=== PATIENT | male | born 1955 | race Caucasian/White ===

== ENCOUNTER 2021-01-17 09:56 | Emergency (ER) | payer MEDICARE, OTHER, SELFPAY ==
[2021-01-17 09:57] VITALS: BP 159/103; PULSE 69; RESP 14; TEMP 37.1; O2SAT 99; BMI 28.7
--- NOTE | 2021-01-17 10:16 | CT_ITS ---
EXAM: CT ABDOMEN AND PELVIS WITHOUT INTRAVENOUS CONTRAST : 1955 CLINICAL INDICATION: lower abd pain TECHNIQUE: Helically acquired images were obtained of the abdomen and pelvis without intravenous contrast. This CT exam was performed using one or more of the following dose reduction techniques: automated exposure control, adjustment of the mA and/or kV according to patient size, and/or use of iterative reconstruction technique. This report was created using [employer] report generation technology. COMPARISON: None. FINDINGS: LOWER THORAX: Unremarkable. Lung bases are clear. No cardiomegaly. No significant pericardial effusion. ABDOMEN: LIVER: Heterogeneous density of the liver suggestive of hepatic steatosis with regions of fat sparing. GALLBLADDER AND BILE DUCTS: Unremarkable. No calcified gallstones. No gallbladder distention or wall edema. No intra- or extrahepatic biliary ductal dilation. PANCREAS: Unremarkable. No focal cystic mass. SPLEEN: Unremarkable. Normal size without focal cystic or solid mass. ADRENALS: Unremarkable. No nodules. KIDNEYS AND URETERS: 3 mm distal right ureteral stone noted associated with right hydronephrosis, right hydroureter and right perinephric edema. Additional stones are noted within the urinary bladder. Small stones are present within both kidneys. Normal renal size and position. STOMACH AND BOWEL: Unremarkable. No stomach or bowel distention. No focal inflammatory change. PELVIS: APPENDIX: Appendix is visualised and normal in appearance. BLADDER: 2 small bladder stones. No bladder wall thickening. REPRODUCTIVE: The prostate gland is moderately enlarged. ABDOMEN and PELVIS: INTRAPERITONEAL SPACE: Unremarkable. No ascites or other fluid collection. No free air. BONES/JOINTS: Bilateral L5 spondylolysis noted with mild L5-S1 spondylolisthesis. Prominent disc degeneration noted at L5-S1. No suspicious lytic or blastic abnormality. SOFT TISSUES: There is a small fat-containing umbilical hernia. VASCULATURE: Unremarkable. Abdominal aorta is non-dilated. LYMPH NODES: Unremarkable. No enlarged lymph nodes. CT/Abdomen/Pelvis without Cont IMPRESSION: 1. Obstructive 3 mm distal right ureteral stone. 2. Bilateral nephrolithiasis. 3. Urinary bladder stones measuring 4 and 3 mm. 4. Prostatomegaly. 5. Hepatic steatosis. Individualized dose optimization techniques were used for this CT. at 1110 Reported and signed by: Trung Jeffers MD Electronically Signed: Trung Jeffers MD at 11:09 EDT Tel , Service support ,
--- NOTE | 2021-01-17 10:17 | ED.VIS.GI ---
HPI HPI - GI History of Present Illness Chief Complaint: Abd Pain Informant: patient Abdominal Pain/Flank Pain Current Severity: Moderate Narrative Narrative: Presents increasing lower abdominal pain since 3 AM this morning. Just flew in from [place] midnight visiting his daughter. Nausea without vomiting. Denies fever chills or sweats. He states feels urgency for bowel movements. No urinary symptoms. No history of diverticulitis. No abdominal surgeries in the past. Colonoscopy 6 years ago with 1 polypectomy in [place]. History of paroxysmal atrial fibrillation on diltiazem and baby aspirin. Prior similar symptoms: No PFSH PFSH Medical History (Updated 01/17/21 @ 13:[address] Krzysztof Floyd DO) A-fib Home Medications aspirin 81 mg PO DAILY 01/17/21 [History Last Taken Unknown] diltiazem HCl [Cardizem LA] 120 mg PO DAILY 01/17/21 [History Last Taken Unknown] ibuprofen 600 mg PO Q6H PRN PRN #20 tab 01/17/21 [Rx Last Taken Unknown] ondansetron 4 mg PO Q6H PRN #10 tab 01/17/21 [Rx Last Taken Unknown] oxycodone-acetaminophen [Percocet] 1 tab PO Q6H PRN 3 Days #12 tab 01/17/21 [Rx Last Taken Unknown] Allergy/AdvReac Type Severity Reaction Status Date / Time No Known Allergies Allergy Verified 01/17/21 09:58 Social History Smoking Status: Never smoker ROS ROS ED Constitutional Constitutional ED: Denies chills, fever(s) or sweats Eyes Eyes: Denies change in vision ENT ENT ED: Denies dysphagia or sore throat Cardiovascular Cardiovascular: Denies chest pain, leg edema, palpitations or racing heartbeat Respiratory/Chest Respiratory/Chest: Denies cough, dyspnea or dyspnea on exertion Gastrointestinal Gastrointestinal: Reports abdominal pain and nausea; Denies diarrhea or vomiting Genitourinary Genitourinary ED: Denies dysuria, hematuria or urinary frequency Musculoskeletal Musculoskeletal: Denies back pain, extremity pain or neck pain Integumentary Denies rash or wounds Neurologic Neurologic: Denies headache(s), paresthesias or weakness EXAM Physical Exam Const Vital Signs: 01/17/21 09:57 Temperature 98.8 F Temperature Source Temporal Pulse Rate 69 Respiratory Rate 14 Blood Pressure 159/103 H Blood Pressure Mean 121 Pulse Ox 99 Oxygen Delivery Method Room Air Positive well nourished and well developed Constitutional Narrative: Uncomfortable, nontoxic General Appearance ED: well developed HEENT Reports moist mucous membranes normocephalic and atraumatic Eyes PERRL, EOMs intact bilaterally and conjunctivae normal General Eye ED: Yes normal appearance of both eyes Neck no lymphadenopathy and supple General: Negative for tenderness Chest Wall Chest: Negative for tenderness Resp normal respiratory effort and normal air movement Effort and Inspection: symmetric chest movement; Negative for respiratory distress Cardio regular rate, regular rhythm and no murmurs Peripheral Pulses: pulses 2+ throughout GI normal to inspection, nondistended, normoactive bowel sounds GI Narrative: Tender palpation across lower abdomen throughout without guarding or rebound. Palpation: soft; Negative for guarding or rebound tenderness present Back/Spine no CVA tenderness and no thoracic nor lumbar tenderness Extremity normal to inspection General Extremety ED: Negative for edema or tenderness General Extremity: Negative for edema Neuro oriented x3 and no sensory deficits noted Sensorium / Orientation: awake and alert Skin no rashes or lesions noted and no wounds MDM MDM MDM Narrative Medical decision making narrative: Patient with no guarding or rebound on exam. Nonsurgical abdomen. Pain in the lower quadrants. Work-up initiated. White count of 14.5 liver and lipase all normal. CT scan with a normal appendix however did note obstructive 3 mm distal right ureteral stone. He was given morphine and Zofran initially. Also reported from notes there is a 3 mm and 4 mm stone currently in his bladder. Reevaluate patient symptoms were improving however slightly there. He is given Toradol with improvement. I did add on a urine noted blood however no infection. He reports he urinated before the CT scan therefore the stones are still there. I discussed with patient these findings. He will be sent home with a urine strainer and follow-up with urology since he will be here for 3 more weeks. Prescription sent to [facility] pharmacy for which he uses at home. Signs and symptoms discussed return. All questions were answered. Lab Data Attestation: I reviewed the patient's lab results. Labs: Laboratory Results - last 24 hr 01/17/21 01/17/21 01/17/21 10:15 10:15 12:05 WBC 14.5 H RBC 4.83 Hgb 14.7 Hct 43.9 MCV 90.9 MCH 30.4 MCHC 33.5 RDW Std Deviation 44.9 H RDW Coeff of Shelly 13.5 Plt Count 237 MPV 10.0 Immature Gran % (Auto) 1.400 H Neut % (Auto) 81.8 H Lymph % (Auto) 9.7 L [place] % (Auto) 6.5 Eos % (Auto) 0.1 Baso % (Auto) 0.5 Absolute Neuts (auto) 11.9 H Absolute Lymphs (auto) 1.41 Nucleated RBC % 0 Sodium 141 Potassium 3.7 Chloride 109 H Carbon Dioxide 29.0 Anion Gap 3 L BUN 24 H Creatinine 1.15 Estim Creat Clear Calc 70.29 Est GFR (MDRD) Af Amer 82 Est GFR (MDRD) Non-Af 68 BUN/Creatinine Ratio 20.9 H Glucose 118 H Calcium 9.7 Total Bilirubin 0.40 AST 15 ALT 38 Alkaline Phosphatase 81 Total Protein 7.5 Albumin 3.8 Globulin 3.7 Albumin/Globulin Ratio 1.0 Lipase 37 L Urine Color Yellow Urine Clarity Clear Urine pH 7.0 Ur Specific [place] 1.015 Urine Protein Negative Urine Glucose (UA) Normal Urine Ketones Negative Urine Occult Blood 50 H Urine Nitrite Negative Urine Bilirubin Negative Urine Urobilinogen Normal Ur Leukocyte Esterase Negative Urine RBC 0-5 SEEN Urine WBC 0 SEEN Ur Squamous Epith Cells 0 SEEN Urine Bacteria 0 SEEN Urine Mucus 0 SEEN Radiography Diagnostic Testing: Radiology Impression Abdomen/Pelvis CT 01/17/21 10:16 IMPRESSION: 1. Obstructive 3 mm distal right ureteral stone. 2. Bilateral nephrolithiasis. 3. Urinary bladder stones measuring 4 and 3 mm. 4. Prostatomegaly. 5. Hepatic steatosis. Individualized dose optimization techniques were used for this CT. at 1110 Reported and signed by: Trung Jeffers MD Electronically Signed: Trung Jeffers MD at 11:09 EDT Tel , Service support , Discharge Plan Triage Chief Complaint: Abd Pain ED Provider: Krzysztof Floyd Dx/Rx/DC Orders Clinical Impression: Urolithiasis, Hematuria Instructions: Hematuria: Possible Causes, ED Kidney Stone w/ Colic Prescriptions: New ondansetron 4 mg tablet,disintegrating 4 mg PO Q6H PRN (Reason: nausea and vomiting) Qty: 10 RF: 0 ibuprofen 600 mg tablet 600 mg PO Q6H PRN PRN (Reason: pain) Qty: 20 RF: 0 oxycodone-acetaminophen [Percocet] 5-325 mg tablet 1 tab PO Q6H PRN (Reason: pain) 3 Days Qty: 12 RF: 0 No Action Cardizem LA 120 mg Tablet Extended Release 24 Hr 120 mg PO DAILY RF: 0 aspirin 81 mg Capsule 81 mg PO DAILY RF: 0 Primary Care Provider: Care Physician,No Primary Referrals: Jalen Stephens MD [STAFF PHYSICIAN] - 3-5 Days Care Physician,No Primary [Primary Care Provider] - Activity Restrictions/Additional Instructions: Currently 3 mm distal right ureteral stone. 2 stones currently in the bladder one 3 mm and one 4 mm. Strain your urine. Take medications as prescribed. Follow-up with urology. Return if any worsening symptoms. Disposition Disposition: Home, Self Care
[2021-01-17] MEDS: Ondansetron 4 MG/2 ML Vial IV (10:34)
[2021-01-17] MEDS: 0.9% Normal Saline 1,000 ML 1000 ML IV (10:34)
[2021-01-17] MEDS: Morphine 4 MG/ML Syringe IV (10:34)
[2021-01-17 10:38] LABS: Absolute Lymphocyte Count 1.41 X10^3/uL (0.83-4.51); Absolute Neutrophil Count 11.9 X10^3/uL (2.0-7.7); Basophil# 0.07 X10^3/uL; Basophil% 0.5 % (0-1); Eosinophil# 0.01 X10^3/uL; Eosinophils% 0.1 % (0-5); Hematocrit 43.9 % (40-54); Hemoglobin 14.7 g/dL (13.0-16.5); Lymphocyte # 1.41 X10^3/ul (0.83-4.51); Lymphocyte % 9.7 % (19-41); Mean Corp Hgb Conc 33.5 g/dL (32-36); Mean Corpuscular Hgb 30.4 pg (27.0-32.0); Mean Corpuscular Volume 90.9 fL (80-94); Monocyte# 0.95 X10^3/uL; Monocyte% 6.5 % (0-10); NRBC Flagged by Analyzer 0 % (0-5); Neutrophil # 11.87 X10^3/uL (2.7-7.7); Neutrophil % 81.8 % (47-70); Platelet Count 237 K/mm3 (150-450); RBC Distribution Width CV 13.5 % (11.6-14.6); RBC Distribution Width SD 44.9 fl (35.1-43.9); Red Blood Count 4.83 M/mm3 (4.6-6.2); White Blood Count 14.5 K/mm3 (4.4-11.0)
[2021-01-17 10:55] LABS: AST(SGOT) 15 U/L (15-37); Alanine Aminotransfer ALT/SGPT 38 U/L (16-61); Albumin, Serum 3.8 g/dL (3.2-5.0); Alkaline Phosphatase 81 U/L (45-117); Anion Gap 3 (5-15); BUN 24 mg/dL (7-18); BUN/Creat Ratio 20.9 RATIO (10-20); Calcium,Total 9.7 mg/dL (8.5-10.1); Chloride 109 mmol/L (98-107); Creatinine, Serum 1.15 mg/dL (0.70-1.30); EST Glomerular Filtration Rate 68 mL/min (>60); Est Glom Filt Rate - Afr Amer 82 mL/min (>60); Estimated Creatinine Clearance 70.29 ml/min; Globulin 3.7 g/dL (2.2-4.2); Glucose 118 mg/dL (74-106); Lipase 37 U/L (73-393); Potassium 3.7 mmol/L (3.5-5.1); Protein, Total 7.5 g/dL (6.4-8.2); Sodium Level 141 mmol/L (136-145)
[2021-01-17 12:10] LABS: Bacteria 0 SEEN /hpf (None Seen); Mucous, Urine 0 SEEN /hpf (<or=2+); Squamous Epithelial Cells - UA 0 SEEN /hpf (0-5); White Blood Cells 0 SEEN /hpf (0-5)
[2021-01-17 12:13] LABS: Color, Urine Yellow (Yellow); Glucose, Dipstick Normal (Normal); Ketone-Dipstick Negative (Negative); Leukocyte Esterase-Dipstick Negative /ul (Negative); Nitrite-Dipstick Negative (Negative); Occult Blood-Urine 50 /ul (Negative); Protein-Dipstick Negative (Negative); Specific Gravity, Urine 1.015 (1.002-1.030); Urine Bilirubin Dipstick Negative (Negative); Urine Clarity Clear (Clear); Urine Urobilinogen Normal (Normal)
[2021-01-17 12:28] LABS: Red Blood Cells-Urine 0-5 SEEN /hpf (0-5)
[2021-01-17] MEDS: Ketorolac 15 MG/ML Vial IV (12:38)
[2021-01-17 13:23] VITALS: BP 142/79; PULSE 84; RESP 18; O2SAT 97
--- NOTE | 2021-01-17 13:24 | ED.RN ---
THIS NURSE REVIEWED D/C INSTRUCTIONS WITH PT. PT VERBALIZED UNDERSTANDING OF INSTRUCTIONS. IV D/C. IV CATHETER INTACT. PT TOLERATED WELL. PT DENIES FURTHER NEEDS OR QUESTIONS AT THIS TIME
== END 2021-01-17 13:25 | disposition home or self-care (01) ==
PROVIDERS: Emergency Provider Emergency Medicine
DX: R31.9 Hematuria, unspecified (principal); N20.2 Calculus of kidney with calculus of ureter; N21.0 Calculus in bladder; N40.0 Benign prostatic hyperplasia without lower urinary tract symptoms; K76.0 Fatty (change of) liver, not elsewhere classified; I48.0 Paroxysmal atrial fibrillation; Z79.82 Long term (current) use of aspirin; Z79.899 Other long term (current) drug therapy
CPT/HCPCS: 74176; 80053; 81001; 83690; 85025; 96361; 96374; 96375; 99283; J7030; A4216; J2405

== ENCOUNTER → 2022-09-19 | Outpatient (CLI) | payer MEDICARE, OTHER, SELFPAY ==
--- NOTE | 2022-09-19 06:45 | ECHOD_ITS ---
Reason For Study: Afib, Aflutter Procedure This was a 2D Doppler, Color Flow transthoracic echocardiogram. Exam performed in department. Left Ventricle Mild concentric left ventricular hypertrophy. The left ventricular ejection fraction is 65 %. Diastolic function is indeterminate. Right Ventricle Normal right ventricle. Atria The left atrium is severely enlarged. Normal right atrium. Bubble contrast study is negative for PFO/ASD. Mitral Valve Mild-Moderate (1-2+) mitral valve insufficiency. Tricuspid Valve Mild (1+) tricuspid valve insufficiency. Normal pulmonary artery pressure. Aortic Valve Trisinus/trileaflet aortic valve. Trivial aortic valve insufficiency. Pulmonic Valve Mild-Moderate (1-2+) pulmonic valve insufficiency. Great Vessels Normal sized aortic root. Pericardium/Pleural No pericardial effusion. Medication Performed a rapid injection of agitated mix of 9 cc saline and 1cc air to assess for atrial septal defect. MMode/2D Measurements & Calculations LVIDd: 5.9 cm IVSd: 1.3 cm Ao root diam: 3.6 cm LVIDs: 3.2 cm LVPWd: 1.4 cm RVDd: 3.0 cm FS: 45.5 % LAV(MOD-bp): 72.7 ml LVAd ap4: 32.0 cm2 SV(MOD-sp4): 60.4 ml LAV(MOD-bp) Indexed: 32.5 ml/m2 LVLd ap4: 8.1 cm LAV(MOD-sp2): 64.7 ml EDV(MOD-sp4): 101.3 ml LAV(MOD-sp4): 80.7 ml EDV(sp4-el): 107.7 ml LVAs ap4: 19.0 cm2 LVLs ap4: 7.4 cm ESV(MOD-sp4): 40.8 ml ESV(sp4-el): 41.5 ml EF(MOD-sp4): 59.7 % EF(sp4-el): 61.4 % SV(sp4-el): 66.2 ml LA A4 area: 25.7 cm2 LA dimension(2D): 5.1 cm RA A4 area: 14.5 cm2 TAPSE_phl: 2.6 cm Time Measurements MV dec time: 0.25 sec Doppler Measurements & Calculations MV E max ray: 76.2 cm/sec Lat Peak E' Ray: 5.2 cm/sec Med Peak E' Ray: 6.1 cm/sec MV A max ray: 67.0 cm/sec E/E' lat: 14.8 E/E' med: 12.5 MV E/A: 1.1 MV dec slope: 308.0 cm/sec2 Ao V2 max: 112.5 cm/sec LV V1 max: 86.2 cm/sec Ao max P.1 mmHg LV V1 max P.0 mmHg Ao V2 mean: 78.1 cm/sec Ao mean P.8 mmHg Ao V2 VTI: 26.4 cm PA V2 max: 69.3 cm/sec PI end-d ray: 79.1 cm/sec TR max ray: 231.4 cm/sec TR max P.4 mmHg ECHO/Echo Complete Interpretation Summary Mild concentric left ventricular hypertrophy. The left ventricular ejection fraction is 65 %. Diastolic function is indeterminate. The left atrium is severely enlarged. Bubble contrast study is negative for PFO/ASD. Mild-Moderate (1-2+) mitral valve insufficiency. Mild (1+) tricuspid valve insufficiency. Mild-Moderate (1-2+) pulmonic valve insufficiency. Ordering Physician: Enid Sparrow Referring Physician: Emma Tilley Performed By: Pat Valdivia, RDCS, RVT
--- NOTE | 2022-09-19 13:20 | STRESSREP_ITS ---
Stress Test Report Date: 09/19/2022 Procedure: Pharmacologic stress nuclear imaging study Indications: Arrhythmia Consent: Per the patient Procedure: The patient underwent pharmacologic (Regadenoson 0.4mg ) evaluation with a peak heart rate of 81 beats per minute (52%predicted maximal heart rate) and a peak blood pressure of 142/86 mmHg. The baseline ECG demonstrated normal sinus rhythm. The peak pharmacologic ECG demonstrated no ischemic changes. There were no cardiac dysrhythmias pretest, during pharmacologic infusion, or recovery. There was no complaint of chest discomfort during pharmacologic infusion or recovery. The patient was injected with 14.3 millicuries of technetium 99m Cardiolite and subsequently rest SPECT Cardiolite nuclear imaging was obtained in the horizontal long, vertical long, and short axis views. The patient underwent pharmacologic (Regadenoson) evaluation. The patient was injected with 44.1 millicuries of technetium 99m Cardiolite and subsequently stress SPECT Cardiolite nuclear imaging was obtained in the horizontal long, vertical long, and short axis views. A gated Cardiolite study at peak stress was obtained. The examination was stopped secondary to completion of protocol. Rest and stress SPECT Cardiolite nuclear imaging status post realignment, normalization, and attenuation correction demonstrate no fixed or reversible perfusion defects. There is end systolic thickening and brightening. The gated Cardiolite study demonstrates myocardial thickening and inward wall motion. The reported LVEF is 56%. Impression: 1. Pharmacologic (Regadenoson) evaluation 2. Peak pharmacologic ECG with no ischemic changes. 3. There were no cardiac dysrhythmias pretest, during pharmacologic infusion, or recovery. 5. No fixed or reversible perfusion defects. 6. The gated Cardiolite study reports an LVEF of 56%. This note was generated with [email or web address] software. It may contain incorrect words, spelling, and punctuation that were not noted in checking the note before signing.
== END | disposition home or self-care (01) ==
LOC: CVS 06:43
PROVIDERS: PCP Nurse Practitioner Adult Health; Referring Provider Internal Medicine Cardiovascular Disease; Visit Provider Internal Medicine Cardiovascular Disease
DX: Z01.810 Encounter for preprocedural cardiovascular examination (principal); I48.0 Paroxysmal atrial fibrillation; I47.1 Supraventricular tachycardia; I48.92 Unspecified atrial flutter; I37.1 Nonrheumatic pulmonary valve insufficiency; I51.7 Cardiomegaly
CPT/HCPCS: 78452; 93017; 93306; A9500; A4216; J2785

== ENCOUNTER → 2023-06-05 | Outpatient (CLI) | payer MEDICARE, OTHER, SELFPAY ==
[2023-06-05 14:28] LABS: Absolute Lymphocyte Count 2.33 X10^3/uL (0.83-4.51); Absolute Neutrophil Count 6.5 X10^3/uL (2.0-7.7); Basophil# 0.07 X10^3/uL; Basophil% 0.7 % (0-1); Eosinophil# 0.06 X10^3/uL; Eosinophils% 0.6 % (0-5); Hematocrit 37.6 % (40-54); Lymphocyte # 2.33 X10^3/ul (0.83-4.51); Lymphocyte % 23.3 % (19-41); Mean Corp Hgb Conc 31.9 g/dL (32-36); Mean Corpuscular Hgb 28.2 pg (27.0-32.0); Mean Corpuscular Volume 88.5 fL (80-94); Monocyte# 0.98 X10^3/uL; Monocyte% 9.8 % (0-10); NRBC Flagged by Analyzer 0 % (0-5); Neutrophil # 6.53 X10^3/uL (2.7-7.7); Neutrophil % 65.1 % (47-70); Platelet Count 325 K/mm3 (150-450); RBC Distribution Width CV 14.5 % (11.6-14.6); RBC Distribution Width SD 46.9 fl (35.1-43.9); Red Blood Count 4.25 M/mm3 (4.6-6.2)
--- OUTSIDE RECORDS SUMMARY | 2023-06-05 14:28 | XMS RPT_ITS | CCD ---
Author Name Unknown Address [address] [facility] [address] [place] [address] Organization [facility] Care Team Providers Care Extractor Puller Name Role Phone NO, PHYSICIAN Primary Care Unavailable SYSTEM, PROVIDER NOT IN Admitting Unavaila ble SYSTEM, PROVIDER NOT IN Admitting Unavaila ble NO, PHYSICIAN Primary Care Unavailable Pcp, No Primary Care Provider Unavailhilda e Jerry [facility].Ryan VALENTIN Primary Care Provider Jerry [facility].Ryan VALENTIN Primary Care Provider Chucky Tim Heart Unavailable RYAN EDWARDS Primary Care Unavailable STAN TAI JR Attending Unavaila STAN Rankin JR Referring Unavaila ILEANA Burns Attending Unavailable RYAN EDWARDS Primary Care Unavailable Katya Ortiz RN Unavailable Unavailable RYAN EDWARDS Referring Unavailable RYAN EDWARDS Primary Care Unavailable RYAN EDWARDS Primary Care Unavailable SHAN SOTO Admitting Unavail able SHAN SOTO Attending Unavail able LINDA PARK Attending Unavailable RYAN EDWARDS Primary Care Unavailable RYAN EDWARDS Primary Care Unavailable SVITLANA DREW Attending Unavailable TYREL MAXWELL Referring Unavailable CHUYITA RHODES Consulting Unavailable LALI GEORGE II Admitting Unavailable RYAN EDWARDS Primary Care Unavailable RYAN EDWARDS Referring Unavailable RYAN EDWARDS Primary Care Unavailable SHAN SOTO Attending Unavail able RYAN EDWARDS Primary Care Unavailable SHAN SOTO Attending Unavail able RYAN EDWARDS Referring Unavailable CARLOS ENRIQUE HUGHES Admitting Unavaila CARLOS ENRIQUE Hoffman Attending Unavaila ble JERRY, RYAN M Primary Care Unavailable JERRY, RYAN M Primary Care Unavailable JERRY, RYAN M Referring Unavailable JERRY, RYAN M Primary Care Unavailable JERRY, RYAN M Referring Unavailable JERRY RYAN M Primary Care Unavailable JERRY, RYAN M Referring Unavailable JERRY, RYAN M Primary Care Unavailable JERRY, RAYN M Referring Unavailable JERRY, RYAN M Primary Care Unavailable JERRY, RYAN M Referring Unavailable JERRY, RYAN M Primary Care Unavailable JERRY, RYAN M Attending Unavailable JERRY, RYAN M Primary Care Unavailable JERRY, RYAN M Attending Unavailable JERRY, RYAN M Primary Care Unavailable JERRY, RYAN M Referring Unavailable JERRY, RYAN M Primary Care Unavailable JERRY, RYAN M Referring Unavailable JERRY, RYAN M Primary Care Unavailable JERRY, RYAN M Attending Unavailable JERRY, RYAN M Primary Care Unavailable JERRY, RYAN M Referring Unavailable JERRY, RYAN M Primary Care Unavailable STAN TAI JR Attending Unavaila ble RYAN EDWARDS M Primary Care Unavailable ANALISA DAMON Attending Unavailable JERRY, RYAN M Primary Care Unavailable TABITHA MARTINS Attending Unava ilable JERRY, RYAN M Primary Care Unavailable TABITHA MARTINS Attending Unava ilable JERRY, RYAN M Primary Care Unavailable JERRY, RYAN M Referring Unavailable JERRY, RYAN M Primary Care Unavailable JERRY, RYAN M Primary Care Unavailable JERRY, RYAN M Referring Unavailable JERRY, RYAN M Primary Care Unavailable JERRY, RYAN M Attending Unavailable JERRY, RYAN M Referring Unavailable JERRY, RYAN M Primary Care Unavailable JERRY, RYAN M Referring Unavailable JERRY, RYAN M Primary Care Unavailable JERRY, RYAN M Referring Unavailable JERRY, RYAN M Primary Care Unavailable JERRY, RYAN M Referring Unavailable JERRY, RYAN M Primary Care Unavailable JERRY, RYAN M Referring Unavailable JERRY, RYAN M Primary Care Unavailable JERRY, RYAN M Referring Unavailable JERRY, RYAN M Referring Unavailable JERRY, RYAN M Primary Care Unavailable JERRY, RYAN M Primary Care Unavailable TYREL MAXWELL Attending Unavailable JERRY, RYAN M Primary Care Unavailable JERRY, RYAN M Attending Unavailable JERRY, RYAN M Primary Care Unavailable JERRY, RYAN M Attending Unavailable JERRY, RYAN M Referring Unavailable JERRY, RYAN M Primary Care Unavailable JERRY, RYAN M Referring Unavailable JERRY, RYAN M Primary Care Unavailable JERRY, RYAN M Primary Care Unavailable JERRY, RYAN M Referring Unavailable JERRY, RYAN M Referring Unavailable JERRY, RYAN M Primary Care Unavailable JERRY, RYAN M Referring Unavailable JERRY, RYAN M Primary Care Unavailable STAN TAI JR Referring Unavaila ble JERRY, RYAN M Primary Care Unavailable JERRY, RYAN M Attending Unavailable JERRY, RYAN M Primary Care Unavailable JERRY, RYAN M Referring Unavailable RICKEY WOODRUFF Attending Unavailabl e JERRY, RYAN M Primary Care Unavailable RICKEY WOODRUFF Referring Unavailabl e JERRY, RYAN M Primary Care Unavailable RICKEY WOODRUFF Attending Unavailabl e JERRY, RYAN M Primary Care Unavailable JERRY, RYAN M Referring Unavailable JERRY, RYAN M Primary Care Unavailable JERRY, RYAN M Referring Unavailable JERRY, RYAN M Primary Care Unavailable JERRY, RYAN M Primary Care Unavailable JERRY, RYAN M Referring Unavailable JERRY, RYAN M Primary Care Unavailable JERRY, RYAN M Referring Unavailable JERRY, RYAN M Primary Care Unavailable JERRY, RYAN M Referring Unavailable JERRY, RYAN M Primary Care Unavailable JERRY, RYAN M Referring Unavailable JERRY, RYAN M Primary Care Unavailable JERRY, RYAN M Primary Care Unavailable JERRY, RYAN M Referring Unavailable JERRY, RYAN M Referring Unavailable JERRY, RYAN M Primary Care Unavailable Medications Current Medications Medication Drug Class(es) Dates Sig (Normalized) Sig (Original) acetaminophen 325 mg / oxyCODONE hydrochloride 5 mg oral tablet (2 sources) Opioid Agonist Start: 02-01-2023 End: 02-04-2023 take 1 tablet by mouth every six hours as needed for pain oxyCODONE-acetamin ophen (PERCOCET) 5-325 mg tablet Indications: Acute gout of right ankle, unspecified cause Take 1 tablet by mouth every 6 hours as needed for pain for up to 3 days. 12 tablet 0 02/01/2023 02/04/2023 Active Completed/Discontinued Medications Medication Drug Class(es) Dates Sig (Normalized) Sig (Original) finasteride 5 mg oral tablet (18 sources) 5-alpha Reductase Inhibitor Start: 12-30-2022 End: 06-28-2023 take 1 tablet by mouth once daily finasteride (PROSCAR) 5 mg tablet TAKE 1 TABLET BY MOUTH EVERY DAY 30 tablet 5 01/26/2023 Active Problems Active Problems Problem Classification Problem Date Documented Da te Episodic/Chronic Cardiac dysrhythmias (20 sources) Unspecified atrial fibrillation; Translations: [Atrial fibrillation] Onset: 02-11-2022 Chronic Disorders of lipid metabolism (3 sources) Hypercholesterolemi a; Translations: [Pure hypercholesterolemi a, unspecified] Onset: 01-26-2023 01-05-2023 Chronic Gout and other crystal arthropathies (1 source) Gout, unspecified; Translations: [Acute gout of right ankle, unspecified cause] Onset: 02-01-2023 Chronic Hyperplasia of prostate (3 sources) Benign prostatic hypertrophy without outflow obstruction; Translations: [Benign prostatic hyperplasia without lower urinary tract symptoms] Onset: 06-26-2022 Chronic Immunizations and screening for infectious disease (1 source) Requires varicella vaccination; Translations: [Encounter for immunization] Episodic Nonspecific chest pain (4 sources) Chest discomfort; Translations: [Other chest pain] Onset: 04-28-2023 04-28-2023 Episodic Nutritional deficiencies (2 sources) Vitamin D deficiency; Translations: [Vitamin D deficiency, unspecified] Onset: 09-18-2022 Chronic Open wounds of extremities (2 sources) Unspecified open wound, unspecified lower leg, initial encounter; Translations: [Laceration without foreign body of unspecified finger without damage to nail, initial encounter] Onset: 06-09-2022 Episodic Other aftercare (2 sources) Encounter for therapeutic drug level monitoring; Translations: [Encounter for therapeutic drug level monitoring] Onset: 02-11-2022 Episodic Other aftercare (2 sources) group home (current) use of anticoagulants; Translations: [buttermaker continuous churn (current) use of anticoagulants] Onset: 02-11-2022 Episodic Other circulatory disease (6 sources) Elevated blood-pressure reading without diagnosis of hypertension; Translations: [Elevated blood-pressure reading, without diagnosis of hypertension] Onset: 04-20-2023 04-20-2023 Episodic Other circulatory disease (1 source) Elevated blood-pressure reading, without diagnosis of hypertension; Translations: [Elevated BP without diagnosis of hypertension] Onset: 04-20-2023 Episodic Other connective tissue disease (1 source) Pain in right arm; Translations: [Pain in right arm] Episodic Other connective tissue disease (1 source) Diastasis recti; Translations: [Separation of muscle (nontraumatic), other site] Episodic Other connective tissue disease (1 source) Bursitis of olecranon of left elbow; Translations: [Olecranon bursitis, left elbow] 04-19-2023 Episodic Other connective tissue disease (5 sources) Infection of olecranon bursa of left elbow; Translations: [Other infective bursitis, left elbow] Onset: 04-22-2023 04-24-2023 Episodic Other connective tissue disease (2 sources) Other infective bursitis, left elbow; Translations: [Septic bursitis of elbow, left] Onset: 04-22-2023 Episodic Other connective tissue disease (1 source) Olecranon bursitis, left elbow; Translations: [Olecranon bursitis, left elbow] Onset: 03-23-2023 Episodic Other diseases of veins and lymphatics (1 source) Venous insufficiency (chronic) (peripheral); Translations: [Venous insufficiency of lower extremity, unspecified laterality] Onset: 04-22-2023 Episodic Other gastrointestinal disorders (1 source) Diarrhea, unspecified; Translations: [Diarrhea, unspecified type] Onset: 05-19-2023 Episodic Other injuries and conditions due to external causes (5 sources) Injury of Achilles tendon; Translations: [Unspecified injury of right Achilles tendon, initial encounter] 04-02-2023 Episodic Other injuries and conditions due to external causes (1 source) Unspecified injury of right Achilles tendon, initial encounter; Translations: [Injury of right Achilles tendon, initial encounter] Onset: 04-20-2023 Episodic Other lower respiratory disease (4 sources) Dyspnea on exertion; Translations: [Other forms of dyspnea] Onset: 04-28-2023 04-28-2023 Episodic Other male genital disorders (4 sources) Male erectile dysfunction, unspecified; Translations: [Impotence of organic origin] Onset: 03-11-2023 Chronic Other nervous system disorders (1 source) H/O: retinal detachment; Translations: [Personal history of other diseases of the nervous system and sense organs] 12-03-2022 Episodic Other nervous system disorders (1 source) Personal history of other diseases of the nervous system and sense organs; Translations: [Hx of retinal detachment] Onset: 12-04-2022 Episodic Other non-traumatic joint disorders (4 sources) Acute ankle pain; Translations: [Pain in right ankle and joints of right foot] 02-10-2023 Episodic Residual codes; unclassified (6 sources) Obstructive sleep apnea syndrome; Translations: [Obstructive sleep apnea (adult) (pediatric)] Onset: 04-20-2023 04-20-2023 Chronic Residual codes; unclassified (1 source) Obstructive sleep apnea (adult) (pediatric); Translations: [SHANNON (obstructive sleep apnea)] Onset: 04-20-2023 Chronic Residual codes; unclassified (4 sources) Localized edema; Translations: [Localized edema] Onset: 04-28-2023 04-28-2023 Episodic Septicemia (except in labor) (1 source) Sepsis, unspecified organism; Translations: [Sepsis, due to unspecified organism, unspecified whether acute organ dysfunction present (HCC)] Onset: 04-22-2023 Episodic Skin and subcutaneous tissue infections (8 sources) Cellulitis of left upper limb; Translations: [Cellulitis of left upper limb] Onset: 03-23-2023 04-24-2023 Episodic Sprains and strains (3 sources) Injury of shoulder and upper arm; Translations: [Strain of muscle, fascia and tendon of other parts of biceps, right arm, initial encounter] Onset: 03-28-2023 Episodic Unclassified (1 source) ER F/U Onset: 04-16-2023 Past or Other Problems Problem Classification Problem Date Documented Da te Episodic/Chronic Abdominal hernia (4 sources) Umbilical hernia; Translations: [Umbilical hernia without obstruction or gangrene] Onset: 10-14-2022 Episodic Melanomas of skin (20 sources) History of malignant melanoma of the skin; Translations: [Personal history of malignant melanoma of skin] Onset: 10-17-2003 10-17-2003 Episodic Other aftercare (20 sources) Surgical follow-up; Translations: [Follow-up examination following surgery] Onset: 10-24-2003 10-24-2003 Episodic Other connective tissue disease (20 sources) Enthesopathy of knee; Translations: [Enthesopathy of knee] Onset: 10-10-2003 10-10-2003 Episodic Other diseases of kidney and ureters (1 source) Other obstructive and reflux uropathy; Translations: [BPH with obstruction/lower urinary tract symptoms] Onset: 06-26-2022 Episodic Other non-traumatic joint disorders (1 source) Pain in right ankle and joints of right foot; Translations: [Acute right ankle pain] Onset: 02-10-2023 Episodic Other screening for suspected conditions (not mental disorders or infectious disease) (20 sources) Raised prostate specific antigen; Translations: [Elevated prostate specific antigen [PSA]] Onset: 06-11-2022 Episodic Results Test Name Value Interpretation Reference Range Facil ity Vital Signs Date Time Vital Sign Value Performing Clinician Faci lity 05-07-2023 08:28-0500 Body height 182.9 cm Ryan Edwards APRN.BARBIE Work Phone: [facility] 05-07-2023 08:28-0500 Body temperature 97.81 [degF] Ryan Edwards APRN.DATA SYSTEMS MANAGER Work Phone: [facility] 05-07-2023 08:28-0500 Body weight 104.33 kg Ryan Edwards APRN.CNP Work Phone: [facility] 05-07-2023 08:28-0500 Diastolic blood pressure 70 mm[Hg] Ryan Edwards APRN.DATA SYSTEMS MANAGER Work Phone: [facility] 05-07-2023 08:28-0500 Heart rate 64 /min Ryan Edwards APRN.DATA SYSTEMS MANAGER Work Phone: [facility] 05-07-2023 08:28-0500 Respiratory rate 18 /min Ryan Edwards APRN.DATA SYSTEMS MANAGER Work Phone: [facility] 05-07-2023 08:28-0500 SaO2% (BldA) [Mass fraction] 96 % Ryan Edwards APRN.DATA SYSTEMS MANAGER Work Phone: [facility] 05-07-2023 08:28-0500 Systolic blood pressure 122 mm[Hg] Ryan Jerry [facility].DATA SYSTEMS MANAGER Work Phone: [facility] 04-16-2023 11:35-0500 Body temperature 97.59 [degF] Ryan Jerry [facility].DATA SYSTEMS MANAGER Work Phone: [facility] 04-16-2023 11:35-0500 Diastolic blood pressure 70 mm[Hg] Ryan Jerry [facility].DATA SYSTEMS MANAGER Work Phone: [facility] 04-16-2023 11:35-0500 Heart rate 67 /min Ryan Jerry [facility].DATA SYSTEMS MANAGER Work Phone: [facility] 04-16-2023 11:35-0500 Respiratory rate 18 /min Ryan Jerry [facility].DATA SYSTEMS MANAGER Work Phone: [facility] 04-16-2023 11:35-0500 SaO2% (BldA) [Mass fraction] 97 % Ryan Jerry [facility].DATA SYSTEMS MANAGER Work Phone: [facility] 04-16-2023 11:35-0500 Systolic blood pressure 122 mm[Hg] Ryan Jerry [facility].DATA SYSTEMS MANAGER Work Phone: [facility] 04-15-2023 10:08-0500 Body height 182.9 cm Rickey Kacy DPM Work Phone: [facility] 04-15-2023 10:08-0500 Body weight 104.33 kg Rickey Kacy DPM Work Phone: [facility] 04-15-2023 10:08-0500 Respiratory rate 18 /min Rickey Kacy DPM Work Phone: [facility] 04-02-2023 08:22-0500 Body height 182.9 cm Rickey Kacy DPM Work Phone: [facility] 04-02-2023 08:22-0500 Body weight 104.33 kg Rickey Kacy DPM Work Phone: [facility] 04-02-2023 08:22-0500 Respiratory rate 16 /min Rickey Woodruff DPM Work Phone: [facility] 03-11-2023 10:11-0400 Diastolic blood pressure 62 mm[Hg] Ryan Jerry [facility].DATA SYSTEMS MANAGER Work Phone: [facility] 03-11-2023 10:11-0400 Systolic blood pressure 122 mm[Hg] Ryan Jerry [facility].DATA SYSTEMS MANAGER Work Phone: [facility] 03-11-2023 09:53-0400 Body height 182.9 cm Ryan Jerry [facility].DATA SYSTEMS MANAGER Work Phone: [facility] 03-11-2023 09:53-0400 Body temperature 97.81 [degF] Ryan Jerry [facility].DATA SYSTEMS MANAGER Work Phone: [facility] 03-11-2023 09:53-0400 Body weight 104.78 kg Ryan Jerry [facility].DATA SYSTEMS MANAGER Work Phone: [facility] 03-11-2023 09:53-0400 Heart rate 88 /min Ryan Jerry [facility].DATA SYSTEMS MANAGER Work Phone: [facility] 03-11-2023 09:53-0400 Respiratory rate 18 /min Ryan Jerry [facility].DATA SYSTEMS MANAGER Work Phone: [facility] 03-11-2023 09:53-0400 SaO2% (BldA) [Mass fraction] 98 % Ryan Jerry [facility].DATA SYSTEMS MANAGER Work Phone: [facility] 03-02-2023 08:10-0400 Diastolic blood pressure 78 mm[Hg] Nurse Saint Peter Work Phone: [facility] 03-02-2023 08:10-0400 Systolic blood pressure 128 mm[Hg] Nurse Saint Peter Work Phone: [facility] 02-10-2023 08:08-0400 Diastolic blood pressure 80 mm[Hg] Ryan Jerry [facility].DATA SYSTEMS MANAGER Work Phone: [facility] 02-10-2023 08:08-0400 Systolic blood pressure 132 mm[Hg] Ryan Jerry [facility].DATA SYSTEMS MANAGER Work Phone: [facility] 02-10-2023 07:56-0400 Body height 182.9 cm Ryan Jerry [facility].DATA SYSTEMS MANAGER Work Phone: [facility] 02-10-2023 07:56-0400 Body temperature 98.2 [degF] Ryan Jerry [facility].DATA SYSTEMS MANAGER Work Phone: [facility] 02-10-2023 07:56-0400 Body weight 106.69 kg Ryan Jerry [facility].DATA SYSTEMS MANAGER Work Phone: [facility] 02-10-2023 07:56-0400 Heart rate 62 /min Ryan Jerry [facility].DATA SYSTEMS MANAGER Work Phone: [facility] 02-10-2023 07:56-0400 Respiratory rate 18 /min Ryan Jerry [facility].DATA SYSTEMS MANAGER Work Phone: [facility] 02-10-2023 07:56-0400 SaO2% (BldA) [Mass fraction] 96 % Ryan Jerry [facility].DATA SYSTEMS MANAGER Work Phone: [facility] 12-29-2022 08:39-0400 Diastolic blood pressure 78 mm[Hg] Nurse Saint Peter Work Phone: [facility] 12-29-2022 08:39-0400 Systolic blood pressure 128 mm[Hg] Nurse Saint Peter Work Phone: [facility] 12-15-2022 08:21-0400 Diastolic blood pressure 78 mm[Hg] Nurse Saint Peter Work Phone: [facility] 12-15-2022 08:21-0400 Systolic blood pressure 128 mm[Hg] Nurse Saint Peter Work Phone: [facility] 12-08-2022 08:15-0400 Diastolic blood pressure 78 mm[Hg] Nurse Saint Peter Work Phone: [facility] 12-08-2022 08:15-0400 Systolic blood pressure 128 mm[Hg] Nurse Saint Peter Work Phone: [facility] 10-22-2022 08:50-0400 Diastolic blood pressure 78 mm[Hg] Nurse Saint Peter Work Phone: [facility] 10-22-2022 08:50-0400 Systolic blood pressure 128 mm[Hg] Nurse Saint Peter Work Phone: [facility] 09-23-2022 08:20-0400 Diastolic blood pressure 78 mm[Hg] Nurse Saint Peter Work Phone: [facility] 09-23-2022 08:20-0400 Systolic blood pressure 128 mm[Hg] Nurse Saint Peter Work Phone: [facility] 09-18-2022 08:13-0400 Diastolic blood pressure 78 mm[Hg] Nurse Saint Peter Work Phone: [facility] 09-18-2022 08:13-0400 Systolic blood pressure 128 mm[Hg] Nurse Saint Peter Work Phone: [facility] 09-16-2022 09:48-0400 Body height 182.9 cm Ryan Jerry [facility].DATA SYSTEMS MANAGER Work Phone: [facility] 09-16-2022 09:48-0400 Body temperature 98.2 [degF] Ryan Jerry [facility].DATA SYSTEMS MANAGER Work Phone: [facility] 09-16-2022 09:48-0400 Body weight 101.61 kg Ryan Jerry [facility].DATA SYSTEMS MANAGER Work Phone: [facility] 09-16-2022 09:48-0400 Diastolic blood pressure 70 mm[Hg] Ryan Jerry [facility].DATA SYSTEMS MANAGER Work Phone: [facility] 09-16-2022 09:48-0400 Heart rate 65 /min Ryan Jerry [facility].DATA SYSTEMS MANAGER Work Phone: [facility] 09-16-2022 09:48-0400 Respiratory rate 18 /min Ryan Jerry [facility].DATA SYSTEMS MANAGER Work Phone: [facility] 09-16-2022 09:48-0400 SaO2% (BldA) [Mass fraction] 96 % Ryan Edwards [facility].DATA SYSTEMS MANAGER Work Phone: [facility] 09-16-2022 09:48-0400 Systolic blood pressure 122 mm[Hg] Ryan Edwards [facility].DATA SYSTEMS MANAGER Work Phone: [facility] 08-04-2022 13:19-0400 Body height 182.9 cm Shan Soto MD Work Phone: [facility] 08-04-2022 13:19-0400 Body weight 104.78 kg Shan Soto MD Work Phone: [facility] 08-04-2022 13:19-0400 Diastolic blood pressure 82 mm[Hg] Shan Soto MD Work Phone: [facility] 08-04-2022 13:19-0400 Heart rate 71 /min Shan Soto MD Work Phone: [facility] 08-04-2022 13:19-0400 Systolic blood pressure 158 mm[Hg] Shan Soto MD Work Phone: [facility] 08-04-2022 08:38-0400 Diastolic blood pressure 78 mm[Hg] Nurse Saint Peter Work Phone: [facility] 08-04-2022 08:38-0400 Systolic blood pressure 128 mm[Hg] Nurse Saint Peter Work Phone: [facility] 07-28-2022 08:25-0400 Diastolic blood pressure 70 mm[Hg] Nurse Saint Peter Work Phone: [facility] 07-28-2022 08:25-0400 Systolic blood pressure 126 mm[Hg] Nurse Saint Peter Work Phone: [facility] 07-21-2022 08:14-0500 Diastolic blood pressure 70 mm[Hg] Nurse Saint Peter Work Phone: [facility] 07-21-2022 08:14-0500 Systolic blood pressure 122 mm[Hg] Nurse Saint Peter Work Phone: [facility] 07-11-2022 08:23-0500 Diastolic blood pressure 70 mm[Hg] Nurse Saint Peter Work Phone: [facility] 07-11-2022 08:23-0500 Systolic blood pressure 124 mm[Hg] Nurse Saint Peter Work Phone: [facility] 06-26-2022 10:58-0500 Body height 182.9 cm Stan Tai Jr., MD Work Phone: [facility] 06-26-2022 10:58-0500 Body weight 105.69 kg Stan Tai Jr., MD Work Phone: [facility] 06-26-2022 10:58-0500 Diastolic blood pressure 80 mm[Hg] Stan Tai Jr., MD Work Phone: [facility] 06-26-2022 10:58-0500 Systolic blood pressure 134 mm[Hg] Stan Tai Jr., MD Work Phone: [facility] 06-23-2022 08:30-0500 Diastolic blood pressure 70 mm[Hg] Nurse Saint Peter Work Phone: [facility] 06-23-2022 08:30-0500 Systolic blood pressure 128 mm[Hg] Nurse Saint Peter Work Phone: [facility] 06-11-2022 09:00-0500 Diastolic blood pressure 80 mm[Hg] Ryan Jerry [facility].DATA SYSTEMS MANAGER Work Phone: [facility] 06-11-2022 09:00-0500 Systolic blood pressure 146 mm[Hg] Ryan Jerry [facility].DATA SYSTEMS MANAGER Work Phone: [facility] 06-11-2022 08:27-0500 Body height 182.9 cm Ryan Jerry [facility].DATA SYSTEMS MANAGER Work Phone: [facility] 06-11-2022 08:27-0500 Body temperature 97.59 [degF] Ryan Jerry [facility].DATA SYSTEMS MANAGER Work Phone: [facility] 06-11-2022 08:27-0500 Body weight 105.96 kg Ryan Jerry [facility].DATA SYSTEMS MANAGER Work Phone: [facility] 06-11-2022 08:27-0500 Heart rate 58 /min Ryan Jerry [facility].DATA SYSTEMS MANAGER Work Phone: [facility] 06-11-2022 08:27-0500 Respiratory rate 18 /min Ryan Jerry [facility].DATA SYSTEMS MANAGER Work Phone: [facility] 06-11-2022 08:27-0500 SaO2% (BldA) [Mass fraction] 98 % Ryan Jerry [facility].DATA SYSTEMS MANAGER Work Phone: [facility] 06-03-2022 10:34-0500 Body height 182.9 cm Carlos Enrique Hughes MD Work Phone: [facility] 06-03-2022 10:34-0500 Body weight 105.23 kg Carlos Enrique Hughes MD Work Phone: [facility] 06-03-2022 10:34-0500 Diastolic blood pressure 70 mm[Hg] Carlos Enrique Hughes MD Work Phone: [facility] 06-03-2022 10:34-0500 Systolic blood pressure 130 mm[Hg] Carlos Enrique Hughes MD Work Phone: [facility] 06-02-2022 11:21-0500 Body height 182.9 cm Lorraine Queden DIRECTOR OF COMM[facility]ITY C[facility].DATA SYSTEMS MANAGER Work Phone: [facility] 06-02-2022 11:21-0500 Body temperature 97.7 [degF] Lorraine Queden DIRECTOR OF COMM[facility]ITY [facility].DATA SYSTEMS MANAGER Work Phone: [facility] 06-02-2022 11:21-0500 Body weight 105.23 kg Lorraine Queden DIRECT[facility] OF COMM[facility].DATA SYSTEMS MANAGER Work Phone: [facility] 06-02-2022 11:21-0500 Diastolic blood pressure 62 mm[Hg] Lorraine Queden DIRECT[facility] OF COMM[facility].DATA SYSTEMS MANAGER Work Phone: [facility] 06-02-2022 11:21-0500 Heart rate 60 /min Lorraine Queden DIRECTOR OF COMM[facility].DATA SYSTEMS MANAGER Work Phone: [facility] 06-02-2022 11:21-0500 SaO2% (BldA) [Mass fraction] 96 % Lorraine Queden DIRECT[facility] COMM[facility].DATA SYSTEMS MANAGER Work Phone: [facility] 06-02-2022 11:21-0500 Systolic blood pressure 126 mm[Hg] Lorraine Queden DIRECTOR OF COMM[facility].DATA SYSTEMS MANAGER Work Phone: [facility] 05-28-2022 08:11-0500 Diastolic blood pressure 78 mm[Hg] [facility] Work Phone: [facility] 05-28-2022 08:11-0500 Systolic blood pressure 138 mm[Hg] Nurse [facility] Work Phone: [facility] 05-22-2022 14:15-0500 Body height 182.9 cm Kyrie Pardo MD Work Phone: [facility] 05-22-2022 14:15-0500 Body weight 104.33 kg Kyrie Pardo MD Work Phone: [facility] 05-22-2022 14:15-0500 Respiratory rate 18 /min Kyrie Pardo MD Work Phone: [facility] 05-20-2022 14:21-0500 Body height 182.9 cm Lorraine Queden DIRECT[facility].DATA SYSTEMS MANAGER Work Phone: [facility] 05-20-2022 14:21-0500 Body temperature 98.2 [degF] Lorraine Queden DIRECT[facility] OF COMM[facility].DATA SYSTEMS MANAGER Work Phone: [facility] 05-20-2022 14:21-0500 Body weight 104.33 kg Lorraine Queden DIRECT[facility] OF COMM[facility].DATA SYSTEMS MANAGER Work Phone: [facility] 05-20-2022 14:21-0500 Diastolic blood pressure 76 mm[Hg] Lorraine Queden DIRECT[facility] OF COMM[facility].DATA SYSTEMS MANAGER Work Phone: [facility] 05-20-2022 14:21-0500 Heart rate 63 /min Lorraine Queden DIRECT[facility] OF COMM[facility].DATA SYSTEMS MANAGER Work Phone: [facility] 05-20-2022 14:21-0500 Respiratory rate 18 /min Lorraine Queden DIRECT[facility] OF COMM[facility].DATA SYSTEMS MANAGER Work Phone: [facility] 05-20-2022 14:21-0500 SaO2% (BldA) [Mass fraction] 96 % Lorraine Queden DIRECT[facility] OF COMM[facility].DATA SYSTEMS MANAGER Work Phone: [facility] 05-20-2022 14:21-0500 Systolic blood pressure 134 mm[Hg] Lorraine Queden DIRECTOR OF COMM[facility].DATA SYSTEMS MANAGER Work Phone: [facility] 05-14-2022 08:34-0500 Diastolic blood pressure 72 mm[Hg] Nurse [facility] Work Phone: [facility] 05-14-2022 08:34-0500 Systolic blood pressure 128 mm[Hg] Nurse [facility] Work Phone: [facility] 05-09-2022 08:33-0500 Diastolic blood pressure 72 mm[Hg] Nurse [facility] Work Phone: [facility] 05-09-2022 08:33-0500 Systolic blood pressure 128 mm[Hg] Nurse [facility] Work Phone: [facility] 04-07-2022 08:39-0500 Diastolic blood pressure 82 mm[Hg] Nurse [facility] Work Phone: [facility] 04-07-2022 08:39-0500 Systolic blood pressure 128 mm[Hg] Nurse [facility] Work Phone: [facility] 03-28-2022 09:44-0500 Diastolic blood pressure 80 mm[Hg] Nurse [facility] Work Phone: [facility] 03-28-2022 09:44-0500 Systolic blood pressure 132 mm[Hg] Nurse [facility] Work Phone: [facility] 11-10-2022 10:44-0500 Body height 182.9 cm Stan Tai Jr., MD Work Phone: [facility] 03-27-2022 10:44-0500 Body weight 102.06 kg Stan Tai Jr., MD Work Phone: [facility] 03-27-2022 10:44-0500 Diastolic blood pressure 92 mm[Hg] Stan Tai Jr., MD Work Phone: [facility] 03-27-2022 10:44-0500 Systolic blood pressure 146 mm[Hg] Stan Tai Jr., MD Work Phone: [facility] 03-17-2022 08:48-0400 Diastolic blood pressure 76 mm[Hg] Nurse [facility] Work Phone: [facility] 03-17-2022 08:48-0400 Systolic blood pressure 128 mm[Hg] Nurse [facility] Work Phone: [facility] 03-06-2022 08:22-0400 Diastolic blood pressure 80 mm[Hg] Nurse [facility] Work Phone: [facility] 03-06-2022 08:22-0400 Systolic blood pressure 142 mm[Hg] Nurse [facility] Work Phone: [facility] 02-26-2022 11:45-0400 Diastolic blood pressure 82 mm[Hg] Ryan Jerry DIRECTOR OF COMM[facility]ITY [facility].DATA SYSTEMS MANAGER Work Phone: [facility] 02-26-2022 11:45-0400 Systolic blood pressure 148 mm[Hg] Ryan Jerry DIRECT[facility] OF COMM[facility].DATA SYSTEMS MANAGER Work Phone: [facility] 02-26-2022 10:41-0400 Body height 182.9 cm Ryan Jerry DIRECT[facility] OF COMM[facility].DATA SYSTEMS MANAGER Work Phone: [facility] 02-26-2022 10:41-0400 Body temperature 98.2 [degF] Ryan Jerry DIRECT[facility] OF COMM[facility].DATA SYSTEMS MANAGER Work Phone: [facility] 02-26-2022 10:41-0400 Body weight 104.24 kg Ryan Jerry DIRECT[facility] OF COMM[facility].DATA SYSTEMS MANAGER Work Phone: [facility] 02-26-2022 10:41-0400 Heart rate 62 /min Ryan Edwards DIRECTOR OF COMM[facility].DATA SYSTEMS MANAGER Work Phone: [facility] 02-26-2022 10:41-0400 Respiratory rate 18 /min Ryan Edwards DIRECT[facility] OF COMM[facility].DATA SYSTEMS MANAGER Work Phone: [facility] 02-26-2022 10:41-0400 SaO2% (BldA) [Mass fraction] 97 % Ryan Edwards DIRECT[facility] OF COMM[facility].DATA SYSTEMS MANAGER Work Phone: [facility] Encounters Encounter Date Encounter Type Care Provider Facility Start: 06-01-2023 End: 06-01-2023 ambulatory RYAN EDWARDS Facility:[facility] Start: 05-29-2023 End: 05-29-2023 ambulatory RYAN EDWARDS Facility:[facility] Start: 05-28-2023 End: 05-28-2023 ambulatory RYAN EDWARDS Facility:[facility] Start: 05-26-2023 End: 05-26-2023 ambulatory RYAN EDWARDS Facility:[facility] Start: 05-19-2023 End: 05-20-2023 ambulatory RYAN EDWARDS Facility:[facility] Start: 05-19-2023 End: 05-19-2023 ambulatory RYAN EDWARDS Facility:[facility] Start: 05-07-2023 End: 05-07-2023 ambulatory RYAN EDWARDS Facility:[facility] Start: 05-07-2023 End: 05-07-2023 Patient encounter procedure Ryan Edwards DIRECT[facility] OF COMM[facility].DATA SYSTEMS MANAGER Work Phone: [facility] Procedures Date Procedure Procedure Detail Performing Clinician Start: 05-07-2023 Prothrombin time You Edwards DIRECTOR OF COMM[facility]ITY [facility].DATA SYSTEMS MANAGER Work Phone: Start: 04-29-2023 Echocardiography YOU EDWARDS Start: 04-02-2023 Mri any jt lower ext rem w/o contrast matrl Carmine Reese DPNaresh Work Phone: Start: 03-11-2023 Prothrombin time Yousilvana Infante Jerry DIRECT[facility] OF COMM[facility] Work Phone: Start: 03-02-2023 Prothrombin time [facility] Pr ovider Start: 02-10-2023 Prothrombin time You Edwards DIRECT[facility] COMM[facility] Work Phone: Start: 01-26-2023 Prothrombin time [facility] Pr ovider Start: 01-26-2023 Lipid 1996 panel - S ciara or Plasma Ryan Edwards DIRECT[facility] COMM[facility] Work Phone: Start: 12-29-2022 Prothrombin time [facility] Start: 12-15-2022 Prothrombin time [facility] Start: 12-08-2022 Prothrombin time [facility]ider Start: 12-04-2022 Computerized ophthal simone imaging retina Ileana Posadas MD, PhD Work Phone: Start: 11-05-2022 INR in Platelet poor plasma by Coagulation assay [facility] Provider Start: 09-23-2022 Prothrombin time [facility] Start: 09-16-2022 Prothrombin time Yousilvana Infante Jerry [facility] Work Phone: Start: 08-04-2022 Prothrombin time [facility] Pr ovider Start: 07-21-2022 Prothrombin time [facility] Pr ovider Start: 07-15-2022 PROTHROMBIN TIME/PT [facility] Provider Start: 07-11-2022 Prothrombin time [facility] Pr ovider Start: 06-11-2022 Prothrombin time Yousilvana Infante Jerry [facility] Work Phone: Start: 05-28-2022 Prothrombin time [facility] Pr ovider Start: 05-22-2022 Radex elbow 2 views Pat gi Pardo MD Work Phone: Start: 05-07-2022 End: 05-07-2022 Prothrombin time [facility] Provider Start: 03-27-2022 Urnls dip stick/tabl et rgnt auto w/o microscopy Stan Tai MD Work Phone: Start: 03-10-2022 Prothrombin time [facility] Pr [facility]ider Start: 03-06-2022 Prothrombin time [facility] Pr ovider Start: 02-26-2022 Prothrombin time You Edwards APRN.BARBIE Work Phone: Start: 06-09-2016 Colonoscopy Ryan solomon APRN.BARBIE Work Phone: Plan of Treatment Date Care Activity Detail Author Start: 06-09-2032 Urine microalbumin profile [facility] Start: 01-27-2028 Lipid 1996 panel - S ciara or Plasma Lipid Screening [facility] Start: 01-27-2028 Lipid panel Lipid Screening [facility] Start: 01-27-2028 LIPID SCREEN LIPID SCREEN [facility] Start: 12-31-2027 PROSTATE CANCER SCRE ENING DISCUSSION PROSTATE CANCER SCREENING DISCUSSION [facility] Start: 12-31-2027 Prostate specific an tigen measurement Prostate Cancer Screening Discussion [facility] Start: 09-19-2027 LIPID SCREEN LIPID SCREEN [facility] Start: 06-09-2026 Colonoscopy COLONOSCOPY [facility] Start: 06-09-2026 COLORECTAL CANCER SCREENING COLORECTAL CANCER SCREENING [facility] Start: 06-09-2026 Screening for malign ant neoplasm of colon [facility] Start: 04-30-2026 [facility] Start: 04-28-2026 [facility] Scre[facility] Start: 04-22-2026 Diabetes Screening Diabetes Screenla g [facility] Start: 09-18-2025 DIABETES SCREEN DIABETES SCREEN [facility] Start: 09-18-2025 Diabetes Screening Diabetes Screenin g [facility] Start: 06-11-2025 DIABETES SCREEN DIABETES SCREEN [facility] Start: 03-11-2024 Pneumococcal Vaccine : 65+ (2 - PCV) Pneumococcal Vaccine: 65+ (2 - PCV) [facility] Immunizations Immunization Date Immunization Notes Care Provider Daquan lua 02-01-2023 zoster vaccine segundo Cordova MA [facility] 09-01-2022 zoster vaccine, live Albina Edwards APRN.CNP Work Phone: [facility] 06-09-2022 tetanus toxoid, redu norma diphtheria toxoid, and acellular pertussis vaccine, adsorbed Ryan Edwards APRN.CNP Work Phone: [facility] 02-26-2022 zoster RZV vaccine (SHINGRIX) 50 mcg/0.5 mL injection Ryan Edwards APRN.DATA SYSTEMS MANAGER Work Phone: [facility] Work Phone: Payers Date Payer Category Payer Unknown [employer] SUPPLE[employer] [id number] 2021-Present [phone] [id number] [employer] [place] [address] Indemnity [id number] 2020 Medicare [id number] 2020 Medicare MEDICARE MEDICAR E A AND B [id number] 2020-Present [phone] [place] [address] Medicare [id number] 2020 Unknown [id number] 1955 Unknown [id number] 1955 Unknown [id number] Social History Date Type Detail Facility Start: 02-26-2022 End: 12-30-2022 Tobacco smoking status CTIS Never smoked tobacco [facility] Start: 02-26-2022 End: 12-30-2022 Tobacco use and exposure Smokeless tobacco non-user [facility] Start: 02-26-2022 End: 05-07-2023 Alcohol intake Current drinker of alcohol (finding) [facility] Start: 1955 Sex Assigned At Not on file C [facility] Start: 02-16-2022 End: 04-07-2022 Exposure to SARS-CoV-2 (event) Not sure [facility] Start: 09-18-2022 End: 10-27-2022 History of Social function [facility] Start: 09-18-2022 End: 10-27-2022 Tobacco use panel [facility] Adult Depression Screening Assessment 0 [facility] (I/We) worried wheth er (my/our) food would run out before (I/we) got money to buy more. Never true [facility] In the past 12 month s, was there a time when you were not able to pay the mortgage or rent on time? No [facility] Start: 04-22-2023 Alcohol Comment couple times a week [facility] NEGATED: Highlighted rowStart: NINF History of tobacco use Passive smoker [facility] Medical Equipment Procedure Code Equipment Code Equipment Origin al Text Equipment Identifier Dates Mesh Parietex 6. 6cm Small Collagen Surgical Patch [facility] - [id number] Start: 10-14-2022 Clinical Notes 02-26-2022 to 06-02-2023 Ryan Edwards, DIRECTOR OF COMMUNITY CENTER.DATA SYSTEMS MANAGER - 05/07/2023 8:20 AM Katya Lan RN - 05/05/2023 12:27 PM Katya Lan RN - 05/01/2023 12:53 PM Ryan Jordan DIRECTOR OF COMMUNITY C[facility].DATA SYSTEMS MANAGER - 04/16/2023 11:58 AM EST Note Date & Type Note Facility 06-02-2023 Note [facility] 06-01-2023 Note [facility] 05-29-2023 Note [facility] 05-28-2023 Note [facility] 05-28-2023 Note [facility] 05-26-2023 Note HNO ID: [id number] Author: RYAN EDWARDS APRN.DATA SYSTEMS MANAGER Service: ? Author Type: Nurse Practitioner Type: Progress Notes Filed: 05/26/2023 12:34 Note Text: Pt also complained of nausea anytime he eats anything [facility] 05-26-2023 Note [facility] 05-25-2023 Note [facility] [place] 05-19-2023 Note [facility] 05-07-2023 Note [facility] [place] 05-07-2023 History of Presen t illness Narrative Transitional Care Management TCM Eligibility Documentation Program: Transitional Care Management Status: Enrolled Effective Dates: 05/01/2023 - present Responsible Staff: Katya Ortiz RN Discharge date: 04/30/2023 (Program start) Date of initial contact: 05/01/2023 Initial contact Target status: Successful; Contact made within 2 business days post-discharge Summary Discharged from: [facility] Admit Date: 04/22/23 D/C 04/30/23 Admitted for: Cellulitis of left Upper extremity Carlotta Nieto MA Provider Documentation Ru Workman is a 68 year old male here today for a follow up to recent hospitalization. I have reviewed the patient's hospital course including diagnostic testing performed during this hospitalization, their discharge medications, and my assessment and plan with the patient and any family members present at today's visit. HPI: Patient went to ED on 04/22/23 for weakness and elbow pain. PMH SHANNON, afib, mallignant melanoma. He was seen and treated with antibiotics for left elbow bursitis. He reported it improved but never fully resolved. He also has ruptured achilles tendon and was to have surgery with Dr Woodruff on 04/24/23. He also reported scrapping his leg on his metal walker. He noticed increased swelling on his left elbow over the last 2-3 days. Failed outpatient treatment and was admitted for celluliits of left upper extremity. Per discharge note: Extensive cellulitis found with significant edema. 3 days of IV abx until some improvement occurred. Orthopedic surgery was consulted and evaluated the patient with no discernible areas for drainage. He was narrowed down from Silverman Zosyn to Unasyn and cellulitis improved. PT was slated for d/c but pt went into a.flutter with RVR (know dx follows with Cards in [place]) that was difficult to control. He required multiple IV pushes and titration of his PO meds without success. ECHO ordered and was assessed by medical superintendent who found that revealed normal left ventricular function. His atria are normal size. He does have moderate left ventricular hypertrophy. His Lexiscan Myoview study revealed no ischemia. I do have a low index of suspicion that he has any significant areas of myocardium at risk. He did convert spontaneously to sinus rhythm. He should be continued on Cardizem and Coumadin. Mr. Julian should follow-up with outpatient cardiology near where he lives and be considered for antiarrhythmic therapy versus atrial fibrillation ablation. I do think he would be a very good candidate for atrial fibrillation ablation. He was discharged on augmentin, diltiazem, probiotic x 14 days, imodium, metoprolol and potassium. He reports no swelling in elbow. He reports slight pain in joint 2/10 at most. Slight discomfort but no real pain Denies fever, chills, DOSHI. Continued right heel pain, wearing boot and wrapping. Echo 04/29/23 CONCLUSIONS: 1. SPECT Perfusion Study: Normal. 2. There is no scintigraphic evidence for inducible ischemia. 3. No evidence of scarred myocardium. 4. Left ventricle is normal in size. The left ventricle systolic function is normal. 5. Right ventricle is normal in size. The right ventricle systolic function is normal. 6. This is a low risk scan. Gated Stress FBP Gated Rest FBP LVEF % 68 61 He is rescheduled for achilles heel surgery with DR Woodruff on 05/27/22. He has appt with vascular on 05/28/22 which has been cancelled and he is going to reschedule. For venous insuff right leg. Slight swelling at end of day but in am no swelling. He is wraping foot daily. ALLERGIES No Known Allergies Current Outpatient Medications Medication Sig Dispense Refill dilTIAZem CD (CARDIZEM CD, CARTIA XT) 240 mg 24 hr capsule Take 1 capsule by mouth once daily. 30 capsule 0 amoxicillin-clavulanate potassium (AUGMENTIN) 875-125 mg per tablet Take 1 tablet by mouth two times a day for 10 days. 20 tablet 0 lactobacillus rhamnosus (CULTURELLE) 10 billion cell capsule Take 2 capsules by mouth two times a day for 14 days. 56 capsule 0 loperamide (IMODIUM) 2 mg cap(s) Take 1 capsule by mouth three times a day as needed for diarrhea for up to 7 days. 21 capsule 0 metoprolol succinate ER (TOPROL XL) 50 mg 24 hr tablet Take 1 tablet by mouth two times a day. 60 tablet 0 warfarin (COUMADIN) 2 mg tablet Take 1 tablet by mouth daily as directed. 90 tablet 3 sildenafil (VIAGRA) 50 mg tablet TAKE 1 TABLET BY MOUTH NEEDED 30 - 60 MINUTES BEFORE SEXUAL INTERCOURSE 15 tablet 2 warfarin (COUMADIN) 4 mg tablet TAKE 2 TABLETS 1 TIME DAILY INSTRUCTED 180 tablet 1 omega 4-lyk-tud-fish oil (FISH OIL) 100-160-1,000 mg cap Take by mouth. VIT B COMPLEX 100 COMBO NO.2 ORAL Take by mouth. vitamin D3-vit K1-vit MK4-MK7 50-500-1,500 mcg cap Take by mouth. No current facility-administered medications for this visit. ACTIVE PROBLEM LIST Enthesopathy of Knee Personal History of Malignant Melanoma of Skin Follow-Up Examination Following Surgery A-Fib (Hcc) Elevated Prostate Specific Antigen (Psa) Preop Examination Shannon (Obstructive Sleep Apnea) Elevated Bp Without Diagnosis of Hypertension Septic Bursitis of Elbow, Left Cellulitis of Left Upper Extremity Chest Discomfort Localized Edema Dyspnea On Exertion PAST MEDICAL HISTORY Diagnosis Date A-fib (HCC) SHANNON (obstructive sleep apnea) Personal history of malignant melanoma of skin PAST SURGICAL HISTORY Procedure Laterality Date PAST SURGICAL HISTORY OF Open knee reconstruction: 5 knee surgeries on right, 2 on left PAST SURGICAL HISTORY OF arthroscopy left shoulder PAST SURGICAL HISTORY OF ORIF left wrist with screws. PAST SURGICAL HISTORY OF excision ganglion cysts PAST SURGICAL HISTORY OF nose repair PAST SURGICAL HISTORY OF Bilateral retinal detachment repair REPAIR INCISIONAL HERNIA,REDUCIBLE N/A 10/14/2022 Umbilical hernia repair TONSILLECTOMY & ADENOIDECTOMY <AGE 12 Tonsil/adenoidectomy VASECTOMY UNI/BI SPX W/POSTOP SEMEN EXAMS XCAPSL CTRC RMVL INSJ IO LENS PROSTH W/O ECP Bilateral Social History Tobacco Use Smoking status: Never Passive exposure: Never Smokeless tobacco: Never Vaping Use Vaping Use: Never used Substance Use Topics Alcohol use: Yes Comment: couple times a week Drug use: Never Family History Problem Relation Age of Onset Diabetes Father Heart disease Father Accidental Mother fire Hypertension Sister No Ocular Disease Other Review of Systems Constitutional: Negative for chills and fever. Respiratory: Negative for cough, shortness of breath and wheezing. Cardiovascular: Positive for leg swelling. Negative for chest pain, palpitations and orthopnea. Left leg Musculoskeletal: Positive for joint pain. See HPI Skin: Negative for itching and rash. See HPI Neurological: Negative for dizziness and headaches. Physical Exam Vitals and nursing note reviewed. Constitutional: General: He is not in acute distress. Appearance: Normal appearance. He is obese. He is not ill-appearing. Cardiovascular: Rate and Rhythm: Normal rate and regular rhythm. Pulses: Normal pulses. Heart sounds: Normal heart sounds. No murmur heard. Pulmonary: Effort: Pulmonary effort is normal. No respiratory distress. Breath sounds: Normal breath sounds. No wheezing, rhonchi or rales. Musculoskeletal: Right elbow: Normal. Left elbow: Swelling present. Normal range of motion. No tenderness. Comments: Mild increase warmth when compared to right, slight increase in color pink left elbow when compared to right. Skin: General: Skin is warm and dry. Neurological: Mental Status: He is alert and oriented to person, place, and time. Psychiatric: Mood and Affect: Mood normal. Behavior: Behavior normal. Thought Content: Thought content normal. Judgment: Judgment normal. Component Latest Ref Rng & Units 04/27/2023 04/28/2023 04/28/2023 04/28/2023 04/29/2023 04/30/2023 6:16 AM 11:04 AM 6:48 PM WBC 3.70 - 11.00 k/uL 10.57 RBC 4.20 - 6.00 m/uL 4.22 Hemoglobin 13.0 - 17.0 g/dL 12.8 (L) Hematocrit 39.0 - 51.0 % 39.1 MCV 80.0 - 100.0 fL 92.7 MCH 26.0 - 34.0 pg 30.3 MCHC 30.5 - 36.0 g/dL 32.7 RDW-CV 11.5 - 15.0 % 14.4 Platelet Count 150 - 400 k/uL 222 MPV 9.0 - 12.7 fL 10.0 NRBC /100 WBC 0.0 Absolute nRBC <0.01 k/uL <0.01 Neut% % 85.0 Abs Neut (ANC) 1.45 - 7.50 k/uL 8.98 (H) Lymph% % 10.0 Abs Lymph 1.00 - 4.00 k/uL 1.06 [place]% % 2.0 Abs [place] <0.87 k/uL 0.21 Eosin% % 1.0 Abs Eosin <0.46 k/uL 0.11 Baso% % 0.0 Abs Baso <0.11 k/uL 0.00 [place]% % 2.0 Platelet Estimate Adequate Red Cell Morph Reviewed: unremarkable DTYPE Manual Glucose 74 - 99 mg/dL 125 (H) 129 (H) 119 (H) 120 (H) BUN 9 - 24 mg/dL 20 17 21 23 Creatinine 0.73 - 1.22 mg/dL 1.13 1.00 1.09 1.12 Sodium 136 - 144 mmol/L 141 140 140 141 Potassium 3.7 - 5.1 mmol/L 3.6 (L) 3.7 3.9 4.0 Chloride 97 - 105 mmol/L 109 (H) 107 (H) 109 (H) 109 (H) CO2 22 - 30 mmol/L 17 (L) 18 (L) 20 (L) 21 (L) Anion Gap 9 - 18 mmol/L 15 15 11 11 Calcium 8.5 - 10.2 mg/dL 9.1 9.4 9.4 9.3 eGFR >=60 mL/min/1.73m 71 82 74 72 PT Sec 9.7 - 13.0 sec 37.9 (H) 12.8 12.9 13.7 (H) PT INR 0.9 - 1.3 4.0 (H) 1.2 1.2 1.3 Magnesium 1.7 - 2.3 mg/dL 2.0 1.9 2.0 2.1 C. difficile PCR Negative for C. difficile toxin by PCR Negative for C. difficile toxin by PCR Lactate 0.5 - 2.2 mmol/L 1.0 ASSESSMENT/PLAN: 1. Cellulitis of left upper extremity - ICD9: 682.3, ICD10: L03.114 (primary diagnosis) - Continue treatment with Augmentin every 12 hours x 4 additional days for total of 14. Instructed to continue probiotic. Reviewed C diff risk. - No lymphangetic streaking, this was defined for patient to watch for and to seek medical care immediately if appears - Follow up for recheck in 1-2 wks. - AMOXICILLIN 875 MG-POTASSIUM CLAVULANATE 125 MG TABLET 2. Septic bursitis of elbow, left - ICD9: 726.33, 041.9, ICD10: M71.122 - see above - AMOXICILLIN 875 MG-POTASSIUM CLAVULANATE 125 MG TABLET 3. Atrial fibrillation, unspecified type (HCC) - ICD9: 427.31, ICD10: I48.91 - Chronic, stable pt asymptomatic - follow up with Dr Sparrow for management and surgical clearance - continue current medications. Ryan Edwards APRN.DATA SYSTEMS MANAGER May 06, 2023 1:38 PM I spent a total of 65 minutes on the date of the service which included preparing to see the patient, [id number] patient care, completing clinical documentation, obtaining and/or reviewing separately obtained history, performing a medically appropriate examination, counseling and educating the patient/family/caregiver, and ordering medications, tests, or procedures. documented in this encounter [facility] 05-05-2023 Note [facility] 05-05-2023 History of Presen t illness Narrative TRANSITIONAL CARE MANAGEMENT (TCM) FOLLOW-UP NOTE Provider Action/FYI: [facility] f/u 05/07 at Ryan Jerry at 8:20am Patient states right leg is much less swollen and red. He is wrapping daily and keeping elevated. [facility] continues to see patient. Patient identified by name and date of : YES Spoke to: patient Diagnosis: N/A Summary: Patient states he is doing well. Redness and edema in right leg are resolving, patient is wrapping leg daily and elevating. No c/o fever/chills. Will take all d/c papers and meds to appt w/him to have PCP review 05/07. Health leads screening tool questions performed? N/A N/A Chute Loader plan for next outreach: Will follow-up in one week Signature: Katya Ortiz RN May 05, 2023 documented in this encounter [facility] 05-01-2023 Note [facility] 05-01-2023 History of Presen t illness Narrative TRANSITIONAL CARE MANAGEMENT (TCM) COMMUNITY MONITORING PROGRAM - JON Provider Action/FYI: [facility] d/c 04/30 Cellulitis left elbow [facility]/u 05/07 at 8:20am w/Ryan Edwards New Medications: Augmentin 875-125mg twice daily for 10 days Culturelle 2 capsules twice daily for 14 days Imodium 2mg three x/day prn Potassium 20meq Two tablets twice daily one time Metoprolol Succinate 50mg twice daily Cardizem CD 240mg once daily Patient wants PCP to look at new/changed medications and make sure she is agreeable with the medications and dose changes. He is especially questioning the change to his Cardizem and the Metoprolol States Left elbow swelling and redness has gone done significantly but left leg edema is significant. Instructed to keep elevated. states [facility] nurse is currently present and starting care. SUMMARY: Pt discharged from [facility] on 04/30/23. Admitted for: Cellulitis left elbow Patient seen Inpatient CAM Visit? No. Patient seen ICARE Program? N/A. Contact made with patient: Yes Hi my name is Katya Ortiz RN and I am calling from the [facility] on behalf of your PCP, Ryan Edwards APRN.DATA SYSTEMS MANAGER I understand you were recently in the hospital so I am calling to check in with you to ensure you are feeling well now that you re home. Do you mind if I ask you a few questions related to your hospital stay and well-being Yes Contact with patient post discharge, spoke to patient and spouse. Patient identified by name and . Do you feel your health is BETTER, WORSE, or the SAME since leaving the hospital? Better ACTION TAKEN: Patient indicated symptoms are better or same, no action required. Continue outreach. N/A MEDICATIONS: Many patients have questions or concerns about their medications once they are home. Do you have any questions about taking your medications or which medication you should be on? Yes Do you need any medication refills at this time, including any of the medications you might take only when needed? No ACTION TAKEN: Patient has questions about medications - Inform PCP care team or pharmacist - they will be in contact to discuss further. Routed to Primary Care Provider or TCM Pharmacist, indicated in the FYI box. For RNs or Pharmacy completing outreach ONLY, was a medication review completed? Patient has questions about his new medications and changed medications. Wants PCP to review. SOCIAL: We would like to make sure you have what you need so that your basics needs are met - including your personal safety. HEALTH LEADS SCREENING TOOL QUESTIONS: Do you often feel you lack companionship? No Do you ever need help reading or understanding hospital materials? No In the last 12 months, have you changed how you take medications to save money? No In the past 12 months, has lack of transportation kept you from medical appointments, work or getting things you need like food, or supplies? No In the last 12 months, did you ever eat less than you felt you should because there wasn't enough money for food? No During the winter, do you anticipate having a problem paying your heating bill? No In the next 2 months, are you worried you might not have stable housing? No Would you like to speak with a social work steam flattener to help give you support for any of these needs? No It can be normal to feel anxious or down during a time like this. Would you like to talk to a mental health professional about how you have been feeling? No ACTION TAKEN: No action taken DISCHARGE INTRUCTIONS: Your discharge instructions / After Visit Summary (AVS) are important in guiding you through the recovery process. Do you have any questions related to your discharge instructions? No Do you have all the necessary equipment and supplies at home? Yes ACTION TAKEN: No action required WRAP AROUND SERVICES: Home Healthcare Referral Patient educated on importance of primary care provider follow up visit as well as specialty provider follow up visits as indicated. Inform the patient that if they have any questions or concerns prior to that appointment, to call their Primary Care Provider 's office right away. Primary care provider first education provided. I would like to help you schedule a hospital follow-up virtual or telephone visit with your PCP. ACTION TAKEN: [facility] Primary Care Provider Visit Scheduled: Yes - Appt date: 05/07 at 8:20am with ryan Edwards Your doctor would like us to remind you of the recommendations regarding the coronavirus (Covid19) outbreak: Avoid public places as much as possible. Avoid close contact (within 6 feet) with others you don't live with, especially if they are sick. Stay home if you are sick. Wash your hands regularly for at least 20 seconds with soap and water. Wear a cloth mask in public places to help reduce community spread. Do not go to your Doctor's office unless instructed to do so. For any non-emergency symptoms, call your Doctor's office to get instructions on how to manage (we might recommend a telephone or virtual visit). For emergency symptoms, proceed to Emergency Department as usual but inform them of cough and fever symptoms ROMELIA if present (or call on the way if possible). [facility] Home Visit Referral Source of Stratification: [facility] Hospital Admission Status: Discharged Readmission Risk Score: 18 ANTHONY Score: 2 Patient meets program referral criteria: No Patient does not qualify for High Risk TCM Home Visit program due to: Discharged home, does not meet program criteria Katya Ortiz RN May 01, 2023 1:34 PM documented in this encounter [facility] 04-30-2023 Note [facility] 04-29-2023 Note [facility] 04-29-2023 Note [facility] 04-29-2023 Note [facility] 04-28-2023 Note [facility] 04-28-2023 Miscellaneous Notes Pt is in hospital. We can remind him once he is discharged. This can wait to be completed ----- Message from Carlotta Nieto MA sent at 01/26/2023 11:48 AM EDT ----- Recheck Lipid panel documented in this encounter [facility] 04-27-2023 Note [facility] 04-27-2023 Note [facility] 04-26-2023 Note [facility] 04-26-2023 Note [facility] 04-25-2023 Note [facility] 04-25-2023 Note [facility] 04-24-2023 Note [facility] 04-24-2023 Note [facility] 04-23-2023 Note [facility] 04-23-2023 Note [facility] 04-16-2023 Note [facility] 04-16-2023 History of Presen t illness Narrative This note was created using NoteWriter. Subjective Ru William Jacinta is a 68 year old male here today for follow up after [facility] visit for right lower leg pain on 03/28/23. PMH afib, PSA. Patient denies changes in health since last office visit. Reports feeling well. Denies concerns or complaints today. I reviewed his past medical, surgical, social, and family histories today and updated chart. Allergies, chronic medications, and supplements were also reviewed and his list is now up to date. Per ER report: Symptoms started earlier today. He has been dealing with a tight Achilles tendon and some pain in his joint, but slipped today and felt a pop in the back of his leg. He has difficulty plantar flexing the foot. He has a rupture of the Achilles tendon on the opposite side several years ago, which was repaired in [place]. He states that this feels similar. No head trauma. No loss of consciousness. No other acute sick symptoms. He is scheduled for surgyer 04/24/[address] Sparrow already gave cardiac clearance. He is to hold his coumadin x 4 days prior to surgery. Afib: Dx 2 yrs ago. Started on coumadin about a year ago. He is taking coumadin 8 mg daily.Denies any symptoms related to afib. He did go to [facility] for surgical clearance for secondary to afib. We will fax clearance to them. He reports he has stress test and ECG scheduled on Thursday. HPI: Type of Surgery: Open repair achilles tendon Date of Surgery: 04/24/23 Surgeon: Dr Woodruff Place of Surgery: [facility] Functional Status of patient: Able to perform activities of daily living: Yes Able to walk up a flight of stairs: Yes Able to do heavy house work: Yes Associated Conditions: Does the patient have diabetes:No Does the patient have lung problems: No Does the patient have heart disease: No Has there been any problems with anesthesia in the past? No Is there any family history of allergic reactions to anesthesia in the past? No ALLERGIES No Known Allergies Current Outpatient Medications Medication Sig Dispense Refill sildenafil (VIAGRA) 50 mg tablet TAKE 1 TABLET BY MOUTH NEEDED 30 - 60 MINUTES BEFORE SEXUAL INTERCOURSE 15 tablet 2 warfarin (COUMADIN) 4 mg tablet TAKE 2 TABLETS 1 TIME DAILY INSTRUCTED 180 tablet 1 finasteride (PROSCAR) 5 mg tablet TAKE 1 TABLET BY MOUTH EVERY DAY 30 tablet 5 dilTIAZem (CARDIZEM) 120 mg tablet Take 1 tablet by mouth once daily. 90 tablet 1 omega 1-xyo-hvv-fish oil (FISH OIL) 100-160-1,000 mg cap Take by mouth. VIT B COMPLEX 100 COMBO NO.2 ORAL Take by mouth. vitamin D3-vit K1-vit MK4-MK7 50-500-1,500 mcg cap Take by mouth. zoster RZV vaccine (SHINGRIX) 50 mcg/0.5 mL injection Repeat 2nd dose in 2-6 months. 1 Each 1 No current facility-administered medications for this visit. ACTIVE PROBLEM LIST Enthesopathy of Knee Personal History of Malignant Melanoma of Skin Follow-Up Examination Following Surgery A-Fib (Hcc) Elevated Prostate Specific Antigen (Psa) PAST MEDICAL HISTORY Diagnosis Date A-fib (HCC) Personal history of malignant melanoma of skin PAST SURGICAL HISTORY Procedure Laterality Date PAST SURGICAL HISTORY OF Open knee reconstruction: 5 knee surgeries on right, 2 on left PAST SURGICAL HISTORY OF arthroscopy left shoulder PAST SURGICAL HISTORY OF ORIF left wrist with screws. PAST SURGICAL HISTORY OF excision ganglion cysts PAST SURGICAL HISTORY OF nose repair PAST SURGICAL HISTORY OF Bilateral retinal detachment repair REPAIR INCISIONAL HERNIA,REDUCIBLE N/A 10/14/2022 Umbilical hernia repair TONSILLECTOMY & ADENOIDECTOMY <AGE 12 Tonsil/adenoidectomy VASECTOMY UNI/BI SPX W/POSTOP SEMEN EXAMS XCAPSL CTRC RMVL INSJ IO LENS PROSTH W/O ECP Bilateral Social History Tobacco Use Smoking status: Never Passive exposure: Never Smokeless tobacco: Never Vaping Use Vaping Use: Never used Substance Use Topics Alcohol use: Yes Comment: 1-2 drinks daily Drug use: Never Family History Problem Relation Age of Onset Diabetes Father Heart disease Father Accidental Mother fire Hypertension Sister No Ocular Disease Other . Review of Systems Constitutional: Negative for activity change, appetite change, chills, diaphoresis, fatigue, fever and unexpected weight change. HENT: Negative. Eyes: Negative for visual disturbance. Respiratory: Negative for cough, choking, chest tightness, shortness of breath and wheezing. Cardiovascular: Negative for chest pain, palpitations and leg swelling. Gastrointestinal: Negative for abdominal pain, constipation and diarrhea. Endocrine: Negative. Genitourinary: Negative. Negative for difficulty urinating. Musculoskeletal: Positive for arthralgias and gait problem. See hpi, right ankle lower leg pain Left elbow pain and swelling Skin: Negative. Neurological: Negative for dizziness, tremors, light-headedness, numbness and headaches. Psychiatric/Behavioral: Negative for sleep disturbance. The patient is not nervous/anxious. Objective BP 122/70 (BP Site: Left Arm, BP Position: Sitting, BP Cuff Size: Regular Adult) Pulse 67 Temp 36.4 C (97.6 F) (Oral) Resp 18 SpO2 97% Physical Exam Vitals and nursing note reviewed. Constitutional: General: He is not in acute distress. Appearance: Normal appearance. He is not ill-appearing or diaphoretic. HENT: Head: Normocephalic and atraumatic. Right Ear: External ear normal. Left Ear: External ear normal. Nose: Nose normal. No congestion or rhinorrhea. Mouth/Throat: Pharynx: No oropharyngeal exudate. Eyes: General: Lids are normal. No scleral icterus. Right eye: No discharge. Left eye: No discharge. Conjunctiva/sclera: Conjunctivae normal. Pupils: Pupils are equal, round, and reactive to light. Neck: Vascular: Normal carotid pulses. No carotid bruit. Cardiovascular: Rate and Rhythm: Normal rate and regular rhythm. Pulses: Normal pulses. Heart sounds: Normal heart sounds, S1 normal and S2 normal. No murmur heard. No friction rub. No gallop. Pulmonary: Effort: Pulmonary effort is normal. No accessory muscle usage or respiratory distress. Breath sounds: Normal breath sounds. No decreased breath sounds, wheezing, rhonchi or rales. Chest: Chest wall: No tenderness. Abdominal: General: Bowel sounds are normal. There is no distension. Palpations: Abdomen is soft. Tenderness: There is no abdominal tenderness. Musculoskeletal: General: No tenderness. Normal range of motion. Right elbow: Normal. Left elbow: Swelling present. Normal range of motion. No tenderness. Cervical back: Normal range of motion and neck supple. Right lower leg: No edema. Left lower leg: No edema. Comments: No erythema or increase warmth left elbow Skin: General: Skin is warm and dry. Coloration: Skin is not pale. Findings: No erythema or rash. Nails: There is no clubbing. Neurological: General: No focal deficit present. Mental Status: He is alert and oriented to person, place, and time. Motor: No abnormal muscle tone. Coordination: Coordination normal. Deep Tendon Reflexes: Reflexes are normal and symmetric. Psychiatric: Attention and Perception: Attention and perception normal. Mood and Affect: Mood normal. Speech: Speech normal. Behavior: Behavior normal. Behavior is cooperative. Thought Content: Thought content normal. Cognition and Memory: Cognition and memory normal. Judgment: Judgment normal. ASSESSMENT/PLAN: 1. Preoperative general physical examination - ICD9: V72.83, ICD10: Z01.818 (primary diagnosis) - Unremarkable exam today. - pt is optimized for surgery 2. Acute right ankle pain - ICD9: 719.47, 338.19, ICD10: M25.571 - acute right achilles injury. Recommend follow up as scheduled for surgical epair. 3. Injury of right Achilles tendon, subsequent encounter - ICD9: V58.89, 959.7, ICD10: S86.001D - see above 4. Olecranon bursitis, left elbow - ICD9: 726.33, ICD10: M70.22 - acute, recommend follow up with ortho. - CONSULT TO ORTHOPAEDICS Ryan Edwards APRN.DATA SYSTEMS MANAGER documented in this encounter [facility] 04-15-2023 Note [facility] 04-15-2023 History of Presen t illness Narrative CC: Achilles tendon injury HPI: This 68 year old male with PMH indicated below presents for follow up of achilles tendon rupture concern. Patient states the injury occurred on 03/28/23 when he slipped and felt a pop in the back of his leg with immediate pain. He had felt prodromal symptoms for approximately 1 month prior to injury. He has been NWB in plantarflexed cast. He is on Coumadin normally for AFIB. He denies any pain at this time and denies any calf pain, SOB. PAST MEDICAL HISTORY Diagnosis Date A-fib (HCC) Personal history of malignant melanoma of skin Current Outpatient Medications Medication Sig Dispense Refill sildenafil (VIAGRA) 50 mg tablet TAKE 1 TABLET BY MOUTH NEEDED 30 - 60 MINUTES BEFORE SEXUAL INTERCOURSE 15 tablet 2 warfarin (COUMADIN) 4 mg tablet TAKE 2 TABLETS 1 TIME DAILY INSTRUCTED 180 tablet 1 finasteride (PROSCAR) 5 mg tablet TAKE 1 TABLET BY MOUTH EVERY DAY 30 tablet 5 dilTIAZem (CARDIZEM) 120 mg tablet Take 1 tablet by mouth once daily. 90 tablet 1 omega 8-zee-wwo-fish oil (FISH OIL) 100-160-1,000 mg cap Take by mouth. VIT B COMPLEX 100 COMBO NO.2 ORAL Take by mouth. vitamin D3-vit K1-vit MK4-MK7 50-500-1,500 mcg cap Take by mouth. zoster RZV vaccine (SHINGRIX) 50 mcg/0.5 mL injection Repeat 2nd dose in 2-6 months. 1 Each 1 No current facility-administered medications for this visit. ALLERGIES No Known Allergies PAST SURGICAL HISTORY Procedure Laterality Date PAST SURGICAL HISTORY OF Open knee reconstruction: 5 knee surgeries on right, 2 on left PAST SURGICAL HISTORY OF arthroscopy left shoulder PAST SURGICAL HISTORY OF ORIF left wrist with screws. PAST SURGICAL HISTORY OF excision ganglion cysts PAST SURGICAL HISTORY OF nose repair PAST SURGICAL HISTORY OF Bilateral retinal detachment repair REPAIR INCISIONAL HERNIA,REDUCIBLE N/A 10/14/2022 Umbilical hernia repair TONSILLECTOMY & ADENOIDECTOMY <AGE 12 Tonsil/adenoidectomy VASECTOMY UNI/BI SPX W/POSTOP SEMEN EXAMS XCAPSL CTRC RMVL INSJ IO LENS PROSTH W/O ECP Bilateral FAMILY HISTORY Problem Relation Age of Onset Diabetes Father Heart disease Father Accidental Mother fire Hypertension Sister No Ocular Disease Other Social History Tobacco Use Smoking status: Never Passive exposure: Never Smokeless tobacco: Never Vaping Use Vaping Use: Never used Substance Use Topics Alcohol use: Yes Comment: 1-2 drinks daily Drug use: Never REVIEW OF SYSTEMS See MA note Physical Examination: On General Observation: Patient is a pleasant, cooperative, well developed 68 year old adult male. The patient is alert and oriented to time, place and person. Patient has normal affect and mood. Vascular: DP and PT pulses are palpable. CFT less than 3 seconds to all digits bilateral. Skin temperature is warm to warm from proximal to distal bilateral. Hair growth is noted. Mild edema to right ankle and posterior leg. No varicosities noted. Neuro: Light touch intact bilateral. No clonus noted. No focal neurologic deficits Derm: Skin texture and turgor within normal limits. Toenails normal in appearance. Webspaces 1-4 clean, dry, intact bilateral. No rashes, subcutaneous nodules, or open lesions noted. Positive ecchymosis. Negative fracture blisters. No cellulitis, no lymphangitis, no SSI. No hyperkeratotic tissue. Musculoskeletal/Orthopaedic: Local edema and ecchymosis is noted to posterior ankle and calf right foot. There is decreased plantarflexory strength of the foot against resistance. Passive dorsiflexion of the foot is increased. With the patient prone on the exam table, Hines squeeze test is positive with no plantarflexion of the foot with superficial squeeze of the gastroc soleus complex. There is a palpable dell noted to the achilles tendon near the myotendinous junction. Ecchymosis and swelling are mild. Radiographs: 3 views of the right ankle from 03/28/23 were reviewed today. Radiographic Impression: No acute fractures or dislocations noted. No bony cysts or tumors noted. Mild calcaneal enthesophyte formation noted to posterior aspect of the heel. MRI: IMPRESSION: 1. Full-thickness disruption of the proximal/mid Achilles tendon, approximately 7 cm proximal to the calcaneal insertion. Findings of severe underlying Achilles tendinosis/tendinopathy. Mild undersurface tearing of the insertional fibers. 2. Mild tenosynovitis of the posterior tibialis and flexor digitorum longus tendons. 3. Diffuse subcutaneous and soft tissue edema. 4. Small ankle joint effusion. 5. 8 mm ganglion cyst noted posteromedially, just medial to the flexor hallucis longus tendon. Assessment: This is a 68 year old patient presenting with achilles tendon rupture right lower extremity. MRI confirmed rupture of achilles at myotendinous junction. Plan: A comprehensive history and physical examination were preformed. The patient was educated on clinical and radiographic findings, diagnosis and treatment plans. Patient state that he understands all that has been explained and all questions were answered to his apparent satisfaction. - Discussed with patient today about conservative versus surgical correction. Due to prodromal symptoms and overall quality of tendon noted on his MRI, discussed that conservative treatment of this rupture would likely result in higher risk of rerupture in the future. At this time would recommend surgical intervention for Achilles repair and flexor hallucis longus tendon transfer. -Dispensed cam boot today and heel lifts in plantarflexed position. Patient will need cardiac clearance. Discussed that treatment not as reliant on accelerated timeline due to FHL tendon transfer. Will have patient get cardiac clearance and we will schedule surgery after. -Return to clinic after clearance. Total patient care time w/ pt was at least 45 minutes w/ at least 50% of the time spent reviewing the results of the recent imaging including (MRI,CT,EMG/NCV) counseling the pt on treatment options and coordinating their care. Angus Hagen DPM PGY 3 I personally saw and evaluated the patient. I reviewed the resident's note. I agree with the resident's assessment and plan unless otherwise noted. Rickey Woodruff DPM, FACFAS documented in this encounter [facility] 04-08-2023 Note [facility] 04-02-2023 Note [facility] 04-02-2023 History of Presen t illness Narrative Radiology Service Progress Note PATIENT NAME: Ru Workman DATE OF SERVICE: April 02, 2023 TIME: 11:58 AM PATIENT IDENTITY VERIFICATION COMPLETED USING TWO (2) IDENTIFIERS: Name and Date of confirmed by patient verbally and Name and Date of confirmed by identification band. FALL SCREENING: Has the patient had 2 falls in the last year or 1 fall with injury or currently using an Ambulatory Assistive Device (Walker, Cane, Wheelchair, Crutches, etc.)? Yes, Patient High Risk for Falls What interventions were put in place to prevent falls during this visit? Instructed Patient to Call for Help if Needed, Offered Assistance with Transfers/Clothing, Instructed Patient to Remain Seated (Not on Exam Table) Until Exam, and Increased Observations by Caregivers PATIENT GENDER DATA: Male PATIENT RELEVANT IMPLANT DATA REVIEWED: Not Applicable RADIOLOGY DEPARTMENT: MR; Exam(s) Completed: Lower MSK: Ankle/Hind Foot, right PERIPHERAL IV DATA: Not applicable SIGNED BY: RT Jon(R) April 02, 2023 11:58 AM documented in this encounter [facility] 04-02-2023 Note [facility] 04-02-2023 Note [facility] 04-02-2023 History of Presen t illness Narrative CC: Achilles tendon injury HPI: This 68 year old male with PMH indicated below presents complaining of right ankle pain x 5 days. Patient states the injury occurred on 03/28/23 when he slipped and felt a pop in the back of his leg with immediate pain. Patient has history of an achilles rupture of his left leg and states this feels similar. Denies any other injuries. Denies any LOC. Was able to bear wt following the injury. Pt proceeded to the ED after. Radiographs taken were negative for any fxs. He was placed in a posterior splint and was instructed to remain NWB. Of note, patient has afib and is on Eliquis. Denies smoking. Denies any other pedal complaints. PAST MEDICAL HISTORY Diagnosis Date A-fib (HCC) Personal history of malignant melanoma of skin Current Outpatient Medications Medication Sig Dispense Refill sildenafil (VIAGRA) 50 mg tablet TAKE 1 TABLET BY MOUTH NEEDED 30 - 60 MINUTES BEFORE SEXUAL INTERCOURSE 15 tablet 2 warfarin (COUMADIN) 4 mg tablet TAKE 2 TABLETS 1 TIME DAILY INSTRUCTED 180 tablet 1 dilTIAZem (CARDIZEM) 120 mg tablet Take 1 tablet by mouth once daily. 90 tablet 1 omega 8-xlw-aas-fish oil (FISH OIL) 100-160-1,000 mg cap Take by mouth. VIT B COMPLEX 100 COMBO NO.2 ORAL Take by mouth. vitamin D3-vit K1-vit MK4-MK7 50-500-1,500 mcg cap Take by mouth. finasteride (PROSCAR) 5 mg tablet TAKE 1 TABLET BY MOUTH EVERY DAY 30 tablet 5 zoster RZV vaccine (SHINGRIX) 50 mcg/0.5 mL injection Repeat 2nd dose in 2-6 months. 1 Each 1 No current facility-administered medications for this visit. ALLERGIES No Known Allergies PAST SURGICAL HISTORY Procedure Laterality Date PAST SURGICAL HISTORY OF Open knee reconstruction: 5 knee surgeries on right, 2 on left PAST SURGICAL HISTORY OF arthroscopy left shoulder PAST SURGICAL HISTORY OF ORIF left wrist with screws. PAST SURGICAL HISTORY OF excision ganglion cysts PAST SURGICAL HISTORY OF nose repair PAST SURGICAL HISTORY OF Bilateral retinal detachment repair REPAIR INCISIONAL HERNIA,REDUCIBLE N/A 10/14/2022 Umbilical hernia repair TONSILLECTOMY & ADENOIDECTOMY <AGE 12 Tonsil/adenoidectomy VASECTOMY UNI/BI SPX W/POSTOP SEMEN EXAMS XCAPSL CTRC RMVL INSJ IO LENS PROSTH W/O ECP Bilateral FAMILY HISTORY Problem Relation Age of Onset Diabetes Father Heart disease Father Accidental Mother fire Hypertension Sister No Ocular Disease Other Social History Tobacco Use Smoking status: Never Passive exposure: Never Smokeless tobacco: Never Vaping Use Vaping Use: Never used Substance Use Topics Alcohol use: Yes Comment: 1-2 drinks daily Drug use: Never REVIEW OF SYSTEMS See MA note Physical Examination: On General Observation: Patient is a pleasant, cooperative, well developed 68 year old adult male. The patient is alert and oriented to time, place and person. Patient has normal affect and mood. Vascular: DP and PT pulses are palpable. CFT less than 3 seconds to all digits bilateral. Skin temperature is warm to warm from proximal to distal bilateral. Hair growth is noted. Mild edema to right ankle and posterior leg. No varicosities noted. Neuro: Light touch intact bilateral. No clonus noted. No focal neurologic deficits Derm: Skin texture and turgor within normal limits. Toenails normal in appearance. Webspaces 1-4 clean, dry, intact bilateral. No rashes, subcutaneous nodules, or open lesions noted. Positive ecchymosis. Negative fracture blisters. No cellulitis, no lymphangitis, no SSI. No hyperkeratotic tissue. Musculoskeletal/Orthopaedic: Local edema and ecchymosis is noted to posterior ankle and calf right foot. There is decreased plantarflexory strength of the foot against resistance. Passive dorsiflexion of the foot is increased. With the patient prone on the exam table, Hines squeeze test is positive with no plantarflexion of the foot with superficial squeeze of the gastroc soleus complex. There is a palpable dell noted to the achilles tendon near the myotendinous junction. Ecchymosis and swelling are mild. Radiographs: 3 views of the right ankle from 03/28/23 were reviewed today. Radiographic Impression: No acute fractures or dislocations noted. No bony cysts or tumors noted. Mild calcaneal enthesophyte formation noted to posterior aspect of the heel. Assessment: This is a 68 year old patient presenting with achilles tendon rupture right lower extremity. Suspect myotendinous junction rupture, but will obtain MRI to confirm. Plan: A comprehensive history and physical examination were preformed. The patient was educated on clinical and radiographic findings, diagnosis and treatment plans. Patient state that he understands all that has been explained and all questions were answered to his apparent satisfaction. - Advised patient that there is high suspicion for a myotendinous rupture, but we will obtain a stat MRI to confirm. In the mean time, will begin non operative treatment. - Cast was applied today with the foot in plantarflexion. - Strict NWB to the RLE in the cast. Follow up after MRI Carmine Reese DPM PGY-3 I personally saw and evaluated the patient. I reviewed the resident's note. I agree with the resident's assessment and plan unless otherwise noted. Rickey Woodruff DPM, FACFAS REVIEW OF SYSTEMS: GENERAL: Well developed, well nourished. No acute distress PAIN: Negative for pain, history of chronic pain or current treatment for chronic pain conditions CARDIOVASCULAR: Negative for chest pain, leg swelling and palpations. MSK: Positive for joint swelling SKIN: Negative for lesions, rash, itching, metal sensitivity NEURO: Negative for seizure, trauma, numbness/tingling of extremities. ENDOCRINE: Negative for diabetic associated symptoms HEMATOLOGY: on coumadin documented in this encounter [facility] 03-31-2023 Note [facility] 03-31-2023 History of Presen t illness Narrative ED Follow Up: Patient discharged from [facility] ED on 03/28/23. 1. How are you feeling since your ED visit? Left for pt to call the office with questions or concerns Have your symptoms improved or resolved? Left for pt to call the office with questions or concerns 2. Were you prescribed any medications while in the ED or advised to stop any medication? Left for pt to call the office with questions or concerns - If yes, were you able to fill your prescriptions? Left for pt to call the office with questions or concerns -if stopped medication, what was the medication? Left for pt to call the office with questions or concerns 3. Were you advised to schedule a follow up appointment with your provider? Left for pt to call the office with questions or concerns - If no, Do you feel like you need an appointment scheduled? Left VM for pt to call the office with questions or concerns - If yes, Do you need this scheduled now or has this already been scheduled? Left VM for pt to call the office with questions or concerns 4. Were you able to contact the office or production editor provider prior to your ED visit? Left VM for pt to call the office with questions or concerns 5. Is there anything else I can do for you today? Left VM for pt to call the office with questions or concerns documented in this encounter [facility] 03-25-2023 Note [facility] 03-25-2023 History of Presen t illness Narrative ED Follow Up: Patient discharged from [facility] ED on 03/23/23. 1. How are you feeling since your ED visit? better Have your symptoms improved or resolved? Yes 2. Were you prescribed any medications while in the ED or advised to stop any medication? Yes - If yes, were you able to fill your prescriptions? Yes -if stopped medication, what was the medication? NA 3. Were you advised to schedule a follow up appointment with your provider? Yes - If no, Do you feel like you need an appointment scheduled? Not applicable - If yes, Do you need this scheduled now or has this already been scheduled? No 4. Were you able to contact the office or production editor provider prior to your ED visit? Yes 5. Is there anything else I can do for you today? No documented in this encounter [facility] 03-11-2023 Note [facility] 03-11-2023 History of Presen t illness Narrative This note was created using [employer]. Subjective Ru Workman is a 68 year old male here today for routine visit and follow up on his Afib. PMH afib, elevated PSA, melanoma. Patient denies changes in health since last office visit. Reports feeling well. Denies concerns or complaints today. I reviewed his past medical, surgical, social, and family histories today and updated chart. Allergies, chronic medications, and supplements were also reviewed and his list is now up to date. Afib: Dx 2020. He is taking coumadin 6 mg daily and 8 mg on Fridays. Denies any symptoms related to afib, denies unusual bleeding. He does notice easy bruising. Reports mainly on forearm. He is also taking cardizem daily for management. This was started on this in [place] when he was diagnosed. Elevated PSA: since at least 2013. Had prostate biopsy in 01/25/2014 for elevated PSA of 5.7 in [place]. 12/20/21 PSA 10.5. most recent PSA 01/07 of 8.81. He is seeing Dr Tai. He was last seen 12/30/22. He had MRI fusion bx on 06/26/22 path benign. Luts okay. Was on flomax with no noted change in Luts. He did stop this. Reported muscle wasting when taking. He was started on finsteride 5 mg daily for this in december. Reports home BPs 120-130s/70s. Melanoma: Dx 1991, lower back. It was removed x 3. He goes yearly for check up. He has appt next month for evaluation. Preventative: he is not interested in flu, COVID, or RSV vaccines. He has had 2 COVID vaccine. Last colonoscopy 2016 in [place], reports one polyp. He does not smoke or chew tobacco. He reports cutting back on alcohol. States stop drinking during the week. Reports drinking 8 cocktails on the weekends. Reports he cut back about a month ago. States he was drinking nightly Some elements of above documentation were copied from my progress note of 02/26/22 and have been reexamined and updated where appropriate. All elements reflect the current assessment and medical decision making today . ALLERGIES No Known Allergies Current Outpatient Medications Medication Sig Dispense Refill sildenafil (VIAGRA) 50 mg tablet TAKE 1 TABLET BY MOUTH NEEDED 30 - 60 MINUTES BEFORE SEXUAL INTERCOURSE 15 tablet 2 warfarin (COUMADIN) 4 mg tablet TAKE 2 TABLETS 1 TIME DAILY INSTRUCTED 180 tablet 1 finasteride (PROSCAR) 5 mg tablet TAKE 1 TABLET BY MOUTH EVERY DAY 30 tablet 5 dilTIAZem (CARDIZEM) 120 mg tablet Take 1 tablet by mouth once daily. 90 tablet 1 omega 6-bfh-ezu-fish oil (FISH OIL) 100-160-1,000 mg cap Take by mouth. VIT B COMPLEX 100 COMBO NO.2 ORAL Take by mouth. vitamin D3-vit K1-vit MK4-MK7 50-500-1,500 mcg cap Take by mouth. zoster RZV vaccine (SHINGRIX) 50 mcg/0.5 mL injection Repeat 2nd dose in 2-6 months. 1 Each 1 No current facility-administered medications for this visit. ACTIVE PROBLEM LIST Enthesopathy of Knee Personal History of Malignant Melanoma of Skin Follow-Up Examination Following Surgery A-Fib (Hcc) Elevated Prostate Specific Antigen (Psa) PAST MEDICAL HISTORY Diagnosis Date A-fib (HCC) Personal history of malignant melanoma of skin PAST SURGICAL HISTORY Procedure Laterality Date PAST SURGICAL HISTORY OF Open knee reconstruction: 5 knee surgeries on right, 2 on left PAST SURGICAL HISTORY OF arthroscopy left shoulder PAST SURGICAL HISTORY OF ORIF left wrist with screws. PAST SURGICAL HISTORY OF excision ganglion cysts PAST SURGICAL HISTORY OF nose repair PAST SURGICAL HISTORY OF Bilateral retinal detachment repair REPAIR INCISIONAL HERNIA,REDUCIBLE N/A 10/14/2022 Umbilical hernia repair TONSILLECTOMY & ADENOIDECTOMY <AGE 12 Tonsil/adenoidectomy VASECTOMY UNI/BI SPX W/POSTOP SEMEN EXAMS XCAPSL CTRC RMVL INSJ IO LENS PROSTH W/O ECP Bilateral Social History Tobacco Use Smoking status: Never Passive exposure: Never Smokeless tobacco: Never Vaping Use Vaping Use: Never used Substance Use Topics Alcohol use: Yes Comment: 1-2 drinks daily Drug use: Never Family History Problem Relation Age of Onset Diabetes Father Heart disease Father Accidental Mother fire Hypertension Sister No Ocular Disease Other Review of Systems Constitutional: Negative for activity change, appetite change, chills, diaphoresis, fatigue, fever and unexpected weight change. HENT: Negative. Eyes: Negative for visual disturbance. Respiratory: Negative for cough, choking, chest tightness, shortness of breath and wheezing. Cardiovascular: Positive for leg swelling. Negative for chest pain and palpitations. Since having left ankle pain, hasn't been as mobile. Wearing compression socks and controlled with use Gastrointestinal: Negative for abdominal pain, constipation and diarrhea. Heartburn last night due to eating late Endocrine: Negative. Negative for cold intolerance, heat intolerance, polydipsia, polyphagia and polyuria. Genitourinary: Positive for urgency. Negative for difficulty urinating, dysuria, frequency, hematuria and testicular pain. Occasional urgency No slowing or trouble starting stream Musculoskeletal: Negative. Skin: Negative for rash. Neurological: Negative for dizziness, tremors, light-headedness, numbness and headaches. Hematological: Negative for adenopathy. Bruises/bleeds easily. Psychiatric/Behavioral: Negative for dysphoric mood and sleep disturbance. The patient is not nervous/anxious. Objective BP 132/78 (BP Site: Left Arm, BP Position: Sitting, BP Cuff Size: Regular Adult) Pulse 88 Temp 36.6 C (97.8 F) (Oral) Resp 18 Ht 182.9 cm (6') Wt 104.8 kg (231 lb) SpO2 98% BMI 31.33 kg/m 03/11/23 0953 03/11/23 1011 BP: 132/78 122/62 BP Site: Left Arm BP Position: Sitting BP Cuff Size: Regular Adult Pulse: 88 Resp: 18 Temp: 36.6 C (97.8 F) TempSrc: Oral SpO2: 98% Weight: 104.8 kg (231 lb) Height: 182.9 cm (6') Physical Exam Vitals and nursing note reviewed. Constitutional: General: He is not in acute distress. Appearance: Normal appearance. He is not ill-appearing. HENT: Head: Normocephalic and atraumatic. Nose: Nose normal. Mouth/Throat: Mouth: Mucous membranes are moist. Eyes: Pupils: Pupils are equal, round, and reactive to light. Neck: Vascular: No carotid bruit. Cardiovascular: Rate and Rhythm: Normal rate and regular rhythm. Pulses: Normal pulses. Heart sounds: Normal heart sounds, S1 normal and S2 normal. Pulmonary: Effort: Pulmonary effort is normal. No respiratory distress. Breath sounds: Normal breath sounds. No wheezing, rhonchi or rales. Abdominal: General: Bowel sounds are normal. Palpations: Abdomen is soft. Tenderness: There is no abdominal tenderness. Musculoskeletal: Cervical back: Normal range of motion and neck supple. Right lower le+ Pitting Edema present. Left lower le+ Pitting Edema present. Lymphadenopathy: Cervical: No cervical adenopathy. Skin: General: Skin is warm and dry. Findings: Bruising present. Comments: Deniz arm bruising Neurological: Mental Status: He is alert and oriented to person, place, and time. Psychiatric: Mood and Affect: Mood normal. Behavior: Behavior normal. Thought Content: Thought content normal. Judgment: Judgment normal. Component Latest Ref Rng & Units 09/18/2022 12/30/2022 01/26/2023 02/10/2023 03/02/2023 03/11/2023 Protein, Total 6.3 - 8.0 g/dL 6.6 Albumin 3.9 - 4.9 g/dL 4.2 Calcium 8.5 - 10.2 mg/dL 9.1 Bilirubin, Total 0.2 - 1.3 mg/dL 0.6 Alkaline Phosphatase 38 - 113 U/L 54 AST 14 - 40 U/L 19 ALT 10 - 54 U/L 34 Glucose 74 - 99 mg/dL 97 BUN 9 - 24 mg/dL 25 (H) Creatinine 0.73 - 1.22 mg/dL 1.08 Sodium 136 - 144 mmol/L 145 (H) Potassium 3.7 - 5.1 mmol/L 3.8 Chloride 97 - 105 mmol/L 110 (H) CO2 22 - 30 mmol/L 26 Anion Gap 9 - 18 mmol/L 9 eGFR >=60 mL/min/1.73m 75 WBC 3.70 - 11.00 k/uL 10.58 10.75 RBC 4.20 - 6.00 m/uL 4.52 4.48 Hemoglobin 13.0 - 17.0 g/dL 14.3 13.8 Hematocrit 39.0 - 51.0 % 43.1 42.8 MCV 80.0 - 100.0 fL 95.4 95.5 MCH 26.0 - 34.0 pg 31.6 30.8 MCHC 30.5 - 36.0 g/dL 33.2 32.2 RDW-CV 11.5 - 15.0 % 14.2 13.3 Platelet Count 150 - 400 k/uL 171 214 MPV 9.0 - 12.7 fL 9.8 10.4 Cholesterol, Total <200 mg/dL 253 (H) 229 (H) Triglyceride <150 mg/dL 79 158 (H) HDL Cholesterol >39 mg/dL 72 54 Non HDL Cholesterol <130 mg/dL 181 (H) 175 (H) Fasting Time hrs 12 12 VLDL Cholesterol <30 mg/dL 16 32 (H) TC:HDL Ratio <5.10 3.51 4.24 LDL Cholesterol <100 mg/dL 165 (H) 143 (H) LDL:HDL Ratio <2.54 2.29 2.65 (H) PT Sec <13.1 sec 23.6 (H) PT INR 0.9 - 1.3 2.4 (H) INR (POCT) 0.8 - 1.2 2.2 (H) 2.7 (H) Internal Quality Check Acceptable Acceptable TSH 0.270 - 4.200 mIU/L 2.820 Vitamin D 25 Hydroxy >=30.0 ng/mL 45.6 PSA <2.60 ng/mL 8.81 (H) Uric Acid 4.0 - 8.1 mg/dL 5.1 ASSESSMENT/PLAN: 1. Atrial fibrillation, unspecified type (HCC) - ICD9: 427.31, ICD10: I48.91 (primary diagnosis) - chronic stable. Continue Cardizem and coumadin daily. INR in therapeutic range. Continue current dose recheck in 4 wks. - INR (POC) 2. Erectile dysfunction, unspecified erectile dysfunction type - ICD9: 607.84, ICD10: N52.9 - chronic, managed with viagra 3. Elevated prostate specific antigen (PSA) - ICD9: 790.93, ICD10: R97.20 - continue management with DR Tai - continue finasteride daily. Ryan Edwards APRN.DATA SYSTEMS MANAGER documented in this encounter [facility] 2023 Miscellaneous Notes Last OV 02/10/23 Apt 03/11/23 Pharmacy calls in requesting the following refill(s): Requested Prescriptions Pending Prescriptions Disp Refills sildenafil (VIAGRA) 50 mg tablet [Pharmacy Med Name: SILDENAFIL 50 MG TABLET] 15 tablet 2 Sig: TAKE 1 TABLET BY MOUTH NEEDED 30 - 60 MINUTES BEFORE SEXUAL INTERCOURSE Carlotta Nieto MA documented in this encounter [facility] 03-02-2023 [facility] 03-02-2023 History of Presen t illness Narrative Pt here for his INR pts Previous INR 3.1 Pts current dose Pts INR today 2.2 Please advise of instructions Per CN instructions pt to take 6 mg daily except 8 mg on Medhat Carlotta Nieto MA documented in this encounter [facility] 02-28-2023 Note HNO ID: [id number] Author: Note, Interface Service: ? Author Type: ? Type: Progress Notes Filed: 02/28/2023 5:28 AM Note Text: Epic Scheduled Downtime: 02/28/2023 1:00:00 AM to 02/28/2023 1:28:00 AM [facility] 02-10-2023 Note [facility] 02-10-2023 Note [facility] 02-10-2023 Instructions Ryan Edwards APRN.BARBIE - 02/10/2023 8:26 AM EDT ASSESSMENT/PLAN: 1. Atrial fibrillation, unspecified type (HCC) - ICD9: 427.31, ICD10: I48.91 (primary diagnosis) - INR (POC) 2. Acute right ankle pain - ICD9: 719.47, 338.19, ICD10: M25.571 - URIC ACID BLOOD - CONSULT TO PODIATRY - XR ANKLE 2V AP/LAT RIGHT - CBC Ryan Edwards APRN.DATA SYSTEMS MANAGER documented in this encounter [facility] 02-10-2023 History of Presen t illness Narrative Images from the original note were not included. This note was created using [employer]. Subjective Ru Workman is a 67 year old male here today for ER follow up on 02/01/23 for right ankle pain. PMH afib, melanoma, elevated PSA. He went to ER with right ankle pain x 2 days. Pain was back of ankle. He felt related to recently started bicycling. Ankle was red posterior aspect and laterally. Ankle was swollen. Light touch pressure worsened pain. They felt most likely arthritic, gout or pseudogout. He was given course of prednisone and oxycodone. He completed steroid course. Pain has improved but continues with shooting pain posterior ankle up to lower calf if he steps a certain way. States constant ache when up walking or weight bearing. No pain with sitting. He reports swelling by the end of the day. He is wearing compression socks. Denies fever, chills, redness. Pt concerned for possible achilles rupture. States he had left Natasha rupture 8 yrs ago. Denies family hx of gout. ALLERGIES No Known Allergies Current Outpatient Medications Medication Sig Dispense Refill warfarin (COUMADIN) 4 mg tablet TAKE 2 TABLETS 1 TIME DAILY INSTRUCTED 180 tablet 1 finasteride (PROSCAR) 5 mg tablet TAKE 1 TABLET BY MOUTH EVERY DAY 30 tablet 5 dilTIAZem (CARDIZEM) 120 mg tablet Take 1 tablet by mouth once daily. 90 tablet 1 omega 1-hze-pqs-fish oil (FISH OIL) 100-160-1,000 mg cap Take by mouth. VIT B COMPLEX 100 COMBO NO.2 ORAL Take by mouth. vitamin D3-vit K1-vit MK4-MK7 50-500-1,500 mcg cap Take by mouth. zoster RZV vaccine (SHINGRIX) 50 mcg/0.5 mL injection Repeat 2nd dose in 2-6 months. 1 Each 1 sildenafil (VIAGRA) 50 mg tablet Take 1 tablet by mouth as needed. 30-60 minutes before sexual intercourse. 15 tablet 3 No current facility-administered medications for this visit. ACTIVE PROBLEM LIST Enthesopathy of Knee Personal History of Malignant Melanoma of Skin Follow-Up Examination Following Surgery A-Fib (Hcc) Elevated Prostate Specific Antigen (Psa) PAST MEDICAL HISTORY Diagnosis Date A-fib (HCC) Personal history of malignant melanoma of skin PAST SURGICAL HISTORY Procedure Laterality Date PAST SURGICAL HISTORY OF Open knee reconstruction: 5 knee surgeries on right, 2 on left PAST SURGICAL HISTORY OF arthroscopy left shoulder PAST SURGICAL HISTORY OF ORIF left wrist with screws. PAST SURGICAL HISTORY OF excision ganglion cysts PAST SURGICAL HISTORY OF nose repair PAST SURGICAL HISTORY OF Bilateral retinal detachment repair REPAIR INCISIONAL HERNIA,REDUCIBLE N/A 10/14/2022 Umbilical hernia repair TONSILLECTOMY & ADENOIDECTOMY <AGE 12 Tonsil/adenoidectomy VASECTOMY UNI/BI SPX W/POSTOP SEMEN EXAMS XCAPSL CTRC RMVL INSJ IO LENS PROSTH W/O ECP Bilateral Social History Tobacco Use Smoking status: Never Passive exposure: Never Smokeless tobacco: Never Vaping Use Vaping Use: Never used Substance Use Topics Alcohol use: Yes Comment: 1-2 drinks daily Drug use: Never Family History Problem Relation Age of Onset Diabetes Father Heart disease Father Accidental Mother fire Hypertension Sister No Ocular Disease Other Review of Systems Constitutional: Negative for activity change, appetite change, chills, fatigue and fever. Respiratory: Negative for cough, shortness of breath and wheezing. Cardiovascular: Negative for chest pain, palpitations and leg swelling. Musculoskeletal: Positive for arthralgias and joint swelling. Right ankle pain See HPI Neurological: Negative for dizziness and headaches. Objective 02/10/23 0756 02/10/23 0808 BP: 142/60 132/80 BP Site: Left Arm BP Position: Sitting BP Cuff Size: Regular Adult Pulse: 62 Resp: 18 Temp: 36.8 C (98.2 F) TempSrc: Oral SpO2: 96% Weight: 106.7 kg (235 lb 3.2 oz) Height: 182.9 cm (6') Physical Exam Vitals and nursing note reviewed. Constitutional: General: He is not in acute distress. Appearance: Normal appearance. He is obese. He is not ill-appearing. HENT: Head: Normocephalic and atraumatic. Cardiovascular: Rate and Rhythm: Normal rate and regular rhythm. Pulses: Normal pulses. Dorsalis pedis pulses are 2+ on the right side and 2+ on the left side. Posterior tibial pulses are 2+ on the right side and 2+ on the left side. Heart sounds: Normal heart sounds. Pulmonary: Effort: Pulmonary effort is normal. Breath sounds: Normal breath sounds. Musculoskeletal: Right ankle: Swelling present. Tenderness present. Normal range of motion. Right Achilles Tendon: Tenderness present. Left ankle: Swelling present. Normal range of motion. Right foot: Normal range of motion. Left foot: Normal range of motion. Legs: Comments: 1+ deniz ankle edema Trace right pedal Feet: Right foot: Skin integrity: Skin integrity normal. No erythema or warmth. Toenail Condition: Right toenails are normal. Left foot: Skin integrity: Skin integrity normal. No erythema or warmth. Toenail Condition: Left toenails are normal. Skin: General: Skin is warm and dry. Neurological: Mental Status: He is alert and oriented to person, place, and time. Psychiatric: Mood and Affect: Mood normal. Behavior: Behavior normal. Thought Content: Thought content normal. Judgment: Judgment normal. Component Latest Ref Rng & Units 09/18/2022 01/26/2023 Protein, Total 6.3 - 8.0 g/dL 6.6 Albumin 3.9 - 4.9 g/dL 4.2 Calcium 8.5 - 10.2 mg/dL 9.1 Bilirubin, Total 0.2 - 1.3 mg/dL 0.6 Alkaline Phosphatase 38 - 113 U/L 54 AST 14 - 40 U/L 19 ALT 10 - 54 U/L 34 Glucose 74 - 99 mg/dL 97 BUN 9 - 24 mg/dL 25 (H) Creatinine 0.73 - 1.22 mg/dL 1.08 Sodium 136 - 144 mmol/L 145 (H) Potassium 3.7 - 5.1 mmol/L 3.8 Chloride 97 - 105 mmol/L 110 (H) CO2 22 - 30 mmol/L 26 Anion Gap 9 - 18 mmol/L 9 eGFR >=60 mL/min/1.73m 75 WBC 3.70 - 11.00 k/uL 10.58 RBC 4.20 - 6.00 m/uL 4.52 Hemoglobin 13.0 - 17.0 g/dL 14.3 Hematocrit 39.0 - 51.0 % 43.1 MCV 80.0 - 100.0 fL 95.4 MCH 26.0 - 34.0 pg 31.6 MCHC 30.5 - 36.0 g/dL 33.2 RDW-CV 11.5 - 15.0 % 14.2 Platelet Count 150 - 400 k/uL 171 MPV 9.0 - 12.7 fL 9.8 Cholesterol, Total <200 mg/dL 253 (H) 229 (H) Triglyceride <150 mg/dL 79 158 (H) HDL Cholesterol >39 mg/dL 72 54 Non HDL Cholesterol <130 mg/dL 181 (H) 175 (H) Fasting Time hrs 12 12 VLDL Cholesterol <30 mg/dL 16 32 (H) TC:HDL Ratio <5.10 3.51 4.24 LDL Cholesterol <100 mg/dL 165 (H) 143 (H) LDL:HDL Ratio <2.54 2.29 2.65 (H) TSH 0.270 - 4.200 mIU/L 2.820 Vitamin D 25 Hydroxy >=30.0 ng/mL 45.6 .agotoday Office Visit on 02/10/2023 Component Date Value Ref Range Status INR (POCT) 02/10/2023 2.6 (H) 0.8 - 1.2 Final Internal Quality Check 02/10/2023 Acceptable Final ASSESSMENT/PLAN: 1. Acute right ankle pain - ICD9: 719.47, 338.19, ICD10: M25.571 (primary diagnosis) - Acute, does not appear to be septic, no increase warmth or redness. There is mild swelling but this is also present in left ankle and is chronic and worsens as day progresses. He does have tenderness over posterior ankle, achilles tendon area. It is very mild in nature. He has full ROM on ankle. Pain with dorsiflexion only. Possible strain, tendonitis, gout. Will check xray and uric acid level. Will refer to podiatry for evaluation and management - URIC ACID BLOOD - CONSULT TO PODIATRY - XR ANKLE 2V AP/LAT RIGHT - CBC 2. Atrial fibrillation, unspecified type (HCC) - ICD9: 427.31, ICD10: I48.91 - Chronic PI INR in range. Continue current dose and recheck one month. - continue management with [facility]. - INR (POC) Ryan Edwards APRN.BARBIE I spent a total of 45 minutes on the date of the service which included preparing to see the patient, [id number] patient care, completing clinical documentation, obtaining and/or reviewing separately obtained history, performing a medically appropriate examination, counseling and educating the patient/family/caregiver, and ordering medications, tests, or procedures. documented in this encounter [facility] 02-04-2023 Note [facility] 02-04-2023 History of Presen t illness Narrative ED Follow Up: Patient discharged from [facility] ED on 02/01/2023. 1. How are you feeling since your ED visit? Better Have your symptoms improved or resolved? Yes 2. Were you prescribed any medications while in the ED or advised to stop any medication? Yes - If yes, were you able to fill your prescriptions? Yes -if stopped medication, what was the medication? na 3. Were you advised to schedule a follow up appointment with your provider? Yes - If no, Do you feel like you need an appointment scheduled? No - If yes, Do you need this scheduled now or has this already been scheduled? No 4. Were you able to contact the office or production editor provider prior to your ED visit? Not applicable 5. Is there anything else I can do for you today? No Patient states steroid is helping at this time. Declined apt. Nhi Cordova MA documented in this encounter [facility] 01-27-2023 Miscellaneous Notes Last OV 09/16/22 Labs 01/26/23 Pharmacy calls in requesting the following refill(s): Requested Prescriptions Pending Prescriptions Disp Refills warfarin (COUMADIN) 4 mg tablet [Pharmacy Med Name: WARFARIN SODIUM 4 MG TABLET] 180 tablet 1 Sig: TAKE 2 TABLETS 1 TIME DAILY INSTRUCTED Carlotta Nieto MA documented in this encounter [facility] 01-26-2023 Miscellaneous Notes Called pt let him know the results pt is not ready to start medication at this time. He just bought a bicycle and is going to start working on his diet Carlotta Nieto MA ----- Message from Ryan Edwards APRN.DATA SYSTEMS MANAGER sent at 01/26/2023 9:52 AM EDT ----- His TC and LDL have improved but remain elevated. His Trig have increased significantly. His 10 yr CV risk is very high at 21%. This means he has a 20% risk of hear attack/stroke over the next 20 yrs. I recommend he start a statin. I know he did not want too but I would highly recommend this to reduce his risk. documented in this encounter [facility] 01-26-2023 Note [facility] 01-26-2023 History of Presen t illness Narrative Pt here for his INR pts Previous INR 2.1 Pts current dose Mon,Wed,Fri 8 mg the rest of the week 6 mg Pts INR today 2.5 Instructed pt to continue current dose recheck 1 month Carlotta Nieto MA documented in this encounter [facility] 01-06-2023 Miscellaneous Notes Patient informed of fasting lab order. La Zapata MA ----- Message from Carlotta Nieto MA sent at 10/02/2022 2:31 PM EDT ----- Recheck lipid in 3 months Carlotta Nieto MA documented in this encounter [facility] 12-30-2022 Note HNO ID: [id number] Author: Stan Tai Jr., MD Service: ? Author Type: Physician Type: Progress Notes Filed: 12/30/2022 1:06 PM Note Text: ESTABLISHED PATIENT OFFICE VISIT HPI Ru Workman is a 67 year old male who presents recently moved from [place]. Ho elevated psa. Bx in 2013 neg when psa was 5. Last psa check was 10.5. minimal luts. On no prostate meds. On coumadin for a fib. 06/26/22 - sp mri fusion bx. Path benign. Luts ok but would like to try something. Gland 99cc. No fever. No uti. 12/30/22 - took flomax for 4 months. No change in luts. Stopped. Also was causing muscle wasting per patient. No fever. No uti. Discussed finasteride. Interested. No recent psa. LAB: Creatinine Date Value Ref Range Status 09/18/2022 1.08 0.73 - 1.22 mg/dL Final No results found for: PSA No results found for: UGLUC , UBILI , UKET , SPGR , UHB , UPH , UPROT , UROBIL , NITRITES , UWBC , UCOLAP MEDICATIONS: dilTIAZem (CARDIZEM) 120 mg tablet Take 1 tablet by mouth once daily. warfarin (COUMADIN) 4 mg tablet TAKE 1 TABLET BY MOUTH EVERY DAY DIRECTED omega 7-ryp-fpk-fish oil (FISH OIL) 100-160-1,000 mg cap Take by mouth. VIT B COMPLEX 100 COMBO NO.2 ORAL Take by mouth. vitamin D3-vit K1-vit MK4-MK7 50-500-1,500 mcg cap Take by mouth. zoster RZV vaccine (SHINGRIX) 50 mcg/0.5 mL injection Repeat 2nd dose in 2-6 months. sildenafil (VIAGRA) 50 mg tablet Take 1 tablet by mouth as needed. 30-60 minutes before sexual intercourse. finasteride (PROSCAR) 5 mg tablet Take 1 tablet by mouth once daily. REVIEW OF SYSTEMS Review of Systems Constitutional: Negative. Respiratory: Negative. Cardiovascular: Negative. Gastrointestinal: Negative. Genitourinary: Negative. Skin: Negative. Neurological: Negative. Psychiatric/Behavioral: Negative. HISTORIES PAST MEDICAL HISTORY Diagnosis Date A-fib (HCC) Personal history of malignant melanoma of skin FAMILY HISTORY Problem Relation Age of Onset Diabetes Father Heart disease Father Accidental Mother fire Hypertension Sister No Ocular Disease Other SOCIAL HISTORY Social History Tobacco Use Smoking status: Never Passive exposure: Never Smokeless tobacco: Never Vaping Use Vaping Use: Never used Substance Use Topics Alcohol use: Yes Comment: 1-2 drinks daily Drug use: Never PHYSICAL EXAMINATION General appearance: Well appearing, alert, in no acute distress, and well-hydrated, well nourished Skin: Skin color, texture, turgor normal, no suspicious rashes or lesions Respiratory:+ effort Cardiovascular: Not examined GI: Normal abdominal exam, Abdomen soft, non-tender. No masses, organomegaly Musculoskeletal: Negative Neuro: Negative Genitourinary: not examined Impression: (R97.20) Elevated prostate specific antigen (PSA) (primary encounter diagnosis) (N40.1, N13.8) BPH with obstruction/lower urinary tract symptoms Plan: Trial finasteride Psa 1 year Stan Tai Jr, MD 12/30/2022 [facility] 12-29-2022 Note [facility] 12-29-2022 History of Presen t illness Narrative Pt here for his INR pts Previous INR 1.9 Pts current dose 8 mg Mon,Wed,Fri 6 mg the rest of the week Pts INR today 2.1 Per CN instructions pt to continue current dose recheck in 1 month Carlotta Nieto MA documented in this encounter [facility] 12-15-2022 Note HNO ID: [id number] Author: Carlotta Nieto MA Service: ? Author Type: Patient Portal Concierge Type: Progress Notes Filed: 12/15/2022 1:07 PM Note Text: Called pt let him know the results Carlotta Nieto MA [facility] 12-15-2022 Note HNO ID: [id number] Author: Ryan Edwards APRN.BARBIE Service: ? Author Type: Nurse Practitioner Type: Progress Notes Filed: 12/15/2022 1:01 PM Note Text: He is coming up. Continue current dose and recheck in 2 wks [facility] 12-15-2022 History of Presen t illness Narrative Called pt let him know the results Carlotta Nieto MA He is coming up. Continue current dose and recheck in 2 wks Pt here for his INR pts Previous INR 1.8 Pts current dose 8 mg Mon,Wed,Fri 6 mg the rest of the week Pts INR today 1.9 Please advise of further instructions Carlotta Nieto MA documented in this encounter [facility] 12-15-2022 Note [facility] 12-08-2022 Note [facility] 12-08-2022 History of Presen t illness Narrative Pt here for his INR pts Previous INR 2.3 Pts current dose 8 mg Tu,Th 6 mg the rest of the week Pts INR today 1.8 Per CN instructions pt to take 8 mg Mon,Wed,Fri 6 mg the rest of the week recheck 1 week Carlotta Nieto MA documented in this encounter [facility] 12-04-2022 Miscellaneous Notes Last OV 09/16/22 Labs 09/18/22 Pharmacy calls in requesting the following refill(s): Requested Prescriptions Pending Prescriptions Disp Refills dilTIAZem (CARDIZEM) 120 mg tablet 90 tablet 1 Sig: Take 1 tablet by mouth once daily. Carlotta Nieto MA documented in this encounter [facility] 12-04-2022 Note HNO ID: [id number] Author: Ileana Posadas MD, PhD Service: ? Author Type: Physician Type: Progress Notes Filed: 12/04/2022 9:44 AM Note Text: Patient just moved to area and needs to establish retina care No history of diabetes 1. 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 Posterior chamber intraocular lens (PCIOL) both eyes -s/p YAG right eye Plan: Return annually I have confirmed and edited as necessary the relevant ophthalmic history, ROS, and the neuro exam findings as obtained by others. I have seen and examined this patient. I have discussed the case and the management of this patient's care with the Resident/Fellow, if applicable. I also have reviewed and agree with the assessment and plan as stated above and agree with all of its relevant components. Ileana Posadas MD [facility] 12-04-2022 Instructions Ileana Posadas MD, PhD - 12/04/2022 9:39 AM EDT Flashes and Floaters OFFICE NUMBER [phone] (Regular business hours) If you notice increased floaters and/or flashing lights or a dark curtain/shadow coming over the vision from any direction, please call Dr. Posadas's office to come in to be seen. BUSINESS PLANNING DIRECTOR DOCTOR [phone] (Evenings, weekends, holidays) Evenings, weekends and holidays If you are calling after regular business hours please call and ask to speak to the on-call software tester. documented in this encounter [facility] 12-04-2022 History of Presen t illness Narrative Patient just moved to [facility] and needs to establish retina care No history of diabetes 1. 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 Posterior chamber intraocular lens (PCIOL) both eyes -s/p YAG right eye Plan: Return annually I have confirmed and edited as necessary the relevant ophthalmic history, ROS, and the neuro exam findings as obtained by others. I have seen and examined this patient. I have discussed the case and the management of this patient's care with the Resident/Fellow, if applicable. I also have reviewed and agree with the assessment and plan as stated above and agree with all of its relevant components. Ileana Posadas MD documented in this encounter [facility] 11-24-2022 Note [facility] 11-24-2022 History of Presen t illness Narrative Pt here for his INR pts Previous INR 3.9 Pts INR today 2.3 Pt to take 8 mg Tues Thurs 6 mg the rest of the week and recheck in 2 weeks Carlotta Nieto MA documented in this encounter [facility] 11-20-2022 Note [facility] 11-20-2022 History of Presen t illness Narrative Pt here for his INR pts Previous INR 2.5 Pts current dose 6 mg Mon, Thurs,Sat 8 mg the rest of the week Pts INR today 3.9 Per CN instructions pt to hold his Coumadin today resume 6 mg Thu recheck on Thu11/24/22 Carlotta Nieto MA documented in this encounter [facility] 11-05-2022 Note [facility] 11-05-2022 History of Presen t illness Narrative Called pt with instructions he is to take 6 mg Sat 8 mg the rest of the week Recheck on November 20 Carlotta Nieto MA documented in this encounter [facility] 10-29-2022 Note [facility] 10-27-2022 Note [facility] 10-27-2022 Note [facility] 10-22-2022 Note [facility] 10-22-2022 History of Presen t illness Narrative Pt here for his INR pts Previous INR 2.1 Pt held his dose for 5 days he had surgery on 10/14/22 resumed 8 mg daily on 10/15/22 Pts INR today 2.1 Per CN instructions pt to continue his current dose and recheck on Thursday10/27/22 Carlotta Nieto MA documented in this encounter [facility] 10-15-2022 Miscellaneous Notes Called pt let him know the information Carlotta Nieto MA Yes resume previous dose recheck in one week Yes if his insurance will cover. Even with insurance coverage it can be very expensive Pt called he had surgery and is resuming his coumadin today pt currently takes 8 mg daily. Instructed pt to recheck in 1 week advise if different. Pt was also asking if his ins covers Eliquis or Xerelto he would like to switch if you are ok with that. He is going to check into it and let us know if it will be covered. Pt also was in [place] prior to his surgery and was in the [facility]. During Surgery the doctor found a tick on pt and was removed pt was instructed to watch the area. Pt doesn't have any red or raised area in the location of where the tick was. Carlotta Nieto MA documented in this encounter [facility] 10-14-2022 Note [facility] 10-14-2022 Miscellaneous Notes Last O 09/16/22 INR 10/03/22 Pharmacy calls in requesting the following refill(s): Requested Prescriptions Pending Prescriptions Disp Refills warfarin (COUMADIN) 4 mg tablet [Pharmacy Med Name: WARFARIN SODIUM 4 MG TABLET] 90 tablet 1 Sig: TAKE 1 TABLET BY MOUTH EVERY DAY DIRECTED Carlotta Nieto MA documented in this encounter [facility] 10-03-2022 Note HNO ID: [id number] Author: April Ortiz APRN.BARBIE Service: ? Author Type: Nurse Practitioner Type: Progress Notes Filed: 10/03/2022 9:41 AM Note Text: Agree with LARRY documentation. April Ortiz APRN.BARBIE [facility] 10-03-2022 Note [facility] 09-23-2022 Note HNO ID: [id number] Author: Carlotta Nieto MA Service: ? Author Type: Patient Portal Concierge Type: Progress Notes Filed: 09/23/2022 3:10 PM Note Text: Called pt Kevin VM with instructions on his coumadin Carlotta Nieto MA [facility] 09-23-2022 Miscellaneous Notes Called pt left VM with results and for him to call the office back if he is interested in starting a statin Carlotta Nieto MA ----- Message from Ryan Edwards APRN.DATA SYSTEMS MANAGER sent at 09/18/2022 9:38 AM EDT ----- Cmp okay but needs to increase water intake Lipids TC and LDL bad chol both elevated. I would recommend a statin Tsh wnl CBC wnl ----- Message from Ryan Edwards APRN.DATA SYSTEMS MANAGER sent at 09/21/2022 8:34 PM EDT ----- Vit d wnl documented in this encounter [facility] 09-23-2022 History of Presen t illness Narrative Called pt Kevin with instructions on his coumadin Carlotta Nieto MA 8 mg daily except 5 mg on fridays. Recheck in 2 wks Pt here for his INR pts Previous INR 2.5 Pts current dose 8 mg Thurs Sat Sun Mon 5 mg Fri Pts INR today 2.1 Please advise of further instructions Carlotta Nieto MA documented in this encounter [facility] 09-23-2022 Note HNO ID: [id number] Author: Ryan Edwards APRN.CNP Service: ? Author Type: Nurse Practitioner Type: Progress Notes Filed: 09/23/2022 3:10 PM Note Text: 8 mg daily except 5 mg on fridays. Recheck in 2 wks [facility] 09-23-2022 Note [facility] 09-18-2022 Note HNO ID: [id number] Author: Carlotta Nieto MA Service: ? Author Type: Patient Portal Concierge Type: Progress Notes Filed: 09/18/2022 2:02 PM Note Text: Called pt let him know the instructions Carlotta Nieto MA [facility] 09-18-2022 History of Presen t illness Narrative Called pt let him know the instructions Carlotta Nieto MA 8 mg today, 5 mg tomorrow, 8 mg Sat, sun, Mon and recheck on Pt here for his INR pts Previous INR 3.9 Pts currently held his dose for 2 days pt normally takes 8 mg daily Pts INR today 2.5 Please advise of further instructions Carlotta Nieto MA documented in this encounter [facility] 09-18-2022 Note HNO ID: [id number] Author: Ryan Edwards APRN.BARBIE Service: ? Author Type: Nurse Practitioner Type: Progress Notes Filed: 09/18/2022 9:32 AM Note Text: 8 mg today, 5 mg tomorrow, 8 mg Sat, sun, Mon and recheck on [facility] 09-18-2022 Note [facility] 09-16-2022 Note [facility] 09-16-2022 Note [facility] 09-16-2022 History of Presen t illness Narrative This note was created using NoteWriter. Subjective Ru Workman is a 67 year old male who presents for surgical evaluation. PMH Afib, elevated PSA. Patient denies changes in health since last office visit. Reports feeling well. Denies concerns or complaints today. I reviewed her past medical, surgical, social, and family histories today and updated chart. Allergies, chronic medications, and supplements were also reviewed and her list is now up to date. Afib: Dx 2 yrs ago. Started on coumadin about a year ago. He is taking coumadin 8 mg daily.Denies any symptoms related to afib. He did go to [facility] for surgical clearance for secondary to afib. We will fax clearance to them. He reports he has stress test and ECG scheduled on Thursday. HPI: Type of Surgery: umbilical hernia Date of Surgery: 10/14/22 Surgeon: Dr Arnold Place of Surgery: [facility] Functional Status of patient: Able to perform activities of daily living: Yes Able to walk up a flight of stairs: Yes Able to do heavy house work: Yes Associated Conditions: Does the patient have diabetes:No Does the patient have lung problems: No Does the patient have heart disease: Yes, afib Has there been any problems with anesthesia in the past? No Is there any family history of allergic reactions to anesthesia in the past? No He reports drinking 2-3 4-5 oz whiskey a night, no beers PAST MEDICAL HISTORY Diagnosis Date A-fib (HCC) Personal history of malignant melanoma of skin PAST SURGICAL HISTORY Procedure Laterality Date PAST SURGICAL HISTORY OF Open knee reconstruction: 5 knee surgeries on right, 2 on left PAST SURGICAL HISTORY OF arthroscopy left shoulder PAST SURGICAL HISTORY OF ORIF left wrist with screws. PAST SURGICAL HISTORY OF excision ganglion cysts PAST SURGICAL HISTORY OF nose repair TONSILLECTOMY & ADENOIDECTOMY <AGE 12 Tonsil/adenoidectomy VASECTOMY UNI/BI SPX W/POSTOP SEMEN EXAMS XCAPSL CTRC RMVL INSJ IO LENS PROSTH W/O ECP Cataract Removal: Left FAMILY HISTORY Problem Relation Age of Onset Accidental Mother fire Diabetes Father Heart disease Father Hypertension Sister Social History Tobacco Use Smoking status: Never Smokeless tobacco: Never Vaping Use Vaping Use: Never used Substance Use Topics Alcohol use: Yes Comment: 1-2 drinks daily Drug use: Never Current Outpatient Medications Medication Sig warfarin (COUMADIN) 4 mg tablet Take 2 tablets 1 time daily as instructed tamsulosin (FLOMAX) 0.4 mg Take 1 capsule by mouth once daily. 30 minutes after the same meal each day. dilTIAZem (CARDIZEM) 120 mg tablet Take 1 tablet by mouth once daily. omega 4-tyl-jvz-fish oil (FISH OIL) 100-160-1,000 mg cap Take by mouth. VIT B COMPLEX 100 COMBO NO.2 ORAL Take by mouth. vitamin D3-vit K1-vit MK4-MK7 50-500-1,500 mcg cap Take by mouth. warfarin (COUMADIN) 5 mg tablet Take as instructed sildenafil (VIAGRA) 50 mg tablet Take 1 tablet by mouth as needed. 30-60 minutes before sexual intercourse. Glucosamine Sulfate 500 mg cap Take 500 mg by mouth once daily. zoster RZV vaccine (SHINGRIX) 50 mcg/0.5 mL injection Repeat 2nd dose in 2-6 months. No current facility-administered medications for this visit. ALLERGIES No Known Allergies Review of Systems Constitutional: Negative for activity change, appetite change, chills, diaphoresis, fatigue, fever and unexpected weight change. HENT: Negative for congestion, ear pain, facial swelling, sinus pressure, sinus pain, sore throat and trouble swallowing. No loose teeth Eyes: Negative for visual disturbance. Respiratory: Negative for cough, choking, chest tightness, shortness of breath and wheezing. Cardiovascular: Negative for chest pain, palpitations and leg swelling. Gastrointestinal: Positive for abdominal distention and nausea. Negative for abdominal pain, anal bleeding, blood in stool, constipation, diarrhea and vomiting. Nausea. Not sure when he had colonoscopy In area of hernia Reports indigestion and increase heartburn since having hernia Endocrine: Negative. Negative for cold intolerance, heat intolerance, polydipsia, polyphagia and polyuria. Genitourinary: Negative for difficulty urinating, dysuria, frequency, hematuria, testicular pain and urgency. Musculoskeletal: Positive for arthralgias and back pain. Generalized joint pain, low back pain chronic, Skin: Negative. Neurological: Negative for dizziness, tremors, light-headedness, numbness and headaches. Hematological: Does not bruise/bleed easily. Psychiatric/Behavioral: Negative for dysphoric mood and sleep disturbance. The patient is not nervous/anxious. Objective BP 122/70 (BP Site: Left Arm, BP Position: Sitting, BP Cuff Size: Regular Adult) Pulse 65 Temp 36.8 C (98.2 F) (Oral) Resp 18 Ht 182.9 cm (6') Wt 101.6 kg (224 lb) SpO2 96% BMI 30.38 kg/m Physical Exam Vitals and nursing note reviewed. Constitutional: General: He is not in acute distress. Appearance: Normal appearance. He is obese. He is not ill-appearing or diaphoretic. HENT: Head: Normocephalic and atraumatic. Right Ear: External ear normal. Left Ear: External ear normal. Nose: Nose normal. No congestion or rhinorrhea. Mouth/Throat: Pharynx: No oropharyngeal exudate. Eyes: General: Lids are normal. No scleral icterus. Right eye: No discharge. Left eye: No discharge. Conjunctiva/sclera: Conjunctivae normal. Pupils: Pupils are equal, round, and reactive to light. Neck: Vascular: Normal carotid pulses. No carotid bruit. Cardiovascular: Rate and Rhythm: Normal rate and regular rhythm. Pulses: Normal pulses. Heart sounds: Normal heart sounds, S1 normal and S2 normal. No murmur heard. No friction rub. No gallop. Pulmonary: Effort: Pulmonary effort is normal. No accessory muscle usage or respiratory distress. Breath sounds: Normal breath sounds. No decreased breath sounds, wheezing, rhonchi or rales. Chest: Chest wall: No tenderness. Abdominal: General: Abdomen is protuberant. Bowel sounds are normal. There is no distension. Palpations: Abdomen is soft. Tenderness: There is abdominal tenderness in the periumbilical area. Hernia: A hernia is present. Hernia is present in the umbilical area. Musculoskeletal: General: No tenderness. Normal range of motion. Cervical back: Normal range of motion and neck supple. Right lower leg: No edema. Left lower leg: No edema. Skin: General: Skin is warm and dry. Coloration: Skin is not pale. Findings: No erythema or rash. Nails: There is no clubbing. Neurological: General: No focal deficit present. Mental Status: He is alert and oriented to person, place, and time. Motor: No abnormal muscle tone. Coordination: Coordination normal. Deep Tendon Reflexes: Reflexes are normal and symmetric. Psychiatric: Attention and Perception: Attention and perception normal. Mood and Affect: Mood normal. Speech: Speech normal. Behavior: Behavior normal. Behavior is cooperative. Thought Content: Thought content normal. Cognition and Memory: Cognition and memory normal. Judgment: Judgment normal. ASSESSMENT/PLAN: 1. Preoperative general physical examination - ICD9: V72.83, ICD10: Z01.818 (primary diagnosis) - pt optimized for surgery from general medical stand point, pending clearance from cardiology. 2. Atrial fibrillation, unspecified type (HCC) - ICD9: 427.31, ICD10: I48.91 - INR supra therapeutic. Hold coumadin today and tomorrow and recheck on . - INR FINGERSTICK B/O 3. Vitamin D deficiency - ICD9: 268.9, ICD10: E55.9 - VITAMIN D 25 HYDROXY 4. Screening for deficiency anemia - ICD9: V78.1, ICD10: Z13.0 - CBC 5. Encounter for screening for diabetes mellitus - ICD9: V77.1, ICD10: Z13.1 - COMP METABOLIC PANEL 6. Screening for lipid disorders - ICD9: V77.91, ICD10: Z13.220 - LIPID PANEL BASIC 7. Screening for thyroid disorder - ICD9: V77.0, ICD10: Z13.29 - TSH BLD Ryan Edwards APRN.DATA SYSTEMS MANAGER Pt here for his INR pts Previous INR 3.1 Pts current Pt took 4 mg on 09/03/22 8 mg the rest of the week Pts INR today 3.9 Carlotta Nieto MA documented in this encounter [facility] 09-04-2022 Note HNO ID: [id number] Author: Carlotta Nieto MA Service: ? Author Type: Patient Portal Concierge Type: Progress Notes Filed: 09/04/2022 2:05 PM Note Text: Called pt let him know to take 5 mg today and resume his normal dose of 8 mg daily Carlotta Nieto MA [facility] 09-04-2022 Note [facility] 09-04-2022 Note [facility] 08-04-2022 Note [facility] 08-04-2022 Instructions Shan Soto MD - 08/04/2022 1:43 PM EDT Images from the original note were not included. Thank you for coming to see me today. It is my pleasure to take care of you. If you have any questions regarding your visit, please don't hesitate to contact us. Ventral Hernia What is a ventral hernia? A hernia occurs when there is a hole in the muscles of the abdominal wall, allowing a loop of intestine or abdominal tissue to push through the muscle layer. A ventral hernia is a hernia that occurs at any location along the midline (vertical center) of the abdomen wall. There are three types of ventral hernia: Epigastric (stomach area) hernia. This hernia occurs anywhere from just below the breastbone to the navel (belly button). This type of hernia is seen in both men and women. Ventral hernia: Front and Side Views Umbilical (belly button) hernia. This hernia occurs in the area of the belly button. Incisional hernia. This hernia develops at the site of a previous surgery. Up to one-third of patients who have had an abdominal surgery will develop an incisional hernia at the site of their scar. This type of hernia can occur anytime from months to years after an abdominal surgery. What are the causes and risk factors for developing a ventral hernia? There are many causes including: Weakness at the incision site of a previous abdominal surgery (which could result from an infection at the surgery site or failed surgical repair/mesh placement). Weakness in an area of the abdominal wall that was present at . Weakness in the abdominal wall caused by conditions that put strain on the wall. These include: Being overweight Frequent coughing episodes Severe vomiting History of lifting or pushing heavy objects Straining while having a bowel movement/urinating Injuries to the bowel area Lung diseases (chronic obstructive pulmonary disease and emphysema; struggling to breathe puts strain on the abdominal wall) Prostatism (enlargement of the prostate gland, which causes straining while urinating in older men) Older age (general loss of elasticity to abdominal wall) What are the signs and symptoms of a ventral hernia? Some patients don t feel any discomfort in the early stages of ventral hernia formation. Often, the first sign is a visible bulge under the skin in the abdomen or an area that is tender to the touch. The bulge may flatten when lying down or pushing against it. A ventral hernia causes an increasing level of pain when a person: Lifts heavy objects Strains to have a bowel movement/urinate Sits or stands for long periods of time Severe abdominal pain can occur if part of the intestine bulges through the abdominal wall and becomes trapped in the opening. If this happens, the trapped portion of the intestine becomes strangled, loses its blood supply, and starts to . This is a medical emergency that requires immediate care. How is a ventral hernia diagnosed? First, your doctor will review your medical and surgical history. He or she will also perform a physical exam of the abdominal area where a ventral hernia may have occurred. Your doctor may then order imaging tests of the abdomen to look for signs of a ventral hernia. These tests may include an ultrasound, computed tomography (CT) scan, or a magnetic resonance imaging (MRI) study. How is a ventral hernia repaired? Ventral hernias require surgery to repair. Unfortunately, ventral hernias do not go away or get better on their own. In fact, without treatment, ventral hernias can get larger and worsen with time. Untreated hernias can become difficult to repair and can lead to serious complications, such as strangulation of a portion of the intestine. The goal of ventral hernia surgery is to repair the hole/defect in the abdominal wall so that the intestine and other abdominal tissue cannot bulge through the wall again. The surgery often restores the tone and shape of the abdominal wall by repairing the hole and bringing the muscles back to their normal position. There are two main types of surgical approaches, laparoscopic hernia repair and open hernia repair. Laparoscopic surgery. With this approach, several small incisions are made away from where the hernia has occurred. A laparoscope (a thin lighted tube with a camera on the tip) is inserted through one of the openings to help guide the surgery. A surgical mesh material may be inserted to strengthen the weakened area in the abdominal wall. Advantages of this approach, compared with open hernia repair, include a lower risk of infection (smaller-sized incisions are used). Open hernia repair. With this approach, an open incision is made in the abdomen where the hernia has occurred and the intestine or abdominal tissue is pushed back in place. Depending on the size of your hernia, your surgeon might need to perform a component separation procedure. This typically involves cutting through some of your abdominal wall muscles along the side of your body. A mesh material is placed to reinforce this repair and reduce hernia recurrences. The skin is typically closed with dissolvable stitches and glue. What ventral hernia repair method is the best for me? Your surgeon will consider several factors to help determine the best surgical hernia repair method for you. Such factors include your age, existing health problems and medical history, size of the hernia, size and contour of the abdominal wall, amount of skin that can be used for the repair, and presence of infection. Importantly, your hernia repair is tailored to your specific situation based on the goals of the procedure and expected outcomes. References: Keith LAWLER. [employer] Abdominal Wall Reconstruction. [place], [place]: Luis Torres, 2012. Casandra PATINO, Keith LAWLER. Open Ventral Hernia Repair with Component Separation. Surg Clin N Am 2013;93:111-1133. Agustin CE, Josee DP, Maricarmen JE, Keith LAWLER. Abdominal Wall Reconstruction. Curr Probl Surg 2013;50:553-584. [employer]. Ventral Hernia Repair Accessed 12/05/2015. Copyright 7450-1953 [facility]. All rights reserved. documented in this encounter [facility] 08-04-2022 History of Presen t illness Narrative Ru Workman is a 67 year old White male who presents with complaints of umbilical hernia. He has had this for few months. He does report some discomfort if any other activities that he is doing. He is otherwise tolerating diet and having normal bowel function. He is on warfarin for atrial fibrillation. He recently moved here from [place] and is not established with a medical superintendent yet. He denies any tobacco use. However he does drink 1-2 drinks daily. PAST MEDICAL HISTORY Diagnosis Date A-fib (HCC) Personal history of malignant melanoma of skin PAST SURGICAL HISTORY Procedure Laterality Date PAST SURGICAL HISTORY OF Open knee reconstruction: 5 knee surgeries on right, 2 on left PAST SURGICAL HISTORY OF arthroscopy left shoulder PAST SURGICAL HISTORY OF ORIF left wrist with screws. PAST SURGICAL HISTORY OF excision ganglion cysts PAST SURGICAL HISTORY OF nose repair TONSILLECTOMY & ADENOIDECTOMY <AGE 12 Tonsil/adenoidectomy VASECTOMY UNI/BI SPX W/POSTOP SEMEN EXAMS XCAPSL CTRC RMVL INSJ IO LENS PROSTH W/O ECP Cataract Removal: Left Social History Tobacco Use Smoking status: Never Smokeless tobacco: Never Vaping Use Vaping Use: Never used Substance Use Topics Alcohol use: Yes Comment: 1-2 drinks daily Drug use: Never FAMILY HISTORY Problem Relation Age of Onset Accidental Mother fire Diabetes Father Heart disease Father Hypertension Sister ALLERGIES No Known Allergies Current Outpatient Medications Medication Sig tamsulosin (FLOMAX) 0.4 mg Take 1 capsule by mouth once daily. 30 minutes after the same meal each day. dilTIAZem (CARDIZEM) 120 mg tablet Take 1 tablet by mouth once daily. omega 9-tsa-ldx-fish oil (FISH OIL) 100-160-1,000 mg cap Take by mouth. VIT B COMPLEX 100 COMBO NO.2 ORAL Take by mouth. vitamin D3-vit K1-vit MK4-MK7 50-500-1,500 mcg cap Take by mouth. Glucosamine Sulfate 500 mg cap Take 500 mg by mouth once daily. warfarin (COUMADIN) 4 mg tablet Take as instructed warfarin (COUMADIN) 5 mg tablet Take as instructed zoster RZV vaccine (SHINGRIX) 50 mcg/0.5 mL injection Repeat 2nd dose in 2-6 months. sildenafil (VIAGRA) 50 mg tablet Take 1 tablet by mouth as needed. 30-60 minutes before sexual intercourse. No current facility-administered medications for this visit. REVIEW OF SYSTEMS PAIN ASSESSMENT: Negative for pain, history of chronic pain, or current treatment for a chronic pain condition. GENERAL: No weight loss, malaise or fevers NECK: Negative for lumps, goiter, pain and significant neck swelling RESPIRATORY: Negative for cough, hemoptysis, wheezing, COPD, dyspnea or shortness of breath CARDIOVASCULAR: Negative for chest pain, leg swelling, hypertension, CHF or palpitations GI: No nausea, vomiting, or diarrhea : No history of dysuria, frequency or incontinence MUSCULOSKELETAL: Negative for joint pain or swelling, back pain or muscle pain HEMATOLOGY/LYMPHOLOGY: Negative for prolonged bleeding, bruising easily or swollen nodes ENDOCRINE: Negative for cold or heat intolerance, polyuria, polydipsia and goiter PHYSICAL EXAM: BP 158/82 Pulse 71 Ht 6' 0 (1.83m) Wt 231 lb (104.8kg) BMI 31.32 kg/(m^2). General Appearance: Well appearing, alert, in no acute distress, well-hydrated, well nourished.. Eyes: Normal sclera Abdomen: Normal abdominal exam, Abdomen soft, non-tender. Bowel sounds normal. No masses, organomegaly, Positive findings: umbilical hernia. Assessment: Umbilical hernia without obstruction and without gangrene (primary encounter diagnosis) Atrial fibrillation, unspecified type (hcc) Plan: ASSESSMENT/PLAN: 1. Umbilical hernia without obstruction and without gangrene - ICD9: 553.1, ICD10: K42.9 (primary diagnosis) Since he is symptomatic desires to proceed with an umbilical herniorrhaphy. The procedure was reviewed with the patient in detail including the risks and complications inherent to the procedure. These include but are not limited to bleeding, infection, recurrence, other organ injury, anesthetic risks. The patient understood and was agreeable to proceed. 2. Atrial fibrillation, unspecified type (HCC) - ICD9: 427.31, ICD10: I48.91 Consult to cardiology regarding his atrial fibrillation and operative risk evaluation. - CONSULT TO CARDIOLOGY Medical Decision Making: Problems: Low: Stable chronic illness Moderate: New problem with uncertain prognosis Risk: Moderate: Moderate risk from testing/treatment Medical Decision Making Level: 4 - Moderate Shan Soto M.D., F.A.C.S. documented in this encounter [facility] 08-04-2022 Note [facility] 08-04-2022 History of Presen t illness Narrative Pt here for his INR pts Previous INR 2.4 Pts current dose 8 mg daily Pts INR today 2.5 Instructed pt to continue current dose recheck in 1 month Carlotta Nieto MA documented in this encounter [facility] 07-28-2022 Note [facility] 07-28-2022 History of Presen t illness Narrative Patient here for INR check. Last INR 3.1 on 07/21/22. Patient took 4 mg that day then 8 mg daily. Patient denies missing any doses. Patient's INR today was 2.4. Per conversation with Ryan Edwards CNP patient informed to continue coumadin 8 mg daily and recheck in 1 week. Patient verbalized understanding. La Zapata MA documented in this encounter [facility] 07-21-2022 Note [facility] 07-21-2022 History of Presen t illness Narrative Patient here for INR check. Last INR was 1.63 on 07/15/22, at that time patient was instructed to take coumadin 9 mg daily. Patient's INR today was 3.1. Per conversation with Ryan Edwards CNP patient informed to take coumadin 4 mg today then 8 mg daily and recheck in 1 week. La Zapata MA documented in this encounter [facility] 07-16-2022 Miscellaneous Notes Patient informed and scheduled for recheck on Thursday. La Zapata MA 9 daily and recheck on Thursday when he is back in [facility] Received fax stating patient's INR was 1.63 on 07/15/22. Please advise. La Zapata MA documented in this encounter [facility] 07-11-2022 Note [facility] 07-11-2022 History of Presen t illness Narrative Patient here for INR check. Last INR was 3.9 yesterday and Ryan had patient hold coumadin. Patient's INR today was 3.4. Spoke with Ryan Edwards CNP on the phone and she stated to have patient hold coumadin again today then take 8 mg Thursday, Thursday, Thursday, 9 mg Thursday and recheck on Thursday while he is in [place]. Written directions given to patient. La Zapata MA documented in this encounter [facility] 07-10-2022 Note [facility] 07-10-2022 History of Presen t illness Narrative Pt here for his INR pts Previous INR 2.4 Pts current dose 9 mg daily Pts INR today 3.9 Per CN instruction pt to hold his coumadin today and recheck tomorrow called pt let him know the instructions Carlotta Nieto MA documented in this encounter [facility] 06-30-2022 Note [facility] 06-26-2022 Note [facility] 06-26-2022 History of Presen t illness Narrative ESTABLISHED PATIENT OFFICE VISIT HPI Ru Workman is a 67 year old male who presents recently moved from [place]. Ho elevated psa. Bx in 2013 neg when psa was 5. Last psa check was 10.5. minimal luts. On no prostate meds. On coumadin for a fib. 06/26/22 - sp mri fusion bx. Path benign. Luts ok but would like to try something. Gland 99cc. No fever. No uti. LAB: Creatinine Date Value Ref Range Status 06/11/2022 1.05 0.73 - 1.22 mg/dL Final No results found for: PSA No results found for: UGLUC, UBILI, UKET, SPGR, UHB, UPH, UPROT, UROBIL, NITRITES, UWBC, UCOLAP MEDICATIONS: dilTIAZem (CARDIZEM) 120 mg tablet Take 1 tablet by mouth once daily. omega 1-vgd-vch-fish oil (FISH OIL) 100-160-1,000 mg cap Take by mouth. VIT B COMPLEX 100 COMBO NO.2 ORAL Take by mouth. vitamin D3-vit K1-vit MK4-MK7 50-500-1,500 mcg cap Take by mouth. Glucosamine Sulfate 500 mg cap Take 500 mg by mouth once daily. warfarin (COUMADIN) 4 mg tablet Take as instructed warfarin (COUMADIN) 5 mg tablet Take as instructed zoster RZV vaccine (SHINGRIX) 50 mcg/0.5 mL injection Repeat 2nd dose in 2-6 months. sildenafil (VIAGRA) 50 mg tablet Take 1 tablet by mouth as needed. 30-60 minutes before sexual intercourse. tamsulosin (FLOMAX) 0.4 mg Take 1 capsule by mouth once daily. 30 minutes after the same meal each day. REVIEW OF SYSTEMS Review of Systems Constitutional: Negative. Respiratory: Negative. Cardiovascular: Negative. Gastrointestinal: Negative. Genitourinary: Negative. Skin: Negative. Neurological: Negative. Psychiatric/Behavioral: Negative. HISTORIES PAST MEDICAL HISTORY Diagnosis Date A-fib (HCC) Personal history of malignant melanoma of skin FAMILY HISTORY Problem Relation Age of Onset Accidental Mother fire Diabetes Father Heart disease Father Hypertension Sister SOCIAL HISTORY Social History Tobacco Use Smoking status: Never Smokeless tobacco: Never Vaping Use Vaping Use: Never used Substance Use Topics Alcohol use: Yes Comment: 1-2 drinks daily Drug use: Never PHYSICAL EXAMINATION General appearance: Well appearing, alert, in no acute distress, and well-hydrated, well nourished Skin: Skin color, texture, turgor normal, no suspicious rashes or lesions Respiratory:+ effort Cardiovascular: Not examined GI: Normal abdominal exam, Abdomen soft, non-tender. No masses, organomegaly Musculoskeletal: Negative Neuro: Negative Genitourinary: not examined Impression: (R97.20) Elevated prostate specific antigen (PSA) (primary encounter diagnosis) (N40.1, N13.8) BPH with obstruction/lower urinary tract symptoms Plan: Trial flomax 6 months Psa prior Stan Tai Jr, MD 06/26/2022 documented in this encounter [facility] 06-23-2022 Note [facility] 06-23-2022 History of Presen t illness Narrative Patient identified by name and . Patient came in for nurse visit for INR after stopping his coumadin for a biopsy of his prostate on 06/18/2022. Patient started back on coumadin 06/20/2022 he took 9mg Thursday, thursday and thursday. Today patients INR was 1.1. Per CN patient to take 10mg today, 9mg thursday and Thursday, 10mg 9 mg the Thursday , Thursday and Thursday. Return to get rechecked Thursday. Patient received printed out calender with directions and voiced understanding. Nhi Cordova MA documented in this encounter [facility] 06-18-2022 Note HNO ID: [id number] Author: Vikki Ferreira APRN.BARBIE Service: ? Author Type: Nurse Practitioner Type: Progress Notes Filed: 06/18/2022 10:46 AM Note Text: HANDP completed on 06/11/2022 by Ryan Edwards APRN.CNP. [facility] 06-11-2022 Miscellaneous Notes Called pt let him know the results Carlotta Nieto MA ----- Message from Ryan Edwards APRN.DATA SYSTEMS MANAGER sent at 06/11/2022 1:01 PM EST ----- BMP and CBC unremarkable pt was non fasting documented in this encounter [facility] 06-11-2022 Note [facility] 06-11-2022 Instructions Ryan Edwards APRN.DATA SYSTEMS MANAGER - 06/11/2022 8:58 AM EST ASSESSMENT/PLAN: 1. Preoperative cardiovascular examination - ICD9: V72.81, ICD10: Z01.810 (primary diagnosis) - Normal exam today. Pt is optimized for procedure. - INR supra therapeutic today. Recommend stop coumadin today for surgery next week. Recommend resuming coumadin 12-24 hours after procedure if no complications. - CBC - BASIC METABOLIC PNL 2. Atrial fibrillation, unspecified type (HCC) - ICD9: 427.31, ICD10: I48.91 - Chronic stable. - INR (POC) - CBC - BASIC METABOLIC PNL 3. Elevated PSA - ICD9: 790.93, ICD10: R97.20 - biopsy scheduled 06/18/22. Ryan Edwards APRN.DATA SYSTEMS MANAGER documented in this encounter [facility] 06-11-2022 History of Presen t illness Narrative This note was created using [employer]. Subjective Ru Workman is a 67 year old male who presents for pre procedural evaluation. PMH Afib. Patient denies changes in health since last office visit. Reports feeling well. Denies concerns or complaints today. Reports hx of elevated PSA. Reports biopsy 2013. No change in urinary pattern. Last INR 05/28/22 2.4. he is taking coumadin 9 mg daily. Reports dx with afib several years ago. He denies having another episode after his first. Denies fever, chills, DOSHI, dizziness, cough, sob, cp, palpitations. I reviewed his past medical, surgical, social, and family histories today and updated chart. Allergies, chronic medications, and supplements were also reviewed and his list is now up to date. HPI: Type of Surgery: Prostate biopsy Date of Surgery: 06/18/22 Surgeon: Dr Hughes Place of Surgery: [facility] outpatient Functional Status of patient: Able to perform activities of daily living: Yes Able to walk up a flight of stairs: Yes Able to do heavy house work: Yes Associated Conditions: Does the patient have diabetes:No Does the patient have lung problems: No Does the patient have heart disease: Yes, atrial fib Has there been any problems with anesthesia in the past? No Is there any family history of allergic reactions to anesthesia in the past? No PAST MEDICAL HISTORY Diagnosis Date A-fib (HCC) Personal history of malignant melanoma of skin PAST SURGICAL HISTORY Procedure Laterality Date PAST SURGICAL HISTORY OF Open knee reconstruction: 5 knee surgeries on right, 2 on left PAST SURGICAL HISTORY OF arthroscopy left shoulder PAST SURGICAL HISTORY OF ORIF left wrist with screws. PAST SURGICAL HISTORY OF excision ganglion cysts PAST SURGICAL HISTORY OF nose repair TONSILLECTOMY & ADENOIDECTOMY <AGE 12 Tonsil/adenoidectomy VASECTOMY UNI/BI SPX W/POSTOP SEMEN EXAMS XCAPSL CTRC RMVL INSJ IO LENS PROSTH W/O ECP Cataract Removal: Left FAMILY HISTORY Problem Relation Age of Onset Accidental Mother fire Diabetes Father Heart disease Father Hypertension Sister Social History Tobacco Use Smoking status: Never Smokeless tobacco: Never Vaping Use Vaping Use: Never used Substance Use Topics Alcohol use: Yes Comment: 1-2 drinks daily Drug use: Never Current Outpatient Medications Medication Sig dilTIAZem (CARDIZEM) 120 mg tablet Take 1 tablet by mouth once daily. omega 3-smd-kbg-fish oil (FISH OIL) 100-160-1,000 mg cap Take by mouth. VIT B COMPLEX 100 COMBO NO.2 ORAL Take by mouth. vitamin D3-vit K1-vit MK4-MK7 50-500-1,500 mcg cap Take by mouth. Glucosamine Sulfate 500 mg cap Take 500 mg by mouth once daily. warfarin (COUMADIN) 4 mg tablet Take as instructed warfarin (COUMADIN) 5 mg tablet Take as instructed sildenafil (VIAGRA) 50 mg tablet Take 1 tablet by mouth as needed. 30-60 minutes before sexual intercourse. zoster RZV vaccine (SHINGRIX) 50 mcg/0.5 mL injection Repeat 2nd dose in 2-6 months. No current facility-administered medications for this visit. Review of Systems Constitutional: Negative for activity change, appetite change, chills, diaphoresis, fatigue, fever and unexpected weight change. HENT: Negative. Eyes: Negative for visual disturbance. Respiratory: Negative for cough, choking, chest tightness, shortness of breath and wheezing. Cardiovascular: Negative for chest pain, palpitations and leg swelling. Gastrointestinal: Negative for abdominal pain, constipation and diarrhea. Endocrine: Negative. Genitourinary: Negative. Negative for difficulty urinating. Musculoskeletal: Negative. Skin: Negative. Neurological: Negative for dizziness, tremors, light-headedness, numbness and headaches. Psychiatric/Behavioral: Negative for sleep disturbance. The patient is not nervous/anxious. Objective 06/11/22 0827 06/11/22 0900 BP: 136/80 146/80 Pulse: (!) 58 Resp: 18 Temp: 36.4 C (97.6 F) SpO2: 98% Weight: 106 kg (233 lb 9.6 oz) Height: 182.9 cm (6') Physical Exam Vitals and nursing note reviewed. Constitutional: Appearance: Normal appearance. Cardiovascular: Rate and Rhythm: Normal rate and regular rhythm. Pulses: Normal pulses. Heart sounds: Normal heart sounds. Pulmonary: Effort: Pulmonary effort is normal. No respiratory distress. Breath sounds: Normal breath sounds. No wheezing, rhonchi or rales. Skin: General: Skin is warm and dry. Neurological: Mental Status: He is alert and oriented to person, place, and time. Psychiatric: Mood and Affect: Mood normal. Behavior: Behavior normal. Thought Content: Thought content normal. Judgment: Judgment normal. Component Latest Ref Rng & Units 05/14/2022 05/28/2022 INR (POCT) 0.8 - 1.2 2.4 (H) 2.5 (H) Internal Quality Check Acceptable Acceptable Component Latest Ref Rng & Units 06/11/2022 INR (POCT) 0.8 - 1.2 3.2 (H) Internal Quality Check Acceptable ASSESSMENT/PLAN: 1. Preoperative cardiovascular examination - ICD9: V72.81, ICD10: Z01.810 (primary diagnosis) - Normal exam today. Pt is optimized for procedure. - INR supra therapeutic today. Recommend stop coumadin today for surgery next week as recommended per pt by his surgeon. Recommend resuming coumadin 12-24 hours after procedure if no complications. Pt to schedule for INR 3-4 days after resuming coumadin. - CBC - BASIC METABOLIC PNL 2. Atrial fibrillation, unspecified type (HCC) - ICD9: 427.31, ICD10: I48.91 - Chronic stable. - INR (POC) - CBC - BASIC METABOLIC PNL 3. Elevated PSA - ICD9: 790.93, ICD10: R97.20 - biopsy scheduled 06/18/22. Ryan Edwards APRN.DATA SYSTEMS MANAGER documented in this encounter [facility] 06-10-2022 Miscellaneous Notes Pt has apt 06/11/21 for surgical clearance Carlotta Nieto MA He will need to follow up with me within 30 days for presurgical evaluation if they are requiring me to sign off on him for his surgery Pt will be having a Prostate biopsy done on 06/18/22 does he need surgical clearance. He takes coumadin they did instructed him to stop his coumadin 6 days prior and then resume 2 days after. Carlotta Nieto MA documented in this encounter [facility] 06-09-2022 Miscellaneous Notes Last OV 02/26/22 Labs with previous PCP 12/20/21 listed in your last OV note 02/26/22 Patient phones requesting refills as follows: Requested Prescriptions Pending Prescriptions Disp Refills dilTIAZem (CARDIZEM) 120 mg tablet 90 tablet 1 Sig: Take 1 tablet by mouth once daily. Please review and advise. Carlotta Nieto MA documented in this encounter [facility] 06-06-2022 Miscellaneous Notes Pt is scheduled for MRI Fusion Bx MAC with Dr Hughes at [facility] on 06/18/22 @ 12:45 (10:45 arrival). Follow up with Dr Tai on 06/26/22 @ 11:00. Pt takes Coumadin- needs to stop 7 days prior, resume 2 days after biopsy. Medical clearance form faxed to pcp Ryan Edwards, gautam. [phone] on 06/03/22. Edel LOZA documented in this encounter [facility] 06-03-2022 Instructions Carlos Enrique Hughes MD - 06/03/2022 11:03 AM EST PATIENT INFORMATION: For prostate biopsy You may take Baby aspirin if you are on it Do not take high dose aspirin ,ibuprofen or other blood thinner type products for 1 week prior to the biopsy: Blood thinners can include also Advil, Motrin, Naprosyn, naproxen, Aleve, Plavix, Coumadin, etc. MEDICATION INFORMATION ASPIRIN and ADVIL can make you more prone to bleeding after surgery. Please STOP taking these medications at least (7) days before surgery or procedure. Medications can be resumed (1) days after the Prostate Biopsy procedure. NOTE: Please obtain approval to stop any prescribed medication from the prescribing doctor. Some common medications that contain ASPIRIN or act like Aspirin are to be avoided are as follows: This is a list of the medications you should avoid: Advil Clinoril (Sulindac) Naprosyn (Naproxen) Aggrenox Ecotrin NSAID (Non-Steroidal Agrylin Excedrin Anti-Inflammatory Drugs) Aleve (Naproxen) Fish Oil Pepto-Bismol [place] Gingko [place] Persantine (Dipyridamole) Anacin Glucosamine Chondroitin Plavix (Clopidogrel) Ascriptin Green Tea Plaquenil (Hydroxychloroquine) Aspergum Heparin Pletal (Cilostazol) Aspirin Herbals Ticlid (Ticlopidine) Benjamin Ibuprofen Trental (Pentoxyfylline) Bextra Indocin (Indomethacin) Vanquish Bufferin Midol Vitamin E (MVI) Coumadin (warfarin) Mobic/Meloxicam Multivitamin (MVI) MEDICATIONS you may SUBSTITUTE: Anacin 3 Plenadol Percocet* Datril Sine-Aide Excedrin PM Tylenol Fioricet* Tylenol with codeine* (*Denotes prescription needed to obtain these medications) documented in this encounter [facility] 06-03-2022 History of Presen t illness Narrative ESTABLISHED PATIENT OFFICE VISIT PATIENT INFO: Ru Workman 67 year old HPI 06/03/2022 CC: bx Patient saw Dr. Tai as below and had MRI at [facility] showing a couple of PI-RADS 3 lesions with 99 cc prostate Did okay under local anesthetic with original biopsy but for the fusion biopsy he would like twilight New primary physician is in [place] and that is who prescribes his Coumadin for A. fib Will need clearance to be off the Coumadin pre and post procedure Denies chest pain or shortness of breath Past Urology Hx: March 27, 2022-seen by Dr. Tai- 67 year old male recently moved from [place]. Ho elevated psa. Bx in 2013 neg when psa was 5. Last psa check was 10.5. minimal luts. On no prostate meds. On coumadin for a fib. No results found for: CREAT No results found for: PSA No results found for: COLOR, CLARITY, UGLUC, UBILI, UKET, SPGR, UHB, UPH, UPROT, UROBILINOGEN, NITRITES, LEUKEST Review of Systems Constitutional: Negative. HENT: Negative. Eyes: Negative. Respiratory: Negative. Cardiovascular: Negative. Gastrointestinal: Negative. Endocrine: Negative. Genitourinary: See HPI Musculoskeletal: Negative. Skin: Negative. Allergic/Immunologic: Negative. Neurological: Negative. Hematological: Negative. Psychiatric/Behavioral: Negative. I reviewed and confirmed ROS obtained by MA HISTORIES PAST MEDICAL HISTORY Diagnosis Date A-fib (HCC) Personal history of malignant melanoma of skin FAMILY HISTORY Problem Relation Age of Onset Accidental Mother fire Diabetes Father Heart disease Father Hypertension Sister SOCIAL HISTORY Social History Tobacco Use Smoking status: Never Smokeless tobacco: Never Substance Use Topics Alcohol use: Yes Comment: 1-2 drinks daily Drug use: Never MEDICATIONS: omega 1-kjx-lha-fish oil (FISH OIL) 100-160-1,000 mg cap Take by mouth. VIT B COMPLEX 100 COMBO NO.2 ORAL Take by mouth. vitamin D3-vit K1-vit MK4-MK7 50-500-1,500 mcg cap Take by mouth. Glucosamine Sulfate 500 mg cap Take 500 mg by mouth three times daily. warfarin (COUMADIN) 4 mg tablet Take as instructed warfarin (COUMADIN) 5 mg tablet Take as instructed dilTIAZem (CARDIZEM) 120 mg tablet Take 1 tablet by mouth once daily. sildenafil (VIAGRA) 50 mg tablet Take 1 tablet by mouth as needed. 30-60 minutes before sexual intercourse. zoster RZV vaccine (SHINGRIX) 50 mcg/0.5 mL injection Repeat 2nd dose in 2-6 months. Physical Exam HENT: Head: Normocephalic and atraumatic. Nose: Nose normal. Neck: Trachea: No tracheal deviation. Pulmonary: Effort: Pulmonary effort is normal. No respiratory distress. Musculoskeletal: General: No deformity. Normal range of motion. Cervical back: Normal range of motion. Skin: General: Skin is warm. Neurological: Mental Status: He is alert and oriented to person, place, and time. Gait: Gait is intact. Psychiatric: Mood and Affect: Mood and affect normal. Cognition and Memory: Memory normal. Risk/Benefit Discussion: Prostate Ultrasound With Needle Biopsy Prostate Patient was instructed to stop all aspirin type products 7 days prior to the procedure. I explained the options concerning the findings of a prostatic nodule both with and without an elevated PSA, as well as an elevated PSA without a prostate nodule. I specifically explained the possible complications, and the fact that a negative prostate biopsy does not definitely indicate that there is no prostate cancer present, but only that there was no malignancy found in the biopsy specimens. I explained the possibility of impotency and some incontinence, blood in the urine, stool/possible severe and admition to hospital , and/or semen. He may also experience frequency, urgency, and dysuria after the procedure. I explained the remote possibility of blood loss and the possibility of infection of the prostate and rectum post operatively/sepsis risk. The patient expressed an understanding with regard to possible benefits, risks, complications and outcome. FOLLOW UP (1s&1w; 3s): Return if symptoms worsen or fail to improve. ASSESSMENT/PLAN: 1. Elevated PSA - ICD9: 790.93, ICD10: R97.20 (primary diagnosis) Health and wellness-MRI fusion biopsy/MAC 2. BPH without urinary obstruction - ICD9: 600.00, ICD10: N40.0 Carlos Enrique Hughes Please note: This note has been produced using speech recognition software and may contain errors related to that system including grammar, punctuation, spelling, gender and words and phrases that may be inappropriate. documented in this encounter [facility] 06-02-2022 Instructions Lorraine Rosa APRN.CNP - 06/02/2022 11:31 AM EST Shan Soto MD General Surgery [facility] [address] [place] [address] Appointment:[phone] documented in this encounter [facility] 06-02-2022 History of Presen t illness Narrative Images from the original note were not included. CHIEF COMPLAINT: Ru Workman is a 67 year old male who presents for possible umbilical hernia, noticed it first 2 weeks ago. I reviewed past medical, surgical, social, and family histories today and updated chart. Allergies, chronic medications, and supplements were also reviewed. 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 It is also tender after he eats a larger meal and while straining for a bowel movement. He denies any recent trauma otherwise. He reports he is able to push the bulge back in. The history is provided by the patient. No language assistant was used. Abdominal Pain This is a new problem. The current episode started more than 1 week ago. The problem has not changed since onset.The pain is located in the periumbilical region. The pain is at a severity of 3/10. The pain is mild. Pertinent negatives include anorexia, fever, belching, diarrhea, flatus, hematochezia, melena, nausea, vomiting, constipation, dysuria, frequency, hematuria, headaches, arthralgias and myalgias. The symptoms are aggravated by certain positions, eating and bowel movements. The symptoms are relieved by certain positions. Past workup does not include GI consult, CT scan, ultrasound, surgery or barium enema. His past medical history does not include PUD, gallstones or GERD. PAST MEDICAL HISTORY Diagnosis Date A-fib (HCC) Personal history of malignant melanoma of skin PAST SURGICAL HISTORY Procedure Laterality Date PAST SURGICAL HISTORY OF Open knee reconstruction: 5 knee surgeries on right, 2 on left PAST SURGICAL HISTORY OF arthroscopy left shoulder PAST SURGICAL HISTORY OF ORIF left wrist with screws. PAST SURGICAL HISTORY OF excision ganglion cysts PAST SURGICAL HISTORY OF nose repair TONSILLECTOMY & ADENOIDECTOMY <AGE 12 Tonsil/adenoidectomy VASECTOMY UNI/BI SPX W/POSTOP SEMEN EXAMS XCAPSL CTRC RMVL INSJ IO LENS PROSTH W/O ECP Cataract Removal: Left Social History Tobacco Use Smoking status: Never Smokeless tobacco: Never Substance Use Topics Alcohol use: Yes Comment: 1-2 drinks daily Drug use: Never ALLERGIES No Known Allergies Family History Problem Relation Age of Onset Accidental Mother fire Diabetes Father Heart disease Father Hypertension Sister Current Outpatient Medications Medication Sig Dispense Refill omega 7-bcg-uwv-fish oil (FISH OIL) 100-160-1,000 mg cap Take by mouth. VIT B COMPLEX 100 COMBO NO.2 ORAL Take by mouth. vitamin D3-vit K1-vit MK4-MK7 50-500-1,500 mcg cap Take by mouth. Glucosamine Sulfate 500 mg cap Take 500 mg by mouth three times daily. warfarin (COUMADIN) 4 mg tablet Take as instructed 90 tablet 1 warfarin (COUMADIN) 5 mg tablet Take as instructed 90 tablet 1 zoster RZV vaccine (SHINGRIX) 50 mcg/0.5 mL injection Repeat 2nd dose in 2-6 months. 1 Each 1 dilTIAZem (CARDIZEM) 120 mg tablet Take 1 tablet by mouth once daily. 90 tablet 1 sildenafil (VIAGRA) 50 mg tablet Take 1 tablet by mouth as needed. 30-60 minutes before sexual intercourse. 15 tablet 3 No current facility-administered medications for this visit. Review of Systems Constitutional: Negative for chills, diaphoresis and fever. Respiratory: Negative. Cardiovascular: Negative. Gastrointestinal: Positive for abdominal pain. Negative for anorexia, constipation, diarrhea, flatus, hematochezia, melena, nausea and vomiting. Genitourinary: Negative for dysuria, frequency and hematuria. Musculoskeletal: Negative for arthralgias and myalgias. Neurological: Negative for headaches. BP 126/62 Pulse 60 Temp 97.7 Ht 6' 0 (1.83m) Wt 232 lb (105.2kg) SpO2 96% BMI 31.46 kg/(m^2). Physical Exam Vitals and nursing note reviewed. Constitutional: Appearance: Normal appearance. Cardiovascular: Rate and Rhythm: Normal rate. Pulmonary: Effort: Pulmonary effort is normal. Abdominal: General: Bowel sounds are normal. There is no distension. Palpations: Abdomen is soft. Tenderness: There is abdominal tenderness in the periumbilical area. There is no guarding. Hernia: A hernia is present. Hernia is present in the umbilical area. Comments: Approximate 2 finger gap of diastasis above umbilical with a slight bulge noted. Unable to reduce while laying. Some tenderness with palpation. No overlying skin changes. Skin: General: Skin is warm and dry. Findings: No bruising, ecchymosis or rash. Neurological: Mental Status: He is alert and oriented to person, place, and time. ASSESSMENT/PLAN: 1. Diastasis of rectus abdominis - ICD9: 728.84, ICD10: M62.08 (primary diagnosis) - CONSULT TO GENERAL SURGERY 2. Umbilical hernia without obstruction or gangrene - ICD9: 553.1, ICD10: K42.9 - Limit heavy lifting. - CONSULT TO GENERAL SURGERY New medication(s) prescribed today: None. Counseling completed in adopting health behaviors such as avoiding excessive alcohol use, avoid tobacco use, improve nutrition, and engage in physical activities. Copy of written care plan, clinical summary, treatment plan, new medications, goals, and self management requirements were given to patient. Lorraine Rosa APRN.CNP documented in this encounter [facility] 05-30-2022 Miscellaneous Notes Images from the original note were not included. Stan Tai Jr., MD [facility] Let pt know that mri prostate shows a couple lesions Please set up with dr. Hughes for mri fusion bx conference Patient informed and transferred to scheduling to set up appointment. Barber Long Ma documented in this encounter [facility] 05-28-2022 History of Presen t illness Narrative Pt here for his INR pts Previous INR 2.4 Pts current dose 9 mg daily Pts INR today 2.5 Per CN pt to continue his current dose and recheck in 1 month Carlotta Nieto MA documented in this encounter [facility] 05-27-2022 History of Presen t illness Narrative Radiology Service Progress Note DATE OF SERVICE: May 27, 2022 TIME: 8:55 AM PATIENT IDENTITY VERIFICATION COMPLETED USING TWO (2) STANDARD IDENTIFIERS: Name and Date of confirmed by patient verbally and Name and Date of confirmed by identification band. FALL SCREENING: Has the patient had 2 falls in the last year or 1 fall with injury or currently using an Ambulatory Assistive Device (Walker, Cane, Wheelchair, Crutches, etc.)? No PATIENT GENDER DATA: Male PATIENT RELEVANT IMPLANT DATA REVIEWED: Yes ALLERGIES: Reviewed and unchanged CONTRAST ALLERGY: NO. EXAM: MRI - CONTRAST TYPE: GROUP II PERIPHERAL IV DATA: Ambulatory: A peripheral IV was started in the Left antecubital site with a Angio cath: 22 gauge. RADIOLOGY DEPARTMENT: ; Exam(s) Completed: Body: Prostate SIGNATURE: RT Estefani(R) PATIENT NAME: Ru Workman DATE: May 27, 2022 TIME: 8:55 AM documented in this encounter [facility] 05-22-2022 History of Presen t illness Narrative Images from the original note were not included. Kyrie Pardo MD Orthopedic Sports Medicine Surgery [address] [facility] [address], [facility] [address] [place] [address] [address] [facility] , [facility] [address] [place] [id number] Orthopedic Surgery Sports Medicine Note NAME: Ru Workman : 1955 DATE: 05/22/2022 CHIEF COMPLAINT: Right elbow pain HPI: Ru Workman is a 67 year old male who presents from consultation from Ryan Edwards CMP for a right elbow injury. 5 days ago, the patient states he was woodworking when a piece fell off and he tried to catch it. He felt a pain and a pop in his anterior elbow. He was seen by the above practitioner who had concern for distal biceps tendon rupture and referred him to orthopedic surgery. Patient states his pain has significantly improved and he has not noticed no weakness. He does have a history of a left proximal biceps tendon rupture which was treated nonoperatively. He had no prior injuries or pain to his right elbow. He is right-hand dominant and is retired. Denies any numbness or tingling. I have reviewed and updated the patient's past medical history, past surgical history, social history, and family history. This is located both in the patient's note and their intake form that has been scanned into the medical record for today's visit. PAST MEDICAL HISTORY: ACTIVE PROBLEM LIST Enthesopathy of Knee Personal History of Malignant Melanoma of Skin Follow-Up Examination Following Surgery A-Fib (Hcc) CURRENT MEDICATIONS: Current Outpatient Medications Medication Sig omega 2-ehg-xeu-fish oil (FISH OIL) 100-160-1,000 mg cap Take by mouth. VIT B COMPLEX 100 COMBO NO.2 ORAL Take by mouth. vitamin D3-vit K1-vit MK4-MK7 50-500-1,500 mcg cap Take by mouth. Glucosamine Sulfate 500 mg cap Take 500 mg by mouth three times daily. warfarin (COUMADIN) 4 mg tablet Take as instructed warfarin (COUMADIN) 5 mg tablet Take as instructed zoster RZV vaccine (SHINGRIX) 50 mcg/0.5 mL injection Repeat 2nd dose in 2-6 months. dilTIAZem (CARDIZEM) 120 mg tablet Take 1 tablet by mouth once daily. sildenafil (VIAGRA) 50 mg tablet Take 1 tablet by mouth as needed. 30-60 minutes before sexual intercourse. warfarin (COUMADIN) 10 mg tablet Take as instructed No current facility-administered medications for this visit. ALLERGIES: Patient has no known allergies. SOCIAL HISTORY: Social History Tobacco Use Smoking status: Never Smokeless tobacco: Never Substance Use Topics Alcohol use: Yes Comment: 1-2 drinks daily Drug use: Never FAMILY HISTORY: FAMILY HISTORY Problem Relation Age of Onset Accidental Mother fire Diabetes Father Heart disease Father Hypertension Sister REVIEW OF SYSTEMS: As per HPI.? A 10 point review of systems was performed and was negative. PHYSICAL EXAM: Vital signs: Resp 18 Ht 182.9 cm (6') Wt 104.3 kg (230 lb) BMI 31.19 kg/m Constitutional: Well developed. Well nourished. Psychologic: Mood is appropriate. Appropriate affect. Head and Face: Normocephalic. No obvious deformities. External Ears Normal, no lesions or masses, grossly normal hearing. Eyes: Extraocular movements intact Pulmonary: Unlabored, normal effort. Cardiac: well perfused, extremities pink. Abdomen: Soft, not obese Skin: No rashes on exposed skin surface. Neuro: No focal neuro deficit, normal coordination, normal muscle tone Musculoskeletal: RUE: Inspection of the right elbow demonstrates ecchymosis over the distal biceps muscle belly. Negative hook test. 5 out of 5 strength with resisted elbow flexion and resisted elbow supination. Mild tenderness palpation over distal biceps muscle belly. Full range of motion of right elbow. 2+ radial pulse. Sensation intact light touch over the radial, median, ulnar nerve distribution. Warm well perfused lower extremity with capillary refill less than 2 seconds and sensation intact to light touch in terminal nerve distributions. Calf soft and easily compressible without clinical signs of DVT. No palpable popliteal lymphadenopathy IMAGIN views right elbow ordered, obtained, reviewed in office today demonstrating no acute bony abnormalities. There were no fractures or dislocations. ASSESSMENT/ PLAN: 67 year old male with right biceps muscle belly injury, strain status post injury 5 days ago -Patient has physical exam consistent with a biceps muscle strain. He has an intact biceps tendon on physical exam with no weakness. At this time, I will plan on treating him conservatively. He will work on maintaining his range of motion of his right elbow as his injury heals. [id number]-sij-bfvhmot Tylenol or ibuprofen as needed for pain control. He can follow-up with me on an as-needed basis if his symptoms worsen or do not improve. All of his questions were answered at today's visit. Kyrie Pardo MD 05/22/2022 3:25 PM This note was partially generated using [employer] system, and there may be some incorrect words, spellings, and punctuation that were not noted in checking the note before saving. documented in this encounter [facility] 05-21-2022 Miscellaneous Notes Appointment scheduled for 05/22/22 Susu Goldberg ----- Message from Tabitha Sharma sent at 05/21/2022 1:36 PM EST ----- Regarding: Orthopedics / Open Arm: Bicep Rupture (Kvng Muscle) Bulging Muscle / Unable To Schedule Dx Patient has been identified by name and Date of (Y/N): yes Patient: Ru Workman Date of : 1955 Previous Provider Seen: none Body Part(s) Identified: left arm Diagnosis/Reason For Visit: bicep rupture Reason for the call/escalation: unable to make appt If reason for call/escalation is discharge from ED/ER or Hospital, which facility was the patient seen at: no Was an appointment scheduled (Y/N): no Person calling if other than patient: no Return call to if other than patient: no Best contact number: [phone] Thank you, Tabitha Sharma May 21, 2022 1:36 PM documented in this encounter [facility] 05-20-2022 Instructions Lorraine Rosa APRN.CNP - 05/20/2022 2:[address] Feng Miller Orthopaedic Surgery [facility] Building [address] [place] [address] Driving Directions Appointment:[phone] documented in this encounter [facility] 05-20-2022 History of Presen t illness Narrative Images from the original note were not included. CHIEF COMPLAINT: Ru Workman is a 67 year old male, patient of ROXANA Edwards, who presents for right arm pain since Thursday. I reviewed past medical, surgical, social, and family histories today and updated chart. Allergies, chronic medications, and supplements were also reviewed. He reports he felt a slight tear in his right bicep last week but this past Thursday he went to catch something heavy and felt a tearing feeling and had instant sharp pain. He did have some bruising at the bottom of his bicep (on Coumadin). He feels that he tore his biceps because he did his left one in 2020. He never had surgery to repair it. He has been icing his arm as needed since Thursday but hasn't had to take anything OTC for pain. Only describes it as achy now. He denies any N/T in his arm or pain in his shoulder. He came in today to discuss if he should see orthopedics for it and perhaps seeing physical therapy to help strengthen his arms and shoulders. The history is provided by the patient. No language assistant was used. PAST MEDICAL HISTORY Diagnosis Date A-fib (HCC) Personal history of malignant melanoma of skin PAST SURGICAL HISTORY Procedure Laterality Date PAST SURGICAL HISTORY OF Open knee reconstruction: 5 knee surgeries on right, 2 on left PAST SURGICAL HISTORY OF arthroscopy left shoulder PAST SURGICAL HISTORY OF ORIF left wrist with screws. PAST SURGICAL HISTORY OF excision ganglion cysts PAST SURGICAL HISTORY OF nose repair TONSILLECTOMY & ADENOIDECTOMY <AGE 12 Tonsil/adenoidectomy VASECTOMY UNI/BI SPX W/POSTOP SEMEN EXAMS XCAPSL CTRC RMVL INSJ IO LENS PROSTH W/O ECP Cataract Removal: Left Social History Tobacco Use Smoking status: Never Smokeless tobacco: Never Substance Use Topics Alcohol use: Yes Comment: 1-2 drinks daily Drug use: Never ALLERGIES No Known Allergies Family History Problem Relation Age of Onset Accidental Mother fire Diabetes Father Heart disease Father Hypertension Sister Current Outpatient Medications Medication Sig Dispense Refill omega 0-vvz-sij-fish oil (FISH OIL) 100-160-1,000 mg cap Take by mouth. VIT B COMPLEX 100 COMBO NO.2 ORAL Take by mouth. vitamin D3-vit K1-vit MK4-MK7 50-500-1,500 mcg cap Take by mouth. Glucosamine Sulfate 500 mg cap Take 500 mg by mouth three times daily. warfarin (COUMADIN) 10 mg tablet Take as instructed 90 tablet 1 warfarin (COUMADIN) 4 mg tablet Take as instructed 90 tablet 1 warfarin (COUMADIN) 5 mg tablet Take as instructed 90 tablet 1 dilTIAZem (CARDIZEM) 120 mg tablet Take 1 tablet by mouth once daily. 90 tablet 1 sildenafil (VIAGRA) 50 mg tablet Take 1 tablet by mouth as needed. 30-60 minutes before sexual intercourse. 15 tablet 3 zoster RZV vaccine (SHINGRIX) 50 mcg/0.5 mL injection Repeat 2nd dose in 2-6 months. (Patient not taking: Reported on 03/27/2022) 1 Each 1 No current facility-administered medications for this visit. Review of Systems Constitutional: Negative. Respiratory: Negative. Cardiovascular: Negative. Gastrointestinal: Negative. Musculoskeletal: Negative for back pain, gait problem and joint swelling. Right bicep pain Skin: Negative. Neurological: Negative for numbness. Hematological: Does not bruise/bleed easily. BP 134/76 Pulse 63 Temp 98.2 Resp 18 Ht 6' 0 (1.83m) Wt 230 lb (104.3kg) SpO2 96% BMI 31.19 kg/(m^2). Physical Exam Vitals and nursing note reviewed. Constitutional: Appearance: Normal appearance. Cardiovascular: Rate and Rhythm: Normal rate. Pulses: Radial pulses are 2+ on the right side and 2+ on the left side. Pulmonary: Effort: Pulmonary effort is normal. Breath sounds: Normal air entry. Musculoskeletal: Right shoulder: Normal. No tenderness. Normal range of motion. Normal strength. Right upper arm: Deformity and tenderness present. No swelling, edema, lacerations or bony tenderness. Left upper arm: Normal. Arms: Skin: General: Skin is warm and dry. Neurological: Mental Status: He is alert and oriented to person, place, and time. Sensory: Sensation is intact. Motor: Motor function is intact. Psychiatric: Mood and Affect: Mood normal. Speech: Speech normal. Cognition and Memory: Cognition normal. ASSESSMENT/PLAN: 1. Right arm pain - ICD9: 729.5, ICD10: M79.601 (primary diagnosis) - Secondary to possible partial right bicep muscle tear. - Discussed rest, ice, compressions, elevation and OTC NSAIDS prn - Will refer to PT for strengthening exercises and ortho for evaluation - CONSULT TO ORTHOPAEDIC SURGERY - CONSULT TO PHYSICAL THERAPY 2. Biceps muscle tear, right, initial encounter - ICD9: 840.8, ICD10: S46.211A - See above - CONSULT TO ORTHOPAEDIC SURGERY - CONSULT TO PHYSICAL THERAPY New medication(s) prescribed today: None. Counseling completed in adopting health behaviors such as avoiding excessive alcohol use, avoid tobacco use, improve nutrition, and engage in physical activities. Copy of written care plan, clinical summary, treatment plan, new medications, goals, and self management requirements were given to patient. Lorraine Rosa APRN.CNP documented in this encounter [facility] 05-14-2022 History of Presen t illness Narrative Called pt let him know the instructions and to recheck in 2 weeks per CN Carlotta Nieto MA Continue 9 mg daily Patient here for INR check. Last INR was 3.9 on 05/09/22, at that time patient was instructed to hold coumadin that day then take 9 mg daily. Patient's INR today was 2.4. Patient is scheduled for recheck in 1 week. Please advise on dosing. La Zapata MA documented in this encounter [facility] 05-09-2022 History of Presen t illness Narrative Agree with MA documentation. April Ortiz APRN.BARBIE Patient here for INR check. Last INR was 7.4 on 05/07 at that time patient was told to hold coumadin until today. Patient's INR today was 3.9. Per conversation with April Ortiz CNP patient informed to hold coumadin today and then take 9 mg daily and recheck next Thursday or . Patient verbalized understanding. La Zapata MA documented in this encounter [facility] 05-07-2022 History of Presen t illness Narrative Pt here for his INR pts Previous INR 2.4 Pts current dose 10 mg daily except Thu and Thursday 9 mg Pts INR today 7.4 Per CN pt to hold his Coumadin today and tomorrow recheck on Thursday Carlotta Nieto MA Hold coumadin today and tomorrow. Recheck Thursday. documented in this encounter [facility] 04-07-2022 History of Presen t illness Narrative Pt here for his INR pts Previous INR 2.0 Pts current dose 9 mg Wed Sun 10 mg the rest of the week Pts INR today 2.4 Instructed pt to continue current dose recheck in 1 month Carlotta Nieto MA documented in this encounter [facility] 03-28-2022 History of Presen t illness Narrative Patient is here to check their INR Last INR: 2.2 Current Dose: 10 mg on Thursday, Thursday, , Thursday, and Thursday. 9 mg on Thursday and Thursday INR: 2.0 Per April Ortiz continue current dose and recheck in 2 weeks Edel Sellers MA documented in this encounter [facility] 03-27-2022 History of Presen t illness Narrative NEW PATIENT HISTORY AND PHYSICAL EXAM PATIENT INFO: Ru Workman 67 year old REFERRING PROVIDER: SHARON MCKEON PCP: Ryan Edwards APRN.DATA SYSTEMS MANAGER HPI Ru Workman is a 67 year old male recently moved from [place]. Ho elevated psa. Bx in 2013 neg when psa was 5. Last psa check was 10.5. minimal luts. On no prostate meds. On coumadin for a fib. Review of Systems Constitutional: Negative. Respiratory: Negative. Cardiovascular: Negative. Gastrointestinal: Negative. Genitourinary: Negative. Skin: Negative. Neurological: Negative. Psychiatric/Behavioral: Negative. LAB: No results found for: CREAT No results found for: PSA No results found for: UGLUC, UBILI, UKET, SPGR, UHB, UPH, UPROT, UROBIL, NITRITES, UWBC, UCOLAP MEDICATIONS: omega 4-kub-cid-fish oil (FISH OIL) 100-160-1,000 mg cap Take by mouth. VIT B COMPLEX 100 COMBO NO.2 ORAL Take by mouth. vitamin D3-vit K1-vit MK4-MK7 50-500-1,500 mcg cap Take by mouth. Glucosamine Sulfate 500 mg cap Take 500 mg by mouth three times daily. warfarin (COUMADIN) 10 mg tablet Take as instructed warfarin (COUMADIN) 4 mg tablet Take as instructed warfarin (COUMADIN) 5 mg tablet Take as instructed dilTIAZem (CARDIZEM) 120 mg tablet Take 1 tablet by mouth once daily. sildenafil (VIAGRA) 50 mg tablet Take 1 tablet by mouth as needed. 30-60 minutes before sexual intercourse. iv contrast (will be provided with radiology test) MRI Prostate Inject, intravenously, once for 1 dose. No IV access, insert saline lock prior to the beginning of sedation, infusion, injection of imaging exam. Discontinue saline lock post exam. If Pt. has a central line or IVAD, may access for administration according to line specific nursing protocol. Once exam is complete flush line and de-access according to line specific nursing protocol in the MR contrast administration guidelines link. zoster RZV vaccine (SHINGRIX) 50 mcg/0.5 mL injection Repeat 2nd dose in 2-6 months. (Patient not taking: Reported on 03/27/2022) HISTORIES PAST MEDICAL HISTORY Diagnosis Date A-fib (HCC) Personal history of malignant melanoma of skin FAMILY HISTORY Problem Relation Age of Onset Accidental Mother fire Diabetes Father Heart disease Father Hypertension Sister SOCIAL HISTORY Social History Tobacco Use Smoking status: Never Smokeless tobacco: Never Substance Use Topics Alcohol use: Yes Comment: 1-2 drinks daily Drug use: Never PHYSICAL EXAMINATION BP 146/92 Ht 182.9 cm (6') Wt 102.1 kg (225 lb) BMI 30.52 kg/m General appearance: Well appearing, alert, in no acute distress, and well-hydrated, well nourished Skin: Skin color, texture, turgor normal, no suspicious rashes or lesions Respiratory:+ effort Cardiovascular: Not examined GI: Normal abdominal exam, Abdomen soft, non-tender. No masses, organomegaly Musculoskeletal: normal ROM Neuro: No gross neurologic defecits Genitourinary: not examined ASSESSMENT: (Z03.89) Encounter for observation for other suspected diseases and conditions ruled out (primary encounter diagnosis) (R97.20) Elevated PSA PLAN: MRI prostate Let know results and plan Stan Tai Jr, MD documented in this encounter [facility] 03-17-2022 History of Presen t illness Narrative Patient here for INR check. Last INR was 1.9 on 03/10/22. Patient takes coumadin 9 mg on Thursday, Thursday and 10 mg all other days. Patient denies missing any doses. Patient's INR today was 2.2. Per conversation with Ryan Edwards CNP patient informed to continue current dose and recheck in 2 weeks. La Zapata MA documented in this encounter [facility] 03-10-2022 History of Presen t illness Narrative Pt here for his INR pts Previous INR 1.8 Pts current dose 11.25 mg Thu,Thu,,Thu 7.5 the rest of the wee Pts INR today 1.9 Per Cn instructions pt to 9 mg We Sat 10 mg the rest of the week Carlotta Nieto MA documented in this encounter [facility] 03-06-2022 History of Presen t illness Narrative Pt notified of new orders pt to take 1.5 tab (11.25mg) today and tomorrow, 1 tab Thursday and 1.5 tab on Thursday. Recheck on Thursday. documented in this encounter [facility] 02-26-2022 History of Presen t illness Narrative This note was created using [employer]. Subjective Ru Workman is a 66 year old male here today to establish care. PMH afib and melanoma. Previous PCP I reviewed her past medical, surgical, social, and family histories today and updated chart. Allergies, chronic medications, and supplements were also reviewed and her list is now up to date. Afib: Dx 1.5 yrs ago. He is taking coumadin 7.5 mg Sun, Thu, , Thursday. He takes 11.25 mg Thursday and Thursday. Reports 3 wks ago he was 2.5. reports he has only been on this since October. He was traveling and did not start taking the blood thinner until this spring. Denies any symptoms related to afib. Elevated PSA: since at least 2013. Had prostate biopsy in 01/25/2014 for elevated PSA of 5.7 in [place]. 12/20/21 PSA 10.5. Reports home BPs 120-130s/70s. He had labs completed in [place] with previous PCP on 12/20/21. CMP and CBC unremarkable. Sugar was mildly elevated at 112 HGB A1C 5.7%, Vit D normal, PSA elevated at 10.5, LIpids TC 214, LDL 139 others wnl Preventative: he is not interested in flu. He has had 2 COVID vaccine. Last colonoscopy 2017 in [place], reports one polyp. ALLERGIES Not on File Current Outpatient Medications Medication Sig Dispense Refill dilTIAZem (CARDIZEM) 120 mg tablet Take 120 mg by mouth four times daily. warfarin (COUMADIN) 7.5 mg tablet Take 7.5 mg by mouth daily as directed. No current facility-administered medications for this visit. ACTIVE PROBLEM LIST Enthesopathy of Knee Personal History of Malignant Melanoma of Skin Follow-Up Examination Following Surgery PAST MEDICAL HISTORY Diagnosis Date A-fib (HCC) Personal history of malignant melanoma of skin PAST SURGICAL HISTORY Procedure Laterality Date PAST SURGICAL HISTORY OF Open knee reconstruction: 5 knee surgeries on right, 2 on left PAST SURGICAL HISTORY OF arthroscopy left shoulder PAST SURGICAL HISTORY OF ORIF left wrist with screws. PAST SURGICAL HISTORY OF excision ganglion cysts PAST SURGICAL HISTORY OF nose repair TONSILLECTOMY & ADENOIDECTOMY <AGE 12 Tonsil/adenoidectomy VASECTOMY UNI/BI SPX W/POSTOP SEMEN EXAMS XCAPSL CTRC RMVL INSJ IO LENS PROSTH W/O ECP Cataract Removal: Left Social History Tobacco Use Smoking status: Never Smokeless tobacco: Never Substance Use Topics Alcohol use: Yes Comment: 1-2 drinks daily Drug use: Never Family History Problem Relation Age of Onset Accidental Mother fire Diabetes Father Heart disease Father Hypertension Sister Review of Systems Constitutional: Negative for activity change, appetite change, chills, diaphoresis, fatigue, fever and unexpected weight change. HENT: Negative. Eyes: Negative for visual disturbance. Respiratory: Negative for cough, choking, chest tightness, shortness of breath and wheezing. Cardiovascular: Negative for chest pain, palpitations and leg swelling. Gastrointestinal: Negative for abdominal pain, constipation and diarrhea. Endocrine: Negative. Genitourinary: Negative. Negative for difficulty urinating. Musculoskeletal: Negative for arthralgias and back pain. Skin: Negative for color change and rash. Neurological: Negative for dizziness, tremors, light-headedness, numbness and headaches. Psychiatric/Behavioral: Negative for sleep disturbance. The patient is not nervous/anxious. Objective BP 142/80 (BP Site: Left Arm, BP Position: Sitting, BP Cuff Size: Large Adult) Pulse 62 Temp 36.8 C (98.2 F) (Oral) Resp 18 Ht 182.9 cm (6') Wt 104.2 kg (229 lb 12.8 oz) SpO2 97% BMI 31.17 kg/m Physical Exam Vitals and nursing note reviewed. Constitutional: Appearance: Normal appearance. HENT: Head: Normocephalic and atraumatic. Mouth/Throat: Mouth: Mucous membranes are moist. Eyes: Pupils: Pupils are equal, round, and reactive to light. Cardiovascular: Rate and Rhythm: Normal rate and regular rhythm. Pulses: Normal pulses. Heart sounds: Normal heart sounds. Pulmonary: Effort: Pulmonary effort is normal. No respiratory distress. Breath sounds: Normal breath sounds. No wheezing, rhonchi or rales. Abdominal: General: Abdomen is flat. Bowel sounds are normal. Palpations: Abdomen is soft. Tenderness: There is no abdominal tenderness. Skin: General: Skin is warm and dry. Neurological: Mental Status: He is alert and oriented to person, place, and time. Psychiatric: Mood and Affect: Mood normal. Behavior: Behavior normal. Thought Content: Thought content normal. Judgment: Judgment normal. ASSESSMENT/PLAN: 1. Encounter for medical examination to establish care - ICD9: V70.9, ICD10: Z00.00 (primary diagnosis) - Counseled on healthy diet and regular exercise - Discussed need for and benefit of weight loss. BMI 31.17 kg/(m^2) - Counseled on limiting alcohol intake to 2 drinks per day - Depression screening tool completed and reviewed with patient. Based on score and interview, patient is not at risk for depression and recommended no further intervention at this time. - Follow up for annual exam in one year 2. Atrial fibrillation, unspecified type (HCC) - ICD9: 427.31, ICD10: I48.91 - Chronic, stable. Rate controlled. INR today 1.4, - instructed to take 1.5 tabs today, tomorrow and Thursday, 1 tab all other days and recheck Thursday - continue Diltiazem - referral to cardiology. - WARFARIN 7.5 MG TABLET - DILTIAZEM 120 MG TABLET - CONSULT TO CARDIOLOGY - INR FINGERSTICK B/O 3. Erectile dysfunction, unspecified erectile dysfunction type - ICD9: 607.84, ICD10: N52.9 - Chronic, stable. Continue viagra as needed - SILDENAFIL 50 MG TABLET 4. Elevated PSA - ICD9: 790.93, ICD10: R97.20 - chronic, increase elevation from previous. Noted in his records he brought with him today first elevation in 2013. He did have biopsy at that time. Most recent PSA 10.5. denies lower urinary tract symptoms. Referral to urology for evaluation and management - CONSULT TO UROLOGY 5. Need for shingles vaccine - ICD9: V04.89, ICD10: Z23 - VARICELLA-ZOSTER GLYCOE VACC-AS01B ADJ(PF) 50 MCG/0.5 ML IM SUSP, KIT - rx given to take to pharmacy Ryan Edwards APRN.DATA SYSTEMS MANAGER documented in this encounter [facility]* Diagnosis Atrial fibrillation, unspecified type (HCC)- Primary documented in this encounter [facility] note* Diagnosis Atrial fibrillation, unspecified type (HCC)- Primary documented in this encounter [facility] note* Diagnosis Encounter for observation for other suspected diseases and conditions ruled out- Primary Elevated PSA Elevated prostate specific antigen (PSA) documented in this encounter [facility] note* Diagnosis Atrial fibrillation, unspecified type (HCC)- Primary documented in this encounter [facility] note* Diagnosis Atrial fibrillation, unspecified type (HCC)- Primary documented in this encounter [facility] note* Diagnosis Atrial fibrillation, unspecified type (HCC)- Primary documented in this encounter [facility] note* Diagnosis Atrial fibrillation, unspecified type (HCC)- Primary documented in this encounter [facility] note* Diagnosis Atrial fibrillation, unspecified type (HCC)- Primary documented in this encounter [facility] note* Diagnosis Right arm pain- Primary Pain in limb Biceps muscle tear, right, initial encounter documented in this encounter [facility] note* Diagnosis Biceps muscle strain, right, initial encounter- Primary documented in this encounter [facility] note* Diagnosis Encounter for observation for other suspected diseases and conditions ruled out documented in this encounter [facility] note* Diagnosis Atrial fibrillation, unspecified type (HCC)- Primary documented in this encounter [facility] note* Diagnosis Diastasis of rectus abdominis- Primary Umbilical hernia without obstruction or gangrene Umbilical hernia without mention of obstruction or gangrene documented in this encounter [facility] note* Diagnosis Elevated PSA- Primary Elevated prostate specific antigen (PSA) BPH without urinary obstruction Hypertrophy of prostate without urinary obstruction and other lower urinary tract symptoms (LUTS) documented in this encounter [facility] note* Diagnosis Atrial fibrillation, unspecified type (HCC) Elevated prostate specific antigen (PSA) documented in this encounter [facility] note* Diagnosis Preoperative cardiovascular examination- Primary Pre-operative cardiovascular examination Atrial fibrillation, unspecified type (HCC) Elevated PSA Elevated prostate specific antigen (PSA) Elevated prostate specific antigen (PSA) documented in this encounter [facility] note* Diagnosis Elevated prostate specific antigen (PSA)- Primary BPH with obstruction/lower urinary tract symptoms Hypertrophy of prostate with urinary obstruction and other lower urinary tract symptoms (LUTS) documented in this encounter [facility] note* Diagnosis Atrial fibrillation, unspecified type (HCC)- Primary documented in this encounter [facility] note* Diagnosis Umbilical hernia without obstruction and without gangrene- Primary Atrial fibrillation, unspecified type (HCC) documented in this encounter [facility] note* Diagnosis Umbilical hernia without obstruction or gangrene- Primary Umbilical hernia without mention of obstruction or gangrene documented in this encounter [facility] note* Diagnosis Preoperative general physical examination- Primary Other specified pre-operative examination Atrial fibrillation, unspecified type (HCC) Vitamin D deficiency Unspecified vitamin D deficiency Screening for deficiency anemia Screening for other and unspecified deficiency anemia Encounter for screening for diabetes mellitus Screening for diabetes mellitus Screening for lipid disorders Screening for thyroid disorder Umbilical hernia without obstruction or gangrene Umbilical hernia without mention of obstruction or gangrene documented in this encounter [facility] note* Diagnosis Atrial fibrillation, unspecified type (HCC)- Primary Umbilical hernia without obstruction or gangrene Umbilical hernia without mention of obstruction or gangrene [facility]* Diagnosis Atrial fibrillation, unspecified type (HCC)- Primary Umbilical hernia without obstruction or gangrene Umbilical hernia without mention of obstruction or gangrene documented in this encounter [facility] note* Diagnosis Atrial fibrillation, unspecified type (HCC)- Primary documented in this encounter [facility] note* Diagnosis Atrial fibrillation, unspecified type (HCC)- Primary documented in this encounter [facility] note* Diagnosis Atrial fibrillation, unspecified type (HCC)- Primary documented in this encounter [facility] note* Diagnosis Hx of retinal detachment- Primary Personal history of other disorders of nervous system and sense organs documented in this encounter [facility] note* Diagnosis Atrial fibrillation, unspecified type (HCC) documented in this encounter [facility] note* Diagnosis Atrial fibrillation, unspecified type (HCC)- Primary documented in this encounter [facility] note* Diagnosis Atrial fibrillation, unspecified type (HCC)- Primary documented in this encounter [facility] note* Diagnosis Atrial fibrillation, unspecified type (HCC)- Primary documented in this encounter [facility] note* Diagnosis Elevated cholesterol- Primary Pure hypercholesterolemia documented in this encounter [facility] note* Diagnosis Atrial fibrillation, unspecified type (HCC)- Primary documented in this encounter [facility] note* Diagnosis Acute right ankle pain- Primary Atrial fibrillation, unspecified type (HCC) documented in this encounter [facility] note* Diagnosis Erectile dysfunction, unspecified erectile dysfunction type documented in this encounter [facility] note* Diagnosis Atrial fibrillation, unspecified type (HCC)- Primary Erectile dysfunction, unspecified erectile dysfunction type Elevated prostate specific antigen (PSA) documented in this encounter [facility] note* Diagnosis Injury of right Achilles tendon, initial encounter documented in this encounter [facility] note* Diagnosis Injury of right Achilles tendon, initial encounter- Primary Injury of right Achilles tendon, initial encounter documented in this encounter [facility] note* Diagnosis Preoperative general physical examination- Primary Other specified pre-operative examination Acute right ankle pain Injury of right Achilles tendon, subsequent encounter Olecranon bursitis, left elbow Injury of right Achilles tendon, initial encounter documented in this encounter [facility] note* Diagnosis Injury of right Achilles tendon, initial encounter- Primary Acute right ankle pain Injury of right Achilles tendon, initial encounter documented in this encounter [facility] note* Diagnosis Injury of right Achilles tendon, subsequent encounter- Primary Acute right ankle pain Injury of right Achilles tendon, initial encounter [facility] Diagnosis Elevated cholesterol- Primary Pure hypercholesterolemia documented in this encounter [facility] note* Diagnosis Cellulitis of left upper extremity- Primary Cellulitis and abscess of upper arm and forearm Septic bursitis of elbow, left Atrial fibrillation, unspecified type (HCC) Rupture of right Achilles tendon, initial encounter documented in this encounter [facility] for referral (narrative)* Diagnostic Procedure Only (Routine) - Pending Review Specialty Diagnoses / Procedures Referred By Contac t Referred To Contact XR IMAGING Diagnoses Biceps muscle strain, right, initial encounter Procedures XR ELBOW GENERAL 2V AP/LAT RIGHT RADEX ELBOW 2 VIEWS Kyrie Pardo MD [address] [address] Xr Imaging Referral ID Status Reason Start Date Expiration Date Visits Requested Visits Authorized [id number] Pending Review Auto-Generat ed Referral 05/22/2022 06/21/2023 1 1 [facility] for referral (narrative)* Diagnostic Procedure Only (Routine) - Closed Specialty Diagnoses / Procedures Referred By Contac t Referred To Contact XR IMAGING Diagnoses Acute right ankle pain Procedures XR ANKLE 2V AP/LAT RIGHT RADIOLOGIC EXAMINATION ANKLE 2 VIEWS Ryan Edwards APRN.DATA SYSTEMS MANAGER [address] [place] [address] [place] [address] Referral ID Status Reason Start Date Expiration Date V isits Requested Visits Authorized [id number] Closed Auto-Generate d Referral 02/10/2023 03/11/2024 1 1 * Transition of Care (Routine) - Ref Not Required Specialty Diagnoses / Procedures Referred By Contac t Referred To Contact Podiatry Diagnoses Acute right ankle pain Procedures CONSULT TO PODIATRY Ryan Edwards APRN.DATA SYSTEMS MANAGER [address] [place] [address] Stan Elizabeth [address] [place] [address] Referral ID Status Reason Start Date Expiration Date Visits Requested Visits Authorized [id number] Ref Not Required PCP Requested Referral 02/10/2023 05/11/2023 3 3 Electronically signed by Ryan Edwards DIRECTOR OF COMM[facility]ITY C[facility].DATA SYSTEMS MANAGER at 02/10/2023 8:20 AM EDT [facility] Summary Purpose Family History No Family History Records FoundNo Family History Records FoundNo Family History Records Found Advance Directives No Advanced Directives Records FoundDocuments on File Type Date Recorded Patient Housing Quality Standard Inspector Expl anation Advance Directive(s) 10/22/2022 11:02 AM Documents on File Type Date Recorded Patient Housing Quality Standard Inspector Expl anation Advance Directive(s) 10/22/2022 11:02 AM Reason for Referral Specialty Diagnoses / Procedures Referred By Contac t Referred To Contact Diagnoses Atrial fibrillation, unspecified type (HCC) Procedures CONSULT TO CARDIOLOGY OFFICE/OUTPATIENT NEW HIGH MDM 60-74 MINUTES Ryan Edwards, DIRECTOR OF COMMUNITY CENTER.DATA SYSTEMS MANAGER [address] [place] [address] [facility]ly [facility] [address] [place] [address] Referral ID Status Reason Start Date Expiration Date Visits Requested Visits Authorized [id number] Authorized PCP Requested Referral 2 02/26/2023 1 1 Specialty Diagnoses / Procedures Referred By Contac t Referred To Contact Urology / [facility] Department Diagnoses Elevated PSA Procedures CONSULT TO UROLOGY OFFICE/OUTPATIENT [facility] 60-74 MINUTES Ryan Edwards, DIRECTOR OF COMMUNITY CENTER.DATA SYSTEMS MANAGER [address] [place] [address] Stan Tai Jr., MD [address] [place] [address] Referral ID Status Reason Start Date Expiration Date Visits Requested Visits Authorized [id number] Authorized PCP Requested Referral 2 02/26/2023 1 1 Specialty Diagnoses / Procedures Referred By Contac t Referred To Contact MR IMAGING Diagnoses Encounter for observation for other suspected diseases and conditions ruled out Procedures MRI PROSTATE WO/W IVCON MRI PELVIS W/O & W/CONTRAST MATERIAL Stan Tai Jr., MD [address] [place] [address] Mr Imaging Referral ID Status Reason Start Date Expiration Date Visits Requested Visits Authorized [id number] Authorized Auto-Generat ed Referral 04/26/2023 1 1 Specialty Diagnoses / Procedures Referred By Contac t Referred To Contact [facility] Diagnoses Biceps muscle tear, right, initial encounter Right arm pain Procedures CONSULT TO PHYSICAL THERAPY PHYSICAL THERAPY EVALUATION HIGH COMPLEX 45 MINS Lorraine Rosa DIRECTOR OF COMMUNITY CENTER.DATA SYSTEMS MANAGER [address] [place] [address] [facility] [address] [address] Referral ID Status Reason Start Date Expiration Date Visits Requested Visits Authorized [id number] Authorized PCP Requested Referral Auto-Generate d Referral 05/20/2022 05/20/2023 99 99 Specialty Diagnoses / Procedures Referred By Contac t Referred To Contact Orthopedics / [facility] Department Diagnoses Biceps muscle tear, right, initial encounter Right arm pain Procedures CONSULT TO ORTHOPAEDIC SURGERY OFFICE/OUTPATIENT [facility] 60-74 MINUTES Lorraine Rosa DIRECTOR OF COMMUNITY CENTER.DATA SYSTEMS MANAGER [address] [place] [address] Feng Miller MD [address] [place] [address] Referral ID Status Reason Start Date Expiration Date Visits Requested Visits Authorized [id number] Authorized PCP Requested Referral 05/20/2022 05/20/2023 1 1 Referral ID Status Reason Start Date Expiration Date V isits Requested Visits Authorized [id number] Closed Auto-Generate d Referral 03/27/2022 04/26/2023 1 1 Specialty Diagnoses / Procedures Referred By Contac t Referred To Contact General Surgery Diagnoses Diastasis of rectus abdominis Umbilical hernia without obstruction or gangrene Procedures CONSULT TO GENERAL SURGERY OFFICE/OUTPATIENT [facility] MDM 60-74 MINUTES Lorraine Rosa DIRECTOR OF COMMUNITY CENTER.DATA SYSTEMS MANAGER [address] [place] [address] Shan Soto MD [address] [facility] [address] [place] [address] Referral ID Status Reason Start Date Expiration Date Visits Requested Visits Authorized [id number] Authorized PCP Requested Referral 06/02/2022 06/02/2023 1 1 Specialty Diagnoses / Procedures Referred By Contac t Referred To Contact Cardiology Diagnoses Atrial fibrillation, unspecified type (HCC) Procedures CONSULT TO CARDIOLOGY OFFICE/OUTPATIENT [facility] 60-74 MINUTES Shan Soto MD [address] [facility] [address] [place] [address] Trung Rey MD [address] [place] [address] Referral ID Status Reason Start Date Expiration Date Visits Requested Visits Authorized [id number] Authorized PCP Requested Referral 08/04/2022 11/02/2022 1 1 Specialty Diagnoses / Procedures Referred By Contac t Referred To Contact MR IMAGING Diagnoses Injury of right Achilles tendon, initial encounter Procedures MRI ANKLE WO IVCON RIGHT MRI ANY JT LOWER EXTREM W/O CONTRAST MATRL Rickey Woodruff, DPNaresh [address] [facility] [address] [place] [address] [place] [address] Referral ID Status Reason Start Date Expiration Date V isits Requested Visits Authorized [id number] Closed Auto-Generate d Referral 04/02/2023 05/01/2024 1 1 Specialty Diagnoses / Procedures Referred By Contac t Referred To Contact Orthopedics / [facility] DEPARTMENT Diagnoses Olecranon bursitis, left elbow Procedures CONSULT TO ORTHOPAEDICS OFFICE/OUTPATIENT [facility] 60-74 MINUTES Ryan Edwards APRN.DATA SYSTEMS MANAGER [address] [place] [address] Kyrie Peterson MD [address] [address] Referral ID Status Reason Start Date Expiration Date Visits Requested Visits Authorized [id number] Authorized PCP Requested Referral 3 04/15/2024 1 1 Additional Source Comments (unrecognized sect ion and content) No Status Records FoundNo Status Records FoundNo Status Records Found INFORMATION SOURCE (unrecogn ized section and content) DATE CREATED AUTHOR AUTHOR'S ORGANIZ ATION 12/31/2022 [facility] DATE CREATED AUTHOR AUTHOR'S ORGANIZ ATION 06/03/2023 [facility] Source Comments (unrecognize d section and content) In the event this informatio n is protected by the Federal Confidentiality of Alcohol and Drug Abuse Patient Records regulations: The Federal rules restrict any use of the information to criminally investigate or prosecute any alcohol or drug abuse patient.[facility] the event this information is protected by the Federal Confidentiality of Alcohol and Drug Abuse Patient Records regulations: The Federal rules restrict any use of the information to criminally investigate or prosecute any alcohol or drug abuse patient.[facility] HospitalIn the event this information is protected by the Federal Confidentiality of Alcohol and Drug Abuse Patient Records regulations: The Federal rules restrict any use of the information to criminally investigate or prosecute any alcohol or drug abuse patient.[facility] HospitalIn the event this information is protected by the Federal Confidentiality of Alcohol and Drug Abuse Patient Records regulations: The Federal rules restrict any use of the information to criminally investigate or prosecute any alcohol or drug abuse patient.[facility] HospitalIn the event this information is protected by the Federal Confidentiality of Alcohol and Drug Abuse Patient Records regulations: The Federal rules restrict any use of the information to criminally investigate or prosecute any alcohol or drug abuse patient.[facility] HospitalIn the event this information is protected by the Federal Confidentiality of Alcohol and Drug Abuse Patient Records regulations: The Federal rules restrict any use of the information to criminally investigate or prosecute any alcohol or drug abuse patient.[facility] HospitalIn the event this information is protected by the Federal Confidentiality of Alcohol and Drug Abuse Patient Records regulations: The Federal rules restrict any use of the information to criminally investigate or prosecute any alcohol or drug abuse patient.[facility] HospitalIn the event this information is protected by the Federal Confidentiality of Alcohol and Drug Abuse Patient Records regulations: The Federal rules restrict any use of the information to criminally investigate or prosecute any alcohol or drug abuse patient.[facility] HospitalIn the event this information is protected by the Federal Confidentiality of Alcohol and Drug Abuse Patient Records regulations: The Federal rules restrict any use of the information to criminally investigate or prosecute any alcohol or drug abuse patient.[facility] HospitalIn the event this information is protected by the Federal Confidentiality of Alcohol and Drug Abuse Patient Records regulations: The Federal rules restrict any use of the information to criminally investigate or prosecute any alcohol or drug abuse patient.[facility] HospitalIn the event this information is protected by the Federal Confidentiality of Alcohol and Drug Abuse Patient Records regulations: The Federal rules restrict any use of the information to criminally investigate or prosecute any alcohol or drug abuse patient.[facility] HospitalIn the event this information is protected by the Federal Confidentiality of Alcohol and Drug Abuse Patient Records regulations: The Federal rules restrict any use of the information to criminally investigate or prosecute any alcohol or drug abuse patient.[facility] HospitalIn the event this information is protected by the Federal Confidentiality of Alcohol and Drug Abuse Patient Records regulations: The Federal rules restrict any use of the information to criminally investigate or prosecute any alcohol or drug abuse patient.[facility] HospitalIn the event this information is protected by the Federal Confidentiality of Alcohol and Drug Abuse Patient Records regulations: The Federal rules restrict any use of the information to criminally investigate or prosecute any alcohol or drug abuse patient.[facility] HospitalIn the event this information is protected by the Federal Confidentiality of Alcohol and Drug Abuse Patient Records regulations: The Federal rules restrict any use of the information to criminally investigate or prosecute any alcohol or drug abuse patient.[facility] HospitalIn the event this information is protected by the Federal Confidentiality of Alcohol and Drug Abuse Patient Records regulations: The Federal rules restrict any use of the information to criminally investigate or prosecute any alcohol or drug abuse patient.[facility] HospitalIn the event this information is protected by the Federal Confidentiality of Alcohol and Drug Abuse Patient Records regulations: The Federal rules restrict any use of the information to criminally investigate or prosecute any alcohol or drug abuse patient.[facility] HospitalIn the event this information is protected by the Federal Confidentiality of Alcohol and Drug Abuse Patient Records regulations: The Federal rules restrict any use of the information to criminally investigate or prosecute any alcohol or drug abuse patient.[facility] HospitalIn the event this information is protected by the Federal Confidentiality of Alcohol and Drug Abuse Patient Records regulations: The Federal rules restrict any use of the information to criminally investigate or prosecute any alcohol or drug abuse patient.[facility] HospitalIn the event this information is protected by the Federal Confidentiality of Alcohol and Drug Abuse Patient Records regulations: The Federal rules restrict any use of the information to criminally investigate or prosecute any alcohol or drug abuse patient.[facility] HospitalIn the event this information is protected by the Federal Confidentiality of Alcohol and Drug Abuse Patient Records regulations: The Federal rules restrict any use of the information to criminally investigate or prosecute any alcohol or drug abuse patient.[facility] HospitalIn the event this information is protected by the Federal Confidentiality of Alcohol and Drug Abuse Patient Records regulations: The Federal rules restrict any use of the information to criminally investigate or prosecute any alcohol or drug abuse patient.[facility] HospitalIn the event this information is protected by the Federal Confidentiality of Alcohol and Drug Abuse Patient Records regulations: The Federal rules restrict any use of the information to criminally investigate or prosecute any alcohol or drug abuse patient.[facility] HospitalIn the event this information is protected by the Federal Confidentiality of Alcohol and Drug Abuse Patient Records regulations: The Federal rules restrict any use of the information to criminally investigate or prosecute any alcohol or drug abuse patient.[facility] HospitalIn the event this information is protected by the Federal Confidentiality of Alcohol and Drug Abuse Patient Records regulations: The Federal rules restrict any use of the information to criminally investigate or prosecute any alcohol or drug abuse patient.[facility] HospitalIn the event this information is protected by the Federal Confidentiality of Alcohol and Drug Abuse Patient Records regulations: The Federal rules restrict any use of the information to criminally investigate or prosecute any alcohol or drug abuse patient.[facility] HospitalIn the event this information is protected by the Federal Confidentiality of Alcohol and Drug Abuse Patient Records regulations: The Federal rules restrict any use of the information to criminally investigate or prosecute any alcohol or drug abuse patient.[facility] HospitalIn the event this information is protected by the Federal Confidentiality of Alcohol and Drug Abuse Patient Records regulations: The Federal rules restrict any use of the information to criminally investigate or prosecute any alcohol or drug abuse patient.[facility] HospitalIn the event this information is protected by the Federal Confidentiality of Alcohol and Drug Abuse Patient Records regulations: The Federal rules restrict any use of the information to criminally investigate or prosecute any alcohol or drug abuse patient.[facility] HospitalIn the event this information is protected by the Federal Confidentiality of Alcohol and Drug Abuse Patient Records regulations: The Federal rules restrict any use of the information to criminally investigate or prosecute any alcohol or drug abuse patient.[facility] HospitalIn the event this information is protected by the Federal Confidentiality of Alcohol and Drug Abuse Patient Records regulations: The Federal rules restrict any use of the information to criminally investigate or prosecute any alcohol or drug abuse patient.[facility] HospitalIn the event this information is protected by the Federal Confidentiality of Alcohol and Drug Abuse Patient Records regulations: The Federal rules restrict any use of the information to criminally investigate or prosecute any alcohol or drug abuse patient.[facility] HospitalIn the event this information is protected by the Federal Confidentiality of Alcohol and Drug Abuse Patient Records regulations: The Federal rules restrict any use of the information to criminally investigate or prosecute any alcohol or drug abuse patient.[facility] HospitalIn the event this information is protected by the Federal Confidentiality of Alcohol and Drug Abuse Patient Records regulations: The Federal rules restrict any use of the information to criminally investigate or prosecute any alcohol or drug abuse patient.[facility] HospitalIn the event this information is protected by the Federal Confidentiality of Alcohol and Drug Abuse Patient Records regulations: The Federal rules restrict any use of the information to criminally investigate or prosecute any alcohol or drug abuse patient.[facility] HospitalIn the event this information is protected by the Federal Confidentiality of Alcohol and Drug Abuse Patient Records regulations: The Federal rules restrict any use of the information to criminally investigate or prosecute any alcohol or drug abuse patient.[facility] HospitalIn the event this information is protected by the Federal Confidentiality of Alcohol and Drug Abuse Patient Records regulations: The Federal rules restrict any use of the information to criminally investigate or prosecute any alcohol or drug abuse patient.[facility] HospitalIn the event this information is protected by the Federal Confidentiality of Alcohol and Drug Abuse Patient Records regulations: The Federal rules restrict any use of the information to criminally investigate or prosecute any alcohol or drug abuse patient.[facility] HospitalIn the event this information is protected by the Federal Confidentiality of Alcohol and Drug Abuse Patient Records regulations: The Federal rules restrict any use of the information to criminally investigate or prosecute any alcohol or drug abuse patient.[facility] HospitalIn the event this information is protected by the Federal Confidentiality of Alcohol and Drug Abuse Patient Records regulations: The Federal rules restrict any use of the information to criminally investigate or prosecute any alcohol or drug abuse patient.[facility] HospitalIn the event this information is protected by the Federal Confidentiality of Alcohol and Drug Abuse Patient Records regulations: The Federal rules restrict any use of the information to criminally investigate or prosecute any alcohol or drug abuse patient.[facility] HospitalIn the event this information is protected by the Federal Confidentiality of Alcohol and Drug Abuse Patient Records regulations: The Federal rules restrict any use of the information to criminally investigate or prosecute any alcohol or drug abuse patient.[facility] HospitalIn the event this information is protected by the Federal Confidentiality of Alcohol and Drug Abuse Patient Records regulations: The Federal rules restrict any use of the information to criminally investigate or prosecute any alcohol or drug abuse patient.[facility] HospitalIn the event this information is protected by the Federal Confidentiality of Alcohol and Drug Abuse Patient Records regulations: The Federal rules restrict any use of the information to criminally investigate or prosecute any alcohol or drug abuse patient.[facility] HospitalIn the event this information is protected by the Federal Confidentiality of Alcohol and Drug Abuse Patient Records regulations: The Federal rules restrict any use of the information to criminally investigate or prosecute any alcohol or drug abuse patient.[facility] HospitalIn the event this information is protected by the Federal Confidentiality of Alcohol and Drug Abuse Patient Records regulations: The Federal rules restrict any use of the information to criminally investigate or prosecute any alcohol or drug abuse patient.[facility] HospitalIn the event this information is protected by the Federal Confidentiality of Alcohol and Drug Abuse Patient Records regulations: The Federal rules restrict any use of the information to criminally investigate or prosecute any alcohol or drug abuse patient.[facility] HospitalIn the event this information is protected by the Federal Confidentiality of Alcohol and Drug Abuse Patient Records regulations: The Federal rules restrict any use of the information to criminally investigate or prosecute any alcohol or drug abuse patient.[facility] HospitalIn the event this information is protected by the Federal Confidentiality of Alcohol and Drug Abuse Patient Records regulations: The Federal rules restrict any use of the information to criminally investigate or prosecute any alcohol or drug abuse patient.[facility]In the event this information is protected by the Federal Confidentiality of Alcohol and Drug Abuse Patient Records regulations: The Federal rules restrict any use of the information to criminally investigate or prosecute any alcohol or drug abuse patient.[facility] HospitalIn the event this information is protected by the Federal Confidentiality of Alcohol and Drug Abuse Patient Records regulations: The Federal rules restrict any use of the information to criminally investigate or prosecute any alcohol or drug abuse patient.[facility] HospitalIn the event this information is protected by the Federal Confidentiality of Alcohol and Drug Abuse Patient Records regulations: The Federal rules restrict any use of the information to criminally investigate or prosecute any alcohol or drug abuse patient.[facility] HospitalIn the event this information is protected by the Federal Confidentiality of Alcohol and Drug Abuse Patient Records regulations: The Federal rules restrict any use of the information to criminally investigate or prosecute any alcohol or drug abuse patient.[facility] HospitalIn the event this information is protected by the Federal Confidentiality of Alcohol and Drug Abuse Patient Records regulations: The Federal rules restrict any use of the information to criminally investigate or prosecute any alcohol or drug abuse patient.[facility] HospitalIn the event this information is protected by the Federal Confidentiality of Alcohol and Drug Abuse Patient Records regulations: The Federal rules restrict any use of the information to criminally investigate or prosecute any alcohol or drug abuse patient.[facility] HospitalIn the event this information is protected by the Federal Confidentiality of Alcohol and Drug Abuse Patient Records regulations: The Federal rules restrict any use of the information to criminally investigate or prosecute any alcohol or drug abuse patient.[facility] HospitalIn the event this information is protected by the Federal Confidentiality of Alcohol and Drug Abuse Patient Records regulations: The Federal rules restrict any use of the information to criminally investigate or prosecute any alcohol or drug abuse patient.[facility] HospitalIn the event this information is protected by the Federal Confidentiality of Alcohol and Drug Abuse Patient Records regulations: The Federal rules restrict any use of the information to criminally investigate or prosecute any alcohol or drug abuse patient.[facility] HospitalIn the event this information is protected by the Federal Confidentiality of Alcohol and Drug Abuse Patient Records regulations: The Federal rules restrict any use of the information to criminally investigate or prosecute any alcohol or drug abuse patient.[facility] HospitalIn the event this information is protected by the Federal Confidentiality of Alcohol and Drug Abuse Patient Records regulations: The Federal rules restrict any use of the information to criminally investigate or prosecute any alcohol or drug abuse patient.[facility] HospitalIn the event this information is protected by the Federal Confidentiality of Alcohol and Drug Abuse Patient Records regulations: The Federal rules restrict any use of the information to criminally investigate or prosecute any alcohol or drug abuse patient.[facility] HospitalIn the event this information is protected by the Federal Confidentiality of Alcohol and Drug Abuse Patient Records regulations: The Federal rules restrict any use of the information to criminally investigate or prosecute any alcohol or drug abuse patient.[facility] HospitalIn the event this information is protected by the Federal Confidentiality of Alcohol and Drug Abuse Patient Records regulations: The Federal rules restrict any use of the information to criminally investigate or prosecute any alcohol or drug abuse patient.[facility] HospitalIn the event this information is protected by the Federal Confidentiality of Alcohol and Drug Abuse Patient Records regulations: The Federal rules restrict any use of the information to criminally investigate or prosecute any alcohol or drug abuse patient.[facility] HospitalIn the event this information is protected by the Federal Confidentiality of Alcohol and Drug Abuse Patient Records regulations: The Federal rules restrict any use of the information to criminally investigate or prosecute any alcohol or drug abuse patient.[facility] HospitalIn the event this information is protected by the Federal Confidentiality of Alcohol and Drug Abuse Patient Records regulations: The Federal rules restrict any use of the information to criminally investigate or prosecute any alcohol or drug abuse patient.[facility] HospitalIn the event this information is protected by the Federal Confidentiality of Alcohol and Drug Abuse Patient Records regulations: The Federal rules restrict any use of the information to criminally investigate or prosecute any alcohol or drug abuse patient.[facility] HospitalIn the event this information is protected by the Federal Confidentiality of Alcohol and Drug Abuse Patient Records regulations: The Federal rules restrict any use of the information to criminally investigate or prosecute any alcohol or drug abuse patient.[facility] HospitalIn the event this information is protected by the Federal Confidentiality of Alcohol and Drug Abuse Patient Records regulations: The Federal rules restrict any use of the information to criminally investigate or prosecute any alcohol or drug abuse patient.[facility] HospitalIn the event this information is protected by the Federal Confidentiality of Alcohol and Drug Abuse Patient Records regulations: The Federal rules restrict any use of the information to criminally investigate or prosecute any alcohol or drug abuse patient.[facility] Care Teams (unrecognized sec tion and content) Extractor Puller Relationship Specialty Start Date End Date Ryan Edwards, DIRECTOR OF COMMUNITY CENTER.DATA SYSTEMS MANAGER [address] [place] [place] [address] PCP - General Internal Medicine 03/03/22 Extractor Puller Relationship Specialty Start Date End Date Ryan Edwards, DIRECTOR OF COMMUNITY CENTER.DATA SYSTEMS MANAGER [address] [place] [address] PCP - General Internal Medicine 03/03/22 Extractor Puller Relationship Specialty Start Date End Date Ryan Edwards, DIRECTOR OF COMMUNITY CENTER.DATA SYSTEMS MANAGER [address] [place] [address] PCP - General Internal Medicine 03/03/22 Extractor Puller Relationship Specialty Start Date End Date Ryan Edwards, DIRECTOR OF COMMUNITY CENTER.DATA SYSTEMS MANAGER [address] [facility] [place] [address] PCP - General Internal Medicine 03/03/22 Extractor Puller Relationship Specialty Start Date End Date Ryan Edwards, DIRECTOR OF COMMUNITY CENTER.DATA SYSTEMS MANAGER [address] [facility] [place] [address] PCP - General Internal Medicine 03/03/22 Extractor Puller Relationship Specialty Start Date End Date Ryan Edwards, DIRECTOR OF COMMUNITY CENTER.DATA SYSTEMS MANAGER [address] [facility] [place] [address] PCP - General Internal Medicine 03/03/22 Extractor Puller Relationship Specialty Start Date End Date Ryan Edwards, DIRECTOR OF COMMUNITY CENTER.DATA SYSTEMS MANAGER [address] [place] [address] PCP - General Internal Medicine 03/03/22 Extractor Puller Relationship Specialty Start Date End Date Ryan Edwards, DIRECTOR OF COMMUNITY CENTER.DATA SYSTEMS MANAGER [address] [place] [address] PCP - General Internal Medicine 03/03/22 Extractor Puller Relationship Specialty Start Date End Date Ryan Edwards, DIRECTOR OF COMMUNITY CENTER.DATA SYSTEMS MANAGER [address] [place] [address] PCP - General Internal Medicine 03/03/22 Extractor Puller Relationship Specialty Start Date End Date Ryan Edwards, DIRECTOR OF COMMUNITY CENTER.DATA SYSTEMS MANAGER [address] [place] [address] PCP - General Internal Medicine 03/03/22 Extractor Puller Relationship Specialty Start Date End Date Ryan Edwards, DIRECTOR OF COMMUNITY CENTER.DATA SYSTEMS MANAGER [address] [place] [address] PCP - General Internal Medicine 03/03/22 Extractor Puller Relationship Specialty Start Date End Date Ryan Edwards, DIRECTOR OF COMMUNITY CENTER.DATA SYSTEMS MANAGER [address] [place] [address] PCP - General Internal Medicine 03/03/22 Extractor Puller Relationship Specialty Start Date End Date Ryan Edwards, DIRECTOR OF COMMUNITY CENTER.DATA SYSTEMS MANAGER [address] [place] [address] PCP - General Internal Medicine 03/03/22 Extractor Puller Relationship Specialty Start Date End Date Ryan Edwards, DIRECTOR OF COMMUNITY CENTER.DATA SYSTEMS MANAGER [address] [facility] [place] [address] PCP - General Internal Medicine 03/03/22 Extractor Puller Relationship Specialty Start Date End Date Ryan Edwards, DIRECTOR OF COMMUNITY CENTER.DATA SYSTEMS MANAGER [address] [place] [address] PCP - General Internal Medicine 03/03/22 Extractor Puller Relationship Specialty Start Date End Date Ryan Edwards, DIRECTOR OF COMMUNITY CENTER.DATA SYSTEMS MANAGER [address] [place] [address] PCP - General Internal Medicine 03/03/22 Extractor Puller Relationship Specialty Start Date End Date Ryan Edwards, DIRECTOR OF COMMUNITY CENTER.DATA SYSTEMS MANAGER [address] [place] [address] PCP - General Internal Medicine 03/03/22 Extractor Puller Relationship Specialty Start Date End Date Ryan Edwards, DIRECTOR OF COMMUNITY CENTER.DATA SYSTEMS MANAGER [address] [place] [address] PCP - General Internal Medicine 03/03/22 Extractor Puller Relationship Specialty Start Date End Date Ryan Edwards, DIRECTOR OF COMMUNITY CENTER.DATA SYSTEMS MANAGER [address] [place] [address] PCP - General Internal Medicine 03/03/22 Extractor Puller Relationship Specialty Start Date End Date Ryan Edwards, DIRECTOR OF COMMUNITY CENTER.DATA SYSTEMS MANAGER [address] [facility] [place] [address] PCP - General Internal Medicine 03/03/22 [facility] [address] [place] [address] Cardiology 09/09/22 Extractor Puller Relationship Specialty Start Date End Date Ryan Edwadrs, DIRECTOR OF COMMUNITY CENTER.DATA SYSTEMS MANAGER [address] [place] [address] PCP - General Internal Medicine 03/03/22 [facility], [facility] [address] [place] [address] Cardiology 09/09/22 Extractor Puller Relationship Specialty Start Date End Date Ryan Edwards, DIRECTOR OF COMMUNITY CENTER.DATA SYSTEMS MANAGER [address] [facility] [place] [address] PCP - General Internal Medicine 03/03/22 [facility], [facility] [address] [place] [address] Cardiology 09/09/22 Extractor Puller Relationship Specialty Start Date End Date Ryan Edwards, DIRECTOR OF COMMUNITY CENTER.DATA SYSTEMS MANAGER [address] [facility] [place] [address] PCP - General Internal Medicine 03/03/22 [facility], [facility] [address] [place] [address] Cardiology 09/09/22 Extractor Puller Relationship Specialty Start Date End Date Ryan Edwards, DIRECTOR OF COMMUNITY CENTER.DATA SYSTEMS MANAGER [address] [facility] [place] [address] PCP - General Internal Medicine 03/03/22 [facility], [facility] [address] [place] [address] Cardiology 09/09/22 Extractor Puller Relationship Specialty Start Date End Date Ryan Edwards, DIRECTOR OF COMMUNITY CENTER.DATA SYSTEMS MANAGER [address] [place] [address] PCP - General Internal Medicine 03/03/22 [facility], [facility] [address] [place] [address] Cardiology 09/09/22 Extractor Puller Relationship Specialty Start Date End Date Ryan Edwards, DIRECTOR OF COMMUNITY CENTER.DATA SYSTEMS MANAGER [address] [place] [address] PCP - General Internal Medicine 03/03/22 [facility], [facility] [address] [place] [address] Cardiology 09/09/22 Extractor Puller Relationship Specialty Start Date End Date Ryan Edwards, DIRECTOR OF COMMUNITY CENTER.DATA SYSTEMS MANAGER [address] [place] [address] PCP - General Internal Medicine 03/03/22 [facility], [facility] [address] [place] [address] Cardiology 09/09/22 Extractor Puller Relationship Specialty Start Date End Date Ryan Edwards, DIRECTOR OF COMMUNITY CENTER.DATA SYSTEMS MANAGER [address] [place] [address] PCP - General Internal Medicine 03/03/22 [facility], [facility] [address] [place] [address] Cardiology 09/09/22 Extractor Puller Relationship Specialty Start Date End Date Ryan Edwards, DIRECTOR OF COMMUNITY CENTER.DATA SYSTEMS MANAGER [address] [place] [address] PCP - General Internal Medicine 03/03/22 [facility], [facility] [address] [place] [address] Cardiology 09/09/22 Extractor Puller Relationship Specialty Start Date End Date Ryan Edwards, DIRECTOR OF COMMUNITY CENTER.DATA SYSTEMS MANAGER [address] [place] [address] PCP - General Internal Medicine 03/03/22 [facility], [facility] [address] [place] [address] Cardiology 09/09/22 Extractor Puller Relationship Specialty Start Date End Date Ryan Edwards, DIRECTOR OF COMMUNITY CENTER.DATA SYSTEMS MANAGER [address] [place] [address] PCP - General Internal Medicine 03/03/22 [facility], [facility] [address] [place] [address] Cardiology 09/09/22 Extractor Puller Relationship Specialty Start Date End Date Ryan Edwards, DIRECTOR OF COMMUNITY CENTER.DATA SYSTEMS MANAGER [address] [place] [address] PCP - General Internal Medicine 03/03/22 [facility], [facility] [address] [place] [address] Cardiology 09/09/22 Extractor Puller Relationship Specialty Start Date End Date Ryan Edwards, DIRECTOR OF COMMUNITY CENTER.DATA SYSTEMS MANAGER [address] [place] [address] PCP - General Internal Medicine 03/03/22 [facility], [facility] [address] [place] [address] Cardiology 09/09/22 Extractor Puller Relationship Specialty Start Date End Date Ryan Edwards, DIRECTOR OF COMMUNITY CENTER.DATA SYSTEMS MANAGER [address] [place] [address] PCP - General Internal Medicine 03/03/22 [facility], [facility] [address] [place] [address] Cardiology 09/09/22 Extractor Puller Relationship Specialty Start Date End Date Ryan Edwards, DIRECTOR OF COMMUNITY CENTER.DATA SYSTEMS MANAGER [address] [facility] [place] [address] PCP - General Internal Medicine 03/03/22 [facility], [facility] [address] [place] [address] Cardiology 09/09/22 Extractor Puller Relationship Specialty Start Date End Date Ryan Edwards, DIRECTOR OF COMMUNITY CENTER.DATA SYSTEMS MANAGER [address] [facility] [place] [address] PCP - General Internal Medicine 03/03/22 [facility], [facility] [address] [place] [address] Cardiology 09/09/22 Extractor Puller Relationship Specialty Start Date End Date Ryan Edwards, DIRECTOR OF COMMUNITY CENTER.DATA SYSTEMS MANAGER [address] [facility] [place] [address] PCP - General Internal Medicine 03/03/22 [facility], [facility] [address] [place] [address] Cardiology 09/09/22 Extractor Puller Relationship Specialty Start Date End Date Ryan Edwards, DIRECTOR OF COMMUNITY CENTER.DATA SYSTEMS MANAGER [address] [facility] [place] [address] PCP - General Internal Medicine 03/03/22 [facility], [facility] [address] [place] [address] Cardiology 09/09/22 Extractor Puller Relationship Specialty Start Date End Date Ryan Edwards, DIRECTOR OF COMMUNITY CENTER.DATA SYSTEMS MANAGER [address] [facility] [place] [address] PCP - General Internal Medicine 03/03/22 [facility], [facility] [address] [place] [address] Cardiology 09/09/22 Extractor Puller Relationship Specialty Start Date End Date Ryan Edwards, DIRECTOR OF COMMUNITY CENTER.DATA SYSTEMS MANAGER [address] [facility] [place] [address] PCP - General Internal Medicine 03/03/22 [facility], [facility] [address] [place] [address] Cardiology 09/09/22 Extractor Puller Relationship Specialty Start Date End Date Ryan Edwards, DIRECTOR OF COMMUNITY CENTER.DATA SYSTEMS MANAGER [address] [place] [address] PCP - General Internal Medicine 03/03/22 [facility], [facility] [address] [place] [address] Cardiology 09/09/22 Extractor Puller Relationship Specialty Start Date End Date Ryan Edwards, DIRECTOR OF COMMUNITY CENTER.DATA SYSTEMS MANAGER [address] [facility] [place] [address] PCP - General Internal Medicine 03/03/22 [facility], [facility] [address] [place] [address] Cardiology 09/09/22 Extractor Puller Relationship Specialty Start Date End Date Ryan Edwards, DIRECTOR OF COMMUNITY CENTER.DATA SYSTEMS MANAGER [address] [place], [place] [id number] PCP - General Internal Medicine 03/03/22 [facility], [facility] [address] [facility] [address] [place] [address] Cardiology 09/09/22 Katya Ortiz RN Primary Care Data Recovery Planner 05/01/23 Extractor Puller Relationship Specialty Start Date End Date Ryan Edwards, DIRECTOR OF COMMUNITY CENTER.DATA SYSTEMS MANAGER [address] [place], [place] [address] PCP - General Internal Medicine 03/03/22 [facility], [facility] [address] [facility] [address] [place], [place] [id number] Cardiology 09/09/22 Katya Ortiz RN Primary Care Data Recovery Planner 05/01/23 Reason for Visit (unrecogniz ed section and content) Reason Comments Coumadin/INR Reason Comments Elevated PSA Specialty Diagnoses / Procedures Referred By Contac t Referred To Contact Urology / [facility] Department Diagnoses Elevated PSA Procedures CONSULT TO UROLOGY OFFICE/OUTPATIENT NEW HIGH MDM 60-74 MINUTES Ryan Edwards, DIRECTOR OF COMMUNITY CENTER.DATA SYSTEMS MANAGER [address] [place] [address] Stan Tai Jr., MD [address] [place] [address] Referral ID Status Reason Start Date Expiration Date V isits Requested Visits Authorized [id number] Closed PCP Requested Referral 02/26/2022 02/26/2023 1 1 Reason Comments right arm pain Reason Comments Appointment Reason Comments New No pain at this time Specialty Diagnoses / Procedures Referred By Contac t Referred To Contact MR IMAGING Diagnoses Encounter for observation for other suspected diseases and conditions ruled out Procedures MRI PROSTATE WO/W IVCON MRI PELVIS W/O & W/CONTRAST MATERIAL Stan Tai Jr., MD [address] [place] [address] Mr Imaging Referral ID Status Reason Start Date Expiration Date V isits Requested Visits Authorized [id number] Closed Auto-Generate d Referral 03/27/2022 04/26/2023 1 1 Reason Comments Results Reason Comments Mass X 2 weeks. By belly button Reason Comments PSA Reason Comments Surgery Scheduled Reason Comments Patient Question Reason Comments Elevated PSA Consult BX Results Reason Comments Results INR Reason Comments Nurse Visit Reason Comments Hernia Reason Comments surgical clearance Reason Comments Refill Request Reason Comments History of Retinal Detachment Both Eyes Reason Onset Date Comments Refill Request 12/04/2022 Reason Comments Lab Orders Reason Onset Date Comments ED outreach 02/04/2023 [facility] 02/01/2023 Specialty Diagnoses / Procedures Referred By Contac t Referred To Contact MR IMAGING Diagnoses Injury of right Achilles tendon, initial encounter Procedures MRI ANKLE WO IVCON RIGHT MRI ANY JT LOWER EXTREM W/O CONTRAST MATRL Rickey Woodruff DPM [address] [address] [place] [address] Referral ID Status Reason Start Date Expiration Date V isits Requested Visits Authorized [id number] Closed Auto-Generate d Referral 04/02/2023 05/01/2024 1 1 Reason Comments ER F/U Reason Comments New Reason Comments Established Patient MRI results , denies any pain, cast intact at this time, denies falls or walking on it. Follow Up MRI results , denies any pain, cast intact at this time, denies falls or walking on it. Reason Comments Orders FOR RECORDS PERTAINING TO PATIENTS WHO ARE OR HAVE BEEN ENROLLED IN A CHEMICAL DEPENDENCY/SUBSTANCEABUSE PROGRAM, SOME INFORMATION MAY BE OMITTED. This clinical summary was aggregated from multiple sources. Caution should be exercised in using it in the provision of clinical care. This summary normalizes information from multiple sources, and as a consequence, information in this document may materially change the coding, format and clinical context of patient data. In addition, data may be omitted in some cases. CLINICAL DECISIONS SHOULD BE BASED ON THE PRIMARY CLINICAL RECORDS. [employer] provides no warranty or guarantee of the accuracy or completeness of information in this document.
[2023-06-05 15:12] LABS: Anion Gap 8 (5-15); BUN 15 mg/dL (7-18); BUN/Creat Ratio 12.4 RATIO (10-20); Calcium,Total 10.3 mg/dL (8.5-10.1); Chloride 112 mmol/L (98-107); Creatinine, Serum 1.21 mg/dL (0.70-1.30); EST Glomerular Filtration Rate 63 mL/min (>60); Est Glom Filt Rate - Afr Amer 77 mL/min (>60); Glucose 111 mg/dL (74-106); Potassium 3.7 mmol/L (3.5-5.1); Sodium Level 144 mmol/L (136-145); Thyroid Stim Hormone (TSH) 2.49 uIU/mL (0.358-3.74)
== END | disposition home or self-care (01) ==
LOC: LAB 14:06
PROVIDERS: PCP Nurse Practitioner Adult Health; Referring Provider Nurse Practitioner Gerontology; Visit Provider Nurse Practitioner Gerontology
DX: I10 Essential (primary) hypertension (principal); R06.09 Other forms of dyspnea; R53.83 Other fatigue
CPT/HCPCS: 36415; 80048; 83880; 84443; 85025

== ENCOUNTER → 2024-11-11 | Outpatient (CLI) | payer MEDICARE, SELFPAY ==
[2024-11-11 13:18] LABS: Anion Gap 14 (5-15); BUN 25 mg/dL (4-19); BUN/Creat Ratio 19.5 RATIO (10-20); Calcium,Total 10.4 mg/dL (7.6-11.0); Carbon Dioxide 20.9 mmol/L (21.0-32.0); Chloride 105 mmol/L (98-108); EST Glomerular Filtration Rate 59 (>60); Glucose 115 mg/dL (70-99); Potassium 3.4 mmol/L (3.3-5.1); Sodium Level 140 mmol/L (133-145)
--- OUTSIDE RECORDS SUMMARY | 2024-11-11 19:00 | XMS RPT_ITS | CCD ---
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 Rossi Attending Provider Andrews, Dr. Rossi Referring Provider Andrews, Dr. Rossi Other Provider Jerry SCHMIDT, TESTING LEAD-C Ryan Primary Care Provider Enid Sparrow Attending Unavailable Care Physician, No Primary Referring Unava ilable Care Physician, No Primary Primary Care Unava ilable Care Physician, No Primary Primary Care Unava ilable Courtney Mackenzie Attending Unavailable AndrewsEnid malagon Attending Unavailable AndrewsEnid malagon Consulting Unavailable Ryan Edwards NP Primary Care Unavailable AndrewsEnid malagon Referring Unavailable Enid Sparrow Attending Unavailable Ryan Edwards NP Primary Care Unavailable Enid Sparrow Referring Unavailable Katya Ortiz RN Unavailable Unavailable Jerry SCHMIDT, TESTING LEAD-C Ryan Primary Care Provider Venus Martin Attending Provider Unavailable Jerry SCHMIDT, TESTING LEAD-C Ryan Referring Provider Jamal TESTING LEAD, TESTING LEAD-C Venus Attending Provider Katya Ortiz RN Unavailable Unavailable Jerry NON DESTRUCTIVE TESTING ENGINEER.BARBIE, Ryan M Primary Care Provider Pancho Pino MD Unavailable Group, [facility] Unavailable Unavailable JERRY, RYAN M Primary Care Unavailable EZIO RICHARDSON Attending Unavailable JERRY, RYAN M Primary Care Unavailable LYSSA COLÓN Attending Unavailable JERRY, RYAN M Primary Care Unavailable EZIO RICHARDSON Attending Unavailable ILEANA QUIROZ Referring Unavailable JERRY, RYAN M Primary Care Unavailable ILEANA QUIROZ Attending Unavailable JERRY, RYAN M Primary Care Unavailable MARCIN MONET Attending UnavailILEANA Brush Referring Unavailable JERRY, RYAN M Primary Care Unavailable STAN TAI JR Attending UnavailSTAN Michele JR Referring Unavailrandy Quiroz MD, PhD, Ileana Unavailable Lyssa Colón MD Unavailable BRITTNEE NAPIER Admitting Unavailable STAN GORMAN Attending Unavailable TABITHA MARTINS Referring Unava ilable JERRY, RYAN M Primary Care Unavailable AMBER MOREAU Unavailable Levi BAUMANN, Maty Unavailable JERRY, RYAN M Primary Care Unavailable JERRY, RYAN M Primary Care Unavailable JERRY, RYAN M Primary Care Unavailable WILIAM GEORGE Attending Unavailable JERRY, RYAN M Primary Care Unavailable JERRY, RYAN M Referring Unavailable JERRY, RYAN M Attending Unavailable JERRY, [...] Care Unavailable JERRY, RYAN M Referring Unavailable PANCHO PINO Attending Unavailable JERRY, RYAN M Primary Care Unavailable PANCHO PINO Referring Unavailable JERRY, RYAN M Primary Care Unavailable JERRY, RYAN M Primary Care Unavailable PANCHO PINO Referring Unavailable ALBINA EDWARDSE M Primary Care Unavailable PANCHO PINO Referring Unavailable ALBINA EDWARDSE M Primary Care Unavailable PANCHO PINO Referring Unavailable ALBINA EDWARDSE M Primary Care Unavailable PANCHO PINO Referring Unavailable ALBINA EDWARDSE M Primary Care Unavailable WILIAM GEORGE Attending Unavailable ALBINA EDWARDSE M Primary Care Unavailable SELF Referring Unavailable PANCHO PINO Attending Unavailable JERRY YRAN M Primary Care Unavailable JERRY, RYAN M Referring Unavailable JERRY, RYAN M Primary Care Unavailable JERRY, RYAN M Referring Unavailable JERRY RYAN M Primary Care Unavailable JERRY, RYAN M Referring Unavailable JERRY, RYNA M Primary Care Unavailable JERRY, RYAN M Referring Unavailable JERRY, RYAN M Primary Care Unavailable JERRY, RYAN M Primary Care Unavailable SELF Referring Unavailable JERRY, RYAN M Primary Care Unavailable JERRY, RYAN M Referring Unavailable JERRY RYAN M Primary Care Unavailable SELF Referring Unavailable ALBINA EDWARDSE M Primary Care Unavailable PANCHO PINO Referring Unavailable ALBINA EDWARDSE M Primary Care Unavailable ALBINA EDWARDSE M Primary Care Unavailable JERRY, RYAN M Referring Unavailable TABITHA MARTINS Attending Unava ilable ALBINA EDWARDSE M Primary Care Unavailable JERRY, RYAN M Primary Care Unavailable PANCHO PINO Attending Unavailable PANCHO PINO Admitting Unavailable JERRY, RYAN M Primary Care Unavailable JERRY, RYAN M Primary Care Unavailable PANCHO PINO Referring Unavailable JERRY, RYAN M Primary Care Unavailable STAN TAI JR Referring Unavaila ble ALBINA EDWARDSE M Primary Care Unavailable SELF Referring Unavailable Jerry TESTING LEAD-CRyan Primary Care Provider [phone] Ryan Palmer Referring Provider Venus Hernández Attending Provider [phone] Medications Current Medications Medication Drug Class(es) Dates Sig (Normalized) Sig (Original) acetaminophen 325 mg / oxyCODONE hydrochloride 5 mg oral tablet (6 sources) Opioid Agonist Start: 09-07-2023 End: 09-10-2023 take 1 tablet by mouth every eight hours as needed for pain oxyCODONE-acetami nophen (PERCOCET) 5-325 mg tablet Indications: Synovial cyst of left knee , Effusion of left knee Take 1 tablet by mouth every 8 hours as needed for pain for up to 3 days. 9 tablet 0 09/07/2023 09/10/2023 Active Start: 02-01-2023 End: 02-04-2023 take 1 tablet by mouth every six hours as needed for pain oxyCODONE-acetaminophen (PERCOCET) 5-325 mg tablet Indications: Acute gout of right ankle, unspecified cause Take 1 tablet by mouth every 6 hours as needed for pain for up to 3 days. 12 tablet 0 02/01/2023 02/04/2023 Active Start: 01-17-2021 End: 08-27-2022 Oxycodone-Acetaminophen (Per cocet) 5-325 mg tablet Discontinued 1 {tbl} PO EVERY 6 HOURS as needed for pain 12 3 0 January 17, 2021 August 27, 2022 8:14am Urolithiasis Urinary calculus, unspecified Start: 10-10-2003 End: 02-26-2022 PERCOCET 5/325MG TABLET one to two tabs every 4-6 hours as need for pain 40 0 10/10/2003 02/26/2022 Discontinued Comment on above: one to two tabs ever y 4-6 hours as need for pain Take 1 tablet by gildardo th every 6 hours as needed for pain for up to 3 days. amoxicillin 875 mg / clavulanate 125 mg oral tablet (4 sources) Penicillin-class Antibacterial Start: 3 End: 3 take 1 tablet by mouth twice daily amoxicillin-clavul anate potassium (AUGMENTIN) 875-125 mg per tablet Indications: Cellulitis of left upper extremity , Septic bursitis of elbow, left Take 1 tablet by mouth two times a day for 4 days. 8 tablet 0 05/07/2023 05/11/2023 Active Comment on above: Take 1 tablet by gildardo th two times a day for 10 days. Take 1 tablet by gildardo th two times a day for 4 days. benoxinate hydrochloride 4 mg/ml / fluorescein sodium 2.5 mg/ml ophthalmic solution (2 sources) Diagnostic Dye Start: 4 End: fluorescein-benoxi nancy 0.25-0.4 % 1 Drop (FLURESS) Start: 12-04-2022 End: 12-04-2022 fluorescein-benoxinate 0.25- 0.4 % 1 Drop (FLURESS) cephalexin 500 mg oral capsule (1 source) Cephalosporin Antibacterial Start: 03-23-2023 End: 03-30-2023 take 1 capsule by mouth three times daily cephALEXin (KEFLEX) 500 mg capsule Take 1 capsule by mouth three times a day for 7 days. 21 capsule 0 03/23/2023 03/30/2023 Active Comment on above: Take 1 capsule by [facility] three times a day for 7 days. cholecalciferol 0.125 mg oral tablet (6 sources) Vitamin D Start: 09-08-2022 take 1 tablet by mouth once daily Cholecalciferol (Vitamin D3) 125 mcg (5,000 unit) tablet Active 250 ug PO DAILY September 08, 2022 9:13am Start: 08-27-2022 End: 09-08-2022 take 1 tablet by mouth once daily Cholecalciferol (Vitamin D3) 125 mcg (5,000 unit) tablet Discontinued 125 ug PO DAILY August 27, 2022 12:00am September 08, 2022 9:14am docusate sodium 100 mg oral capsule (8 sources) Start: 10-14-2022 End: 12-08-2022 take 1 capsule by mouth twice daily docusate sodium (COLACE) 100 mg capsule Indications: Umbilical hernia without obstruction and without gangrene Take 1 capsule by mouth twice daily. 28 capsule 0 10/14/2022 12/08/2022 Discontinued Comment on above: Take 1 capsule by [facility] twice daily. iv contrast (will be provided with radiology test) (2 sources) Start: 03-27-2022 End: 03-28-2022 iv contrast (will be provided with radiology [...] in the MR contrast administration guidelines link. 1 Each 0 03/27/2022 03/28/2022 Active Comment on above: MRI Prostate Inject, intravenously, once for 1 [...] in the MR contrast administration guidelines link. lactobacillus rhamnosus gg [id number] unt oral capsule (20 sources) Start: 04-30-2023 End: 05-14-2023 lactobacillus rhamnosus (CULTURELLE) 10 billion cell capsule Take 2 capsules by mouth two times a day for 14 days. 56 capsule 04/30/2023 Active Comment on above: Take 2 capsules by m outh two times a day for 14 days. loperamide hydrochloride 2 mg oral capsule (20 sources) Opioid Agonist Start: 04-30-2023 End: 05-07-2023 take 1 capsule by mouth every eight hours as needed loperamide (IMODIUM) 2 mg cap(s) Take 1 capsule by mouth three times a day as needed for diarrhea for up to 7 days. 21 capsule 04/30/2023 2:43 PM EST 04/30/2023 Active Comment on above: Take 1 capsule by mo [facility] three times a day as needed for diarrhea for up to 7 days. metoprolol tartrate 25 mg oral tablet (20 sources) beta-Adrenergic Bryan Start: 11-11-2024 take 1 tablet by mouth twice daily Metoprolol Tartrate 25 mg tablet Active 25 mg PO TWICE A DAY 60 November 11, 2024 12:00am Start: 04-30-2023 End: 06-05-2023 take 1 tablet by mouth twice daily Metoprolol Succinate 50 mg tablet extended release 24 hr Discontinued 50 mg PO TWICE A DAY 180 May 22, 2023 1:00am June 05, 2023 2:20pm Comment on above: Take 1 tablet by gildardo th two times a day. omega 3-ecg-ixw-fish oil (FISH OIL) 100-160-1,000 mg cap (20 sources) omega 3-dha-epa- fish oil (FISH OIL) 100-160-1,000 mg cap Take by mouth. Active omega 3-dha-epa- fish oil (FISH OIL) 100-160-1,000 mg cap Take by mouth. 0 Suspended omega 3-dha-epa- fish oil (FISH OIL) 100-160-1,000 mg cap Take by mouth. 0 Active Comment on above: Take by mouth. ondansetron 8 mg oral tablet (20 sources) Serotonin-3 Receptor Antagonist Start: take 1 tablet by mouth every eight hours as needed ondansetron (ZOFRAN) 8 mg tablet Take 1 tablet by mouth every 8 hours as needed for nausea/vomiting. 12 tablet 1 05/26/2023 Active Start: 01-17-2021 End: 08-27-2022 take 1 tablet by mouth every six hours as needed for nausea and vomiting Ondansetron 4 mg tablet,disintegrating Discontinued 4 mg PO EVERY 6 HOURS as needed for nausea and vomiting 10 0 January 17, 2021 12:00am August 27, 2022 8:14am Comment on above: Take 1 tablet by gildardo th every 8 hours as needed for nausea/vomiting. oxyCODONE hydrochloride 5 mg oral tablet (1 source) Opioid Agonist Start: End: take 1 tablet by mouth every eight hours as needed for pain oxyCODONE IR (ROXICODONE) 5 mg immediate release tablet Indications: Umbilical hernia without obstruction and without gangrene Take 1 tablet by mouth every 8 hours as needed for pain for up to 5 days. 15 tablet 0 10/14/2022 10/19/2022 Active Comment on above: Take 1 tablet by gildardo th every 8 hours as needed for pain for up to 5 days. perflutren lipid microspheres 1.3 mL in NaCl (PF) 0.9% 10 mL injection (DEFINITY) (2 sources) Start: 025 End: 025 perflutren lipid microspheres 1.3 mL in NaCl (PF) 0.9% 10 mL injection (DEFINITY) phenylephrine hydrochloride 25 mg/ml ophthalmic solution (2 sources) alpha-1 Adrenergic Agonist Start: End: PHENYLephrine 2.5 % 1 Drop (AK-DILATE, FARNAZ-SYNEPHRINE) Start: 12-04-2022 End: 12-04-2022 PHENYLephrine 2.5 % 1 Drop ( AK-DILATE, FARNAZ-SYNEPHRINE) microencapsulated potassium chloride 20 meq extended release oral tablet (2 sources) Start: 11-08-2024 End: 11-08-2024 take 2 tablets by mouth once potassium chloride ER (KLOR-CON M20) 20 mEq tablet Take 2 tablets by mouth one time only for 1 dose. 2 tablet 11/08/2024 11/08/2024 Active Start: 11-06-2024 End: 11-07-2024 take 2 tablets by mouth twice daily potassium chloride ER (KLOR-CON) 20 mEq tablet Take 2 tablets by mouth two times a day for 1 dose. 2 tablet 11/06/2024 11/07/2024 Active predniSONE 20 mg oral tablet (1 source) Start: 02-01-2023 End: 02-09-2023 take 2 tablets by mouth once daily, then take 1 tablet by mouth once daily, then take 0.5 tablet by mouth once daily predniSONE (DELTASONE) 20 mg tablet Take 2 tablets by mouth once daily for 4 days, THEN 1 tablet once daily for 2 days, THEN 0.5 tablets once daily for 2 days. 11 tablet 0 02/01/2023 02/09/2023 Active Comment on above: Take 2 tablets by mo [facility] once daily for 4 days, THEN 1 tablet once daily for 2 days, THEN 0.5 tablets once daily for 2 days. proparacaine hydrochloride 5 mg/ml ophthalmic solution (2 sources) Local Anesthetic Start: 12-03-2023 End: 12-03-2023 proparacaine 0.5 % 1 Drop (ALCAINE) Start: 12-04-2022 End: 12-04-2022 proparacaine 0.5 % 1 Drop (A LCAINE) sildenafil 50 mg oral tablet (20 sources) Phosphodiesterase 5 Inhibitor Start: 10-04-2024 take 1 tablet by mouth once daily as needed sildenafil (VIAGRA) 50 mg tablet Indications: Erectile dysfunction, unspecified erectile dysfunction type TAKE 1 TABLET BY MOUTH EVERY DAY NEEDED 15 tablet 2 10/04/2024 Active Start: 05-08-2024 take 1 tablet by [facility] once daily as needed sildenafil (VIAGRA) 50 mg tablet Indications: Erectile dysfunction, unspecified erectile dysfunction type Take 1 tablet by mouth once daily as needed. 15 tablet 2 05/08/2024 Active Start: 2023 End: 05-05-2024 sildenafil (VIAGRA) 50 mg ta blet Indications: Erectile dysfunction, unspecified erectile dysfunction type TAKE 1 TABLET BY MOUTH NEEDED 30 - 60 MINUTES BEFORE SEXUAL INTERCOURSE 15 tablet 2 2023 05/05/2024 Discontinued Start: 02-26-2022 End: 2023 Sildenafil 50 mg tablet Acti ve 50 mg PO DAILY as needed August 27, 2022 12:00am administer 30 minutes to 4 hours before activity Comment on above: Take 1 tablet by gildardo th as needed. 30-60 minutes before sexual intercourse. TAKE 1 TABLET BY GILDARDO TH NEEDED 30 - 60 MINUTES BEFORE SEXUAL INTERCOURSE 125 ml sodium chloride 9 mg/ml prefilled syringe (2 sources) Start: 11-06-2024 End: 11-13-2024 sodium chloride 0.9 % (flush) 10 mL (BD POSIFLUSH) tropicamide 10 mg/ml ophthalmic solution (2 sources) Anticholinergic Start: 12-03-2023 End: 12-03-2023 tropicamide 1 % 1 Drop (MYDRIACYL) Start: 12-04-2022 End: 12-04-2022 tropicamide 1 % 1 Drop (MYDR IACYL) VIT B COMPLEX 100 COMBO NO.2 ORAL (20 sources) VIT B COMPLEX 10 0 COMBO NO.2 ORAL Take by mouth. Active VIT B COMPLEX 10 0 COMBO NO.2 ORAL Take by mouth. 0 Suspended VIT B COMPLEX 10 0 COMBO NO.2 ORAL Take by mouth. 0 Active Comment on above: Take by mouth. Vitamin B Complex (2 sources) Start: 08-27-2022 take 1 tablet by mouth once daily Vitamin B Complex Active 1 TABLET PO DAILY August 26, 2022 11:00pm Start: 08-27-2022 take 1 tablet by mouth once da rob Vitamin B Complex Active 1 TABLET PO DAILY August 27, 2022 12:00am Vitamin B Complex tablet (1 source) Start: 08-27-2022 Vitamin B Comp gasper tablet Active 1 {tbl} PO DAILY August 27, 2022 12:00am vitamin D3-vit K1-vit MK4-MK 7 50-500-1,500 mcg cap (20 sources) vitamin D3-vit K 1-vit MK4-MK7 50-500-1,500 mcg cap Take by mouth. Active vitamin D3-vit K 1-vit MK4-MK7 50-500-1,500 mcg cap Take by mouth. 0 Suspended vitamin D3-vit K 1-vit MK4-MK7 50-500-1,500 mcg cap Take by mouth. 0 Active Comment on above: Take by mouth. warfarin sodium 4 mg oral tablet (20 sources) Vitamin K Antagonist Start: 04-16-2023 End: 08-18-2024 take 1 tablet by mouth once daily warfarin (COUMADIN) 2 mg tablet Take 1 tablet by mouth daily as directed. 90 tablet 3 08/18/2024 Active Start: 01-27-2023 End: 08-25-2024 take 2 tablets by mouth once daily warfarin (COUMADIN) 4 mg tablet TAKE 2 TABLETS BY MOUTH EVERY DAY INSTRUCTED 180 tablet 1 08/25/2024 Active Start: 09-04-2022 End: 10-14-2022 warfarin (COUMADIN) 4 mg tab let Take 2 tablets 1 time daily as instructed 180 tablet 1 09/04/2022 10/14/2022 Discontinued Start: 08-27-2022 End: 01-27-2023 take 1 tablet by mouth once daily Warfarin 4 mg tablet Active 4 mg PO DAILY August 27, 2022 12:00am Start: 03-10-2022 End: 08-18-2024 take 1 tablet by mouth once daily warfarin (COUMADIN) 5 mg tablet take 1 tablet by mouth every day 30 tablet 2 03/02/2024 08/18/2024 Discontinued Start: 03-10-2022 End: 05-22-2022 warfarin (COUMADIN) 10 mg ta blet Take as instructed 90 tablet 1 03/10/2022 05/22/2022 Discontinued Start: 03-10-2022 warfarin (COUM SANDOVAL) 4 mg tablet Take as instructed 90 tablet 1 03/10/2022 Active Start: 02-26-2022 End: 03-10-2022 warfarin (COUMADIN) 7.5 mg t ablet Indications: Atrial fibrillation, unspecified type (HCC) 1 tab 5 days week 1 1/2 tabs 2 times a week 102 tablet 3 02/26/2022 03/10/2022 Discontinued End: 02-26-2022 take 1 tablet by mouth once daily warfarin (COUMADIN) 7.5 mg tablet Take 7.5 mg by mouth daily as directed. 0 02/26/2022 Discontinued Comment on above: 1 tab 5 days week 1 1/2 tabs 2 times a week Take 7.5 mg by mouth daily as directed. Take as instructed Take 2 tablets 1 blake e daily as instructed TAKE 1 TABLET BY GILDARDO TH EVERY DAY DIRECTED Take 1 tablet by gildardo th daily as directed. Take 1 tablet by gildardo th once daily. Completed/Discontinued Medications Medication Drug Class(es) Dates Sig (Normalized) Sig (Original) apixaban 5 mg oral tablet (10 sources) Factor Xa Inhibitor Start: 05-28-2023 End: 07-16-2023 take 1 tablet by mouth twice daily apixaban (ELIQUIS) 5 mg tab(s) Indications: Atrial fibrillation, unspecified type (HCC) Take 1 tablet by mouth two times a day. 60 tablet 2 05/28/2023 07/16/2023 Discontinued Comment on above: Take 1 tablet by gildardo th two times a day. aspirin 81 mg oral tablet (3 sources) Platelet Aggregation Inhibitor, Nonsteroidal Anti-inflammatory Drug Start: 01-17-2021 End: 09-08-2022 take 1 capsule by mouth once daily Aspirin 81 mg Capsule Discontinued 81 mg PO DAILY January 17, 2021 12:00am September 08, 2022 9:14am betamethasone 3 mg/ml / betamethasone acetate 3 mg/ml injectable suspension (2 sources) Corticosteroid Start: 09-25-2023 End: 09-25-2023 betamethasone acetate-betamethas one sodium phosphate 12 mg injection (CELESTONE) 24 hr dilTIAZem hydrochloride 120 mg extended release oral tablet (20 sources) Calcium Channel Bryan Start: 05-01-2023 End: 06-07-2024 take 1 capsule by mouth once daily dilTIAZem CD (CARDIZEM CD, CARTIA XT) 240 mg 24 hr capsule TAKE 1 CAPSULE BY MOUTH EVERY DAY 90 capsule 1 05/31/2024 Active Start: 02-26-2022 End: 12-04-2022 take 1 tablet by mouth once daily dilTIAZem (CARDIZEM) 120 mg tablet Indications: Atrial fibrillation, unspecified type (HCC) Take 1 tablet by mouth once daily. 90 tablet 1 12/04/2022 Suspended Start: 01-17-2021 End: 05-22-2023 take 1 tablet by mouth once daily Diltiazem Hcl (Cardizem La) 120 mg tablet extended release 24 hr Discontinued 120 mg PO DAILY 90 3 May 20, 2023 1:59pm May 22, 2023 3:55pm End: 02-26-2022 take 1 tablet by mouth four times daily dilTIAZem (CARDIZEM) 120 mg tablet Take 120 mg by mouth four times daily. 0 02/26/2022 Discontinued Comment on above: Take 1 tablet by gildardo once daily. Take 120 mg by mouth four times daily. Take 1 capsule by [facility] once daily. finasteride 5 mg oral tablet (18 sources) 5-alpha Reductase Inhibitor Start: 3 End: 4 take 1 tablet by mouth once daily finasteride (PROSCAR) 5 mg tablet TAKE 1 TABLET BY MOUTH EVERY DAY 30 tablet 5 01/26/2023 Active Comment on above: Take 1 tablet by [facility] once daily. TAKE 1 TABLET BY [facility] EVERY DAY glucosamine sulfate 500 mg oral tablet (20 sources) Start: 3 End: 3 take 1 tablet by mouth once daily Glucosamine Sulfate 500 mg tablet Discontinued 500 mg PO DAILY August 27, 2022 12:00am September 08, 2022 9:14am administer with a meal take 1 capsule by mouth once liza ly Glucosamine Sulfate 500 mg cap Take 500 mg by mouth once daily. 0 Active take 1 capsule by [facility] three times daily Glucosamine Sulfate 500 mg cap Take 500 mg by mouth three times daily. 0 Active Comment on above: Take 500 mg by mouth three times daily. Take 500 mg by mouth once daily. ibuprofen 600 mg oral tablet (3 sources) Nonsteroidal Anti-inflammatory Drug Start: 01-18-20 End: 08-28-19 23 take 1 tablet by mouth every six hours as needed for pain Ibuprofen 600 mg tablet Discontinued 600 mg PO EVERY 6 HOURS NEEDED as needed for pain 20 0 January 17, 2021 12:00am August 27, 2022 8:14am 10 ml lidocaine hydrochloride 10 mg/ml injection (2 sources) Antiarrhythmic, Amide Local Anesthetic Start: 09-25-19 24 End: 09-25-19 24 lidocaine (PF) 10 mg/mL (1 %) 1 mL injection (XYLOCAINE) Multivitamin preparation (2 sources) Start: 08-28-19 End: 09-09-19 take 1 tablet by mouth once daily Multivitamin Discontinued 1 TABLET PO DAILY August 26, 2022 11:00pm September 08, 2022 8:13am Start: 08-27-2022 End: 09-08-2022 take 1 tablet by mouth once daily Multivitamin Discontinued 1 TABLET PO DAILY August 27, 2022 12:00am September 08, 2022 9:13am Multivitamin tablet (1 source) Start: 08-27-2022 End: 09-08-2022 Multivitamin tablet Discontinued 1 {tbl} PO DAILY August 27, 2022 12:00am September 08, 2022 9:13am [place] 5-Ewv-Lok-Fish Oil (2 sources) Start: 08-27-2022 End: 06-05-2023 take 1 capsule by mouth once daily [place] 2-Ngg-Rex-Fish Oil Discontinued 1 CAP PO DAILY August 26, 2022 11:00pm June 05, 2023 1:19pm Start: 08-27-2022 take 1 capsule by [facility] once daily [place] 7-Zop-Qwv-Fish Oil Active 1 CAP PO DAILY August 27, 2022 12:00am [place] 8-Dgu-Wpe-Fish Oil 200-300-1,000 mg capsule (1 source) Start: 08-27-2022 End: 06-05-2023 take 200-300 capsules by mouth once daily [place] 7-Qfe-Kgd-Fish Oil 200-300-1,000 mg capsule Discontinued 1 NMA PO DAILY August 27, 2022 12:00am June 05, 2023 2:19pm tadalafil 20 mg oral tablet (13 sources) Phosphodiesterase 5 Inhibitor Start: 01-05-2024 End: 05-08-2024 take 1 tablet by mouth once daily as needed Tadalafil (CIALIS) 20 mg tablet Take 1 tablet by mouth once daily as needed. Take 1-2 hours before sexual activity. 8 tablet 01/05/2024 05/08/2024 Discontinued tamsulosin hydrochloride 0.4 mg oral capsule (20 sources) alpha-Adrenergic Bryan Start: 06-26-2022 End: 06-05-2023 take 1 capsule by mouth once daily Tamsulosin 0.4 mg capsule Discontinued 0.4 mg PO DAILY September 08, 2022 12:00am June 05, 2023 2:19pm Comment on above: Take 1 capsule by [facility] once daily. 30 minutes after the same meal each day. vancomycin 125 mg oral capsule (2 sources) Glycopeptide Antibacterial Start: 06-16-2023 End: 06-26-2023 take 1 capsule by mouth four times daily vancomycin (VANCOCIN) 125 mg capsule Indications: C. difficile diarrhea Take 1 capsule by mouth four times daily for 10 days. 40 capsule 0 06/16/2023 06/26/2023 Comment on above: Take 1 capsule by [facility] four times daily for 10 days. Problems Active Problems Problem Classification Problem Date Documented Date Episodic/Chronic Abdominal hernia (3 sources) Umbilical hernia; Translations: [Umbilical hernia without obstruction or gangrene] Episodic Acute and unspecified renal failure (1 source) Acute kidney failure, unspecified; Translations: [GIOVANNI (acute kidney injury)] Onset: 11-05-2024 Episodic Blindness and vision defects (2 sources) Bilateral myopia of eyes; Translations: [Myopia, bilateral] 12-14-2023 Episodic Calculus of urinary tract (3 sources) Urolithiasis ; Translations: [Urinary calculus, unspecified] 08-27-2022 Episodic Cardiac dysrhythmias (20 sources) Unspecified atrial fibrillation; Translations: [Atrial fibrillation] Onset: 02-11-2022 Chronic Cataract (1 source) Artificial lens present; Translations: [Presence of intraocular lens] 12-14-2023 Chronic Conduction disorders (4 sources) First degree atrioventricular block; Translations: [Atrioventricular block, first degree] Onset: 09-08-2022 08-27-2022 Chronic Disorders of lipid metabolism (2 sources) Hypercholesterolemia; Translations: [Pure hypercholesterolemia, unspecified] 01-05-2023 Chronic Essential hypertension (17 sources) Essential hypertension; Translations: [Essential (primary) hypertension] Onset: 09-08-2022 09-08-2022 Chronic Fluid and electrolyte disorders (1 source) Hypokalemia; Translations: [Hypokalemia] Onset: 11-05-2024 Episodic Genitourinary symptoms and ill-defined conditions (3 sources) Blood in urine; Translations: [Hematuria, unspecified] 08-27-2022 Episodic Hemorrhoids (2 sources) Hemorrhoids; Translations: [Unspecified hemorrhoids] 07-25-2024 Episodic Hyperplasia of prostate (10 sources) Benign prostatic hypertrophy without outflow obstruction; Translations: [Benign prostatic hyperplasia without lower urinary tract symptoms] Onset: 10-04-2024 Chronic Immunizations and screening for infectious disease (1 source) Requires varicella vaccination; Translations: [Encounter for immunization] Episodic Malaise and fatigue (4 sources) Fatigue; Translations: [Other fatigue] 06-05-2023 Episodic Melanomas of skin (20 sources) Malignant melanoma of trunk; Translations: [Malignant melanoma of other part of trunk] Onset: 09-14-2023 09-14-2023 Chronic Nutritional deficiencies (1 source) Vitamin D deficiency; Translations: [Vitamin D deficiency, unspecified] Chronic Osteoarthritis (2 sources) Osteoarthritis of joint of right wrist; Translations: [Primary osteoarthritis, right wrist] 09-25-2023 Chronic Other aftercare (2 sources) Encounter for therapeutic drug level monitoring; Translations: [Encounter for therapeutic drug level monitoring] Onset: 02-11-2022 Episodic Other aftercare (2 sources) produce weigher (current) use of anticoagulants; Translations: [produce weigher (current) use of anticoagulants] Onset: 02-11-2022 Episodic Other aftercare (3 sources) Long-term current use of anticoagulant; Translations: [produce weigher (current) use of anticoagulants] 08-27-2022 Episodic Other connective tissue disease (1 source) Pain in right arm; Translations: [Pain in right arm] Episodic Other connective tissue disease (1 source) Diastasis recti; Translations: [Separation of muscle (nontraumatic), other site] Episodic Other connective tissue disease (1 source) Bursitis of olecranon of left elbow; Translations: [Olecranon bursitis, left elbow] 04-19-2023 Episodic Other connective tissue disease (4 sources) Ganglion cyst of right wrist; Translations: [Ganglion, right wrist] 09-14-2023 Episodic Other connective tissue disease (3 sources) Pain in left thumb; Translations: [Pain in left finger(s)] 08-08-2024 Episodic Other connective tissue disease (9 sources) Pain of left hand; Translations: [Pain in left hand] 08-26-2024 Episodic Other connective tissue disease (2 sources) Rupture of extensor tendon of finger 08-26-2024 Episodic Other connective tissue disease (1 source) Synovitis; Translations: [Crepitant synovitis (acute) (chronic), left wrist] 08-26-2024 Episodic Other connective tissue disease (1 source) Crepitant synovitis (acute) (chronic), left wrist; Translations: [Crepitant synovitis of wrist, left] Onset: 08-29-2024 Episodic Other connective tissue disease (1 source) Pain in left hand; Translations: [Left hand pain] Onset: 08-26-2024 Episodic Other connective tissue disease (1 source) Pain in left finger(s); Translations: [Pain of left thumb] Onset: 08-26-2024 Episodic Other ear and sense organ disorders (1 source) Hearing loss; Translations: [Unspecified hearing loss, unspecified ear] 09-12-2024 Chronic Other ear and sense organ disorders (11 sources) Asymmetrical sensorineural hearing loss; Translations: [Sensorineural hearing loss, bilateral] Onset: 09-19-2024 09-19-2024 Chronic Other ear and sense organ disorders (1 source) Sensorineural hearing loss, bilateral; Translations: [Sensorineural hearing loss, asymmetrical] Onset: 09-19-2024 Chronic Other ear and sense organ disorders (1 source) Unspecified hearing loss, unspecified ear; Translations: [Hearing loss, unspecified hearing loss type, unspecified laterality] Onset: 09-12-2024 Chronic Other ear and sense organ disorders (1 source) Impacted cerumen of bilateral ears; Translations: [Impacted cerumen, bilateral] 09-12-2024 Episodic Other ear and sense organ disorders (12 sources) Bilateral tinnitus; Translations: [Tinnitus, bilateral] Onset: 09-19-2024 09-19-2024 Episodic Other ear and sense organ disorders (1 source) Bilateral hearing loss; Translations: [Impacted cerumen, bilateral] 09-19-2024 Episodic Other ear and sense organ disorders (1 source) Tinnitus, bilateral; Translations: [Tinnitus of both ears] Onset: 09-19-2024 Episodic Other ear and sense organ disorders (1 source) Impacted cerumen, bilateral; Translations: [Impacted cerumen of both ears] Onset: 09-12-2024 Episodic Other injuries and conditions due to external causes (13 sources) Injury of Achilles tendon; Translations: [Unspecified injury of right Achilles tendon, initial encounter] 04-02-2023 Episodic Other lower respiratory disease (20 sources) Dyspnea on exertion; Translations: [Other forms of dyspnea] Onset: 04-28-2023 04-28-2023 Episodic Other male genital disorders (4 sources) Male erectile dysfunction, unspecified; Translations: [Impotence of organic origin] Chronic Other male genital disorders (1 source) Secondary erectile dysfunction; Translations: [Male erectile dysfunction, unspecified] 01-05-2024 Chronic Other nervous system disorders (3 sources) Difficulty walking; Translations: [Difficulty in walking, not elsewhere classified] 08-17-2023 Chronic Other non-traumatic joint disorders (5 sources) Acute ankle pain; Translations: [Pain in right ankle and joints of right foot] 02-10-2023 Episodic Other non-traumatic joint disorders (1 source) Decreased range of thumb movement; Translations: [Stiffness of left hand, not elsewhere classified] 11-02-2024 Episodic Other screening for suspected conditions (not mental disorders or infectious disease) (20 sources) Raised prostate specific antigen; Translations: [Elevated prostate specific antigen [PSA]] Onset: 06-18-2022 Episodic Residual codes; unclassified (20 sources) Obstructive sleep apnea syndrome; Translations: [Obstructive sleep apnea (adult) (pediatric)] Onset: 04-20-2023 08-27-2022 Chronic Residual codes; unclassified (2 sources) Postoperative state; Translations: [Other specified postprocedural states] 09-14-2024 Episodic Residual codes; unclassified (2 sources) Other specified postprocedural states; Translations: [Postoperative state] Onset: 09-02-2024 Episodic Sprains and strains (20 sources) Injury of shoulder and upper arm; Translations: [Strain of muscle, fascia and tendon of other parts of biceps, right arm, initial encounter] Onset: 05-19-2023 Episodic Unclassified (1 source) Coumadin/INR Onset: 11-03-2024 Past or Other Problems Problem Classification Problem Date Documented Da te Episodic/Chronic Acute myocardial infarction (2 sources) Myocardial infarction; Translations: [Non-ST elevation (NSTEMI) myocardial infarction] Onset: 11-05-2024 Resolved: 11-06-2024 11-06-2024 Chronic Melanomas of skin (20 sources) History of malignant melanoma of the skin; Translations: [Personal history of malignant melanoma of skin] Onset: 10-17-2003 10-17-2003 Episodic Nonspecific chest pain (20 sources) Chest discomfort; Translations: [Other chest pain] Onset: 04-28-2023 04-28-2023 Episodic Other aftercare (20 sources) Surgical follow-up; Translations: [Follow-up examination following surgery] Onset: 10-24-2003 10-24-2003 Episodic Other circulatory disease (20 sources) Elevated blood-pressure reading without diagnosis of hypertension; Translations: [Elevated blood-pressure reading, without diagnosis of hypertension] Onset: 04-20-2023 04-20-2023 Episodic Other connective tissue disease (20 sources) Enthesopathy of knee; Translations: [Enthesopathy of knee] Onset: 10-10-2003 10-10-2003 Episodic Other connective tissue disease (20 sources) Infection of olecranon bursa of left elbow; Translations: [Other infective bursitis, left elbow] Onset: 04-22-2023 04-24-2023 Episodic Other nervous system disorders (20 sources) H/O: retinal detachment; Translations: [Personal history of other diseases of the nervous system and sense organs] Onset: 12-03-2023 12-03-2022 Episodic Other nervous system disorders (1 source) Personal history of other diseases of the nervous system and sense organs; Translations: [Hx of retinal detachment] Onset: 12-03-2023 Episodic Residual codes; unclassified (20 sources) Localized edema; Translations: [Localized edema] Onset: 04-28-2023 04-28-2023 Episodic Septicemia (except in labor) (20 sources) Sepsis; Translations: [Sepsis, unspecified organism] Onset: 06-08-2023 Resolved: 09-18-2023 06-08-2023 Episodic Skin and subcutaneous tissue infections (20 sources) Cellulitis of left upper limb; Translations: [Cellulitis of left upper limb] Onset: 04-24-2023 04-24-2023 Episodic Syncope (3 sources) Syncope and collapse; Translations: [Near syncope] Onset: 11-05-2024 Resolved: 11-06-2024 11-06-2024 Episodic Results Test Name Value Interpretation Reference Range Facility [facility] 11-08-2024 TOY Telephone (AGINTMLW) RU WORKMAN ([id number]) 1955 Date Time Provider Department 11/08/24 RYAN EDWARDS [facility] During your visit today, we recorded the following information about you: Cristine Boykin LPN 11/08/2024 10:14 AM Signed Pt stopped in office stating that potassium was sent in to the pharmacy but pharmacy could not fill as it was sent in incorrect. Pt is asking that Ryan Edwards send in script. Per chart script was sent in for potassium chloride ER 20 mEq 2 tablets by mouth twice daily for 1 dosage. Per d/c paperwork pt brought in last dosage of potassium 40 mEq was given on 11/06/2024 at 9:49AM. This is showing that pt is due for only one dosage of potassium 40mEq 1 dosage. Sent to Ryan Edwards CNP for review and recommendations. OTF Belle Charlene M, CIERA.BARBIE 11/08/2024 10:28 AM Signed New rx sent in for one time dose of 40 meq x1 Shannan Muñoz MA 11/08/2024 3:20 PM Signed Called patient and informed Shannan Muñoz MA Allergies As of Date: 11/08/2024 (No Known Allergies) Date Reviewed: 11/06/2024 Reviewed by: Amber Irene, RN - Fully Assessed Reason for Visit: Medication Problem [65] Cmt: Potassium from hospital d/c Order(s):potassium chloride ER (KLOR-CON M20) 20 mEq tabletTake 2 tablets by mouth one time only for 1 dose.Disp: 2 tabletRfl: 0 Prescriptions as of 11/08/2024 - potassium chloride ER (KLOR-CON M20) 20 mEq tablet Take 2 tablets by mouth one time only for 1 dose. - sildenafil (VIAGRA) 50 mg tablet TAKE 1 TABLET BY MOUTH EVERY DAY NEEDED - warfarin (COUMADIN) 4 mg tablet TAKE 2 TABLETS BY MOUTH EVERY DAY INSTRUCTED - warfarin (COUMADIN) 2 mg tablet Take 1 tablet by mouth daily as directed. - dilTIAZem CD (CARDIZEM CD, CARTIA XT) 240 mg 24 hr capsule TAKE 1 CAPSULE BY MOUTH EVERY DAY - VIT B COMPLEX 100 COMBO NO.2 ORAL Take by mouth. Facility-Administered Medications as of 11/08/2024 - perflutren lipid microspheres 1.3 mL in NaCl (PF) 0.9% 10 mL injection (DEFINITY) - sodium chloride 0.9 % (flush) 10 mL (BD POSIFLUSH) Problem List As Of Date 11/08/2024 Noted Resolved ENTHESOPATHY OF KNEE [726.6] 10/10/2003 PERS HX MALIG SKIN MELANOMA [Z85.820] 10/17/2003 SURGERY FOLLOW-UP [V67.0] 10/24/2003 A-fib (HCC) [I48.91] 02/26/2022 Elevated prostate specific antigen (PSA) [R97.2*06/18/2022 Preop examination [Z01.818] 04/20/2023 SHANNON (obstructive sleep apnea) [G47.33] 04/20/2023 Elevated BP without diagnosis of hypertension [*04/20/2023 Septic bursitis of elbow, left [M71.122] 04/22/2023 Cellulitis of left upper extremity [L03.114] 04/24/2023 Chest discomfort [R07.89] 04/28/2023 Localized edema [R60.0] 04/28/2023 Dyspnea on exertion [R06.09] 04/28/2023 Rupture of right Achilles tendon [S86.011A] 05/19/2023 Sepsis (HCC) [A41.9] 06/08/2023 09/18/2023 Malignant melanoma of torso excluding breast (H*09/14/2023 Hx of retinal detachment [Z86.69] 12/03/2023 Tinnitus of both ears [H93.13] 09/19/2024 Sensorineural hearing loss, asymmetrical [H90.3]09/19/2024 Benign prostatic hyperplasia without lower urin*10/04/2024 Primary hypertension [I10] 10/04/2024 SVT (supraventricular tachycardia) (HCC) [I47.1*11/05/2024 Near syncope [R55] 11/05/2024 11/06/2024 NSTEMI (non-ST elevated myocardial infarction) *11/05/2024 11/06/2024 Prescriptions ordered this encounter Disp Refills Start End POTASSIUM CHLORIDE ER 20 MEQ TABLET,* 2 ta* 0 11/08/2024 11/08/2024 Route: PO Sig: Take 2 tablets by mouth one time only for 1 dose. Encounter Status:Closed by CRISTINE BOYKIN on 11/08/24 Normal [facility] CBC panel Auto (Bld)on 11-06 Erythrocyte distribution width (RBC) [Ratio] 13.8 % Normal 11.5-15.0 [facility] Comment on above: Order Comment: Jackelyn zaldivar Type: BLOOD SPECIMEN Ordering Facility: [facility] Address: [address] [place] [address] Performed By: #### 5 8410-2 #### [facility] CLIA [id number] [address] [place] Hematocrit (Bld) [Volume fraction] 42.9 % Normal 39.0-51.0 [facility] Comment on above: Order Comment: Jackelyn zaldivar Type: BLOOD SPECIMEN Ordering Facility: [facility] Address: [address] [place] [address] Performed By: #### 5 8410-2 #### [facility] CLIA [id number] [address] [place] Hemoglobin (Bld) [Mass/Vol] 14.4 g/dL Normal 13.0-17.0 [facility] Comment on above: Order Comment: Jackelyn zaldivar Type: BLOOD SPECIMEN Ordering Facility: [facility] Address: [address] [place] [address] Performed By: #### 5 8410-2 #### [facility] CLIA [id number] [address] [place] MCH (RBC) [Entitic mass] 31.2 pg Normal 26.0-34.0 [facility] Comment on above: Order Comment: Speci men Type: BLOOD SPECIMEN Ordering Facility: [facility] Address: [address] [place] [address] Performed By: #### 5 8410-2 #### [facility] CLIA [id number] [address] MCHC (RBC) [Mass/Vol] 33.6 g/dL Normal 30.5-36.0 [facility] Comment on above: Order Comment: Speci men Type: BLOOD SPECIMEN Ordering Facility: [facility] Address: [address] [place] [address] Performed By: #### 5 8410-2 #### [facility] CLIA [id number] [address] MCV (RBC) [Entitic vol] 92.9 fL Normal 80.0-100.0 [facility] Comment on above: Order Comment: Speci men Type: BLOOD SPECIMEN Ordering Facility: [facility] Address: [address] [place] [address] Performed By: #### 5 8410-2 #### [facility] CLIA [id number] [address] Nucleated RBC (Bld) [#/Vol] 10*3/uL Normal <0.01 [facility] Comment on above: Order Comment: Speci men Type: BLOOD SPECIMEN Ordering Facility: [facility] Address: [address] [place] [address] Performed By: #### 5 8410-2 #### [facility] CLIA [id number] [address] Platelet mean volume (Bld) [Entitic vol] 11.2 fL Normal 9.0-12.7 [facility] Comment on above: Order Comment: Speci men Type: BLOOD SPECIMEN Ordering Facility: [facility] Address: [address] [place] [address] Performed By: #### 5 8410-2 #### [facility] CLIA [id number] [address] [place] Platelets (Bld) [#/Vol] 170 10*3/uL Normal 150-400 [facility] Comment on above: Order Comment: Speci men Type: BLOOD SPECIMEN Ordering Facility: [facility] Address: [address] [place] [address] Performed By: #### 5 8410-2 #### [facility] CLIA [id number] [address] OF [facility] RBC (Bld) [#/Vol] 4.62 10*6/uL Normal 4.20-6.00 [facility] Comment on above: Order Comment: Speci men Type: BLOOD SPECIMEN Ordering Facility: [facility] Address: [address] [place] [address] Performed By: #### 5 8410-2 #### [facility] CLIA [id number] [address] OF [facility] WBC (Bld) [#/Vol] 9.16 10*3/uL Normal 3.70-11.00 [facility] Comment on above: Order Comment: Speci men Type: BLOOD SPECIMEN Ordering Facility: [facility] Address: [address] [place] [address] Performed By: #### 5 8410-2 #### [facility] CLIA [id number] [address] CNDSon 11-06-2024 [facility] HNO ID: [id number] Author: SINDHU DOBBINS APRN.WAFFLE MACHINE OPERATOR Service: Hospital Medicine Author Type: Nurse Practitioner Type: Discharge Summary Filed: 11/06/2024 10:48 Note Text: Attestation signed by Stan Gorman MD at 11/06/2024 12:26 PM Discussed with provider below and I agree with their discharge documentation. Stan Gorman MD DISCHARGE SUMMARY PATIENT NAME: Ru Workman ADMISSION DATE: 11/05/2024 DISCHARGE DATE: 11/06/2024 ATTENDING PHYSICIAN: Stan Gorman MD Code Status: DNR-CCA Highest Readmission Risk Score: 11 The 30 day readmissions risk score is derived from an internally validated risk model which evaluates patient level characteristics, utilization history, medication orders and lab results up until the day of discharge. Patients with a score of 39 or above are considered highest risk for readmission. Specific patient level drivers will be listed at the bottom of the summary. Treatment Team: Attending Provider: Stan Gorman MD Consulting: Amber Moreau MD Nurse Practitioner: Sindhu Dobbins APRN.WAFFLE MACHINE OPERATOR REASON FOR HOSPITALIZATION: SVT FINAL DIAGNOSIS: SVT Active Hospital Problems Diagnosis POA SVT (supraventricular tachycardia) ([facility]) Yes Primary hypertension Yes Benign prostatic hyperplasia without lower urinary tract symptoms Yes SHANNON (obstructive sleep apnea) Yes A-fib ([facility]) Yes Resolved Hospital Problems Diagnosis POA Near syncope Yes NSTEMI (non-ST elevated myocardial infarction) ([facility]) Yes OPERATIONS DURING HOSPITALIZATION: None PROCEDURES DURING HOSPITALIZATION: No procedures performed HOSPITAL COURSE: Ru Workman is a 69 year old male with a PMH significant for Atrial Fibrillation on Coumadin, BPH, SHANNON, and HTN who presented for evaluation of a near syncopal episode. Patient was found to be in SVT on presentation to the ER but quickly converted back to NSR without intervention. HS Troponins 108, 82, 71 likely type II/demand process in the setting of tachy-arrhythmia. Trops continued to down trend. Potassium was noted to be low and mag was low normal so electrolytes were replaced. He was monitored on telemetry without any recurrence of SVT. Evaluated by cardiology and cleared for discharge home with close outpatient follow up with PCP in 1 week, cards in 2 weeks and outpatient Echo. Patient endorses drinking 1/2 gallon of iced tea daily and was counseled to reduce ice tea intake and replace with water. He remained HDS on room air and discharged home in stable condition. Transitions of Care Critical Issues: - PCP in 1 week, cardiology in 2 weeks and outpatient ECHO PATIENT CONDITION AT DISCHARGE: Stable DISCHARGE DISPOSITION: Home with Self Care Discharge Physical Exam: VITAL SIGNS: BP 136/70 Pulse 73 Temp 37.2 ?C (99 ?F) (Temporal) Resp 18 Ht 182.9 cm (6') Wt 103.3 kg (227 lb 11.8 oz) SpO2 96% BMI 30.89 kg/m? GENERAL: Alert, no distress, cooperative SKIN: No rashes or lesions. HEAD/SINUSES: No significant findings. AT/NC EYES: EOMI OROPHARYNX: MMM LUNGS: Lungs clear to auscultation, good diaphragmatic excursion CARDIAC: Normal S1 and S2; no rubs, murmurs, or gallops ABDOMEN: Abdomen soft, non-tender, BS present EXTREMITIES: Extremities normal, no deformities, edema, clubbing or skin discoloration. WOUND/SURGICAL SITE CARE: None DIET: Resume your pre-hospital diet ACTIVITY: Resume pre-hospital activity ALLERGIES No Known Allergies DISCHARGE MEDICATION: Medication List START taking these medications potassium chloride ER 20 mEq tablet Commonly known as: KLOR-CON Take 2 tablets by mouth two times a day for 1 dose. CHANGE how you take these medications * warfarin 2 mg tablet Commonly known as: COUMADIN Take 1 tablet by mouth daily as directed. What changed: Another medication with the same name was changed. Make sure you understand how and when to take each. * warfarin 4 mg tablet Commonly known as: COUMADIN TAKE 2 TABLETS BY MOUTH EVERY DAY INSTRUCTED What changed: how much to take how to take this when to take this * This list has 2 medication(s) that are the same as other medications prescribed for you. Read the directions carefully, and ask your doctor or other care provider to review them with you. CONTINUE taking these medications dilTIAZem CD 240 mg 24 hr capsule Commonly known as: CARDIZEM CD, CARTIA XT TAKE 1 CAPSULE BY MOUTH EVERY DAY sildenafil 50 mg tablet Commonly known as: VIAGRA TAKE 1 TABLET BY MOUTH EVERY DAY NEEDED VIT B COMPLEX 100 COMBO NO.2 ORAL Where to Get Your Medications These medications were sent to [facility]- [id number] [place] [address] - [address] [facility] [place] - [phone] [facility] [address] Phone: [phone] (more content not included)... Normal [facility] Comprehensive metabolic 2000 panelon 11-06-2024 Albumin [Mass/Vol] 3.7 g/dL Low 3.9-4.9 [facility] Comment on above: Order Comment: Speci men Type: BLOOD SPECIMEN Ordering Facility: [facility] Address: [address] [place] [address] Performed By: #### 2 4323-8, #### [facility] CLIA [id number] [address] [place] [address] [place] ALP [Catalytic activity/Vol] 61 U/L Normal 38-113 [facility] Comment on above: Order Comment: Speci men Type: BLOOD SPECIMEN Ordering Facility: [facility] Address: [address] [place] [address] Performed By: #### 2 432-8, #### [facility] CLIA [id number] [address] [place] ALT [Catalytic activity/Vol] 24 U/L Normal 10-54 [facility] Comment on above: Order Comment: Speci men Type: BLOOD SPECIMEN Ordering Facility: [facility] Address: [address] [place] [address] Performed By: #### 2 4323-8, #### [facility] CLIA [id number] [address] Anion gap [Moles/Vol] 13 mmol/L Normal 8-15 [facility] Comment on above: Order Comment: Speci men Type: BLOOD SPECIMEN Ordering Facility: [facility] Address: [address] [place] [address] Performed By: #### 2 432-8, #### [facility] CLIA [id number] [address] [place] AST [Catalytic activity/Vol] 19 U/L Normal 14-40 [facility] Comment on above: Order Comment: Speci men Type: BLOOD SPECIMEN Ordering Facility: [facility] Address: [address] [place] [address] Performed By: #### 2 4323-8, #### [facility] CLIA [id number] [address] [place] [address] [place] Bilirubin [Mass/Vol] 1.0 mg/dL Normal 0.2-1.3 [facility] Comment on above: Order Comment: Speci men Type: BLOOD SPECIMEN Ordering Facility: [facility] Address: [address] [place] [address] Performed By: #### 2 4323-8, #### [facility] CLIA [id number] [address] [place] [address] [place] Calcium [Mass/Vol] 8.7 mg/dL Normal 8.5-10.2 [facility] Comment on above: Order Comment: Speci men Type: BLOOD SPECIMEN Ordering Facility: [facility] Address: [address] [place] [address] Performed By: #### 2 432-8, #### [facility] CLIA [id number] [address] [place] [address] [place] Chloride [Moles/Vol] 108 mmol/L High 98-107 [facility] Comment on above: Order Comment: Speci men Type: BLOOD SPECIMEN Ordering Facility: [facility] Address: [address] [place] [address] Performed By: #### 2 432-8, #### [facility] CLIA [id number] [address] [place] [address] [place] CO2 [Moles/Vol] 20 mmol/L Low 22-30 [facility] Comment on above: Order Comment: Speci men Type: BLOOD SPECIMEN Ordering Facility: [facility] Address: [address] [place] [address] Performed By: #### 2 4323-8, #### [facility] CLIA [id number] [address] [place] [address] [place] Creatinine [Mass/Vol] 1.22 mg/dL Normal 0.73-1.22 [facility] Comment on above: Order Comment: Speci men Type: BLOOD SPECIMEN Ordering Facility: [facility] Address: [address] [place] [address] Performed By: #### 2 4328, #### [facility] CLIA [id number] [address] [place] [address] [place] Creatinine and Glomerular filtration rate.predicted panel (S/P/Bld) 64 mL/min/1.73m??? Normal >=60 [facility] Comment on above: Order Comment: Jackelyn zaldivar Type: BLOOD SPECIMEN Ordering Facility: [facility] Address: [address] [place] [address] Result Comment: Nellie mated Glomerular Filtration Rate (eGFR) is calculated using the 2020 CKD-EPI creatinine equation. This equation utilizes serum creatinine, sex, and age as parameters. The creatinine assay has traceable calibration to isotope dilution-mass spectrometry. Refer to KDIGO guidelines for clinical interpretation. In patients with unstable renal function, e.g. those with acute kidney injury, the eGFR may not accurately reflect actual GFR. Performed By: #### 2 4323-8, #### [facility] CLIA [id number] [address] [place] [address] [place] Glucose [Mass/Vol] 127 mg/dL High 74-99 [facility] Comment on above: Order Comment: Jackelyn zaldivar Type: BLOOD SPECIMEN Ordering Facility: [facility] Address: [address] [place] [address] Result Comment: The [place] [employer] (ADA) provides guidance for cutoff values for fasting glucose and random glucose. The ADA defines fasting as no caloric intake for at least 8 hours. Fasting plasma glucose results between 100 to 125 mg/dL indicate increased risk for diabetes (prediabetes). Fasting plasma glucose results greater than or equal to 126 mg/dL meet the criteria for diagnosis of diabetes. In the absence of unequivocal hyperglycemia, results should be confirmed by repeat testing. In a patient with classic symptoms of hyperglycemia or hyperglycemic crisis, random plasma glucose results greater than or equal to 200 mg/dL meet the criteria for diagnosis of diabetes. Reference: Standards of Medical Care in Diabetes 2016, [place] [employer]. Diabetes Care. 2016.39(Suppl 1). Performed By: #### 2 4323-8, #### [facility] CLIA [id number] [address] [place] [address] [place] Potassium [Moles/Vol] 3.3 mmol/L Low 3.7-5.1 [facility] Comment on above: Order Comment: Speci men Type: BLOOD SPECIMEN Ordering Facility: [facility] Address: [address] [place] [address] Performed By: #### 2 4323-8, #### [facility] CLIA [id number] [address] [place] [address] [place] Protein [Mass/Vol] 6.6 g/dL Normal 6.3-8.0 [facility] Comment on above: Order Comment: Speci men Type: BLOOD SPECIMEN Ordering Facility: [facility] Address: [address] [place] [address] Performed By: #### 2 4323-8, #### [facility] CLIA [id number] [address] [place] [address] [place] Sodium [Moles/Vol] 141 mmol/L Normal 136-144 [facility] Comment on above: Order Comment: Speci men Type: BLOOD SPECIMEN Ordering Facility: [facility] Address: [address] [place] [address] Performed By: #### 2 432-8, #### [facility] CLIA [id number] [address] [place] [address] [place] Urea nitrogen [Mass/Vol] 23 mg/dL Normal 9-24 [facility] Comment on above: Order Comment: Speci men Type: BLOOD SPECIMEN Ordering Facility: [facility] Address: [address] [place] [address] Performed By: #### 2 4323-8, #### [facility] CLIA [id number] [address] [place] [address] [place] Magnesium SerPl-mCncon 11-06 Magnesium [Mass/Vol] 1.9 mg/dL Normal 1.7-2.3 [facility] Comment on above: Order Comment: Speci men Type: BLOOD SPECIMEN Ordering Facility: [facility] Address: [address] [place] [address] Performed By: #### 2 4323-8, #### [facility] CLIA [id number] [address] PT panel Coag (PPP)on 2024 INR Coag (PPP) [Relative time] 1.8 {INR} High 0.9-1.3 [facility] Comment on above: Order Comment: Jackelyn zaldivar Type: BLOOD SPECIMEN Ordering Facility: [facility] Address: [address] [place] [address] Result Comment: Grace min K Antagonist (VKA) Therapeutic Range: INR 2 to 3 (Target INR of 2.5) Note: For patients treated with VKA drugs, such as warfarin, the [place] [employer] 2012 Guideline recommends a therapeutic INR range of 2 to 3 (target INR of 2.5). This recommendation includes high-risk patients with antiphospholipid syndrome with previous arterial or venous thromboembolism, current-generation mechanical or bioprosthetic aortic heart valve replacement. Note: Patients with mechanical aortic valve replacement and additional risk factors for thromboembolic events (atrial fibrillation, previous thromboembolism, LV dysfunction, hypercoagulable conditions) or an older generation mechanical AVR (i.e., ball in-Cage) or any mechanical MVR should have a INR therapeutic range of 2.5 to 3.5 (target INR of 3). Guyatt GH, et al. Chest 2012, 141:7S-47S Cecilio RA, et al. [facility] 2017, 70: 252-289 Performed By: #### 3 4528-0 #### [facility] CLIA [id number] [address] OF [facility] PT Coag (PPP) [Time] 18.4 s High 9.7-13.0 [facility] Comment on above: Order Comment: Jackelyn zaldivar Type: BLOOD SPECIMEN Ordering Facility: [facility] Address: [address] [place] [address] Performed By: #### 3 4528-0 #### [facility] CLIA [id number] [address] [place] ALLIED HEALTHon 11-05-2024 [facility] HNO ID: [id number] Author: DEVIKA LINDA RT(R) Service: Radiology Author Type: Technologist Type: Allied Health Filed: 11/05/2024 10:03 Note Text: Radiology Service Progress Note PATIENT NAME: Ru Workman DATE OF SERVICE: November 05, 2024 TIME: 10:03 AM PATIENT IDENTITY VERIFICATION COMPLETED USING TWO (2) IDENTIFIERS: Name and Date of confirmed by patient verbally. FALL SCREENING: Has the patient had 2 falls in the last year or 1 fall with injury or currently using an Ambulatory Assistive Device (Walker, Cane, Wheelchair, Crutches, etc.)? Emergency Room Patient: Screened in ED PATIENT GENDER DATA: Assigned male at PATIENT RELEVANT IMPLANT DATA REVIEWED: Not Applicable PATIENT PRESENTS WITH AN IMPLANTABLE OR ATTACHED CONSTRUCTION CONSULTANT: No RADIOLOGY DEPARTMENT: General X-ray: Exam(s) Completed: Chest X-Ray PERIPHERAL IV DATA: Not applicable SIGNED BY: RT Rosie(R) November 05, 2024 10:03 AM Normal [facility] CBC panel Auto (Bld)on 11-05 Erythrocyte distribution width (RBC) [Ratio] 13.9 % Normal 11.5-15.0 [facility] Comment on above: Order Comment: Speci men Type: BLOOD SPECIMEN Ordering Facility: [facility] Address: [address] [place] [address] Performed By: #### 4 537-7 #### [facility] CLIA [id number] [address] [place] [address] [place] Hematocrit (Bld) [Volume fraction] 48.1 % Normal 39.0-51.0 [facility] Comment on above: Order Comment: Speci men Type: BLOOD SPECIMEN Ordering Facility: [facility] Address: [address] [place] [address] Performed By: #### 4 537-7 #### [facility] CLIA [id number] [address] [place] [address] [place] Hemoglobin (Bld) [Mass/Vol] 16.7 g/dL Normal 13.0-17.0 [facility] Comment on above: Order Comment: Speci men Type: BLOOD SPECIMEN Ordering Facility: [facility] Address: [address] [place] [address] Performed By: #### 4 537-7 #### [facility] CLIA [id number] [address] [place] [address] [place] MCH (RBC) [Entitic mass] 31.3 pg Normal 26.0-34.0 [facility] Comment on above: Order Comment: Speci men Type: BLOOD SPECIMEN Ordering Facility: [facility] Address: [address] [place] [address] Performed By: #### 4 537-7 #### [facility] CLIA [id number] [address] [place] [address] [place] MCHC (RBC) [Mass/Vol] 34.7 g/dL Normal 30.5-36.0 [facility] Comment on above: Order Comment: Speci men Type: BLOOD SPECIMEN Ordering Facility: [facility] Address: [address] [place] [address] Performed By: #### 4 537-7 #### [facility] CLIA [id number] [address] [place] [address] [place] MCV (RBC) [Entitic vol] 90.2 fL Normal 80.0-100.0 [facility] Comment on above: Order Comment: Speci men Type: BLOOD SPECIMEN Ordering Facility: [facility] Address: [address] [place] [address] Performed By: #### 4 537-7 #### [facility] CLIA [id number] [address] [place] [address] [place] Nucleated RBC (Bld) [#/Vol] 10*3/uL Normal <0.01 [facility] Comment on above: Order Comment: Speci men Type: BLOOD SPECIMEN Ordering Facility: [facility] Address: [address] [place] [address] Performed By: #### 4 537-7 #### [facility] CLIA [id number] [address] [place] [address] [place] Platelet mean volume (Bld) [Entitic vol] 11.3 fL Normal 9.0-12.7 [facility] Comment on above: Order Comment: Speci men Type: BLOOD SPECIMEN Ordering Facility: [facility] Address: [address] [place] [address] Performed By: #### 4 537-7 #### [facility] CLIA [id number] [address] [place] [address] [place] Platelets (Bld) [#/Vol] 211 10*3/uL Normal 150-400 [facility] Comment on above: Order Comment: Speci men Type: BLOOD SPECIMEN Ordering Facility: [facility] Address: [address] [place] [address] Performed By: #### 4 537-7 #### [facility] CLIA [id number] [address] [place] [address] [place] RBC (Bld) [#/Vol] 5.33 10*6/uL Normal 4.20-6.00 [facility] Comment on above: Order Comment: Speci men Type: BLOOD SPECIMEN Ordering Facility: [facility] Address: [address] [place] [address] Performed By: #### 4 537-7 #### [facility] CLIA [id number] [address] [place] [address] [place] WBC (Bld) [#/Vol] 12.27 10*3/uL High 3.70-11.00 [facility] Comment on above: Order Comment: Speci men Type: BLOOD SPECIMEN Ordering Facility: [facility] Address: [address] [place] [address] Performed By: #### 4 537-7 #### [facility] CLIA [id number] [address] [place], [place] [address] [place] Comprehensive metabolic 2000 panelon 11-05-2024 Albumin [Mass/Vol] 4.1 g/dL Normal 3.9-4.9 [facility] Comment on above: Order Comment: Speci men Type: BLOOD SPECIMEN Ordering Facility: [facility] Address: [address] [place] [address] Performed By: #### 3 3935-8 #### [facility] CLIA [id number] [address] [place] [address] [place] ALP [Catalytic activity/Vol] 71 U/L Normal 38-113 [facility] Comment on above: Order Comment: Speci men Type: BLOOD SPECIMEN Ordering Facility: [facility] Address: [address] [place] [address] Performed By: #### 3 3935-8 #### [facility] CLIA [id number] [address] [place] [address] [place] ALT With P-5'-P [Catalytic activity/Vol] 30 U/L Normal 10-54 [facility] Comment on above: Order Comment: Speci men Type: BLOOD SPECIMEN Ordering Facility: [facility] Address: [address] [place] [address] Performed By: #### 3 3935-8 #### [facility] CLIA [id number] [address] [place] [address] [place] Anion gap [Moles/Vol] 18 mmol/L High 8-15 [facility] Comment on above: Order Comment: Speci men Type: BLOOD SPECIMEN Ordering Facility: [facility] Address: [address] [place] [address] Performed By: #### 3 3935-8 #### [facility] CLIA [id number] [address] [place] [address] [place] AST With P-5'-P [Catalytic activity/Vol] 22 U/L Normal 14-40 [facility] Comment on above: Order Comment: Speci men Type: BLOOD SPECIMEN Ordering Facility: [facility] Address: [address] [place] [address] Performed By: #### 3 3935-8 #### [facility] CLIA [id number] [address] [place], [place] [address] [place] Bilirubin [Mass/Vol] 1.5 mg/dL High 0.2-1.3 [facility] Comment on above: Order Comment: Speci men Type: BLOOD SPECIMEN Ordering Facility: [facility] Address: [address] [place] [address] Performed By: #### 3 3935-8 #### [facility] CLIA [id number] [address] [place] [address] [place] Calcium [Mass/Vol] 9.9 mg/dL Normal 8.5-10.2 [facility] Comment on above: Order Comment: Speci men Type: BLOOD SPECIMEN Ordering Facility: [facility] Address: [address] [place] [address] Performed By: #### 3 3935-8 #### [facility] CLIA [id number] [address] [place] [address] [place] Chloride [Moles/Vol] 103 mmol/L Normal 98-107 [facility] Comment on above: Order Comment: Speci men Type: BLOOD SPECIMEN Ordering Facility: [facility] Address: [address] [place] [address] Performed By: #### 3 3935-8 #### [facility] CLIA [id number] [address] [place] [address] [place] CO2 [Moles/Vol] 19 mmol/L Low 22-30 [facility] Comment on above: Order Comment: Speci men Type: BLOOD SPECIMEN Ordering Facility: [facility] Address: [address] [place], [place] [address] Performed By: #### 3 3935-8 #### [facility] CLIA [id number] [address] [place], [place] [address] [place] Creatinine [Mass/Vol] 1.36 mg/dL High 0.73-1.22 [facility] Comment on above: Order Comment: Speci men Type: BLOOD SPECIMEN Ordering Facility: [facility] Address: [address] [place] [address] Performed By: #### 3 3935-8 #### [facility] CLIA [id number] [address] [place] [address] [place] Creatinine and Glomerular filtration rate.predicted panel (S/P/Bld) 56 mL/min/1.73m??? Low >=60 [facility] Comment on above: Order Comment: Jackelyn zaldivar Type: BLOOD SPECIMEN Ordering Facility: [facility] Address: [address] [place] [address] Result Comment: Nellie mated Glomerular Filtration Rate (eGFR) is calculated using the 2020 CKD-EPI creatinine equation. This equation utilizes serum creatinine, sex, and age as parameters. The creatinine assay has traceable calibration to isotope dilution-mass spectrometry. Refer to KDIGO guidelines for clinical interpretation. In patients with unstable renal function, e.g. those with acute kidney injury, the eGFR may not accurately reflect actual GFR. Performed By: #### 3 3935-8 #### [facility] CLIA [id number] [address] [place] [address] [place] Glucose [Mass/Vol] 136 mg/dL High 74-99 [facility] Comment on above: Order Comment: Jackelyn zaldivar Type: BLOOD SPECIMEN Ordering Facility: [facility] Address: [address] [place] [address] Result Comment: The [place] [employer] (ADA) provides guidance for cutoff values for fasting glucose and random glucose. The ADA defines fasting as no caloric intake for at least 8 hours. Fasting plasma glucose results between 100 to 125 mg/dL indicate increased risk for diabetes (prediabetes). Fasting plasma glucose results greater than or equal to 126 mg/dL meet the criteria for diagnosis of diabetes. In the absence of unequivocal hyperglycemia, results should be confirmed by repeat testing. In a patient with classic symptoms of hyperglycemia or hyperglycemic crisis, random plasma glucose results greater than or equal to 200 mg/dL meet the criteria for diagnosis of diabetes. Reference: Standards of Medical Care in Diabetes 2016, [place] [employer]. Diabetes Care. 2016.39(Suppl 1). Performed By: #### 3 3935-8 #### [facility] CLIA [id number] [address] [place] [address] [place] Potassium [Moles/Vol] 3.4 mmol/L Low 3.7-5.1 [facility] Comment on above: Order Comment: Speci men Type: BLOOD SPECIMEN Ordering Facility: [facility] Address: [address] [place] [address] Performed By: #### 3 3935-8 #### [facility] CLIA [id number] [address] [place] [address] [place] Protein [Mass/Vol] 7.2 g/dL Normal 6.3-8.0 [facility] Comment on above: Order Comment: Speci men Type: BLOOD SPECIMEN Ordering Facility: [facility] Address: [address] [place] [address] Performed By: #### 3 3935-8 #### [facility] CLIA [id number] [address] [place] [address] [place] Sodium [Moles/Vol] 140 mmol/L Normal 136-144 [facility] Comment on above: Order Comment: Speci men Type: BLOOD SPECIMEN Ordering Facility: [facility] Address: [address] [place] [address] Performed By: #### 3 3935-8 #### [facility] CLIA [id number] [address] [place] [address] [place] Urea nitrogen [Mass/Vol] 27 mg/dL High 9-24 [facility] Comment on above: Order Comment: Speci men Type: BLOOD SPECIMEN Ordering Facility: [facility] Address: [address] [place] [address] Performed By: #### 3 3935-8 #### [facility] CLIA [id number] [address] [place], [place] [address] [place] ED NOTEon 11-05-2024 ED NOTE HNO ID: [id number] Author: AYSE GOMES, IBIS Service: Emergency Medicine Author Type: Registered Nurse Type: ED Notes Filed: 11/05/2024 17:31 Note Text: Report to [facility]. Patient is alert, talkative, no distress at time of transport. [facility] ED NOTE HNO ID: [id number] Author: TAMIKA RIBERA RN Service: Nursing Author Type: Registered Nurse Type: ED Notes Filed: 11/05/2024 16:43 Note Text: notified of bed assignment and transport ETA [facility] ED NOTE HNO ID: [id number] Author: TAMIKA RIBERA RN Service: Nursing Author Type: Registered Nurse Type: ED Notes Filed: 11/05/2024 16:40 Note Text: [facility] ETA 30-40 minutes [facility] ED NOTE HNO ID: [id number] Author: TAMIKA RIBERA RN Service: Nursing Author Type: Registered Nurse Type: ED Notes Filed: 11/05/2024 16:34 Note Text: Bed assignment [facility] 233-1 Report to [phone] [facility] ED NOTE HNO ID: [id number] Author: TAMIKA RIBERA RN Service: Nursing Author Type: Registered Nurse Type: ED Notes Filed: 11/05/2024 12:35 Note Text: Spoke to NOM at [facility]. He will have hospitalist call to consult with regarding possible admission. Patients training executive is at [facility]. [facility] ED NOTE HNO ID: [id number] Author: TAMIKA RIBERA RN Service: Nursing Author Type: Registered Nurse Type: ED Notes Filed: 11/05/2024 12:29 Note Text: Patient resting in bed with family at bedside. will go home and get patients c-pap. Patient aware of transfer and agreeable. [facility] ED NOTE HNO ID: [id number] Author: TAMIKA RIBERA, IBIS Service: Nursing Author Type: Registered Nurse Type: ED Notes Filed: 11/05/2024 12:00 Note Text: Patient resting in bed with lights lowered, pillow and blanket with family/friend at bedside. Call light in reach. Normal [facility] ED NOTE HNO ID: [id number] Author: TAMIKA RIBERA, IBIS Service: Nursing Author Type: Registered Nurse Type: ED Notes Filed: 11/05/2024 11:51 Note Text: Will hold Verapamil at this time. at bedside discussing plan of care with patient. Patient has been in NSR for 30 minutes. Per verbal order from , the medication will be held and administered in the event of another SVT episode. Normal [facility] ED NOTE HNO ID: [id number] Author: TAMIKA RIBERA RN Service: Nursing Author Type: Registered Nurse Type: ED Notes Filed: 11/05/2024 10:47 Note Text: This patient has been in and out of SVT and NSR over 10 times since presenting to ED. He can feel the rapid heart beat coming on as he starts to feel dizzy and Short of Breath. He remains consistent with denying pain. Normal [facility] ED NOTE HNO ID: [id number] Author: WESLY GUEVARA RN Service: ? Author Type: Registered Nurse Type: ED Notes Filed: 11/05/2024 09:57 Note Text: Opened in error Normal [facility] ED NOTE HNO ID: [id number] Author: TAMIKA RIBERA RN Service: Nursing Author Type: Registered Nurse Type: ED Notes Filed: 11/05/2024 09:19 Note Text: Presents feeling syncopal. This started about 2 days ago. He has been having episodes throughout the day. Denies chest pain, n/v or headaches. He has a hx of A-Fib. Denies any changes to his diet or activity. He avoids caffeine. Is adherent to medication. He reports not following up with his training executive for a while. Normal [facility] ED PROV NOTEon 11-05-2024 ED PROV NOTE HNO ID: [id number] Author: TABITHA MARTINS MD Service: Emergency Medicine Author Type: Physician Type: ED Provider Notes Filed: 11/06/2024 05:57 Note Text: ED Provider Note Patient Name: Ru Workman : 1955 SERVICE DATE: 6/21/25 History Patient presents with: Dizziness Shortness of Breath Non-smoker with past history of obstructive sleep apnea, and A-fib, presents to the ER with complaints of shortness of breath, dizziness intermittently for the preceding 3 days. Patient notes he had frequent episodes, causing difficulty in sleeping at night. Patient denies any chest pain. No nausea no vomiting no fevers. No sick contacts. No changes in patient's recent medications. Patient denies palpitations. Admits to generalized weakness. Patient did nothing for his symptoms. Patient describes his symptoms as sudden onset, short acting, however very recurrent. Weakness Severity: Moderate Onset quality: Sudden Duration: 3 days Timing: Intermittent Progression: Waxing and waning Chronicity: New Associated symptoms: fatigue and shortness of breath Associated symptoms: no chest pain, no headaches, no loss of consciousness, no nausea, no vomiting and no wheezing PAST MEDICAL HISTORY Diagnosis Date - A-fib (HCC) - BPH with obstruction/lower urinary tract symptoms - [facility] (obstructive sleep apnea) - Personal history of malignant melanoma of skin - Rupture of right Achilles tendon - Septic bursitis of elbow PAST SURGICAL HISTORY Procedure Laterality Date - PAST SURGICAL HISTORY OF Open knee reconstruction: 5 knee surgeries on right, 2 on left - PAST SURGICAL HISTORY OF arthroscopy left shoulder - PAST SURGICAL HISTORY OF ORIF left wrist with screws. - PAST SURGICAL HISTORY OF excision ganglion cysts - PAST SURGICAL HISTORY OF nose repair - PAST SURGICAL HISTORY OF Bilateral retinal detachment repair - REPAIR INCISIONAL HERNIA,REDUCIBLE N/A 10/14/2022 Umbilical hernia repair - TONSILLECTOMY AND ADENOIDECTOMY Tonsil/adenoidectomy - VASECTOMY UNI/BI SPX W/POSTOP SEMEN EXAMS - XCAPSL CTRC RMVL INSJ IO LENS PROSTH W/O ECP Bilateral FAMILY HISTORY Problem Relation Age of Onset - Diabetes Father - Heart disease Father - Accidental Mother fire - Hypertension Sister - No Ocular Disease Other Social History Tobacco Use - Smoking status: Never Passive exposure: Never - Smokeless tobacco: Never Vaping Use - Vaping status: Never Used Substance and Sexual Activity - Alcohol use: Yes Comment: 2 shots whiskey nightly - Drug use: Never - Sexual activity: Not on file Comment: not asked ALLERGIES No Known Allergies Review of Systems Constitutional: Positive for fatigue. Respiratory: Positive for shortness of breath. Negative for wheezing. Cardiovascular: Negative for chest pain. Gastrointestinal: Negative for nausea and vomiting. Neurological: Positive for weakness. Negative for loss of consciousness and headaches. All other systems reviewed and are negative. Physical Exam Vitals BP Pulse Temp Temp src Resp SpO2 Weight Height 11/05/24 0910 11/05/24 0908 11/05/24 0908 11/05/24 0908 11/05/24 0908 11/05/24 0908 11/05/24 0908 -- 126/101 (!) 147 36.4 ?C (97.5 ?F) Temporal Art 18 99 % 104.3 kg (230 lb) Physical Exam Vitals and nursing note reviewed. Constitutional: General: He is not in acute distress. Appearance: Normal appearance. He is not ill-appearing or toxic-appearing. HENT: Head: Normocephalic and atraumatic. Mouth/Throat: Mouth: Mucous membranes are moist. Pharynx: No pharyngeal swelling or oropharyngeal exudate. Eyes: General: Right eye: No discharge. Left eye: No discharge. Neck: Thyroid: No thyromegaly. Vascular: No JVD. Cardiovascular: Rate and Rhythm: Regular rhythm. Tachycardia present. Pulmonary: Effort: Pulmonary effort is normal. No tachypnea, accessory muscle usage or respiratory distress. Breath sounds: No decreased breath sounds or wheezing. Chest: Chest wall: No mass or tenderness. Musculoskeletal: Cervical back: Normal range of motion. Right lower leg: No tenderness. No edema. Left lower leg: No tenderness. No edema. Lymphadenopathy: Cervical: No cervical adenopathy. Skin: General: Skin is warm and dry. Comments: Some healing areas of ecchymosis, bruising, scabbed lesions to his anterior shins, there is no pretibial edema however there is no leg swelling Inner aspect of right wrist, radial side, patient has a dog scratch, a 1 cm scabbed over lesion in the center, doing some serous fluid, however surrounding it, there is a pretty well-demarcated, approximately 3 cm area of increased erythema, warmth, tenderness, it is not consistent with other areas of bruising and color on his right forearm. There is no proximal streaking, there is no palpable cords, there is no tenderness outside of the area of erythema Neurological: (more content not included)... Normal [facility] EKGon 11-05-2024 Electrocardiogram Ventricular Rate : 7 6 BPM Atrial Rate : 76 BPM P-R Interval : 172 ms QRS Duration : 90 ms Q-T Interval : 360 ms QTC Calculation(Bazett) : 405 ms Calculated P Clark[place] : 58 degrees Calculated R [place] : -24 degrees Calculated T [place] : -36 degrees SINUS RHYTHM WITH MARKED SINUS ARRHYTHMIA INFERIOR INFARCT (CITED ON OR BEFORE 05-Nov-2024) ABNORMAL ECG WHEN COMPARED WITH ECG OF 05-Nov-2024 09:23, VENT. RATE HAS DECREASED by 73 bpm Confirmed by MD REY VINAYAK ([id number]) on 11/05/2024 10:56:58 PM NAME : RU WORKMAN PID : [id number] : 1955 Gender : Male Race : ORD : Procedure Date : Nov 05 2024 09:24:15 Edit Date : Nov 05 2024 22:57:02 Diagnosis: SINUS RHYTHM WITH MARKED SINUS ARRHYTHMIA INFERIOR INFARCT (CITED ON OR BEFORE 05-Nov-2024) ABNORMAL ECG WHEN COMPARED WITH ECG OF 05-Nov-2024 09:23, VENT. RATE HAS DECREASED by 73 bpm Confirmed by MD REY VINAYAK ([id number]) on 11/05/2024 10:56:58 PM Test Reason : Location : 191 : CARD ED Overread By : MD REY VINAYAK Edited By : MD REY VINAYAK Referred By : , Acquired by : JAN GOMEZ [facility] Electrocardiogram Ventricular Rate : 1 49 BPM QRS Duration : 84 ms Q-T Interval : 324 ms QTC Calculation(Bazett) : 510 ms Calculated R Clarkridge : -28 degrees Calculated T [place] : -65 degrees SUPRAVENTRICULAR TACHYCARDIA VS ATRIAL FLUTTER WITH 2:1 BLOCK LEFT VENTRICULAR HYPERTROPHY WITH REPOLARIZATION ABNORMALITY ( Rogelio product ) INFERIOR INFARCT , AGE UNDETERMINED ABNORMAL ECG WHEN COMPARED WITH ECG OF 28-Apr-2023 21:33, SIGNIFICANT CHANGES HAVE OCCURRED Confirmed by MD REY VINAYAK ([id number]) on 11/05/2024 10:56:49 PM NAME : JACINTARU PID : [id number] : 1955 Gender : Male Race : ORD : Procedure Date : Nov 05 2024 09:23:34 Edit Date : Nov 05 2024 22:56:50 Diagnosis: SUPRAVENTRICULAR TACHYCARDIA VS ATRIAL FLUTTER WITH 2:1 BLOCK LEFT VENTRICULAR HYPERTROPHY WITH REPOLARIZATION ABNORMALITY ( Lucile product ) INFERIOR INFARCT , AGE UNDETERMINED ABNORMAL ECG WHEN COMPARED WITH ECG OF 28-Apr-2023 21:33, SIGNIFICANT CHANGES HAVE OCCURRED Confirmed by MD REY VINAYAK ([id number]) on 11/05/2024 10:56:49 PM Test Reason : Location : 191 : LDCARD ED Overread By : MD REY VINAYAK Edited By : MD REY VINAYAK Referred By : , Acquired by : JAN GOMEZ [facility] HIGH SENSITIVITY TROPONIN To n 11-05-2024 Troponin T.cardiac High sensitivity method [Mass/Vol] 70 ng/L High <12 [facility] Comment on above: Order Comment: Jackelyn zaldivar Type: BLOOD SPECIMEN Ordering Facility: [facility] Address: [address] [place] [address] Performed By: #### H STNT #### [facility] CLIA [id number] [address] [place] [address] [facility] [place] Troponin T.cardiac High sensitivity method [Mass/Vol] 66 ng/L High <12 [facility] Comment on above: Order Comment: Jackelyn zaldivar Type: BLOOD SPECIMEN Ordering Facility: [facility] Address: [address] [place] [address] Performed By: #### H STNT #### [facility] CLIA [id number] [address] OF [place] HIGH SENSITIVITY TROPONIN T (INITIAL)on 11-05-2024 Troponin T.cardiac High sensitivity method [Mass/Vol] 108 ng/L High <12 [facility] Comment on above: Order Comment: Jackelyn zaldivar Type: BLOOD SPECIMEN Ordering Facility: [facility] Address: [address] [place] [address] Performed By: #### L [id number] #### [facility] CLIA [id number] [address] [place] [address] OF [place] HIGH SENSITIVITY TROPONIN T (SECOND)on 11-05-2024 Troponin T.cardiac High sensitivity method [Mass/Vol] 82 ng/L High <12 [facility] Comment on above: Order Comment: Jackelyn zaldivar Type: BLOOD SPECIMEN Ordering Facility: [facility] Address: [address] [place] [address] Performed By: #### 4 537-7 #### [facility] CLIA [id number] [address] [place] [address] [place] HIGH SENSITIVITY TROPONIN T (THIRD) 3 HRS AFTER INITIALon 11-05-2024 Troponin T.cardiac High sensitivity method [Mass/Vol] 71 ng/L High <12 [facility] Comment on above: Order Comment: Speci men Type: BLOOD SPECIMEN Ordering Facility: [facility] Address: [address] [place] [address] Performed By: #### 4 537-7 #### [facility] IA [id number] [address] [place] [address] OF [place] HISTORY PHYSICALon HISTORY PHYSICAL HNO ID: [id number] Author: YANNI ADAME PA-C Service: Hospital Medicine Author Type: Physician Head Grease Maker Type: H&P Filed: 11/05/2024 19:56 Note Text: Attestation signed by Brittnee Napier MD at 11/06/2024 8:07 PM Attending Note I have personally reviewed PA jc. Agree with above Randy and P. Brittnee Napier MD [facility] MEDICINE HISTORY AND PHYSICAL EXAM SERVICE DATE: 11/05/2024 SERVICE TIME: 5:53 PM Primary Care Physician: Ryan Edwards APRN.[facility] NIGHT AND WEEKEND COVERAGE: [facility] COVERAGE: Days: [phone], please page attending physician. Nights: [phone], please page [facility] Night coverage pager [phone]. Subjective CHIEF COMPLAINT: I feel like I'm going to pass out HPI: This is a 69 year old male with a PMH significant for Atrial Fibrillation on Coumadin, BPH, SHANNON, and HTN who presents today for evaluation of a near syncopal episode. The patient tells me that 2 days ago he woke up not feeling well with minimal energy and easily fatigued. He thought it was because he did not sleep well so he went to bed early the next night. He tells me that he woke up this morning not feeling well again. He then noticed that with minimal exertion he had become lightheaded and dizzy. He felt like he could pass out. He tells me that he has a history of atrial fibrillation that occurred 5 years ago. He has been managed with oral Cardizem and is anticoagulated with Coumadin. He follows with the [facility] for Cardiology services but cannot remember the name of the last provider that he saw in the office which was over a year ago. His last INR check was high in the 4 range. This is managed by PCP Dr. Edwards at [place] office. He tells me that he has otherwise been in his usual state of health. No recent illnesses or sick contacts. No recent travel. No fever, chills, headache, visual changes, URI symptoms, chest pain, shortness of breath, cough, wheezing, abdominal pain, nausea, vomiting, diarrhea, constipation, bloody stools, urinary symptoms, skin changes, peripheral edema, paresthesias or focal weaknesses. [place] ED Course: HR 149. WBC 12.27, TB 1.5, BUN 27 and Cr 1.36, K+ 3.4, HS Troponins 108, 82, 71, BNP 1235, INR 1.8. CXR negative for acute chest process. EKG showed SVT (149) without ST-T changes or STEMI. Received 500 cc bolus and 40 mEq of Kcl in the ED. The patient was transferred to [facility] under medicine for further evaluation management of SVT. PAST MEDICAL HISTORY Diagnosis Date A-fib (HCC) BPH with obstruction/lower urinary tract symptoms SHANNON (obstructive sleep apnea) Personal history of malignant melanoma of skin Rupture of right Achilles tendon Septic bursitis of elbow PAST SURGICAL HISTORY Procedure Laterality Date PAST [...] HERNIA,REDUCIBLE N/A 10/14/2022 Umbilical hernia repair TONSILLECTOMY AND ADENOIDECTOMY Tonsil/adenoidectomy VASECTOMY UNI/BI SPX W/POSTOP SEMEN EXAMS XCAPSL CTRC RMVL INSJ IO LENS PROSTH W/O ECP Bilateral FAMILY HISTORY Problem Relation Age of Onset Diabetes Father Heart disease Father Accidental Mother fire Hypertension Sister No Ocular Disease Other Social History Tobacco Use Smoking status: Never Passive exposure: Never Smokeless tobacco: Never Vaping Use Vaping status: Never Used Substance Use Topics Alcohol use: Yes Comment: 2 shots whiskey nightly Drug use: Never PRIOR TO ADMISSION MEDICATIONS: Cannot display prior to admission medications because the patient has not been admitted in this contact. ALLERGIES No Known Allergies REVIEW OF SYSTEM: GENERAL: No weight loss, malaise or fevers HEENT: Negative for frequent or significant headaches, No changes in hearing or vision, no nose bleeds or other nasal problems NECK: Negative for lumps, goiter, pain and significant neck swelling RESPIRATORY: Negative for cough, hemoptysis, wheezing, COPD, dyspnea or shortness of breath CARDIOVASCULAR: See HPI GI: No nausea, vomiting, or diarrhea : No history of dysuria, frequency or incontinence MUSCULOSKELETAL: Negative for joint pain or swelling, back pain or muscle pain SKIN: Negative for lesions, rash, and itching PSYCH: Negative for sleep disturbance, mood disorder and recent psychosocial stressors HEMATOLOGY/LYMPHOLOGY: Negative for prolonged bleeding, bruising easily or swollen nodes ENDOCRINE: Negative for cold (more content not included)... Normal [facility] Lipase SerPl-cCncon 11-06-19 25 Lipase [Catalytic activity/Vol] 12 U/L Low 16-61 [facility] Comment on above: Order Comment: Speci men Type: BLOOD SPECIMEN Ordering Facility: [facility] Address: [address] [place] [address] Performed By: #### 3 3935-8 #### [facility] CLIA [id number] [address] [place], [place] [address] [place] [address] [place] Magnesium SerPl-mCncon 11-05 Magnesium [Mass/Vol] 1.8 mg/dL Normal 1.7-2.3 [facility] Comment on above: Order Comment: Jackelyn zaldivar Type: BLOOD SPECIMEN Ordering Facility: [facility] Address: [address] [place] [address] Performed By: #### 3 3935-8 #### [facility] CLIA [id number] [address] [place] [address] [place] NT-proBNP SerPl-ncon 11-05 Natriuretic peptide.B prohormone N-Terminal [Mass/Vol] 1235 pg/mL High <125 [facility] Comment on above: Order Comment: Jackelyn zaldivar Type: BLOOD SPECIMEN Ordering Facility: [facility] Address: [address] [place] [address] Performed By: #### 3 3762-6 #### [facility] CLIA [id number] [address] [place] [address] [place] PT panel Coag (PPP)on 2024 INR Coag (PPP) [Relative time] 1.8 {INR} High 0.9-1.3 [facility] Comment on above: Order Comment: Jackelyn zaldivar Type: BLOOD SPECIMEN Ordering Facility: [facility] Address: [address] [place] [address] Result Comment: Grace min K Antagonist (VKA) Therapeutic Range: INR 2 to 3 (Target INR of 2.5) Note: For patients treated with VKA drugs, such as warfarin, the [employer] 2012 Guideline recommends a therapeutic INR range of 2 to 3 (target INR of 2.5). This recommendation includes high-risk patients with antiphospholipid syndrome with previous arterial or venous thromboembolism, current-generation mechanical or bioprosthetic aortic heart valve replacement. Note: Patients with mechanical aortic valve replacement and additional risk factors for thromboembolic events (atrial fibrillation, previous thromboembolism, LV dysfunction, hypercoagulable conditions) or an older generation mechanical AVR (i.e., ball in-Cage) or any mechanical MVR should have a INR therapeutic range of 2.5 to 3.5 (target INR of 3). Genna GH, et al. Chest 2012, 141:7S-47S Cecilio RA, et al. [facility] 2017, 70: 252-289 Performed By: #### 1 4979-9, 74292-2 #### [facility] CLIA [id number] [address] [place] [address] [place] PT Coag (PPP) [Time] 18.4 s High <13.1 [facility] Comment on above: Order Comment: Speci men Type: BLOOD SPECIMEN Ordering Facility: [facility] Address: [address] [place] [address] Performed By: #### 1 4979-9, 96858-9 #### [facility] CLIA [id number] [address] [place] [address] [place] TSH SerPl-aCncon 11-05-2024 TSH Qn 3.680 m[IU]/L Normal 0.270-4.200 [facility] Comment on above: Order Comment: Speci men Type: BLOOD SPECIMEN Ordering Facility: [facility] Address: [address] [place] [address] Performed By: #### 3 3935-8 #### [facility] CLIA [id number] [address] [place] [address] [place] Urinalysis complete panel (U )on 11-05-2024 Bacteria LM.HPF (Urine sed) [#/Area] Few Abnormal None Seen [facility] Comment on above: Order Comment: Speci men Type: URINE SPECIMEN Ordering Facility: [facility] Address: [address] [place] [address] Performed By: #### 2 4356-8 #### [facility] CLIA [id number] [address] [place] [address] [place] Bilirubin Ql (U) Normal [facility] Comment on above: Order Comment: Speci men Type: URINE SPECIMEN Ordering Facility: [facility] Address: [address] [place] [address] Result Comment: Unab le to perform macroscopic analysis???due to abnormal color. Performed By: #### 2 4356-8 #### [facility] CLIA [id number] [address] [place] [address] [place] CALCIUM OXALATE CRYSTALS (UA) Few Abnormal None Seen [facility] Comment on above: Order Comment: Speci men Type: URINE SPECIMEN Ordering Facility: [facility] Address: [address] [place] [address] Performed By: #### 2 4356-8 #### [facility] CLIA [id number] [address] [place] [address] [place] Clarity (Unsp spec) Slightly Cloudy Abnormal Clear [facility] Comment on above: Order Comment: Speci men Type: URINE SPECIMEN Ordering Facility: [facility] Address: [address] [place] [address] Performed By: #### 2 4356-8 #### [facility] CLIA [id number] [address] [place] [address] [place] Color (U) [employer] Abnormal Yellow [facility] Comment on above: Order Comment: Speci men Type: URINE SPECIMEN Ordering Facility: [facility] Address: [address] [place] [address] Performed By: #### 2 4356-8 #### [facility] CLIA [id number] [address] [place] [address] [place] Glucose Test strip (U) [Mass/Vol] Normal [facility] Comment on above: Order Comment: Speci men Type: URINE SPECIMEN Ordering Facility: [facility] Address: [address] [place] [address] Result Comment: Unab le to perform macroscopic analysis???due to abnormal color. Performed By: #### 2 4356-8 #### [facility] CLIA [id number] [address] [place] [address] [place] Hemoglobin Ql (U) Normal [facility] Comment on above: Order Comment: Speci men Type: URINE SPECIMEN Ordering Facility: [facility] Address: [address] [place] [address] Result Comment: Unab le to perform macroscopic analysis???due to abnormal color. Performed By: #### 2 4356-8 #### [facility] CLIA [id number] [address] [place] [address] [place] Hyaline casts (Urine sed) [#/Area] 4-10 /LPF Abnormal 0 /LPF [facility] Comment on above: Order Comment: Speci men Type: URINE SPECIMEN Ordering Facility: [facility] Address: [address] [place] [address] Performed By: #### 2 4356-8 #### [facility] CLIA [id number] [address] [place] [address] [facility] Ketones Ql (U) Normal [facility] Comment on above: Order Comment: Speci men Type: URINE SPECIMEN Ordering Facility: [facility] Address: [address] [place] [address] Result Comment: Unab le to perform macroscopic analysis???due to abnormal color. Performed By: #### 2 4356-8 #### [facility] CLIA [id number] [address] [place] [address] [facility] Leukocyte esterase Test strip Ql (U) Normal [facility] Comment on above: Order Comment: Speci men Type: URINE SPECIMEN Ordering Facility: [facility] Address: [address] [place] [address] Result Comment: Unab le to perform macroscopic analysis???due to abnormal color. Performed By: #### 2 4356-8 #### [facility] CLIA [id number] [address] [place] [address] [place] Nitrite Ql (U) Normal [facility] Comment on above: Order Comment: Speci men Type: URINE SPECIMEN Ordering Facility: [facility] Address: [address] [place] [address] Result Comment: Unab le to perform macroscopic analysis???due to abnormal color. Performed By: #### 2 4356-8 #### [facility] CLIA [id number] [address] [place] [address] [place] pH (U) Normal [facility] Comment on above: Order Comment: Speci men Type: URINE SPECIMEN Ordering Facility: [facility] Address: [address] [place] [address] Result Comment: Unab le to perform macroscopic analysis???due to abnormal color. Performed By: #### 2 4356-8 #### [facility] CLIA [id number] [address] [place] [address] [place] Protein (U) [Mass/Vol] Normal [facility] Comment on above: Order Comment: Speci men Type: URINE SPECIMEN Ordering Facility: [facility] Address: [address] [place] [address] Result Comment: Unab le to perform macroscopic analysis???due to abnormal color. Performed By: #### 2 4356-8 #### [facility] CLIA [id number] [address] [place] [address] [place] RBC LM.HPF (Urine sed) [#/Area] 0-3 /HPF Normal 0-3 /HPF [facility] Comment on above: Order Comment: Speci men Type: URINE SPECIMEN Ordering Facility: [facility] Address: [address] [place] [address] Performed By: #### 2 4356-8 #### [facility] CLIA [id number] [address] [place] [address] [place] Specific gravity (U) [Rel density] Normal [facility] Comment on above: Order Comment: Speci men Type: URINE SPECIMEN Ordering Facility: [facility] Address: [address] [place] [address] Result Comment: Unab le to perform macroscopic analysis???due to abnormal color. Performed By: #### 2 4356-8 #### [facility] CLIA [id number] [address] [place] [address] [place] Urobilinogen Ql (U) Normal [facility] Comment on above: Order Comment: Speci men Type: URINE SPECIMEN Ordering Facility: [facility] Address: [address] [place] [address] Result Comment: Unab le to perform macroscopic analysis???due to abnormal color. Performed By: #### 2 4356-8 #### [facility] CLIA [id number] [address] [place] [id number] [facility] WBC LM.HPF (Urine sed) [#/Area] 0-5 /HPF Normal 0-5 /HPF [facility] Comment on above: Order Comment: Speci men Type: URINE SPECIMEN Ordering Facility: [facility] Address: [address] [place] [address] Performed By: #### 2 4356-8 #### [facility] CLIA [id number] [address] [place], [place] [id number] [facility] XR CHEST 1V FRONTALon 2024 XR CHEST 1V FRONTAL * * *Final Report* * * DATE OF EXAM: Nov 05 2024 10:03AM LDX 5290 - XR CHEST 1V FRONTAL / PROCEDURE REASON: Dizziness * * * * Physician Interpretation * * * * EXAMINATION: CHEST RADIOGRAPH (SINGLE VIEW AP OR PA) CLINICAL HISTORY: Dizziness MQ: XC1_5 Comparison: 04/22/2023. RESULT: Lines, tubes, and devices: None. Lungs and pleura: No consolidation. No lung mass. No pleural effusion. Cardiomediastinal silhouette: Normal cardiomediastinal silhouette. Other: None. IMPRESSION: No acute radiographic abnormality. Train Announcer: PSCB Transcribe Date/Time: Nov 05 2024 10:38A Dictated by : MARZENA WATT MD This examination was interpreted and the report reviewed and electronically signed by: MARZENA WATT MD on Nov 05 2024 10:38AM EST [id number] Normal [facility] aPTT PPPon 11-05-2024 aPTT Coag (PPP) [Time] 35.2 s High 23.0-32.4 [facility] Comment on above: Order Comment: Jackelyn zaldivar Type: BLOOD SPECIMEN Ordering Facility: [facility] Address: [address] [place] [address] Performed By: #### 1 4979-9, 47020-8 #### [facility] CLIA [id number] [address] [place] [id number] [place] [facility] CNNURSEon 11-03-2024 CNNURSE Nurse Visit (AGINTML W) RU WORKMAN ([id number]) 1955 M Date Time Provider Department 11/03/24 8:20 AM NURSE INTM DARVIN LEWISI AGINTMLW During your visit today, we recorded the following information about you: Blood pressure 118/70 Dana Davis MA 11/03/2024 8:41 AM Signed Patient here for INR check. Last INR was 4.2 on 10/31/24 at that time Ryan had patient hold his coumadin that day then take 6 mg Thursday, Thursday. Patient's INR today was 1.8. Per conversation with Ryan Edwards CNP patient informed to take coumadin 6 mg Thursday, Thursday, 8 mg all other days and recheck in 2 weeks. Dana Davis MA Allergies As of Date: 11/03/2024 (No Known Allergies) Date Reviewed: 10/12/2024 Reviewed by: Wiliam George PA-C - Fully Assessed Reason for Visit: Coumadin/INR [1207] Primary Visit Diagnosis:Atrial fibrillation, unspecified type (HCC) [I48.91] Order(s):INR (POC) [3479077] Order #: [id number] Prescriptions as of 11/03/2024 - sildenafil (VIAGRA) 50 mg tablet TAKE 1 TABLET BY MOUTH EVERY DAY NEEDED - warfarin (COUMADIN) 4 mg tablet TAKE 2 TABLETS BY MOUTH EVERY DAY INSTRUCTED - warfarin (COUMADIN) 2 mg tablet Take 1 tablet by mouth daily as directed. - dilTIAZem CD (CARDIZEM CD, CARTIA XT) 240 mg 24 hr capsule TAKE 1 CAPSULE BY MOUTH EVERY DAY - VIT B COMPLEX 100 COMBO NO.2 ORAL Take by mouth. Problem List As Of Date 11/03/2024 Noted Resolved ENTHESOPATHY OF KNEE [726.6] 10/10/2003 PERS HX MALIG SKIN MELANOMA [Z85.820] 10/17/2003 SURGERY FOLLOW-UP [V67.0] 10/24/2003 A-fib (HCC) [I48.91] 02/26/2022 Elevated prostate specific antigen (PSA) [R97.2*06/18/2022 Preop examination [Z01.818] 04/20/2023 SHANNON (obstructive sleep apnea) [G47.33] 04/20/2023 Elevated BP without diagnosis of hypertension [*04/20/2023 Septic bursitis of elbow, left [M71.122] 04/22/2023 Cellulitis of left upper extremity [L03.114] 04/24/2023 Chest discomfort [R07.89] 04/28/2023 Localized edema [R60.0] 04/28/2023 Dyspnea on exertion [R06.09] 04/28/2023 Rupture of right Achilles tendon [S86.011A] 05/19/2023 Sepsis (HCC) [A41.9] 06/08/2023 09/18/2023 Malignant melanoma of torso excluding breast (H*09/14/2023 Hx of retinal detachment [Z86.69] 12/03/2023 Tinnitus of both ears [H93.13] 09/19/2024 Sensorineural hearing loss, asymmetrical [H90.3]09/19/2024 Benign prostatic hyperplasia without lower urin*10/04/2024 Primary hypertension [I10] 10/04/2024 Encounter Status:Closed by DANA DAVIS on 11/03/24 [facility] CNTHERAPYon 11-02-2024 CNTHERAPY OT/PT/Speech Visit ( AKOTB) RU WORKMAN ([id number]) 1955 M Date Time Provider Department 11/02/24 11:30 AM ANDRÉS OTT Date Time Provider Department Center 11/02/2024 11:30 AM [id number], ANAS*OPHELIA [facility] Reason for Visit: Occupational Therapy [504] Primary Visit Diagnosis:Rupture of extensor tendon of finger [S56.419A] Other Visit Diagnosis:Decreased range of motion of left thumb [M25.642] Allergies As of Date: 11/02/2024 (No Known Allergies) Date Reviewed: 10/12/2024 Reviewed by: Wiliam George PA-C - Fully Assessed Prescriptions as of 11/02/2024 - sildenafil (VIAGRA) 50 mg tablet TAKE 1 TABLET BY MOUTH EVERY DAY NEEDED - warfarin (COUMADIN) 4 mg tablet TAKE 2 TABLETS BY MOUTH EVERY DAY INSTRUCTED - warfarin (COUMADIN) 2 mg tablet Take 1 tablet by mouth daily as directed. - dilTIAZem CD (CARDIZEM CD, CARTIA XT) 240 mg 24 hr capsule TAKE 1 CAPSULE BY MOUTH EVERY DAY - VIT B COMPLEX 100 COMBO NO.2 ORAL Take by mouth. Letter Text Normal [facility] [id number] 10-31-2024 [id number] O ID: [id number] Author: ANDRÉS OTT OTR/Olga Service: ? Author Type: Occupational Therapist Type: [id number] Filed: 10/31/2024 13:18 Note Text: [facility] Occupational Therapy Plan of Care Certification Patient Name: Ru Workman : 1955 CC #: [id number] Date: 10/28/2024 To: Pancho Pino MD From Therapist: PANCHO Fox/Olga RE: Patient Certification/ Recertification Your review, approval and electronic signature are required in order to comply with Payor: [facility] MEDICARE / Plan: [facility] MEDICARE HMO / Product Type: HMO / regulations. The identified Occupational Therapy PLAN OF CARE for the patient is as follows: S56.419A Rupture of extensor tendon of finger (primary encounter diagnosis) M79.642 Left hand pain PLAN OF CARE UPDATE: Assessment: Ru Workman demonstrates improvements in gripping. The patient has progressed toward goals. Patient continues to present with impairments in independence in exercise, overall function, range of motion, and strength that interfere with lifting, physical activities, gripping, pinching, twisting, pushing, pulling, carrying, weight bearing . Current prognosis is Good due to: good overall health status . The patient will benefit from continued skilled therapy services to meet the updated goals for this plan of care as noted below. PLAN FOR NEXT VISIT: Update home program as indicated, Initiate PROM/ strenghtening in 2 weeks Goals for Episode of Care: established 09/06/24 , reviewed on 09/15/24 and 10/28/2024 Patient reported outcome of physical function will increase T-score by a minimum 5 points.(A, ongoing) Patient will report a good understanding of diagnosis and OT recommendations for progression of program.(PA, ongoing) Patient will increase AROM of Left hand to WFL of L thumb in order to be able to improve function for moderate to heavy functional tasks. ( PA, ongoing) Patient will independently demonstrate correct application of CUSTOM orthosis and verbalize understanding of proper wear/care. (A) Patient will increase Left chair pad maker strength to Within 50% R hand, so that patient will be able to improve function for basic self-care tasks and moderate to heavy functional tasks. ( N T, not indicated) Patient will increase Left pinch within 50% so that patient will be able to improve function for basic self-care tasks and moderate to heavy functional tasks. ( N T) Patient will report a good understanding of edema control, scar / wound management throughout therapy plan of care to promote non-adherent / non-tender soft tissue.(PA, ongoing) Patient will demonstrate or report an increase in Fine Motor Coordination through testing or performance compared to initial evaluation. ( N T ) Goal Montalvo A=achieved PA=partially achieved NA=not achieved NT=not tested Patient Goals: Resume normal function of hand Time Frame for Goals and Treatment : 12/27/24 Patient Goals: Resume normal function of hand Planned Interventions, Frequency, and Duration: 1x/week, 8 weeks Total Number of Visits Planned: 12 Planned Treatment Interventions: Custom orthosis fabrication, Therapeutic exercise (68301), Therapeutic activities (99619), Manual therapy (57476), Self-skilled nursing management (96138) For further details regarding this patient refer to the Occupational Therapy electronically documented visit dated 10/28/2024. Provider Attestation I have reviewed the treatment plan for Ru Workman CC# [id number] for the period of 10/28/24 -- 12/27/24, established on 10/28/2024. Signature certifies the need for therapy services. Normal [facility] CNNURSEon 10-31-2024 CNNURSE Nurse Visit (AGINTML W) RU WORKMAN ([id number]) 1955 M Date Time Provider Department 10/31/24 8:20 AM NURSE TARAS KHAN AGINTMLW During your visit today, we recorded the following information about you: Blood pressure 128/76 Dana Davis MA 10/31/2024 8:49 AM Signed Patient here for INR check. Last INR was 2.6 on 09/28/24. Patient is currently taking coumadin 6 mg on and 8 mg all other days, denies missing any doses. Patient's INR today was 4.2. Per conversation with Ryan Edwards CNP informed patient to hold coumadin today then take 6 mg on Thursday, Thursday and recheck on . Patient verbalized understanding. Dana Davis MA Allergies As of Date: 10/31/2024 (No Known Allergies) Date Reviewed: 10/12/2024 Reviewed by: Wiliam George PA-C - Fully Assessed Reason for Visit: Coumadin/INR [1207] Primary Visit Diagnosis:Atrial fibrillation, unspecified type (HCC) [I48.91] Order(s):INR (POC) [6608054] Order #: [id number] Prescriptions as of 10/31/2024 - sildenafil (VIAGRA) 50 mg tablet TAKE 1 TABLET BY MOUTH EVERY DAY NEEDED - warfarin (COUMADIN) 4 mg tablet TAKE 2 TABLETS BY MOUTH EVERY DAY INSTRUCTED - warfarin (COUMADIN) 2 mg tablet Take 1 tablet by mouth daily as directed. - dilTIAZem CD (CARDIZEM CD, CARTIA XT) 240 mg 24 hr capsule TAKE 1 CAPSULE BY MOUTH EVERY DAY - VIT B COMPLEX 100 COMBO NO.2 ORAL Take by mouth. Problem List As Of Date 10/31/2024 Noted Resolved ENTHESOPATHY OF KNEE [726.6] 10/10/2003 PERS HX MALIG SKIN MELANOMA [Z85.820] 10/17/2003 SURGERY FOLLOW-UP [V67.0] 10/24/2003 A-fib (HCC) [I48.91] 02/26/2022 Elevated prostate specific antigen (PSA) [R97.2*06/18/2022 Preop examination [Z01.818] 04/20/2023 SHANNON (obstructive sleep apnea) [G47.33] 04/20/2023 Elevated BP without diagnosis of hypertension [*04/20/2023 Septic bursitis of elbow, left [M71.122] 04/22/2023 Cellulitis of left upper extremity [L03.114] 04/24/2023 Chest discomfort [R07.89] 04/28/2023 Localized edema [R60.0] 04/28/2023 Dyspnea on exertion [R06.09] 04/28/2023 Rupture of right Achilles tendon [S86.011A] 05/19/2023 Sepsis (HCC) [A41.9] 06/08/2023 09/18/2023 Malignant melanoma of torso excluding breast (H*09/14/2023 Hx of retinal detachment [Z86.69] 12/03/2023 Tinnitus of both ears [H93.13] 09/19/2024 Sensorineural hearing loss, asymmetrical [H90.3]09/19/2024 Benign prostatic hyperplasia without lower urin*10/04/2024 Primary hypertension [I10] 10/04/2024 Encounter Status:Closed by DANA DAVIS on 10/31/24 Normal [facility] INR (POC)on 10-31-2024 INR Coag (PPP) [Relative time] 4.2 {INR} High 0.8 - 1.2 [facility] Internal Quality Check Acceptable [facility] Interpretation and review of laboratory results Abnormal [facility] Location:[facility], [address] [place] [address], [address] [facility] POINT OF CARE [facility] CNTHERAPYon 10-28-2024 CNTHERAPY OT/PT/Speech Visit ( AKOTB) RU WORKMAN ([id number]) 1955 M Date Time Provider Department 10/28/24 9:15 AM ANDRÉS OTT Date Time Provider Department Center 10/28/2024 9:15 AM [id number], ANAS*AKCHUNGB [facility] Reason for Visit: OT Progress Note [1655] Primary Visit Diagnosis:Rupture of extensor tendon of finger [S56.419A] Other Visit Diagnosis:Left hand pain [M79.642] Allergies As of Date: 10/28/2024 (No Known Allergies) Date Reviewed: 10/12/2024 Reviewed by: Wiliam George PA-C - Fully Assessed Prescriptions as of 11/02/2024 - sildenafil (VIAGRA) 50 mg tablet TAKE 1 TABLET BY MOUTH EVERY DAY NEEDED - warfarin (COUMADIN) 4 mg tablet TAKE 2 TABLETS BY MOUTH EVERY DAY INSTRUCTED - warfarin (COUMADIN) 2 mg tablet Take 1 tablet by mouth daily as directed. - dilTIAZem CD (CARDIZEM CD, CARTIA XT) 240 mg 24 hr capsule TAKE 1 CAPSULE BY MOUTH EVERY DAY - VIT B COMPLEX 100 COMBO NO.2 ORAL Take by mouth. Business Line Manager: Addendum Therapy (PT/OT/Speech/Resp) ID: [id number] 10/28/2024 9:55 AM Author: ANDRÉS OTT Signed by ANDRÉS OTT OTR/L on 10/28/2024 at 9:55 AM * * * This document replaces document [id number] * * * Document text: Program_ID:[id number] Access Code: [email or web address] URL: [email or web address]/ Date: 10-28-2024 Prepared By: Andrés Ott Program Notes For the first two exercises, vary the wrist positionANDnbsp;ANDnbsp; Exercises - Seated Thumb IP Flexion AROM with Blocking - 3 x daily - 7 x weekly - 3 sets - 10 reps - Seated Thumb MP Extension AROM with Blocking - 3 x daily - 7 x weekly - 3 sets - 10 reps - Thumb Radial Adduction with Thumb Flexion AROM on Table - 3 x daily - 7 x weekly - 1 sets - 10 reps - Seated Thumb Palmar Abduction Adduction AROM - 3 x daily - 7 x weekly - 1 sets - 10 reps - Thumb Opposition - 3 x daily - 7 x weekly - 1 sets - 10 reps Normal [facility] THERAPY NTon 10-28-2024 THERAPY NT HNO ID: [id number] Author: ANDRÉS OTT OTR/Olga Service: ? Author Type: Occupational Therapist Type: Therapy (PT/OT/Speech/Resp) Filed: 10/28/2024 09:55 Note Text: Program_ID:[id number] Access Code: [email or web address] URL: [email or web address]/ Date: 10-28-2024 Prepared By: Andrés Ott Program Notes For the first two exercises, vary the wrist position Exercises - Seated Thumb IP Flexion AROM with Blocking - 3 x daily - 7 x weekly - 3 sets - 10 reps - Seated Thumb MP Extension AROM with Blocking - 3 x daily - 7 x weekly - 3 sets - 10 reps - Thumb Radial Adduction with Thumb Flexion AROM on Table - 3 x daily - 7 x weekly - 1 sets - 10 reps - Seated Thumb Palmar Abduction Adduction AROM - 3 x daily - 7 x weekly - 1 sets - 10 reps - Thumb Opposition - 3 x daily - 7 x weekly - 1 sets - 10 reps Normal [facility] CNOVon 10-12-2024 CNOV Office Visit (AGHWW1 ) RU WORKMAN ([id number]) 1955 M Date Time Provider Department 10/12/24 11:00 AM WILIAM GEORGE AGHWW1 During your visit today, we recorded the following information about you: Respiration Weight Height 20/minute 104.8 kg 1.829 m Wiliam George PA-C 10/12/2024 12:57 PM Signed ORTHOPAEDIC OFFICE NOTE Patient presents with: Left Thumb - Post Op: Denies pain Postop Visit: 2nd POV, Post op day 5.5 weeks SURGEON Pancho Pino MD PROCEDURE Transfer left palmaris longus tendon to left extensor pollicis longus tendon PROCEDURE DATE: 09/02/24 HISTORY OF PRESENT ILLNESS Ru is a 69-year-old male presenting for follow-up 5.5 weeks post-op for transfer of left palmaris longus tendon to left extensor pollicis longus tendon. Ru reports no significant changes in thumb function since the last visit. He has not initiated formal therapy exercises or stretches to allow the extensor tendon to heal. He denies pain since the surgery, stating, I haven't had one bit of pain since the day he did it. It's never hurt. He notes the presence of a firm area near the volar incision site, which he suspects may be scar tissue, but denies significant pain associated with it, stating, if you push on it, there's a little bit, but not a lot. Ru expresses concern about this surgery failing and the possibility of additional surgery, as he has work commitments lined up for the summer. He inquires if another surgery is needed, can the surgery could be postponed until the fall. Reviewed nursing note and current pain scale. PAIN EVALUATION No data found in the last 1 encounters. PAST MEDICAL HISTORY Diagnosis Date A-fib (HCC) BPH with obstruction/lower urinary tract symptoms SHANNON (obstructive sleep apnea) Personal history of malignant melanoma of skin Rupture of right Achilles tendon Septic bursitis of elbow PAST SURGICAL HISTORY Procedure Laterality Date PAST [...] HERNIA,REDUCIBLE N/A 10/14/2022 Umbilical hernia repair TONSILLECTOMY AND ADENOIDECTOMY Tonsil/adenoidectomy VASECTOMY UNI/BI SPX W/POSTOP SEMEN EXAMS XCAPSL CTRC RMVL INSJ IO LENS PROSTH W/O ECP Bilateral Social History Tobacco Use Smoking status: Never Passive exposure: Never Smokeless tobacco: Never Vaping Use Vaping status: Never Used Substance Use Topics Alcohol use: Yes Comment: couple times a week Drug use: Never Current Outpatient Medications Medication Sig sildenafil (VIAGRA) 50 mg tablet TAKE 1 TABLET BY MOUTH EVERY DAY NEEDED warfarin (COUMADIN) 4 mg tablet TAKE 2 TABLETS BY MOUTH EVERY DAY INSTRUCTED warfarin (COUMADIN) 2 mg tablet Take 1 tablet by mouth daily as directed. dilTIAZem CD (CARDIZEM CD, CARTIA XT) 240 mg 24 hr capsule TAKE 1 CAPSULE BY MOUTH EVERY DAY VIT B COMPLEX 100 COMBO NO.2 ORAL Take by mouth. No current facility-administered medications for this visit. ALLERGIES No Known Allergies Resp 20 Ht 6' 0 (1.83m) Wt 231 lb (104.8kg) BMI 31.32 kg/(m2). Review of systems: Musculoskeletal: (-) pain at rest in left hand/wrist, (+) mild tenderness with palpation of left wrist lump EXAM: - Musculoskeletal: - Left Thumb: - Incision lines intact, no drainage; scars maturing nicely. - Mild edema on dorsal aspect; no erythema or cellulitis. - Thumb held in slight flexion at MCP joint, but this is improved from last visit. - Able to perform some active extension at the thumb IP joint when isolated at the IP joint. - Unable to hold extension of left thumb IP or MP joints against gravity. - There is a firm, nodule noted to volar aspect of left wrist. No pain on palpation of this. - Neurological: Full sensation intact to all fingertips. - Cardiovascular: Capillary refill <3 seconds; radial pulse 2+. ASSESSMENT: (Z98.890) Postoperative state (primary encounter diagnosis) (S56.419A) Rupture of extensor tendon of finger PLAN: 1. Postoperative state (Z98.890) Rupture of extensor tendon of finger (S56.419A) Exam suggests extensor tendon repair remains intact. - Keep patient splinted for at least 2 more week to allow for more scarring of the tendon repair. - Instructed patient to remain seo-ezxzms-iylymye on left hand and wrist. - Hand therapist, Hannah, will guide range of motion progression and eventual strengthening in 2 weeks. - Briefly discussed potential alternative surgical method involving rerouting a flexor tendon if extensor tendon repair fails. Follow-up scheduled (more content not included)... Normal [facility] CNOVon 10-04-2024 CN Office Visit (AGINTM LW) RU WORKMAN ([id number]) 1955 Ger[place] Date Time Provider Department 10/04/24 9:20 AM RYAN EDWARDS During your visit today, we recorded the following information about you: Temperature Pulse Blood pressure Weight 97.6 degrees 64/minute 118/76 105.1 kg Height 1.829 m Ryan Edwards, CIERA.WAFFLE MACHINE OPERATOR 10/04/2024 1:50 PM Addendum Recording using ambient [employer] software for draft documentation of the visit was discussed with the patient/authorized b2b sales representative; all questions welcomed and answered. Patient/authorized b2b sales representative agreed to proceed Ru Workman is a 69 year old male here for a Medicare wellness visit. PMH HTN, Afib, elevated PSA, melanoma, SHANNON. Patient denies changes in health since last office visit. Reports feeling well. Denies concerns or complaints today. I reviewed patients past medical, surgical, social, and family histories today and updated chart. Allergies, chronic medications, and supplements were also reviewed and list is now up to date. Medicare Wellness Visit: - Passed cognitive exam. - No chest pain, palpitations, headaches, or dizziness. - No dyspnea, wheezing, or cough with normal activity; experiences dyspnea with exertion. - No edema in feet or ankles, but recently dropped a piece of wood on foot. - No known allergies. - Denies smoking, vaping, or chewing tobacco. - Diet low in salt and processed foods. HTN: Mr. Workman indicates that he is feeling well and denies any symptoms referable to elevated blood pressure. Specifically denies headache, chest pain, palpitations, dyspnea, claudication symptoms, orthopnea, fatigue, and PND. Patient denies any side effects of his medication(s) and is compliant with their regimen. He does not check BP's generally. Ru has limited mobility and can not participate in aerobic exercise. He watches his diet for sodium, low fat and low cholesterol some of the time. He is taking cardizem 240 mg daily. Afib: Dx 2020. He is taking coumadin 8 mg on M, , and 6 mg rest of days. He had colonoscopy last week and held coumadin and he missed his dose Thursday. Denies any symptoms related to afib, denies unusual bleeding. He does notice easy bruising. Reports mainly on forearm. He is also taking cardizem daily for management. This was started on this in [place] when he was diagnosed. He was seeing Dr [facility]. Medicare Wellness Visit: Elevated PSA/BPH: since at least 2013. Had prostate biopsy in 01/25/2014 for elevated PSA of 5.7 in [place]. 12/20/21 PSA 10.5. most recent PSA 01/07 of 8.81. He is seeing Dr Tai. He was last seen 12/30/22. He had MRI fusion bx on 06/26/22 path benign. Luts okay. Was on flomax with no noted change in Luts. He did stop this. Reported muscle wasting when taking. He was started on finsteride 5 mg daily for this in december. he has follow up on 01/05/[address] Tai. - Diagnosed with BPH; has had two negative biopsies. - Last seen by Dr. Flanagan about a year ago; next appointment scheduled for January. - No issues with urinary flow or incomplete emptying. Melanoma: Dx 1991, lower back. It was removed x 3. He goes yearly for check up. He is seeing DR Montalvo in [place] yearly for skin checks. He reports his due for OV. SHANNON: [id number] in [place]. He wears CPAP nightly. He reports it has worked well for him. States he is no longer tired and no longer takes naps. Hearing Loss: - Diagnosed with hearing loss; seen by ENT. - Considering hearing aids but was advised they may not be very effective. 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 Vision: - Sees exercise teacher Dr. Matthews annually; next appointment scheduled for December 01. - History of detached retinas. Periorbital Edema: - Noticed increased periorbital edema; denies allergies or family history of similar symptoms. Left Thumb: - Underwent flexor tendon transfer surgery on left thumb on September 02. - No pain post-surgery; limited range of motion due to incorrect positioning. - Follow-up appointment with therapist and home health assistant scheduled for next Thursday. Preventative: he is not interested in flu, COVID, or RSV vaccines. He has had 2 COVID vaccine. Last colonoscopy 2016 in [place], reports one polyp. He does not smoke or chew tobacco. He reports cutting back on alcohol. States stop drinking during the week. Reports drinking 8 cocktails on the weekends. Reports he cut back about a month ago. States he was drinking nightly Some elements of above documentation were copied from my progress note of 09/14/23 and have been reexamined and updated where appropriate. All elements reflect the current assessment and medical decision making today . Medicare Health Risk Assessment General Health Very good Exercise: Minutes/Day 40 min Exercise: Days/Week 7 (more content not included)... Normal [facility] CNNURSEon 09-28-2024 [facility] JACINTARU Nataliia ([id number]) 1955 M Date Time Provider Department 09/28/24 1:20 PM NURSE TARAS DUQUE During your visit today, we recorded the following information about you: Blood pressure 122/80 Cristine Boykin LPN 09/28/2024 1:27 PM Signed INR (POCT) Date Value Ref Range Status 09/28/2024 2.6 (H) 0.8 - 1.2 Final 09/28/24 1319 BP: 122/80 Pt in office for INR check as ordered by Ryan Edwards CNP. INR 2.6 today. Pt is currently taking warfarin 6 mg and 8 mg on other days. Per Ryan Edwards CNP pt to continue same dosage and recheck in 1 month. Pt aware and verbalized an understanding. Cristine Boykin LPN Allergies As of Date: 09/28/2024 (No Known Allergies) Date Reviewed: 09/14/2024 Reviewed by: Wiliam George PA-C - Fully Assessed Reason for Visit: Coumadin/INR [1207] Primary Visit Diagnosis:Atrial fibrillation, unspecified type (HCC) [I48.91] Order(s):INR (POC) [4401208] Order #: [id number] Prescriptions as of 09/28/2024 - warfarin (COUMADIN) 4 mg tablet TAKE 2 TABLETS BY MOUTH EVERY DAY INSTRUCTED - warfarin (COUMADIN) 2 mg tablet Take 1 tablet by mouth daily as directed. - dilTIAZem CD (CARDIZEM CD, CARTIA XT) 240 mg 24 hr capsule TAKE 1 CAPSULE BY MOUTH EVERY DAY - sildenafil (VIAGRA) 50 mg tablet Take 1 tablet by mouth once daily as needed. - VIT B COMPLEX 100 COMBO NO.2 ORAL Take by mouth. - vitamin D3-vit K1-vit MK4-MK7 50-500-1,500 mcg cap Take by mouth. Problem List As Of Date 09/28/2024 Noted Resolved ENTHESOPATHY OF KNEE [726.6] 10/10/2003 PERS HX MALIG SKIN MELANOMA [Z85.820] 10/17/2003 SURGERY FOLLOW-UP [V67.0] 10/24/2003 A-fib (HCC) [I48.91] 02/26/2022 Elevated prostate specific antigen (PSA) [R97.2*06/18/2022 Preop examination [Z01.818] 04/20/2023 SHANNON (obstructive sleep apnea) [G47.33] 04/20/2023 Elevated BP without diagnosis of hypertension [*04/20/2023 Septic bursitis of elbow, left [M71.122] 04/22/2023 Cellulitis of left upper extremity [L03.114] 04/24/2023 Chest discomfort [R07.89] 04/28/2023 Localized edema [R60.0] 04/28/2023 Dyspnea on exertion [R06.09] 04/28/2023 Rupture of right Achilles tendon [S86.011A] 05/19/2023 Sepsis (HCC) [A41.9] 06/08/2023 09/18/2023 Malignant melanoma of torso excluding breast (H*09/14/2023 Hx of retinal detachment [Z86.69] 12/03/2023 Tinnitus of both ears [H93.13] 09/19/2024 Sensorineural hearing loss, asymmetrical [H90.3]09/19/2024 Encounter Status:Closed by CRISTINE BOYKIN on 09/28/24 [facility] 09-19-2024 CNOV Office Visit (DALIA ) RU WORKMAN ([id number]) 1955 M Date Time Provider Department 09/19/24 10:00 AM EZIO RICHARDSON During your visit today, we recorded the following information about you: Ezio Richardson, AUD 09/19/2024 10:54 AM Signed [facility] AUDIOLOGIC EVALUATION REPORT Name: Ru Workman [facility]#: [id number] Date of Service: 09/19/2024 Date of : 1955 Age: [age] year old Referred by: No ref. provider found Referred for: Evaluation of suspected change in hearing, tinnitus, or balance. 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 Risk of Falls Documentation for over 65 years old: No history of falls reported so minimal to no risk IMPRESSIONS RIGHT EAR: Sensorineural hearing loss LEFT EAR: Sensorineural hearing loss AUDIOLOGIC EVALUATION Following is a brief interpretation of the obtained findings from the audiologic evaluation. Refer to the Auditory Test Record for complete audiometric results. The patient was counseled about the test findings and appropriate audiologic recommendations were made. SUMMARY: Audiogram can be viewed under Procedures. OTOSCOPY RIGHT EAR: Otoscopic inspection revealed ear canal was clear with an identifiable cone of light. LEFT EAR: Otoscopic inspection revealed ear canal was clear with an identifiable cone of light. TYMPANOMETRY Description of procedure: This test is an objective evaluation of middle ear function. CPT code: 97141 RIGHT EAR: Did not test. LEFT EAR: Did not test. ACOUSTIC REFLEXES Description of procedure: This test is an objective measure of auditory and facial nerve pathways. CPT code: 13120, 46376 RIGHT EAR PROBE EAR: (ipsi right stimulus ear; contralateral left stimulus ear): Acoustic Reflex Pattern Did not test Acoustic Reflex Decay (left stimulus ear): Did not test. LEFT EAR PROBE EAR: (ipsi left stimulus ear; contralateral right stimulus ear): Acoustic Reflex Pattern Did not test Acoustic Reflex Decay (right stimulus ear):Did not test. PURE TONE AUDIOMETRY AND SPEECH TESTING Description of procedure: This test is an objective evaluation hearing sensitivity via air and bone conduction and speech recognition testing. CPT code:37665 RIGHT EAR: Hearing Sensitivity: WNL through 3000 Hz sloping to mild SNHL Word Recognition Score: Excellent (90-100%). WRS is consistent with hearing sensitivity. Words were presented at 55 dB HL approximates (45-55 dB HL) intensity level for average conversational speech. The NU-6 Ordered by Difficulty Word List (10 words) was used for testing. LEFT EAR: Hearing Sensitivity: WNL through 3000 Hz sloping mild to moderately severe SNHL Word Recognition Score: Excellent (90-100%). WRS is consistent with hearing sensitivity. Words were presented at 50 dB HL which approximates (45-55 dB HL) intensity level for average conversational speech. The NU-6 Ordered by Difficulty Word List (10 words) was used for testing. SPEECH PERCEPTION TESTING (UNAIDED) Unaided speech perception testing was completed outside the sound hong ([id number]) where stimuli was calibrated at 70 girl friday for QuickSIN using recorded stimuli at 0 degrees azimuth. NOTE: Unaided results: QuickSIN Test Condition List # SNR Loss Degree Bilateral 1 AND 2 1 Normal/near normal (0-3 dB) During today's appointment, you endorsed difficulty hearing or understanding conversational partners while in the presence of background noise. To assess this, we had you repeat sentences in simulated background noise of varying degrees of loudness. For this test, you performed as well as normal hearing individuals using both ears. RECOMMENDATIONS * Continue medical follow-up with Lyssa Colón MD for asymmetry. * The patient was counseled regarding the need to continue to monitor hearing and have regular hearing assessments. * The patient was counseled about hearing conservation and use of noise protectors. Information about hearing protection devices was provided to the patient. If custom HPDs are desired, please call [phone] to schedule an EARMOLD IMPRESSION appointment. * The patient was counseled regarding effective communication strategies to enhance communication ability. * Call [phone] to schedule an appointment to assess y (more content not included)... Normal [facility] HEARING TEST/AUDIOGRAMon [facility] [id number] 09-15-2024 [id number] HNO ID: [id number] Author: ANDRÉS OTT OTR/Olga Service: ? Author Type: Occupational Therapist Type: [id number] Filed: 09/15/2024 12:30 Note Text: [facility] Rehabilitation [facility] Therapy Occupational Therapy Plan of Care Certification Patient Name: Ru Workman : 1955 [facility] #: [id number] Date: 09/15/2024 To: Pancho Pino MD From Therapist: PANCHO Fox/Olga RE: Patient Certification/ Recertification Your review, approval and electronic signature are required in order to comply with Payor: [facility] MEDIC[facility] / Plan: [facility] MEDICARE HMO / Product Type: HMO / regulations. The identified Occupational Therapy PLAN OF CARE for the patient is as follows: S56.419A Rupture of extensor tendon of finger (primary encounter diagnosis) M79.642 Left hand pain PLAN OF CARE UPDATE: Initiate active range of motion / transfer training in 4 weeks. Patient to contact OT for orthosis modifications as needed. 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 The patient has progressed toward some goals.Orthosis modifications made today at the request of MCKENNA. Patient verbalized good understanding of postoperative guidelines and precautions. Dr. Pino in agreement with delaying initiating range of motion for 4 weeks, until after next ortho appointment. Range of motion and strength testing not performed today due to post operative guidelines. Patient continues to present with impairments in overall function, patient reported outcome measures, and range of motion that interfere with lifting, physical activities, gripping, pinching, twisting, pushing, pulling, carrying, weight bearing . Current prognosis is Good due to: good overall health status . The patient will benefit from continued skilled therapy services to meet the updated goals for this plan of care as noted below. PLAN FOR NEXT VISIT: Patient to contact OT for orthosis modifications as needed. Initiate AROM / transfer training in 4 weeks after ortho follow up. Goals for Episode of Care: established 09/06/24 Progress note due 10/06 Re-cert due 12/05 Patient reported outcome of physical function will increase T-score by a minimum 5 points.(N A) Patient will report a good understanding of diagnosis and OT recommendations for progression of program.(PA, ongoing) Patient will increase AROM of Left hand to WFL of L thumb in order to be able to improve function for moderate to heavy functional tasks. ( N T) Patient will independently demonstrate correct application of CUSTOM orthosis and verbalize understanding of proper wear/care. (A) Patient will increase Left chair pad maker strength to Within 50% R hand, so that patient will be able to improve function for basic self-care tasks and moderate to heavy functional tasks. ( N T, not indicated Patient will increase Left pinch within 50% so that patient will be able to improve function for basic self-care tasks and moderate to heavy functional tasks. ( N T) Patient will report a good understanding of edema control, scar / wound management throughout therapy plan of care to promote non-adherent / non-tender soft tissue.(PA, ongoing) Patient will demonstrate or report an increase in Fine Motor Coordination through testing or performance compared to initial evaluation. ( N T ) Goal Montalvo A=achieved PA=partially achieved NA=not achieved NT=not tested Patient Goals: Resume normal function of hand Time Frame for Goals and Treatment : 11/14/24 Patient Goals: Resume normal function of hand Planned Interventions, Frequency, and Duration: 1x every other week, 8 weeks Total Number of Visits Planned: 5 Planned Treatment Interventions: Custom orthosis fabrication, Therapeutic exercise (33944), Therapeutic activities (20928), Manual therapy (04514), Self-skilled nursing management (56123) For further details regarding this patient refer to the Occupational Therapy electronically documented visit dated 09/15/2024. Provider Attestation I have reviewed the treatment plan for Ru Workman, [facility]# [id number] for the period of 09/15/24 -- 11/14/24, established on 09/15/2024. Signature certifies the need for therapy services. Normal [facility] CNTHERAPYon 09-15-2024 CNTHERAPY OT/PT/Speech Visit ( AKOTB) RU WORKMAN ([id number]) 1955 M Date Time Provider Department 09/15/24 9:45 AM ANDRÉS OTT Date Time Provider Department Center 09/15/2024 9:45 AM [id number], ANAS*OPHELIA [facility] Reason for Visit: OT Re-eval [892] Primary Visit Diagnosis:Rupture of extensor tendon of finger [S56.419A] Other Visit Diagnosis:Left hand pain [M79.642] Allergies As of Date: 09/15/2024 (No Known Allergies) Date Reviewed: 09/14/2024 Reviewed by: Wiliam George PA-C - Fully Assessed Prescriptions as of 09/15/2024 - warfarin (COUMADIN) 4 mg tablet TAKE 2 TABLETS BY MOUTH EVERY DAY INSTRUCTED - warfarin (COUMADIN) 2 mg tablet Take 1 tablet by mouth daily as directed. - dilTIAZem CD (CARDIZEM CD, CARTIA XT) 240 mg 24 hr capsule TAKE 1 CAPSULE BY MOUTH EVERY DAY - sildenafil (VIAGRA) 50 mg tablet Take 1 tablet by mouth once daily as needed. - VIT B COMPLEX 100 COMBO NO.2 ORAL Take by mouth. - vitamin D3-vit K1-vit MK4-MK7 50-500-1,500 mcg cap Take by mouth. Normal [facility] CNOVon 09-14-2024 CNOV Office Visit (FARHATRTSherie ) RU WORKMAN ([id number]) 1955 M Date Time Provider Department 09/14/24 8:45 AM WILIAM GEORGE During your visit today, we recorded the following information about you: Wiliam George PA-C 09/14/2024 12:46 PM Signed ORTHOPAEDIC OFFICE NOTE Patient presents with: Left Wrist - Post Op: Left wrist palmeris longus to left thumb Postop Visit: 1st POV, Post op day 12 SURGEON Pancho Pino MD PROCEDURE Transfer left palmaris longus tendon to left extensor pollicis longus tendon PROCEDURE DATE: 09/02/24 HISTORY OF PRESENT ILLNESS Ru Workman presents for post operative follow up 12 days from surgery. Patient states he is doing well today. Denies having any pain at this time. He has been wearing his custom orthosis at all times. No other complaints. Current Concerns: None Pain control: well controlled Currently taking pain medication: No Resting, icing, and elevating: Yes Fever, chills, purulent drainage, or other signs of infection: No Nausea, vomiting, SOB, chest pain, or calf pain: No PAIN EVALUATION No data found in the last 1 encounters. PHYSICAL EXAMINATION of LEFT WRIST/THUMB: Incision lines are intact, no drainage noted. Scars are maturing nicely and Sutures removed without difficulty. Patient tolerated procedure well Mild edema noted to the dorsal aspect of left thumb and wrist. No erythema, cellulitis or drainage Patient's left thumb is held in a flexed position at the MP joint level. ROM: No active extension of left thumb. Unable to hold thumb in an extended position when I passively extend his thumb up for him. Sensation:Normal sensation Brisk cap refill, +2 radial pulse palpated IMAGING No new imaging obtained at today's visit ASSESSMENT AND PLAN 1. Postoperative state - ICD9: V45.89, ICD10: Z98.890 (primary diagnosis) 2. Rupture of extensor tendon of finger - ICD9: 842.10, ICD10: S56.419A Pt education provided on postop protocol. Discussed patient's case/exam with Dr. Pino. He is in agreement with the following treatment plan. -Sutures removed in office today without difficulty. Patient tolerated this well. -Based on patient's exam findings and thumb positioning, there is concern for tendon transfer failure. We would like to give this more time. -Patient's custom orthosis needs to be adjusted. It does not hold his thumb in the appropriate hyperextended IP joint position. OT was contacted for follow-up and adjustment on this. -No use of left thumb. Patient is to keep his thumb extended at all times. -Ice and elevate as needed -NSAIDs/Tylenol as needed Follow up in 4 weeks - Patient instructed to call office with questions or concerns. This note was generated via [employer] voice dictation and may contain errors related to that system such as spelling, grammar, punctuation, gender, words, and phrases that may be inappropriate. All reasonable efforts were made to correct dictation errors, however, they still may occur given the software used. Wiliam FRANKEL PA-C [facility] Allergies As of Date: 09/14/2024 (No Known Allergies) Date Reviewed: 09/14/2024 Reviewed by: Wiliam George PA-C - Fully Assessed Reason for Visit: Post Op [174] Cmt: Left wrist palmeris longus to left thumb Primary Visit Diagnosis:Postoperative state [Z98.890] Other Visit Diagnosis:Rupture of extensor tendon of finger [S56.419A] Prescriptions as of 09/14/2024 - warfarin (COUMADIN) 4 mg tablet TAKE 2 TABLETS BY MOUTH EVERY DAY INSTRUCTED - warfarin (COUMADIN) 2 mg tablet Take 1 tablet by mouth daily as directed. - dilTIAZem CD (CARDIZEM CD, CARTIA XT) 240 mg 24 hr capsule TAKE 1 CAPSULE BY MOUTH EVERY DAY - sildenafil (VIAGRA) 50 mg tablet Take 1 tablet by mouth once daily as needed. - VIT B COMPLEX 100 COMBO NO.2 ORAL Take by mouth. - vitamin D3-vit K1-vit MK4-MK7 50-500-1,500 mcg cap Take by mouth. Problem List As Of Date 09/14/2024 Noted Resolved ENTHESOPATHY OF KNEE [726.6] 10/10/2003 PERS HX MALIG SKIN MELANOMA [Z85.820] 10/17/2003 SURGERY FOLLOW-UP [V67.0] 10/24/2003 A-fib (HCC) [I48.91] 02/26/2022 Elevated prostate specific antigen (PSA) [R97.2*06/18/2022 Preop examination [Z01.818] 04/20/2023 SHANNON (obstructive sleep apnea) [G47.33] 04/20/2023 Elevated BP without diagnosis of hypertension [*04/20/2023 Septic bursitis of elbow, left [M71.122] 04/22/2023 Cellulitis of left upper extremity [L03.114] 04/24/2023 Chest discomfort [R07.89] 04/28/2023 Localized edema [R60.0] 04/28/2023 Dyspnea on exertion [R06.09] 04/28/2023 Rupture of right Achilles tendon [S86.011A] 05/19/2023 Sepsis (HCC) [A41.9] 06/08/2023 09/18/2023 Malignant melanoma of torso excluding breast (H*09/14/2023 Hx of retinal detachment [Z86.69] 12/03/2023 Disposition: Return in about 4 weeks (around 5/ (more content not included)... Normal [facility] CNOVon 09-12-2024 CNOV Office Visit (OTOLMM ) RU WORKMAN ([id number]) 1955 M Date Time Provider Department 09/12/24 4:15 PM LYSSA COLÓN OTREKHA During your visit today, we recorded the following information about you: Lyssa Colón MD 09/12/2024 4:38 PM Signed HPI Ru William Jacinta is a 69 year old male who presents with hearing loss. Patient complains of hearing loss and was noted to have wax in both ears. ROS General Weight loss: No Fatigue: No Night sweats:No Cardiac Chest pain:No Fast heart rate:No Swelling in the feet:No Respiratory Short of breath:No Cough:No Wheezing:No Gastrointestinal Nausea:No Vomiting:No Indigestion:No Past medical history, family history, and social history reviewed. PE There were no vitals taken for this visit. General: Patient is awake, alert, NAD. Voice is normal. Skin: normal Eyes: Extraocular motion and Gaze is normal. Ears: Right external auditory canal is normal. TMJ: normal. Bilateral cerumen removed Right tympanic membranes normal. Left external auditory canal is normal. Left tympanic membrane normal. Nose: Septum is normal. Turbinates are normal. Nasopharynx:normal Oral Cavity/Oropharynx: Lips normal Dentition normal Tongue normal. Tonsils normal. Palate and uvula normal. Pharynx posterior normal Hypopharynx: Base of tongue normal Pyriform sinus normal. Larynx: Vocal cords normal. Epiglottis normal. Post cricoid normal. Salivary glands: Parotid normal. Submandibular and sublingual normal. Thyroid: normal. Lymphatic/Neck: Lymph nodes normal. Neurologic: Facial nerve normal. ASSESSMENT/PLAN: 1. Hearing loss, unspecified hearing loss type, unspecified laterality - ICD9: 389.9, ICD10: H91.90 (primary diagnosis) 2. Impacted cerumen of both ears - ICD9: 380.4, ICD10: H61.23 Follow-up as needed Lyssa Colón MD Findings will be communicated to the referring physician via mail or electronic medical record. Allergies As of Date: 09/12/2024 (No Known Allergies) Date Reviewed: 09/12/2024 Reviewed by: Judy Cornell Ma - Fully Assessed Reason for Visit: Earwax [1178] Cmt: Unable to have audio due to cerumen impaction. Primary Visit Diagnosis:Hearing loss, unspecified hearing loss type, unspecified laterality [H91.90] Other Visit Diagnosis:Impacted cerumen of both ears [H61.23] Prescriptions as of 09/12/2024 - warfarin (COUMADIN) 4 mg tablet TAKE 2 TABLETS BY MOUTH EVERY DAY INSTRUCTED - warfarin (COUMADIN) 2 mg tablet Take 1 tablet by mouth daily as directed. - dilTIAZem CD (CARDIZEM CD, CARTIA XT) 240 mg 24 hr capsule TAKE 1 CAPSULE BY MOUTH EVERY DAY - sildenafil (VIAGRA) 50 mg tablet Take 1 tablet by mouth once daily as needed. - VIT B COMPLEX 100 COMBO NO.2 ORAL Take by mouth. - vitamin D3-vit K1-vit MK4-MK7 50-500-1,500 mcg cap Take by mouth. Problem List As Of Date 09/12/2024 Noted Resolved ENTHESOPATHY OF KNEE [726.6] 10/10/2003 PERS HX MALIG SKIN MELANOMA [Z85.820] 10/17/2003 SURGERY FOLLOW-UP [V67.0] 10/24/2003 A-fib (HCC) [I48.91] 02/26/2022 Elevated prostate specific antigen (PSA) [R97.2*06/18/2022 Preop examination [Z01.818] 04/20/2023 SHANNON (obstructive sleep apnea) [G47.33] 04/20/2023 Elevated BP without diagnosis of hypertension [*04/20/2023 Septic bursitis of elbow, left [M71.122] 04/22/2023 Cellulitis of left upper extremity [L03.114] 04/24/2023 Chest discomfort [R07.89] 04/28/2023 Localized edema [R60.0] 04/28/2023 Dyspnea on exertion [R06.09] 04/28/2023 Rupture of right Achilles tendon [S86.011A] 05/19/2023 Sepsis (HCC) [A41.9] 06/08/2023 09/18/2023 Malignant melanoma of torso excluding breast (H*09/14/2023 Hx of retinal detachment [Z86.69] 12/03/2023 Encounter Status:Closed by LYSSA COLÓN on 09/12/24 [facility] CNOV Office Visit (OTAUME ) RU WORKMAN ([id number]) 1955 M Date Time Provider Department 09/12/24 1:30 PM EZIO RICHARDSON During your visit today, we recorded the following information about you: Ezio Richardson, AUD 09/19/2024 9:44 AM Signed [facility] AUDIOLOGIC EVALUATION REPORT Name: Ru Workman [facility]#: [id number] Date of Service: 09/12/2024 Date of : 1955 Age: [age] year old Referred by: No ref. provider found Referred for: Evaluation of suspected change in hearing, tinnitus, or balance. 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 Risk of Falls Documentation for over 65 years old: No history of falls reported so minimal to no risk IMPRESSIONS Testing today was deferred due to occluding cerumen in each ear. OTOSCOPY RIGHT EAR: Otoscopic inspection revealed ear canal has significant amount of cerumen which appeared to be occluding preventing visualization of the tympanic membrane. LEFT EAR: Otoscopic inspection revealed ear canal has significant amount of cerumen which appeared to be occluding preventing visualization of the tympanic membrane. RECOMMENDATIONS * Consider otologic referral to Lyssa Colón MD for an ear cleaning * Return after ear cleaning to complete audiogram Patricia Montoya, CCC-A Clinical and Senior Hearing Implant Lens Engraver copied to: No ref. provider found MONTALVO Abbrev- iation Definition Degree of hearing sensitivity dB range WNL within normal limits WNL 0 - 20 SNHL sensorineural hearing loss Mild 20-40 CHL conductive hearing loss Moderate 40-55 MHL mixed hearing loss Moderately-Severe 55-70 WRS word recognition score Severe 70-90 ME middle ear Profound 90 + TM tympanic membrane Allergies As of Date: 09/12/2024 (No Known Allergies) Date Reviewed: 09/12/2024 Reviewed by: Judy Cornell Ma - Fully Assessed Primary Visit Diagnosis:Tinnitus of both ears [H93.13] Other Visit Diagnosis:Hearing loss of both ears due to cerumen impaction [H61.23] Prescriptions as of 09/19/2024 - warfarin (COUMADIN) 4 mg tablet TAKE 2 TABLETS BY MOUTH EVERY DAY INSTRUCTED - warfarin (COUMADIN) 2 mg tablet Take 1 tablet by mouth daily as directed. - dilTIAZem CD (CARDIZEM CD, CARTIA XT) 240 mg 24 hr capsule TAKE 1 CAPSULE BY MOUTH EVERY DAY - sildenafil (VIAGRA) 50 mg tablet Take 1 tablet by mouth once daily as needed. - VIT B COMPLEX 100 COMBO NO.2 ORAL Take by mouth. - vitamin D3-vit K1-vit MK4-MK7 50-500-1,500 mcg cap Take by mouth. Problem List As Of Date 09/12/2024 Noted Resolved ENTHESOPATHY OF KNEE [726.6] 10/10/2003 PERS HX MALIG SKIN MELANOMA [Z85.820] 10/17/2003 SURGERY FOLLOW-UP [V67.0] 10/24/2003 A-fib (HCC) [I48.91] 02/26/2022 Elevated prostate specific antigen (PSA) [R97.2*06/18/2022 Preop examination [Z01.818] 04/20/2023 SHANNON (obstructive sleep apnea) [G47.33] 04/20/2023 Elevated BP without diagnosis of hypertension [*04/20/2023 Septic bursitis of elbow, left [M71.122] 04/22/2023 Cellulitis of left upper extremity [L03.114] 04/24/2023 Chest discomfort [R07.89] 04/28/2023 Localized edema [R60.0] 04/28/2023 Dyspnea on exertion [R06.09] 04/28/2023 Rupture of right Achilles tendon [S86.011A] 05/19/2023 Sepsis (HCC) [A41.9] 06/08/2023 09/18/2023 Malignant melanoma of torso excluding breast (H*09/14/2023 Hx of retinal detachment [Z86.69] 12/03/2023 Encounter Status:Closed by EZIO RICHARDSON on 09/19/24 Normal [facility] [id number] 09-06-2024 [id number] HNO ID: [id number] Author: GELY MARRERO OTR/L Service: ? Author Type: Occupational Therapist Type: [id number] Filed: 09/06/2024 09:51 Note Text: [facility] Therapy Occupational Therapy Plan of Care Certification Patient Name: uR Workman : 1955 [facility] #: [id number] Date: 09/06/2024 To: Pancho Pino MD From Therapist: PANCHO Rowe/Olga RE: Patient Certification/ Recertification Your review, approval and electronic signature are required in order to comply with Payor: [facility] MEDICARE / Plan: [employer] MEDICARE HMO / Product Type: HMO / regulations. The identified Occupational Therapy PLAN OF CARE for the patient is as follows: M79.642 Left hand pain S56.419A Rupture of extensor tendon of finger PLAN OF CARE: Assessment: Ru Workman presents with diagnosis of L hand with EPL tendon rupture s/p tendon transfer from palmaris longus that interferes with lifting, physical activities, gripping, pinching, twisting, pushing, pulling, carrying, weight bearing . The patient presents with impairments in coordination, joint mobility, overall function, range of motion, sensation, soft tissue healing, strength, tissue tenderness, and wound healing. PROMIS? (Patient-Reported Outcomes Measurement Information System) scores were reviewed and identified as a rehabilitation concern. Prognosis for therapy is Good due to: good overall health status . The patient will benefit from skilled therapy services to meet the goals established for this plan of care as noted below. Goals for Episode of Care: established 09/06/24 Patient reported outcome of physical function will increase T-score by a minimum 5 points. Patient will report a good understanding of diagnosis and OT recommendations for progression of program. Patient will increase AROM of Left hand to WFL of L thumb in order to be able to improve function for moderate to heavy functional tasks. Patient will independently demonstrate correct application of CUSTOM orthosis and verbalize understanding of proper wear/care. Patient will increase Left chair pad maker strength to Within 50% R hand, so that patient will be able to improve function for basic self-care tasks and moderate to heavy functional tasks. Patient will increase Left pinch within 50% so that patient will be able to improve function for basic self-care tasks and moderate to heavy functional tasks. Patient will report a good understanding of edema control, scar / wound management throughout therapy plan of care to promote non-adherent / non-tender soft tissue. Patient will demonstrate or report an increase in Fine Motor Coordination through testing or performance compared to initial evaluation. Patient Goals: Resume normal function of hand Planned Interventions, Frequency, and Duration: Current Frequency: 1x every other week Duration: 8 weeks Total Number of Visits Planned: 4 Planned Treatment Interventions: Custom orthosis fabrication, Therapeutic exercise (65940), Therapeutic activities (86446), Manual therapy (95404), Self-skilled nursing management (58159) PLAN FOR NEXT VISIT:cont. per protocol Patient demonstrates good understanding of plan of care and treatment. The above goals and plan of care were discussed and agreed upon by patient/family. For further details regarding this patient refer to the Occupational Therapy electronically documented visit dated 09/06/2024. Provider Attestation I have reviewed the treatment plan for Ru Workman, [facility] [id number] for the period of 09/06/24 -- 12/05/24, established on 09/06/2024. Signature certifies the need for therapy services. Normal [facility] CNTHERAPYon 09-06-2024 CNTHERAPY OT/PT/Speech Visit ( LTOT) RU WORKMAN ([id number]) 1955 M Date Time Provider Department 09/06/24 8:30 AM GELY MARRERO LTOT Date Time Provider Department Center 09/06/2024 8:30 AM [id number], KRI*LTOT [facility] Reason for Visit: OT EVAL [748] Visit Diagnoses:Left hand pain [M79.642] Rupture of extensor tendon of finger [S56.419A] Allergies As of Date: 09/06/2024 (No Known Allergies) Date Reviewed: 09/02/2024 Reviewed by: Ysabel May, IBIS - Fully Assessed Prescriptions as of 09/06/2024 - warfarin (COUMADIN) 4 mg tablet TAKE 2 TABLETS BY MOUTH EVERY DAY INSTRUCTED - warfarin (COUMADIN) 2 mg tablet Take 1 tablet by mouth daily as directed. - dilTIAZem CD (CARDIZEM CD, CARTIA XT) 240 mg 24 hr capsule TAKE 1 CAPSULE BY MOUTH EVERY DAY - sildenafil (VIAGRA) 50 mg tablet Take 1 tablet by mouth once daily as needed. - VIT B COMPLEX 100 COMBO NO.2 ORAL Take by mouth. - vitamin D3-vit K1-vit MK4-MK7 50-500-1,500 mcg cap Take by mouth. Letter Text Normal [facility] ANES POSTPROC EVALon 025 ANES POSTPROC EVAL HNO ID: [id number] Author: ANANYA COX MD Service: Anesthesiology Author Type: Physician Type: Anesthesia Postprocedure Evaluation Filed: 09/02/2024 11:47 Note Text: POST ANESTHESIA EVALUATION NOTE : 1955 Procedure Summary Date: 09/02/24 Room / Location: LD OR OR Anesthesia Start: 1016 Anesthesia Stop: Procedure: TRANSPLANT OR TRANFER TENDON FLEXOR OR EXTENSOR FOREARM AND/OR WRIST SINGLE (LEFT WRIST PALMERIS LONGUS TO LEFT THUMB EXTENSOR POLLICIS LONGUS TENDON RUPTURE) (Left: Wrist) Diagnosis: Left hand pain (Left hand pain [M79.642]) Surgeons: Pancho Pino MD Responsible Provider: Ananya Cox MD Anesthesia Type: MAC ASA Status: 3 Anesthesia Type: MAC Last Vitals Vitals Value Taken Time BP 136/76 09/02/24 1146 Temp 97.3 09/02/24 1146 Pulse 54 09/02/24 1146 Resp 17 09/02/24 1146 SpO2 94% 09/02/24 1146 Post Anesthesia Patient Status Patient Evaluation: bedside. Anticipated Disposition: phase 2 then home. Neurological Status: aware and responsive. Pulmonary Status: breathing comfortably on room air Airway Control: returned to baseline unsupported. Cardiovascular Status: stable. Pain Management: clinically adequate Postoperative Hydration: acceptable. Intraoperative Events: no significant anesthesia events Post Operative Nausea/Vomiting Status: no significant post operative nausea or vomiting Recommendation: continue current plan of care. Anesthesia Observations No Documentation SIGNATURE: Ananya Cox MD PATIENT NAME: Ru Workman DATE: September 02, 2024 TIME: 11:46 AM CSN: [id number] Normal [facility] ANES PRE-OPon 09-02-2024 ANES PRE-OP HNO ID: [id number] Author: ANANYA COX MD Service: Anesthesiology Author Type: Physician Type: Anesthesia Preprocedure Evaluation Filed: 09/02/2024 10:02 Note Text: ANESTHESIOLOGY DAY OF SURGERY NOTE : 1955 Procedure Information Date/Time: 09/02/24 1030 Procedure: TRANSPLANT OR TRANFER TENDON FLEXOR OR EXTENSOR FOREARM AND/OR WRIST SINGLE (LEFT WRIST PALMERIS LONGUS TO LEFT THUMB EXTENSOR POLLICIS LONGUS TENDON RUPTURE) (Left: Wrist) Location: LD OR OR Surgeons: Pancho Pino MD Estimated body mass index is 31.19 kg/m? as calculated from the following: Height as of this encounter: 182.9 cm (6'). Weight as of this encounter: 104.3 kg (230 lb). Most recent hematocrit and potassium results: Hematocrit 44.5 08/29/2024 Potassium 3.8 08/29/2024 Relevant Problems ANESTHESIA (+) SHANNON (obstructive sleep apnea) CARDIO (+) A-fib (HCC) (+) Dyspnea on exertion NEURO-PSYCH (+) Hx of retinal detachment (+) Personal history of malignant melanoma of skin PULMONARY (+) Dyspnea on exertion (+) SHANNON (obstructive sleep apnea) I - PHYSICAL EVALUATION AIRWAY Patient intubated: No. Tracheostomy tube not present Mallampati: III. TM distance: <3 FB. Neck ROM: full ROM without neurological symptoms. Mouth opening: adequate. Short neck: yes. Thick neck: yes Nieto present: yes Microretrognathia/Micronagt hia/Recessed Chin: No DENTAL Dental findings: teeth intact. Additional exam findings: yes. CARDIOVASCULAR Rhythm: irregular Rate: normal PULMONARY Normal pulmonary observations. II - ANESTHESIA PLAN ASA Score: 3 Anesthetic Plan: MAC The patient is not a current smoker. NPO Status: adequate Beta Bryan Monitoring Plan Monitoring plan: standard ASA. Post Procedure Analgesic Plan Postoperative analgesic plan: parenteral or oral opioids. Informed Consent Anesthetic risks, benefits, alternatives, personnel and consent discussed: yes. Patient / Responsible Green Party agrees to proceed: yes Patient / Surrogate agrees to blood products: Yes DNR status not reviewed with patient and/or family prior to surgery. Significant changes in the patient condition since the History and Physical, not otherwise documented in primary service progress note: no. Potential Anesthesia issues that may suggest increased risk of complications or contraindication to planned procedure: none. Vitals Value Taken Time BP 181/98 09/02/24 0917 Pulse 56 09/02/24 0917 Resp 15 09/02/24 0917 Temp 36.1 ?C (96.9 ?F) 09/02/24916 SpO2 97 % 09/02/24916 Facility-Administered Medications as of 09/02/2024 Medication Dose Route Frequency - lidocaine (PF) 10 mg/mL (1 %) 1-2 mg injection (XYLOCAINE) 0.1-0.2 mL INTRADERMAL PRN - lactated ringers iv infusion 5-30 mL/hr INTRAVENOUS CONTINUOUS - NaCl 0.9% iv flush bag 20 mL INTRAVENOUS PRN - ceFAZolin 2 g in D5W 100 mL (ANCEF) 2 g INTRAVENOUS Pre-Op Once Outpatient Medications as of 09/02/2024 Medication Sig - warfarin (COUMADIN) 4 mg tablet TAKE 2 TABLETS BY MOUTH EVERY DAY INSTRUCTED - warfarin (COUMADIN) 2 mg tablet Take 1 tablet by mouth daily as directed. - dilTIAZem CD (CARDIZEM CD, CARTIA XT) 240 mg 24 hr capsule TAKE 1 CAPSULE BY MOUTH EVERY DAY - sildenafil (VIAGRA) 50 mg tablet Take 1 tablet by mouth once daily as needed. - VIT B COMPLEX 100 COMBO NO.2 ORAL Take by mouth. - vitamin D3-vit K1-vit MK4-MK7 50-500-1,500 mcg cap Take by mouth. - ondansetron (ZOFRAN) 8 mg tablet Take 1 tablet by mouth every 8 hours as needed for nausea/vomiting. (Patient not taking: Reported on 10/30/2023) - omega 8-fyb-uep-fish oil (FISH OIL) 100-160-1,000 mg cap Take by mouth. (Patient not taking: Reported on 10/30/2023) I have interviewed and examined the patient. I have reviewed the medical record and/or the pre-anesthesia evaluation, pertinent labs, and test results. This contains updated information obtained within 48 hours of Surgery/Procedure. SIGNATURE: Ananya Cox MD PATIENT NAME: Ru Workman DATE: September 02, 2024 TIME: 9:48 AM CSN: [id number] Normal [facility] HISTORY PHYSICALon HISTORY PHYSICAL HNO ID: [id number] Author: PANCHO PINO MD Service: Orthopaedic Surgery Author Type: Physician Type: H&P Filed: 09/02/2024 10:06 Note Text: ORTHOPEDIC SERVICES HANDP SERVICE DATE: 09/02/2024 SERVICE TIME: 10:04 AM Subjective HISTORY OF PRESENT ILLNESS: This is a 69 year old male, who presents today with a chief complaint of left thumb extensor pollicis longus tendon rupture. PAST MEDICAL HISTORY Diagnosis Date A-fib (HCC) BPH with obstruction/lower urinary tract symptoms SHANNON (obstructive sleep apnea) Personal history of malignant melanoma of skin Rupture of right Achilles tendon Septic bursitis of elbow PAST SURGICAL HISTORY Procedure Laterality Date PAST [...] HERNIA,REDUCIBLE N/A 10/14/2022 Umbilical hernia repair TONSILLECTOMY AND ADENOIDECTOMY Tonsil/adenoidectomy VASECTOMY UNI/BI SPX W/POSTOP SEMEN EXAMS XCAPSL CTRC RMVL INSJ IO LENS PROSTH W/O ECP Bilateral Current Facility-Administered Medications Medication Dose Route Frequency lidocaine (PF) 10 mg/mL (1 %) 1-2 mg injection (XYLOCAINE) 0.1-0.2 mL INTRADERMAL PRN lactated ringers iv infusion 5-30 mL/hr INTRAVENOUS CONTINUOUS NaCl 0.9% iv flush bag 20 mL INTRAVENOUS PRN ALLERGIES No Known Allergies FAMILY HISTORY Problem Relation Age of Onset Diabetes Father Heart disease Father Accidental Mother fire Hypertension Sister No Ocular Disease Other Social History Tobacco Use Smoking status: Never Passive exposure: Never Smokeless tobacco: Never Vaping Use Vaping status: Never Used Substance Use Topics Alcohol use: Yes Comment: couple times a week Drug use: Never Hand Dominance: right handed Occupation: retired Ambulatory Status: community ambulator without assistance REVIEW OF SYSTEMS: GENERAL: Negative for malaise, significant weight loss, night sweats and fever HEENT: No changes in hearing or vision. No sinus pain or pressure, No trouble swallowing RESPIRATORY: Negative for cough, wheezing and shortness of breath CARDIOVASCULAR: Negative for chest pain, leg swelling, palpitations, orthopnea GI:Negative for abdominal discomfort, hematochezia, melena, hematemesis, change in bowel habits, diarrhea, constipation, nausea or vomiting. MUSCULOSKELETAL: See HPI PSYCH: Negative for sleep disturbance, mood disorder and recent psychosocial stressors. HEMATOLOGY Negative for prolonged bleeding, bruising easily, and swollen nodes. ENDOCRINE: Negative for cold or heat intolerance, polyuria, polydipsia and goiter. NEURO: Negative for lightheadedness, dizziness, tremor, gait imbalance, syncope and seizures. Objective PHYSICAL EXAM: Pleasant, comfortable, not in acute distress. Awake, alert, oriented times 4. SKIN: No evidence of erythema, warmth, bruising, abrasions, scars, deformity, or lacerations. NECK: Supple, no JVD, no carotid bruit, no thyromegaly. LUNGS: Clear to auscultation bilaterally. CARDIAC: RRR, S1 and S2, no S3 or S4, no additional heart sounds or murmurs. ABDOMEN: Soft, nontender, bowel sounds present. EXTREMITIES: No edema. PULSES: Peripheral pulses present. The remainder of the physical exam is noncontributory. BP 181/98 Pulse (!) 56 Temp 36.1 ?C (96.9 ?F) (Tympanic) Resp 15 Ht 182.9 cm (6') Wt 104.3 kg (230 lb) SpO2 97% BMI 31.19 kg/m? PROCEDURE: Not applicable RADIOGRAPHS: Xrays 08/26/2024 three views left wrist: Tommy screw at the medial aspect of the proximal carpal row. Scattered degenerative arthritic changes which are greatest at the radiocarpal joint. No fracture or dislocation. Soft tissues are within normal limits. OTHER STUDIES: Not applicable. DATA: Diagnostic tests reviewed for today's visit: Most recent labs Assessment/Plan Left thumb extensor pollicis longus tendon rupture Transfer left wrist palmaris longus to left thumb extensor pollicis longus tendon Medication and Non-Pharmacologic VTE Prophylaxis/Anticoagulants VTE Prophylaxis: VTE prophylaxis appropriate SIGNATURE: Pancho Pino MD PATIENT NAME: Ru Workman DATE: September 02, 2024 TIME: 10:04 AM Normal [facility] NURSING PROGon 09-02-2024 NURSING PROG HNO ID: [id number] Author: YSABEL MAY RN Service: ? Author Type: Registered Nurse Type: Nursing Progress Note Filed: 09/02/2024 12:05 Note Text: Patient's left wrist dressing dry, intact, and clean. Patient denies pain. Left fingers warm, dry, not swollen, and <3 second capillary refill. Left arm elevated and ice applied. Normal [facility] OPERATIVE NOon 09-02-2024 OPERATIVE NO HNO ID: [id number] Author: PANCHO PINO MD Service: Orthopaedic Surgery Author Type: Physician Type: Operative Report Filed: 09/02/2024 11:42 Note Text: OPERATIVE/PROCEDURE REPORT LOG ID: [id number] SURGERY/PROCEDURE DATE: 09/02/2024 INCISION/PROCEDURE START TIME: 10:37 AM INCISION CLOSE/PROCEDURE END TIME: 11:33 AM SURGEON(S)/PROCEDURALIST(S) AND GREEN BUILDING MATERIALS DESIGNER(S): Surgeons and Role: * Pancho Pino MD - Primary No Additional Staff SURGERY/PROCEDURE(S): Transfer left palmaris longus tendon to left extensor pollicis longus tendon ANESTHESIA: Monitored Anesthesia Care plus local SURGERY/PROCEDURE DETAILS: The patient is a 69-year-old male with a history of left wrist arthritis. Over 8 years ago he had experienced an attritional rupture of his left EPL and this underwent an EIP to EPL transfer in [place]. Per his report this had functioned well until within the last few months he experienced an inability to extend the thumb. Exam was consistent with rupture of this transfer. We reviewed treatment options for this and he elected to proceed with an alternative transfer bypassing the area of the wrist. Risks, benefits, alternatives and limitations were reviewed. He consider these carefully and elected to proceed. No guarantees were stated nor implied. The patient was identified in the preoperative holding area with a valid and signed consent sheet. Final questions were answered to his satisfaction, and I personally marked the operative site at the left wrist in indelible ink. After preoperative huddle, he was taken back the operating room transferred operative table. A bony prominences were well-padded. Hand table was brought in the left, and a well-padded left upper extremity tourniquet was placed. A timeout was performed and all aspects of the surgical safety checklist were reviewed and agreed upon by all members of the surgical team. I began first with a preliminary cleanse with isopropyl alcohol this was then followed by a thorough local anesthetic infiltration about the dorsum of the hand and wrist and this set up nicely and provided dense analgesia through the remainder of the procedure. A formal Hibiclens presurgical preparation was then completed, and the extremity was then draped out in usual sterile fashion. Esmarch bandage was utilized to exsanguinate, and the tourniquet was insufflated at 250 mmHg. I used the patient's prior incision along the thumb carpometacarpal joint and this area was incised. Careful dissection was carried through subcutaneous tissues, and the prior transfer site was identified. This indeed was ruptured. The stump of the extensor pollicis longus was identified, and this was trimmed back to healthy tendon. I then made a 1 cm incision at the distal wrist crease and isolated palmaris longus. A counterincision was then made midway in the forearm along the palmaris longus. The palmaris longus was then transected distally, and then delivered through the proximal wound. I then bluntly created a tunnel within the subcutaneous tissues and used a tendon passer to then retrieved the palmaris longus through the second incision. A stay stitch was then placed at the EPL and a tendon passer was then utilized to bring the palmaris longus through the EPL and secured this with a fpnany-mb-urxyf suture of 3-0 Ethibond. I was pleased with the tension achieved. The tendon passer was then utilized to create a Pulvertaft weave. The tendon was secured with a multitude of 3-0 Ethibond owwyev-co-qezkn sutures. The patient demonstrated uninhibited wrist flexion and extension. At this point the tourniquet was let down. The wounds were thoroughly irrigated with normal saline. The skin incisions were closed with simple and mattress sutures of 4-0 nylon, and each of the 3 incision sites was then dressed with Xeroform gauze. A well-padded thumb spica splint was then applied keeping the IP joint protected in hyperextension. The patient is then awakened from sedation by difficulty, transferred the recovery bed, and taken to the PACU in stable condition having tolerated the procedure well. No PRE-OP/PRE-PROCEDURE DIAGNOSIS: Extensor pollicis longus tendon rupture POST-OP/POST-PROCEDURE DIAGNOSIS: Same as Preop ESTIMATED BLOOD LOSS: 0 ml SPECIMENS: None IMPLANTABLE DEVICES: NONE DRAINS: None COMPLICATIONS: None CLOSURE TECHNIQUE: Primary PARTICIPATION IN SURGERY/PROCEDURE: I/primary surgeon/proceduralist performed the entire procedure. SIGNATURE: Pancho Pino MD PATIENT NAME: Ru Workman DATE: September 02, 2024 TIME: 11:37 AM Normal [facility] MARA BY IFA WITH REFLEXon Nuclear Ab Ql (S) Negative Normal Negative [facility] Comment on above: Order Comment: Jackelyn zaldivar Type: BLOOD SPECIMEN Ordering Facility: [facility] Address: [address] [place] [address] Result Comment: Anti -nuclear antibody test is used as an aid in diagnosis of systemic autoimmune diseases. Where positive and clinically warranted, follow-up using disease-specific testing is recommended. Low positive titers are not uncommon with advanced age, certain chronic infections, and malignancies among others. Test methodology: Indirect fluorescence immunoassay (IFA) using HEp-2 cells. Performed By: #### 3 3935-8 #### [facility] CLIA [id number] [address] [place] [address] [place] CBC panel Auto (Bld)on 08-29 Erythrocyte distribution width (RBC) [Ratio] 14.4 % Normal 11.5-15.0 [facility] Comment on above: Order Comment: Jackelyn zaldivar Type: BLOOD SPECIMEN Ordering Facility: [facility] Address: [address] [place] [address] Performed By: #### 5 8410-2 #### [facility] CLIA [id number] [address] [place] [address] [place] Hematocrit (Bld) [Volume fraction] 44.5 % Normal 39.0-51.0 [facility] Comment on above: Order Comment: Jackelyn zaldivar Type: BLOOD SPECIMEN Ordering Facility: [facility] Address: [address] [place] [address] Performed By: #### 5 8410-2 #### [facility] CLIA [id number] [address] [place], [place] [id number] [place] Hemoglobin (Bld) [Mass/Vol] 14.9 g/dL Normal 13.0-17.0 [facility] Comment on above: Order Comment: Jackelyn zaldivar Type: BLOOD SPECIMEN Ordering Facility: [facility] Address: [address] [place] [address] Performed By: #### 5 8410-2 #### [facility] CLIA [id number] [address] [place] [address] [facility] MCH (RBC) [Entitic mass] 31.2 pg Normal 26.0-34.0 [facility] Comment on above: Order Comment: Speci men Type: BLOOD SPECIMEN Ordering Facility: [facility] Address: [address] [place] [address] Performed By: #### 5 8410-2 #### [facility] CLIA [id number] [address] [place], [place] [id number] [place] [address] [place] MCHC (RBC) [Mass/Vol] 33.5 g/dL Normal 30.5-36.0 [facility] Comment on above: Order Comment: Speci men Type: BLOOD SPECIMEN Ordering Facility: [facility] Address: [address] [place] [address] Performed By: #### 5 8410-2 #### [facility] CLIA [id number] [address] [place], [place] [id number] [place] [address] [place] MCV (RBC) [Entitic vol] 93.3 fL Normal 80.0-100.0 [facility] Comment on above: Order Comment: Speci men Type: BLOOD SPECIMEN Ordering Facility: [facility] Address: [address] [place] [address] Performed By: #### 5 8410-2 #### [facility] CLIA [id number] [address] [place] [address] [place] Platelet mean volume (Bld) [Entitic vol] 10.8 fL Normal 9.0-12.7 [facility] Comment on above: Order Comment: Speci men Type: BLOOD SPECIMEN Ordering Facility: [facility] Address: [address] [place] [address] Performed By: #### 5 8410-2 #### [facility] CLIA [id number] [address] [place] [address] [place] Platelets (Bld) [#/Vol] 205 10*3/uL Normal 150-400 [facility] Comment on above: Order Comment: Jackelyn zaldivar Type: BLOOD SPECIMEN Ordering Facility: [facility] Address: [address] [place] [address] Performed By: #### 5 8410-2 #### [facility] CLIA [id number] [address] [place] [address] [facility] [place] RBC (Bld) [#/Vol] 4.77 10*6/uL Normal 4.20-6.00 [facility] Comment on above: Order Comment: Jackelyn zaldivar Type: BLOOD SPECIMEN Ordering Facility: [facility] Address: [address] [place] [address] Performed By: #### 5 8410-2 #### [facility] CLIA [id number] [address] [place] [id number] [facility] WBC (Bld) [#/Vol] 8.24 10*3/uL Normal 3.70-11.00 [facility] Comment on above: Order Comment: Jackelyn zaldivar Type: BLOOD SPECIMEN Ordering Facility: [facility] Address: [address] [place] [address] Performed By: #### 5 8410-2 #### [facility] CLIA [id number] [address] [place], [place] [id number] [facility] CNNURSEon 08-29-2024 CNNURSE Nurse Visit (AGINTML W) RU WORKMAN ([id number]) 1955 M Date Time Provider Department 08/29/24 8:40 AM NURSE TARAS DUQUE During your visit today, we recorded the following information about you: Blood pressure 128/72 Dana Davis MA 08/29/2024 8:39 AM Signed Patient here for INR check. Last INR was 1.8 on 08/15/24. Patient is currently taking coumadin 6 mg and 8 mg all other days. Denies missing any doses. Patient's INR today was 2.2. Per conversation with Ryan Edwards CNP patient informed ot continue current dose and recheck in 1 month. Dana Davis MA Referring Provider: RYAN EDWARDS [[id number]] Allergies As of Date: 08/29/2024 (No Known Allergies) Date Reviewed: 08/26/2024 Reviewed by: Cristine Boykin LPN - Fully Assessed Reason for Visit: Coumadin/INR [1207] Primary Visit Diagnosis:Atrial fibrillation, unspecified type (HCC) [I48.91] Order(s):INR (POC) [8999528] Order #: [id number] INR (POC) [8261679] Order #: [id number]. #:[id number] -[id number] Prescriptions as of 08/29/2024 - warfarin (COUMADIN) 4 mg tablet TAKE 2 TABLETS BY MOUTH EVERY DAY INSTRUCTED - warfarin (COUMADIN) 2 mg tablet Take 1 tablet by mouth daily as directed. - dilTIAZem CD (CARDIZEM CD, CARTIA XT) 240 mg 24 hr capsule TAKE 1 CAPSULE BY MOUTH EVERY DAY - sildenafil (VIAGRA) 50 mg tablet Take 1 tablet by mouth once daily as needed. - ondansetron (ZOFRAN) 8 mg tablet Take 1 tablet by mouth every 8 hours as needed for nausea/vomiting. - lactobacillus rhamnosus (CULTURELLE) 10 billion cell capsule Take 2 capsules by mouth two times a day for 14 days. - loperamide (IMODIUM) 2 mg cap(s) Take 1 capsule by mouth three times a day as needed for diarrhea for up to 7 days. - metoprolol succinate ER (TOPROL XL) 50 mg 24 hr tablet Take 1 tablet by mouth two times a day. - omega 0-oza-rxc-fish oil (FISH OIL) 100-160-1,000 mg cap Take by mouth. - VIT B COMPLEX 100 COMBO NO.2 ORAL Take by mouth. - vitamin D3-vit K1-vit MK4-MK7 50-500-1,500 mcg cap Take by mouth. Problem List As Of Date 08/29/2024 Noted Resolved ENTHESOPATHY OF KNEE [726.6] 10/10/2003 PERS HX MALIG SKIN MELANOMA [Z85.820] 10/17/2003 SURGERY FOLLOW-UP [V67.0] 10/24/2003 A-fib (HCC) [I48.91] 02/26/2022 Elevated prostate specific antigen (PSA) [R97.2*06/18/2022 Preop examination [Z01.818] 04/20/2023 SHANNON (obstructive sleep apnea) [G47.33] 04/20/2023 Elevated BP without diagnosis of hypertension [*04/20/2023 Septic bursitis of elbow, left [M71.122] 04/22/2023 Cellulitis of left upper extremity [L03.114] 04/24/2023 Chest discomfort [R07.89] 04/28/2023 Localized edema [R60.0] 04/28/2023 Dyspnea on exertion [R06.09] 04/28/2023 Rupture of right Achilles tendon [S86.011A] 05/19/2023 Sepsis (HCC) [A41.9] 06/08/2023 09/18/2023 Malignant melanoma of torso excluding breast (H*09/14/2023 Hx of retinal detachment [Z86.69] 12/03/2023 Encounter Status:Closed by DANA DAVIS on 08/29/24 Normal [facility] CRP SerPl-mCncon 08-29-2024 CRP [Mass/Vol] mg/L Normal <0.9 [facility] Comment on above: Order Comment: Speci men Type: BLOOD SPECIMEN Ordering Facility: [facility] Address: [address] [place] [address] Performed By: #### 4 537-7 #### [facility] CLIA [id number] [address] [place] [address] [place] Comprehensive metabolic 2000 panelon 08-29-2024 Albumin [Mass/Vol] 4.1 g/dL Normal 3.9-4.9 [facility] Comment on above: Order Comment: Speci men Type: BLOOD SPECIMEN Ordering Facility: [facility] Address: [address] [id number] Performed By: #### 4 537-7 #### [facility] CLIA [id number] [address] [place] [address] [place] ALP [Catalytic activity/Vol] 70 U/L Normal 38-113 [facility] Comment on above: Order Comment: Speci men Type: BLOOD SPECIMEN Ordering Facility: [facility] Address: [address] [place] [address] Performed By: #### 4 537-7 #### [facility] CLIA [id number] [address] [place] [address] [place] ALT With P-5'-P [Catalytic activity/Vol] 37 U/L Normal 10-54 [facility] Comment on above: Order Comment: Speci men Type: BLOOD SPECIMEN Ordering Facility: [facility] Address: [address] [place] [address] Performed By: #### 4 537-7 #### [facility] CLIA [id number] [address] [place], [place] [id number] [place] Anion gap [Moles/Vol] 12 mmol/L Normal 8-15 [facility] Comment on above: Order Comment: Speci men Type: BLOOD SPECIMEN Ordering Facility: [facility] Address: [address] [place] [address] Performed By: #### 4 537-7 #### [facility] CLIA [id number] [address] [place], [place] [address] [place] AST With P-5'-P [Catalytic activity/Vol] 23 U/L Normal 14-40 [facility] Comment on above: Order Comment: Speci men Type: BLOOD SPECIMEN Ordering Facility: [facility] Address: [address] [place], [place] [address] Performed By: #### 4 537-7 #### [facility] CLIA [id number] [address] [place], [place] [address] [place] Bilirubin [Mass/Vol] 0.8 mg/dL Normal 0.2-1.3 [facility] Comment on above: Order Comment: Speci men Type: BLOOD SPECIMEN Ordering Facility: [facility] Address: [address] [place] [address] Performed By: #### 4 537-7 #### [facility] CLIA [id number] [address] [place] [address] [place] Calcium [Mass/Vol] 9.9 mg/dL Normal 8.5-10.2 [facility] Comment on above: Order Comment: Speci men Type: BLOOD SPECIMEN Ordering Facility: [facility] Address: [address] [place] [address] Performed By: #### 4 537-7 #### [facility] CLIA [id number] [address] [place] [address] [place] Chloride [Moles/Vol] 106 mmol/L Normal 98-107 [facility] Comment on above: Order Comment: Speci men Type: BLOOD SPECIMEN Ordering Facility: [facility] Address: [address] [place] [address] Performed By: #### 4 537-7 #### [facility] CLIA [id number] [address] [place] [address] [place] CO2 [Moles/Vol] 25 mmol/L Normal 22-30 [facility] Comment on above: Order Comment: Speci men Type: BLOOD SPECIMEN Ordering Facility: [facility] Address: [address] [place] [address] Performed By: #### 4 537-7 #### [facility] CLIA [id number] [address] [place] [address] [place] Creatinine [Mass/Vol] 1.17 mg/dL Normal 0.73-1.22 [facility] Comment on above: Order Comment: Speci men Type: BLOOD SPECIMEN Ordering Facility: [facility] Address: [address] [place] [address] Performed By: #### 4 537-7 #### [facility] CLIA [id number] [address] [place] [address] [place] Creatinine and Glomerular filtration rate.predicted panel (S/P/Bld) 67 mL/min/1.73m??? Normal >=60 [facility] Comment on above: Order Comment: Jackelyn zaldivar Type: BLOOD SPECIMEN Ordering Facility: [facility] Address: [address] [place] [address] Result Comment: Nellie mated Glomerular Filtration Rate (eGFR) is calculated using the 2020 CKD-EPI creatinine equation. This equation utilizes serum creatinine, sex, and age as parameters. The creatinine assay has traceable calibration to isotope dilution-mass spectrometry. Refer to KDIGO guidelines for clinical interpretation. In patients with unstable renal function, e.g. those with acute kidney injury, the eGFR may not accurately reflect actual GFR. Performed By: #### 4 537-7 #### [facility] CLIA [id number] [address] [place] [address] [place] Glucose [Mass/Vol] 100 mg/dL High 74-99 [facility] Comment on above: Order Comment: Jackelyn zaldivar Type: BLOOD SPECIMEN Ordering Facility: [facility] Address: [address] [place] [address] Result Comment: The [place] [employer] (ADA) provides guidance for cutoff values for fasting glucose and random glucose. The ADA defines fasting as no caloric intake for at least 8 hours. Fasting plasma glucose results between 100 to 125 mg/dL indicate increased risk for diabetes (prediabetes). Fasting plasma glucose results greater than or equal to 126 mg/dL meet the criteria for diagnosis of diabetes. In the absence of unequivocal hyperglycemia, results should be confirmed by repeat testing. In a patient with classic symptoms of hyperglycemia or hyperglycemic crisis, random plasma glucose results greater than or equal to 200 mg/dL meet the criteria for diagnosis of diabetes. Reference: Standards of Medical Care in Diabetes 2016, [place] [employer]. Diabetes Care. 2016.39(Suppl 1). Performed By: #### 4 537-7 #### [facility] CLIA [id number] [address] [place] [address] [place] Potassium [Moles/Vol] 3.8 mmol/L Normal 3.7-5.1 [facility] Comment on above: Order Comment: Speci men Type: BLOOD SPECIMEN Ordering Facility: [facility] Address: [address] [place] [address] Performed By: #### 4 537-7 #### [facility] CLIA [id number] [address] [place] [address] [place] Protein [Mass/Vol] 6.9 g/dL Normal 6.3-8.0 [facility] Comment on above: Order Comment: Speci men Type: BLOOD SPECIMEN Ordering Facility: [facility] Address: [address] [place] [address] Performed By: #### 4 537-7 #### [facility] CLIA [id number] [address] [place] [address] [place] Sodium [Moles/Vol] 143 mmol/L Normal 136-144 [facility] Comment on above: Order Comment: Speci men Type: BLOOD SPECIMEN Ordering Facility: [facility] Address: [address] [place] [address] Performed By: #### 4 537-7 #### [facility] CLIA [id number] [address] [place] [address] [place] Urea nitrogen [Mass/Vol] 15 mg/dL Normal 9-24 [facility] Comment on above: Order Comment: Speci men Type: BLOOD SPECIMEN Ordering Facility: [facility] Address: [address] [place] [address] Performed By: #### 4 537-7 #### [facility] CLIA [id number] [address] [place] [address] [place] Cyclic citrullinated peptide IgG Qnon 08-29-2024 CCP ANTIBODY IGG QUALITATIVE Negative Normal Negative [facility] Comment on above: Order Comment: Speci men Type: BLOOD SPECIMEN Ordering Facility: [facility] Address: [address] [place] [address] Performed By: #### 3 3935-8 #### [facility] CLIA [id number] [address] [place] [address] [place] ESR Westergren method (Bld) [Velocity]on 08-29-2024 ESR (Bld) [Velocity] 8 mm/h Normal 0-15 [facility] Comment on above: Order Comment: Speci men Type: BLOOD SPECIMEN Ordering Facility: [facility] Address: [address] [place] [address] Performed By: #### 4 537-7 #### [facility] CLIA [id number] [address] [place] [address] [place] INR (POC)on 08-29-2024 INR Coag (PPP) [Relative time] 2.2 {INR} High 0.8 - 1.2 [facility] Internal Quality Check Acceptable [facility] Interpretation and review of laboratory results Abnormal [facility] Location:[facility], [address] [place] [address], [address] [place] [address] POINT OF CARE [facility] Lipid 1996 panelon Cholesterol [Mass/Vol] 204 mg/dL High <200 [facility] Comment on above: Order Comment: Speci men Type: BLOOD SPECIMEN Ordering Facility: [facility] Address: [address] [place] [address] Result Comment: <200 mg/dL, Desirable 200-239 mg/dL, Borderline high >239 mg/dL, High Performed By: #### 4 537-7 #### [facility] CLIA [id number] [address] [place] [address] [place] Cholesterol in HDL [Mass/Vol] 64 mg/dL Normal >39 [facility] Comment on above: Order Comment: Speci men Type: BLOOD SPECIMEN Ordering Facility: [facility] Address: [address] [place] [address] Result Comment: 40-5 9 mg/dL, Acceptable >59 mg/dL, High: Negative risk factor for coronary heart disease <40 mg/dL, Low: Positive risk factor for coronary heart disease Performed By: #### 4 537-7 #### [facility] CLIA [id number] [address] [place] [address] OF [facility] Cholesterol in LDL [Mass/Vol] 117 mg/dL High <100 [facility] Comment on above: Order Comment: Jackelyn zaldivar Type: BLOOD SPECIMEN Ordering Facility: [facility] Address: [address] [place] [address] Result Comment: <100 mg/dL, Optimal 100-129 mg/dL, Near optimal/above optimal 130-159 mg/dL, Borderline high 160-189 mg/dL, High >189 mg/dL, Very high Secondary prevention optimal LDL Cholesterol levels are recommended to be < 70 mg/dL Performed By: #### 4 537-7 #### [facility] CLIA [id number] [address] [place] [address] Cholesterol in LDL/Cholesterol in HDL [Mass ratio] 1.83 {ratio} Normal <2.54 [facility] Comment on above: Order Comment: Jackelyn zaldivar Type: BLOOD SPECIMEN Ordering Facility: [facility] Address: [address] [place] [address] Result Comment: Refe rence: 1. National Cholesterol Education Program ATP III Guideline At-A-Glance Quick Desk Reference: National Heart, Lung, and Blood [place]. National Institutes of Health. 2001: NIH Publication No. 01-3305. 2. An International Atherosclerosis Society position paper: global recommendations for the management of dyslipidemia: executive summary, Atherosclerosis. 2014: 232(2):410-413. Performed By: #### 4 537-7 #### [facility] CLIA [id number] [address] [place] [address] [place] Cholesterol in VLDL [Mass/Vol] 23 mg/dL Normal <30 [facility] Comment on above: Order Comment: Jackelyn zaldivar Type: BLOOD SPECIMEN Ordering Facility: [facility] Address: [address] [place] [address] Performed By: #### 4 537-7 #### [facility] CLIA [id number] [address] [place] [address] [place] Cholesterol non HDL [Mass/Vol] 140 mg/dL High <130 [facility] Comment on above: Order Comment: Speci men Type: BLOOD SPECIMEN Ordering Facility: [facility] Address: [address] [place] [address] Result Comment: <130 mg/dL, Optimal 130-159 mg/dL, Near optimal/above optimal 160-189 mg/dL, Borderline high 190-219 mg/dL, High >219 mg/dL, Very high Secondary prevention optimal non HDL Cholesterol levels are recommended to be <100 mg/dL Performed By: #### 4 537-7 #### [facility] CLIA [id number] [address] [place] [address] [place] Cholesterol.total/Cho lesterol in HDL [Mass ratio] 3.19 {ratio} Normal <5.10 [facility] Comment on above: Order Comment: Speci men Type: BLOOD SPECIMEN Ordering Facility: [facility] Address: [address] [place] [address] Performed By: #### 4 537-7 #### [facility] CLIA [id number] [address] [place] [address] [place] FASTING TIME 12 hrs Normal [facility] Comment on above: Order Comment: Speci men Type: BLOOD SPECIMEN Ordering Facility: [facility] Address: [address] [place] [address] Performed By: #### 4 537-7 #### [facility] CLIA [id number] [address] [place] [address] [place] Triglyceride [Mass/Vol] 117 mg/dL Normal <150 [facility] Comment on above: Order Comment: Speci men Type: BLOOD SPECIMEN Ordering Facility: [facility] Address: [address] [place] [address] Result Comment: <150 mg/dL, Normal 150-199 mg/dL, Borderline high 200-499 mg/dL, High >499 mg/dL, Very high Performed By: #### 4 537-7 #### [facility] CLIA [id number] [address] [place] [address] [place] PSA/PROSTATE SPECIFIC ANTIGE N SCREENINGon 08-29-2024 Prostate specific Ag [Mass/Vol] 10.90 ng/mL High <2.60 [facility] Comment on above: Order Comment: Speci men Type: BLOOD SPECIMEN Ordering Facility: [facility] Address: [address] [place] [address] Result Comment: Tota olga PSA test methodology used is the Electrochemiluminescence Immunoassay by [employer]. Total PSA values by differing methodologies cannot be interchanged. For an individual patient, the significance of a PSA level should be interpreted in a broad clinical context, including age, race, family history, digital rectal exam, prostate size, results of prior testing (prostate biopsy, free PSA, PCA3), and use of 5-alpha reductase inhibitors. Considering the high incidence of asymptomatic cancer in the general population that may not pose an ultimate risk to a patient, the decision to recommend urological evaluation or prostate biopsy should be individualized after consideration of all these factors. REFERENCE: Cody Sol M.D., M.P.H., Demarcus Adam M.D., Ph.D., Shan Rice M.D., Thu Rodriguez, M.P.H., Bushra Wild, Roxanna. Effect of Verification Bias on Screening for Prostate Cancer by Measurement of Prostatic Specific Antigen. N Engl J Med 2003,349:335-42. Performed By: #### 4 537-7 #### [facility] CLIA [id number] [address] [place] [address] [place] Rheumatoid fact SerPl-aCncon 08-29-2024 Rheumatoid factor Qn 13 [IU]/mL Normal <16 [facility] Comment on above: Order Comment: Speci men Type: BLOOD SPECIMEN Ordering Facility: [facility] Address: [address] [place] [address] Performed By: #### 4 537-7 #### [facility] CLIA [id number] [address] [place] [address] [place] TSH SerPl-aCncon 08-29-2024 TSH Qn 2.970 m[IU]/L Normal 0.270-4.200 [facility] Comment on above: Order Comment: Speci men Type: BLOOD SPECIMEN Ordering Facility: [facility] Address: [address] [place] [address] Performed By: #### 4 537-7 #### [facility] CLIA [id number] [address] [place] [address] [place] cCP IgG SerPl-aCncon 025 Cyclic citrullinated peptide IgG Qn <15 Normal <20 [facility] Comment on above: Order Comment: Speci men Type: BLOOD SPECIMEN Ordering Facility: [facility] Address: [address] [place] [address] Performed By: #### 3 3935-8 #### [facility] CLIA [id number] [address] [place] [address] [place] CNOVon 08-26-2024 CNOV Office Visit (FARHATRTSherie ) RU WORKMAN ([id number]) 1955 M Date Time Provider Department 08/26/24 8:30 AM PANCHO PINO During your visit today, we recorded the following information about you: Pancho Pino MD 08/26/2024 9:29 AM Signed Patient presents with: Left Thumb - Established Patient, Pain HISTORY OF PRESENT ILLNESS Ru Workman presents to the office for new issue: left thumb pain. Consultation requested by Ryan Edwards APRN.CNP for an opinion regarding left thumb pain. 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 He underwent an EIP to EPL transfer in [place] which was successful.. He now notices that he Is unable to extend his thumb over the last week. He believes that one of his tendons ruptured. The patient has been taking some herbal medications which he feels has been beneficial for his pain. Denies any pain at this time. Location: Left thumb Duration of symptoms: 1 week Treatments tried include See above Symptoms have Worsened REVIEW OF SYSTEMS Cardiovascular ROS:No history of chest pain, palpitation, orthopnea, cyanosis, pedal edema Neurologic ROS: Numbness and Tingling: No PAST MEDICAL HISTORY Past medical, surgical, family, and social histories have been reviewed and updated with the patient today and are located elsewhere in the medical record. Diabetes:No ALLERGIES ALLERGIES No Known Allergies PHYSICAL EXAMINATION There were no vitals taken for this visit. There is no height or weight on file to calculate BMI. General Appearance Well appearing, alert, in no acute distress, well-hydrated, well nourished. Alert and oriented times: 3 Normal affect times: 3 Appears stated age and well nourished Gait and station:normal Left Upper Extremity Exam: Inspection demonstrates a droop posture at the left thumb Well-healed surgical incisions consistent with prior tendon transfer There is some nonspecific synovitis noted along the dorsal extensors Tenderness to palpation: Nontender about the wrist ROM: No active thumb IP extension Full composite fist, all digits tip to palm Palmaris longus tendon is present Sensation intact median, radial, ulnar nerve distribution 2+ radial pulse REVIEW OF STUDIES X-rays 08/26/24 3 views of the left hand demonstrate degenerative arthritis throughout the radiocarpal, intercarpal articulations. A headless screw is present in the interval between the lunate and triquetrum. A small dorsal osteophyte is noted at the midcarpal joint. ASSESSMENT/PLAN: 1. Left hand pain - ICD9: 729.5, ICD10: M79.642 (primary diagnosis) - XR HAND GENERAL 3V PA/LAT/OBL LEFT - CONSULT TO BOAT DESIGNER 2. Pain of left thumb - ICD9: 729.5, ICD10: M79.645 3. Rupture of extensor tendon of finger - ICD9: 842.10, ICD10: S56.419A - CONSULT TO BOAT DESIGNER 4. Crepitant synovitis of wrist, left - ICD9: 727.00, ICD10: M70.032 - C-REACTIVE PROTEIN - RHEUMATOID FACTOR - SEDIMENTATION RATE, WESTERGREN - CCP ANTIBODY IGG - MARA BY IFA WITH REFLEX This is a complicated issue. The patient has experienced a very delayed rupture of his tendon transfer. He does have some synovitis on exam although he is not painful. 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 He has upcoming yearly lab work and I recommended that we add in some inflammatory markers. In regard to the thumb extensor tendon which is highly debilitating to him, I reviewed an alternative transfer of the palmaris longus to the extensor pollicis longus which can be done outpatient and reviewed the risks, benefits, alternatives and limitations of this procedure. He consider these carefully and elects to proceed. I personally obtained consent. Postoperative Occupational Therapy referral was placed. We will plan on outpatient surgery under sedation and local anesthesia at his convenience. He may remain on his anticoagulation. All of his questions were answered to his satisfaction. We have made the decision to move forward with a major orthopaedic surgery today, and this represents the highest form of medical decision-making complexity. The patient's diagnosis of Left hand pain (primary encounter diagnosis) Pain of left thumb Rupture of extensor tendon of finger Crepitant synovitis of wrist, left represents an acute pathology/diagnosis/injury that represents a current or possible direct threat to bodily function. Pancho Pino MD Patient educated on expected postoperative course and recovery. Patient instructed to call the office with questions or concerns. Referring Provider: RYAN EDWARDS (more content not included)... Normal [facility] XR HAND 3V PA/LAT/OBL LTon 0 08-26-2024 XR HAND 3V PA/LAT/OBL LT * * *Final Report* * * DATE OF EXAM: Aug 26 2024 8:28AM LDX 5345 - XR HAND 3V PA/LAT/OBL LT / PROCEDURE REASON: Left hand pain * * * * Physician Interpretation * * * * EXAM TITLE: XR HAND 3V PA/LAT/OBL LT DATE: 08/30/2024 8:33 AM INDICATION: Left hand pain secondary to injury COMPARISON: None. FINDINGS: Tommy screw at the medial aspect of the proximal carpal row. Scattered degenerative arthritic changes which are greatest at the radiocarpal joint. No fracture or dislocation. Soft tissues are within normal limits. IMPRESSION: Chronic findings without evidence for fracture. Train Announcer: PSCB Transcribe Date/Time: Aug 30 2024 8:33A Dictated by : JENNY SHEA MD This examination was interpreted and the report reviewed and electronically signed by: JENNY SHEA MD on Aug 30 2024 8:34AM EST [id number] [facility] RU WORKMAN ([id number]) 1955 Date Time Provider Department 08/23/24 RYAN EDWARDS AGINTMLSusy During your visit today, we recorded the following information about you: Cristine Boykin LPN 08/23/2024 3:16 PM Signed Pt left message that he would like to schedule appointment for wellness appointment. [facility] 08/23/2024 3:23 PM Signed Patient is scheduled for October 04, 2024 for Medicare Wellness. Patient would like his labwork placed before that appointment so he can have it done and be able to discuss it with Ryan at that appointment. Ryan Marinelli APRN.CNP 08/23/2024 4:10 PM Signed Orders placed Ryan Edwards APRN.CNP 08/23/2024 4:10 PM Signed Addended by: RYAN EDWARDS on: 08/23/2024 04:10 PM Modules accepted: Orders Cristine Boykin LPN 08/24/2024 10:14 AM Signed Call placed to pt, advised the lab order are placed in chart per Ryan Edwards CNP. Pt verbalized an understanding. Cristine Boykin LPN Allergies As of Date: 08/23/2024 (No Known Allergies) Date Reviewed: 01/05/2024 Reviewed by: Stan Tai Jr., MD - Fully Assessed Reason for Visit: Appointment [186] Primary Visit Diagnosis:Atrial fibrillation, unspecified type (HCC) [I48.91] Other Visit Diagnoses:Elevated prostate specific antigen (PSA) [R97.20] Primary hypertension [I10] Screening for deficiency anemia [Z13.0] Encounter for screening for diabetes mellitus [Z13.1] Screening for lipid disorders [Z13.220] Screening for thyroid disorder [Z13.29] Screening for malignant neoplasm of prostate [Z12.5] Order(s):COMPLETE BLOOD COUNT [SQCBC] Order #: [id number] FUTURE COMPREHENSIVE METABOLIC PANEL [SQCMP] Order #: [id number] FUTURE LIPID PANEL, FASTING [SQLIPB] Order #: [id number] FUTURE PSA/PROSTATE SPECIFIC ANTIGEN SCREENING [SQPSAS1] Order #: [id number] FUTURE THYROID STIMULATING HORMONE [SQTSH] Order #: [id number] FUTURE Prescriptions as of 08/24/2024 - warfarin (COUMADIN) 2 mg tablet Take 1 tablet by mouth daily as directed. - dilTIAZem CD (CARDIZEM CD, CARTIA XT) 240 mg 24 hr capsule TAKE 1 CAPSULE BY MOUTH EVERY DAY - sildenafil (VIAGRA) 50 mg tablet Take 1 tablet by mouth once daily as needed. - warfarin (COUMADIN) 4 mg tablet TAKE 2 TABLETS BY MOUTH ONCE DAILY INSTRUCTED - ondansetron (ZOFRAN) 8 mg tablet Take 1 tablet by mouth every 8 hours as needed for nausea/vomiting. - lactobacillus rhamnosus (CULTURELLE) 10 billion cell capsule Take 2 capsules by mouth two times a day for 14 days. - loperamide (IMODIUM) 2 mg cap(s) Take 1 capsule by mouth three times a day as needed for diarrhea for up to 7 days. - metoprolol succinate ER (TOPROL XL) 50 mg 24 hr tablet Take 1 tablet by mouth two times a day. - omega 6-tys-edw-fish oil (FISH OIL) 100-160-1,000 mg cap Take by mouth. - VIT B COMPLEX 100 COMBO NO.2 ORAL Take by mouth. - vitamin D3-vit K1-vit MK4-MK7 50-500-1,500 mcg cap Take by mouth. Problem List As Of Date 08/23/2024 Noted Resolved ENTHESOPATHY OF KNEE [726.6] 10/10/2003 PERS HX MALIG SKIN MELANOMA [Z85.820] 10/17/2003 SURGERY FOLLOW-UP [V67.0] 10/24/2003 A-fib (HCC) [I48.91] 02/26/2022 Elevated prostate specific antigen (PSA) [R97.2*06/18/2022 Preop examination [Z01.818] 04/20/2023 SHANNON (obstructive sleep apnea) [G47.33] 04/20/2023 Elevated BP without diagnosis of hypertension [*04/20/2023 Septic bursitis of elbow, left [M71.122] 04/22/2023 Cellulitis of left upper extremity [L03.114] 04/24/2023 Chest discomfort [R07.89] 04/28/2023 Localized edema [R60.0] 04/28/2023 Dyspnea on exertion [R06.09] 04/28/2023 Rupture of right Achilles tendon [S86.011A] 05/19/2023 Sepsis (HCC) [A41.9] 06/08/2023 09/18/2023 Malignant melanoma of torso excluding breast (H*09/14/2023 Hx of retinal detachment [Z86.69] 12/03/2023 Encounter Status:Closed by CRISTINE BOYKIN on 08/23/24 [facility] 08-15-2024 CNNURSE Nurse Visit (AGINTML W) RU WORKMAN ([id number]) 1955 M Date Time Provider Department 08/15/24 8:40 AM NURSE TARAS DUQUE During your visit today, we recorded the following information about you: Blood pressure 138/78 Cristine Boykin LPN 08/15/2024 9:00 AM Signed INR (POCT) Date Value Ref Range Status 08/15/2024 1.8 (H) 0.8 - 1.2 Final 08/15/24 0854 08/15/24 0855 BP: 140/80 138/78 Pt here for INR check as ordered by Ryan Edwards CNP. Pt's INR today is 1.8. Pt currently taking warfarin 6 mg tues, thurs and 8 mg on all other days. Last INR 08/01/2024 was 2.5. Per Ryan Edwards CNP, pt to take warfarin 6 mg Thurs and 8 mg all other days. Recheck in 2 weeks. Pt aware and verbalized an understanding. Cristine Boykin LPN Referring Provider: RYAN EDWARDS [[id number]] Allergies As of Date: 08/15/2024 (No Known Allergies) Date Reviewed: 01/05/2024 Reviewed by: Stan Tai Jr., MD - Fully Assessed Reason for Visit: Coumadin/INR [1207] Primary Visit Diagnosis:Atrial fibrillation, unspecified type (HCC) [I48.91] Prescriptions as of 08/15/2024 - dilTIAZem CD (CARDIZEM CD, CARTIA XT) 240 mg 24 hr capsule TAKE 1 CAPSULE BY MOUTH EVERY DAY - sildenafil (VIAGRA) 50 mg tablet Take 1 tablet by mouth once daily as needed. - warfarin (COUMADIN) 4 mg tablet TAKE 2 TABLETS BY MOUTH ONCE DAILY INSTRUCTED - warfarin (COUMADIN) 5 mg tablet take 1 tablet by mouth every day - ondansetron (ZOFRAN) 8 mg tablet Take 1 tablet by mouth every 8 hours as needed for nausea/vomiting. - lactobacillus rhamnosus (CULTURELLE) 10 billion cell capsule Take 2 capsules by mouth two times a day for 14 days. - loperamide (IMODIUM) 2 mg cap(s) Take 1 capsule by mouth three times a day as needed for diarrhea for up to 7 days. - metoprolol succinate ER (TOPROL XL) 50 mg 24 hr tablet Take 1 tablet by mouth two times a day. - warfarin (COUMADIN) 2 mg tablet Take 1 tablet by mouth daily as directed. - omega 2-atv-mty-fish oil (FISH OIL) 100-160-1,000 mg cap Take by mouth. - VIT B COMPLEX 100 COMBO NO.2 ORAL Take by mouth. - vitamin D3-vit K1-vit MK4-MK7 50-500-1,500 mcg cap Take by mouth. Problem List As Of Date 08/15/2024 Noted Resolved ENTHESOPATHY OF KNEE [726.6] 10/10/2003 PERS HX MALIG SKIN MELANOMA [Z85.820] 10/17/2003 SURGERY FOLLOW-UP [V67.0] 10/24/2003 A-fib (HCC) [I48.91] 02/26/2022 Elevated prostate specific antigen (PSA) [R97.2*06/18/2022 Preop examination [Z01.818] 04/20/2023 SHANNON (obstructive sleep apnea) [G47.33] 04/20/2023 Elevated BP without diagnosis of hypertension [*04/20/2023 Septic bursitis of elbow, left [M71.122] 04/22/2023 Cellulitis of left upper extremity [L03.114] 04/24/2023 Chest discomfort [R07.89] 04/28/2023 Localized edema [R60.0] 04/28/2023 Dyspnea on exertion [R06.09] 04/28/2023 Rupture of right Achilles tendon [S86.011A] 05/19/2023 Sepsis (HCC) [A41.9] 06/08/2023 09/18/2023 Malignant melanoma of torso excluding breast (H*09/14/2023 Hx of retinal detachment [Z86.69] 12/03/2023 Encounter Status:Closed by CRISTINE BOYKIN on 08/15/24 [facility] Alfie 08-09-2024 CNPN Telephone (AGPOB3) RU WORKMAN ([id number]) 1955 Date Time Provider Department 08/09/24 DARVIN RUBIO AGPOB3 During your visit today, we recorded the following information about you: Zulema Hooks 08/09/2024 3:17 PM Signed ----- Message from Britta Pereira sent at 08/09/2024 2:50 PM EDT ----- Regarding: Orthopedics / Hand: RFV Not Found / RFV Not Found In [employer] Orthopedics / Hand: RFV Not Found / RFV Not Found In [employer] Patient has been identified by name and Date of (Y/N): Y Patient: Ru Workman Date of : 1955 Previous Provider Seen: Alvarez (Unrelated concern) Body Part(s) Identified: left hand thumb Diagnosis/Reason For Visit: patient said his left hand thumb is not functional Reason for the call/escalation: I am unable to schedule per tool. Patient has a referral from his PCP to see if possible. If reason for call/escalation is discharge from ED/ER or Hospital, which facility was the patient seen at: na Was an appointment scheduled (Y/N): n Person calling if other than patient: n Return call to if other than patient: n Best contact number: [phone] Thank you, Britta Chisholm August 09, 2024 2:50 PM Allergies As of Date: 08/09/2024 (No Known Allergies) Date Reviewed: 01/05/2024 Reviewed by: Stan Tai Jr., MD - Fully Assessed Reason for Visit: Appointment [186] Cmt: Bill THAKUR Prescriptions as of 08/10/2024 - dilTIAZem CD (CARDIZEM CD, CARTIA XT) 240 mg 24 hr capsule TAKE 1 CAPSULE BY MOUTH EVERY DAY - sildenafil (VIAGRA) 50 mg tablet Take 1 tablet by mouth once daily as needed. - warfarin (COUMADIN) 4 mg tablet TAKE 2 TABLETS BY MOUTH ONCE DAILY INSTRUCTED - warfarin (COUMADIN) 5 mg tablet take 1 tablet by mouth every day - ondansetron (ZOFRAN) 8 mg tablet Take 1 tablet by mouth every 8 hours as needed for nausea/vomiting. - lactobacillus rhamnosus (CULTURELLE) 10 billion cell capsule Take 2 capsules by mouth two times a day for 14 days. - loperamide (IMODIUM) 2 mg cap(s) Take 1 capsule by mouth three times a day as needed for diarrhea for up to 7 days. - metoprolol succinate ER (TOPROL XL) 50 mg 24 hr tablet Take 1 tablet by mouth two times a day. - warfarin (COUMADIN) 2 mg tablet Take 1 tablet by mouth daily as directed. - omega 1-hik-sew-fish oil (FISH OIL) 100-160-1,000 mg cap Take by mouth. - VIT B COMPLEX 100 COMBO NO.2 ORAL Take by mouth. - vitamin D3-vit K1-vit MK4-MK7 50-500-1,500 mcg cap Take by mouth. Problem List As Of Date 08/09/2024 Noted Resolved ENTHESOPATHY OF KNEE [726.6] 10/10/2003 PERS HX MALIG SKIN MELANOMA [Z85.820] 10/17/2003 SURGERY FOLLOW-UP [V67.0] 10/24/2003 A-fib (HCC) [I48.91] 02/26/2022 Elevated prostate specific antigen (PSA) [R97.2*06/18/2022 Preop examination [Z01.818] 04/20/2023 SHANNON (obstructive sleep apnea) [G47.33] 04/20/2023 Elevated BP without diagnosis of hypertension [*04/20/2023 Septic bursitis of elbow, left [M71.122] 04/22/2023 Cellulitis of left upper extremity [L03.114] 04/24/2023 Chest discomfort [R07.89] 04/28/2023 Localized edema [R60.0] 04/28/2023 Dyspnea on exertion [R06.09] 04/28/2023 Rupture of right Achilles tendon [S86.011A] 05/19/2023 Sepsis (HCC) [A41.9] 06/08/2023 09/18/2023 Malignant melanoma of torso excluding breast (H*09/14/2023 Hx of retinal detachment [Z86.69] 12/03/2023 Encounter Status:Closed by ZULEMA HOOKS on 08/10/24 [facility] CNNURSEon 08-01-2024 CNNURSE Nurse Visit (AGINTML W) RU WORKMAN ([id number]) 1955 M Date Time Provider Department 08/01/24 8:40 AM NURSE TARAS KHAN AGINTMLW During your visit today, we recorded the following information about you: Blood pressure 120/72 Dana Davis MA 08/01/2024 10:10 AM Signed Patient here for INR check. Last INR was 3.8 on 07/25/24, at that time Ryan Edwards CNP had patient hold his coumadin then take 6 mg Thursday, and 8 mg all other days. Patient's INR today was 2.5. Per conversation with Ryan Edwards CNP patient informed to take coumadin 6 mg Thursday, , 8 mg all other days and recheck in 2 weeks. Dana Davis MA Referring Provider: RYAN EDWARDS [[id number]] Allergies As of Date: 08/01/2024 (No Known Allergies) Date Reviewed: 01/05/2024 Reviewed by: Stan Tai Jr., MD - Fully Assessed Reason for Visit: Coumadin/INR [1207] Primary Visit Diagnosis:Atrial fibrillation, unspecified type (HCC) [I48.91] Order(s):INR (POC) [4840079] Order #: [id number] INR (POC) [2705900] Order #: [id number]. #:[id number] -LAB Prescriptions as of 08/01/2024 - dilTIAZem CD (CARDIZEM CD, CARTIA XT) 240 mg 24 hr capsule TAKE 1 CAPSULE BY MOUTH EVERY DAY - sildenafil (VIAGRA) 50 mg tablet Take 1 tablet by mouth once daily as needed. - warfarin (COUMADIN) 4 mg tablet TAKE 2 TABLETS BY MOUTH ONCE DAILY INSTRUCTED - warfarin (COUMADIN) 5 mg tablet take 1 tablet by mouth every day - ondansetron (ZOFRAN) 8 mg tablet Take 1 tablet by mouth every 8 hours as needed for nausea/vomiting. - lactobacillus rhamnosus (CULTURELLE) 10 billion cell capsule Take 2 capsules by mouth two times a day for 14 days. - loperamide (IMODIUM) 2 mg cap(s) Take 1 capsule by mouth three times a day as needed for diarrhea for up to 7 days. - metoprolol succinate ER (TOPROL XL) 50 mg 24 hr tablet Take 1 tablet by mouth two times a day. - warfarin (COUMADIN) 2 mg tablet Take 1 tablet by mouth daily as directed. - omega 3-poh-oib-fish oil (FISH OIL) 100-160-1,000 mg cap Take by mouth. - VIT B COMPLEX 100 COMBO NO.2 ORAL Take by mouth. - vitamin D3-vit K1-vit MK4-MK7 50-500-1,500 mcg cap Take by mouth. Problem List As Of Date 08/01/2024 Noted Resolved ENTHESOPATHY OF KNEE [726.6] 10/10/2003 PERS HX MALIG SKIN MELANOMA [Z85.820] 10/17/2003 SURGERY FOLLOW-UP [V67.0] 10/24/2003 A-fib (HCC) [I48.91] 02/26/2022 Elevated prostate specific antigen (PSA) [R97.2*06/18/2022 Preop examination [Z01.818] 04/20/2023 SHANNON (obstructive sleep apnea) [G47.33] 04/20/2023 Elevated BP without diagnosis of hypertension [*04/20/2023 Septic bursitis of elbow, left [M71.122] 04/22/2023 Cellulitis of left upper extremity [L03.114] 04/24/2023 Chest discomfort [R07.89] 04/28/2023 Localized edema [R60.0] 04/28/2023 Dyspnea on exertion [R06.09] 04/28/2023 Rupture of right Achilles tendon [S86.011A] 05/19/2023 Sepsis (HCC) [A41.9] 06/08/2023 09/18/2023 Malignant melanoma of torso excluding breast (H*09/14/2023 Hx of retinal detachment [Z86.69] 12/03/2023 Encounter Status:Closed by DANA DAVIS on 08/01/24 Normal [facility] INR (POC)on 08-01-2024 INR Coag (PPP) [Relative time] 2.5 {INR} High 0.8 - 1.2 [facility] Internal Quality Check Acceptable [facility] Interpretation and review of laboratory results Abnormal [facility] Location:[facility], [address] [place] [address], [address] [place] [address] POINT OF CARE [facility] CNNURSEon 07-25-2024 CNNURSE Nurse Visit (AGINTML W) RU WORKMAN ([id number]) 1955 M Date Time Provider Department 07/25/24 8:40 AM NURSE TARAS KHAN AGINTMLW During your visit today, we recorded the following information about you: Blood pressure 128/70 Dana Davis MA 07/25/2024 8:46 AM Signed Patient here for INR check. Last INR was 2.2 on 06/27. Patient is currently taking coumadin 6 mg and 8 mg all other days, states he has missed a dose in the last month he thinks but not recently. Patient's INR was 3.8. Per conversation with Ryan Edwards CNP patient informed to hold coumadin today then take 6 mg Thursday, , 8 mg all other days and recheck in 1 week. Dana Davis MA Referring Provider: RYAN EDWARDS [[id number]] Allergies As of Date: 07/25/2024 (No Known Allergies) Date Reviewed: 01/05/2024 Reviewed by: Stan Tai Jr., MD - Fully Assessed Reason for Visit: Coumadin/INR [1207] Primary Visit Diagnosis:Atrial fibrillation, unspecified type (HCC) [I48.91] Order(s):INR (POC) [1965819] Order #: [id number] INR (POC) [7465819] Order #: [id number]. #:[id number] -LAB Prescriptions as of 07/25/2024 - dilTIAZem CD (CARDIZEM CD, CARTIA XT) 240 mg 24 hr capsule TAKE 1 CAPSULE BY MOUTH EVERY DAY - sildenafil (VIAGRA) 50 mg tablet Take 1 tablet by mouth once daily as needed. - warfarin (COUMADIN) 4 mg tablet TAKE 2 TABLETS BY MOUTH ONCE DAILY INSTRUCTED - warfarin (COUMADIN) 5 mg tablet take 1 tablet by mouth every day - ondansetron (ZOFRAN) 8 mg tablet Take 1 tablet by mouth every 8 hours as needed for nausea/vomiting. - lactobacillus rhamnosus (CULTURELLE) 10 billion cell capsule Take 2 capsules by mouth two times a day for 14 days. - loperamide (IMODIUM) 2 mg cap(s) Take 1 capsule by mouth three times a day as needed for diarrhea for up to 7 days. - metoprolol succinate ER (TOPROL XL) 50 mg 24 hr tablet Take 1 tablet by mouth two times a day. - warfarin (COUMADIN) 2 mg tablet Take 1 tablet by mouth daily as directed. - omega 2-cps-jld-fish oil (FISH OIL) 100-160-1,000 mg cap Take by mouth. - VIT B COMPLEX 100 COMBO NO.2 ORAL Take by mouth. - vitamin D3-vit K1-vit MK4-MK7 50-500-1,500 mcg cap Take by mouth. Problem List As Of Date 07/25/2024 Noted Resolved ENTHESOPATHY OF KNEE [726.6] 10/10/2003 PERS HX MALIG SKIN MELANOMA [Z85.820] 10/17/2003 SURGERY FOLLOW-UP [V67.0] 10/24/2003 A-fib (HCC) [I48.91] 02/26/2022 Elevated prostate specific antigen (PSA) [R97.2*06/18/2022 Preop examination [Z01.818] 04/20/2023 SHANNON (obstructive sleep apnea) [G47.33] 04/20/2023 Elevated BP without diagnosis of hypertension [*04/20/2023 Septic bursitis of elbow, left [M71.122] 04/22/2023 Cellulitis of left upper extremity [L03.114] 04/24/2023 Chest discomfort [R07.89] 04/28/2023 Localized edema [R60.0] 04/28/2023 Dyspnea on exertion [R06.09] 04/28/2023 Rupture of right Achilles tendon [S86.011A] 05/19/2023 Sepsis (HCC) [A41.9] 06/08/2023 09/18/2023 Malignant melanoma of torso excluding breast (H*09/14/2023 Hx of retinal detachment [Z86.69] 12/03/2023 Encounter Status:[facility] Telephone (AGINTMLW) RU WORKMAN ([id number]) 1955 Date Time Provider Department 07/25/24 RYAN EDWARDS INTML During your visit today, we recorded the following information about you: Allergies As of Date: 07/25/2024 (No Known Allergies) Date Reviewed: 01/05/2024 Reviewed by: Stan Tai Jr., MD - Fully Assessed Reason for Visit: Orders [681] Primary Visit Diagnosis:Hemorrhoids, unspecified hemorrhoid type [K64.9] Order(s):CONSULT TO GASTROENTEROLOGY [9010] Order #: [id number]: 1 FUTURE Prescriptions as of 07/25/2024 - dilTIAZem CD (CARDIZEM CD, CARTIA XT) 240 mg 24 hr capsule TAKE 1 CAPSULE BY MOUTH EVERY DAY - sildenafil (VIAGRA) 50 mg tablet Take 1 tablet by mouth once daily as needed. - warfarin (COUMADIN) 4 mg tablet TAKE 2 TABLETS BY MOUTH ONCE DAILY INSTRUCTED - warfarin (COUMADIN) 5 mg tablet take 1 tablet by mouth every day - ondansetron (ZOFRAN) 8 mg tablet Take 1 tablet by mouth every 8 hours as needed for nausea/vomiting. - lactobacillus rhamnosus (CULTURELLE) 10 billion cell capsule Take 2 capsules by mouth two times a day for 14 days. - loperamide (IMODIUM) 2 mg cap(s) Take 1 capsule by mouth three times a day as needed for diarrhea for up to 7 days. - metoprolol succinate ER (TOPROL XL) 50 mg 24 hr tablet Take 1 tablet by mouth two times a day. - warfarin (COUMADIN) 2 mg tablet Take 1 tablet by mouth daily as directed. - omega 5-ldn-tju-fish oil (FISH OIL) 100-160-1,000 mg cap Take by mouth. - VIT B COMPLEX 100 COMBO NO.2 ORAL Take by mouth. - vitamin D3-vit K1-vit MK4-MK7 50-500-1,500 mcg cap Take by mouth. Problem List As Of Date 07/25/2024 Noted Resolved ENTHESOPATHY OF KNEE [726.6] 10/10/2003 PERS HX MALIG SKIN MELANOMA [Z85.820] 10/17/2003 SURGERY FOLLOW-UP [V67.0] 10/24/2003 A-fib (HCC) [I48.91] 02/26/2022 Elevated prostate specific antigen (PSA) [R97.2*06/18/2022 Preop examination [Z01.818] 04/20/2023 SHANNON (obstructive sleep apnea) [G47.33] 04/20/2023 Elevated BP without diagnosis of hypertension [*04/20/2023 Septic bursitis of elbow, left [M71.122] 04/22/2023 Cellulitis of left upper extremity [L03.114] 04/24/2023 Chest discomfort [R07.89] 04/28/2023 Localized edema [R60.0] 04/28/2023 Dyspnea on exertion [R06.09] 04/28/2023 Rupture of right Achilles tendon [S86.011A] 05/19/2023 Sepsis (HCC) [A41.9] 06/08/2023 09/18/2023 Malignant melanoma of torso excluding breast (H*09/14/2023 Hx of retinal detachment [Z86.69] 12/03/2023 Encounter Status:Closed by RYAN EDWARDS on 07/25/24 Normal [facility] INR (POC)on 07-25-2024 INR Coag (PPP) [Relative time] 3.8 {INR} High 0.8 - 1.2 [facility] Internal Quality Check Acceptable [facility] Interpretation and review of laboratory results Abnormal [facility] Location:[facility], [address] [place] [address], [address] [place] [address] POINT OF CARE [facility] CNNURSEon 06-27-2024 CNNURSE Nurse Visit (AGINTML W) RU WORKMAN ([id number]) 1955 M Date Time Provider Department 06/27/24 9:40 AM NURSE TARAS BOSTONINTMLW During your visit today, we recorded the following information about you: Blood pressure 128/60 Cristine Boykin LPN 06/27/2024 11:15 AM Signed INR (POCT) Date Value Ref Range Status 06/27/2024 2.2 (H) 0.8 - 1.2 Final 06/27/24 1050 BP: 128/60 Pt here for INR check as ordered by Ryan Edwards CNP. INR 2.2 Pt currently taking 6 mg on and 8 mg all other days. Last INR 2.7 on 05/25/2024 Per Ryan Edwards CNP continue current dosage. Recheck in 1 month. Pt aware and verbalized an understanding. Cristine Boykin LPN Referring Provider: RYAN EDWARDS [[id number]] Allergies As of Date: 06/27/2024 (No Known Allergies) Date Reviewed: 01/05/2024 Reviewed by: Stan Tai Jr., MD - Fully Assessed Reason for Visit: Coumadin/INR [1207] Primary Visit Diagnosis:Atrial fibrillation, unspecified type (HCC) [I48.91] Order(s):INR (POC) [9549924] Order #: [id number] Prescriptions as of 06/27/2024 - dilTIAZem CD (CARDIZEM CD, CARTIA XT) 240 mg 24 hr capsule TAKE 1 CAPSULE BY MOUTH EVERY DAY - sildenafil (VIAGRA) 50 mg tablet Take 1 tablet by mouth once daily as needed. - warfarin (COUMADIN) 4 mg tablet TAKE 2 TABLETS BY MOUTH ONCE DAILY INSTRUCTED - warfarin (COUMADIN) 5 mg tablet take 1 tablet by mouth every day - ondansetron (ZOFRAN) 8 mg tablet Take 1 tablet by mouth every 8 hours as needed for nausea/vomiting. - lactobacillus rhamnosus (CULTURELLE) 10 billion cell capsule Take 2 capsules by mouth two times a day for 14 days. - loperamide (IMODIUM) 2 mg cap(s) Take 1 capsule by mouth three times a day as needed for diarrhea for up to 7 days. - metoprolol succinate ER (TOPROL XL) 50 mg 24 hr tablet Take 1 tablet by mouth two times a day. - warfarin (COUMADIN) 2 mg tablet Take 1 tablet by mouth daily as directed. - omega 1-qev-eee-fish oil (FISH OIL) 100-160-1,000 mg cap Take by mouth. - VIT B COMPLEX 100 COMBO NO.2 ORAL Take by mouth. - vitamin D3-vit K1-vit MK4-MK7 50-500-1,500 mcg cap Take by mouth. Problem List As Of Date 06/27/2024 Noted Resolved ENTHESOPATHY OF KNEE [726.6] 10/10/2003 PERS HX MALIG SKIN MELANOMA [Z85.820] 10/17/2003 SURGERY FOLLOW-UP [V67.0] 10/24/2003 A-fib (HCC) [I48.91] 02/26/2022 Elevated prostate specific antigen (PSA) [R97.2*06/18/2022 Preop examination [Z01.818] 04/20/2023 SHANNON (obstructive sleep apnea) [G47.33] 04/20/2023 Elevated BP without diagnosis of hypertension [*04/20/2023 Septic bursitis of elbow, left [M71.122] 04/22/2023 Cellulitis of left upper extremity [L03.114] 04/24/2023 Chest discomfort [R07.89] 04/28/2023 Localized edema [R60.0] 04/28/2023 Dyspnea on exertion [R06.09] 04/28/2023 Rupture of right Achilles tendon [S86.011A] 05/19/2023 Sepsis (HCC) [A41.9] 06/08/2023 09/18/2023 Malignant melanoma of torso excluding breast (H*09/14/2023 Hx of retinal detachment [Z86.69] 12/03/2023 Encounter Status:Closed by CRISTINE BOYKIN on 06/27/24 [facility] CNNURSEon 05-25-2024 CNNURSE Nurse Visit (AGINTML W) RU WORKMAN ([id number]) 1955 M Date Time Provider Department 05/25/24 9:20 AM NURSE TARAS KHAN AGINTMLW During your visit today, we recorded the following information about you: Blood pressure 128/72 Cristine Boykin LPN 05/25/2024 10:39 AM Signed INR (POCT) Date Value Ref Range Status 05/25/2024 2.7 (H) 0.8 - 1.2 Final Pt in office for INR today. INR result 2.7. Last INR was 1.9 on 04/25/2024. Pt currently taking warfarin 6 mg on and 8 mg all other days. Please advise OTF Belle Charlene M, NON DESTRUCTIVE TESTING ENGINEER.WAFFLE MACHINE OPERATOR 05/25/2024 10:41 AM Signed No change follow up one month Dana Davis MA 05/25/2024 11:37 AM Signed Patient informed and scheduled for 1 month. Dana Davis MA Referring Provider: RYAN EDWARDS [[id number]] Allergies As of Date: 05/25/2024 (No Known Allergies) Date Reviewed: 01/05/2024 Reviewed by: Stan Tai Jr., MD - Fully Assessed Reason for Visit: Coumadin/INR [1207] Primary Visit Diagnosis:Atrial fibrillation, unspecified type (HCC) [I48.91] Order(s):INR (POC) [[id number]] Order #: [id number] #:[id number] -LAB INR (POC) [[id number]] Order #: [id number] Prescriptions as of 05/25/2024 - dilTIAZem CD (CARDIZEM CD, CARTIA XT) 240 mg 24 hr capsule Take 1 capsule by mouth once daily. - sildenafil (VIAGRA) 50 mg tablet Take 1 tablet by mouth once daily as needed. - warfarin (COUMADIN) 4 mg tablet TAKE 2 TABLETS BY MOUTH ONCE DAILY INSTRUCTED - warfarin (COUMADIN) 5 mg tablet take 1 tablet by mouth every day - ondansetron (ZOFRAN) 8 mg tablet Take 1 tablet by mouth every 8 hours as needed for nausea/vomiting. - lactobacillus rhamnosus (CULTURELLE) 10 billion cell capsule Take 2 capsules by mouth two times a day for 14 days. - loperamide (IMODIUM) 2 mg cap(s) Take 1 capsule by mouth three times a day as needed for diarrhea for up to 7 days. - metoprolol succinate ER (TOPROL XL) 50 mg 24 hr tablet Take 1 tablet by mouth two times a day. - warfarin (COUMADIN) 2 mg tablet Take 1 tablet by mouth daily as directed. - omega 9-vig-wrk-fish oil (FISH OIL) 100-160-1,000 mg cap Take by mouth. - VIT B COMPLEX 100 COMBO NO.2 ORAL Take by mouth. - vitamin D3-vit K1-vit MK4-MK7 50-500-1,500 mcg cap Take by mouth. Problem List As Of Date 05/25/2024 Noted Resolved ENTHESOPATHY OF KNEE [726.6] 10/10/2003 PERS HX MALIG SKIN MELANOMA [Z85.820] 10/17/2003 SURGERY FOLLOW-UP [V67.0] 10/24/2003 A-fib (HCC) [I48.91] 02/26/2022 Elevated prostate specific antigen (PSA) [R97.2*06/18/2022 Preop examination [Z01.818] 04/20/2023 SHANNON (obstructive sleep apnea) [G47.33] 04/20/2023 Elevated BP without diagnosis of hypertension [*04/20/2023 Septic bursitis of elbow, left [M71.122] 04/22/2023 Cellulitis of left upper extremity [L03.114] 04/24/2023 Chest discomfort [R07.89] 04/28/2023 Localized edema [R60.0] 04/28/2023 Dyspnea on exertion [R06.09] 04/28/2023 Rupture of right Achilles tendon [S86.011A] 05/19/2023 Sepsis (HCC) [A41.9] 06/08/2023 09/18/2023 Malignant melanoma of torso excluding breast (H*09/14/2023 Hx of retinal detachment [Z86.69] 12/03/2023 Encounter Status:Closed by CRISTINE BOYKIN on 05/25/24 Normal [facility] INR (POC)on 05-25-2024 INR Coag (PPP) [Relative time] 2.7 {INR} High 0.8 - 1.2 [facility] Internal Quality Check Acceptable [facility] Interpretation and review of laboratory results Abnormal [facility] Location:[facility], [address] [place] [address], [address] [place] [address] POINT OF CARE [facility] CNNURSEon 04-25-2024 CNNURSE Nurse Visit (AGINTML W) RU WORKMAN ([id number]) 1955 M Date Time Provider Department 04/25/24 9:20 AM NURSE INTM DARVIN KHAN AGCORAZONW During your visit today, we recorded the following information about you: Blood pressure 128/68 Cristine Boykin LPN 04/25/2024 10:03 AM Signed INR (POCT) Date Value Ref Range Status 04/25/2024 1.9 (H) 0.8 - 1.2 Final INR today 1.9 Last INR 1.7 Pt current dosage is warfarin 6 on and 8 mg all other days. Per pt he missed one dosage on 04/16/2024 Please advise OTF Belle Charlene M, NON DESTRUCTIVE TESTING ENGINEER.WAFFLE MACHINE OPERATOR 04/25/2024 1:09 PM Signed Since he missed a dose. Well continue him on current dose and recheck in 4 wks Cristine Boykin LPN 04/25/2024 4:02 PM Signed Call placed to pt, advised of recommendation. Pt and verbalized an understanding. Cristine Boykin LPN Referring Provider: RYAN EDWARDS [[id number]] Allergies As of Date: 04/25/2024 (No Known Allergies) Date Reviewed: 01/05/2024 Reviewed by: Stan Tai Jr., MD - Fully Assessed Reason for Visit: Coumadin/INR [1207] Primary Visit Diagnosis:Atrial fibrillation, unspecified type (HCC) [I48.91] Order(s):INR (POC) [[id number]] Order #: [id number] Prescriptions as of 04/25/2024 - warfarin (COUMADIN) 4 mg tablet TAKE 2 TABLETS BY MOUTH ONCE DAILY INSTRUCTED - warfarin (COUMADIN) 5 mg tablet take 1 tablet by mouth every day - Tadalafil (CIALIS) 20 mg tablet Take 1 tablet by mouth once daily as needed. Take 1-2 hours before sexual activity. - ondansetron (ZOFRAN) 8 mg tablet Take 1 tablet by mouth every 8 hours as needed for nausea/vomiting. - dilTIAZem CD (CARDIZEM CD, CARTIA XT) 240 mg 24 hr capsule Take 1 capsule by mouth once daily. - lactobacillus rhamnosus (CULTURELLE) 10 billion cell capsule Take 2 capsules by mouth two times a day for 14 days. - loperamide (IMODIUM) 2 mg cap(s) Take 1 capsule by mouth three times a day as needed for diarrhea for up to 7 days. - metoprolol succinate ER (TOPROL XL) 50 mg 24 hr tablet Take 1 tablet by mouth two times a day. - warfarin (COUMADIN) 2 mg tablet Take 1 tablet by mouth daily as directed. - sildenafil (VIAGRA) 50 mg tablet TAKE 1 TABLET BY MOUTH NEEDED 30 - 60 MINUTES BEFORE SEXUAL INTERCOURSE - omega 4-afh-tuy-fish oil (FISH OIL) 100-160-1,000 mg cap Take by mouth. - VIT B COMPLEX 100 COMBO NO.2 ORAL Take by mouth. - vitamin D3-vit K1-vit MK4-MK7 50-500-1,500 mcg cap Take by mouth. Problem List As Of Date 04/25/2024 Noted Resolved ENTHESOPATHY OF KNEE [726.6] 10/10/2003 PERS HX MALIG SKIN MELANOMA [Z85.820] 10/17/2003 SURGERY FOLLOW-UP [V67.0] 10/24/2003 A-fib (HCC) [I48.91] 02/26/2022 Elevated prostate specific antigen (PSA) [R97.2*06/18/2022 Preop examination [Z01.818] 04/20/2023 SHANNON (obstructive sleep apnea) [G47.33] 04/20/2023 Elevated BP without diagnosis of hypertension [*04/20/2023 Septic bursitis of elbow, left [M71.122] 04/22/2023 Cellulitis of left upper extremity [L03.114] 04/24/2023 Chest discomfort [R07.89] 04/28/2023 Localized edema [R60.0] 04/28/2023 Dyspnea on exertion [R06.09] 04/28/2023 Rupture of right Achilles tendon [S86.011A] 05/19/2023 Sepsis (HCC) [A41.9] 06/08/2023 09/18/2023 Malignant melanoma of torso excluding breast (H*09/14/2023 Hx of retinal detachment [Z86.69] 12/03/2023 Visit Notes: >> Cristine Boykin LPN Mon Apr 25, 2024 10:00 AM Status: Signed INR (POCT) Date Value Ref Range Status 04/25/2024 1.9 (H) 0.8 - 1.2 Final INR today 1.9 Last INR 1.7 Pt current dosage is warfarin 6 on and 8 mg all other days. Per pt he missed one dosage on 04/16/2024 Please advise Cristine Boykin LPN >> Ryan Edwards APRN.WAFFLE MACHINE OPERATOR ThuApr 25, 2024 1:07 PM Status: Signed Since he missed a dose. Well continue him on current dose and recheck in 4 wks >> Cristine Boykin LPN ThuApr 25, 2024 3:58 PM Status: Signed Call placed to pt, advised of recommendation. Pt and verbalized an understanding. Cristine Boykin LPN Encounter Status:Closed by CRISTINE BOYKIN on 04[facility] Nurse Visit (AGINTML W) RU WORKMAN ([id number]) 1955 M Date Time Provider Department 04/11/24 8:40 AM NURSE TARAS KHAN AGINTMLW During your visit today, we recorded the following information about you: Blood pressure 138/72 Cristine Boykin LPN 04/11/2024 9:20 AM Signed INR 1.7 today 04/11/2024 Last INR 2.2 on 03/14/2024 Per pt he is currently taking warfarin 8 mg thu, thu, thu and 6 mg all other days. Per pt he has been taking his warfarin. No changes in anything. 1st bp 152/80 2nd bp 138/72 Please advise. OTF Belle Charlene M, APRN.WAFFLE MACHINE OPERATOR 04/11/2024 12:24 PM Signed New dose 8 mg daily except 6 mg on . Recheck in 2 wks Cristine Boykin LPN 04/11/2024 2:00 PM Signed Left message for pt with this information. Advised pt to call office if he has any questions. Apt made for 04/25/2024 for INR. Cristine Boykin LPN Allergies As of Date: 04/11/2024 (No Known Allergies) Date Reviewed: 01/05/2024 Reviewed by: Stan Tai Jr., MD - Fully Assessed Reason for Visit: Coumadin/INR [1207] Primary Visit Diagnosis:Atrial fibrillation, unspecified type (HCC) [I48.91] Order(s):INR (POC) [[id number]] Order #: [id number] Prescriptions as of 04/11/2024 - warfarin (COUMADIN) 4 mg tablet TAKE 2 TABLETS BY MOUTH ONCE DAILY INSTRUCTED - warfarin (COUMADIN) 5 mg tablet take 1 tablet by mouth every day - Tadalafil (CIALIS) 20 mg tablet Take 1 tablet by mouth once daily as needed. Take 1-2 hours before sexual activity. - ondansetron (ZOFRAN) 8 mg tablet Take 1 tablet by mouth every 8 hours as needed for nausea/vomiting. - dilTIAZem CD (CARDIZEM CD, CARTIA XT) 240 mg 24 hr capsule Take 1 capsule by mouth once daily. - lactobacillus rhamnosus (CULTURELLE) 10 billion cell capsule Take 2 capsules by mouth two times a day for 14 days. - loperamide (IMODIUM) 2 mg cap(s) Take 1 capsule by mouth three times a day as needed for diarrhea for up to 7 days. - metoprolol succinate ER (TOPROL XL) 50 mg 24 hr tablet Take 1 tablet by mouth two times a day. - warfarin (COUMADIN) 2 mg tablet Take 1 tablet by mouth daily as directed. - sildenafil (VIAGRA) 50 mg tablet TAKE 1 TABLET BY MOUTH NEEDED 30 - 60 MINUTES BEFORE SEXUAL INTERCOURSE - omega 9-jun-zfp-fish oil (FISH OIL) 100-160-1,000 mg cap Take by mouth. - VIT B COMPLEX 100 COMBO NO.2 ORAL Take by mouth. - vitamin D3-vit K1-vit MK4-MK7 50-500-1,500 mcg cap Take by mouth. Problem List As Of Date 04/11/2024 Noted Resolved ENTHESOPATHY OF KNEE [726.6] 10/10/2003 PERS HX MALIG SKIN MELANOMA [Z85.820] 10/17/2003 SURGERY FOLLOW-UP [V67.0] 10/24/2003 A-fib (HCC) [I48.91] 02/26/2022 Elevated prostate specific antigen (PSA) [R97.2*06/18/2022 Preop examination [Z01.818] 04/20/2023 SHANNON (obstructive sleep apnea) [G47.33] 04/20/2023 Elevated BP without diagnosis of hypertension [*04/20/2023 Septic bursitis of elbow, left [M71.122] 04/22/2023 Cellulitis of left upper extremity [L03.114] 04/24/2023 Chest discomfort [R07.89] 04/28/2023 Localized edema [R60.0] 04/28/2023 Dyspnea on exertion [R06.09] 04/28/2023 Rupture of right Achilles tendon [S86.011A] 05/19/2023 Sepsis (HCC) [A41.9] 06/08/2023 09/18/2023 Malignant melanoma of torso excluding breast (H*09/14/2023 Hx of retinal detachment [Z86.69] 12/03/2023 Encounter Status:Closed by CRISTINE BOKYIN on 04/11/24 [facility] RU WORK[facility] ([id number]) 1955 M Date Time Provider Department 04/01/24 ILEANA QUIROZ [facility] During your visit today, we recorded the following information about you: Emili Zepeda 04/01/2024 9:57 AM Signed Ru Wormkan [facility]# [id number] Patient calling, yesterday had a floater, size of a fly, zipping past in OD, it is intermittent but still there every now and then. No decrease in vision, no other symptoms. He said you told him to call if this happens Should he schedule a sooner appt w/you or what do you advise [facility] 12/01/24 Ileana Quiroz MD, PhD filed at 12/03/2023 10:35 AM Status: Signed Here for annual exam He thinks he needs a new MRX 1. 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 Posterior chamber intraocular lens (PCIOL) both eyes -s/p YAG right eye Plan: Return annually See Dr Monet for mrx Emili Zepeda 04/01/2024 10:29 AM Signed From: Jaya Hernandez Sent: Monday, April 01, 2024 10:25 AM To: Chantale Gómez ; Emili Good ; Ileana Quiroz ; Elder Nguyen Subject: Re: Ru Workman Ok, will do. Thanks! From: Chantale Gómez Sent: Monday, April 01, 2024 10:22 AM To: Emili Good ; Ileana Quiroz ; Elder Nguyen ; Jaya Hernandez Subject: Re: Ru Workman We can see him in [place] on , can you call to see if he can come in? If any worsening or increase in floaters, flashes of light, or shadow in vision he should be seen sooner than . Thank you Allergies As of Date: 04/01/2024 (No Known Allergies) Date Reviewed: 01/05/2024 Reviewed by: Stan Tai Jr., MD - Fully Assessed Reason for Visit: Patient Question [6744] Prescriptions as of 04/01/2024 - warfarin (COUMADIN) 4 mg tablet TAKE 2 TABLETS BY MOUTH ONCE DAILY INSTRUCTED - warfarin (COUMADIN) 5 mg tablet take 1 tablet by mouth every day - Tadalafil (CIALIS) 20 mg tablet Take 1 tablet by mouth once daily as needed. Take 1-2 hours before sexual activity. - ondansetron (ZOFRAN) 8 mg tablet Take 1 tablet by mouth every 8 hours as needed for nausea/vomiting. - dilTIAZem CD (CARDIZEM CD, CARTIA XT) 240 mg 24 hr capsule Take 1 capsule by mouth once daily. - lactobacillus rhamnosus (CULTURELLE) 10 billion cell capsule Take 2 capsules by mouth two times a day for 14 days. - loperamide (IMODIUM) 2 mg cap(s) Take 1 capsule by mouth three times a day as needed for diarrhea for up to 7 days. - metoprolol succinate ER (TOPROL XL) 50 mg 24 hr tablet Take 1 tablet by mouth two times a day. - warfarin (COUMADIN) 2 mg tablet Take 1 tablet by mouth daily as directed. - sildenafil (VIAGRA) 50 mg tablet TAKE 1 TABLET BY MOUTH NEEDED 30 - 60 MINUTES BEFORE SEXUAL INTERCOURSE - omega 0-pej-ioq-fish oil (FISH OIL) 100-160-1,000 mg cap Take by mouth. - VIT B COMPLEX 100 COMBO NO.2 ORAL Take by mouth. - vitamin D3-vit K1-vit MK4-MK7 50-500-1,500 mcg cap Take by mouth. Problem List As Of Date 04/01/2024 Noted Resolved ENTHESOPATHY OF KNEE [726.6] 10/10/2003 PERS HX MALIG SKIN MELANOMA [Z85.820] 10/17/2003 SURGERY FOLLOW-UP [V67.0] 10/24/2003 A-fib (HCC) [I48.91] 02/26/2022 Elevated prostate specific antigen (PSA) [R97.2*06/18/2022 Preop examination [Z01.818] 04/20/2023 SHANNON (obstructive sleep apnea) [G47.33] 04/20/2023 Elevated BP without diagnosis of hypertension [*04/20/2023 Septic bursitis of elbow, left [M71.122] 04/22/2023 Cellulitis of left upper extremity [L03.114] 04/24/2023 Chest discomfort [R07.89] 04/28/2023 Localized edema [R60.0] 04/28/2023 Dyspnea on exertion [R06.09] 04/28/2023 Rupture of right Achilles tendon [S86.011A] 05/19/2023 Sepsis (HCC) [A41.9] 06/08/2023 09/18/2023 Malignant melanoma of torso excluding breast (H*09/14/2023 Hx of retinal detachment [Z86.69] 12/03/2023 Encounter Status:Closed by EMILI [facility]EPEDA [facility] Nurse Visit (AGINTML W) RU WORKMAN ([id number]) 1955 M Date Time Provider Department 03/14/24 8:40 AM NURSE TARAS KHAN AGINTMLW During your visit today, we recorded the following information about you: Blood pressure 128/72 Dana Davis MA 03/14/2024 9:25 AM Signed Patient here for INR check. Last INR was 2.6 pm 02/29/24. Patient is currently taking coumadin 8 mg Thursday, Thursday, Thursday, 6 mg all other days and denies missing any doses. Patient's INR today was 2.2. Per conversation with Ryan Edwards CNP patient informed to continue current dose and recheck in 1 month. Dana Davis MA Referring Provider: SELF [[id number]] Allergies As of Date: 03/14/2024 (No Known Allergies) Date Reviewed: 01/05/2024 Reviewed by: Stan Tai Jr., MD - Fully Assessed Reason for Visit: Coumadin/INR [1207] Primary Visit Diagnosis:Atrial fibrillation, unspecified type (HCC) [I48.91] Order(s):INR (POC) [6607002] Order #: [id number] INR (POC) [[id number]] Order #: [id number]. #:[id number] Prescriptions as of 03/14/2024 - warfarin (COUMADIN) 4 mg tablet TAKE 2 TABLETS BY MOUTH ONCE DAILY INSTRUCTED - warfarin (COUMADIN) 5 mg tablet take 1 tablet by mouth every day - Tadalafil (CIALIS) 20 mg tablet Take 1 tablet by mouth once daily as needed. Take 1-2 hours before sexual activity. - ondansetron (ZOFRAN) 8 mg tablet Take 1 tablet by mouth every 8 hours as needed for nausea/vomiting. - dilTIAZem CD (CARDIZEM CD, CARTIA XT) 240 mg 24 hr capsule Take 1 capsule by mouth once daily. - lactobacillus rhamnosus (CULTURELLE) 10 billion cell capsule Take 2 capsules by mouth two times a day for 14 days. - loperamide (IMODIUM) 2 mg cap(s) Take 1 capsule by mouth three times a day as needed for diarrhea for up to 7 days. - metoprolol succinate ER (TOPROL XL) 50 mg 24 hr tablet Take 1 tablet by mouth two times a day. - warfarin (COUMADIN) 2 mg tablet Take 1 tablet by mouth daily as directed. - sildenafil (VIAGRA) 50 mg tablet TAKE 1 TABLET BY MOUTH NEEDED 30 - 60 MINUTES BEFORE SEXUAL INTERCOURSE - omega 0-vrp-vfk-fish oil (FISH OIL) 100-160-1,000 mg cap Take by mouth. - VIT B COMPLEX 100 COMBO NO.2 ORAL Take by mouth. - vitamin D3-vit K1-vit MK4-MK7 50-500-1,500 mcg cap Take by mouth. Problem List As Of Date 03/14/2024 Noted Resolved ENTHESOPATHY OF KNEE [726.6] 10/10/2003 PERS HX MALIG SKIN MELANOMA [Z85.820] 10/17/2003 SURGERY FOLLOW-UP [V67.0] 10/24/2003 A-fib (HCC) [I48.91] 02/26/2022 Elevated prostate specific antigen (PSA) [R97.2*06/18/2022 Preop examination [Z01.818] 04/20/2023 SHANNON (obstructive sleep apnea) [G47.33] 04/20/2023 Elevated BP without diagnosis of hypertension [*04/20/2023 Septic bursitis of elbow, left [M71.122] 04/22/2023 Cellulitis of left upper extremity [L03.114] 04/24/2023 Chest discomfort [R07.89] 04/28/2023 Localized edema [R60.0] 04/28/2023 Dyspnea on exertion [R06.09] 04/28/2023 Rupture of right Achilles tendon [S86.011A] 05/19/2023 Sepsis (HCC) [A41.9] 06/08/2023 09/18/2023 Malignant melanoma of torso excluding breast (H*09/14/2023 Hx of retinal detachment [Z86.69] 12/03/2023 Encounter Status:Closed by DANA DAVIS on 03/14/24 Normal [facility] INR (POC)on 03-14-2024 INR Coag (PPP) [Relative time] 2.2 {INR} High 0.8 - 1.2 [facility] Internal Quality Check Acceptable [facility] Interpretation and review of laboratory results Abnormal [facility] Location:[facility], [address] [place] [address], [address] [place] [address] POINT OF CARE [facility] CNNURSEon 02-29-2024 CNNURSE Nurse Visit (AGINTML W) RU WORKMAN ([id number]) 1955 M Date Time Provider Department 02/29/24 9:20 AM NURSE TARAS KHAN AGINTMLW During your visit today, we recorded the following information about you: Cristine Boykin LPN 02/29/2024 10:35 AM Signed Pt in office for INR check. Pt INR today 02/29/2024 2.6. Last INR 3.8 on 02/22/2024. Last instructions was Hold on 02/22/2024, take warfarin 8 mg Wed, Fri and 6 mg all other days. Please advise OTF Belle Brenda, LPN 02/29/2024 4:54 PM Signed Per Ryan Edwards CNP pt to take 8 mg mon, wed, fri and 6 mg all other days. Recheck INR in 2 weeks (03/14/2024). Left detailed message for pt with the information. Advised to call office with question and to schedule INR. Referring Provider: RYAN EDWARDS [[id number]] Allergies As of Date: 02/29/2024 (No Known Allergies) Date Reviewed: 01/05/2024 Reviewed by: Stan Tai Jr., MD - Fully Assessed Reason for Visit: Coumadin/INR [1207] Primary Visit Diagnosis:Atrial fibrillation, unspecified type (HCC) [I48.91] Order(s):INR (POC) [[id number]] Order #: [id number] Prescriptions as of 02/29/2024 - Tadalafil (CIALIS) 20 mg tablet Take 1 tablet by mouth once daily as needed. Take 1-2 hours before sexual activity. - warfarin (COUMADIN) 5 mg tablet Take 1 tablet by mouth once daily. - ondansetron (ZOFRAN) 8 mg tablet Take 1 tablet by mouth every 8 hours as needed for nausea/vomiting. - dilTIAZem CD (CARDIZEM CD, CARTIA XT) 240 mg 24 hr capsule Take 1 capsule by mouth once daily. - lactobacillus rhamnosus (CULTURELLE) 10 billion cell capsule Take 2 capsules by mouth two times a day for 14 days. - loperamide (IMODIUM) 2 mg cap(s) Take 1 capsule by mouth three times a day as needed for diarrhea for up to 7 days. - metoprolol succinate ER (TOPROL XL) 50 mg 24 hr tablet Take 1 tablet by mouth two times a day. - warfarin (COUMADIN) 2 mg tablet Take 1 tablet by mouth daily as directed. - sildenafil (VIAGRA) 50 mg tablet TAKE 1 TABLET BY MOUTH NEEDED 30 - 60 MINUTES BEFORE SEXUAL INTERCOURSE - warfarin (COUMADIN) 4 mg tablet TAKE 2 TABLETS 1 TIME DAILY INSTRUCTED - omega 2-ngw-kyu-fish oil (FISH OIL) 100-160-1,000 mg cap Take by mouth. - VIT B COMPLEX 100 COMBO NO.2 ORAL Take by mouth. - vitamin D3-vit K1-vit MK4-MK7 50-500-1,500 mcg cap Take by mouth. Problem List As Of Date 02/29/2024 Noted Resolved ENTHESOPATHY OF KNEE [726.6] 10/10/2003 PERS HX MALIG SKIN MELANOMA [Z85.820] 10/17/2003 SURGERY FOLLOW-UP [V67.0] 10/24/2003 A-fib (HCC) [I48.91] 02/26/2022 Elevated prostate specific antigen (PSA) [R97.2*06/18/2022 Preop examination [Z01.818] 04/20/2023 SHANNON (obstructive sleep apnea) [G47.33] 04/20/2023 Elevated BP without diagnosis of hypertension [*04/20/2023 Septic bursitis of elbow, left [M71.122] 04/22/2023 Cellulitis of left upper extremity [L03.114] 04/24/2023 Chest discomfort [R07.89] 04/28/2023 Localized edema [R60.0] 04/28/2023 Dyspnea on exertion [R06.09] 04/28/2023 Rupture of right Achilles tendon [S86.011A] 05/19/2023 Sepsis (HCC) [A41.9] 06/08/2023 09/18/2023 Malignant melanoma of torso excluding breast (H*09/14/2023 Hx of retinal detachment [Z86.69] 12/03/2023 Encounter Status:Closed by CRISTINE BOYKIN on 02/29/24 [facility] CNN[facility]SE Nurse Visit (AGCLIFFORDML W) RU WORKMAN ([id number]) 1955 M Date Time Provider Department 02/22/24 9:20 AM NURSE TARAS DUQUE During your visit today, we recorded the following information about you: Blood pressure 128/70 Cristine Boykin LPN 02/22/2024 9:55 AM Signed Pt's INR today 02/22/2024 was 3.8. Pt has been taking warfarin 8 mg mon, wed, th, sat and 6 mg Tu, Fri, Sun Pt last INR 2.2 on 01/26/2024 BP today was 128/70 Per Ryan Edwards CNP pt to hold warfarin today. Then take warfarin 6 mg , , Thu and 8 mg on Thu. Recheck INR on 02/29/2024 Pt aware and verbalized an understanding. Referring Provider: SELF [[id number]] Allergies As of Date: 02/22/2024 (No Known Allergies) Date Reviewed: 01/05/2024 Reviewed by: Stan Tai Jr., MD - Fully Assessed Reason for Visit: Coumadin/INR [1207] Primary Visit Diagnosis:Atrial fibrillation, unspecified type (HCC) [I48.91] Order(s):INR (POC) [[id number]] Order #: [id number] Prescriptions as of 02/22/2024 - Tadalafil (CIALIS) 20 mg tablet Take 1 tablet by mouth once daily as needed. Take 1-2 hours before sexual activity. - warfarin (COUMADIN) 5 mg tablet Take 1 tablet by mouth once daily. - ondansetron (ZOFRAN) 8 mg tablet Take 1 tablet by mouth every 8 hours as needed for nausea/vomiting. - dilTIAZem CD (CARDIZEM CD, CARTIA XT) 240 mg 24 hr capsule Take 1 capsule by mouth once daily. - lactobacillus rhamnosus (CULTURELLE) 10 billion cell capsule Take 2 capsules by mouth two times a day for 14 days. - loperamide (IMODIUM) 2 mg cap(s) Take 1 capsule by mouth three times a day as needed for diarrhea for up to 7 days. - metoprolol succinate ER (TOPROL XL) 50 mg 24 hr tablet Take 1 tablet by mouth two times a day. - warfarin (COUMADIN) 2 mg tablet Take 1 tablet by mouth daily as directed. - sildenafil (VIAGRA) 50 mg tablet TAKE 1 TABLET BY MOUTH NEEDED 30 - 60 MINUTES BEFORE SEXUAL INTERCOURSE - warfarin (COUMADIN) 4 mg tablet TAKE 2 TABLETS 1 TIME DAILY INSTRUCTED - omega 7-nhu-zdt-fish oil (FISH OIL) 100-160-1,000 mg cap Take by mouth. - VIT B COMPLEX 100 COMBO NO.2 ORAL Take by mouth. - vitamin D3-vit K1-vit MK4-MK7 50-500-1,500 mcg cap Take by mouth. Problem List As Of Date 02/22/2024 Noted Resolved ENTHESOPATHY OF KNEE [726.6] 10/10/2003 PERS HX MALIG SKIN MELANOMA [Z85.820] 10/17/2003 SURGERY FOLLOW-UP [V67.0] 10/24/2003 A-fib (HCC) [I48.91] 02/26/2022 Elevated prostate specific antigen (PSA) [R97.2*06/18/2022 Preop examination [Z01.818] 04/20/2023 SHANNON (obstructive sleep apnea) [G47.33] 04/20/2023 Elevated BP without diagnosis of hypertension [*04/20/2023 Septic bursitis of elbow, left [M71.122] 04/22/2023 Cellulitis of left upper extremity [L03.114] 04/24/2023 Chest discomfort [R07.89] 04/28/2023 Localized edema [R60.0] 04/28/2023 Dyspnea on exertion [R06.09] 04/28/2023 Rupture of right Achilles tendon [S86.011A] 05/19/2023 Sepsis (HCC) [A41.9] 06/08/2023 09/18/2023 Malignant melanoma of torso excluding breast (H*09/14/2023 Hx of retinal detachment [Z86.69] 12/03/2023 Encounter Status:Closed by CRISTINE BOYKIN on 02/22/24 Normal [facility] INR (POC)on 02-22-2024 INR Coag (PPP) [Relative time] 3.8 {INR} High 0.8 - 1.2 [facility] Internal Quality Check Acceptable [facility] Interpretation and review of laboratory results Abnormal [facility] Location:[facility], [address] [place] [address], [address] [facility] POINT OF CARE [facility] CNNURSEon 01-26-2024 CNNURSE Nurse Visit (AGINTML W) RU WORKMAN ([id number]) 1955 M Date Time Provider Department 01/26/24 9:40 AM NURSE TARAS DUQUE During your visit today, we recorded the following information about you: Blood pressure 120/78 Cristine Boykin LPN 01/26/2024 11:05 AM Signed Pt in office for INR check. INR 2.2 today. Pt is taking 8 mg thu, thu, , thu and 6 mg thu, , thu. Last INR on 01/11/2024 was 1.9. Bp today 120/78 Please advise [facility] Belle Charlene M, NON DESTRUCTIVE TESTING ENGINEER.WAFFLE MACHINE OPERATOR 01/26/2024 12:29 PM Signed Continue current dose recheck one month Cristine Boykin LPN 01/26/2024 1:26 PM Signed Left message for pt with the information in this note. Advised to contact office to recheck in 1 month. Also advised if any questions to call office. Cristine Boykin LPN Allergies As of Date: 01/26/2024 (No Known Allergies) Date Reviewed: 01/05/2024 Reviewed by: Stan Tai Jr., MD - Fully Assessed Reason for Visit: Coumadin/INR [1207] Primary Visit Diagnosis:Atrial fibrillation, unspecified type (HCC) [I48.91] Order(s):INR (POC) [[id number]] Order #: [id number] Prescriptions as of 01/26/2024 - Tadalafil (CIALIS) 20 mg tablet Take 1 tablet by mouth once daily as needed. Take 1-2 hours before sexual activity. - warfarin (COUMADIN) 5 mg tablet Take 1 tablet by mouth once daily. - ondansetron (ZOFRAN) 8 mg tablet Take 1 tablet by mouth every 8 hours as needed for nausea/vomiting. - dilTIAZem CD (CARDIZEM CD, CARTIA XT) 240 mg 24 hr capsule Take 1 capsule by mouth once daily. - lactobacillus rhamnosus (CULTURELLE) 10 billion cell capsule Take 2 capsules by mouth two times a day for 14 days. - loperamide (IMODIUM) 2 mg cap(s) Take 1 capsule by mouth three times a day as needed for diarrhea for up to 7 days. - metoprolol succinate ER (TOPROL XL) 50 mg 24 hr tablet Take 1 tablet by mouth two times a day. - warfarin (COUMADIN) 2 mg tablet Take 1 tablet by mouth daily as directed. - sildenafil (VIAGRA) 50 mg tablet TAKE 1 TABLET BY MOUTH NEEDED 30 - 60 MINUTES BEFORE SEXUAL INTERCOURSE - warfarin (COUMADIN) 4 mg tablet TAKE 2 TABLETS 1 TIME DAILY INSTRUCTED - omega 7-vrc-lpa-fish oil (FISH OIL) 100-160-1,000 mg cap Take by mouth. - VIT B COMPLEX 100 COMBO NO.2 ORAL Take by mouth. - vitamin D3-vit K1-vit MK4-MK7 50-500-1,500 mcg cap Take by mouth. Problem List As Of Date 01/26/2024 Noted Resolved ENTHESOPATHY OF KNEE [726.6] 10/10/2003 PERS HX MALIG SKIN MELANOMA [Z85.820] 10/17/2003 SURGERY FOLLOW-UP [V67.0] 10/24/2003 A-fib (HCC) [I48.91] 02/26/2022 Elevated prostate specific antigen (PSA) [R97.2*06/18/2022 Preop examination [Z01.818] 04/20/2023 SHANNON (obstructive sleep apnea) [G47.33] 04/20/2023 Elevated BP without diagnosis of hypertension [*04/20/2023 Septic bursitis of elbow, left [M71.122] 04/22/2023 Cellulitis of left upper extremity [L03.114] 04/24/2023 Chest discomfort [R07.89] 04/28/2023 Localized edema [R60.0] 04/28/2023 Dyspnea on exertion [R06.09] 04/28/2023 Rupture of right Achilles tendon [S86.011A] 05/19/2023 Sepsis (HCC) [A41.9] 06/08/2023 09/18/2023 Malignant melanoma of torso excluding breast (H*09/14/2023 Hx of retinal detachment [Z86.69] 12/03/2023 Encounter Status:Closed by CRISTINE BOYKIN on 01/26/24 [facility] CNNURSEon 01-11-2024 CNNURSE Nurse Visit (DARVINTYRONE [place]) RU WORKMAN ([id number]) 1955 M Date Time Provider Department 01/11/24 8:20 AM NURSE JERI BOSTON BILL DAVISLUIZA During your visit today, we recorded the following information about you: Blood pressure 128/78 Edel Johns MA 01/11/2024 12:06 PM Signed Patient is here to check their INR Last INR: 2.0 Current Dose: 6 Sun, Tues, Fri and 8 all other days When confirming his dose he siad he takes one 3x a week and the other 4 but he wasn't sure which dose he takes 3x. He also admitted to missing 2 doses since last check INR: 1.9 Ryan Edwards, CIERA.WAFFLE MACHINE OPERATOR 01/11/2024 12:06 PM Signed Continue current dose and recheck 2 wks. Encourage to try and not miss doses Edel Johns MA 01/11/2024 3:40 PM Signed Patients is informed Edel Johns MA Referring Provider: SELF [[id number]] Allergies As of Date: 01/11/2024 (No Known Allergies) Date Reviewed: 01/05/2024 Reviewed by: Stan Tai Jr., MD - Fully Assessed Reason for Visit: Coumadin/INR [1207] Primary Visit Diagnosis:Atrial fibrillation, unspecified type (HCC) [I48.91] Order(s):INR (POC) [[id number]] Order #: [id number] INR (POC) [6965930] Order #: [id number]. #:[id number] -LAB Prescriptions as of 01/11/2024 - Tadalafil (CIALIS) 20 mg tablet Take 1 tablet by mouth once daily as needed. Take 1-2 hours before sexual activity. - warfarin (COUMADIN) 5 mg tablet Take 1 tablet by mouth once daily. - ondansetron (ZOFRAN) 8 mg tablet Take 1 tablet by mouth every 8 hours as needed for nausea/vomiting. - dilTIAZem CD (CARDIZEM CD, CARTIA XT) 240 mg 24 hr capsule Take 1 capsule by mouth once daily. - lactobacillus rhamnosus (CULTURELLE) 10 billion cell capsule Take 2 capsules by mouth two times a day for 14 days. - loperamide (IMODIUM) 2 mg cap(s) Take 1 capsule by mouth three times a day as needed for diarrhea for up to 7 days. - metoprolol succinate ER (TOPROL XL) 50 mg 24 hr tablet Take 1 tablet by mouth two times a day. - warfarin (COUMADIN) 2 mg tablet Take 1 tablet by mouth daily as directed. - sildenafil (VIAGRA) 50 mg tablet TAKE 1 TABLET BY MOUTH NEEDED 30 - 60 MINUTES BEFORE SEXUAL INTERCOURSE - warfarin (COUMADIN) 4 mg tablet TAKE 2 TABLETS 1 TIME DAILY INSTRUCTED - omega 6-vsl-vms-fish oil (FISH OIL) 100-160-1,000 mg cap Take by mouth. - VIT B COMPLEX 100 COMBO NO.2 ORAL Take by mouth. - vitamin D3-vit K1-vit MK4-MK7 50-500-1,500 mcg cap Take by mouth. Problem List As Of Date 01/11/2024 Noted Resolved ENTHESOPATHY OF KNEE [726.6] 10/10/2003 PERS HX MALIG SKIN MELANOMA [Z85.820] 10/17/2003 SURGERY FOLLOW-UP [V67.0] 10/24/2003 A-fib (HCC) [I48.91] 02/26/2022 Elevated prostate specific antigen (PSA) [R97.2*06/18/2022 Preop examination [Z01.818] 04/20/2023 SHANNON (obstructive sleep apnea) [G47.33] 04/20/2023 Elevated BP without diagnosis of hypertension [*04/20/2023 Septic bursitis of elbow, left [M71.122] 04/22/2023 Cellulitis of left upper extremity [L03.114] 04/24/2023 Chest discomfort [R07.89] 04/28/2023 Localized edema [R60.0] 04/28/2023 Dyspnea on exertion [R06.09] 04/28/2023 Rupture of right Achilles tendon [S86.011A] 05/19/2023 Sepsis (HCC) [A41.9] 06/08/2023 09/18/2023 Malignant melanoma of torso excluding breast (H*09/14/2023 Hx of retinal detachment [Z86.69] 12/03/2023 Encounter Status:Closed by RYAN EDWARDS on 01/11/24 Normal [facility] INR (POC)on 01-11-2024 INR Coag (PPP) [Relative time] 1.9 {INR} High 0.8 - 1.2 [facility] Internal Quality Check Acceptable [facility] Interpretation and review of laboratory results Abnormal [facility] Location:[facility], [address] [place] [address], [address] [place] [address] POINT OF CARE [facility] CNPNon 01-06-2024 CNPN Telephone (AKURFL) RU WORKMAN ([id number]) 1955 Date Time Provider Department 01/06/24 STAN TAI JR During your visit today, we recorded the following information about you: Betty Hightower MA 01/06/2024 9:23 AM Signed Stan Tai Jr., MD [facility] Clinical Pool Psa is 10.8 Called patient and left message that their test results are viewable on [employer], if they have any questions to call the office. Betty Hightower MA Allergies As of Date: 01/06/2024 (No Known Allergies) Date Reviewed: 01/05/2024 Reviewed by: Stan aTi Jr., MD - Fully Assessed Reason for Visit: Results [95] Prescriptions as of 01/06/2024 - Tadalafil (CIALIS) 20 mg tablet Take 1 tablet by mouth once daily as needed. Take 1-2 hours before sexual activity. - warfarin (COUMADIN) 5 mg tablet Take 1 tablet by mouth once daily. - ondansetron (ZOFRAN) 8 mg tablet Take 1 tablet by mouth every 8 hours as needed for nausea/vomiting. - dilTIAZem CD (CARDIZEM CD, CARTIA XT) 240 mg 24 hr capsule Take 1 capsule by mouth once daily. - lactobacillus rhamnosus (CULTURELLE) 10 billion cell capsule Take 2 capsules by mouth two times a day for 14 days. - loperamide (IMODIUM) 2 mg cap(s) Take 1 capsule by mouth three times a day as needed for diarrhea for up to 7 days. - metoprolol succinate ER (TOPROL XL) 50 mg 24 hr tablet Take 1 tablet by mouth two times a day. - warfarin (COUMADIN) 2 mg tablet Take 1 tablet by mouth daily as directed. - sildenafil (VIAGRA) 50 mg tablet TAKE 1 TABLET BY MOUTH NEEDED 30 - 60 MINUTES BEFORE SEXUAL INTERCOURSE - warfarin (COUMADIN) 4 mg tablet TAKE 2 TABLETS 1 TIME DAILY INSTRUCTED - omega 0-qex-wtr-fish oil (FISH OIL) 100-160-1,000 mg cap Take by mouth. - VIT B COMPLEX 100 COMBO NO.2 ORAL Take by mouth. - vitamin D3-vit K1-vit MK4-MK7 50-500-1,500 mcg cap Take by mouth. Problem List As Of Date 01/06/2024 Noted Resolved ENTHESOPATHY OF KNEE [726.6] 10/10/2003 PERS HX MALIG SKIN MELANOMA [Z85.820] 10/17/2003 SURGERY FOLLOW-UP [V67.0] 10/24/2003 A-fib (HCC) [I48.91] 02/26/2022 Elevated prostate specific antigen (PSA) [R97.2*06/18/2022 Preop examination [Z01.818] 04/20/2023 SHANNON (obstructive sleep apnea) [G47.33] 04/20/2023 Elevated BP without diagnosis of hypertension [*04/20/2023 Septic bursitis of elbow, left [M71.122] 04/22/2023 Cellulitis of left upper extremity [L03.114] 04/24/2023 Chest discomfort [R07.89] 04/28/2023 Localized edema [R60.0] 04/28/2023 Dyspnea on exertion [R06.09] 04/28/2023 Rupture of right Achilles tendon [S86.011A] 05/19/2023 Sepsis (HCC) [A41.9] 06/08/2023 09/18/2023 Malignant melanoma of torso excluding breast (H*09/14/2023 Hx of retinal detachment [Z86.69] 12/03/2023 Encounter Status:Closed by BETTY HIGHTOWER on 01/06/24 [facility] CNOVon 01-05-2024 CNOV Office Visit (UROLMD ) RU WORKMAN ([id number]) 1955 M Date Time Provider Department 01/05/24 9:15 AM STAN TAI JR During your visit today, we recorded the following information about you: Weight Height 104.3 kg 1.829 m Stan Tai Jr., MD 01/05/2024 9:30 AM Signed ESTABLISHED PATIENT OFFICE VISIT HPI Ru Workman is a 68 year old male who presents recently moved from [place]. Ho elevated psa. Bx in 2013 neg [...] uti. Discussed finasteride. Interested. No recent psa. 01/05/24 - doing well since last seen. Currently on no prostate meds. Luts ok. Discussed next steps including cysto/trus. Briefly discussed procedures. Will think about it. Viagra not working that well anymore for ED. Interested in cialis trial. Psa one year ago was 8.8. LAB: Creatinine Date Value Ref Range Status 04/30/2023 1.12 0.73 - 1.22 mg/dL Final PSA (ng/mL) Date Value 12/30/2022 8.81 Glucose, Urine (no units) Date Value 04/24/2023 Negative Bilirubin, Urine (no units) Date Value 04/24/2023 Negative Ketones, Urine (no units) Date Value 04/24/2023 Negative Specific [place], Ur (no units) Date Value 04/24/2023 1.021 Hemoglobin/Blood,Ur (no units) Date Value 04/24/2023 1+ pH, Urine (no units) Date Value 04/24/2023 5.5 Protein, Urine (no units) Date Value 04/24/2023 Trace Nitrites (no units) Date Value 04/24/2023 Negative WBC, Urine (no units) Date Value 04/24/2023 0-5 /HPF MEDICATIONS: warfarin (COUMADIN) 2 mg tablet Take 1 tablet by mouth daily as directed. sildenafil (VIAGRA) 50 mg tablet TAKE 1 TABLET BY MOUTH NEEDED 30 - 60 MINUTES BEFORE SEXUAL INTERCOURSE warfarin (COUMADIN) 4 mg tablet TAKE 2 TABLETS 1 TIME DAILY INSTRUCTED VIT B COMPLEX 100 COMBO NO.2 ORAL Take by mouth. vitamin D3-vit K1-vit MK4-MK7 50-500-1,500 mcg cap Take by mouth. Tadalafil (CIALIS) 20 mg tablet Take 1 tablet by mouth once daily as needed. Take 1-2 hours before sexual activity. warfarin (COUMADIN) 5 mg tablet Take 1 tablet by mouth once daily. ondansetron (ZOFRAN) 8 mg tablet Take 1 tablet by mouth every 8 hours as needed for nausea/vomiting. (Patient not taking: Reported on 10/30/2023) dilTIAZem CD (CARDIZEM CD, CARTIA XT) 240 mg 24 hr capsule Take 1 capsule by mouth once daily. lactobacillus rhamnosus (CULTURELLE) 10 billion cell capsule Take 2 capsules by mouth two times a day for 14 days. loperamide (IMODIUM) 2 mg cap(s) Take 1 capsule by mouth three times a day as needed for diarrhea for up to 7 days. (Patient not taking: Reported on 10/30/2023) metoprolol succinate ER (TOPROL XL) 50 mg 24 hr tablet Take 1 tablet by mouth two times a day. (Patient not taking: Reported on 10/30/2023) omega 7-yzs-xyg-fish oil (FISH OIL) 100-160-1,000 mg cap Take by mouth. (Patient not taking: Reported on 10/30/2023) REVIEW OF SYSTEMS Review of Systems Constitutional: Negative. Respiratory: Negative. Cardiovascular: Negative. Gastrointestinal: Negative. Genitourinary: Negative. Skin: Negative. Neurological: Negative. Psychiatric/Behavioral: Negative. HISTORIES PAST MEDICAL HISTORY No date: A-fib (HCC) No date: BPH with obstruction/lower urinary tract symptoms No date: SHANNON (obstructive sleep apnea) No date: Personal history of malignant melanoma of skin No date: Rupture of right Achilles tendon No date: Septic bursitis of elbow FAMILY HISTORY Problem Relation Age of Onset Diabetes Father Heart disease Father Accidental Mother fire Hypertension Sister No Ocular Disease Other SOCIAL HISTORY Social History Tobacco Use Smoking status: Never Passive exposure: Never Smokeless tobacco: Never Vaping Use Vaping status: Never Used Substance Use Topics Alcohol use: Yes Comment: couple times a week Drug use: Never PHYSICAL EXAMINATION General appearance: Well appearing, alert, in no acute distress, and well-hydrated, well nourished Skin: Skin color, texture, turgor normal, no suspicious rashes or lesions Respiratory:+ effort Cardiovascular: Not examined GI: Normal abdominal exam, Abdomen soft, non-tender. No masses, organomegaly Musculoskeletal: Negative Neuro: Negative Genitourinary: not examined Impression: (N40.1, N13.8) BPH with obstruction/lower urinary tract symptoms (primary encounter diagnosis) (R97.20) Elevated prostate specific antigen (PSA) (N52.9) Erectile dysfunction of organic origin Plan: Will call if would like to proceed with cysto/trus Psa now Trial cialis Set (more content not included)... Normal [facility] PSA SerPl-mCncon 01-05-2024 Prostate specific Ag [Mass/Vol] 10.80 ng/mL High <2.60 [facility] Comment on above: Order Comment: Speci men Type: BLOOD SPECIMEN Ordering Facility: [facility] Address: [address] [place] [address] Result Comment: Tota olga PSA test methodology used is the Electrochemiluminescence Immunoassay by [employer]. Total PSA values by differing methodologies cannot be interchanged. For an individual patient, the significance of a PSA level should be interpreted in a broad clinical context, including age, race, family history, digital rectal exam, prostate size, results of prior testing (prostate biopsy, free PSA, PCA3), and use of 5-alpha reductase inhibitors. Considering the high incidence of asymptomatic cancer in the general population that may not pose an ultimate risk to a patient, the decision to recommend urological evaluation or prostate biopsy should be individualized after consideration of all these factors. REFERENCE: Cody Sol M.D., M.P.H., Demarcus Adam M.D., Ph.D., Shan Rice M.D., Thu Rodriguez, M.P.H., Enio Infante, [place], Sc.D. Effect of Verification Bias on Screening for Prostate Cancer by Measurement of Prostatic Specific Antigen. N Engl J Med 2003,349:335-42. Performed By: #### [id number] #### [facility] CLIA [id number] [address] [place] [address] CNNURSEon 12-09-2023 CNNURSE Nurse Visit (AGINTML W) RU WORKMAN ([id number]) 1955 M Date Time Provider Department 12/09/23 9:20 AM NURSE INTM DARVIN KHAN AGINTMLW During your visit today, we recorded the following information about you: Libby Barkley MA 12/09/2023 8:43 AM Signed Pt here for his INR pts Previous INR 1.9 Pts current dose 6 mg Sun,Tues,Fri 8 mg the rest of the week Pts INR today 2.0 Instructed pt to continue current dose and recheck in 1 month Libby Barkley MA Referring Provider: RYAN EDWARDS [[id number]] Allergies As of Date: 12/09/2023 (No Known Allergies) Date Reviewed: 12/03/2023 Reviewed by: Ileana Quiroz MD, PhD - Fully Assessed Primary Visit Diagnosis:Atrial fibrillation, unspecified type (HCC) [I48.91] Order(s):INR (POC) [[id number]] Order #: [id number] Prescriptions as of 12/09/2023 - warfarin (COUMADIN) 5 mg tablet Take 1 tablet by mouth once daily. - ondansetron (ZOFRAN) 8 mg tablet Take 1 tablet by mouth every 8 hours as needed for nausea/vomiting. - dilTIAZem CD (CARDIZEM CD, CARTIA XT) 240 mg 24 hr capsule Take 1 capsule by mouth once daily. - lactobacillus rhamnosus (CULTURELLE) 10 billion cell capsule Take 2 capsules by mouth two times a day for 14 days. - loperamide (IMODIUM) 2 mg cap(s) Take 1 capsule by mouth three times a day as needed for diarrhea for up to 7 days. - metoprolol succinate ER (TOPROL XL) 50 mg 24 hr tablet Take 1 tablet by mouth two times a day. - warfarin (COUMADIN) 2 mg tablet Take 1 tablet by mouth daily as directed. - sildenafil (VIAGRA) 50 mg tablet TAKE 1 TABLET BY MOUTH NEEDED 30 - 60 MINUTES BEFORE SEXUAL INTERCOURSE - warfarin (COUMADIN) 4 mg tablet TAKE 2 TABLETS 1 TIME DAILY INSTRUCTED - omega 0-oqf-rdp-fish oil (FISH OIL) 100-160-1,000 mg cap Take by mouth. - VIT B COMPLEX 100 COMBO NO.2 ORAL Take by mouth. - vitamin D3-vit K1-vit MK4-MK7 50-500-1,500 mcg cap Take by mouth. Problem List As Of Date 12/09/2023 Noted Resolved ENTHESOPATHY OF KNEE [726.6] 10/10/2003 PERS HX MALIG SKIN MELANOMA [Z85.820] 10/17/2003 SURGERY FOLLOW-UP [V67.0] 10/24/2003 A-fib (HCC) [I48.91] 02/26/2022 Elevated prostate specific antigen (PSA) [R97.2*06/18/2022 Preop examination [Z01.818] 04/20/2023 SHANNON (obstructive sleep apnea) [G47.33] 04/20/2023 Elevated BP without diagnosis of hypertension [*04/20/2023 Septic bursitis of elbow, left [M71.122] 04/22/2023 Cellulitis of left upper extremity [L03.114] 04/24/2023 Chest discomfort [R07.89] 04/28/2023 Localized edema [R60.0] 04/28/2023 Dyspnea on exertion [R06.09] 04/28/2023 Rupture of right Achilles tendon [S86.011A] 05/19/2023 Sepsis (HCC) [A41.9] 06/08/2023 09/18/2023 Malignant melanoma of torso excluding breast (H*09/14/2023 Hx of retinal detachment [Z86.69] 12/03/2023 Encounter Status:Closed by LIBBY BARKLEY on 12[facility]09[facility] (AGINTML W) RU WORKMAN ([id number]) 1955 M Date Time Provider Department 11/18/23 9:20 AM NURSE TARAS KHAN AGINTMLW During your visit today, we recorded the following information about you: Libby Barkley MA 11/18/2023 10:47 AM Signed Pt here for his INR pts Previous INR 2.0 Pts current dose 8 mg Thu,,Thu 6 mg the rest of the week Pts INR today 1.9 Per CN pt to take 6 mg Thu,,Thu 8 mg the rest of the week Libby Barkley MA Referring Provider: RYAN EDWARDS [[id number]] Allergies As of Date: 11/18/2023 (No Known Allergies) Date Reviewed: 09/26/2023 Reviewed by: Pancho Pino MD - Fully Assessed Primary Visit Diagnosis:Atrial fibrillation, unspecified type (HCC) [I48.91] Order(s):INR (POC) [[id number]] Order #: [id number] Prescriptions as of 11/18/2023 - warfarin (COUMADIN) 5 mg tablet Take 1 tablet by mouth once daily. - ondansetron (ZOFRAN) 8 mg tablet Take 1 tablet by mouth every 8 hours as needed for nausea/vomiting. - dilTIAZem CD (CARDIZEM CD, CARTIA XT) 240 mg 24 hr capsule Take 1 capsule by mouth once daily. - lactobacillus rhamnosus (CULTURELLE) 10 billion cell capsule Take 2 capsules by mouth two times a day for 14 days. - loperamide (IMODIUM) 2 mg cap(s) Take 1 capsule by mouth three times a day as needed for diarrhea for up to 7 days. - metoprolol succinate ER (TOPROL XL) 50 mg 24 hr tablet Take 1 tablet by mouth two times a day. - warfarin (COUMADIN) 2 mg tablet Take 1 tablet by mouth daily as directed. - sildenafil (VIAGRA) 50 mg tablet TAKE 1 TABLET BY MOUTH NEEDED 30 - 60 MINUTES BEFORE SEXUAL INTERCOURSE - warfarin (COUMADIN) 4 mg tablet TAKE 2 TABLETS 1 TIME DAILY INSTRUCTED - omega 7-omy-qyv-fish oil (FISH OIL) 100-160-1,000 mg cap Take by mouth. - VIT B COMPLEX 100 COMBO NO.2 ORAL Take by mouth. - vitamin D3-vit K1-vit MK4-MK7 50-500-1,500 mcg cap Take by mouth. Problem List As Of Date 11/18/2023 Noted Resolved ENTHESOPATHY OF KNEE [726.6] 10/10/2003 PERS HX MALIG SKIN MELANOMA [Z85.820] 10/17/2003 SURGERY FOLLOW-UP [V67.0] 10/24/2003 A-fib (HCC) [I48.91] 02/26/2022 Elevated prostate specific antigen (PSA) [R97.2*06/18/2022 Preop examination [Z01.818] 04/20/2023 SHANNON (obstructive sleep apnea) [G47.33] 04/20/2023 Elevated BP without diagnosis of hypertension [*04/20/2023 Septic bursitis of elbow, left [M71.122] 04/22/2023 Cellulitis of left upper extremity [L03.114] 04/24/2023 Chest discomfort [R07.89] 04/28/2023 Localized edema [R60.0] 04/28/2023 Dyspnea on exertion [R06.09] 04/28/2023 Rupture of right Achilles tendon [S86.011A] 05/19/2023 Sepsis (HCC) [A41.9] 06/08/2023 09/18/2023 Malignant melanoma of torso excluding breast (H*09/14/2023 Encounter Status:Closed by LIBBY BARKLEY on 11/18/23 Normal [facility] Medium Joint Arthro/Inj: R r adiocarpalon 09-25-2023 Pancho Pino MD 09/26/2023 8:45 PM Medium Joint Arthro/Inj: R radiocarpal Informed Consent Consent Obtained: Verbal Murray Protocol A moment to CARE was completed. SIGN IN Personnel directly involved with the procedure wore the appropriate PPE. Patient/Surrogate Stated/Verified: Patient name, Date of , Relevant allergies and Intended procedure TIME OUT Intended patient and procedure match the source document(s). Relevant labs, photos, and/or imaging studies have been reviewed. Correct side/site marked and visible. Medications required for procedure verified. 09/25/2023 9:21 AM The procedure site was prepped in the usual sterile fashion. Medications: 12 mg betamethasone acetate-betamethasone sodium phosphate 6 mg/mL Anesthetics: 1 mL lidocaine (PF) 10 mg/mL (1 %) Outcome: tolerated well, no immediate complications Post-injection instructions were reviewed with the patient and the patient voiced understanding of these instructions. SIGN OUT All instruments, equipment, possible retained foreign bodies accounted for. Post-procedure follow-up management communicated and Plan of Care Visit completed when applicable [facility] XR Wrist - right PA and Late ral and Obliqueon 09-24-2023 IMPRESSION: Abnormal widening of the intercarpal joint between the navicular and lunate bone. On the lateral view, suggestion of malalignment between the radius and lunate bone without dislocation. Train Announcer: PSCB Transcribe Date/Time: Sep 24 2023 3:34P Dictated by : SATINDER ARREOLA MD This examination was interpreted and the report reviewed and electronically signed by: SATINDER ARREOLA MD on Sep 24 2023 3:38PM [facility] * * *Final Report* * * DATE OF EXAM: Sep 24 2023 2:01PM LDX [id number] - XR WRIST 3V PA/LAT/OBL RT / PROCEDURE REASON: Ganglion cyst of wrist, right * * * * Physician Interpretation * * * * XR WRIST 3V PA/LAT/OBL RT HISTORY: 68 years old Clinical information: Ganglion cyst of wrist, right . TECHNIQUE: Images: XR WRIST 3V PA/LAT/OBL RT Comparison: None. RESULT: Abnormal widening of the intercarpal joint between the navicular and lunate bone. On the lateral view, suggestion of malalignment between the radius and lunate bone without dislocation. No fractures, bone destruction or dislocations are seen. Arterial calcifications. Degenerative changes first MCP joint [facility] Provider, [facility] - 09/24/2023 * * *Final Report* * * DATE OF EXAM: Sep 24 2023 2:01PM LDX 5271 - XR WRIST 3V PA/LAT/OBL RT / PROCEDURE REASON: Ganglion cyst of wrist, right * * * * Physician Interpretation * * * * XR WRIST 3V PA/LAT/OBL RT HISTORY: 68 years old Clinical information: Ganglion cyst of wrist, right . TECHNIQUE: Images: XR WRIST 3V PA/LAT/OBL RT Comparison: None. RESULT: Abnormal widening of the intercarpal joint between the navicular and lunate bone. On the lateral view, suggestion of malalignment between the radius and lunate bone without dislocation. No fractures, bone destruction or dislocations are seen. Arterial calcifications. Degenerative changes first MCP joint IMPRESSION IMPRESSION: Abnormal widening of the intercarpal joint between the navicular and lunate bone. On the lateral view, suggestion of malalignment between the radius and lunate bone without dislocation. Train Announcer: PSCB Transcribe Date/Time: Sep 24 2023 3:34P Dictated by : SATINDER ARREOLA MD This examination was interpreted and the report reviewed and electronically signed by: SATINDER ARREOLA MD on Sep 24 2023 3:38PM [facility] Radiology Study observation (narrative) [facility] XR Wrist - right PA and Late ral and ObliqueOrdered By: Ccf Provider on 09-24-2023 [facility] INR (POC)on 09-14-2023 INR Coag (PPP) [Relative time] 1.8 {INR} High 0.8 - 1.2 [facility] Internal Quality Check Acceptable [facility] Interpretation and review of laboratory results Abnormal [facility] Location:[facility], [address] [place] [address], [address] [place] [address] POINT OF CARE [facility] INR (POC)on 08-10-2023 INR Coag (PPP) [Relative time] 2.1 {INR} High 0.8 - 1.2 [facility] Internal Quality Check Acceptable [facility] INR (POC)on 07-30-2023 INR Coag (PPP) [Relative time] 1.5 {INR} High 0.8 - 1.2 [facility] Internal Quality Check Acceptable [facility] INR (POC)on 07-23-2023 INR Coag (PPP) [Relative time] 1.5 {INR} High 0.8 - 1.2 [facility] Internal Quality Check Acceptable [facility] INR (POC)on 06-29-2023 INR Coag (PPP) [Relative time] 3.8 {INR} High 0.8 - 1.2 [facility] Internal Quality Check Acceptable [facility] Absolute lymphocyte countOrd ered By: Venus Berry on 06-05-2023 Lymphocytes Auto (Unsp spec) [#/Vol] 2.33 10*3/uL 0.83-4.51 [facility] Automated lymphocyte count a s percentage of total leukocytesOrdered By: Venus Berry on 06-05-2023 Lymphocytes/100 WBC Auto (Unsp spec) 23.3 % 19-41 [facility] Basophil percentageOrdered B y: Venus Berry on 06-05-2023 Basophils/100 WBC (Bld) 0.7 % 0-1 [facility] Chloride [Moles/Vol] 112 mmol/L 98-107 [facility] Eosinophils/100 WBC (Bld) 0.6 % 0-5 [facility] Glucose [Mass/Vol] 111 mg/dL 74-106 [facility] Comment on above: Fasting Glucose resu lt from 100 to 125 mg/dL suggests IMPAIRED HOMEOSTASIS per A.D.A. criteria. Hemoglobin (Bld) [Mass/Vol] 12.0 g/dL 13.0-16.5 [facility] Monocytes/100 WBC (Bld) 9.8 % 0-10 [facility] Neutrophils (Bld) [#/Vol] 6.5 10*3/uL 2.0-7.7 [facility] Neutrophils/100 WBC (Bld) 65.1 % 47-70 [facility] Potassium [Moles/Vol] 3.7 mmol/L 3.5-5.1 [facility] Sodium [Moles/Vol] 144 mmol/L 136-145 [facility] WBC (Bld) [#/Vol] 10.0 10*3/uL 4.4-11.0 [facility] Determination of erythrocyte mean corpuscular volume (MCV)Ordered By: Venus Berry on 06-05-2023 MCV (RBC) [Entitic vol] 88.5 fL 80-94 [facility] Erythrocyte distribution wid th ratioOrdered By: Venus Berry on 06-05-2023 Erythrocyte distribution width (RBC) [Ratio] 14.5 % 11.6-14.6 [facility] Erythrocyte distribution wid th standard deviationOrdered By: Venus Berry on 06-05-2023 Erythrocyte distribution width (RBC) [Entitic vol] 46.9 fL 35.1-43.9 [facility] Hematocrit Auto (Bld) [Volum e fraction]Ordered By: Venus Berry on 06-05-2023 Hematocrit (Bld) [Volume fraction] 37.6 % 40-54 [facility] Immature granulocytes/100 WB C Auto (Bld)Ordered By: Venus Berry on 06-05-2023 Immature granulocytes/100 WBC (Bld) 0.500 % 0.0-0.9 [facility] Comment on above: IG% - Immature Granu locytes (promyelocytes, myelocytes and metamyelocytes) > 1% indicates that a LEFT SHIFT is Present. Laboratory - Chemistry and C hemistry - challengeOrdered By: Venus Berry on 06-05-2023 CO2 [Moles/Vol] 24.0 mmol/L 21.0-32.0 [facility] Natriuretic peptide B (Bld) [Mass/Vol] 106.0 pg/mL 0-100 [facility] Urea nitrogen/Creatinine [Mass ratio] 12.4 mg/mg 10-20 [facility] Laboratory - Hematology and Cell countsOrdered By: Venus Berry on 06-05-2023 MCH (RBC) [Entitic mass] 28.2 pg 27.0-32.0 [facility] MCHC (RBC) [Mass/Vol] 31.9 g/dL 32-36 [facility] Nucleated RBC/100 WBC (Bld) [Ratio] 0 % 0-5 [facility] Platelets (Bld) [#/Vol] 325 10*3/uL 150-450 [facility] No Panel InformationOrdered By: Venus Berry on 06-05-2023 Estimated GFR (MDRD) Amer 77 mL/min >60 [facility] Comment on above: GFR Calc Estimated GFR (MDRD) Non-Af Amer 63 mL/min >60 [facility] Comment on above: Non- GFR Calc Platelet mean volume Rodrigue-Ec ker (Bld) [Entitic vol]Ordered By: Venus Berry on 06-05-2023 Platelet mean volume (Bld) [Entitic vol] 10.0 fL 6.2-12.0 [facility] RBC Auto (Bld) [#/Vol]Ordere d By: Venus Berry on 06-05-2023 RBC (Bld) [#/Vol] 4.25 10*6/uL 4.6-6.2 [facility] Serum or plasma calcium marcellus urement (mass/volume)Ordered By: Venus Berry on 06-05-2023 Calcium [Mass/Vol] 10.3 mg/dL 8.5-10.1 [facility] Serum or plasma creatinine m easurement (mass/volume)Ordered By: Venus Berry on 06-05-2023 Creatinine [Mass/Vol] 1.21 mg/dL 0.70-1.30 [facility] Comment on above: The validity of the calculated GFR & GFRAA in patients over 70 years has not been determined. Clinical correlation is essential. Serum or plasma thyroid stim ulating hormone (TSH) measurement (units/volume)Ordered By: Venus Berry on 06-05-2023 TSH Qn 2.49 uIU/mL 0.358-3.74 [facility] Serum or plasma urea nitroge n measurement (mass/volume)Ordered By: Venus Berry on 06-05-2023 Urea nitrogen [Mass/Vol] 15 mg/dL 7-18 [facility] Thin prep Papanicolaou smear with manual screeningOrdered By: Venus Berry on 06-05-2023 Thin prep Papanicolaou smear with manual screening 8 5-15 [facility] INR (POC)on 05-07-2023 INR Coag (PPP) [Relative time] 1.6 {INR} High 0.8 - 1.2 [facility] Internal Quality Check Acceptable [facility] No Panel Informationon 04-02 [facility] INR (POC)on 03-11-2023 INR Coag (PPP) [Relative time] 2.7 {INR} High 0.8 - 1.2 [facility] Internal Quality Check Acceptable [facility] INR (POC)on 03-02-2023 INR Coag (PPP) [Relative time] 2.2 {INR} High 0.8 - 1.2 [facility] Internal Quality Check Acceptable [facility] CBC panel Auto (Bld)on 02-10 Erythrocyte distribution width (RBC) [Ratio] 13.3 % 11.5 - 15.0 % [facility] Hematocrit (Bld) [Volume fraction] 42.8 % 39.0 - 51.0 % [facility] Hemoglobin (Bld) [Mass/Vol] 13.8 g/dL 13.0 - 17.0 g/dL [facility] MCH (RBC) [Entitic mass] 30.8 pg 26.0 - 34.0 pg [facility] MCHC (RBC) [Mass/Vol] 32.2 g/dL 30.5 - 36.0 g/dL [facility] MCV (RBC) [Entitic vol] 95.5 fL 80.0 - 100.0 fL [facility] Platelet mean volume (Bld) [Entitic vol] 10.4 fL 9.0 - 12.7 fL [facility] Platelets (Bld) [#/Vol] 214 10*3/uL 150 - 400 k/uL [facility] RBC (Bld) [#/Vol] 4.48 10*6/uL 4.20 - 6.0 0 m/uL [facility] WBC (Bld) [#/Vol] 10.75 10*3/uL 3.70 - 11.00 k/uL [facility] INR (POC)on 02-10-2023 INR Coag (PPP) [Relative time] 2.6 {INR} High 0.8 - 1.2 [facility] Internal Quality Check Acceptable [facility] URIC ACID BLOODon 02-10-2023 Urate [Mass/Vol] 5.1 mg/dL 4.0 - 8.1 mg/dL [facility] XR ANKLE 2V AP/LAT RIGHTon 0 02-10-2023 [facility] INR (POC)on 01-26-2023 INR Coag (PPP) [Relative time] 2.5 {INR} High 0.8 - 1.2 [facility] Internal Quality Check Acceptable [facility] INR (POC)on 12-29-2022 INR Coag (PPP) [Relative time] 2.1 {INR} High 0.8 - 1.2 [facility] Internal Quality Check Acceptable [facility] INR (POC)on 12-15-2022 INR Coag (PPP) [Relative time] 1.9 {INR} High 0.8 - 1.2 [facility] Internal Quality Check Acceptable [facility] INR (POC)on 12-08-2022 INR Coag (PPP) [Relative time] 1.8 {INR} High 0.8 - 1.2 [facility] Internal Quality Check Acceptable [facility] Laboratory - Coagulationon 0 11-05-2022 INR Coag (PPP) [Relative time] 2.5 {INR} 2.0 - 3.0 [facility] INR (POC)on 09-23-2022 INR Coag (PPP) [Relative time] 2.1 {INR} High 0.8 - 1.2 [facility] Internal Quality Check Acceptable [facility] Echo Completeon 09-19-2022 Echo Complete [facility] [address] [place] [address] Echo Complete 09/19/22 1002 MR#: [id number] Acct: [id number] Name: RU WORKMAN Rep #: [id number] : 1955 67 From: Enid Sparrow MD Attending Dr: Dr. Enid Sparrow MD Status: REG CLI Ordering Dr: Enid Sparrow MD Date: 09/19/22 Location: [facility] Sex: M C Admitted: Reason For Study: Afib, Aflutter Procedure This was a 2D Doppler, Color Flow transthoracic echocardiogram. Exam performed in department. Left Ventricle Mild concentric left ventricular hypertrophy. The left ventricular ejection fraction is 65 %. Diastolic function is indeterminate. Right Ventricle Normal right ventricle. Atria The left atrium is severely enlarged. Normal right atrium. Bubble contrast study is negative for PFO/ASD. Mitral Valve Mild-Moderate (1-2+) mitral valve insufficiency. Tricuspid Valve Mild (1+) tricuspid valve insufficiency. Normal pulmonary artery pressure. Aortic Valve Trisinus/trileaflet aortic valve. Trivial aortic valve insufficiency. Pulmonic Valve Mild-Moderate (1-2+) pulmonic valve insufficiency. Great Vessels Normal sized aortic root. Pericardium/Pleural No pericardial effusion. Medication Performed a rapid injection of agitated mix of 9 cc saline and 1cc air to assess for atrial septal defect. MMode/2D Measurements Calculations LVIDd: 5.9 cm IVSd: 1.3 cm Ao root diam: 3.6 cm LVIDs: 3.2 cm LVPWd: 1.4 cm RVDd: 3.0 cm FS: 45.5 % LAV(MOD-bp): 72.7 ml LVAd ap4: 32.0 cm2 SV(MOD-sp4): 60.4 ml LAV(MOD-bp) Indexed: 32.5 ml/m2 LVLd ap4: 8.1 cm LAV(MOD-sp2): 64.7 ml EDV(MOD-sp4): 101.3 ml LAV(MOD-sp4): 80.7 ml EDV(sp4-el): 107.7 ml LVAs ap4: 19.0 cm2 LVLs ap4: 7.4 cm ESV(MOD-sp4): 40.8 ml ESV(sp4-el): 41.5 ml EF(MOD-sp4): 59.7 % EF(sp4-el): 61.4 % SV(sp4-el): 66.2 ml LA A4 area: 25.7 cm2 LA dimension(2D): 5.1 cm RA A4 area: 14.5 cm2 TAPSE_phl: 2.6 cm Time Measurements MV dec time: 0.25 sec Doppler Measurements Calculations MV E max daniel: 76.2 cm/sec Lat Peak E' Daniel: 5.2 cm/sec Med Peak E' Daniel: 6.1 cm/sec MV A max daniel: 67.0 cm/sec E/E' lat: 14.8 E/E' med: 12.5 MV E/A: 1.1 MV dec slope: 308.0 cm/sec2 Ao V2 max: 112.5 cm/sec LV V1 max: 86.2 cm/sec Ao max P.1 mmHg LV V1 max P.0 mmHg Ao V2 mean: 78.1 cm/sec Ao mean P.8 mmHg Ao V2 VTI: 26.4 cm PA V2 max: 69.3 cm/sec PI end-d daniel: 79.1 cm/sec TR max daniel: 231.4 cm/sec TR max P.4 mmHg ECHO/Echo Complete Interpretation Summary Mild concentric left ventricular hypertrophy. The left ventricular ejection fraction is 65 %. Diastolic function is indeterminate. The left atrium is severely enlarged. Bubble contrast study is negative for PFO/ASD. Mild-Moderate (1-2+) mitral valve insufficiency. Mild (1+) tricuspid valve insufficiency. Mild-Moderate (1-2+) pulmonic valve insufficiency. Ordering Physician: Enid Sparrow Referring Physician: Ryan Edwards Performed By: Pat Valdivia, JESUS, RVT 09/19/22 1432 Date Enid Sparrow MD CC: PAMELA Edwards; Dr. Enid Sparrow MD Date Dictated: 09/19/22 1002 Date Transcribed: 09/19/22 143 Train Announcer: Signed Normal [facility] Stress Reporton 09-19-2022 Stress Report [facility] [address] [address] MR#: [id number] Acct: [id number] Name: RU WORKMAN Rep #: [id number] : 1955 67 From: Enid Sparrow MD Primary Care: PAMELA Davidson Status: REG CLI Referring Dr: Enid Sparrow MD Sex: M C Stress Test Report Date: 09/19/2022 Procedure: Pharmacologic stress nuclear imaging study Indications: Arrhythmia Consent: Per the patient Procedure: The patient underwent pharmacologic (Regadenoson 0.4mg ) evaluation with a peak heart rate of 81 beats per minute (52%predicted maximal heart rate) and a peak blood pressure of 142/86 mmHg. The baseline ECG demonstrated normal sinus rhythm. The peak pharmacologic ECG demonstrated no ischemic changes. There were no cardiac dysrhythmias pretest, during pharmacologic infusion, or recovery. There was no complaint of chest discomfort during pharmacologic infusion or recovery. The patient was injected with 14.3 millicuries of technetium 99m Cardiolite and subsequently rest SPECT Cardiolite nuclear imaging was obtained in the horizontal long, vertical long, and short axis views. The patient underwent pharmacologic (Regadenoson) evaluation. The patient was injected with 44.1 millicuries of technetium 99m Cardiolite and subsequently stress SPECT Cardiolite nuclear imaging was obtained in the horizontal long, vertical long, and short axis views. A gated Cardiolite study at peak stress was obtained. The examination was stopped secondary to completion of protocol. Rest and stress SPECT Cardiolite nuclear imaging status post realignment, normalization, and attenuation correction demonstrate no fixed or reversible perfusion defects. There is end systolic thickening and brightening. The gated Cardiolite study demonstrates myocardial thickening and inward wall motion. The reported LVEF is 56%. Impression: 1. Pharmacologic (Regadenoson) evaluation 2. Peak pharmacologic ECG with no ischemic changes. 3. There were no cardiac dysrhythmias pretest, during pharmacologic infusion, or recovery. 5. No fixed or reversible perfusion defects. 6. The gated Cardiolite study reports an LVEF of 56%. This note was generated with [email or web address] software. It may contain incorrect words, spelling, and punctuation that were not noted in checking the note before signing. 09/19/22 1323 Date Enid Sparrow MD CC: TESTING LEAD-C Ryan Edwards; Dr. Enid Sparrow MD Date Dictated: 09/19/221319 Date Transcribed: 05/05/23 1320 Train Announcer: AIYANA Signed Normal [facility] INR (POC)on 09-16-2022 INR Coag (PPP) [Relative time] 3.9 {INR} High 0.8 - 1.2 [facility] Internal Quality Check Acceptable [facility] 12 Lead EKG performed by [facility] on 09-08-2022 12 Lead EKG performed by [facility] [address] [place] [address] 12 Lead EKG performed by [facility] 09/08/22 0909 MR#: [id number] Acct: [id number] Name: RU WORKMAN Rep #: [id number] : 1955 67 From: Enid Sparrow MD Attending Dr: Dr. Enid Sparrow MD Status: DEP AMB Ordering Dr: Enid Sparrow MD Date: 09/08/22 Location: [facility] Sex: M C Admitted: BMS/12 Lead EKG performed by [facility] ECG Report Interpretation S inus Rhythm - occasional PAC # PACs = 1.- Nonspecific T-abnormality. ABNORMAL Electronically signed on 09/09/2022 at 13:[address] Enid Sparrow [employer] Version [id number] 09/09/22 1338 Date Enid Sparrow MD CC: No Primary Care Physician Date Dictated: 09/08/2209 Date Transcribed: 09/08/22 09 Train Announcer: AIYANA Signed Normal [facility] Cardiology Visit Reporton Cardiology Visit Report [facility] [address] [place] [address] OFFICE VISIT Date of Service: 09/08/22 MR#: [id number] Acct: [id number] Name: LEANNARU AUGUSTIN Rep #: [id number] : 1955 Provider: Dr. Enid Sparrow MD Age/Sex: 67/M Location: [facility] Status: Signed [facility] History of Present Illness Details: This pleasant gentleman has a past medical history significant for paroxysmal atrial fibrillation and hypertension. He is recently being contemplated for hernia repair surgery and is here for his preoperative cardiovascular risk evaluation. Patient denies any previous history of heart failure or coronary artery disease. Denies any chest pains or shortness of breath either at rest or with exertion. Rare palpitations. No orthopnea. No PND. No ankle edema. Intake Vital Signs 01/17/21 09:57 09/08/22 09:08 09/08/22 09:12 Height 6 ft 6 ft 6 ft Weight: 231 lb 8 oz BMI 31.4 BP 153/91 H Blood Pressure Location Lt brachial Position Sitting Respiration 16 Pulse 74 Pulse Source Auscultation Intake Visit Reasons: HX AFIB, HERNIA CLEAR. [employer] Required: No Accompanied by: Self Allergies No Known Allergies Allergy (Verified 09/08/22 09:12) Medications diltiazem HCl 120 mg tablet,extended release 24 hr (Cardizem LA) 120 mg PO DAILY 01/17/21 [History Confirmed 09/08/22] omega 3-dha 200 mg-epa 300 mg-fish oil 1,000 mg capsule 1 cap PO DAILY 08/27/22 [History Confirmed 09/08/22] sildenafil 50 mg tablet 50 mg PO DAILY PRN 08/27/22 [History Confirmed 09/08/22] vitamin B complex 1 tab PO DAILY 08/27/22 [History Confirmed 09/08/22] warfarin 4 mg tablet 4 mg PO DAILY 08/27/22 [History Confirmed 09/08/22] warfarin 5 mg tablet 5 mg PO DAILY 08/27/22 [History Confirmed 09/08/22] cholecalciferol (vitamin D3) 125 mcg (5,000 unit) tablet 250 mcg PO DAILY 09/08/22 [History Confirmed 09/08/22] tamsulosin 0.4 mg capsule 0.4 mg PO DAILY 09/08/22 [History Confirmed 09/08/22] [facility] Medical History A-fib Essential hypertension First degree AV block Hematuria penitentiary current use of anticoagulant Melanoma of skin SHANNON (obstructive sleep apnea) Paroxysmal atrial fibrillation Preoperative cardiovascular examination SVT (supraventricular tachycardia) Urolithiasis Surgical History Cataract extraction status of left eye H/O excision of ganglion cyst H/O left wrist surgery History of arthroscopy of left shoulder History of knee surgery History of prostate biopsy History of right knee joint replacement History of tonsillectomy and adenoidectomy History of vasectomy Family History Father Heart disease Cancer Prostate Diabetes Sister Hypertension Social History Smoking Status: Never smoker alcohol intake: current details: 1-2 drinks daily substance use type: does not use ROS Const Const: Negative for fatigue, weakness, body ache, fever(s), headache(s), chills, frequent falls, night sweats, daytime sleepiness, difficulty sleeping, excessive sweating, weight gain, weight loss, increased appetite, poor appetite, anorexia or other Eyes Eyes: Negative for blurry vision or double vision ENT ENT: Negative for headache(s), dizziness or balance problems Cardio Chest Pain: No Palpitations: No Edema: None Muscle aches with walking: None Resp Respiratory: Positive for SOB with activity (baseline, slight) and other (wears CPAP at night); Negative for SOB at rest, SOB orthopnea SOB lying down, Cough, Coughing up blood/hemoptysis, chest congestion, pain on inspiration, snoring, stridor, wheezing, crackles or paroxysmal nocturnal dyspnea Musc Musc: Negative for muscle aches/ myalgia, muscle weakness, joint pain or balance problems Neuro Neuro: Negative for dizziness, lightheadedness, near syncope, syncope, orthostatic symptoms, frequent falls, headache(s), weakness, confusion, memory loss, restless legs, blurry vision, double vision, vertigo, seizures, lack of coordination or other Endo Endo: Negative for fatigue or excessive sweating Cardiology Exam Const Appearance: comfortable and no acute distress Nutritional Appearance: well nourished Neck Neck: no JVD Carotids: Negative bruit Chest Auscultation: Bilateral: Clear to Auscultation Cardio Rate: regular rate Rhythm: regular rhythm Heart sounds: S1 normal and S2 normal Neuro General: patient alert, patient awake and patient oriented x3 Extremities Lower Extremity Edema: None: Bilateral Supplemental Info Supplemental Information ECHOCARDIOGRAM 06/01/20 Interpretation The left ventricle is normal in size. T (more content not included)... Normal [facility] INR (POC)on 08-04-2022 INR Coag (PPP) [Relative time] 2.5 {INR} High 0.8 - 1.2 [facility] Internal Quality Check Acceptable [facility] INR (POC)on 07-21-2022 INR Coag (PPP) [Relative time] 3.1 {INR} High 0.8 - 1.2 [facility] Internal Quality Check Acceptable [facility] PT panel Coag (PPP)on 2022 INR Coag (PPP) [Relative time] 1.63 {INR} Abnormal 0.9 - 1.1 [facility] PT Coag (PPP) [Time] 20.3 s Abnormal 10 - 14 [facility] INR (POC)on 07-11-2022 INR Coag (PPP) [Relative time] 3.4 {INR} High 0.8 - 1.2 [facility] Internal Quality Check Acceptable [facility] Basic metabolic 2000 panelon 06-11-2022 Anion gap [Moles/Vol] 9 mmol/L 9 - 18 mmol/L [facility] Calcium [Mass/Vol] 9.4 mg/dL 8.5 - 10. 2 mg/dL [facility] Chloride [Moles/Vol] 105 mmol/L 97 - 10 5 mmol/L [facility] CO2 [Moles/Vol] 26 mmol/L 22 - 30 mmol/L [facility] Creatinine [Mass/Vol] 1.05 mg/dL 0.73 - 1.22 mg/dL [facility] Estimated Glomerular Filtration Rate 78 mL/min/1.73m >=60 mL/min/1.73 m [facility] Glucose [Mass/Vol] 103 mg/dL High 74 - 99 mg/dL [facility] Potassium [Moles/Vol] 4.2 mmol/L 3.7 - 5.1 mmol/L [facility] Sodium [Moles/Vol] 140 mmol/L 136 - 144 mmol/L [facility] Urea nitrogen [Mass/Vol] 23 mg/dL 9 - 24 mg/dL [facility] CBC panel Auto (Bld)on 06-11 Erythrocyte distribution width (RBC) [Ratio] 13.9 % 11.5 - 15.0 % [facility] Hematocrit (Bld) [Volume fraction] 43.9 % 39.0 - 51.0 % [facility] Hemoglobin (Bld) [Mass/Vol] 14.7 g/dL 13.0 - 17.0 g/dL [facility] MCH (RBC) [Entitic mass] 30.8 pg 26.0 - 34.0 pg [facility] MCHC (RBC) [Mass/Vol] 33.5 g/dL 30.5 - 36.0 g/dL [facility] MCV (RBC) [Entitic vol] 91.8 fL 80.0 - 100.0 fL [facility] Platelet mean volume (Bld) [Entitic vol] 10.0 fL 9.0 - 12.7 fL [facility] Platelets (Bld) [#/Vol] 174 10*3/uL 150 - 400 k/uL [facility] RBC (Bld) [#/Vol] 4.78 10*6/uL 4.20 - 6.0 0 m/uL [facility] WBC (Bld) [#/Vol] 10.48 10*3/uL 3.70 - 11.00 k/uL [facility] INR (POC)on 06-11-2022 INR Coag (PPP) [Relative time] 3.2 {INR} High 0.8 - 1.2 [facility] Internal Quality Check Acceptable [facility] INR (POC)on 05-28-2022 INR Coag (PPP) [Relative time] 2.5 {INR} High 0.8 - 1.2 [facility] Internal Quality Check Acceptable [facility] INR (POC)on 05-07-2022 INR Coag (PPP) [Relative time] 7.6 {INR} High 0.8 - 1.2 [facility] Internal Quality Check Acceptable [facility] INR Coag (PPP) [Relative time] 7.4 {INR} High 0.8 - 1.2 [facility] Internal Quality Check Acceptable [facility] PT panel Coag (PPP)on 2021 INR Coag (PPP) [Relative time] 7.5 {INR} High 0.9 - 1.3 [facility] PT Coag (PPP) [Time] 76.8 s High <13.1 sec [facility] UA DIP, URINE (POC)on 2021 BILIRUBIN UA (POCT) Negative Negative [facility] CLARITY UA (POCT) Clear [facility] COLOR UA (POCT) Yellow [facility] GLUCOSE UA (POCT) Negative Negative mg/dL [facility] HEMOGLOBIN/BLOOD UA (POCT) Small Abnormal Negative [facility] KETONE UA (POCT) Negative Negative mg/dL [facility] LEUKOCYTES UA (POCT) Negative Negative [facility] NITRITE UA (POCT) Negative Negative [facility] PH UA (POCT) 5.5 4.5 - 8.0 [facility] Protein Ql (U) Negative Negative mg/dL [facility] SPECIFIC GRAVITY UA (POCT) 1.025 1.005 - 1.030 [facility] UROBILINOGEN UA (POCT) 0.2 E.U./dL Normal E.U./dL [facility] INR (POC)on 03-10-2022 INR Coag (PPP) [Relative time] 1.9 {INR} High 0.8 - 1.2 [facility] Internal Quality Check Acceptable [facility] INR (POC)on 03-06-2022 INR Coag (PPP) [Relative time] 1.8 {INR} High 0.8 - 1.2 [facility] Internal Quality Check Acceptable [facility] INR FINGERSTICK B/Oon 2021 INR Coag (Bld) [Relative time] 1.4 {INR} [facility] Normal INR Range (> 3 months) [facility] Quality Check [facility] No Panel Information [facility] Vital Signs Date Time Vital Sign Value Performing Clinician Facility 11-11-2024 07:29-0400 Body height 182.88 cm Ryan Edwards NP-C Work Phone: [facility] 11-11-2024 07:29-0400 Body mass index (BMI) [Ratio] 30.5 kg/m2 Ryan Edwards TESTING LEAD-C Work Phone: [facility] 11-11-2024 07:29-0400 Body weight 102.05 kg Ryan Edwards TESTING LEAD-C Work Phone: [facility] 11-11-2024 07:29-0400 Diastolic blood pressure 81 mm[Hg] Ryan Edwards TESTING LEAD-C Work Phone: [facility] 11-11-2024 07:29-0400 Heart rate 127 /min Ryan Jerry TESTING LEAD-C Work Phone: [facility] 11-11-2024 07:29-0400 Respiratory rate 18 /min Ryan Jerry TESTING LEAD-C Work Phone: [facility] 11-11-2024 07:29-0400 SaO2% (BldA) [Mass fraction] 94 % Ryan Jerry TESTING LEAD-C Work Phone: [facility] 11-11-2024 07:29-0400 Systolic blood pressure 121 mm[Hg] Ryan Jerry TESTING LEAD-C Work Phone: [facility] 11-03-2024 08:38-0400 Diastolic blood pressure 70 mm[Hg] Nurse Newark Work Phone: [facility] 11-03-2024 08:38-0400 Systolic blood pressure 118 mm[Hg] Nurse Newark Work Phone: [facility] 10-31-2024 08:48-0400 Diastolic blood pressure 76 mm[Hg] Nurse [place] Work Phone: [facility] 10-31-2024 08:48-0400 Systolic blood pressure 128 mm[Hg] Nurse [place] Work Phone: [facility] 10-12-2024 10:37-0400 Body height 182.9 cm Wiliam Mikulski PA-C Work Phone: [facility] 10-12-2024 10:37-0400 Body mass index (BMI) [Ratio] 31.33 kg/m2 Wiliam Mikulski PA-C Work Phone: [facility] 10-12-2024 10:37-0400 Body weight 104.78 kg Wiliam Mikulski PA-C Work Phone: [facility] 10-12-2024 10:37-0400 Respiratory rate 20 /min Wiliam Mikulski PA-C Work Phone: [facility] 09-28-2024 13:19-0400 Diastolic blood pressure 80 mm[Hg] Nurse Newark Work Phone: [facility] 09-28-2024 13:19-0400 Systolic blood pressure 122 mm[Hg] Nurse [place] Work Phone: [facility] 08-29-2024 08:33-0400 Diastolic blood pressure 72 mm[Hg] Nurse [place] Work Phone: [facility] 08-29-2024 08:33-0400 Systolic blood pressure 128 mm[Hg] Nurse [place] Work Phone: [facility] 08-15-2024 08:55-0400 Diastolic blood pressure 78 mm[Hg] Nurse [place] Work Phone: [facility] 08-15-2024 08:55-0400 Systolic blood pressure 138 mm[Hg] Nurse [place] Work Phone: [facility] 08-01-2024 09:07-0400 Diastolic blood pressure 72 mm[Hg] Nurse [place] Work Phone: [facility] 08-01-2024 09:07-0400 Systolic blood pressure 120 mm[Hg] Nurse [place] Work Phone: [facility] 07-25-2024 08:34-0400 Diastolic blood pressure 70 mm[Hg] Nurse [place] Work Phone: [facility] 07-25-2024 08:34-0400 Systolic blood pressure 128 mm[Hg] Nurse [place] Work Phone: [facility] 06-27-2024 10:50-0500 Diastolic blood pressure 60 mm[Hg] Nurse [place] Work Phone: [facility] 06-27-2024 10:50-0500 Systolic blood pressure 128 mm[Hg] Nurse [place] Work Phone: [facility] 05-25-2024 10:12-0500 Diastolic blood pressure 72 mm[Hg] Nurse [place] Work Phone: [facility] 01-08-2025 10:12-0500 Systolic blood pressure 128 mm[Hg] Nurse [place] Work Phone: [facility] 04-25-2024 09:58-0500 Diastolic blood pressure 68 mm[Hg] Nurse [place] Work Phone: [facility] 04-25-2024 09:58-0500 Systolic blood pressure 128 mm[Hg] Nurse [place] Work Phone: [facility] 04-11-2024 09:15-0500 Diastolic blood pressure 72 mm[Hg] Nurse [place] Work Phone: [facility] 04-11-2024 09:15-0500 Systolic blood pressure 138 mm[Hg] Nurse [place] Work Phone: [facility] 03-14-2024 09:01-0400 Diastolic blood pressure 72 mm[Hg] Nurse [place] Work Phone: [facility] 03-14-2024 09:01-0400 Systolic blood pressure 128 mm[Hg] Nurse [place] Work Phone: [facility] 02-22-2024 09:55-0400 Diastolic blood pressure 70 mm[Hg] Nurse [place] Work Phone: [facility] 02-22-2024 09:55-0400 Systolic blood pressure 128 mm[Hg] Nurse [place] Work Phone: [facility] 01-26-2024 10:22-0400 Diastolic blood pressure 78 mm[Hg] Nurse [place] Work Phone: [facility] 01-26-2024 10:22-0400 Systolic blood pressure 120 mm[Hg] Nurse [place] Work Phone: [facility] 01-11-2024 08:00-0400 Diastolic blood pressure 78 mm[Hg] Nurse [place] Work Phone: [facility] 01-11-2024 08:00-0400 Systolic blood pressure 128 mm[Hg] Nurse [place] Work Phone: [facility] 01-05-2024 09:11-0400 Body height 182.9 cm Stan Tai Jr., MD Work Phone: [facility] 01-05-2024 09:11-0400 Body mass index (BMI) [Ratio] 31.19 kg/m2 Stan Tai Jr., MD Work Phone: [facility] 01-05-2024 09:11-0400 Body weight 104.33 kg Stan Tai Jr., MD Work Phone: [facility] 10-30-2023 09:04-0400 Body height 182.9 cm Pancho Pino MD Work Phone: [facility] 10-30-2023 09:04-0400 Body mass index (BMI) [Ratio] 29.02 kg/m2 Pancho Pino MD Work Phone: [facility] 10-30-2023 09:04-0400 Body weight 97.07 kg Pancho Pino MD Work Phone: [facility] 09-25-2023 09:37-0400 Diastolic blood pressure 70 mm[Hg] Nurse [place] Work Phone: [facility] 09-25-2023 09:37-0400 Systolic blood pressure 120 mm[Hg] Nurse [place] Work Phone: [facility] 09-25-2023 08:57-0400 Body height 182.9 cm Pancho Pino MD Work Phone: [facility] 09-25-2023 08:57-0400 Body mass index (BMI) [Ratio] 28.75 kg/m2 Pancho Pino MD Work Phone: [facility] 09-25-2023 08:57-0400 Body weight 96.16 kg Pancho Pino MD Work Phone: [facility] 09-17-2023 10:16-0400 Body height 182.9 cm Rickey Woodruff DPM Work Phone: [facility] 09-17-2023 10:16-0400 Body mass index (BMI) [Ratio] 28.75 kg/m2 Rickey Woodruff DPM Work Phone: [facility] 09-17-2023 10:16-0400 Body weight 96.16 kg Rickey Woodruff DPM Work Phone: [facility] 09-17-2023 10:16-0400 Respiratory rate 17 /min Rickey Woodruff DPM Work Phone: [facility] 09-14-2023 07:51-0400 Diastolic blood pressure 80 mm[Hg] Ryan Jerry NON DESTRUCTIVE TESTING ENGINEER.WAFFLE MACHINE OPERATOR Work Phone: [facility] 09-14-2023 07:51-0400 Systolic blood pressure 138 mm[Hg] Ryan Jerry NON DESTRUCTIVE TESTING ENGINEER.WAFFLE MACHINE OPERATOR Work Phone: [facility] 09-14-2023 07:42-0400 Body height 182.9 cm Ryan Maganael NON DESTRUCTIVE TESTING ENGINEER.WAFFLE MACHINE OPERATOR Work Phone: [facility] 09-14-2023 07:42-0400 Body mass index (BMI) [Ratio] 28.75 kg/m2 Ryan Maganael NON DESTRUCTIVE TESTING ENGINEER.WAFFLE MACHINE OPERATOR Work Phone: [facility] 09-14-2023 07:42-0400 Body temperature 97.59 [degF] Ryan Jerry NON DESTRUCTIVE TESTING ENGINEER.WAFFLE MACHINE OPERATOR Work Phone: [facility] 09-14-2023 07:42-0400 Body weight 96.16 kg Ryan Jerry NON DESTRUCTIVE TESTING ENGINEER.WAFFLE MACHINE OPERATOR Work Phone: [facility] 09-14-2023 07:42-0400 Heart rate 66 /min Ryan Jerry NON DESTRUCTIVE TESTING ENGINEER.WAFFLE MACHINE OPERATOR Work Phone: [facility] 09-14-2023 07:42-0400 Respiratory rate 18 /min Ryan Jerry NON DESTRUCTIVE TESTING ENGINEER.WAFFLE MACHINE OPERATOR Work Phone: [facility] 09-14-2023 07:42-0400 SaO2% (BldA) [Mass fraction] 97 % Ryan Edwards NON DESTRUCTIVE TESTING ENGINEER.WAFFLE MACHINE OPERATOR Work Phone: [facility] 08-06-2023 11:24-0400 Body height 182.9 cm Rickey Kacy DPM Work Phone: [facility] 08-06-2023 11:24-0400 Body weight 97.52 kg Rickey Kacy DPM Work Phone: [facility] 08-06-2023 11:24-0400 Respiratory rate 18 /min Rickey Kacy DPM Work Phone: [facility] 07-30-2023 09:06-0400 Diastolic blood pressure 76 mm[Hg] Nurse [place] Work Phone: [facility] 07-30-2023 09:06-0400 Systolic blood pressure 124 mm[Hg] Nurse [place] Work Phone: [facility] 07-23-2023 08:50-0500 Diastolic blood pressure 76 mm[Hg] Nurse [place] Work Phone: [facility] 07-23-2023 08:50-0500 Systolic blood pressure 122 mm[Hg] Nurse [place] Work Phone: [facility] 07-16-2023 13:59-0500 Diastolic blood pressure 72 mm[Hg] Nurse [place] Work Phone: [facility] 07-16-2023 13:59-0500 Systolic blood pressure 128 mm[Hg] Nurse [place] Work Phone: [facility] 07-09-2023 10:48-0500 Body height 182.9 cm Rickey Kacy DPM Work Phone: [facility] 07-09-2023 10:48-0500 Body weight 97.52 kg Rickey Kacy DPM Work Phone: [facility] 07-09-2023 10:48-0500 Respiratory rate 18 /min Rickey Kacy DPM Work Phone: [facility] 07-06-2023 09:17-0500 Diastolic blood pressure 78 mm[Hg] Nurse [place] Work Phone: [facility] 07-06-2023 09:17-0500 Systolic blood pressure 128 mm[Hg] Nurse [place] Work Phone: [facility] 06-29-2023 09:15-0500 Diastolic blood pressure 76 mm[Hg] Nurse [place] Work Phone: [facility] 06-29-2023 09:15-0500 Systolic blood pressure 122 mm[Hg] Nurse [place] Work Phone: [facility] 06-25-2023 13:35-0500 Body height 182.9 cm Rickey Kacy DPM Work Phone: [facility] 06-25-2023 13:35-0500 Body weight 97.52 kg Rickey Kacy DPM Work Phone: [facility] 06-25-2023 13:35-0500 Respiratory rate 18 /min Rickey Kacy DPM Work Phone: [facility] 06-22-2023 09:32-0500 Diastolic blood pressure 76 mm[Hg] Nurse [place] Work Phone: [facility] 06-22-2023 09:32-0500 Systolic blood pressure 128 mm[Hg] Nurse [place] Work Phone: [facility] 06-05-2023 13:15-0500 Body height 182.88 cm TESTING LEAD-C Ryan Edwards TESTING LEAD Work Phone: [facility] 06-05-2023 13:15-0500 Body mass index (BMI) [Ratio] 30.1 kg/m2 TESTING LEAD-C Ryan Jerry TESTING LEAD Work Phone: [facility] 06-05-2023 13:15-0500 Body weight 100.69 kg TESTING LEAD-C Ryan Jerry TESTING LEAD Work Phone: [facility] 06-05-2023 13:15-0500 Diastolic blood pressure 76 mm[Hg] TESTING LEAD-C Ryan Jerry TESTING LEAD Work Phone: [facility] 06-05-2023 13:15-0500 Heart rate 100 /min TESTING LEAD-C Ryan Jerry TESTING LEAD Work Phone: [facility] 06-05-2023 13:15-0500 Respiratory rate 20 /min TESTING LEAD-C Ryan Jerry TESTING LEAD Work Phone: [facility] 06-05-2023 13:15-0500 SaO2% (BldA) [Mass fraction] 96 % TESTING LEAD-C Ryan Jerry TESTING LEAD Work Phone: [facility] 06-05-2023 13:15-0500 Systolic blood pressure 117 mm[Hg] TESTING LEAD-C Ryan Jerry TESTING LEAD Work Phone: [facility] 05-07-2023 08:28-0500 Body height 182.9 cm Ryan Jerry NON DESTRUCTIVE TESTING ENGINEER.WAFFLE MACHINE OPERATOR Work Phone: [facility] 05-07-2023 08:28-0500 Body temperature 97.81 [degF] Ryan Jerry NON DESTRUCTIVE TESTING ENGINEER.WAFFLE MACHINE OPERATOR Work Phone: [facility] 05-07-2023 08:28-0500 Body weight 104.33 kg Ryan Jerry NON DESTRUCTIVE TESTING ENGINEER.WAFFLE MACHINE OPERATOR Work Phone: [facility] 05-07-2023 08:28-0500 Diastolic blood pressure 70 mm[Hg] Ryan Jerry NON DESTRUCTIVE TESTING ENGINEER.WAFFLE MACHINE OPERATOR Work Phone: [facility] 05-07-2023 08:28-0500 Heart rate 64 /min Ryan Jerry NON DESTRUCTIVE TESTING ENGINEER.WAFFLE MACHINE OPERATOR Work Phone: [facility] 05-07-2023 08:28-0500 Respiratory rate 18 /min Ryan Jerry NON DESTRUCTIVE TESTING ENGINEER.WAFFLE MACHINE OPERATOR Work Phone: [facility] 05-07-2023 08:28-0500 SaO2% (BldA) [Mass fraction] 96 % Ryan Jerry NON DESTRUCTIVE TESTING ENGINEER.WAFFLE MACHINE OPERATOR Work Phone: [facility] 05-07-2023 08:28-0500 Systolic blood pressure 122 mm[Hg] Ryan Jerry NON DESTRUCTIVE TESTING ENGINEER.WAFFLE MACHINE OPERATOR Work Phone: [facility] 04-16-2023 11:35-0500 Body temperature 97.59 [degF] Ryan Jerry NON DESTRUCTIVE TESTING ENGINEER.WAFFLE MACHINE OPERATOR Work Phone: [facility] 04-16-2023 11:35-0500 Diastolic blood pressure 70 mm[Hg] Ryan Jerry NON DESTRUCTIVE TESTING ENGINEER.WAFFLE MACHINE OPERATOR Work Phone: [facility] 04-16-2023 11:35-0500 Heart rate 67 /min Ryan Jerry NON DESTRUCTIVE TESTING ENGINEER.WAFFLE MACHINE OPERATOR Work Phone: [facility] 04-16-2023 11:35-0500 Respiratory rate 18 /min Ryan Jerry NON DESTRUCTIVE TESTING ENGINEER.WAFFLE MACHINE OPERATOR Work Phone: [facility] 04-16-2023 11:35-0500 SaO2% (BldA) [Mass fraction] 97 % Ryan Jerry NON DESTRUCTIVE TESTING ENGINEER.WAFFLE MACHINE OPERATOR Work Phone: [facility] 04-16-2023 11:35-0500 Systolic blood pressure 122 mm[Hg] Ryan Jerry NON DESTRUCTIVE TESTING ENGINEER.WAFFLE MACHINE OPERATOR Work Phone: [facility] 04-15-2023 10:08-0500 Body height 182.9 cm Rickey Kacy DPM Work Phone: [facility] 04-15-2023 10:08-0500 Body weight 104.33 kg Rickey Kacy DPM Work Phone: [facility] 04-15-2023 10:08-0500 Respiratory rate 18 /min Rickey Kacy DPM Work Phone: [facility] 04-02-2023 08:22-0500 Body height 182.9 cm Rickey Kacy DPM Work Phone: [facility] 04-02-2023 08:22-0500 Body weight 104.33 kg Rickey Kacy DPM Work Phone: [facility] 04-02-2023 08:22-0500 Respiratory rate 16 /min Rickey Kacy DPM Work Phone: [facility] 03-11-2023 10:11-0400 Diastolic blood pressure 62 mm[Hg] Ryan Jerry NON DESTRUCTIVE TESTING ENGINEER.WAFFLE MACHINE OPERATOR Work Phone: [facility] 03-11-2023 10:11-0400 Systolic blood pressure 122 mm[Hg] Ryan Jerry NON DESTRUCTIVE TESTING ENGINEER.WAFFLE MACHINE OPERATOR Work Phone: [facility] 03-11-2023 09:53-0400 Body height 182.9 cm Ryan Jerry NON DESTRUCTIVE TESTING ENGINEER.WAFFLE MACHINE OPERATOR Work Phone: [facility] 03-11-2023 09:53-0400 Body temperature 97.81 [degF] Ryan Jerry NON DESTRUCTIVE TESTING ENGINEER.WAFFLE MACHINE OPERATOR Work Phone: [facility] 03-11-2023 09:53-0400 Body weight 104.78 kg Ryan Jerry NON DESTRUCTIVE TESTING ENGINEER.WAFFLE MACHINE OPERATOR Work Phone: [facility] 03-11-2023 09:53-0400 Heart rate 88 /min Ryan Jerry NON DESTRUCTIVE TESTING ENGINEER.WAFFLE MACHINE OPERATOR Work Phone: [facility] 03-11-2023 09:53-0400 Respiratory rate 18 /min Ryan Jerry NON DESTRUCTIVE TESTING ENGINEER.WAFFLE MACHINE OPERATOR Work Phone: [facility] 03-11-2023 09:53-0400 SaO2% (BldA) [Mass fraction] 98 % Ryan Jerry NON DESTRUCTIVE TESTING ENGINEER.WAFFLE MACHINE OPERATOR Work Phone: [facility] 03-02-2023 08:10-0400 Diastolic blood pressure 78 mm[Hg] Nurse [place] Work Phone: [facility] 03-02-2023 08:10-0400 Systolic blood pressure 128 mm[Hg] Nurse [place] Work Phone: [facility] 02-10-2023 08:08-0400 Diastolic blood pressure 80 mm[Hg] Ryan Jerry NON DESTRUCTIVE TESTING ENGINEER.WAFFLE MACHINE OPERATOR Work Phone: [facility] 02-10-2023 08:08-0400 Systolic blood pressure 132 mm[Hg] Ryan Jerry NON DESTRUCTIVE TESTING ENGINEER.WAFFLE MACHINE OPERATOR Work Phone: [facility] 02-10-2023 07:56-0400 Body height 182.9 cm Ryan Jerry NON DESTRUCTIVE TESTING ENGINEER.WAFFLE MACHINE OPERATOR Work Phone: [facility] 02-10-2023 07:56-0400 Body temperature 98.2 [degF] Ryan Edwards NON DESTRUCTIVE TESTING ENGINEER.WAFFLE MACHINE OPERATOR Work Phone: [facility] 02-10-2023 07:56-0400 Body weight 106.69 kg Ryan Edwards NON DESTRUCTIVE TESTING ENGINEER.WAFFLE MACHINE OPERATOR Work Phone: [facility] 02-10-2023 07:56-0400 Heart rate 62 /min Ryan Edwards NON DESTRUCTIVE TESTING ENGINEER.WAFFLE MACHINE OPERATOR Work Phone: [facility] 02-10-2023 07:56-0400 Respiratory rate 18 /min Ryan Edwards NON DESTRUCTIVE TESTING ENGINEER.WAFFLE MACHINE OPERATOR Work Phone: [facility] 02-10-2023 07:56-0400 SaO2% (BldA) [Mass fraction] 96 % Ryan Edwards NON DESTRUCTIVE TESTING ENGINEER.WAFFLE MACHINE OPERATOR Work Phone: [facility] 12-29-2022 08:39-0400 Diastolic blood pressure 78 mm[Hg] Nurse [place] Work Phone: [facility] 12-29-2022 08:39-0400 Systolic blood pressure 128 mm[Hg] Nurse [place] Work Phone: [facility] 12-15-2022 08:21-0400 Diastolic blood pressure 78 mm[Hg] Nurse [place] Work Phone: [facility] 12-15-2022 08:21-0400 Systolic blood pressure 128 mm[Hg] Nurse [place] Work Phone: [facility] 12-08-2022 08:15-0400 Diastolic blood pressure 78 mm[Hg] Nurse [place] Work Phone: [facility] 12-08-2022 08:15-0400 Systolic blood pressure 128 mm[Hg] Nurse [place] Work Phone: [facility] 10-22-2022 08:50-0400 Diastolic blood pressure 78 mm[Hg] Nurse [place] Work Phone: [facility] 10-22-2022 08:50-0400 Systolic blood pressure 128 mm[Hg] Nurse [place] Work Phone: [facility] 09-23-2022 08:20-0400 Diastolic blood pressure 78 mm[Hg] Nurse [place] Work Phone: [facility] 09-23-2022 08:20-0400 Systolic blood pressure 128 mm[Hg] Nurse [place] Work Phone: [facility] 09-18-2022 08:13-0400 Diastolic blood pressure 78 mm[Hg] Nurse [place] Work Phone: [facility] 09-18-2022 08:13-0400 Systolic blood pressure 128 mm[Hg] Nurse [place] Work Phone: [facility] 09-16-2022 09:48-0400 Body height 182.9 cm Ryan Jerry NON DESTRUCTIVE TESTING ENGINEER.WAFFLE MACHINE OPERATOR Work Phone: [facility] 09-16-2022 09:48-0400 Body temperature 98.2 [degF] Ryan Jerry NON DESTRUCTIVE TESTING ENGINEER.WAFFLE MACHINE OPERATOR Work Phone: [facility] 09-16-2022 09:48-0400 Body weight 101.61 kg Ryan Jerry NON DESTRUCTIVE TESTING ENGINEER.WAFFLE MACHINE OPERATOR Work Phone: [facility] 09-16-2022 09:48-0400 Diastolic blood pressure 70 mm[Hg] Ryan Jerry NON DESTRUCTIVE TESTING ENGINEER.WAFFLE MACHINE OPERATOR Work Phone: [facility] 09-16-2022 09:48-0400 Heart rate 65 /min Ryan Jerry NON DESTRUCTIVE TESTING ENGINEER.WAFFLE MACHINE OPERATOR Work Phone: [facility] 09-16-2022 09:48-0400 Respiratory rate 18 /min Ryan Jerry NON DESTRUCTIVE TESTING ENGINEER.WAFFLE MACHINE OPERATOR Work Phone: [facility] 09-16-2022 09:48-0400 SaO2% (BldA) [Mass fraction] 96 % Ryan Jerry NON DESTRUCTIVE TESTING ENGINEER.WAFFLE MACHINE OPERATOR Work Phone: [facility] 09-16-2022 09:48-0400 Systolic blood pressure 122 mm[Hg] Ryan Edwards APRN.CNP Work Phone: [facility] 09-08-2022 09:12-0400 Body height 182.88 cm No Primary Care Physician [facility] 09-08-2022 09:12-0400 Body mass index (BMI) [Ratio] 31.4 kg/m2 No Primary Care Physician [facility] 09-08-2022 09:12-0400 Body weight 105 kg No Primary Care Physician [facility] 09-08-2022 09:12-0400 Diastolic blood pressure 91 mm[Hg] No Primary Care Physician [facility] 09-08-2022 09:12-0400 Heart rate 74 /min No Primary Care Physician [facility] 09-08-2022 09:12-0400 Respiratory rate 16 /min No Primary Care Physician [facility] 09-08-2022 09:12-0400 Systolic blood pressure 153 mm[Hg] No Primary Care Physician [facility] 08-04-2022 13:19-0400 Body height 182.9 cm Shan Soto MD Work Phone: [facility] 08-04-2022 13:19-0400 Body weight 104.78 kg Shan Soto MD Work Phone: [facility] 08-04-2022 13:19-0400 Diastolic blood pressure 82 mm[Hg] Shan Soto MD Work Phone: [facility] 08-04-2022 13:19-0400 Heart rate 71 /min Shan Soto MD Work Phone: [facility] 08-04-2022 13:19-0400 Systolic blood pressure 158 mm[Hg] Shan Soto MD Work Phone: [facility] 08-04-2022 08:38-0400 Diastolic blood pressure 78 mm[Hg] Nurse Bill Work Phone: [facility] 08-04-2022 08:38-0400 Systolic blood pressure 128 mm[Hg] Nurse [place] Work Phone: [facility] 07-28-2022 08:25-0400 Diastolic blood pressure 70 mm[Hg] Nurse [place] Work Phone: [facility] 07-28-2022 08:25-0400 Systolic blood pressure 126 mm[Hg] Nurse [place] Work Phone: [facility] 07-21-2022 08:14-0500 Diastolic blood pressure 70 mm[Hg] Nurse [place] Work Phone: [facility] 07-21-2022 08:14-0500 Systolic blood pressure 122 mm[Hg] Nurse [place] Work Phone: [facility] 07-11-2022 08:23-0500 Diastolic blood pressure 70 mm[Hg] Nurse [place] Work Phone: [facility] 07-11-2022 08:23-0500 Systolic blood pressure 124 mm[Hg] Nurse [place] Work Phone: [facility] 06-26-2022 10:58-0500 Body height 182.9 cm Stan Tai Jr., MD Work Phone: [facility] 06-26-2022 10:58-0500 Body weight 105.69 kg Stan Tai Jr., MD Work Phone: [facility] 06-26-2022 10:58-0500 Diastolic blood pressure 80 mm[Hg] Stan Tai Jr., MD Work Phone: [facility] 06-26-2022 10:58-0500 Systolic blood pressure 134 mm[Hg] Stan Tai Jr., MD Work Phone: [facility] 06-23-2022 08:30-0500 Diastolic blood pressure 70 mm[Hg] Nurse [place] Work Phone: [facility] 06-23-2022 08:30-0500 Systolic blood pressure 128 mm[Hg] Nurse [place] Work Phone: [facility] 06-11-2022 09:00-0500 Diastolic blood pressure 80 mm[Hg] Ryan Edwards APRN.CNP Work Phone: [facility] 06-11-2022 09:00-0500 Systolic blood pressure 146 mm[Hg] Ryan Jerry NON DESTRUCTIVE TESTING ENGINEER.WAFFLE MACHINE OPERATOR Work Phone: [facility] 06-11-2022 08:27-0500 Body height 182.9 cm Ryan Jerry NON DESTRUCTIVE TESTING ENGINEER.WAFFLE MACHINE OPERATOR Work Phone: [facility] 06-11-2022 08:27-0500 Body temperature 97.59 [degF] Ryan Jerry NON DESTRUCTIVE TESTING ENGINEER.WAFFLE MACHINE OPERATOR Work Phone: [facility] 06-11-2022 08:27-0500 Body weight 105.96 kg Ryan Jerry NON DESTRUCTIVE TESTING ENGINEER.WAFFLE MACHINE OPERATOR Work Phone: [facility] 06-11-2022 08:27-0500 Heart rate 58 /min Ryan Jerry NON DESTRUCTIVE TESTING ENGINEER.WAFFLE MACHINE OPERATOR Work Phone: [facility] 06-11-2022 08:27-0500 Respiratory rate 18 /min Ryan Jerry NON DESTRUCTIVE TESTING ENGINEER.WAFFLE MACHINE OPERATOR Work Phone: [facility] 06-11-2022 08:27-0500 SaO2% (BldA) [Mass fraction] 98 % Ryan Jerry NON DESTRUCTIVE TESTING ENGINEER.WAFFLE MACHINE OPERATOR Work Phone: [facility] 06-03-2022 10:34-0500 Body height 182.9 cm Mehrdad Llanes MD Work Phone: [facility] 06-03-2022 10:34-0500 Body weight 105.23 kg Mehrdad Llanes MD Work Phone: [facility] 06-03-2022 10:34-0500 Diastolic blood pressure 70 mm[Hg] Mehrdad Llanes MD Work Phone: [facility] 06-03-2022 10:34-0500 Systolic blood pressure 130 mm[Hg] Mehrdad Llanes MD Work Phone: [facility] 06-02-2022 11:21-0500 Body height 182.9 cm Lorraine Rosa NON DESTRUCTIVE TESTING ENGINEER.WAFFLE MACHINE OPERATOR Work Phone: [facility] 06-02-2022 11:21-0500 Body temperature 97.7 [degF] Lorraine Queden NON DESTRUCTIVE TESTING ENGINEER.WAFFLE MACHINE OPERATOR Work Phone: [facility] 06-02-2022 11:21-0500 Body weight 105.23 kg Lorraine Queden NON DESTRUCTIVE TESTING ENGINEER.WAFFLE MACHINE OPERATOR Work Phone: [facility] 06-02-2022 11:21-0500 Diastolic blood pressure 62 mm[Hg] Lorraine Queden NON DESTRUCTIVE TESTING ENGINEER.WAFFLE MACHINE OPERATOR Work Phone: [facility] 06-02-2022 11:21-0500 Heart rate 60 /min Lorraine Queden NON DESTRUCTIVE TESTING ENGINEER.WAFFLE MACHINE OPERATOR Work Phone: [facility] 06-02-2022 11:21-0500 SaO2% (BldA) [Mass fraction] 96 % Lorraine Queden NON DESTRUCTIVE TESTING ENGINEER.WAFFLE MACHINE OPERATOR Work Phone: [facility] 06-02-2022 11:21-0500 Systolic blood pressure 126 mm[Hg] Lorraine Queden NON DESTRUCTIVE TESTING ENGINEER.WAFFLE MACHINE OPERATOR Work Phone: [facility] 05-28-2022 08:11-0500 Diastolic blood pressure 78 mm[Hg] Nurse [place] Work Phone: [facility] 05-28-2022 08:11-0500 Systolic blood pressure 138 mm[Hg] Nurse [place] Work Phone: [facility] 05-22-2022 14:15-0500 Body height 182.9 cm Kyrie Pardo MD Work Phone: [facility] 05-22-2022 14:15-0500 Body weight 104.33 kg Kyrie Pardo MD Work Phone: [facility] 05-22-2022 14:15-0500 Respiratory rate 18 /min Kyrie Pardo MD Work Phone: [facility] 05-20-2022 14:21-0500 Body height 182.9 cm Lorraine Queden NON DESTRUCTIVE TESTING ENGINEER.WAFFLE MACHINE OPERATOR Work Phone: [facility] 05-20-2022 14:21-0500 Body temperature 98.2 [degF] Lorraine Queden NON DESTRUCTIVE TESTING ENGINEER.WAFFLE MACHINE OPERATOR Work Phone: [facility] 05-20-2022 14:21-0500 Body weight 104.33 kg Lorraine Queden NON DESTRUCTIVE TESTING ENGINEER.WAFFLE MACHINE OPERATOR Work Phone: [facility] 05-20-2022 14:21-0500 Diastolic blood pressure 76 mm[Hg] Lorraine Queden NON DESTRUCTIVE TESTING ENGINEER.WAFFLE MACHINE OPERATOR Work Phone: [facility] 05-20-2022 14:21-0500 Heart rate 63 /min Lorraine Queden NON DESTRUCTIVE TESTING ENGINEER.WAFFLE MACHINE OPERATOR Work Phone: [facility] 05-20-2022 14:21-0500 Respiratory rate 18 /min Lorraine Queden NON DESTRUCTIVE TESTING ENGINEER.WAFFLE MACHINE OPERATOR Work Phone: [facility] 05-20-2022 14:21-0500 SaO2% (BldA) [Mass fraction] 96 % Lorraine Queden NON DESTRUCTIVE TESTING ENGINEER.WAFFLE MACHINE OPERATOR Work Phone: [facility] 05-20-2022 14:21-0500 Systolic blood pressure 134 mm[Hg] Lorraine Queden NON DESTRUCTIVE TESTING ENGINEER.WAFFLE MACHINE OPERATOR Work Phone: [facility] 05-14-2022 08:34-0500 Diastolic blood pressure 72 mm[Hg] Nurse [place] Work Phone: [facility] 05-14-2022 08:34-0500 Systolic blood pressure 128 mm[Hg] Nurse [place] Work Phone: [facility] 05-09-2022 08:33-0500 Diastolic blood pressure 72 mm[Hg] Nurse [place] Work Phone: [facility] 05-09-2022 08:33-0500 Systolic blood pressure 128 mm[Hg] Nurse [place] Work Phone: [facility] 04-07-2022 08:39-0500 Diastolic blood pressure 82 mm[Hg] Nurse [place] Work Phone: [facility] 04-07-2022 08:39-0500 Systolic blood pressure 128 mm[Hg] Nurse [place] Work Phone: [facility] 03-28-2022 09:44-0500 Diastolic blood pressure 80 mm[Hg] Nurse [place] Work Phone: [facility] 03-28-2022 09:44-0500 Systolic blood pressure 132 mm[Hg] Nurse [place] Work Phone: [facility] 03-27-2022 10:44-0500 Body height 182.9 cm Stan Tai Jr., MD Work Phone: [facility] 03-27-2022 10:44-0500 Body weight 102.06 kg Stan Tai Jr., MD Work Phone: [facility] 03-27-2022 10:44-0500 Diastolic blood pressure 92 mm[Hg] Stan Tai Jr., MD Work Phone: [facility] 03-27-2022 10:44-0500 Systolic blood pressure 146 mm[Hg] Stan Tai Jr., MD Work Phone: [facility] 03-17-2022 08:48-0400 Diastolic blood pressure 76 mm[Hg] Nurse [place] Work Phone: [facility] 03-17-2022 08:48-0400 Systolic blood pressure 128 mm[Hg] Nurse [place] Work Phone: [facility] 03-06-2022 08:22-0400 Diastolic blood pressure 80 mm[Hg] Nurse [place] Work Phone: [facility] 03-06-2022 08:22-0400 Systolic blood pressure 142 mm[Hg] Nurse [place] Work Phone: [facility] 02-26-2022 11:45-0400 Diastolic blood pressure 82 mm[Hg] Ryan Jerry NON DESTRUCTIVE TESTING ENGINEER.WAFFLE MACHINE OPERATOR Work Phone: [facility] 02-26-2022 11:45-0400 Systolic blood pressure 148 mm[Hg] Ryan Jerry NON DESTRUCTIVE TESTING ENGINEER.WAFFLE MACHINE OPERATOR Work Phone: [facility] 02-26-2022 10:41-0400 Body height 182.9 cm Ryan Jerry NON DESTRUCTIVE TESTING ENGINEER.WAFFLE MACHINE OPERATOR Work Phone: [facility] 02-26-2022 10:41-0400 Body temperature 98.2 [degF] Ryan Jerry NON DESTRUCTIVE TESTING ENGINEER.WAFFLE MACHINE OPERATOR Work Phone: [facility] 02-26-2022 10:41-0400 Body weight 104.24 kg Ryan Nagel NON DESTRUCTIVE TESTING ENGINEER.WAFFLE MACHINE OPERATOR Work Phone: [facility] 02-26-2022 10:41-0400 Heart rate 62 /min Rayn Jerry NON DESTRUCTIVE TESTING ENGINEER.WAFFLE MACHINE OPERATOR Work Phone: [facility] 02-26-2022 10:41-0400 Respiratory rate 18 /min Ryan Edwards NON DESTRUCTIVE TESTING ENGINEER.WAFFLE MACHINE OPERATOR Work Phone: [facility] 02-26-2022 10:41-0400 SaO2% (BldA) [Mass fraction] 97 % Ryan Edwards NON DESTRUCTIVE TESTING ENGINEER.WAFFLE MACHINE OPERATOR Work Phone: [facility] Encounters Encounter Date Encounter Type Care Provider Facility Start: 11-11-2024 End: 11-11-2024 ambulatory Ryan SANTIAGO Work Phone: -[facility] Start: 11-11-2024 End: 11-11-2024 Patient encounter procedure Venus Berry NP-C -[facility] Work Phone: Start: 11-09-2024 End: 11-09-2024 ambulatory RYAN EDWARDS Facility:[facility] Start: 11-09-2024 End: 11-09-2024 ambulatory RYANBRYAN EDWARDS [facility] Start: 11-08-2024 End: 11-08-2024 Telephone encounter Ryan Edwards NON DESTRUCTIVE TESTING ENGINEER.WAFFLE MACHINE OPERATOR Work Phone: [facility] Comment on above: Medication Problem ( Potassium from hospital d/c) Start: 11-07-2024 End: 11-07-2024 ambulatory Maty Stubbs RN Work Phone: Licensed Clinical Psychologist Start: 11-07-2024 End: 11-07-2024 Home visit Maty Stubbs RN Work Phone: Licensed Clinical Psychologist Comment on above: Transition Of Care ( CC Cruz D/C 11/06/24) Initial phone contact for Transitional Care Management Start: 11-05-2024 End: 11-06-2024 ambulatory BRITTNEE NAPIER Facility:[facility] Start: 11-05-2024 End: 11-05-2024 [facility] Start: 11-03-2024 End: 11-03-2024 Nursing evaluation of patient and report Nurse Intgerard [facility] Work Phone: [facility] Comment on above: Atrial fibrillation, unspecified type (HCC) (Primary Dx) Start: 11-03-2024 End: 11-03-2024 ambulatory [facility] Facility:[facility] Start: 11-02-2024 End: 11-02-2024 ambulatory Andrés Koutrodimos OTR/L Work Phone: [facility] Comment on above: Rupture of extensor tendon of finger (Primary Dx); Decreased range of motion of left thumb Start: 10-31-2024 End: 10-31-2024 ambulatory [facility] Facility:[facility] Start: 10-31-2024 End: 10-31-2024 Nursing evaluation of patient and report Nurse Intgerard [place] Work Phone: [facility] Comment on above: Atrial fibrillation, unspecified type (HCC) (Primary Dx) Start: 10-28-2024 End: 10-28-2024 ambulatory Andrés Koutrodimos OTR/L Work Phone: [facility] Comment on above: Rupture of extensor tendon of finger (Primary Dx); Left hand pain Start: 10-12-2024 End: 10-12-2024 Patient encounter procedure Wiliam George PA-C Work Phone: [facility] Comment on above: Postoperative state (Primary Dx); Rupture of extensor tendon of finger Start: 10-12-2024 End: 10-12-2024 ambulatory RYAN EDWARDS Facility:[facility] Start: 10-04-2024 End: 10-04-2024 ambulatory RYAN EDWARDS Facility:[facility] Start: 10-04-2024 Patient encounter procedure RYAN EDWARDS [facility] Start: 09-28-2024 End: 09-28-2024 Nursing evaluation of patient and report Nurse Taras [place] Work Phone: [facility] Comment on above: Atrial fibrillation, unspecified type (HCC) (Primary Dx) Start: 09-28-2024 End: 09-28-2024 ambulatory RYAN EDWARDS Facility:[facility] Start: 09-19-2024 End: 09-19-2024 Patient encounter procedure Ezio GOMEZ Work Phone: Audiology Comment on above: Tinnitus of both ear s (Primary Dx); Sensorineural hearing loss, asymmetrical Start: 09-19-2024 End: 09-19-2024 ambulatory RYAN EDWARDS Facility:[facility] Start: 09-15-2024 End: 09-15-2024 ambulatory Andrés Ott OTR/L Work Phone: [facility] Comment on above: Rupture of extensor tendon of finger (Primary Dx); Left hand pain Start: 09-14-2024 End: 09-14-2024 Patient encounter procedure Wiliam George PA-C Work Phone: [facility] Comment on above: Postoperative state (Primary Dx); Rupture of extensor tendon of finger Start: 09-14-2024 End: 09-14-2024 ambulatory RYAN EDWARDS Facility:[facility] Start: 09-12-2024 End: 09-12-2024 Patient encounter procedure Lyssa Colón MD Work Phone: Otolaryngology Comment on above: Hearing loss, unspec ified hearing loss type, unspecified laterality (Primary Dx); Impacted cerumen of both ears Start: 09-12-2024 End: 09-12-2024 Patient encounter procedure Ezio Richardson AUD Work Phone: Audiology Comment on above: Tinnitus of both ear s (Primary Dx); Hearing loss of both ears due to cerumen impaction Start: 09-12-2024 End: 09-12-2024 ambulatory RYAN M JERRY Facility:[facility] Start: 09-06-2024 End: 09-06-2024 ambulatory Gely Marrero OTR/L Work Phone: [facility] Comment on above: Left hand pain; Rupture of extensor tendon of finger Start: 09-02-2024 End: 09-02-2024 ambulatory [facility] Facility[facility] Start: 08-29-2024 End: 08-29-2024 Follow-up encounter Ryan Edwards APRN.WAFFLE MACHINE OPERATOR Work Phone: [facility] Comment on above: Results Start: 08-29-2024 End: 08-29-2024 Nursing evaluation of patient and report Nurse Intm Darvin [place] Work Phone: [facility] Comment on above: Atrial fibrillation, unspecified type (HCC) (Primary Dx) Start: 08-29-2024 End: 08-29-2024 ambulatory [facility] Facility[facility] Start: 08-26-2024 End: 08-26-2024 Patient encounter procedure Pancho Pino MD Work Phone: [facility] Comment on above: Left hand pain (Prim pamela Dx); Pain of left thumb; Rupture of extensor tendon of finger; Crepitant synovitis of wrist, left Start: 08-26-2024 End: 08-31-2024 Subsequent hospital visit by physician Xr [facility] Comment on above: Left hand pain [M79. 642] Left hand pain (Prim pamela Dx) Start: 08-26-2024 End: 08-26-2024 ambulatory [facility] Facility[facility] Start: 08-25-2024 End: 08-25-2024 Refill Ryan Edwards NON DESTRUCTIVE TESTING ENGINEER.WAFFLE MACHINE OPERATOR Work Phone: [facility] Comment on above: Refill Request Start: 08-23-2024 End: 08-23-2024 Telephone encounter Ryan Edwards NON DESTRUCTIVE TESTING ENGINEER.WAFFLE MACHINE OPERATOR Work Phone: [facility] Comment on above: Appointment Start: 08-18-2024 End: 08-18-2024 Refill Ryan Edwards NON DESTRUCTIVE TESTING ENGINEER.WAFFLE MACHINE OPERATOR Work Phone: [facility] Comment on above: Refill Request Start: 08-15-2024 End: 08-15-2024 Nursing evaluation of patient and report Nurse Intm Ag [place] Work Phone: [facility] Comment on above: Atrial fibrillation, unspecified type (HCC) (Primary Dx) Start: 08-15-2024 End: 08-15-2024 ambulatory RYAN EDWARDS Facility[facility] Start: 08-09-2024 End: 08-10-2024 Telephone encounter Ag Orth Work Phone: [facility] Comment on above: Appointment (AE, Lod i) Start: 08-08-2024 End: 08-08-2024 ambulatory Ryan Edwards NON DESTRUCTIVE TESTING ENGINEER.WAFFLE MACHINE OPERATOR Work Phone: [facility] Comment on above: Left thumd Start: 08-01-2024 End: 08-01-2024 Nursing evaluation of patient and report Nurse Intm Ag [place] Work Phone: [facility] Comment on above: Atrial fibrillation, unspecified type (HCC) (Primary Dx) Start: 08-01-2024 End: 08-01-2024 ambulatory RYANBRYAN EDWARDS Facility[facility] Start: 07-25-2024 End: 07-25-2024 Telephone encounter Ryan Edwards NON DESTRUCTIVE TESTING ENGINEER.WAFFLE MACHINE OPERATOR Work Phone: [facility] Comment on above: Orders Start: 07-25-2024 End: 07-25-2024 Nursing evaluation of patient and report Nurse Intm Ag Bill Work Phone: [facility] Comment on above: Atrial fibrillation, unspecified type (HCC) (Primary Dx) Start: 07-25-2024 End: 07-25-2024 [facility] Facility[facility] Start: 06-27-2024 End: 06-27-2024 Nursing evaluation of patient and report Nurse Intm Ag Bill Work Phone: [facility] Comment on above: Atrial fibrillation, unspecified type (HCC) (Primary Dx) Start: 06-27-2024 End: 06-27-2024 [facility] Start: 05-31-2024 End: 05-31-2024 Refill Lorraine Rosa APRN.CNP Work Phone: [facility] Comment on above: Med Change Request Start: 05-25-2024 End: 05-25-2024 Nursing evaluation of patient and report Nurse Intm Ag Bill Work Phone: [facility] Comment on above: Atrial fibrillation, unspecified type (HCC) (Primary Dx) Start: 05-25-2024 End: 05-25-2024 [facility] Start: 05-04-2024 End: 05-08-2024 Refill Caron Paul MD Work Phone: [facility] Comment on above: Refill Request Start: 04-25-2024 End: 04-25-2024 Nursing evaluation of patient and report Nurse Intm Darvin Khan Work Phone: [facility] Comment on above: Atrial fibrillation, unspecified type (HCC) (Primary Dx) Start: 04-25-2024 End: 04-25-2024 [facility] Start: 04-11-2024 End: 04-11-2024 [facility] Start: 04-11-2024 End: 04-11-2024 Nursing evaluation of patient and report Nurse Intm Ag [place] Work Phone: [facility] Comment on above: Atrial fibrillation, unspecified type (HCC) (Primary Dx) Start: 04-01-2024 End: 04-01-2024 Telephone encounter Ileana Quiroz MD, PhD Work Phone: [facility] Comment on above: Patient Question Start: 03-14-2024 End: 03-14-2024 [facility] Start: 03-14-2024 End: 03-14-2024 Nursing evaluation of patient and report Nurse Intm Ag Bill Work Phone: [facility] Comment on above: Atrial fibrillation, unspecified type (HCC) (Primary Dx) Start: 03-01-2024 End: 03-02-2024 Refill Thu C Sheets DO Work Phone: [facility] Comment on above: Refill Request Start: 02-29-2024 End: 02-29-2024 [facility] Start: 02-29-2024 End: 02-29-2024 Nursing evaluation of patient and report Nurse Intm Darvin Khan Work Phone: [facility] Comment on above: Atrial fibrillation, unspecified type (HCC) (Primary Dx) Start: 02-22-2024 End: 02-22-2024 [facility] Start: 02-22-2024 End: 02-22-2024 Nursing evaluation of patient and report Nurse Intgerard Khan Work Phone: [facility] Comment on above: Atrial fibrillation, unspecified type (HCC) (Primary Dx) Start: 01-26-2024 End: 01-26-2024 [facility] Start: 01-26-2024 End: 01-26-2024 Nursing evaluation of patient and report Nurse Intm Ag Bill Work Phone: [facility] Comment on above: Atrial fibrillation, unspecified type (HCC) (Primary Dx) Start: 01-11-2024 End: 01-11-2024 Nursing evaluation of patient and report Nurse Jeri Khan Work Phone: [facility] Comment on above: Atrial fibrillation, unspecified type (HCC) (Primary Dx) Start: 01-11-2024 End: 01-11-2024 ambulatory [facility] Start: 01-06-2024 End: 01-06-2024 Telephone encounter Stan Tai MD Work Phone: [facility] Comment on above: Results Start: 01-05-2024 End: 01-05-2024 ambulatory [facility] Facility:[facility] Start: 01-05-2024 End: 01-05-2024 Patient encounter procedure Stan Tai MD Work Phone: Urology Comment on above: BPH with obstruction /lower urinary tract symptoms (Primary Dx); Elevated prostate specific antigen (PSA); Erectile dysfunction of organic origin Start: 12-14-2023 End: 12-14-2023 ambulatory [facility] Facility:[facility] Start: 12-14-2023 End: 12-14-2023 Patient encounter procedure Marcin Monet OD Work Phone: Optometry Comment on above: Myopia, bilateral (P rimary Dx); Regular astigmatism of left eye; Pseudophakia Start: 12-09-2023 End: 12-09-2023 Nursing evaluation of patient and report Nurse Taras Khan Work Phone: [facility] Comment on above: Atrial fibrillation, unspecified type (HCC) (Primary Dx) Start: 12-09-2023 End: 12-09-2023 ambulatory [facility] Start: 12-03-2023 End: 12-03-2023 ambulatory ILEANA QUIROZ Facility:[facility] Start: 12-03-2023 End: 12-03-2023 Office outpatient visit 15 minutes Ileana Quiroz MD, PhD Work Phone: Ophthalmology Comment on above: Hx of retinal detach ment Start: 11-18-2023 End: 11-18-2023 Nursing evaluation of patient and report Nurse Intgerard Khan Work Phone: [facility] Comment on above: Atrial fibrillation, unspecified type (HCC) (Primary Dx) Start: 11-18-2023 End: 11-18-2023 [facility] RYAN EDWARDS Facility:[facility] Start: 11-05-2023 End: 11-05-2023 Nursing evaluation of patient and report Nurse Intgerard Khan Work Phone: [facility] Comment on above: Atrial fibrillation, unspecified type (HCC) (Primary Dx) Start: 10-30-2023 End: 10-30-2023 Patient encounter procedure Pancho Pino MD Work Phone: [facility] Comment on above: Primary osteoarthrit is of right wrist (Primary Dx); Ganglion cyst of wrist, right Start: 10-22-2023 End: 10-22-2023 Nursing evaluation of patient and report Nurse Cliffordgerard Khan Work Phone: [facility] Comment on above: Atrial fibrillation, unspecified type (HCC) (Primary Dx) Start: 10-08-2023 End: 10-08-2023 Nursing evaluation of patient and report Nurse Cliffordgerard Khan Work Phone: [facility] Comment on above: Atrial fibrillation, unspecified type (HCC) (Primary Dx) Start: 09-25-2023 End: 09-25-2023 Nursing evaluation of patient and report Nurse Jeri Darvin Khan Work Phone: [facility] Comment on above: Atrial fibrillation, unspecified type (HCC) (Primary Dx) Start: 09-25-2023 End: 09-25-2023 Patient encounter procedure Pancho Pino MD Work Phone: [facility] Comment on above: Ganglion cyst of wri st, right (Primary Dx); Primary osteoarthritis of right wrist Start: 09-24-2023 End: 09-24-2023 Subsequent hospital visit by physician Xr [facility] Comment on above: Ganglion cyst of wri st, right [M67.431] Start: 09-18-2023 End: 09-18-2023 ambulatory Mike Peacock PT Work Phone: [facility] Comment on above: Injury of right Achi lles tendon, subsequent encounter (Primary Dx); Difficulty walking Start: 09-17-2023 End: 09-17-2023 Patient encounter procedure Rickey Woodruff DPM Work Phone: [facility] Comment on above: Injury of right Achi lles tendon, subsequent encounter (Primary Dx) Start: 09-14-2023 End: 09-14-2023 Patient encounter procedure Ryan Edwards APRN.WAFFLE MACHINE OPERATOR Work Phone: [facility] Comment on above: Primary hypertension (Primary Dx); Atrial fibrillation, unspecified type (HCC); Malignant melanoma of torso excluding breast (HCC); SHANNON (obstructive sleep apnea); Elevated prostate specific antigen (PSA); Ganglion cyst of wrist, right Start: 09-09-2023 ambulatory Ryan hein APRN.WAFFLE MACHINE OPERATOR Work Phone: [facility] Start: 09-09-2023 Follow-up encounter Ryan Edwards APRN.WAFFLE MACHINE OPERATOR Work Phone: [facility] Comment on above: ED Follow-up ([facility] 09/07/[facility]) Start: 08-31-2023 End: 08-31-2023 ambulatory Kyrie Gr CABLE OPERATOR Work Phone: [facility] Comment on above: Injury of right Achi lles tendon, subsequent encounter (Primary Dx) Start: 08-25-2023 End: 08-25-2023 Nursing evaluation of patient and report Nurse Taras [place] Work Phone: [facility] Comment on above: Atrial fibrillation, unspecified type (HCC) (Primary Dx) Start: 08-25-2023 End: 08-25-2023 ambulatory Kyrie Gr CABLE OPERATOR Work Phone: [facility] Comment on above: Injury of right Achi lles tendon, subsequent encounter (Primary Dx); Difficulty walking Start: 08-17-2023 End: 08-17-2023 ambulatory Mikegloria Peacock PT Work Phone: [facility] Comment on above: Injury of right Achi lles tendon, subsequent encounter (Primary Dx); Difficulty walking Start: 08-10-2023 End: 08-10-2023 Nursing evaluation of patient and report Nurse Taras Darvin Khan Work Phone: [facility] Comment on above: Atrial fibrillation, unspecified type (HCC) (Primary Dx) Start: 08-06-2023 End: 08-06-2023 Patient encounter procedure Rickey Woodruff DPM Work Phone: [facility] Comment on above: Injury of right Achi lles tendon, subsequent encounter (Primary Dx) Start: 08-03-2023 ambulatory Ryan hein APRN.WAFFLE MACHINE OPERATOR Work Phone: [facility] Comment on above: INR Start: 08-03-2023 E-mail encounter fro m caregiver Ryan Edwards APRN.WAFFLE MACHINE OPERATOR Work Phone: [facility] Start: 08-03-2023 End: 08-03-2023 Nursing evaluation of patient and report Nurse Taras Darvin Khan Work Phone: [facility] Comment on above: Atrial fibrillation, unspecified type (HCC) (Primary Dx) Start: 07-30-2023 End: 07-30-2023 Nursing evaluation of patient and report Nurse Taras Darvin Lewisi Work Phone: [facility] Comment on above: Atrial fibrillation, unspecified type (HCC) (Primary Dx) Start: 07-23-2023 End: 07-23-2023 Nursing evaluation of patient and report Nurse Taras Darvin Khan Work Phone: [facility] Comment on above: Atrial fibrillation, unspecified type (HCC) (Primary Dx) Start: 07-20-2023 Telephone encounter Ryan Edwards APRN.WAFFLE MACHINE OPERATOR Work Phone: [facility] Comment on above: Electronic Communica tion (Medical clearance form for endoscopy. ) Start: 07-16-2023 Telephone encounter Ryan Edwards APRN.WAFFLE MACHINE OPERATOR Work Phone: [facility] Comment on above: Medication Question Start: 07-16-2023 End: 07-16-2023 Nursing evaluation of patient and report Nurse Intm Ag [place] Work Phone: [facility] Comment on above: Atrial fibrillation, unspecified type (HCC) (Primary Dx) Start: 07-09-2023 End: 07-09-2023 Patient encounter procedure Rickey Woodruff DPM Work Phone: [facility] Comment on above: Injury of right Achi lles tendon, subsequent encounter (Primary Dx) Start: 07-08-2023 Telephone encounter Ryan Edwards APRN.WAFFLE MACHINE OPERATOR Work Phone: [facility] Comment on above: Orders (Handicap par allan placard ) Start: 07-06-2023 End: 07-06-2023 Nursing evaluation of patient and report Nurse Intm Ag [place] Work Phone: [facility] Comment on above: Atrial fibrillation, unspecified type (HCC) (Primary Dx) Start: 07-01-2023 End: 07-01-2023 Nursing evaluation of patient and report Nurse Intm Ag [place] Work Phone: [facility] Comment on above: Atrial fibrillation, unspecified type (HCC) (Primary Dx) Start: 06-29-2023 ambulatory Ryan hein APRN.WAFFLE MACHINE OPERATOR Work Phone: [facility] Comment on above: INR instructions Start: 06-29-2023 E-mail encounter fro m caregiver Ryan Edwards APRN.WAFFLE MACHINE OPERATOR Work Phone: [facility] Start: 06-29-2023 End: 06-29-2023 Nursing evaluation of patient and report Nurse Intm Ag [place] Work Phone: [facility] Comment on above: Atrial fibrillation, unspecified type (HCC) (Primary Dx) Start: 06-25-2023 End: 06-25-2023 Patient encounter procedure Rickey Woodruff DPM Work Phone: [facility] Comment on above: Injury of right Achi lles tendon, subsequent encounter (Primary Dx); Acute right ankle pain Start: 06-22-2023 End: 06-22-2023 Nursing evaluation of patient and report Nurse Intm [facility] Work Phone: [facility] Comment on above: Atrial fibrillation, unspecified type (HCC) (Primary Dx) Start: 06-05-2023 End: 06-05-2023 ambulatory TESTING LEAD-C Ryan Edwards TESTING LEAD Work Phone: [facility] Work Phone: Start: 06-05-2023 End: 06-05-2023 Admission to same day surgery center TESTING LEAD-C Ryan Edwards TESTING LEAD Work Phone: [facility] Start: 06-05-2023 End: 06-05-2023 Patient encounter procedure TESTING LEAD-Ladan Edwards TESTING LEAD Work Phone: [facility] Work Phone: Start: 06-05-2023 Non-patient / Non-visit TESTING LEAD-Ladan Edwards TESTING LEAD Work Phone: [facility] Work Phone: Start: 05-07-2023 End: 05-07-2023 Patient encounter procedure Ryan Edwards APRN.WAFFLE MACHINE OPERATOR Work Phone: [facility] Comment on above: Cellulitis of left u pper extremity (Primary Dx); Septic bursitis of elbow, left; Atrial fibrillation, unspecified type (HCC) Start: 05-05-2023 ambulatory Katya Ortiz RN [facility] Start: 05-04-2023 Telephone encounter Penny hankins MD Work Phone: [facility] Start: 05-01-2023 ambulatory Katya Ortiz RN [facility] Start: 04-28-2023 Telephone encounter Ryan Edwards APRN.BARBIE Work Phone: [facility] Comment on above: Orders Start: 04-20-2023 Preprocedural examination done Rickey Woodruff DPM Work Phone: [facility] Work Phone: Start: 04-16-2023 End: 04-16-2023 Patient encounter procedure Ryan Edwards APRN.BARBIE Work Phone: [facility] Comment on above: Preoperative general physical examination (Primary Dx); Acute right ankle pain; Injury of right Achilles tendon, subsequent encounter; Olecranon bursitis, left elbow Start: 04-16-2023 End: 04-16-2023 Physical examination Ryan Edwards APRN.WAFFLE MACHINE OPERATOR Work Phone: [facility] Work Phone: Start: 04-15-2023 End: 04-15-2023 Orders Only Rickey Woodruff DPM Work Phone: [facility] Comment on above: Injury of right Achi lles tendon, initial encounter (Primary Dx) Injury of right Achi lles tendon, subsequent encounter (Primary Dx); Acute right ankle pain Start: 04-02-2023 End: 04-02-2023 Subsequent hospital visit by physician Earl Llanes (1.5t) [facility] Comment on above: Injury of right Achi lles tendon, initial encounter [S86.001A] Start: 04-02-2023 End: 04-02-2023 Patient encounter procedure Rickey Woodruff DPM Work Phone: [facility] Comment on above: Injury of right Achi lles tendon, initial encounter (Primary Dx); Acute right ankle pain Start: 03-31-2023 ambulatory Libby Barkley MA [place] [facility] Start: 03-25-2023 ambulatory Libby Barkley MA [place] [facility] Start: 03-11-2023 End: 03-11-2023 Patient encounter procedure Ryan Edwards APRN.CNP Work Phone: [facility] Comment on above: Atrial fibrillation, unspecified type (HCC) (Primary Dx); Erectile dysfunction, unspecified erectile dysfunction type; Elevated prostate specific antigen (PSA) Start: 03-02-2023 Refill Ryan hein APRN.WAFFLE MACHINE OPERATOR Work Phone: [facility] Comment on above: Refill Request Start: 03-02-2023 End: 03-02-2023 Nursing evaluation of patient and report Nurse Taras Khan Work Phone: [facility] Comment on above: Atrial fibrillation, unspecified type (HCC) (Primary Dx) Start: 02-10-2023 End: 02-10-2023 Patient encounter procedure Ryan Edwards APRN.WAFFLE MACHINE OPERATOR Work Phone: [facility] Comment on above: Acute right ankle pa in (Primary Dx); Atrial fibrillation, unspecified type (HCC) Start: 02-04-2023 ambulatory [facility] Comment on above: ED outreach (ED outr [facility] /02/01/2023 ) Start: 01-26-2023 Refill Ryan hein APRN.WAFFLE MACHINE OPERATOR Work Phone: [facility] Comment on above: Refill Request Start: 01-26-2023 Telephone encounter Ryan Edwards APRN.WAFFLE MACHINE OPERATOR Work Phone: [facility] Comment on above: Results Start: 01-26-2023 End: 01-26-2023 Nursing evaluation of patient and report Nurse Taras Khan Work Phone: [facility] Comment on above: Atrial fibrillation, unspecified type (HCC) (Primary Dx) Start: 01-24-2023 Refill Stan ledesma MD Work Phone: Urology Comment on above: Refill Request Start: 01-05-2023 Telephone encounter Ryan Edwards APRN.WAFFLE MACHINE OPERATOR Work Phone: [facility] Comment on above: Lab Orders Start: 12-29-2022 End: 12-29-2022 Nursing evaluation of patient and report Nurse Taras Khan Work Phone: [facility] Comment on above: Atrial fibrillation, unspecified type (HCC) (Primary Dx) Start: 12-15-2022 End: 12-15-2022 Nursing evaluation of patient and report Nurse Taras Khan Work Phone: [facility] Comment on above: Atrial fibrillation, unspecified type (HCC) (Primary Dx) Start: 12-08-2022 End: 12-08-2022 Nursing evaluation of patient and report Nurse Taras Khan Work Phone: [facility] Comment on above: Atrial fibrillation, unspecified type (HCC) (Primary Dx) Start: 12-04-2022 End: 12-04-2022 Patient encounter procedure Ileana Quiroz MD, PhD Work Phone: [facility] Comment on above: Hx of retinal detach ment (Primary Dx) Refill Request Start: 11-24-2022 End: 11-24-2022 Nursing evaluation of patient and report Nurse Taras Khan Work Phone: [facility] Comment on above: Atrial fibrillation, unspecified type (HCC) (Primary Dx) Start: 11-20-2022 End: 11-20-2022 Nursing evaluation of patient and report Nurse Taras Khan Work Phone: [facility] Comment on above: Atrial fibrillation, unspecified type (HCC) (Primary Dx) Start: 11-05-2022 Chart abstracting Ryan solomon APRN.WAFFLE MACHINE OPERATOR Work Phone: [facility] Start: 10-22-2022 End: 10-22-2022 Nursing evaluation of patient and report Nurse Taras Khan Work Phone: [facility] Comment on above: Atrial fibrillation, unspecified type (HCC) (Primary Dx) Start: 10-15-2022 Telephone encounter Ryan Edwards APRN.WAFFLE MACHINE OPERATOR Work Phone: [facility] Comment on above: Patient Question Start: 10-12-2022 Refill Ryan hein NON DESTRUCTIVE TESTING ENGINEER.WAFFLE MACHINE OPERATOR Work Phone: [facility] Comment on above: Refill Request Start: 09-26-2022 Encounter for preprocedural cardiovascular examination Enid Andrews [facility] Start: 09-23-2022 Telephone encounter Ryan Edwards APRN.CNP Work Phone: [facility] Comment on above: Results Start: 09-23-2022 End: 09-23-2022 Nursing evaluation of patient and report Nurse Taras Khan Work Phone: [facility] Comment on above: Atrial fibrillation, unspecified type (HCC) (Primary Dx) Start: 09-19-2022 ambulatory Enid Andrews Facility:[facility] Start: 09-19-2022 Non-patient / Non-visit No [facility] Start: 09-19-2022 End: 09-19-2022 ambulatory No [facility] Physician [facility] Work Phone: Start: 09-19-2022 End: 09-19-2022 Patient encounter procedure No [facility] Start: 09-18-2022 End: 09-18-2022 Nursing evaluation of patient and report Nurse Taras Khan Work Phone: [facility] Comment on above: Atrial fibrillation, unspecified type (HCC) (Primary Dx) Start: 09-16-2022 End: 09-16-2022 Patient encounter procedure Ryan Edwards APRN.WAFFLE MACHINE OPERATOR Work Phone: [facility] Comment on above: Preoperative general physical examination (Primary Dx); Atrial fibrillation, unspecified type (HCC); Vitamin D deficiency; Screening for deficiency anemia; Encounter for screening for diabetes mellitus; Screening for lipid disorders; Screening for thyroid disorder Start: 09-16-2022 End: 09-16-2022 Physical examination Ryan Edwards APRN.CNP Work Phone: [facility] Start: 09-08-2022 End: 09-08-2022 ambulatory Enid Andrews Facility:[facility] Start: 09-08-2022 End: 09-08-2022 Admission to same day surgery center No Primary Care Physician [facility] Start: 09-08-2022 End: 09-08-2022 Patient encounter procedure No Primary Care Physician [facility] Start: 08-27-2022 ambulatory No Primary Car e Physician Facility:[facility] Start: 08-27-2022 Patient encounter status No Primary Care Physician [facility] Start: 08-27-2022 Non-patient / Non-visit No Anthony elder Care Physician [facility] Start: 08-25-2022 Orders Only Shan Soto MD Work Phone: [facility] Comment on above: Umbilical hernia wit hout obstruction or gangrene (Primary Dx) Start: 08-04-2022 End: 08-04-2022 Patient encounter procedure Shan Soto MD Work Phone: [facility] Comment on above: Umbilical hernia wit hout obstruction and without gangrene (Primary Dx); Atrial fibrillation, unspecified type (HCC) Start: 08-04-2022 End: 08-04-2022 Nursing evaluation of patient and report Nurse Intm Ag [place] Work Phone: [facility] Comment on above: Atrial fibrillation, unspecified type (HCC) (Primary Dx) Start: 07-28-2022 End: 07-28-2022 Nursing evaluation of patient and report Nurse Intm Ag [place] Work Phone: [facility] Comment on above: Atrial fibrillation, unspecified type (HCC) (Primary Dx) Start: 07-21-2022 End: 07-21-2022 Nursing evaluation of patient and report Nurse Intm Ag [place] Work Phone: [facility] Comment on above: Atrial fibrillation, unspecified type (HCC) (Primary Dx) Start: 07-16-2022 Telephone encounter Ryan Edwards APRN.CNP Work Phone: [facility] Comment on above: Results (INR) Start: 07-11-2022 End: 07-11-2022 Nursing evaluation of patient and report Nurse Famandrew Darvin Lewisi Work Phone: [facility] Comment on above: Atrial fibrillation, unspecified type (HCC) (Primary Dx) Start: 07-10-2022 End: 07-10-2022 Nursing evaluation of patient and report Nurse Clifford Darvin [place] Work Phone: [facility] Comment on above: Atrial fibrillation, unspecified type (HCC) (Primary Dx) Start: 06-26-2022 End: 06-26-2022 Patient encounter procedure Stan Tai MD Work Phone: [facility] Comment on above: Elevated prostate sp ecific antigen (PSA) (Primary Dx); BPH with obstruction/lower urinary tract symptoms Start: 06-23-2022 End: 06-23-2022 [facility] evaluation [facility] and [facility] Work Phone: [facility] Comment on above: Atrial fibrillation, unspecified type (HCC) (Primary Dx) Start: 06-11-2022 Telephone encounter Ryan Edwards APRN.WAFFLE MACHINE OPERATOR Work Phone: [facility] Comment on above: Results Start: 06-11-2022 End: 06-11-2022 Patient encounter procedure Ryan Edwards APRN.WAFFLE MACHINE OPERATOR Work Phone: [facility] Comment on above: Preoperative cardiov ascular examination (Primary Dx); Atrial fibrillation, unspecified type (HCC); Elevated PSA Start: 06-11-2022 End: 06-11-2022 Patient encounter status Ryan Edwards APRN.WAFFLE MACHINE OPERATOR Work Phone: [facility] Start: 06-09-2022 Refill Ryan hein APRN.WAFFLE MACHINE OPERATOR Work Phone: [facility] Comment on above: Patient Question Start: 06-06-2022 Telephone encounter Mehrdad Llanes MD Work Phone: [facility] Comment on above: Surgery Scheduled Start: 06-03-2022 End: 06-03-2022 Patient encounter procedure Mehrdad Llanes MD Work Phone: [facility] Comment on above: Elevated PSA (Primar y Dx); BPH without urinary obstruction Start: 06-02-2022 End: 06-02-2022 Patient encounter procedure Lorraine Rosa APRN.WAFFLE MACHINE OPERATOR Work Phone: [facility] Comment on above: Diastasis of rectus abdominis (Primary Dx); Umbilical hernia without obstruction or gangrene Start: 05-30-2022 Telephone encounter Stan Tai MD Work Phone: [facility] Comment on above: Results Start: 05-28-2022 End: 05-28-2022 Nursing evaluation of patient and report Nurse Intm Ag [place] Work Phone: [facility] Comment on above: Atrial fibrillation, unspecified type (HCC) (Primary Dx) Start: 05-27-2022 End: 05-27-2022 Subsequent hospital visit by physician Mri 1 [facility] (I-Stat/Lg Bore/3t) RADIO [facility] Comment on above: Encounter for observ ation for other suspected diseases and conditions ruled out [Z03.89] Start: 05-22-2022 End: 05-22-2022 Patient encounter procedure Kyrie Pardo MD Work Phone: [facility] Comment on above: Biceps muscle strain , right, initial encounter (Primary Dx) Start: 05-21-2022 Telephone encounter Kyrie Pardo MD Work Phone: [facility] Comment on above: Appointment Start: 05-20-2022 End: 05-20-2022 Patient encounter procedure Lorraine Rosa APRN.WAFFLE MACHINE OPERATOR Work Phone: [facility] Comment on above: Right arm pain (Prim pamela Dx); Biceps muscle tear, right, initial encounter Start: 05-14-2022 End: 05-14-2022 Nursing evaluation of patient and report Nurse Intm Ag [place] Work Phone: [facility] Comment on above: Atrial fibrillation, unspecified type (HCC) (Primary Dx) Start: 05-09-2022 End: 05-09-2022 Nursing evaluation of patient and report Nurse Jelaniandrew Darvin Khan Work Phone: [facility] Comment on above: Atrial fibrillation, unspecified type (HCC) (Primary Dx) Start: 05-07-2022 End: 05-07-2022 Nursing evaluation of patient and report Nurse Cliffordgerard Khan Work Phone: [facility] Comment on above: Atrial fibrillation, unspecified type (HCC) (Primary Dx) Start: 04-07-2022 End: 04-07-2022 Nursing evaluation of patient and report Nurse Cliffordgerard Khan Work Phone: [facility] Comment on above: Atrial fibrillation, unspecified type (HCC) (Primary Dx) Start: 03-28-2022 End: 03-28-2022 Nursing evaluation of patient and report Nurse Jelaniandrew Darvin Khan Work Phone: [facility] Comment on above: Atrial fibrillation, unspecified type (HCC) (Primary Dx) Start: 03-27-2022 End: 03-27-2022 Patient encounter procedure Stan Tai MD Work Phone: [facility] Comment on above: Encounter for observ ation for other suspected diseases and conditions ruled out (Primary Dx); Elevated PSA Start: 03-17-2022 End: 03-17-2022 Nursing evaluation of patient and report Nurse Cliffordgerard Khan Work Phone: [facility] Comment on above: Atrial fibrillation, unspecified type (HCC) (Primary Dx) Start: 03-10-2022 End: 03-10-2022 Refill Ryan Edwards APRN.CNP Work Phone: [facility] Comment on above: Refill Request Atrial fibrillation, unspecified type (HCC) (Primary Dx) Start: 03-06-2022 End: 03-06-2022 Nursing evaluation of patient and report Nurse Taras Darvin Lewisi Work Phone: [facility] Comment on above: Atrial fibrillation, unspecified type (HCC) (Primary Dx) Start: 02-26-2022 End: 02-26-2022 Patient encounter procedure Ryan Edwards APRN.WAFFLE MACHINE OPERATOR Work Phone: [facility] Comment on above: Encounter for medica l examination to establish care (Primary Dx); Atrial fibrillation, unspecified type (HCC); Erectile dysfunction, unspecified erectile dysfunction type; Elevated PSA; Need for shingles vaccine Start: 02-26-2022 End: 02-26-2022 Patient encounter status Ryan Edwards APRN.WAFFLE MACHINE OPERATOR Work Phone: [facility] Start: 02-11-2022 End: 02-15-2022 ambulatory PHYSICIAN NO [facility] Start: 01-21-2022 End: 01-25-2022 ambulatory PROVIDER NOT IN SYSTEM [facility] Procedures Date Procedure Procedure Detail Performing Clinician Start: 10-31-2024 Prothrombin time [facility] Start: 09-19-2024 HEARING TEST/AUDIOGRAM Ezio Richardson PATRICIA Work Phone: Start: 08-29-2024 Prothrombin time [facility] Start: 08-29-2024 Lipid 1996 panel - S ciara or Plasma Nurse [place] Work Phone: Start: 08-01-2024 Prothrombin time [facility] Start: 07-25-2024 Prothrombin time [facility] Pr [facility] Start: 05-25-2024 Prothrombin time [facility] Pr [facility]ider Start: 03-14-2024 Prothrombin time [facility] Pr [facility]ider Start: 02-22-2024 Prothrombin time [facility] Start: 01-11-2024 Prothrombin time [facility] Start: 09-25-2023 Arthrocentesis aspir &/inj interm jt/burs w/o us Pancho Pino MD Work Phone: Start: 09-24-2023 Radex wrist complete minimum 3 views Pancho Pino MD Work Phone: Start: 09-14-2023 Prothrombin time You Edwards APRN.WAFFLE MACHINE OPERATOR Work Phone: Start: 09-07-2023 Colonoscopy Ryan solomon APRN.WAFFLE MACHINE OPERATOR Work Phone: Start: 08-10-2023 Prothrombin time [facility] Start: 07-30-2023 Prothrombin time [facility] Pr [facility] Start: 07-23-2023 Prothrombin time [facility] Pr [facility] Start: 06-29-2023 Prothrombin time [facility] Start: 05-07-2023 Prothrombin time You Edwards APRN.WAFFLE MACHINE OPERATOR Work Phone: Start: 04-02-2023 Mri any jt lower ext rem w/o contrast matrl Carmine Lopezreddy DPM Work Phone: Start: 03-11-2023 Prothrombin time You Edwards APRN.WAFFLE MACHINE OPERATOR Work Phone: Start: 03-02-2023 Prothrombin time [facility] Start: 02-10-2023 Prothrombin time You Edwards APRN.WAFFLE MACHINE OPERATOR Work Phone: Start: 01-26-2023 Prothrombin time [facility] Start: 01-26-2023 Lipid 1996 panel - S ciara or Plasma Ryan Edwards APRN.WAFFLE MACHINE OPERATOR Work Phone: Start: 12-29-2022 Prothrombin time [facility] Start: 12-15-2022 Prothrombin time [facility] Start: 12-08-2022 Prothrombin time [facility] Start: 12-04-2022 Computerized ophthal simone imaging retina Ileana Quiroz MD, PhD Work Phone: Start: 11-05-2022 INR in Platelet poor plasma by Coagulation assay [facility] Provider Start: 09-23-2022 Prothrombin time [facility] Start: 09-19-2022 Cardiovascular stres s test using pharmacologic stress agent No Primary Care Physician Start: 09-16-2022 Prothrombin time You Edwards APRN.WAFFLE MACHINE OPERATOR Work Phone: Start: 08-04-2022 Prothrombin time [facility] Start: 07-21-2022 Prothrombin time [facility] Start: 07-15-2022 PROTHROMBIN TIME/PT [facility] Provider Start: 07-11-2022 Prothrombin time [facility] Pr [facility]ider Start: 06-11-2022 Prothrombin time You Edwards APRN.WAFFLE MACHINE OPERATOR Work Phone: Start: 05-28-2022 Prothrombin time [facility] [...] ovider Start: 02-26-2022 Prothrombin time You Edwards APRN.WAFFLE MACHINE OPERATOR Work Phone: Start: 06-09-2016 Colonoscopy Ryan solomon APRN.WAFFLE MACHINE OPERATOR Work Phone: Plan of Treatment Date Care Activity Detail Author Start: 06-09-2032 Urine microalbumin profile [facility] Start: 2030 RSV Vaccine (1 - 1-d ose 75+ series) RSV Vaccine (1 - 1-dose 75+ series) [facility] Start: 08-29-2029 Lipid panel Lipid Screening [facility] Start: 01-04-2029 Prostate specific antigen measurement Prostate Cancer Screening Discussion [facility] Start: 01-27-2028 Lipid 1996 panel - Serum or Plasma Lipid Screening [facility] Start: 01-27-2028 Lipid panel Lipid Screening [facility] Start: 01-27-2028 LIPID SCREEN LIPID SCREEN [facility] Start: 12-31-2027 PROSTATE CANCER SCREENING DISCUSSION PROSTATE CANCER SCREENING DISCUSSION [facility] Start: 12-31-2027 Prostate specific antigen measurement Prostate Cancer Screening Discussion [facility] Start: 11-07-2027 Diabetes Screening Diabetes Screenin g [facility] Start: 09-19-2027 LIPID SCREEN LIPID SCREEN [facility] Start: 08-30-2027 Diabetes Screening Diabetes Screenin g [facility] Start: 09-06-2026 Screening for malign ant neoplasm of colon [facility] Start: 06-09-2026 Colonoscopy COLONOSCOPY [facility] Start: 06-09-2026 COLORECTAL CANCER SCREENING COLORECTAL CANCER SCREENING [facility] Start: 06-09-2026 Screening for malign ant neoplasm of colon [facility] Start: 04-30-2026 Diabetes Screening Diabetes Screenin g [facility] Start: 04-28-2026 Diabetes Screening Diabetes Screenin g [facility] Start: 04-22-2026 Diabetes Screening Diabetes Screenin g [facility] Start: 10-04-2025 Annual PCP Team Account Resolution Specialist jake Disease Visit Annual PCP Team Chronic Disease Visit [facility] Start: 10-04-2025 Anxiety Screening Anxiety Screening [facility] Comment on above: Postponed from 03/03 (Postponed To Appropriate Date) Start: 10-04-2025 BP Controlled (<130/80) BP Controlle d (<130/80) [facility] Start: 10-04-2025 Depression Screening Depression Scre ening [facility] Comment on above: Postponed from 03/03 (Postponed To Appropriate Date) Start: 10-04-2025 Pneumococcal Vaccine : 50+ (2 of 2 - PCV) Pneumococcal Vaccine: 50+ (2 of 2 - PCV) [facility] Comment on above: Postponed from 05/08 (Declined at this time) Start: 10-04-2025 RSV Vaccine (1 - Ris k 60-74 years 1-dose series) RSV Vaccine (1 - Risk 60-74 years 1-dose series) [facility] Comment on above: Postponed from 03/03 (Declined at this time) Start: 09-18-2025 DIABETES SCREEN DIABETES SCREEN [facility] Start: 09-18-2025 [facility] Start: 06-11-2025 [facility] Start: 04-06-2025 End: 04-06-2025 Patient encounter procedure 04/06/2025 8:20 AM EST Office Visit [facility] [address] [place] [address] Ryan Edwards, NON DESTRUCTIVE TESTING ENGINEER.[facility] [address] [place] [address] WAE (per CN) [facility] Comment on above: WAE (per CN) Start: 01-24-2025 End: 01-24-2025 Patient encounter procedure 01/24/2025 1:30 PM EDT Office Visit Urology [address] [address] Stan Tai Jr., MD [address] [place] [address] 1 yr follow up Urology Comment on above: 1 yr follow up Start: 01-16-2025 Influenza vaccination Influenz a Vaccine (Season Ended) [facility] Start: 01-03-2025 End: 01-03-2025 Patient encounter procedure 01/03/2025 9:00 AM EDT Office Visit Urology [address] [address] Stan Tai Jr., MD [address] [place] [address] 1 yr follow up Urology Comment on above: 1 yr follow up Start: 01-02-2025 End: 01-02-2025 Patient encounter procedure 01/02/2025 9:45 AM EDT Office Visit [facility] [address] [place] [address] Pancho Pino MD [address] [facility] [address] [place] [address] PO LEFT WRIST PALMERIS LONGUS TO LEFT THUMB EXTENSOR POLLICIS LONGUS TENDON RUPTURE (12/30/24) [facility] Comment on above: PO LEFT WRIST COLIN IS LONGUS TO LEFT THUMB EXTENSOR POLLICIS LONGUS TENDON RUPTURE (12/30/24) Start: 12-01-2024 End: 12-01-2024 Patient encounter procedure Ophthalmology Comment on above: Return in about 1 ye ar (around 12/02/2024) for DFE/ OCT both eyes- full exam. * 1 year (around 11/15) for DFE/ OCT both eyes- full exam. Start: 11-23-2024 End: 11-23-2024 Patient encounter procedure 11/23/2024 10:00 AM EDT Office Visit [address] [address] Ryan Edwards APRN.WAFFLE MACHINE OPERATOR [address] [place] [address] TCM CC Cruz D/C 11/06/24- Near syncope, SVT [facility] Comment on above: TCM CC Cruz D/C - Near syncope, SVT Start: 11-17-2024 End: 11-17-2024 Nursing evaluation of patient and report 11/17/2024 8:20 AM EDT Nurse Visit [address] [facility] Comment on above: INR Start: 11-17-2024 ambulatory Ambulatory Facility:[facility] Start: 11-11-2024 Evaluation of diagnostic study results [facility] Start: 11-09-2024 End: 11-09-2024 Patient encounter procedure [facility] Comment on above: LT THUMB F/U POST OP SX 09/02/24 PER KERRY Start: 11-09-2024 End: 11-09-2024 ambulatory 11/09/2024 8:30 AM EDT OT/PT/Speech Visit [facility] [address] [place] [address] Andrés Ott, OTR/L [address] [place] [address] $35 copay [facility] Comment on above: $35 copay Start: 11-03-2024 End: 11-03-2024 Nursing evaluation of patient and report 11/03/2024 8:20 AM EDT Nurse Visit [address] [facility] Comment on above: INR Start: 11-02-2024 End: 11-02-2024 ambulatory 11/02/2024 11:30 AM EDT OT/PT/Speech Visit [facility] [address] [place] [address] KoutrAndrés samuels, OTR/L [address] [place] [address] $35 copay [facility] Comment on above: $35 copay Start: 10-31-2024 End: 10-31-2024 Nursing evaluation of patient and report 10/31/2024 8:20 AM EDT Nurse Visit [address] [facility] Comment on above: nurse Start: 10-28-2024 End: 10-28-2024 ambulatory 10/28/2024 9:15 AM EDT OT/PT/Speech Visit [facility] [address] [place] [address] Andrés Ott, OTR/L 1 [place] [address] $35 copay [facility] Comment on above: $35 copay Start: 10-12-2024 End: 10-12-2024 ambulatory 10/12/2024 11:30 AM EDT OT/PT/Speech Visit [facility] [address] [place] [address] Andrés Ott, OTR/L 1 [place] [address] $35 copay [facility] Comment on above: $35 copay Start: 10-12-2024 End: 10-12-2024 Patient encounter procedure 10/12/2024 11:00 AM EDT Office Visit [facility] [address] [place] [address] Wiliam George PA-C [address] [facility] [address] [place], [place] [id number] 4 wk f/u lt thumb [facility] Comment on above: 4 wk f/u lt thumb Start: 10-04-2024 End: 10-04-2024 Patient encounter procedure 10/04/2024 9:20 AM EDT Office Visit [address] [address] Ryan Edwards, NON DESTRUCTIVE TESTING ENGINEER.WAFFLE MACHINE OPERATOR [address] [place] [address] [facility] Comment on above: Medicare wellness Start: 09-28-2024 End: 09-28-2024 Nursing evaluation of patient and report 09/28/2024 8:40 AM EDT Nurse Visit [facility] [address] [place] [address] PT/INR [facility] Comment on above: PT/INR Start: 09-19-2024 End: 09-19-2024 Patient encounter procedure 09/19/2024 10:00 AM EDT Office Visit Audiology [address] [address] Ezio Richardson, AUD [address] [place] [address] audiogram Audiology Comment on above: audiogram Start: 09-15-2024 End: 09-15-2024 ambulatory 09/15/2024 9:45 AM EDT OT/PT/Speech Visit [facility] [address] [place] [address] Andrés Ott, OTR/L 1 [place], [place] [id number] $35 copay [facility] Comment on above: $35 copay Start: 09-14-2024 End: 09-14-2024 Patient encounter procedure 09/14/2024 8:45 AM EDT Office Visit [facility] [address] [place] [address] Wiliam George PA-Ladan [address] [facility] [address] [place], [place] [id number] po 09/02/24) [facility] Comment on above: po 09/02/24) Start: 09-12-2024 End: 09-12-2024 Patient encounter procedure 09/12/2024 1:30 PM EDT Office Visit Audiology [address] [facility] [address] [place] [address] Ezio Richardson, AUD [address] [place] [address] audiogram Audiology Comment on above: audiogram Start: 09-06-2024 End: 09-06-2024 ambulatory 09/06/2024 8:30 AM EDT OT/PT/Speech Visit [facility] [address] [place] [address] Gely Marrero OTR/L [address] [place] [address] $35 L hand [facility] Comment on above: $35 L hand Start: 09-02-2024 End: 09-02-2024 Admission to same day surgery center 09/02/2024 10:30 AM EDT - 09/02/2024 12:00 PM EDT Surgery LD SURGERY [address] [place] [address] Pancho Pino MD [address] [address] TRANSPLANT OR TRANFER TENDON FLEXOR OR EXTENSOR FOREARM AND/OR WRIST SINGLE (LEFT WRIST PALMERIS LONGUS TO LEFT THUMB EXTENSOR POLLICIS LONGUS TENDON RUPTURE) [facility] Comment on above: TRANSPLANT OR TRANFE R TENDON FLEXOR OR EXTENSOR FOREARM AND/OR WRIST SINGLE (LEFT WRIST PALMERIS LONGUS TO LEFT THUMB EXTENSOR POLLICIS LONGUS TENDON RUPTURE) Start: 09-02-2024 Subsequent hospital visit by physician 09/02/2024 10:30 AM EDT Hospital Encounter [facility] SURG[facility] [address] [place] [address] Pancho Pino MD [address] [facility] [address] [place] [address] Left hand pain [M79.642] [facility] Comment on above: Left hand pain [M79. 642] Start: 09-02-2024 End: 09-02-2024 Tdn trnsplj/tr flxr/xtnsr f/arm&/wrst 1 ea tdn TRANSPLANT OR TRANFER TENDON FLEXOR OR EXTENSOR FOREARM AND/OR WRIST SINGLE Left hand pain 09/02/2024 10:30 AM EDT LD OR Start: 08-29-2024 End: 08-29-2024 Nursing evaluation of patient and report 08/29/2024 8:40 [place] [address] PT/INR [facility] Comment on above: PT/INR Start: 08-26-2024 End: 11-25-2024 MARA BY IFA WITH REFLEX MARA BY IFA WITH REFLEX Lab Routine Crepitant synovitis of wrist, left Expected: 08/26/2024, Expires: 11/25/2024 [facility] Comment on above: Expected: 08/26/2024 , Expires: 11/25/2024 Start: 08-26-2024 End: 11-25-2024 C reactive protein [Mass/volume] in Serum or Plasma C-REACTIVE PROTEIN Lab Routine Crepitant synovitis of wrist, left Expected: 08/26/2024, Expires: 11/25/2024 [facility] Comment on above: Expected: 08/26/2024 , Expires: 11/25/2024 Start: 08-26-2024 End: 11-25-2024 Cyclic citrullinated peptide IgG Ab [Units/volume] in Serum or Plasma CCP ANTIBODY IGG Lab Routine Crepitant synovitis of wrist, left Expected: 08/26/2024, Expires: 11/25/2024 [facility] Comment on above: Expected: 08/26/2024 , Expires: 11/25/2024 Start: 08-26-2024 End: 11-25-2024 Erythrocyte sedimentation rate SEDIMENTATION RATE, WESTERGREN Lab Routine Crepitant synovitis of wrist, left Expected: 08/26/2024, Expires: 11/25/2024 [facility] Comment on above: Expected: 08/26/2024 , Expires: 11/25/2024 Start: 08-26-2024 End: 11-25-2024 Rheumatoid factor [Units/volume] in Serum or Plasma RHEUMATOID FACTOR Lab Routine Crepitant synovitis of wrist, left Expected: 08/26/2024, Expires: 11/25/2024 [facility] Comment on above: Expected: 08/26/2024 , Expires: 11/25/2024 Start: 08-26-2024 End: 09-24-2025 XR Hand - left PA and Lateral and Oblique [facility] Work Phone: Comment on above: Expected: 08/26/2024 , Expires: 09/24/2025 Start: 08-26-2024 End: 08-26-2024 Patient encounter procedure 08/26/2024 8:30 AM EDT Office Visit [facility] [address] [place], [place] [id number] Pancho Pino MD [address] [facility] [address] [place] [address] Est Left thumb pain -LG [facility] Comment on above: Est Left thumb pain -LG Start: 08-23-2024 End: 11-22-2024 CBC panel - Blood by Automated count COMPLETE BLOOD COUNT Lab Routine Primary hypertension Screening for deficiency anemia Expected: 08/23/2024, Expires: 11/22/[address] [facility] Work Phone: Comment on above: Expected: 08/23/2024 , Expires: 11/22/2024 Start: 08-23-2024 End: 11-22-2024 Comprehensive metabolic 2000 panel - Serum or Plasma COMPREHENSIVE METABOLIC PANEL Lab Routine Primary hypertension Encounter for screening for diabetes mellitus Expected: 08/23/2024, Expires: 11/22/2024 [facility] Comment on above: Expected: 08/23/2024 , Expires: 11/22/2024 Start: 08-23-2024 End: 11-22-2024 Lipid 1996 panel - Serum or Plasma LIPID PANEL, FASTING Lab Routine Screening for lipid disorders Expected: 08/23/2024, Expires: 11/22/2024 [facility] Comment on above: Expected: 08/23/2024 , Expires: 11/22/2024 Start: 08-23-2024 End: 11-22-2024 PSA/PROSTATE SPECIFIC ANTIGEN SCREENING PSA/PROSTATE SPECIFIC ANTIGEN SCREENING Lab Routine Screening for malignant neoplasm of prostate Expected: 08/23/2024, Expires: 11/22/2024 [facility] Comment on above: Expected: 08/23/2024 , Expires: 11/22/2024 Start: 08-23-2024 End: 11-22-2024 Thyrotropin [Units/volume] in Serum or Plasma THYROID STIMULATING HORMONE Lab Routine Screening for thyroid disorder Expected: 08/23/2024, Expires: 11/22/2024 [facility] Comment on above: Expected: 08/23/2024 , Expires: 11/22/2024 Start: 08-15-2024 End: 08-15-2024 Nursing evaluation of patient and report 08/15/2024 8:40 AM EDT Nurse Visit [address] [address] PT/INR [facility] Comment on above: PT/INR Start: 07-25-2024 End: 07-25-2024 Nursing evaluation of patient and report 07/25/2024 8:40 AM EDT Nurse Visit [address] [address] PT/INR [facility] Comment on above: PT/INR Start: 06-27-2024 End: 06-27-2024 Nursing evaluation of patient and report 06/27/2024 9:40 AM EST Nurse Visit [address] [address] PT/INR [facility] Comment on above: PT/INR Start: 05-23-2024 End: 05-23-2024 Nursing evaluation of patient and report 05/23/2024 9:20 AM EST Nurse Visit [address] [address] PT/INR [facility] Comment on above: PT/INR Start: 04-11-2024 End: 04-11-2024 Nursing evaluation of patient and report 04/11/2024 8:40 AM EST Nurse Visit [address] [facility] Comment on above: INR Start: 04-07-2024 End: 04-07-2024 Patient encounter procedure 04/07/2024 8:45 AM EST Office Visit [facility] [address] [place] [address] Ileana Quiroz MD, PhD [address] [place] [address] large floater moving od-add per dr quiroz Ophthalmology Comment on above: large floater moving od-add per dr quiroz Start: 03-11-2024 Pneumococcal Vaccine : 65+ (2 - PCV) Pneumococcal Vaccine: 65+ (2 - PCV) [facility] Comment on above: Postponed from 05/08 (Declined at this time) Start: 03-11-2024 Pneumococcal Vaccine : 65+ (2 of 2 - PCV) Pneumococcal Vaccine: 65+ (2 of 2 - PCV) [facility] Comment on above: Postponed from 05/08 (Declined at this time) Start: 02-29-2024 End: 02-29-2024 Nursing evaluation of patient and report 02/29/2024 9:20 AM EDT Nurse Visit [address] [address] PT/INR [facility] Comment on above: PT/INR Start: 01-17-2024 Influenza vaccination [facility] Start: 01-11-2024 End: 01-11-2024 Nursing evaluation of patient and report 01/11/2024 8:20 AM EDT Nurse Visit [address] [facility] Comment on above: pt inr Start: 01-05-2024 End: 04-05-2024 Prostate specific Ag [Mass/volume] in Serum or Plasma [facility] Work Phone: Comment on above: Expected: 01/05/2024 , Expires: 04/05/2024 Start: 01-05-2024 End: 01-05-2024 Patient encounter procedure 01/05/2024 9:15 AM EDT Office Visit Urology [address] [address] Stan Tai Jr., MD [address] [place] [address] 6 month follow up, psa prior Urology Comment on above: 6 month follow up, p sa prior Start: 12-14-2023 End: 12-14-2023 Patient encounter procedure 12/14/2023 10:00 AM EDT Office Visit [facility] [address] [place] [address] Marcin Monet, OD [address] [place] [address] Monet for mrx-per dr quiroz Optometry Comment on above: See Dr Monet f or mrx-per dr quiroz Start: 12-09-2023 End: 12-09-2023 Nursing evaluation of patient and report 12/09/2023 9:20 AM EDT Nurse Visit [address] [address] PT/INR [facility] Comment on above: PT/INR Start: 12-03-2023 End: 12-03-2023 Patient encounter procedure 12/03/2023 8:45 AM EDT Office Visit [facility] [address] [place] [address] Ileana Quiroz MD, PhD [address] [place] [address] *DFE/no OCT both eyes- full exam Ophthalmology Comment on above: *DFE/no OCT both eye s- full exam Start: 11-18-2023 End: 11-18-2023 Nursing evaluation of patient and report 11/18/2023 9:20 AM EDT Nurse Visit [address] [address] f/u pt/inr [facility] Comment on above: f/u pt/inr Start: 11-15-2023 Influenza vaccination Influenza Vacc ine (#1) [facility] Comment on above: Postponed from 01/16 (Declined at this time) Start: 11-05-2023 End: 11-05-2023 Nursing evaluation of patient and report 11/05/2023 9:20 AM EDT Nurse Visit [address] [address] PT/INR [facility] Comment on above: PT/INR Start: 10-30-2023 End: 10-30-2023 Patient encounter procedure 10/30/2023 9:15 AM EDT Office Visit [facility] [address] [place] [address] Pancho Pino MD [address] [place], [place] [id number] follow up rt wrist [facility] Comment on above: follow up rt wrist Start: 10-22-2023 End: 10-22-2023 Nursing evaluation of patient and report 10/22/2023 8:20 AM EDT Nurse Visit [address] [address] 2 WK F/U INR RE-CK [facility] Comment on above: 2 WK F/U INR RE-CK Start: 09-28-2023 End: 09-28-2023 Nursing evaluation of patient and report 09/28/2023 9:20 AM EDT Nurse Visit [address] [address] PT/INR [facility] Comment on above: PT/INR Start: 09-25-2023 End: 09-25-2023 Patient encounter procedure 09/25/2023 9:00 AM EDT Office Visit [facility] [address] [place] [address] Pancho Pino MD [address] [place] [address] New Patient, ganglion cyst right wrist [facility] Comment on above: New Patient, ganglio n cyst right wrist Start: 09-18-2023 End: 09-18-2023 ambulatory 09/18/2023 11:30 AM EDT OT/PT/Speech Visit [facility] [address] [place] [address] Mike Peacock, PT [address] [place], [place] [id number] JUANI Mckay [facility] Comment on above: JUANI Mckay Start: 09-17-2023 End: 09-17-2023 Patient encounter procedure 09/17/2023 10:15 AM EDT Office Visit [facility] [address] [place], [place] [id number] Rickey Woodruff, FROY [address] [place], [place] [id number] R Achilles follow up [facility] Comment on above: R Achilles follow up Start: 09-14-2023 End: 09-14-2023 Nursing evaluation of patient and report 09/14/2023 9:40 AM EDT Nurse Visit [facility] [address] [place] [address] [facility] Comment on above: pt inr Start: 09-14-2023 End: 09-14-2023 Patient encounter procedure 09/14/2023 7:40 AM EDT Office Visit [address] [address] Ryan Edwards, NON DESTRUCTIVE TESTING ENGINEER.WAFFLE MACHINE OPERATOR [address] [place], [place] [id number] HTN [facility] Comment on above: HTN Start: 04-28-2023 End: 07-28-2023 Lipid 1996 panel - Serum or Plasma LIPID PANEL BASIC Lab Routine Elevated cholesterol Expected: 04/28/2023, Expires: 07/28/[address] [facility] Work Phone: Comment on above: Expected: 04/28/2023 , Expires: 07/28/2023 Start: 04-15-2023 End: 07-15-2023 Comprehensive metabolic 2000 panel - Serum or Plasma COMP METABOLIC PANEL Lab Routine Injury of right Achilles tendon, initial encounter Expected: 04/15/2023, Expires: 07/15/[address] [facility] Work Phone: Comment on above: Expected: 04/15/2023 , Expires: 07/15/2023 Start: 03-29-2023 Shingrix Vaccine (3 of 3) Shingrix Vaccine (3 of 3) [facility] Start: 02-26-2023 Pneumococcal Vaccine : 65+ (1 - PCV) Pneumococcal Vaccine: 65+ (1 - PCV) [facility] Comment on above: Postponed from 03/03 (Declined at this time) Start: 02-26-2023 PNEUMOCOCCAL: 65+ (1 - PCV) PNEUMOCOCCAL: 65+ (1 - PCV) [facility] Comment on above: Postponed from 03/03 (Declined at this time) Start: 01-16-2023 Influenza vaccination C [facility] Start: 01-05-2023 End: 03-07-2023 Lipid 1996 panel - Serum or Plasma LIPID PANEL BASIC Lab Routine Elevated cholesterol Expected: 01/05/2023, Expires: 03/07/[address] [facility] Work Phone: Comment on above: Expected: 01/05/2023 , Expires: 03/07/2023 Start: 12-24-2022 End: 02-23-2023 Prostate specific Ag [Mass/volume] in Serum or Plasma PSA/PROSTSPECAG DIAG Lab Routine Elevated prostate specific antigen (PSA) Expected: 12/24/2022, Expires: 02/23/[address] [facility] Work Phone: Comment on above: Expected: 12/24/2022 , Expires: 02/23/2023 Start: 11-14-2022 Influenza vaccination INFLUENZA (#1) [facility] Comment on above: Postponed from 01/16 (Declined at this time) Start: 10-27-2022 SHINGRIX VACCINE (2 of 3) SHINGRIX VACCINE (2 of 3) [facility] Start: 09-16-2022 End: 11-16-2022 25-hydroxyvitamin D3 [Mass/volume] in Serum or Plasma VITAMIN D 25 HYDROXY Lab Routine Vitamin D deficiency Expected: 09/16/2022, Expires: 11/16/[address] [facility] Work Phone: Comment on above: Expected: 09/16/2022 , Expires: 11/16/2022 Start: 09-16-2022 End: 11-16-2022 CBC panel - Blood by Automated count CBC Lab Routine Screening for deficiency anemia Expected: 09/16/2022, Expires: 11/16/[address] [facility] Work Phone: Comment on above: Expected: 09/16/2022 , Expires: 11/16/2022 Start: 09-16-2022 End: 11-16-2022 Comprehensive metabolic 2000 panel - Serum or Plasma COMP METABOLIC PANEL Lab Routine Encounter for screening for diabetes mellitus Expected: 09/16/2022, Expires: 11/16/[address] [facility] Work Phone: Comment on above: Expected: 09/16/2022 , Expires: 11/16/2022 Start: 09-16-2022 End: 11-16-2022 Lipid 1996 panel - Serum or Plasma LIPID PANEL BASIC Lab Routine Screening for lipid disorders Expected: 09/16/2022, Expires: 11/16/[address] [facility] Work Phone: Comment on above: Expected: 09/16/2022 , Expires: 11/16/2022 Start: 09-16-2022 End: 11-16-2022 Thyrotropin [Units/volume] in Serum or Plasma TSH BLD Lab Routine Screening for thyroid disorder Expected: 09/16/2022, Expires: 11/16/[address] [facility] Work Phone: Comment on above: Expected: 09/16/2022 , Expires: 11/16/2022 Start: 04-26-2022 End: 06-26-2022 Prostate specific Ag [Mass/volume] in Serum or Plasma PSA/PROSTSPECAG DIAG Lab Routine Elevated PSA Expected: 04/26/2022, Expires: 06/26/[address] [facility] Work Phone: Comment on above: Expected: 04/26/2022 , Expires: 06/26/2022 Start: 05-08-2021 Pneumococcal Vaccine : 50+ (2 of 2 - PCV) Pneumococcal Vaccine: 50+ (2 of 2 - PCV) [facility] Start: 05-08-2021 Pneumococcal Vaccine : 65+ (2 of 2 - PCV) Pneumococcal Vaccine: 65+ (2 of 2 - PCV) [facility] Start: 2020 Pneumococcal Vaccine : 65+ (1 - PCV) Pneumococcal Vaccine: 65+ (1 - PCV) [facility] Start: 2015 RSV Vaccine (1 - 1-d ose 60+ series) RSV Vaccine (1 - 1-dose 60+ series) [facility] Start: 2015 RSV Vaccine (1 - Ris k 60-74 years 1-dose series) RSV Vaccine (1 - Risk 60-74 years 1-dose series) [facility] Start: 2010 PROSTATE CANCER SCREENING DISCUSSION PROSTATE CANCER SCREENING DISCUSSION [facility] Start: 2005 SHINGRIX VACCINE (1 of 2) SHINGRIX VACCINE (1 of 2) [facility] Start: 2000 COLOGUARD (FIT-DNA) COLOGUARD (FIT-D NA) [facility] Start: [address] COLONOGRAPHY [facility] Start: 2000 DIABETES SCREEN DIABETES SCREEN [facility] Start: 2000 FECAL OCCULT BLOOD FECAL OCCULT BLOO D [facility] Start: 2000 Screening for malign ant neoplasm of colon [facility] Start: 2000 SIGMOIDOSCOPY SIGMOIDOSCOPY [facility] Start: 1990 LIPID SCREEN LIPID SCREEN [facility] Start: 1974 Urine microalbumin profile DTAP,TDAP,TD (1 - Tdap) [facility] Start: 1973 Anxiety Screening Anxiety Screening [facility] Start: 1973 Depression Screening Depression Scre ening [facility] Start: 1973 HEPATITIS C SCREENING HEPATITIS C [facility] Start: 1973 Hepatitis C screening Hepatitis C [facility] Basic metabolic 2008 panel with ionized calcium - Serum or Plasma [facility] Cardiac event recording [facility] H&P for surgery H&P FOR SURGERY Procedures Routine Umbilical hernia without obstruction or gangrene Ordered: 08/25/[address] [facility] Work Phone: Comment on above: Ordered: 08/25/2022 H&P for surgery H&P FOR SURGERY Procedures Routine Injury of right Achilles tendon, initial encounter Ordered: 04/15/[address] [facility] Work Phone: Comment on above: Ordered: 04/15/2023 INR in Platelet poor plasma by Coagulation assay INR (POC) Lab Routine Atrial fibrillation, unspecified type (HCC) Ordered: 03/10/[address] [facility] Work Phone: Comment on above: Ordered: 03/10/2022 INR in Platelet poor plasma by Coagulation assay INR (POC) Lab Routine Atrial fibrillation, unspecified type (HCC) Ordered: 03/17/[address] [facility] Work Phone: Comment on above: Ordered: 03/17/2022 INR in Platelet poor plasma by Coagulation assay INR (POC) Lab Routine Atrial fibrillation, unspecified type (HCC) Ordered: 03/28/[address] [facility] Work Phone: Comment on above: Ordered: 03/28/2022 INR in Platelet poor plasma by Coagulation assay INR (POC) Lab Routine Atrial fibrillation, unspecified type (HCC) Ordered: 05/09/[address] [facility] Work Phone: Comment on above: Ordered: 05/09/2022 INR in Platelet poor plasma by Coagulation assay INR (POC) Lab Routine Atrial fibrillation, unspecified type (HCC) Ordered: 05/14/[address] [facility] Work Phone: Comment on above: Ordered: 05/14/2022 INR in Platelet poor plasma by Coagulation assay INR (POC) Lab Routine Atrial fibrillation, unspecified type (HCC) Ordered: 06/11/[address] [facility] Work Phone: Comment on above: Ordered: 06/11/2022 INR in Platelet poor plasma by Coagulation assay INR (POC) Lab Routine Atrial fibrillation, unspecified type (HCC) Ordered: 06/23/[address] [facility] Work Phone: Comment on above: Ordered: 06/23/2022 INR in Platelet poor plasma by Coagulation assay INR (POC) Lab Routine Atrial fibrillation, unspecified type (HCC) Ordered: 07/11/[address] [facility] Work Phone: Comment on above: Ordered: 07/11/2022 INR in Platelet poor plasma by Coagulation assay INR (POC) Lab Routine Atrial fibrillation, unspecified type (HCC) Ordered: 07/21/[address] [facility] Work Phone: Comment on above: Ordered: 07/21/2022 INR in Platelet poor plasma by Coagulation assay INR (POC) Lab Routine Atrial fibrillation, unspecified type (HCC) Ordered: 07/28/[address] [facility] Work Phone: Comment on above: Ordered: 07/28/2022 INR in Platelet poor plasma by Coagulation assay INR (POC) Lab Routine Atrial fibrillation, unspecified type (HCC) Ordered: 08/04/[address] [facility] Work Phone: Comment on above: Ordered: 08/04/2022 INR in Platelet poor plasma by Coagulation assay INR (POC) Lab Routine Atrial fibrillation, unspecified type (HCC) Ordered: 11/24/[address] [facility] Work Phone: Comment on above: Ordered: 11/24/2022 INR in Platelet poor plasma by Coagulation assay INR (POC) Lab Routine Atrial fibrillation, unspecified type (HCC) Ordered: 12/29/[address] [facility] Work Phone: Comment on above: Ordered: 12/29/2022 INR in Platelet poor plasma by Coagulation assay INR (POC) Lab Routine Atrial fibrillation, unspecified type (HCC) Ordered: 01/26/[address] [facility] Work Phone: Comment on above: Ordered: 01/26/2023 INR in Platelet poor plasma by Coagulation assay INR (POC) Lab Routine Atrial fibrillation, unspecified type (HCC) Ordered: 02/10/[address] [facility] Work Phone: Comment on above: Ordered: 02/10/2023 INR in Platelet poor plasma by Coagulation assay INR (POC) Lab Routine Atrial fibrillation, unspecified type (HCC) Ordered: 03/02/[address] [facility] Work Phone: Comment on above: Ordered: 03/02/2023 INR in Platelet poor plasma by Coagulation assay INR (POC) Lab Routine Atrial fibrillation, unspecified type (HCC) Ordered: 03/11/[address] [facility] Work Phone: Comment on above: Ordered: 03/11/2023 INR in Platelet poor plasma by Coagulation assay INR (POC) Lab Routine Atrial fibrillation, unspecified type (HCC) Ordered: 06/22/[address] [facility] Work Phone: Comment on above: Ordered: 06/22/2023 INR in Platelet poor plasma by Coagulation assay INR (POC) Lab Routine Atrial fibrillation, unspecified type (HCC) Ordered: 06/29/[address] [facility] Work Phone: Comment on above: Ordered: 06/29/2023 INR in Platelet poor plasma by Coagulation assay INR (POC) Lab Routine Atrial fibrillation, unspecified type (HCC) Ordered: 07/01/[address] [facility] Work Phone: Comment on above: Ordered: 07/01/2023 INR in Platelet poor plasma by Coagulation assay INR (POC) Lab Routine Atrial fibrillation, unspecified type (HCC) Ordered: 07/06/[address] [facility] Work Phone: Comment on above: Ordered: 07/06/2023 INR in Platelet poor plasma by Coagulation assay INR (POC) Lab Routine Atrial fibrillation, unspecified type (HCC) Ordered: 07/16/[address] [facility] Work Phone: Comment on above: Ordered: 07/16/2023 INR in Platelet poor plasma by Coagulation assay INR (POC) Lab Routine Atrial fibrillation, unspecified type (HCC) Ordered: 07/23/[address] [facility] Work Phone: Comment on above: Ordered: 07/23/2023 INR in Platelet poor plasma by Coagulation assay INR (POC) Lab Routine Atrial fibrillation, unspecified type (HCC) Ordered: 07/30/[address] [facility] Work Phone: Comment on above: Ordered: 07/30/2023 INR in Platelet poor plasma by Coagulation assay INR (POC) Lab Routine Atrial fibrillation, unspecified type (HCC) Ordered: 08/03/[address] [facility] Work Phone: Comment on above: Ordered: 08/03/2023 INR in Platelet poor plasma by Coagulation assay INR (POC) Lab Routine Atrial fibrillation, unspecified type (HCC) Ordered: 08/10/[address] [facility] Work Phone: Comment on above: Ordered: 08/10/2023 INR in Platelet poor plasma by Coagulation assay INR (POC) Lab Routine Atrial fibrillation, unspecified type (HCC) Ordered: 08/25/[address] [facility] Work Phone: Comment on above: Ordered: 08/25/2023 INR in Platelet poor plasma by Coagulation assay INR (POC) Lab Routine Atrial fibrillation, unspecified type (HCC) Ordered: 10/08/[address] [facility] Work Phone: Comment on above: Ordered: 10/08/2023 INR in Platelet poor plasma by Coagulation assay INR (POC) Lab Routine Atrial fibrillation, unspecified type (HCC) Ordered: 10/22/[address] [facility] Work Phone: Comment on above: Ordered: 10/22/2023 INR in Platelet poor plasma by Coagulation assay INR (POC) Lab Routine Atrial fibrillation, unspecified type (HCC) Ordered: 11/05/[address] [facility] Work Phone: Comment on above: Ordered: 11/05/2023 INR in Platelet poor plasma by Coagulation assay INR (POC) Lab Routine Atrial fibrillation, unspecified type (HCC) Ordered: 11/18/[address] [facility] Work Phone: Comment on above: Ordered: 11/18/2023 INR in Platelet poor plasma by Coagulation assay INR (POC) Lab Routine Atrial fibrillation, unspecified type (HCC) Ordered: 12/09/[address] [facility] Work Phone: Comment on above: Ordered: 12/09/2023 INR in Platelet poor plasma by Coagulation assay INR (POC) Lab Routine Atrial fibrillation, unspecified type (HCC) Ordered: 01/11/[address] [facility] Work Phone: Comment on above: Ordered: 01/11/2024 INR in Platelet poor plasma by Coagulation assay INR (POC) Lab Routine Atrial fibrillation, unspecified type (HCC) Ordered: 01/26/[address] [facility] Work Phone: Comment on above: Ordered: 01/26/2024 INR in Platelet poor plasma by Coagulation assay INR (POC) Lab Routine Atrial fibrillation, unspecified type (HCC) Ordered: 02/22/[address] [facility] Work Phone: Comment on above: Ordered: 02/22/2024 INR in Platelet poor plasma by Coagulation assay INR (POC) Lab Routine Atrial fibrillation, unspecified type (HCC) Ordered: 02/29/[address] [facility] Work Phone: Comment on above: Ordered: 02/29/2024 INR in Platelet poor plasma by Coagulation assay INR (POC) Lab Routine Atrial fibrillation, unspecified type (HCC) Ordered: 03/14/[address] [facility] Work Phone: Comment on above: Ordered: 03/14/2024 INR in Platelet poor plasma by Coagulation assay INR (POC) Lab Routine Atrial fibrillation, unspecified type (HCC) Ordered: 04/11/[address] [facility] Work Phone: Comment on above: Ordered: 04/11/2024 INR in Platelet poor plasma by Coagulation assay INR (POC) Lab Routine Atrial fibrillation, unspecified type (HCC) Ordered: 04/25/[address] [facility] Work Phone: Comment on above: Ordered: 04/25/2024 INR in Platelet poor plasma by Coagulation assay INR (POC) Lab Routine Atrial fibrillation, unspecified type (HCC) Ordered: 05/25/[address] [facility] Work Phone: Comment on above: Ordered: 05/25/2024 INR in Platelet poor plasma by Coagulation assay INR (POC) Lab Routine Atrial fibrillation, unspecified type (HCC) Ordered: 06/27/[address] [facility] Work Phone: Comment on above: Ordered: 06/27/2024 INR in Platelet poor plasma by Coagulation assay INR (POC) Lab Routine Atrial fibrillation, unspecified type (HCC) Ordered: 07/25/[address] [facility] Work Phone: Comment on above: Ordered: 07/25/2024 INR in Platelet poor plasma by Coagulation assay INR (POC) Lab Routine Atrial fibrillation, unspecified type (HCC) Ordered: 08/01/[address] [facility] Work Phone: Comment on above: Ordered: 08/01/2024 INR in Platelet poor plasma by Coagulation assay INR (POC) Lab Routine Atrial fibrillation, unspecified type (HCC) Ordered: 08/29/[address] [facility] Work Phone: Comment on above: Ordered: 08/29/2024 INR in Platelet poor plasma by Coagulation assay INR (POC) Lab Routine Atrial fibrillation, unspecified type (HCC) Ordered: 09/28/[address] [facility] Work Phone: Comment on above: Ordered: 09/28/2024 INR in Platelet poor plasma by Coagulation assay INR (POC) Lab Routine Atrial fibrillation, unspecified type (HCC) Ordered: 10/31/[address] [facility] Work Phone: Comment on above: Ordered: 10/31/2024 INR in Platelet poor plasma by Coagulation assay INR (POC) Lab Routine Atrial fibrillation, unspecified type (HCC) Ordered: 11/03/[address] [facility] Work Phone: Comment on above: Ordered: 11/03/2024 Magnesium measurement [facility] End: 04-26-2023 Mri pelvis w/o & w/contrast material MRI PROSTATE WO/W IVCON Radiology Routine Encounter for observation for other suspected diseases and conditions ruled out 1 Occurrences starting 03/27/2022 until 04/26/[address] [facility] Work Phone: Comment on above: 1 Occurrences starti ng 03/27/2022 until 04/26/2023 End: 05-27-2022 Mri pelvis w/o & w/contrast material [facility] Work Phone: Comment on above: 1 Occurrences starti ng 05/27/2022 until 05/27/2022 Prothrombin time INR FINGERSTICK B/O Lab Routine Atrial fibrillation, unspecified type (HCC) Ordered: 03/06/[address] [facility] Work Phone: Comment on above: Ordered: 03/06/2022 Prothrombin time INR FINGERSTICK B/O Lab Routine Atrial fibrillation, unspecified type (HCC) Ordered: 04/07/[address] [facility] Work Phone: Comment on above: Ordered: 04/07/2022 Prothrombin time INR FINGERSTICK B/O Lab Routine Atrial fibrillation, unspecified type (HCC) Ordered: 05/28/[address] [facility] Work Phone: Comment on above: Ordered: 05/28/2022 Prothrombin time INR FINGERSTICK B/O Lab Routine Atrial fibrillation, unspecified type (HCC) Ordered: 07/10/[address] [facility] Work Phone: Comment on above: Ordered: 07/10/2022 Prothrombin time INR FINGERSTICK B/O Lab Routine Atrial fibrillation, unspecified type (HCC) Ordered: 09/16/[address] [facility] Work Phone: Comment on above: Ordered: 09/16/2022 Prothrombin time INR FINGERSTICK B/O Lab Routine Atrial fibrillation, unspecified type (HCC) Ordered: 09/18/[address] [facility] Work Phone: Comment on above: Ordered: 09/18/2022 Prothrombin time INR FINGERSTICK B/O Lab Routine Atrial fibrillation, unspecified type (HCC) Ordered: 09/23/[address] [facility] Work Phone: Comment on above: Ordered: 09/23/2022 Prothrombin time INR FINGERSTICK B/O Lab Routine Atrial fibrillation, unspecified type (HCC) Ordered: 10/22/[address] [facility] Work Phone: Comment on above: Ordered: 10/22/2022 Prothrombin time INR FINGERSTICK B/O Lab Routine Atrial fibrillation, unspecified type (HCC) Ordered: 11/20/[address] [facility] Work Phone: Comment on above: Ordered: 11/20/2022 Prothrombin time INR FINGERSTICK B/O Lab Routine Atrial fibrillation, unspecified type (HCC) Ordered: 12/08/[address] [facility] Work Phone: Comment on above: Ordered: 12/08/2022 Prothrombin time INR FINGERSTICK B/O Lab Routine Atrial fibrillation, unspecified type (HCC) Ordered: 12/15/[address] [facility] Work Phone: Comment on above: Ordered: 12/15/2022 Prothrombin time INR FINGERSTICK B/O Lab Routine Atrial fibrillation, unspecified type (HCC) Ordered: 09/14/[address] [facility] Work Phone: Comment on above: Ordered: 09/14/2023 Prothrombin time INR FINGERSTICK B/O Lab Routine Atrial fibrillation, unspecified type (HCC) Ordered: 09/25/[address] [facility] Work Phone: Comment on above: Ordered: 09/25/2023 End: 05-07-2023 PT panel - Platelet poor plasma by Coagulation assay PROTHROMBIN TIME/PT Lab Routine Atrial fibrillation, unspecified type (HCC) 99 Occurrences starting 05/07/2022 until 05/07/2023, [address] [facility] Work Phone: Comment on above: 99 Occurrences start ing 05/07/2022 until 05/07/2023, 1 completed Thyroid stimulating hormone measurement [facility] Immunizations Immunization [facility] Immunization Notes Care Provider [facility] 02-01-2023 zoster vaccine recombinant Elder Cordova MA [facility] 09-04-2022 zoster vaccine recombinant Wiliam George PA-C Work Phone: [facility] 09-01-2022 zoster vaccine, live Albina Edwards NON DESTRUCTIVE TESTING ENGINEER.WAFFLE MACHINE OPERATOR Work Phone: [facility] 06-09-2022 tetanus toxoid, redu norma diphtheria toxoid, and acellular pertussis vaccine, adsorbed Ryanbryan Edwards NON DESTRUCTIVE TESTING ENGINEER.WAFFLE MACHINE OPERATOR Work Phone: [facility] 02-26-2022 zoster RZV vaccine (SHINGRIX) 50 mcg/0.5 mL injection Ryan Edwards NON DESTRUCTIVE TESTING ENGINEER.WAFFLE MACHINE OPERATOR Work Phone: [facility] Work Phone: Comment on above: Repeat 2nd dose in 2 -6 months. 01-29-2021 COVID-19 original vaccine, age 12+ yr, monovalent (PFIZER-BIONTECH - DON TOP) Ryan Edwards NON DESTRUCTIVE TESTING ENGINEER.WAFFLE MACHINE OPERATOR Work Phone: [facility] 12-31-2020 COVID-19 original vaccine, age 12+ yr, monovalent (PFIZER-BIONTECH - DON TOP) Ryan Edwards APRN.WAFFLE MACHINE OPERATOR Work Phone: [facility] 05-08-2020 pneumococcal polysaccharide vaccine, 23 valent Wiliam George PA-C Work Phone: [facility] 12-06-2014 tetanus toxoid, not adsorbed Wiliam George PA-C Work Phone: [facility] 12-06-2014 tetanus toxoid, redu norma diphtheria toxoid, and acellular pertussis vaccine, adsorbed Wiliam George PA-C Work Phone: [facility] 05-18-1991 hepatitis B vaccine, adult dosage Wiliam Murrayulsfrancisco PA-C Work Phone: [facility] Payers Date Payer Category Payer Medicare (Managed Care) [facility] MEDIC[facility] HMO [id number] 2024 Medicare [id number] 2022 Self-pay [id number] 2022 Unknown [id number] 2021 Private Health Insurance [facility] [id number] 2021 Unknown [facility] [employer] [facility] MEDICARE SUPPLEMENT [id number] 2021-Present [phone] [address] [place] [address] Indemnity [id number] 2020 Medicare [id number] 2020 Unknown [id number] 2020 Medicare [id number] 1955 Unknown [id number] 1955 Unknown [id number] Unknown [id number] Unknown [id number] Unknown [id number] Unknown [id number] Social History Date Type Detail Facility Start: 02-26-2022 End: 06-05-2023 Tobacco smoking status NHIS Never smoked tobacco [facility] Start: 02-26-2022 End: 12-30-2022 Tobacco use and exposure Smokeless tobacco non-user [facility] Start: 02-26-2022 End: 11-05-2024 Alcohol intake Current drinker of alcohol (finding) [facility] Start: 1955 Sex Assigned At Not on file [facility] Start: 02-16-2022 End: 04-07-2022 Exposure to SARS-CoV-2 (event) Not sure [facility] Start: 09-08-2022 End: 06-05-2023 Tobacco smoking status NHIS Unknown if ever smoked [facility] Start: 1955 Sex Assigned At Male [facility] Start: 10-27-2022 End: 01-11-2024 History of Social function [facility] Start: 10-27-2022 End: 01-11-2024 Tobacco use panel [facility] Adult Depression Screening Assessment 0 [facility] (I/We) worried ann er (my/our) food would run out before (I/we) got money to buy more. Never true [facility] In the past 12 month s, was there a time when you were not able to pay the mortgage or rent on time? No [facility] Start: 04-22-2023 Alcohol Comment couple times a week [facility] Start: 05-18-2023 Gender identity Identifies as male gender (finding) [facility] Start: 05-18-2023 Sexual orientation Heterosexual (tanna murrell) [facility] Are you now , , , , never or living with a partner? Living with partner [facility] How often to you hav e a drink containing alcohol? 4 or more times a week [facility] How many standard drinks containing alcohol do you have on a typical day? 3 or 4 [facility] How often do you hav e 6 or more drinks on 1 occasion? Less than monthly [facility] Do you feel stress - tense, restless, nervous, or anxious, or unable to sleep at night because your mind is troubled all the time - these days [OSQ] Not at all [facility] Start: 11-05-2024 Alcohol Comment 2 shots whiske y nightly [facility] NEGATED: Highlighted rowStart: NINF History of tobacco use Passive smoker [facility] Medical Equipment Procedure Code Equipment Code Equipment Origin al Text Equipment Identifier Dates Mesh Parietex 6. 6cm Small Collagen Surgical Patch [facility] Composite - [id number] Start: 10-14-2022 Functional Status Date Assessment Result Facility 11-06-2024 Are you deaf, or do you have serious difficulty hearing No 11/06/2024 11:50 AM Amber Fuentes RN No [facility] 11-06-2024 Are you blind, or do you have serious difficulty seeing, even when wearing glasses No 11/06/2024 11:50 AM Amber Fuentes RN No [facility] 11-06-2024 Do you have serious difficulty walking or climbing stairs No 11/06/2024 11:50 AM Amber Fuentes RN No [facility] 11-06-2024 Do you have difficul ty dressing or bathing No 11/06/2024 11:50 AM Amber Fuentes RN No [facility] 11-06-2024 Because of a physica l, mental, or emotional condition, do you have difficulty doing errands alone such as visiting a physician's office or shopping No 11/06/2024 11:50 AM Amber Fuentes RN No [facility] 04-30-2023 Are you deaf, or do you have serious difficulty hearing No 04/30/2023 1:33 PM Amber Ray RN No [facility] 04-30-2023 Are you blind, or do you have serious difficulty seeing, even when wearing glasses No 04/30/2023 1:33 PM Amber Ray RN No [facility] 04-30-2023 Do you have serious difficulty walking or climbing stairs No 04/30/2023 1:33 PM Amber Ray RN No [facility] 04-30-2023 Do you have difficul ty dressing or bathing No 04/30/2023 1:33 PM Amber Ray RN No [facility] 04-30-2023 Because of a physica l, mental, or emotional condition, do you have difficulty doing errands alone such as visiting a physician's office or shopping No 04/30/2023 1:33 PM Amber Ray RN No [facility] Mental Status Date Assessment Result Facility 11-06-2024 Because of a physica l, mental, or emotional condition, do you have serious difficulty concentrating, remembering, or making decisions No 11/06/2024 11:50 AM Amber Fuentes RN No [facility] 04-30-2023 Because of a physica l, mental, or emotional condition, do you have serious difficulty concentrating, remembering, or making decisions No 04/30/2023 1:33 PM Amber Ray RN No [facility] Clinical Notes 02-26-2022 to 11-08-2024 Telephone Encounter - Shannan Muñoz MA - 11/08/2024 3:19 PM EDTTelephone Encounter - Shannan Muñoz MA - 11/08/2024 3:19 PM EDTTelephone Encounter - Cristine Boykin LPN - 11/08/2024 10:06 AM EDT Note Date & Type Note Facility 11-08-2024 Telephone encounter Note Called patient and informed Shannan Muñoz MA [facility] 11-08-2024 Miscellaneous Notes Called patient and informed Shannan Muñoz MA New rx sent in for one time dose of 40 meq x1 Pt stopped in office stating that potassium was sent in to the pharmacy but pharmacy could not fill as it was sent in incorrect. Pt is asking that Ryan Edwards send in script. Per chart script was sent in for potassium chloride ER 20 mEq 2 tablets by mouth twice daily for 1 dosage. Per d/c paperwork pt brought in last dosage of potassium 40 mEq was given on 11/06/2024 at 9:49AM. This is showing that pt is due for only one dosage of potassium 40mEq 1 dosage. Sent to Ryan Edwards CNP for review and recommendations. Cristine Boykin LPN documented in this encounter [facility] 11-08-2024 Telephone encounter Note New rx sent in for one time dose of 40 meq x1 [facility] 11-08-2024 Telephone encounter Note Pt stopped in office stating that potassium was sent in to the pharmacy but pharmacy could not fill as it was sent in incorrect. Pt is asking that Ryan Edwards send in script. Per chart script was sent in for potassium chloride ER 20 mEq 2 tablets by mouth twice daily for 1 dosage. Per d/c paperwork pt brought in last dosage of potassium 40 mEq was given on 11/06/2024 at 9:49AM. This is showing that pt is due for only one dosage of potassium 40mEq 1 dosage. Sent to Ryan Edwards CNP for review and recommendations. Cristine Boykin LPN T [facility] 11-07-2024 Note HNO ID: [id number] Author: MATY STUBBS RN Service: ? Author Type: Registered Nurse Type: Progress Notes Filed: 11/07/2024 10:34 Note Text: TRANSITIONAL CARE MANAGEMENT (TCM) COMMUNITY MONITORING PROGRAM - KILKENNY SUMMARY: Pt discharged from [facility] on 11/06/24. RISK 11 Admitted for: Near syncope SVT Patient seen Inpatient CAM Visit? N/A. Patient seen ICARE Program? N/A. Contact made with patient: Yes Hi my name is Maty Stubbs RN and I am calling from the [facility] on behalf of your PCP, Ryan Edwards APRN.BARBIE I understand you were recently in the hospital so I am calling to check in with you to ensure you are feeling well now that you?re home. Do you mind if I ask you a few questions related to your hospital stay and well-being Yes Contact with patient post discharge, spoke to patient. Patient identified by name and . Do [...] which medication you should be on? Yes Pt thought he was being sent home on Magnesium because it was low. Discussed that pt's Magnesium level was normal on 11/05/24 and 11/06/24. Do you need any medication refills at this time, including any of the medications you might take only when needed? No ACTION TAKEN: No action required For RNs or Pharmacy completing outreach ONLY, was a medication review completed? Yes Current/Discharged Medications reviewed: Yes Medication List Medication Directions Comments dilTIAZem CD (CARDIZEM CD, CARTIA XT) 240 mg 24 hr capsule TAKE 1 CAPSULE BY MOUTH EVERY DAY Verified potassium chloride ER (KLOR-CON) 20 mEq tablet Take 2 tablets by mouth two times a day for 1 dose. Pt's pharmacy didn't have this med yesterday - He hopes to get it today sildenafil (VIAGRA) 50 mg tablet TAKE 1 TABLET BY MOUTH EVERY DAY NEEDED Verified VIT B COMPLEX 100 COMBO NO.2 ORAL Take by mouth. Verified Takes 1 pill daily He also takes Vitamin D3 1000U 1 pill daily warfarin (COUMADIN) 2 mg tablet Take 1 tablet by mouth daily as directed. Verified Thursday AND takes 6mg daily, Rest of the week you take 8mg daily warfarin (COUMADIN) 4 mg tablet TAKE 2 TABLETS BY MOUTH EVERY DAY INSTRUCTED Verified Thursday AND takes 6mg daily, Rest of the week you take 8mg daily SOCIAL: We would like to make sure [...] like to speak with a social work produce team lead to help give you support for any [...] TAKEN: No action required WRAP AROUND SERVICES: N/A Patient educated on importance of primary care [...] telephone visit with your PCP. ACTION TAKEN: Pt is agreeable to a hospital f/u appointment. He prefers to see his PCP only. TCM Primary Care Provider Visit Scheduled: Yes - Appt date: 11/23/24 at 10a with Alyssia Edwards NP (PCP). Maty Stubbs RN [facility] 11-07-2024 History of Presen t illness Narrative TRANSITIONAL CARE MANAGEMENT (TCM) COMMUNITY MONITORING PROGRAM - KILKENNY SUMMARY: Pt discharged from [facility] on 11/06/24. RISK 11 Admitted for: Near syncope SVT Patient seen Inpatient CAM Visit? N/A. Patient seen ICARE Program? N/A. Contact made with patient: Yes Hi my name is Maty Stubbs RN and I am calling from the [facility] on behalf of your PCP, Ryan Edwards APRN.WAFFLE MACHINE OPERATOR I understand you were recently in the hospital so I am calling to check in with you to ensure you are feeling well now that you re home. Do you mind if I ask you a few questions related to your hospital stay and well-being Yes Contact with patient post discharge, spoke to patient. Patient identified by name and . Do [...] which medication you should be on? Yes Pt thought he was being sent home on Magnesium because it was low. Discussed that pt's Magnesium level was normal on 11/05/24 and 11/06/24. Do you need any medication refills at this time, including any of the medications you might take only when needed? No ACTION TAKEN: No action required For RNs or Pharmacy completing outreach ONLY, was a medication review completed? Yes Current/Discharged Medications reviewed: Yes Medication List Medication Directions Comments dilTIAZem CD (CARDIZEM CD, CARTIA XT) 240 mg 24 hr capsule TAKE 1 CAPSULE BY MOUTH EVERY DAY Verified potassium chloride ER (KLOR-CON) 20 mEq tablet Take 2 tablets by mouth two times a day for 1 dose. Pt's pharmacy didn't have this med yesterday - He hopes to get it today sildenafil (VIAGRA) 50 mg tablet TAKE 1 TABLET BY MOUTH EVERY DAY NEEDED Verified VIT B COMPLEX 100 COMBO NO.2 ORAL Take by mouth. Verified Takes 1 pill daily He also takes Vitamin D3 1000U 1 pill daily warfarin (COUMADIN) 2 mg tablet Take 1 tablet by mouth daily as directed. Verified Thursday & takes 6mg daily, Rest of the week you take 8mg daily warfarin (COUMADIN) 4 mg tablet TAKE 2 TABLETS BY MOUTH EVERY DAY INSTRUCTED Verified Thursday & takes 6mg daily, Rest of the week you take 8mg daily SOCIAL: We would like to make sure [...] like to speak with a social work produce team lead to help give you support for any [...] TAKEN: No action required WRAP AROUND SERVICES: N/A Patient educated on importance of primary care [...] telephone visit with your PCP. ACTION TAKEN: Pt is agreeable to a hospital f/u appointment. He prefers to see his PCP only. TCM Primary Care Provider Visit Scheduled: Yes - Appt date: 11/23/24 at 10a with Alyssia Edwards NP (PCP). Maty Stubbs RN documented in this encounter [facility] 11-07-2024 Note Patient Outreach (AG ACM) RU WORKMAN ([id number]) 1955 M Date Time Provider Department 11/07/24 MATY STUBBS [facility] During your visit today, we recorded the following information about you: Maty Stubbs, RN 11/07/2024 10:34 AM Signed TRANSITIONAL CARE MANAGEMENT (TCM) COMMUNITY MONITORING PROGRAM - JON SUMMARY: Pt discharged from [facility] on 11/06/24. RISK 11 Admitted for: Near syncope SVT Patient seen Inpatient CAM Visit? N/A. Patient seen ICARE Program? N/A. Contact made with patient: Yes Hi my name is Maty Stubbs RN and I am calling from the [facility] on behalf of your PCP, Ryan Edwards APRN.WAFFLE MACHINE OPERATOR I understand you were recently in the hospital so I am calling to check in with you to ensure you are feeling well now that you?re home. Do you mind if I ask you a few questions related to your hospital stay and well-being Yes Contact with patient post discharge, spoke to patient. Patient identified by name and . Do [...] which medication you should be on? Yes Pt thought he was being sent home on Magnesium because it was low. Discussed that pt's Magnesium level was normal on 11/05/24 and 11/06/24. Do you need any medication refills at this time, including any of the medications you might take only when needed? No ACTION TAKEN: No action required For RNs or Pharmacy completing outreach ONLY, was a medication review completed? Yes Current/Discharged Medications reviewed: Yes Medication List Medication Directions Comments dilTIAZem CD (CARDIZEM CD, CARTIA XT) 240 mg 24 hr capsule TAKE 1 CAPSULE BY MOUTH EVERY DAY Verified potassium chloride ER (KLOR-CON) 20 mEq tablet Take 2 tablets by mouth two times a day for 1 dose. Pt's pharmacy didn't have this med yesterday - He hopes to get it today sildenafil (VIAGRA) 50 mg tablet TAKE 1 TABLET BY MOUTH EVERY DAY NEEDED Verified VIT B COMPLEX 100 COMBO NO.2 ORAL Take by mouth. Verified Takes 1 pill daily He also takes Vitamin D3 1000U 1 pill daily warfarin (COUMADIN) 2 mg tablet Take 1 tablet by mouth daily as directed. Verified Thursday AND takes 6mg daily, Rest of the week you take 8mg daily warfarin (COUMADIN) 4 mg tablet TAKE 2 TABLETS BY MOUTH EVERY DAY INSTRUCTED Verified Thursday AND takes 6mg daily, Rest of the week you take 8mg daily SOCIAL: We would like to make sure [...] like to speak with a social work produce team lead to help give you support for any [...] TAKEN: No action required WRAP AROUND SERVICES: N/A Patient educated on importance of primary care [...] telephone visit with your PCP. ACTION TAKEN: Pt is agreeable to a hospital f/u appointment. He prefers to see his PCP only. TCM Primary Care Provider Visit Scheduled: Yes - Appt date: 11/23/24 at 10a with Alyssia Edwards NP (PCP). Maty Stubbs RN Allergies As of Date: 11/07/2024 (more content not included)... [facility] 11-06-2024 Note HNO ID: [id number] Author: JENNIFER DOWD RN Service: Care Management Author Type: Registered Nurse Type: Care Mgt Progress Note Filed: 11/06/2024 11:23 Note Text: CARE MANAGEMENT DISCHARGE NOTE SERVICE DATE: November 06, 2024 SERVICE TIME: 11:23 AM Admission Date: 11/05/2024 LOS: 0 days Discharge Arrangement Discharge Arrangement: Home with Self Care Caregiver Assessment Caregiver is ready, willing and able to meet the patient's needs as recommended by the inter-professional team: No Caregiver needed Transportation Arrangements Transportation Arrangements: Car Date of Trip: 11/06/24 Destination: Home Handoff Communication: Handoff to: Primary Care Physician Primary Care Physician Name/Phone: Ryan Edwards APRN.CNP/ Discharge to home with no skilled needs. S/O to transport. SIGNATURE: Jennifer Dowd RN PATIENT NAME: Ru Workman DATE: November 06, 2024 TIME: 11:23 AM [facility] 11-06-2024 Note HNO ID: [id number] Author: JENNIFER DOWD RN Service: Care Management Author Type: Registered Nurse Type: Care Mgt Initial Assessment Filed: 11/06/2024 11:22 Note Text: CARE MANAGEMENT: ASSESSMENT AND DISCHARGE PLAN SERVICE DATE: November 06, 2024 SERVICE TIME: 11:21 AM PCP: Ryan Edwards APRN.CNP Primary Contact: Extended Emergency Contact Information Primary Emergency Contact: Malgorzata Collado Address: [address] [place] [id number] [facility] Mobile Relation: Significant other Secondary Emergency Contact: Merary Vance Address: [id number] [place] [address] [facility] Mobile Relation: Daughter Admission Status: Observation Insurance Provider: [employer] MEDICARE HMO Discharge Planning requested by: Per Department Practice Potential Transition Plans Home Advance Directives Current Advance Directive: Living Will In Chart: Yes Up To Date and Valid: Yes Current Living Arrangements and Support Lives with: Spouse/significant other Type of Residence: Private Residence (House) Support: Spouse/significant other, Children How do you manage to accomplish the following: Independent: Ambulation, Bathe/Shower, Dress, Meals/Meal Prep, Going to the bathroom, Medication Management, Transportation to appointments/community Current Services/Equipment Current Post-Acute Service(s): DME Current DME Type: Continuous Positive Airway Pressure Discharge Planning Patient Goal(s): General wellness, Be able to go home [place] of Choice Explained: [place] of Choice Given: No Reason Not Given: No placements necessary Are you interested in bedside delivery of your medications? No Discharge Planning Participant(s): Patient Caregiver Assessment: Caregiver is ready, willing and able to meet the patient's needs as recommended by the inter-professional team: No Caregiver needed Transport at Discharge: Transportation Arrangements: Car Date of Trip: 11/06/24 Destination: Home Needs Prior to Discharge: Needs Prior to Discharge: None, Ready for Discharge Post-Acute Discharge Plan: This patient has been screened for Care Management Transitional Planning Services. At this time it does not appear this patient will require transition planning services. Should this change, and the patient requires transition planning services coordinated during this admission (ie SNF placement, Home Care, IV ATB?s, Home Oxygen), please call the Director Of Anesthesia Services covering this patient. 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 Plan for discharge home today. SIGNATURE: Jennifer Dowd RN PATIENT NAME: Ru Workman DATE: November 06, 2024 TIME: 11:21 AM [facility] 11-03-2024 Note HNO ID: [id number] Author: DANA DAVIS MA Service: ? Author Type: Associate Director Of Biostatistics Type: Progress Notes Filed: 11/03/2024 08:41 Note Text: Patient here for INR check. Last INR was 4.2 on 10/31/24 at that time Ryan had patient hold his coumadin that day then take 6 mg Thursday, Thursday. Patient's INR today was 1.8. Per conversation with Ryan Edwards CNP patient informed to take coumadin 6 mg Thursday, Thursday, 8 mg all other days and recheck in 2 weeks. Dana Davis MA [facility] 11-03-2024 History of Presen t illness Narrative Patient here for INR check. Last INR was 4.2 on 10/31/24 at that time Ryan had patient hold his coumadin that day then take 6 mg Thursday, Thursday. Patient's INR today was 1.8. Per conversation with Ryan Edwards CNP patient informed to take coumadin 6 mg Thursday, Thursday, 8 mg all other days and recheck in 2 weeks. Dana Davis MA documented in this encounter [facility] 11-02-2024 Note HNO ID: [id number] Author: ANDRÉS OTT OTR/L Service: ? Author Type: Occupational Therapist Type: Progress Notes Filed: 11/02/2024 13:14 Note Text: Episode Visit Count: 5 Therapist That Will Accept/Oversee The Plan Of Care: Hannah Ott Start of Care Date: 09/06/24 Onset Date: 08/09/24 Plan of Care Certification Date: 10/28/24 Next Certification Due Date: 12/27/24 Patient Identified by Name and Date of : Yes REHABILITATION AND SPORTS THERAPY OCCUPATIONAL THERAPY TREATMENT NOTE ASSESSMENT: Ru Workman tolerated the session with no issues. He demonstrated difficulty with isolate thumb metacarpal phalangeal extension. No thumb IP extensor lag present with performing blocking exercises with wrist in neutral position. The patient will continue to benefit from ongoing skilled occupational therapy to progress toward set goals. Current Frequency: 1x/week Duration: 8 weeks Total Number of Visits Planned: 12 Planned Treatment Interventions: Custom orthosis fabrication, Therapeutic exercise (57644), Therapeutic activities (00275), Manual therapy (84442), Self-skilled nursing management (37567) PLAN FOR NEXT VISIT: Progress to strengthening next session. SUBJECTIVE: Left thumb weakness. About the same. Using kinesiotape to support thumb , and using splint at night. Wondering when he can return to motorcycle riding. Follows up with Dr. Pino on 11/09/24. (8 weeks, [address] to EPL transfer) Functional Limitations: lifting, physical activities, gripping, pinching, twisting, pushing, pulling, carrying, weight bearing Pain: Pain Pain Level: 0 Pain Location: Hand - Left Post Treatment Pain Post Treatment Pain Level: No Change OBJECTIVE MEASURES WITH LEVEL OF FUNCTION: Hand Skin / Wound: Scar Scar: Non-tender Edema Location: Left thumb/ hand Edema Description: Mild Shoulder AROM: WFL Elbow AROM: WFL Wrist AROM: Left Limitation Right Hand AROM: WFL Left Hand AROM: WFL Thumb AROM: Left Limitation (measured with wrist neutral) Strength: (Testing not indicated) Sensation: Denies tingling or numbness Dexterity/Coordination: Not Tested Clinical Presentation: (able to fire EPL, FPL . No IP extensor lag) UE AROM R Wrist Extension: 65 Degrees R Wrist Flexion: 55 Degrees Right Hand AROM: WFL Left Hand AROM: WFL Thumb AROM: Left Limitation (measured with wrist neutral) Hand AROM L Thumb MP Extension : -26 Degrees L Thumb MP Flexion : 64 Degrees L Thumb IP Extension : 0 Degrees L Thumb IP Flexion : 74 Degrees L Thumb Radial Abduction: 55 Degrees TREATMENT: Therapeutic Exercise: 1: Wrist and thumb range of motion exercises in fluidotherapy x 10'. Verbal and visual cues provided by therapist for exercise performance. Fluidotherapy was utilitized to increase tissue extensibility and prior to therapeutic exercises and manual treatment During this time, clinician also monitored patient's pain level, symptom management , with use of orthosis , kineosiotand home program. All concerns and questions were answered to apparent satisfaction. 2: Wrist AROM exercises unloaded - all planes for functional return to self care skills. 3: Thumb AROM : MP and IP blocking , radial and palmar abduction, opposition. 4: Place hold composite thumb extension, forearm neutral, wrist in various arc of ROM 5: Active tendon transfer training: Elbow 90 degrees, neutral Forearm pronated, verbal / visual cues to pronate/ flex wrist and extend thumb (*) 6: Holding tennis ball active thumb palmar adduction/ adduction 7: Gentle composite wrist/ thumb flexion and extension 8: Isolated training of EPB and APB: active blocking and place hold 9: Thumb towel walking . verbal/ visual cues to perfrom slowly focusing on terminal thumb extension. (*) Patient verbalized understanding and agreed to incorporate into home program 10: Tennis ball - thumb alphabet 11: Type of tape: Rocktape Application style: I strip Amount of tension applied: light Direction of tape: distal to proximal Placement of tape: tape was applied to dorsal thumb/ forearm (location), one strips Patient's response to treatment: No signs of discomfort or irritation during application. Patient reported relief from pain following tape application Duration of application: Planned wear time is 3-5 days or until tape loses adhesion Patient Education: Educated in how to prep skin, care for tape,when to to remove tape, and observe signs of irritation or allergic reaction. Skilled Intervention: Patient was educated in proper exercise technique and purpose for exercises. Reviewed and educated patient on additions/changes for home exercise program as above (*). Skilled judgment was used in selection of appropriate interventions. Provided written instruction for home exercise program to facilitate proper performance and compliance. Correct performance of therapeutic exercises wa (more content not included)... [facility] 11-02-2024 History of Presen t illness Narrative Episode Visit Count: 5 Therapist That Will Accept/Oversee The Plan Of Care: Hannah Ott Start of Care Date: 09/06/24 Onset Date: 08/09/24 Plan of Care Certification Date: 10/28/24 Next Certification Due Date: 12/27/24 Patient Identified by Name and Date of : Yes REHABILITATION AND SPORTS THERAPY OCCUPATIONAL THERAPY TREATMENT NOTE ASSESSMENT: Ru Workman tolerated the session with no issues. He demonstrated difficulty with isolate thumb metacarpal phalangeal extension. No thumb IP extensor lag present with performing blocking exercises with wrist in neutral position. The patient will continue to benefit from ongoing skilled occupational therapy to progress toward set goals. Current Frequency: 1x/week Duration: 8 weeks Total Number of Visits Planned: 12 Planned Treatment Interventions: Custom orthosis fabrication, Therapeutic exercise (72541), Therapeutic activities (75223), Manual therapy (07526), Self-skilled nursing management ([id number]) PLAN FOR NEXT VISIT: Progress to strengthening next session. SUBJECTIVE: Left thumb weakness. About the same. Using kinesiotape to support thumb , and using splint at night. Wondering when he can return to motorcycle riding. Follows up with Dr. Pino on 11/09/24. (8 weeks, [address] to EPL transfer) Functional Limitations: lifting, physical activities, gripping, pinching, twisting, pushing, pulling, carrying, weight bearing Pain: Pain Pain Level: 0 Pain Location: Hand - Left Post Treatment Pain Post Treatment Pain Level: No Change OBJECTIVE MEASURES WITH LEVEL OF FUNCTION: Hand Skin / Wound: Scar Scar: Non-tender Edema Location: Left thumb/ hand Edema Description: Mild Shoulder AROM: WFL Elbow AROM: WFL Wrist AROM: Left Limitation Right Hand AROM: WFL Left Hand AROM: WFL Thumb AROM: Left Limitation (measured with wrist neutral) Strength: (Testing not indicated) Sensation: Denies tingling or numbness Dexterity/Coordination: Not Tested Clinical Presentation: (able to fire EPL, FPL . No IP extensor lag) UE AROM R Wrist Extension: 65 Degrees R Wrist Flexion: 55 Degrees Right Hand AROM: WFL Left Hand AROM: WFL Thumb AROM: Left Limitation (measured with wrist neutral) Hand AROM L Thumb MP Extension : -26 Degrees L Thumb MP Flexion : 64 Degrees L Thumb IP Extension : 0 Degrees L Thumb IP Flexion : 74 Degrees L Thumb Radial Abduction: 55 Degrees TREATMENT: Therapeutic Exercise: 1: Wrist and thumb range of motion exercises in fluidotherapy x 10'. Verbal and visual cues provided by therapist for exercise performance. Fluidotherapy was utilitized to increase tissue extensibility and prior to therapeutic exercises and manual treatment During this time, clinician also monitored patient's pain level, symptom management , with use of orthosis , kineosiotand home program. All concerns and questions were answered to apparent satisfaction. 2: Wrist AROM exercises unloaded - all planes for functional return to self care skills. 3: Thumb AROM : MP and IP blocking , radial and palmar abduction, opposition. 4: Place hold composite thumb extension, forearm neutral, wrist in various arc of ROM 5: Active tendon transfer training: Elbow 90 degrees, neutral Forearm pronated, verbal / visual cues to pronate/ flex wrist and extend thumb (*) 6: Holding tennis ball active thumb palmar adduction/ adduction 7: Gentle composite wrist/ thumb flexion and extension 8: Isolated training of EPB and APB: active blocking and place hold 9: Thumb towel walking . verbal/ visual cues to perfrom slowly focusing on terminal thumb extension. (*) Patient verbalized understanding and agreed to incorporate into home program 10: Tennis ball - thumb alphabet 11: Type of tape: Rocktape Application style: I strip Amount of tension applied: light Direction of tape: distal to proximal Placement of tape: tape was applied to dorsal thumb/ forearm (location), one strips Patient's response to treatment: No signs of discomfort or irritation during application. Patient reported relief from pain following tape application Duration of application: Planned wear time is 3-5 days or until tape loses adhesion Patient Education: Educated in how to prep skin, care for tape,when to to remove tape, and observe signs of irritation or allergic reaction. Skilled Intervention: Patient was educated in proper exercise technique and purpose for exercises. Reviewed and educated patient on additions/changes for home exercise program as above (*). Skilled judgment was used in selection of appropriate interventions. Provided written instruction for home exercise program to facilitate proper performance and compliance. Correct performance of therapeutic exercises was facilitated with verbal, visual, and tactile cuing. Neuromuscular Re-Education: 1: Use of mirror box as an adjunct to retrain the brain and facilitate motor re-education, visual feedback. Passive visualization of thumb ROM exercises and tendon transfer exercises performed by right (nonsurgical hand) Skilled Intervention: Provided written instruction for home program to facilitate proper performance and compliance. Home Program Assigned: Current Home Program: Elbow is at your side ,bent at 90 degree angle . Hand is positioned with thumb up towards the ceiling. Keeping your elbow bent, slowly turn your palm down, slightly bending your wrist while simultaneously lifting your thumb up . Hold this position for 5 -10 seconds. Repeat 10 times. Perform 2-3 times/ day. Thumb towel walking. Place a towel on table. Position hand palm down. Bend your thumb under your palm and then bring it out and away from your hand. Visualize that your are fully bending AND straightening or extending your thumb back. Hold this position for 5 -10 seconds. Repeat 10 times . Perform 2-3 times/day. Place hold Thumb Extension: Position hand on table, resting on little finger side. Slight bend at wrist. Use your right hand to lift your left thumb and PLACE it up and away from your hand. Let go with your left hand and HOLD this position for 5-10 seconds. Perform 2-3 times/ day Billing Therapeutic Exercise Treatment Minutes: 34 Neuromuscular Re-Education Treatment Minutes: 10 Skilled Treatment Time Minutes (timed and untimed codes): 44 Total Session Time (minutes): 44 Session Start Time : 1130 Session Stop Time : 1214 NIKO Fox,CHT documented in this encounter [facility] 10-31-2024 Note HNO ID: [id number] Author: DANA DAVIS MA Service: ? Author Type: Associate Director Of Biostatistics Type: Progress Notes Filed: 10/31/2024 08:49 Note Text: Patient here for INR check. Last INR was 2.6 on 09/28/24. Patient is currently taking coumadin 6 mg on and 8 mg all other days, denies missing any doses. Patient's INR today was 4.2. Per conversation with Ryan Edwards CNP informed patient to hold coumadin today then take 6 mg on Thursday, Thursday and recheck on . Patient verbalized understanding. Dana Davis MA [facility] 10-31-2024 History of Presen t illness Narrative Patient here for INR check. Last INR was 2.6 on 09/28/24. Patient is currently taking coumadin 6 mg on and 8 mg all other days, denies missing any doses. Patient's INR today was 4.2. Per conversation with Ryan Edwards CNP informed patient to hold coumadin today then take 6 mg on Thursday, Thursday and recheck on . Patient verbalized understanding. Dana Davis MA documented in this encounter [facility] 10-28-2024 Note HNO ID: [id number] Author: ANDRÉS OTT OTR/L Service: ? Author Type: Occupational Therapist Type: Progress Notes Filed: 11/02/2024 13:16 Note Text: Episode Visit Count: 4 Therapist That Will Accept/Oversee The Plan Of Care: Hannah Ott Start of Care Date: 09/06/24 Onset Date: 08/09/24 Plan of Care Certification Date: 10/28/24 Next Certification Due Date: 12/27/24 Patient Identified by Name and Date of : Yes REHABILITATION AND SPORTS THERAPY OCCUPATIONAL THERAPY PROGRESS REPORT PLAN OF CARE UPDATE: Assessment: Ru Workman demonstrates improvements in gripping. The patient has progressed toward goals. Patient continues to present with impairments in independence in exercise, overall function, range of motion, and strength that interfere with lifting, physical activities, gripping, pinching, twisting, pushing, pulling, carrying, weight bearing . Current prognosis is Good due to: good overall health status . The patient will benefit from continued skilled therapy services to meet the updated goals for this plan of care as noted below. PLAN FOR NEXT VISIT: Update home program as indicated, Initiate PROM/ strenghtening in 2 weeks Goals for Episode of Care: established 09/06/24 , reviewed on 09/15/24 and 10/28/2024 Patient reported outcome of physical function will increase T-score by a minimum 5 points.(A, ongoing) Patient will report a good understanding of diagnosis and OT recommendations for progression of program.(PA, ongoing) Patient will increase AROM of Left hand to WFL of L thumb in order to be able to improve function for moderate to heavy functional tasks. ( PA, ongoing) Patient will independently demonstrate correct application of CUSTOM orthosis and verbalize understanding of proper wear/care. (A) Patient will increase Left chair pad maker strength to Within 50% R hand, so that patient will be able to improve function for basic self-care tasks and moderate to heavy functional tasks. ( N T, not indicated) Patient will increase Left pinch within 50% so that patient will be able to improve function for basic self-care tasks and moderate to heavy functional tasks. ( N T) Patient will report a good understanding of edema control, scar / wound management throughout therapy plan of care to promote non-adherent / non-tender soft tissue.(PA, ongoing) Patient will demonstrate or report an increase in Fine Motor Coordination through testing or performance compared to initial evaluation. ( N T ) Goal Montalvo A=achieved PA=partially achieved NA=not achieved NT=not tested Patient Goals: Resume normal function of hand Time Frame for Goals and Treatment : 12/27/24 Patient Goals: Resume normal function of hand Planned Interventions, Frequency, and Duration: 1x/week, 8 weeks Total Number of Visits Planned: 12 Planned Treatment Interventions: Custom orthosis fabrication, Therapeutic exercise (46952), Therapeutic activities (27560), Manual therapy (57564), Self-skilled nursing management (97353) PLAN FOR NEXT VISIT: Update home program as indicated, Initiate PROM/ strenghtening in 2 weeks SUBJECTIVE: Left thumb and wris stiffness. You tell me if it is any better. 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 Functional Limitations: lifting, physical activities, gripping, pinching, twisting, pushing, pulling, carrying, weight bearing Pain: Pain Pain Level: 0 Pain Location: Hand - Left Post Treatment Pain Post Treatment Pain Level: No Change PROMIS Scales 10/28/2024 10/12/2024 09/06/2024 Higher is Better Self-Eff Symptom - T Score 50 (Average) 53 (Average) Self-Eff Symptom - Percentile 50 62 Upper Extremity - T Score 54 (within normal limits) 43 (mild dysfunction) 47 (within normal limits) Upper Extremity - Percentile 66 24 38 Proxy-reported T-scores: mean of general population = 50. 5 points is clinically meaningfully difference Percentiles provide an indication of how the patient's score ranks in relation to the general population. Higher percentile rankings indicate better function/quality of life. 50th percentile is the average of the general population and indicates half of respondents had a worse score. OBJECTIVE MEASURES WITH LEVEL OF FUNCTION: Vision Vision Deficits: Wears corrective lenses Hand Skin / Wound: Scar Scar: Non-tender Edema Location: Left thumb/ hand Edema Description: Mild Edema Measurements: Wrist (DWC) (cm) R Wrist (DWC) (cm): 20 L Wrist (DWC) (cm): 20 Shoulder AROM: WFL Elbow AROM: WFL Wrist AROM: Left Limitation Right Hand AROM: WFL Left Hand AROM: WFL Thumb AROM: Left Limitation Strength: (Testing not indicated) Sensation: Denies tingling or numbness Dexterity/Coordination: Not Tested Clinical Presentation: (able to fire EPL, FPL . No IP extensor lag) UE AROM R Wrist Extension: 60 Degrees R Wrist Flexion: 52 Degrees R Wrist Radial Deviation: 25 (more content not included)... [facility] 10-28-2024 History of Presen t illness Narrative Images from the original note were not included. Episode Visit Count: 4 Therapist That Will Accept/Oversee The Plan Of Care: Hannah Ott Start of Care Date: 09/06/24 Onset Date: 08/09/24 Plan of Care Certification Date: 10/28/24 Next Certification Due Date: 12/27/24 Patient Identified by Name and Date of : Yes [facility] OCCUPATIONAL THERAPY PROGRESS REPORT PLAN OF CARE UPDATE: Assessment: Ru Workman demonstrates improvements in gripping. The patient has progressed toward goals. Patient continues to present with impairments in independence in exercise, overall function, range of motion, and strength that interfere with lifting, physical activities, gripping, pinching, twisting, pushing, pulling, carrying, weight bearing . Current prognosis is Good due to: good overall health status . The patient will benefit from continued skilled therapy services to meet the updated goals for this plan of care as noted below. PLAN FOR NEXT VISIT: Update home program as indicated, Initiate PROM/ strenghtening in 2 weeks Goals for Episode of Care: established 09/06/24 , reviewed on 09/15/24 and 10/28/2024 Patient reported outcome of physical function will increase T-score by a minimum 5 points.(A, ongoing) Patient will report a good understanding of diagnosis and OT recommendations for progression of program.(PA, ongoing) Patient will increase AROM of Left hand to WFL of L thumb in order to be able to improve function for moderate to heavy functional tasks. ( PA, ongoing) Patient will independently demonstrate correct application of CUSTOM orthosis and verbalize understanding of proper wear/care. (A) Patient will increase Left chair pad maker strength to Within 50% R hand, so that patient will be able to improve function for basic self-care tasks and moderate to heavy functional tasks. ( N T, not indicated) Patient will increase Left pinch within 50% so that patient will be able to improve function for basic self-care tasks and moderate to heavy functional tasks. ( N T) Patient will report a good understanding of edema control, scar / wound management throughout therapy plan of care to promote non-adherent / non-tender soft tissue.(PA, ongoing) Patient will demonstrate or report an increase in Fine Motor Coordination through testing or performance compared to initial evaluation. ( N T ) Goal Montalvo A=achieved PA=partially achieved NA=not achieved NT=not tested Patient Goals: Resume normal function of hand Time Frame for Goals and Treatment : 12/27/24 Patient Goals: Resume normal function of hand Planned Interventions, Frequency, and Duration: 1x/week, 8 weeks Total Number of Visits Planned: 12 Planned Treatment Interventions: Custom orthosis fabrication, Therapeutic exercise (07790), Therapeutic activities (21301), Manual therapy (23732), Self-skilled nursing management (45147) PLAN FOR NEXT VISIT: Update home program as indicated, Initiate PROM/ strenghtening in 2 weeks SUBJECTIVE: Left thumb and wris stiffness. You tell me if it is any better. 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 Functional Limitations: lifting, physical activities, gripping, pinching, twisting, pushing, pulling, carrying, weight bearing Pain: Pain Pain Level: 0 Pain Location: Hand - Left Post Treatment Pain Post Treatment Pain Level: No Change PROMIS Scales 10/28/2024 10/12/2024 09/06/2024 Higher is Better Self-Eff Symptom - T Score 50 (Average) 53 (Average) Self-Eff Symptom - Percentile 50 62 Upper Extremity - T Score 54 (within normal limits) 43 (mild dysfunction) 47 (within normal limits) Upper Extremity - Percentile 66 24 38 Proxy-reported T-scores: mean of general population = 50. 5 points is clinically meaningfully difference Percentiles provide an indication of how the patient's score ranks in relation to the general population. Higher percentile rankings indicate better function/quality of life. 50th percentile is the average of the general population and indicates half of respondents had a worse score. OBJECTIVE MEASURES WITH LEVEL OF FUNCTION: Vision Vision Deficits: Wears corrective lenses Hand Skin / Wound: Scar Scar: Non-tender Edema Location: Left thumb/ hand Edema Description: Mild Edema Measurements: Wrist (DWC) (cm) R Wrist (DWC) (cm): 20 L Wrist (DWC) (cm): 20 Shoulder AROM: WFL Elbow AROM: WFL Wrist AROM: Left Limitation Right Hand AROM: WFL Left Hand AROM: WFL Thumb AROM: Left Limitation Strength: (Testing not indicated) Sensation: Denies tingling or numbness Dexterity/Coordination: Not Tested Clinical Presentation: (able to fire EPL, FPL . No IP extensor lag) UE AROM R Wrist Extension: 60 Degrees R Wrist Flexion: 52 Degrees R Wrist Radial Deviation: 25 Degrees R Wrist Ulnar Deviation: 35 Degrees Right Hand AROM: WFL Left Hand AROM: WFL Thumb AROM: Left Limitation Hand AROM L Thumb MP Extension : 0 Degrees L Thumb MP Flexion : 54 Degrees L Thumb IP Extension : 0 Degrees L Thumb IP Flexion : 50 Degrees L Thumb Radial Abduction: 50 Degrees L Thumb Opposition (Functional): Jamelje 8 TREATMENT: Therapeutic Exercise: 1: Wrist and thumb range of motion exercises in fluidotherapy x 10'. Verbal and visual cues provided by therapist for exercise performance. Fluidotherapy was utilitized to increase tissue extensibility and prior to therapeutic exercises and manual treatment During this time, clinician also monitored patient's pain level, symptom management , compliance with use of orthosis and home program. All concerns and questions were answered to apparent satisfaction. 2: Wrist AROM exercises unloaded - all planes for functional return to self care skills. 3: Thumb AROM : MP and IP blocking , radial and palmar abduction, opposition. 4: Place hold thumb extension 5: Active tendon transfer training 6: Holding tennis ball active thumb palmar adduction/ adduction 7: Tennis ball rotation. Verbal cues to initiate movement of ball with thumb 8: Skilled instruction provided in progression of home program. Okay to wean/ discontinue orthosis during the day, as long as there is no increased thumb IP extension lag. Avoid any heavy lifting, gripping, twisting, pinching. Patient verbalized understanding. Skilled Intervention: Patient was educated in proper exercise technique and purpose for exercises. Reviewed and educated patient on additions/changes for home exercise program as above (*). Skilled judgment was used in selection of appropriate interventions. Provided written instruction for home exercise program to facilitate proper performance and compliance. Correct performance of therapeutic exercises was facilitated with verbal, visual, and tactile cuing. Billing Therapeutic Exercise Treatment Minutes: 45 Skilled Treatment Time Minutes (timed and untimed codes): 45 Total Session Time (minutes): 45 Session Start Time : 915 Session Stop Time : 1001 NIKO Fox,CHT Program_ID:[id number] Access Code: [email or web address] URL: [email or web address] Date: 10-28-2024 Prepared By: Andrés Ott Program Notes For the first two exercises, vary the wrist position Exercises - Seated Thumb IP Flexion AROM with Blocking - 3 x daily - 7 x weekly - 3 sets - 10 reps - Seated Thumb MP Extension AROM with Blocking - 3 x daily - 7 x weekly - 3 sets - 10 reps - Thumb Radial Adduction with Thumb Flexion AROM on Table - 3 x daily - 7 x weekly - 1 sets - 10 reps - Seated Thumb Palmar Abduction Adduction AROM - 3 x daily - 7 x weekly - 1 sets - 10 reps - Thumb Opposition - 3 x daily - 7 x weekly - 1 sets - 10 reps documented in this encounter [facility] 10-12-2024 Note HNO ID: [id number] Author: WILIAM GEORGE PA-C Service: ? Author Type: Physician Head Grease Maker Type: Progress Notes Filed: 10/12/2024 12:57 Note Text: ORTHOPAEDIC OFFICE NOTE Patient presents with: Left Thumb - Post Op: Denies pain Postop Visit: 2nd POV, Post op day 5.5 weeks SURGEON Pancho Pino MD PROCEDURE Transfer left palmaris longus tendon to left extensor pollicis longus tendon PROCEDURE DATE: 09/02/24 HISTORY OF PRESENT ILLNESS Ru is a 69-year-old male presenting for follow-up 5.5 weeks post-op for transfer of left palmaris longus tendon to left extensor pollicis longus tendon. Ru reports no significant changes in thumb function since the last visit. He has not initiated formal therapy exercises or stretches to allow the extensor tendon to heal. He denies pain since the surgery, stating, I haven't had one bit of pain since the day he did it. It's never hurt. He notes the presence of a firm area near the volar incision site, which he suspects may be scar tissue, but denies significant pain associated with it, stating, if you push on it, there's a little bit, but not a lot. Ru expresses concern about this surgery failing and the possibility of additional surgery, as he has work commitments lined up for the summer. He inquires if another surgery is needed, can the surgery could be postponed until the fall. Reviewed nursing note and current pain scale. PAIN EVALUATION No data found in the last 1 encounters. PAST MEDICAL HISTORY Diagnosis Date A-fib (HCC) BPH with obstruction/lower urinary tract symptoms SHANNON (obstructive sleep apnea) Personal history of malignant melanoma of skin Rupture of right Achilles tendon Septic bursitis of elbow PAST SURGICAL HISTORY Procedure Laterality Date PAST [...] HERNIA,REDUCIBLE N/A 10/14/2022 Umbilical hernia repair TONSILLECTOMY AND ADENOIDECTOMY Tonsil/adenoidectomy VASECTOMY UNI/BI SPX W/POSTOP SEMEN EXAMS XCAPSL CTRC RMVL INSJ IO LENS PROSTH W/O ECP Bilateral Social History Tobacco Use Smoking status: Never Passive exposure: Never Smokeless tobacco: Never Vaping Use Vaping status: Never Used Substance Use Topics Alcohol use: Yes Comment: couple times a week Drug use: Never Current Outpatient Medications Medication Sig sildenafil (VIAGRA) 50 mg tablet TAKE 1 TABLET BY MOUTH EVERY DAY NEEDED warfarin (COUMADIN) 4 mg tablet TAKE 2 TABLETS BY MOUTH EVERY DAY INSTRUCTED warfarin (COUMADIN) 2 mg tablet Take 1 tablet by mouth daily as directed. dilTIAZem CD (CARDIZEM CD, CARTIA XT) 240 mg 24 hr capsule TAKE 1 CAPSULE BY MOUTH EVERY DAY VIT B COMPLEX 100 COMBO NO.2 ORAL Take by mouth. No current facility-administered medications for this visit. ALLERGIES No Known Allergies Resp 20 Ht 6' 0 (1.83m) Wt 231 lb (104.8kg) BMI 31.32 kg/(m2). Review of systems: Musculoskeletal: (-) pain at rest in left hand/wrist, (+) mild tenderness with palpation of left wrist lump EXAM: - Musculoskeletal: - Left Thumb: - Incision lines intact, no drainage; scars maturing nicely. - Mild edema on dorsal aspect; no erythema or cellulitis. - Thumb held in slight flexion at MCP joint, but this is improved from last visit. - Able to perform some active extension at the thumb IP joint when isolated at the IP joint. - Unable to hold extension of left thumb IP or MP joints against gravity. - There is a firm, nodule noted to volar aspect of left wrist. No pain on palpation of this. - Neurological: Full sensation intact to all fingertips. - Cardiovascular: Capillary refill <3 seconds; radial pulse 2+. ASSESSMENT: (Z98.890) Postoperative state (primary encounter diagnosis) (S56.419A) Rupture of extensor tendon of finger PLAN: 1. Postoperative state (Z98.890) Rupture of extensor tendon of finger (S56.419A) Exam suggests extensor tendon repair remains intact. - Keep patient splinted for at least 2 more week to allow for more scarring of the tendon repair. - Instructed patient to remain [id number] on left hand and wrist. - Hand therapist, Hannah, will guide range of motion progression and eventual strengthening in 2 weeks. - Briefly discussed potential alternative surgical method involving rerouting a flexor tendon if extensor tendon repair fails. Follow-up scheduled in 4 weeks on November 09 to evaluate progress. Procedures INSTRUCTIONS: We discussed your recovery following surgery to transfer your left palmaris longus tendon to your left extensor pollicis longus tendon: - Your incision sites on y (more content not included)... [facility] 10-12-2024 History of Presen t illness Narrative Images from the original note were not included. ORTHOPAEDIC OFFICE NOTE Patient presents with: Left Thumb - Post Op: Denies pain Postop Visit: 2nd POV, Post op day 5.5 weeks SURGEON Pancho Pino MD PROCEDURE Transfer left palmaris longus tendon to left extensor pollicis longus tendon PROCEDURE DATE: 09/02/24 HISTORY OF PRESENT ILLNESS Ru is a 69-year-old male presenting for follow-up 5.5 weeks post-op for transfer of left palmaris longus tendon to left extensor pollicis longus tendon. Ru reports no significant changes in thumb function since the last visit. He has not initiated formal therapy exercises or stretches to allow the extensor tendon to heal. He denies pain since the surgery, stating, I haven't had one bit of pain since the day he did it. It's never hurt. He notes the presence of a firm area near the volar incision site, which he suspects may be scar tissue, but denies significant pain associated with it, stating, if you push on it, there's a little bit, but not a lot. Ru expresses concern about this surgery failing and the possibility of additional surgery, as he has work commitments lined up for the summer. He inquires if another surgery is needed, can the surgery could be postponed until the fall. Reviewed nursing note and current pain scale. PAIN EVALUATION No data found in the last 1 encounters. PAST MEDICAL HISTORY Diagnosis Date A-fib (HCC) BPH with obstruction/lower urinary tract symptoms SHANNON (obstructive sleep apnea) Personal history of malignant melanoma of skin Rupture of right Achilles tendon Septic bursitis of elbow PAST SURGICAL HISTORY Procedure Laterality Date PAST [...] Never Smokeless tobacco: Never Vaping Use Vaping status: Never Used Substance Use Topics Alcohol use: Yes Comment: couple times a week Drug use: Never Current Outpatient Medications Medication Sig sildenafil (VIAGRA) 50 mg tablet TAKE 1 TABLET BY MOUTH EVERY DAY NEEDED warfarin (COUMADIN) 4 mg tablet TAKE 2 TABLETS BY MOUTH EVERY DAY INSTRUCTED warfarin (COUMADIN) 2 mg tablet Take 1 tablet by mouth daily as directed. dilTIAZem CD (CARDIZEM CD, CARTIA XT) 240 mg 24 hr capsule TAKE 1 CAPSULE BY MOUTH EVERY DAY VIT B COMPLEX 100 COMBO NO.2 ORAL Take by mouth. No current facility-administered medications for this visit. ALLERGIES No Known Allergies Resp 20 Ht 6' 0 (1.83m) Wt 231 lb (104.8kg) BMI 31.32 kg/(m^2). Review of systems: Musculoskeletal: (-) pain at rest in left hand/wrist, (+) mild tenderness with palpation of left wrist lump EXAM: - Musculoskeletal: - Left Thumb: - Incision lines intact, no drainage; scars maturing nicely. - Mild edema on dorsal aspect; no erythema or cellulitis. - Thumb held in slight flexion at MCP joint, but this is improved from last visit. - Able to perform some active extension at the thumb IP joint when isolated at the IP joint. - Unable to hold extension of left thumb IP or MP joints against gravity. - There is a firm, nodule noted to volar aspect of left wrist. No pain on palpation of this. - Neurological: Full sensation intact to all fingertips. - Cardiovascular: Capillary refill <3 seconds; radial pulse 2+. ASSESSMENT: (Z98.890) Postoperative state (primary encounter diagnosis) (S56.419A) Rupture of extensor tendon of finger PLAN: 1. Postoperative state (Z98.890) Rupture of extensor tendon of finger (S56.419A) Exam suggests extensor tendon repair remains intact. - Keep patient splinted for at least 2 more week to allow for more scarring of the tendon repair. - Instructed patient to remain [id number] on left hand and wrist. - Hand therapist, Hannah, will guide range of motion progression and eventual strengthening in 2 weeks. - Briefly discussed potential alternative surgical method involving rerouting a flexor tendon if extensor tendon repair fails. Follow-up scheduled in 4 weeks on November 09 to evaluate progress. Procedures INSTRUCTIONS: We discussed your recovery following surgery to transfer your left palmaris longus tendon to your left extensor pollicis longus tendon: - Your incision sites on your left thumb and wrist are healing well, with no signs of infection or drainage. The scars are maturing nicely, and there is only mild swelling on the back of your left thumb. - You are now able to perform some active extension of your left thumb at the IP joint when isolated, though you are not yet able to hold it extended against gravity. This is an improvement from your last visit. - Full sensation is intact in all your fingertips, and your circulation is good. We discussed your rehabilitation plan: - You will remain in your splint for at least 2 more weeks to allow for further healing and scarring down of your tendon repair. - You should remain [id number] on your left hand and wrist. - Hannah, our hand therapist, will guide you through your rehabilitation, including range of motion exercises and eventual strengthening. She will also help wean you out of the splint when appropriate. - You may begin moving your thumb as much as you can tolerate, but avoid heavy lifting. We discussed the possibility of further surgery: - If your extensor tendon repair is found to have failed, Dr. Pino will discuss an alternative surgical option involving rerouting a flexor tendon. However, based on today s exam, there is evidence of an intact repair of your extensor tendon repair, so further surgery is not currently necessary. Follow-up: - Your next post-operative appointment is scheduled for November [address] Watkins. At that visit, we will evaluate your progress and discuss next steps. - If you experience any new or worsening symptoms before your next visit, please contact our office. Please continue to follow the rehabilitation plan and let us know if you have any concerns. This note was generated via [employer] scribe technology and [employer] voice dictation and may contain errors related to that system such as spelling, grammar, punctuation, gender, words, and phrases that may be inappropriate. All reasonable efforts were made to correct dictation errors, however, they still may occur given the software used. Wiliam FRANKEL PA-C [facility] documented in this encounter [facility] 10-04-2024 Note HNO ID: [id number] Author: RYAN EDWARDS APRN.BARBIE Service: ? Author Type: Nurse Practitioner Type: Progress Notes Filed: 10/04/2024 13:50 Note Text: Recording using ambient AI software for draft documentation of the visit was discussed with the patient/authorized b2b sales representative; all questions welcomed and answered. Patient/authorized b2b sales representative agreed to proceed Ru Workman is a 69 year old male here for a Medicare wellness visit. PMH HTN, Afib, elevated PSA, melanoma, SHANNON. Patient denies changes in health since last office visit. Reports feeling well. Denies concerns or complaints today. I reviewed patients past medical, surgical, social, and family histories today and updated chart. Allergies, chronic medications, and supplements were also reviewed and list is now up to date. Medicare Wellness Visit: - Passed cognitive exam. - No chest pain, palpitations, headaches, or dizziness. - No dyspnea, wheezing, or cough with normal activity; experiences dyspnea with exertion. - No edema in feet or ankles, but recently dropped a piece of wood on foot. - No known allergies. - Denies smoking, vaping, or chewing tobacco. - Diet low in salt and processed foods. HTN: Mr. Workman indicates that he is feeling well and denies any symptoms referable to elevated blood pressure. Specifically denies headache, chest pain, palpitations, dyspnea, claudication symptoms, orthopnea, fatigue, and PND. Patient denies any side effects of his medication(s) and is compliant with their regimen. He does not check BP's generally. Ru has limited mobility and can not participate in aerobic exercise. He watches his diet for sodium, low fat and low cholesterol some of the time. He is taking cardizem 240 mg daily. Afib: Dx 2020. He is taking coumadin 8 mg on , , and 6 mg rest of days. He had colonoscopy last week and held coumadin and he missed his dose Thursday. Denies any symptoms related to afib, denies unusual bleeding. He does notice easy bruising. Reports mainly on forearm. He is also taking cardizem daily for management. This was started on this in [place] when he was diagnosed. He was seeing Dr at [facility]. Medicare Wellness Visit: Elevated PSA/BPH: since at least 2013. Had prostate biopsy in 01/25/2014 for elevated PSA of 5.7 in [place]. 12/20/21 PSA 10.5. most recent PSA 01/07 of 8.81. He is seeing Dr Tai. He was last seen 12/30/22. He had MRI fusion bx on 06/26/22 path benign. Luts okay. Was on flomax with no noted change in Luts. He did stop this. Reported muscle wasting when taking. He was started on finsteride 5 mg daily for this in december. he has follow up on 01/05/[address] Tai. - Diagnosed with BPH; has had two negative biopsies. - Last seen by Dr. Flanagan about a year ago; next appointment scheduled for January. - No issues with urinary flow or incomplete emptying. Melanoma: Dx 1991, lower back. It was removed x 3. He goes yearly for check up. He is seeing DR Montalvo in [place] yearly for skin checks. He reports his due for OV. SHANNON: [id number] in [place]. He wears CPAP nightly. He reports it has worked well for him. States he is no longer tired and no longer takes naps. Hearing Loss: - Diagnosed with hearing loss; seen by ENT. - Considering hearing aids but was advised they may not be very effective. 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 Vision: - Sees exercise teacher Dr. Matthews annually; next appointment scheduled for December 01. - History of detached retinas. Periorbital Edema: - Noticed increased periorbital edema; denies allergies or family history of similar symptoms. Left Thumb: - Underwent flexor tendon transfer surgery on left thumb on September 02. - No pain post-surgery; limited range of motion due to incorrect positioning. - Follow-up appointment with therapist and home health assistant scheduled for next Thursday. Preventative: he is not interested in flu, COVID, or RSV vaccines. He has had 2 COVID vaccine. Last colonoscopy 2017 in [place], reports one polyp. He does not smoke or chew tobacco. He reports cutting back on alcohol. States stop drinking during the week. Reports drinking 8 cocktails on the weekends. Reports he cut back about a month ago. States he was drinking nightly Some elements of above documentation were copied from my progress note of 09/14/23 and have been reexamined and updated where appropriate. All elements reflect the current assessment and medical decision making today . Medicare Health Risk Assessment General Health Very good Exercise: Minutes/Day 40 min Exercise: Days/Week 7 days Alcohol: Daily Use 4 or more times a week Alcohol: Drinks/Day 3 or 4 Alcohol: 6 or more drinks Less than monthly Feel off balance Denies Concerns: Teeth/Dentures Denies Concerns: Sexual function Denies Troubled by feelings Denies Frequency: Eating healthy diet Always ADLs requirin (more content not included)... [facility] 09-28-2024 Note HNO ID: [id number] Author: CRISTINE BOYKIN LPN Service: ? Author Type: LICENSED NURSE Type: Progress Notes Filed: 09/28/2024 13:27 Note Text: INR (POCT) Date Value Ref Range Status 09/28/2024 2.6 (H) 0.8 - 1.2 Final 09/28/24 1319 BP: 122/80 Pt in office for INR check as ordered by Ryan Edwards CNP. INR 2.6 today. Pt is currently taking warfarin 6 mg and 8 mg on other days. Per Ryan Edwards CNP pt to continue same dosage and recheck in 1 month. Pt aware and verbalized an understanding. Cristine Boykin LPN [facility] 09-28-2024 History of Presen t illness Narrative INR (POCT) Date Value Ref Range Status 09/28/2024 2.6 (H) 0.8 - 1.2 Final 09/28/24 1319 BP: 122/80 Pt in office for INR check as ordered by Ryan Edwards CNP. INR 2.6 today. Pt is currently taking warfarin 6 mg Th and 8 mg on other days. Per Ryan Edwards CNP pt to continue same dosage and recheck in 1 month. Pt aware and verbalized an understanding. Cristine Boykin LPN documented in this encounter [facility] 09-19-2024 Instructions Ezio Richardson, AUD - 09/19/2024 9:45 AM EDT Images from the original note were not included. [facility] Section of Audiology Thank you for trusting the [facility] Audiology department with your hearing healthcare today. We appreciated the opportunity to meet with you today to assess your hearing status and needs. For you to be able to hear, the brain requires sound to travel through the entire auditory system which involves the outer ear, middle ear, inner ear, and auditory nerve. Symptoms of hearing loss, tinnitus, dizziness, or sensations in the ear may have many different causes. These symptoms may be due to problems associated with your ear, vision, brain, heart, medications, other health conditions, or history of exposure to loud noises. Today you completed a comprehensive evaluation of your auditory system. In addition, during today's appointment, you endorsed difficulty hearing or understanding conversational partners while in the presence of background noise. To assess this, we had you repeat sentences in simulated background noise of varying degrees of loudness. For this test, you performed as well as normal hearing individuals using both ears. Based on today's test results and if you feel like your hearing loss is impacting your communication with others, you are a candidate for hearing technology. To schedule an appointment to discuss options for hearing technology, please call our scheduling line at [phone] and ask for a Hearing Aid Evaluation appointment at your preferred [facility] location. You can request this appointment with your inspector watch parts through [employer], as well. In order to investigate a potential insurance benefit for hearing aids, please plan to schedule your appointment for at least 1 week from the time of your phone call so that your insurance benefit can be verified. If there is no insurance benefit, please be aware there is a $100 [id number] fee due at time of service. TEST SUMMARY: Based on today's evaluation, your results revealed sensorineural hearing loss in both ears. No previous results available. Sensorineural Hearing Loss: Hearing loss means we had to turn the sound up, outside the range of normal, in order for you to be able to hear it. This type of hearing loss affects the inner ear (cochlea) or auditory nerve. Loud noises, diseases or the aging process often cause it. Children are prone to this type due to congenital conditions (present at ), trauma during childbirth, head injuries or infections. Sensorineural hearing loss is often permanent. Hearing aids and hearing assistive devices can help. Listed below are some communication strategies that help you hear others: 1) Facing communication partner. 2) Removing physical or visual barriers. 3) Maintaining a maximum distance for 6-10 feet from communication partner. 4) Encouraging communication partners to use clear speech and get their attention before speaking. 5) Reducing or removing background noise sources. 6) Taking turns speaking in conversation. 7) Ensuring the listener and speaker's voice are level with each other (both seated or both standing). Recommendations: * * Continue medical follow-up with Lyssa Colón MD as needed. * The patient was counseled regarding the need to continue to monitor hearing and have regular hearing assessments. * The patient was counseled about hearing conservation and use of noise protectors. Information about hearing protection devices was provided to the patient. If custom HPDs are desired, please call [phone] to schedule an [facility] appointment. * The patient was counseled regarding effective communication strategies to enhance communication ability. * Call [phone] to schedule an appointment to assess your need for hearing aids. Request a HAE appointment. * Encouraged patient to reach out to insurance provider to determine if they are eligible for a hearing aid benefit. Patient was advised that if they return to [facility], the cost of hearing aids would likely be [id number]. * Patient was counseled to maintain a sound enriched environment to assist in managing the tinnitus. Thank you for trusting and choosing [facility] Audiology with your hearing care needs. Please do not hesitate to reach out with any questions or concerns. Sincerely, Patricia Montoya, [facility] Clinical and Senior Hearing Implant Lens Engraver documented in this encounter [facility] 09-19-2024 Note HNO ID: [id number] Author: EZIO RICHARDSON AUD Service: ? Author Type: Lens Engraver Type: Progress Notes Filed: 09/19/2024 10:54 Note Text: [facility] AUDIOLOGIC EVALUATION REPORT Name: Ru Workman [facility]#: [id number] Date of Service: 09/19/2024 Date of : 1955 Age: [age] year old Referred by: No ref. provider found Referred for: Evaluation of suspected change in hearing, tinnitus, or balance. 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 Risk of Falls Documentation for over 65 years old: No history of falls reported so minimal to no risk IMPRESSIONS RIGHT EAR: Sensorineural hearing loss LEFT EAR: Sensorineural hearing loss AUDIOLOGIC EVALUATION Following is a brief interpretation of the obtained findings from the audiologic evaluation. Refer to the Auditory Test Record for complete audiometric results. The patient was counseled about the test findings and appropriate audiologic recommendations were made. SUMMARY: Audiogram can be viewed under Procedures. OTOSCOPY RIGHT EAR: Otoscopic inspection revealed ear canal was clear with an identifiable cone of light. LEFT EAR: Otoscopic inspection revealed ear canal was clear with an identifiable cone of light. TYMPANOMETRY Description of procedure: This test is an objective evaluation of middle ear function. CPT code: 36387 RIGHT EAR: Did not test. LEFT EAR: Did not test. ACOUSTIC REFLEXES Description of procedure: This test is an objective measure of auditory and facial nerve pathways. CPT code: 27633, 17163 RIGHT EAR PROBE EAR: (ipsi right stimulus ear; contralateral left stimulus ear): Acoustic Reflex Pattern Did not test Acoustic Reflex Decay (left stimulus ear): Did not test. LEFT EAR PROBE EAR: (ipsi left stimulus ear; contralateral right stimulus ear): Acoustic Reflex Pattern Did not test Acoustic Reflex Decay (right stimulus ear):Did not test. PURE TONE AUDIOMETRY AND SPEECH TESTING Description of procedure: This test is an objective evaluation hearing sensitivity via air and bone conduction and speech recognition testing. CPT code:31771 RIGHT EAR: Hearing Sensitivity: WNL through 3000 Hz sloping to mild SNHL Word Recognition Score: Excellent (90-100%). WRS is consistent with hearing sensitivity. Words were presented at 55 dB HL approximates (45-55 dB HL) intensity level for average conversational speech. The NU-6 Ordered by Difficulty Word List (10 words) was used for testing. LEFT EAR: Hearing Sensitivity: WNL through 3000 Hz sloping mild to moderately severe SNHL Word Recognition Score: Excellent (90-100%). WRS is consistent with hearing sensitivity. Words were presented at 50 dB HL which approximates (45-55 dB HL) intensity level for average conversational speech. The NU-6 Ordered by Difficulty Word List (10 words) was used for testing. SPEECH PERCEPTION TESTING (UNAIDED) Unaided speech perception testing was completed outside the sound hong ([facility]) where stimuli was calibrated at 70 girl friday for QuickSIN using recorded stimuli at 0 degrees azimuth. NOTE: Unaided results: QuickSIN Test Condition List # SNR Loss Degree Bilateral 1 AND 2 1 Normal/near normal (0-3 dB) During today's appointment, you endorsed difficulty hearing or understanding conversational partners while in the presence of background noise. To assess this, we had you repeat sentences in simulated background noise of varying degrees of loudness. For this test, you performed as well as normal hearing individuals using both ears. RECOMMENDATIONS * Continue medical follow-up with Lyssa Colón MD for asymmetry. * The patient was counseled regarding the need to continue to monitor hearing and have regular hearing assessments. * The patient was counseled about hearing conservation and use of noise protectors. Information about hearing protection devices was provided to the patient. If custom HPDs are desired, please call [phone] to schedule an [facility] appointment. * The patient was counseled regarding effective communication strategies to enhance communication ability. * Call [phone] to schedule an appointment to assess your need for hearing aids. Request a HAE appointment. * Encouraged patient to reach out to insurance provider to determine if they are eligible for a hearing aid benefit. Patient was adv (more content not included)... [facility] 09-19-2024 History of Presen t illness Narrative [facility] AUDIOLOGIC EVALUATION REPORT Name: Ru Workman CC#: [id number] Date of Service: 09/19/2024 Date of : 1955 Age: [age] year old Referred by: No ref. provider found Referred for: Evaluation of suspected change in hearing, tinnitus, or balance. 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 Risk of Falls Documentation for over 65 years old: No history of falls reported so minimal to no risk IMPRESSIONS RIGHT EAR: Sensorineural hearing loss LEFT EAR: Sensorineural hearing loss AUDIOLOGIC EVALUATION Following is a brief interpretation of the obtained findings from the audiologic evaluation. Refer to the Auditory Test Record for complete audiometric results. The patient was counseled about the test findings and appropriate audiologic recommendations were made. SUMMARY: Audiogram can be viewed under Procedures. OTOSCOPY RIGHT EAR: Otoscopic inspection revealed ear canal was clear with an identifiable cone of light. LEFT EAR: Otoscopic inspection revealed ear canal was clear with an identifiable cone of light. TYMPANOMETRY Description of procedure: This test is an objective evaluation of middle ear function. CPT code: 80248 RIGHT EAR: Did not test. LEFT EAR: Did not test. ACOUSTIC REFLEXES Description of procedure: This test is an objective measure of auditory and facial nerve pathways. CPT code: 77496, 86940 RIGHT EAR PROBE EAR: (ipsi right stimulus ear; contralateral left stimulus ear): Acoustic Reflex Pattern Did not test Acoustic Reflex Decay (left stimulus ear): Did not test. LEFT EAR PROBE EAR: (ipsi left stimulus ear; contralateral right stimulus ear): Acoustic Reflex Pattern Did not test Acoustic Reflex Decay (right stimulus ear):Did not test. PURE TONE AUDIOMETRY AND SPEECH TESTING Description of procedure: This test is an objective evaluation hearing sensitivity via air and bone conduction and speech recognition testing. CPT code:74061 RIGHT EAR: Hearing Sensitivity: WNL through 3000 Hz sloping to mild SNHL Word Recognition Score: Excellent (90-100%). WRS is consistent with hearing sensitivity. Words were presented at 55 dB HL approximates (45-55 dB HL) intensity level for average conversational speech. The NU-6 Ordered by Difficulty Word List (10 words) was used for testing. LEFT EAR: Hearing Sensitivity: WNL through 3000 Hz sloping mild to moderately severe SNHL Word Recognition Score: Excellent (90-100%). WRS is consistent with hearing sensitivity. Words were presented at 50 dB HL which approximates (45-55 dB HL) intensity level for average conversational speech. The NU-6 Ordered by Difficulty Word List (10 words) was used for testing. SPEECH PERCEPTION TESTING (UNAIDED) Unaided speech perception testing was completed outside the sound hong ([facility]) where stimuli was calibrated at 70 girl friday for QuickSIN using recorded stimuli at 0 degrees azimuth. NOTE: Unaided results: QuickSIN Test Condition List # SNR Loss Degree Bilateral 1 & 2 1 Normal/near normal (0-3 dB) During today's appointment, you endorsed difficulty hearing or understanding conversational partners while in the presence of background noise. To assess this, we had you repeat sentences in simulated background noise of varying degrees of loudness. For this test, you performed as well as normal hearing individuals using both ears. RECOMMENDATIONS * Continue medical follow-up with Lyssa Colón MD for asymmetry. * The patient was counseled regarding the need to continue to monitor hearing and have regular hearing assessments. * The patient was counseled about hearing conservation and use of noise protectors. Information about hearing protection devices was provided to the patient. If custom HPDs are desired, please call [phone] to schedule an [facility]PRESS[facility] appointment. * The patient was counseled regarding effective communication strategies to enhance communication ability. * Call [phone] to schedule an appointment to assess your need for hearing aids. Request a HAE appointment. * Encouraged patient to reach out to insurance provider to determine if they are eligible for a hearing aid benefit. Patient was advised that if they return to [facility], the cost of hearing aids would likely be [id number]. * Patient was counseled to maintain a sound enriched environment to assist in managing the tinnitus. Patricia Montoya, [facility] Clinical and Senior Hearing Implant Lens Engraver copied to: Lyssa Colón MD MONTALVO Abbrev- iation Definition Degree of hearing sensitivity dB range WNL within normal limits WNL 0 - 20 SNHL sensorineural hearing loss Mild 20-40 CHL conductive hearing loss Moderate 40-55 MHL mixed hearing loss Moderately-Severe 55-70 WRS word recognition score Severe 70-90 ME middle ear Profound 90 + TM tympanic membrane documented in this encounter [facility] 09-15-2024 Note HNO ID: [id number] Author: ANDRÉS OTT OTR/Olga Service: ? Author Type: Occupational Therapist Type: Progress Notes Filed: 09/15/2024 12:30 Note Text: Episode Visit Count: 2 Therapist That Will Accept/Oversee The Plan Of Care: Hannah Ott Start of Care Date: 09/06/24 Onset Date: 08/09/24 Plan of Care Certification Date: 09/15/24 Next Certification Due Date: 11/14/24 Patient Identified by Name and Date of : Yes REHABILITATION AND SPORTS THERAPY OCCUPATIONAL THERAPY RE-EVALUATION PLAN OF CARE UPDATE: Initiate active range of motion / transfer training in 4 weeks. Patient to contact OT for orthosis modifications as needed. 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 The patient has progressed toward some goals.Orthosis modifications made today at the request of MCKENNA. Patient verbalized good understanding of postoperative guidelines and precautions. Dr. Pino in agreement with delaying initiating range of motion for 4 weeks, until after next ortho appointment. Range of motion and strength testing not performed today due to post operative guidelines. Patient continues to present with impairments in overall function, patient reported outcome measures, and range of motion that interfere with lifting, physical activities, gripping, pinching, twisting, pushing, pulling, carrying, weight bearing . Current prognosis is Good due to: good overall health status . The patient will benefit from continued skilled therapy services to meet the updated goals for this plan of care as noted below. PLAN FOR NEXT VISIT: Patient to contact OT for orthosis modifications as needed. Initiate AROM / transfer training in 4 weeks after ortho follow up. Goals for Episode of Care: established 09/06/24 Progress note due 10/06 Re-cert due 12/05 Patient reported outcome of physical function will increase T-score by a minimum 5 points.(N A) Patient will report a good understanding of diagnosis and OT recommendations for progression of program.(PA, ongoing) Patient will increase AROM of Left hand to WFL of L thumb in order to be able to improve function for moderate to heavy functional tasks. ( N T) Patient will independently demonstrate correct application of CUSTOM orthosis and verbalize understanding of proper wear/care. (A) Patient will increase Left chair pad maker strength to Within 50% R hand, so that patient will be able to improve function for basic self-care tasks and moderate to heavy functional tasks. ( N T, not indicated Patient will increase Left pinch within 50% so that patient will be able to improve function for basic self-care tasks and moderate to heavy functional tasks. ( N T) Patient will report a good understanding of edema control, scar / wound management throughout therapy plan of care to promote non-adherent / non-tender soft tissue.(PA, ongoing) Patient will demonstrate or report an increase in Fine Motor Coordination through testing or performance compared to initial evaluation. ( N T ) Goal Montalvo A=achieved PA=partially achieved NA=not achieved NT=not tested Patient Goals: Resume normal function of hand Time Frame for Goals and Treatment : 11/14/24 Patient Goals: Resume normal function of hand Planned Interventions, Frequency, and Duration: 1x every other week, 8 weeks Total Number of Visits Planned: 5 Planned Treatment Interventions: Custom orthosis fabrication, Therapeutic exercise (93576), Therapeutic activities (16986), Manual therapy (35828), Self-skilled nursing management (51621) PLAN FOR NEXT VISIT: Patient to contact OT for orthosis modifications as needed. Initiate AROM / transfer training in 4 weeks after ortho follow up. SUBJECTIVE: Splint needs to be fixed. Patient followed up with orthopedics yesterday, sutures removed. Functional Limitations: lifting, physical activities, gripping, pinching, twisting, pushing, pulling, carrying, weight bearing Pain: Pain Pain Level: 0 Pain Location: Hand - Left Post Treatment Pain Post Treatment Pain Level: No Change PROMIS Scales 09/06/2024 08/25/2024 08/25/2023 Higher is Better Phys Func - T Score 51 (within normal limits) 49 (within normal limits) Phys Func - Percentile 54 46 Self-Eff Symptom - T Score 53 (Average) 48 (Average) Self-Eff Symptom - Percentile 62 42 Upper Extremity - T Score 47 (within normal limits) Upper Extremity - Percentile 38 Proxy-reported T-scores: mean of general population = 50. 5 points is clinically meaningfully difference Percentiles provide an indication of how the patient's score ranks in relation to the general population. Higher percentile rankings indicate better function/quality of life. 50th percentile is the average of the general population and indicates half of respondents had a worse score. OBJECTIVE MEASURES WITH LEVEL OF (more content not included)... [facility] 09-15-2024 History of Presen t illness Narrative Images from the original note were not included. Episode Visit Count: 2 Therapist That Will Accept/Oversee The Plan Of Care: Hannah Ott Start of Care Date: 09/06/24 Onset Date: 08/09/24 Plan of Care Certification Date: 09/15/24 Next Certification Due Date: 11/14/24 Patient Identified by Name and Date of : Yes REHABILITATION AND SPORTS THERAPY OCCUPATIONAL THERAPY RE-EVALUATION PLAN OF CARE UPDATE: Initiate active range of motion / transfer training in 4 weeks. Patient to contact OT for orthosis modifications as needed. 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 The patient has progressed toward some goals.Orthosis modifications made today at the request of PA-C. Patient verbalized good understanding of postoperative guidelines and precautions. Dr. Pino in agreement with delaying initiating range of motion for 4 weeks, until after next ortho appointment. Range of motion and strength testing not performed today due to post operative guidelines. Patient continues to present with impairments in overall function, patient reported outcome measures, and range of motion that interfere with lifting, physical activities, gripping, pinching, twisting, pushing, pulling, carrying, weight bearing . Current prognosis is Good due to: good overall health status . The patient will benefit from continued skilled therapy services to meet the updated goals for this plan of care as noted below. PLAN FOR NEXT VISIT: Patient to contact OT for orthosis modifications as needed. Initiate AROM / transfer training in 4 weeks after ortho follow up. Goals for Episode of Care: established 09/06/24 Progress note due 10/06 Re-cert due 12/05 Patient reported outcome of physical function will increase T-score by a minimum 5 points.(N A) Patient will report a good understanding of diagnosis and OT recommendations for progression of program.(PA, ongoing) Patient will increase AROM of Left hand to WFL of L thumb in order to be able to improve function for moderate to heavy functional tasks. ( N T) Patient will independently demonstrate correct application of CUSTOM orthosis and verbalize understanding of proper wear/care. (A) Patient will increase Left chair pad maker strength to Within 50% R hand, so that patient will be able to improve function for basic self-care tasks and moderate to heavy functional tasks. ( N T, not indicated Patient will increase Left pinch within 50% so that patient will be able to improve function for basic self-care tasks and moderate to heavy functional tasks. ( N T) Patient will report a good understanding of edema control, scar / wound management throughout therapy plan of care to promote non-adherent / non-tender soft tissue.(PA, ongoing) Patient will demonstrate or report an increase in Fine Motor Coordination through testing or performance compared to initial evaluation. ( N T ) Goal [place] A=achieved PA=partially achieved NA=not achieved NT=not tested Patient Goals: Resume normal function of hand Time Frame for Goals and Treatment : 11/14/24 Patient Goals: Resume normal function of hand Planned Interventions, Frequency, and Duration: 1x every other week, 8 weeks Total Number of Visits Planned: 5 Planned Treatment Interventions: Custom orthosis fabrication, Therapeutic exercise (52042), Therapeutic activities (66919), Manual therapy (47273), Self-skilled nursing management ([id number]) PLAN FOR NEXT VISIT: Patient to contact OT for orthosis modifications as needed. Initiate AROM / transfer training in 4 weeks after ortho follow up. SUBJECTIVE: Splint needs to be fixed. Patient followed up with orthopedics yesterday, sutures removed. Functional Limitations: lifting, physical activities, gripping, pinching, twisting, pushing, pulling, carrying, weight bearing Pain: Pain Pain Level: 0 Pain Location: Hand - Left Post Treatment Pain Post Treatment Pain Level: No Change PROMIS Scales 09/06/2024 08/25/2024 08/25/2023 Higher is Better Phys Func - T Score 51 (within normal limits) 49 (within normal limits) Phys Func - Percentile 54 46 Self-Eff Symptom - T Score 53 (Average) 48 (Average) Self-Eff Symptom - Percentile 62 42 Upper Extremity - T Score 47 (within normal limits) Upper Extremity - Percentile 38 Proxy-reported T-scores: mean of general population = 50. 5 points is clinically meaningfully difference Percentiles provide an indication of how the patient's score ranks in relation to the general population. Higher percentile rankings indicate better function/quality of life. 50th percentile is the average of the general population and indicates half of respondents had a worse score. OBJECTIVE MEASURES WITH LEVEL OF FUNCTION: Vision Vision Deficits: Wears corrective lenses Hand Skin / Wound: Scar Scar: Non-tender Edema Location: Left thumb/ hand Edema Description: Mild Edema Measurements: Wrist (DWC) (cm) R Wrist (DWC) (cm): 20.5 L Wrist (DWC) (cm): 20 Shoulder AROM: WFL Elbow AROM: WFL Wrist AROM: Testing not indicated Right Hand AROM: WFL Left Hand AROM: WFL Thumb AROM: Testing not indicated Strength: (Testing not indicated) Sensation: Denies tingling or numbness Dexterity/Coordination: Not Tested UE AROM Right Hand AROM: WFL Left Hand AROM: WFL Thumb AROM: Testing not indicated TREATMENT: Re-evaluation: Performed due to return of patient to therapy for same diagnosis. Self-Assisted Management: 1: Skilled instruction provided re: diagnosis, post operative guidelinesp post tendon transfer surgery and precautions related to ADL's. Continue NWB status. Ok to use fingers for light ADL's self care, but he is to avoid any resistive of heavy lifting, gripping, twising with the right hand. 2: Skilled instruction provided re: edema management , continue elevation and active fisting of ringers. Skilled Intervention: Reviewed patient specific diagnosis in relation to activities of daily living/home management. Activity progression based on professional judgement. Orthotic/Prosthetic Adjust/Train (Subsequent): OT Orthotic/Prosthetic Adjust/Train (Subsequent): Significant revision to orthosis: revised long opponens to wrist thumb static extension. Wrist positioned in 30 extension thumb midway between radial and palmar abduction and thumb MP extension and IP in 10 degrees hyperextension. Skilled Intervention:Clinical knowledge and skills required for custom orthotic fabrication and wearing schedule Technical skill required for adjustment and/or modification of orthosis. Patient/caregiver was educated in correct method for donning/doffing orthosis as well as wear and care of orthosis. 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 Author Type: Physician Head Grease Maker Type: Progress Notes Filed: 09/14/2024 12:46 Note Text: ORTHOPAEDIC OFFICE NOTE Patient presents with: Left Wrist - Post Op: Left wrist palmeris longus to left thumb Postop Visit: 1st POV, Post op day 12 SURGEON Pancho Pino MD PROCEDURE Transfer left palmaris longus tendon to left extensor pollicis longus tendon PROCEDURE DATE: 09/02/24 HISTORY OF PRESENT ILLNESS Ru Workman presents for post operative follow up 12 days from surgery. Patient states he is doing well today. Denies having any pain at this time. He has been wearing his custom orthosis at all times. No other complaints. Current Concerns: None Pain control: well controlled Currently taking pain medication: No Resting, icing, and elevating: Yes Fever, chills, purulent drainage, or other signs of infection: No Nausea, vomiting, SOB, chest pain, or calf pain: No PAIN EVALUATION No data found in the last 1 encounters. PHYSICAL EXAMINATION of LEFT WRIST/THUMB: Incision lines are intact, no drainage noted. Scars are maturing nicely and Sutures removed without difficulty. Patient tolerated procedure well Mild edema noted to the dorsal aspect of left thumb and wrist. No erythema, cellulitis or drainage Patient's left thumb is held in a flexed position at the MP joint level. ROM: No active extension of left thumb. Unable to hold thumb in an extended position when I passively extend his thumb up for him. Sensation:Normal sensation Brisk cap refill, +2 radial pulse palpated IMAGING No new imaging obtained at today's visit ASSESSMENT AND PLAN 1. Postoperative state - ICD9: V45.89, ICD10: Z98.890 (primary diagnosis) 2. Rupture of extensor tendon of finger - ICD9: 842.10, ICD10: S56.419A Pt education provided on postop protocol. Discussed patient's case/exam with Dr. Pino. He is in agreement with the following treatment plan. -Sutures removed in office today without difficulty. Patient tolerated this well. -Based on patient's exam findings and thumb positioning, there is concern for tendon transfer failure. We would like to give this more time. -Patient's custom orthosis needs to be adjusted. It does not hold his thumb in the appropriate hyperextended IP joint position. OT was contacted for follow-up and adjustment on this. -No use of left thumb. Patient is to keep his thumb extended at all times. -Ice and elevate as needed -NSAIDs/Tylenol as needed Follow up in 4 weeks - Patient instructed to call office with questions or concerns. This note was generated via [employer] voice dictation and may contain errors related to that system such as spelling, grammar, punctuation, gender, words, and phrases that may be inappropriate. All reasonable efforts were made to correct dictation errors, however, they still may occur given the software used. Wiliam Mikulski MPAS, PA-C [facility] 09-14-2024 History of Presen t illness Narrative ORTHOPAEDIC OFFICE NOTE Patient presents with: Left Wrist - Post Op: Left wrist palmeris longus to left thumb Postop Visit: 1st POV, Post op day 12 SURGEON Pancho Pino MD PROCEDURE Transfer left palmaris longus tendon to left extensor pollicis longus tendon PROCEDURE DATE: 09/02/24 HISTORY OF PRESENT ILLNESS Ru Workman presents for post operative follow up 12 days from surgery. Patient states he is doing well today. Denies having any pain at this time. He has been wearing his custom orthosis at all times. No other complaints. Current Concerns: None Pain control: well controlled Currently taking pain medication: No Resting, icing, and elevating: Yes Fever, chills, purulent drainage, or other signs of infection: No Nausea, vomiting, SOB, chest pain, or calf pain: No PAIN EVALUATION No data found in the last 1 encounters. PHYSICAL EXAMINATION of LEFT WRIST/THUMB: Incision lines are intact, no drainage noted. Scars are maturing nicely and Sutures removed without difficulty. Patient tolerated procedure well Mild edema noted to the dorsal aspect of left thumb and wrist. No erythema, cellulitis or drainage Patient's left thumb is held in a flexed position at the MP joint level. ROM: No active extension of left thumb. Unable to hold thumb in an extended position when I passively extend his thumb up for him. Sensation:Normal sensation Brisk cap refill, +2 radial pulse palpated IMAGING No new imaging obtained at today's visit ASSESSMENT AND PLAN 1. Postoperative state - ICD9: V45.89, ICD10: Z98.890 (primary diagnosis) 2. Rupture of extensor tendon of finger - ICD9: 842.10, ICD10: S56.419A Pt education provided on postop protocol. Discussed patient's case/exam with Dr. Pino. He is in agreement with the following treatment plan. -Sutures removed in office today without difficulty. Patient tolerated this well. -Based on patient's exam findings and thumb positioning, there is concern for tendon transfer failure. We would like to give this more time. -Patient's custom orthosis needs to be adjusted. It does not hold his thumb in the appropriate hyperextended IP joint position. OT was contacted for follow-up and adjustment on this. -No use of left thumb. Patient is to keep his thumb extended at all times. -Ice and elevate as needed -NSAIDs/Tylenol as needed Follow up in 4 weeks - Patient instructed to call office with questions or concerns. This note was generated via [employer] voice dictation and may contain errors related to that system such as spelling, grammar, punctuation, gender, words, and phrases that may be inappropriate. All reasonable efforts were made to correct dictation errors, however, they still may occur given the software used. Wiliam FRANKEL PA-C [facility] documented in this encounter [facility] 09-12-2024 Note HNO ID: [id number] Author: LYSSA COLÓN MD Service: ? Author Type: Physician Type: Progress Notes Filed: 09/12/2024 16:38 Note Text: MORGAN Ru Workman is a 69 year old male who presents with hearing loss. Patient complains of hearing loss and was noted to have wax in both ears. ROS General Weight loss: No Fatigue: No Night sweats:No Cardiac Chest pain:No Fast heart rate:No Swelling in the feet:No Respiratory Short of breath:No Cough:No Wheezing:No Gastrointestinal Nausea:No Vomiting:No Indigestion:No Past medical history, family history, and social history reviewed. PE There were no vitals taken for this visit. General: Patient is awake, alert, NAD. Voice is normal. Skin: normal Eyes: Extraocular motion and Gaze is normal. Ears: Right external auditory canal is normal. TMJ: normal. Bilateral cerumen removed Right tympanic membranes normal. Left external auditory canal is normal. Left tympanic membrane normal. Nose: Septum is normal. Turbinates are normal. Nasopharynx:normal Oral Cavity/Oropharynx: Lips normal Dentition normal Tongue normal. Tonsils normal. Palate and uvula normal. Pharynx posterior normal Hypopharynx: Base of tongue normal Pyriform sinus normal. Larynx: Vocal cords normal. Epiglottis normal. Post cricoid normal. Salivary glands: Parotid normal. Submandibular and sublingual normal. Thyroid: normal. Lymphatic/Neck: Lymph nodes normal. Neurologic: Facial nerve normal. ASSESSMENT/PLAN: 1. Hearing loss, unspecified hearing loss type, unspecified laterality - ICD9: 389.9, ICD10: H91.90 (primary diagnosis) 2. Impacted cerumen of both ears - ICD9: 380.4, ICD10: H61.23 Follow-up as needed Lyssa Colón MD Findings will be communicated to the referring physician via mail or electronic medical record. [facility] 09-12-2024 History of Presen t illness Narrative HPI Ru Workman is a 69 year old male who presents with hearing loss. Patient complains of hearing loss and was noted to have wax in both ears. ROS General Weight loss: No Fatigue: No Night sweats:No Cardiac Chest pain:No Fast heart rate:No Swelling in the feet:No Respiratory Short of breath:No Cough:No Wheezing:No Gastrointestinal Nausea:No Vomiting:No Indigestion:No Past medical history, family history, and social history reviewed. PE There were no vitals taken for this visit. General: Patient is awake, alert, NAD. Voice is normal. Skin: normal Eyes: Extraocular motion and Gaze is normal. Ears: Right external auditory canal is normal. TMJ: normal. Bilateral cerumen removed Right tympanic membranes normal. Left external auditory canal is normal. Left tympanic membrane normal. Nose: Septum is normal. Turbinates are normal. Nasopharynx:normal Oral Cavity/Oropharynx: Lips normal Dentition normal Tongue normal. Tonsils normal. Palate and uvula normal. Pharynx posterior normal Hypopharynx: Base of tongue normal Pyriform sinus normal. Larynx: Vocal cords normal. Epiglottis normal. Post cricoid normal. Salivary glands: Parotid normal. Submandibular and sublingual normal. Thyroid: normal. Lymphatic/Neck: Lymph nodes normal. Neurologic: Facial nerve normal. ASSESSMENT/PLAN: 1. Hearing loss, unspecified hearing loss type, unspecified laterality - ICD9: 389.9, ICD10: H91.90 (primary diagnosis) 2. Impacted cerumen of both ears - ICD9: 380.4, ICD10: H61.23 Follow-up as needed Lyssa Colón MD Findings will be communicated to the referring physician via mail or electronic medical record. documented in this encounter [facility] 09-12-2024 History of Presen t illness Narrative [facility] AUDIOLOGIC EVALUATION REPORT Name: Ru Workman [facility]#: [id number] Date of Service: 09/12/2024 Date of : 1955 Age: [age] year old Referred by: No ref. provider found Referred for: Evaluation of suspected change in hearing, tinnitus, or balance. 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 Risk of Falls Documentation for over 65 years old: No history of falls reported so minimal to no risk IMPRESSIONS Testing today was deferred due to occluding cerumen in each ear. OTOSCOPY RIGHT EAR: Otoscopic inspection revealed ear canal has significant amount of cerumen which appeared to be occluding preventing visualization of the tympanic membrane. LEFT EAR: Otoscopic inspection revealed ear canal has significant amount of cerumen which appeared to be occluding preventing visualization of the tympanic membrane. RECOMMENDATIONS * Consider otologic referral to Lyssa Colón MD for an ear cleaning * Return after ear cleaning to complete audiogram Patricia Montoya, [facility] Lens Engraver copied to: No ref. provider found MONTALVO Abbrev- iation Definition Degree of hearing sensitivity dB range WNL within normal limits WNL 0 - 20 SNHL sensorineural hearing loss Mild 20-40 CHL conductive hearing loss Moderate 40-55 MHL mixed hearing loss Moderately-Severe 55-70 WRS word recognition score Severe 70-90 ME middle ear Profound 90 + TM tympanic membrane documented in this encounter [facility] 09-12-2024 Note HNO ID: [id number] Author: EZIO RICHARDSON AUD Service: ? Author Type: Lens Engraver Type: Progress Notes Filed: 09/19/2024 09:44 Note Text: [facility] [place] AUDIOLOGIC EVALUATION REPORT Name: Ru Workman [facility]#: [id number] Date of Service: 09/12/2024 Date of : 1955 Age: [age] year old Referred by: No ref. provider found Referred for: Evaluation of suspected change in hearing, tinnitus, or balance. 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 Risk of Falls Documentation for over 65 years old: No history of falls reported so minimal to no risk IMPRESSIONS Testing today was deferred due to occluding cerumen in each ear. OTOSCOPY RIGHT EAR: Otoscopic inspection revealed ear canal has significant amount of cerumen which appeared to be occluding preventing visualization of the tympanic membrane. LEFT EAR: Otoscopic inspection revealed ear canal has significant amount of cerumen which appeared to be occluding preventing visualization of the tympanic membrane. RECOMMENDATIONS * Consider otologic referral to Lyssa Colón MD for an ear cleaning * Return after ear cleaning to complete audiogram Patricia Montoya, [facility] Clinical and [facility] Im[facility] Lens Engraver copied to: No ref. provider found MONTALVO Abbrev- iation Definition Degree of hearing sensitivity dB range WNL within normal limits WNL 0 - 20 SNHL sensorineural hearing loss Mild 20-40 CHL conductive hearing loss Moderate 40-55 MHL mixed hearing loss Moderately-Severe 55-70 WRS word recognition score Severe 70-90 ME middle ear Profound 90 + TM tympanic membrane [facility] 09-06-2024 Note HNO ID: [id number] Author: GELY MARRERO OTR/Olga Service: ? Author Type: Occupational Therapist Type: Progress Notes Filed: 09/06/2024 09:52 Note Text: Summary: OT evaluation Episode Visit Count: 1 Therapist That Will Accept/Oversee The Plan Of Care: Gely Marrero Start of Care Date: 09/06/24 Onset Date: 08/09/24 Plan of Care Certification Date: 09/06/24 Next Certification Due Date: 12/05/24 Patient Identified by Name and Date of : Yes [facility]ILITATION AND SPORTS THERAPY OCCUPATIONAL THERAPY EVALUATION PLAN OF CARE: Assessment: Ru Nataliia Jacinta presents with diagnosis of L hand with EPL tendon rupture s/p tendon transfer from palmaris longus that interferes with lifting, physical activities, gripping, pinching, twisting, pushing, pulling, carrying, weight bearing . The patient presents with impairments in coordination, joint mobility, overall function, range of motion, sensation, soft tissue healing, strength, tissue tenderness, and wound healing. PROMIS? (Patient-Reported Outcomes Measurement Information System) scores were reviewed and identified as a rehabilitation concern. Prognosis for therapy is Good due to: good overall health status . The patient will benefit from skilled therapy services to meet the goals established for this plan of care as noted below. Goals for Episode of Care: established 09/06/24 Patient reported outcome of physical function will increase T-score by a minimum 5 points. Patient will report a good understanding of diagnosis and OT recommendations for progression of program. Patient will increase AROM of Left hand to WFL of L thumb in order to be able to improve function for moderate to heavy functional tasks. Patient will independently demonstrate correct application of CUSTOM orthosis and verbalize understanding of proper wear/care. Patient will increase Left chair pad maker strength to Within 50% R hand, so that patient will be able to improve function for basic self-care tasks and moderate to heavy functional tasks. Patient will increase Left pinch within 50% so that patient will be able to improve function for basic self-care tasks and moderate to heavy functional tasks. Patient will report a good understanding of edema control, scar / wound management throughout therapy plan of care to promote non-adherent / non-tender soft tissue. Patient will demonstrate or report an increase in Fine Motor Coordination through testing or performance compared to initial evaluation. Patient Goals: Resume normal function of hand Planned Interventions, Frequency, and Duration: Current Frequency: 1x every other week Duration: 8 weeks Total Number of Visits Planned: 4 Planned Treatment Interventions: Custom orthosis fabrication, Therapeutic exercise (41801), Therapeutic activities (02977), Manual therapy (22228), Self-skilled nursing management (14456) PLAN FOR NEXT VISIT:cont. per protocol Patient demonstrates good understanding of plan of care and treatment. The above goals and plan of care were discussed and agreed upon by patient/family. SUBJECTIVE: OT initial evaluation: pt reports rupture of L thumb; previously had a rupture and surgery 8 years ago. Pt had palmaris longus transfer with Dr. 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 Environment Patient Lives With: Spouse Assistance Available: 24-Hour Equipment Owned: Shower Chair, Crutch(es) Pain: Pain Pain Level: 0 Pain Location: Hand - Left Description: Aching Post Treatment Pain Post Treatment Pain Level: No Change PROMIS Scales 09/06/2024 08/25/2024 08/25/2023 Higher is Better Phys Func - T Score 51 (within normal limits) 49 (within normal limits) Phys Func - Percentile 54 46 Self-Eff Symptom - T Score 53 (Average) 48 (Average) Self-Eff Symptom - Percentile 62 42 Upper Extremity - T Score 47 (within normal limits) Upper Extremity - Percentile 38 Proxy-reported T-scores: mean of general population = 50. 5 points is clinically meaningfully difference Percentiles provide an indication of how the patient's score ranks in relation to the general population. Higher percentile rankings indicate better function/qualit (more content not included)... [facility] 09-06-2024 History of Presen t illness Narrative Summary: OT evaluation Images from the original note were not included. Episode Visit Count: 1 Therapist That Will Accept/Oversee The Plan Of Care: Gely Marrero Start of Care Date: 09/06/24 Onset Date: 08/09/24 Plan of Care Certification Date: 09/06/24 Next Certification Due Date: 12/05/24 Patient Identified by Name and Date of : Yes [facility] OCCUPATIONAL THERAPY EVALUATION PLAN OF CARE: Assessment: Ru Workman presents with diagnosis of L hand with EPL tendon rupture s/p tendon transfer from palmaris longus that interferes with lifting, physical activities, gripping, pinching, twisting, pushing, pulling, carrying, weight bearing . The patient presents with impairments in coordination, joint mobility, overall function, range of motion, sensation, soft tissue healing, strength, tissue tenderness, and wound healing. PROMIS (Patient-Reported Outcomes Measurement Information System) scores were reviewed and identified as a rehabilitation concern. Prognosis for therapy is Good due to: good overall health status . The patient will benefit from skilled therapy services to meet the goals established for this plan of care as noted below. Goals for Episode of Care: established 09/06/24 Patient reported outcome of physical function will increase T-score by a minimum 5 points. Patient will report a good understanding of diagnosis and OT recommendations for progression of program. Patient will increase AROM of Left hand to WFL of L thumb in order to be able to improve function for moderate to heavy functional tasks. Patient will independently demonstrate correct application of CUSTOM orthosis and verbalize understanding of proper wear/care. Patient will increase Left chair pad maker strength to Within 50% R hand, so that patient will be able to improve function for basic self-care tasks and moderate to heavy functional tasks. Patient will increase Left pinch within 50% so that patient will be able to improve function for basic self-care tasks and moderate to heavy functional tasks. Patient will report a good understanding of edema control, scar / wound management throughout therapy plan of care to promote non-adherent / non-tender soft tissue. Patient will demonstrate or report an increase in Fine Motor Coordination through testing or performance compared to initial evaluation. Patient Goals: Resume normal function of hand Planned Interventions, Frequency, and Duration: Current Frequency: 1x every other week Duration: 8 weeks Total Number of Visits Planned: 4 Planned Treatment Interventions: Custom orthosis fabrication, Therapeutic exercise (42088), Therapeutic activities (56729), Manual therapy (03331), Self-skilled nursing management (72173) PLAN FOR NEXT VISIT:cont. per protocol Patient demonstrates good understanding of plan of care and treatment. The above goals and plan of care were discussed and agreed upon by patient/family. SUBJECTIVE: OT initial evaluation: pt reports rupture of L thumb; previously had a rupture and surgery 8 years ago. Pt had palmaris longus transfer with Dr. 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 Environment Patient Lives With: Spouse Assistance Available: 24-Hour Equipment Owned: Shower Chair, Crutch(es) Pain: Pain Pain Level: 0 Pain Location: Hand - Left Description: Aching Post Treatment Pain Post Treatment Pain Level: No Change PROMIS Scales 09/06/2024 08/25/2024 08/25/2023 Higher is Better Phys Func - T Score 51 (within normal limits) 49 (within normal limits) Phys Func - Percentile 54 46 Self-Eff Symptom - T Score 53 (Average) 48 (Average) Self-Eff Symptom - Percentile 62 42 Upper Extremity - T Score 47 (within normal limits) Upper Extremity - Percentile 38 Proxy-reported T-scores: mean of general population = 50. 5 points is clinically meaningfully difference Percentiles provide an indication of how the patient's score ranks in relation to the general population. Higher percentile rankings indicate better function/quality of life. 50th percentile is the average of the general population and indicates half of respondents had a worse score. OBJECTIVE MEASURES WITH LEVEL OF FUNCTION: Vision Vision Deficits: Wears corrective lenses Hand Skin / Wound: Sutures Sutures: Steri-strips Edema Location: L wrist / thumb Edema Description: Mild Shoulder AROM: WFL Elbow AROM: WFL Wrist AROM: Left Limitation Right Hand AROM: WFL Left Hand AROM: All Digits Thumb AROM: Left Limitation Strength: Clear Coat Sprayer Position 2, Pinch Meter Sensation: Denies tingling or numbness Dexterity/Coordination: Fine Motor UE AROM R UE AROM: WFL L UE AROM: MP/IPS digits excluding thumb WFL Right Hand AROM: WFL Left Hand AROM: All Digits Thumb AROM: Left Limitation Instrumental Activities of Daily Living Difficulty noted with: Driving, Sleeping, Shopping, Laundry, Cleaning, Cooking, Meal/Beverage Prep Meal/Beverage Prep: Modified Independent Cooking: Modified Independent Cleaning: Modified Independent Laundry: Modified Independent Driving: Modified Independent Education: Education Learning Preferences: Demonstration, Explanation, Printed Materials, Performance Barriers: None Learning/educational needs: Home exercise program, Procedure / Surgery Education Provided: Yes, see treatment interventions for education provided Education Provided To: Patient Education Mode/Type: Demonstration, Explanation/Discussion, Literature/Printed Materials, Performance Response to Education/Teach Back: States/Identifies, Return Demonstration, Requires Review/Additional Education TREATMENT: OT Treatment Interventions : Therapeutic Exercise, Self-Assisted Management, Custom Orthosis/Splint Fabrication Evaluation Evaluation Therapeutic Exercise: 1: Review of HEP for AROM of uninvolved digits; Skilled Intervention: Patient was educated in proper exercise technique and purpose for exercises. Skilled judgment was used in selection of appropriate interventions. Correct performance of therapeutic exercises was facilitated with verbal and visual cuing. Self-Assisted Management: 1: Education for cont. splint use except for bathing. Cont nighttime wear. 2: Education for NWB to L hand 3: Education for continued skin check / skin integrity of sutures; light water with no submersion 4: Education for ice; Can ice after exercises if needed for pain relief and swelling. 5: Education for precautions and purpose of compression sleeve Skilled Intervention: Skilled judgment in the selection of proper modification for activity of daily living/home management based on clinical presentation, deficits, and needs. Provided written instruction for activities of daily living techniques to facilitate proper performance and compliance. Reviewed patient specific diagnosis in relation to activities of daily living/home management. Billing * Evaluation Low Complexity: 1 Unit Therapeutic Exercise Treatment Minutes: 5 Self-Care/Home Management Treatment Minutes: 10 * L 3808 WHFO w/out joints (long opponens, thumb spica, intrinsic gutter, resting, anti-spasticity, EXOS, dorsal block) Quantity: 1 Fabrication time for custom splint (minutes): 15 Skilled Treatment Time Minutes (timed and untimed codes): 40 Total Session Time (minutes): 40 Session Start Time : 824 Session Stop Time : 904 NIKO Rowe documented in this encounter [facility] 08-29-2024 Telephone encounter Note Patient's Malgorzata on HIPAA informed of results. Dana Davis MA [facility] 08-29-2024 Miscellaneous Notes Patient's Malgorzata on HIPAA informed of results. Dana Davis MA ----- Message from Ryan Edwards APRN.WAFFLE MACHINE OPERATOR sent at 08/29/2024 1:18 PM EDT ----- Cmp unremarkable sugar borderline Lipids improved at or near goal Tsh and cbc normal documented in this encounter [facility] 08-29-2024 Telephone encounter Note ----- Message from Ryan Edwards APRN.WAFFLE MACHINE OPERATOR sent at 08/29/2024 1:18 PM EDT ----- Cmp unremarkable sugar borderline Lipids improved at or near goal Tsh and cbc normal [facility] 08-29-2024 Note HNO ID: [id number] Author: DANA DAVIS MA Service: ? Author Type: Associate Director Of Biostatistics Type: Progress Notes Filed: 08/29/2024 08:39 Note Text: Patient here for INR check. Last INR was 1.8 on 08/15/24. Patient is currently taking coumadin 6 mg and 8 mg all other days. Denies missing any doses. Patient's INR today was 2.2. Per conversation with Ryan Edwards CNP patient informed ot continue current dose and recheck in 1 month. Dana Davis MA [facility] 08-29-2024 History of Presen t illness Narrative Patient here for INR check. Last INR was 1.8 on 08/15/24. Patient is currently taking coumadin 6 mg and 8 mg all other days. Denies missing any doses. Patient's INR today was 2.2. Per conversation with Ryan Edwards CNP patient informed ot continue current dose and recheck in 1 month. Dana Davis MA documented in this encounter [facility] 08-26-2024 Note HNO ID: [id number] Author: ?, ?, ? Service: ? Author Type: ? Type: Progress Notes Filed: 08/31/2024 09:39 Note Text: SURG [facility] 08-26-2024 History of Presen t illness Narrative SURG documented in this encounter [facility] 08-26-2024 History of Presen t illness Narrative Radiology Service Progress Note PATIENT NAME: Ru Workman DATE OF SERVICE: August 26, 2024 TIME: 8:29 AM PATIENT IDENTITY VERIFICATION COMPLETED USING TWO (2) IDENTIFIERS: Name and Date of confirmed by patient verbally. FALL SCREENING: Has the patient had 2 falls in the last year or 1 fall with injury or currently using an Ambulatory Assistive Device (Walker, Cane, Wheelchair, Crutches, etc.)? No PATIENT GENDER DATA: Assigned male at PATIENT RELEVANT IMPLANT DATA REVIEWED: Not Applicable PATIENT PRESENTS WITH AN IMPLANTABLE OR ATTACHED CONSTRUCTION CONSULTANT: No RADIOLOGY DEPARTMENT: General X-ray: Exam(s) Completed: Upper Extremity X-Ray(s): Hand, left PERIPHERAL IV DATA: Not applicable SIGNED BY: SARAN Traore August 26, 2024 8:29 AM documented in this encounter [facility] 08-26-2024 Note HNO ID: [id number] Author: ALPESH ORDAZ CT Service: Radiology Author Type: Technologist Type: Progress Notes Filed: 08/26/2024 08:29 Note Text: Radiology Service Progress Note PATIENT NAME: Ru Workman DATE OF SERVICE: August 26, 2024 TIME: 8:29 AM PATIENT IDENTITY VERIFICATION COMPLETED USING TWO (2) IDENTIFIERS: Name and Date of confirmed by patient verbally. FALL SCREENING: Has the patient had 2 falls in the last year or 1 fall with injury or currently using an Ambulatory Assistive Device (Walker, Cane, Wheelchair, Crutches, etc.)? No PATIENT GENDER DATA: Assigned male at PATIENT RELEVANT IMPLANT DATA REVIEWED: Not Applicable PATIENT PRESENTS WITH AN IMPLANTABLE OR ATTACHED CONSTRUCTION CONSULTANT: No RADIOLOGY DEPARTMENT: General X-ray: Exam(s) Completed: Upper Extremity X-Ray(s): Hand, left PERIPHERAL IV DATA: Not applicable SIGNED BY: SARAN Traore August 26, 2024 8:29 AM [facility] 08-26-2024 History of Presen t illness Narrative Patient presents with: Left Thumb - Established Patient, Pain HISTORY OF PRESENT ILLNESS Ru Workman presents to the office for new issue: left thumb pain. Consultation requested by Ryan Edwards APRN.CNP for an opinion regarding left thumb pain. 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 He underwent an EIP to EPL transfer in [place] which was successful.. He now notices that he Is unable to extend his thumb over the last week. He believes that one of his tendons ruptured. The patient has been taking some herbal medications which he feels has been beneficial for his pain. Denies any pain at this time. Location: Left thumb Duration of symptoms: 1 week Treatments tried include See above Symptoms have Worsened REVIEW OF SYSTEMS Cardiovascular ROS:No history of chest pain, palpitation, orthopnea, cyanosis, pedal edema Neurologic ROS: Numbness and Tingling: No PAST MEDICAL HISTORY Past medical, surgical, family, and social histories have been reviewed and updated with the patient today and are located elsewhere in the medical record. Diabetes:No ALLERGIES ALLERGIES No Known Allergies PHYSICAL EXAMINATION There were no vitals taken for this visit. There is no height or weight on file to calculate BMI. General Appearance Well appearing, alert, in no acute distress, well-hydrated, well nourished. Alert and oriented times: 3 Normal affect times: 3 Appears stated age and well nourished Gait and station:normal Left Upper Extremity Exam: Inspection demonstrates a droop posture at the left thumb Well-healed surgical incisions consistent with prior tendon transfer There is some nonspecific synovitis noted along the dorsal extensors Tenderness to palpation: Nontender about the wrist ROM: No active thumb IP extension Full composite fist, all digits tip to palm Palmaris longus tendon is present Sensation intact median, radial, ulnar nerve distribution 2+ radial pulse REVIEW OF STUDIES X-rays 08/26/24 3 views of the left hand demonstrate degenerative arthritis throughout the radiocarpal, intercarpal articulations. A headless screw is present in the interval between the lunate and triquetrum. A small dorsal osteophyte is noted at the midcarpal joint. ASSESSMENT/PLAN: 1. Left hand pain - ICD9: 729.5, ICD10: M79.642 (primary diagnosis) - XR HAND GENERAL 3V PA/LAT/OBL LEFT - CONSULT TO BOAT DESIGNER 2. Pain of left thumb - ICD9: 729.5, ICD10: M79.645 3. Rupture of extensor tendon of finger - ICD9: 842.10, ICD10: S56.419A - CONSULT TO BOAT DESIGNER 4. Crepitant synovitis of wrist, left - ICD9: 727.00, ICD10: M70.032 - C-REACTIVE PROTEIN - RHEUMATOID FACTOR - SEDIMENTATION RATE, WESTERGREN - CCP ANTIBODY IGG - MARA BY IFA WITH REFLEX This is a complicated issue. The patient has experienced a very delayed rupture of his tendon transfer. He does have some synovitis on exam although he is not painful. 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 He has upcoming yearly lab work and I recommended that we add in some inflammatory markers. In regard to the thumb extensor tendon which is highly debilitating to him, I reviewed an alternative transfer of the palmaris longus to the extensor pollicis longus which can be done outpatient and reviewed the risks, benefits, alternatives and limitations of this procedure. He consider these carefully and elects to proceed. I personally obtained consent. Postoperative Occupational Therapy referral was placed. We will plan on outpatient surgery under sedation and local anesthesia at his convenience. He may remain on his anticoagulation. All of his questions were answered to his satisfaction. We have made the decision to move forward with a major orthopaedic surgery today, and this represents the highest form of medical decision-making complexity. The patient's diagnosis of Left hand pain (primary encounter diagnosis) Pain of left thumb Rupture of extensor tendon of finger Crepitant synovitis of wrist, left represents an acute pathology/diagnosis/injury that represents a current or possible direct threat to bodily function. Pancho Pino MD Patient educated on expected postoperative course and recovery. Patient instructed to call the office with questions or concerns. documented in this encounter [facility] 08-26-2024 Note HNO ID: [id number] Author: PANCHO PINO MD Service: ? Author Type: Physician Type: Progress Notes Filed: 08/26/2024 09:29 Note Text: Patient presents with: Left Thumb - Established Patient, Pain HISTORY OF PRESENT ILLNESS Ru Workman presents to the office for new issue: left thumb pain. Consultation requested by Ryan Edwards APRN.CNP for an opinion regarding left thumb pain. 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 He underwent an EIP to EPL transfer in [place] which was successful.. He now notices that he Is unable to extend his thumb over the last week. He believes that one of his tendons ruptured. The patient has been taking some herbal medications which he feels has been beneficial for his pain. Denies any pain at this time. Location: Left thumb Duration of symptoms: 1 week Treatments tried include See above Symptoms have Worsened REVIEW OF SYSTEMS Cardiovascular ROS:No history of chest pain, palpitation, orthopnea, cyanosis, pedal edema Neurologic ROS: Numbness and Tingling: No PAST MEDICAL HISTORY Past medical, surgical, family, and social histories have been reviewed and updated with the patient today and are located elsewhere in the medical record. Diabetes:No ALLERGIES ALLERGIES No Known Allergies PHYSICAL EXAMINATION There were no vitals taken for this visit. There is no height or weight on file to calculate BMI. General Appearance Well appearing, alert, in no acute distress, well-hydrated, well nourished. Alert and oriented times: 3 Normal affect times: 3 Appears stated age and well nourished Gait and station:normal Left Upper Extremity Exam: Inspection demonstrates a droop posture at the left thumb Well-healed surgical incisions consistent with prior tendon transfer There is some nonspecific synovitis noted along the dorsal extensors Tenderness to palpation: Nontender about the wrist ROM: No active thumb IP extension Full composite fist, all digits tip to palm Palmaris longus tendon is present Sensation intact median, radial, ulnar nerve distribution 2+ radial pulse REVIEW OF STUDIES X-rays 08/26/24 3 views of the left hand demonstrate degenerative arthritis throughout the radiocarpal, intercarpal articulations. A headless screw is present in the interval between the lunate and triquetrum. A small dorsal osteophyte is noted at the midcarpal joint. ASSESSMENT/PLAN: 1. Left hand pain - ICD9: 729.5, ICD10: M79.642 (primary diagnosis) - XR HAND GENERAL 3V PA/LAT/OBL LEFT - CONSULT TO BOAT DESIGNER 2. Pain of left thumb - ICD9: 729.5, ICD10: M79.645 3. Rupture of extensor tendon of finger - ICD9: 842.10, ICD10: S56.419A - CONSULT TO BOAT DESIGNER 4. Crepitant synovitis of wrist, left - ICD9: 727.00, ICD10: M70.032 - C-REACTIVE PROTEIN - RHEUMATOID FACTOR - SEDIMENTATION RATE, WESTERGREN - CCP ANTIBODY IGG - MARA BY IFA WITH REFLEX This is a complicated issue. The patient has experienced a very delayed rupture of his tendon transfer. He does have some synovitis on exam although he is not painful. 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 He has upcoming yearly lab work and I recommended that we add in some inflammatory markers. In regard to the thumb extensor tendon which is highly debilitating to him, I reviewed an alternative transfer of the palmaris longus to the extensor pollicis longus which can be done outpatient and reviewed the risks, benefits, alternatives and limitations of this procedure. He consider these carefully and elects to proceed. I personally obtained consent. Postoperative Occupational Therapy referral was placed. We will plan on outpatient surgery under sedation and local anesthesia at his convenience. He may remain on his anticoagulation. All of his questions were answered to his satisfaction. We have made the decision to move forward with a major orthopaedic surgery today, and this represents the highest form of medical decision-making complexity. The patient's diagnosis of Left hand pain (primary encounter diagnosis) Pain of left thumb Rupture of extensor tendon of finger Crepitant synovitis of wrist, left represents an acute pathology/diagnosis/injury that represents a current or possible direct threat to bodily function. Pancho Pino MD Patient educated on expected postoperative course and recovery. Patient instructed to call the office with questions or concerns. [facility] 08-25-2024 Telephone encounter Note Pharmacy requesting refills as follows: Last Office Visit:09/14/2023 Next Office Visit:10/04/2024 Requested Prescriptions Pending Prescriptions Disp Refills warfarin (COUMADIN) 4 mg tablet [Pharmacy Med Name: WARFARIN SODIUM 4 MG TABLET] 180 tablet 1 Sig: TAKE 2 TABLETS BY MOUTH EVERY DAY INSTRUCTED Please review and advise. Cristine Boykin LPN [facility] 08-25-2024 Miscellaneous Notes Pharmacy requesting refills as follows: Last Office Visit:09/14/2023 Next Office Visit:10/04/2024 Requested Prescriptions Pending Prescriptions Disp Refills warfarin (COUMADIN) 4 mg tablet [Pharmacy Med Name: WARFARIN SODIUM 4 MG TABLET] 180 tablet 1 Sig: TAKE 2 TABLETS BY MOUTH EVERY DAY INSTRUCTED Please review and advise. Cristine Boykin LPN documented in this encounter [facility] 08-23-2024 Note Addended by: RYAN EDWARDS on: 08/23/2024 04:10 PM Modules accepted: Orders [facility] 08-23-2024 Telephone encounter Note Orders placed [facility] 08-23-2024 Miscellaneous Notes Addended by: RYAN EDWARDS on: 08/23/2024 04:10 PM Modules accepted: Orders Orders placed Patient is scheduled for October 04, 2024 for Medicare Wellness. Patient would like his labwork placed before that appointment so he can have it done and be able to discuss it with Ryan at that appointment. Stefanie Castano Pt left message that he would like to schedule appointment for wellness appointment. Cristine Boykin LPN documented in this encounter [facility] 08-23-2024 Telephone encounter Note Patient is scheduled for October 04, 2024 for Medicare Wellness. Patient would like his labwork placed before that appointment so he can have it done and be able to discuss it with Ryan at that appointment. Stefanie Castano [facility] 08-23-2024 Telephone encounter Note Pt left message that he would like to schedule appointment for wellness appointment. Cristine Boykin LPN [facility] 08-18-2024 Telephone encounter Note Pt called office stating that [facility] filled the wrong Warfarin again. Pt states that he needs to have the Warfarin 2 mg filled and the pharmacy keeps filling the 5 mg tablets. Pt requesting refills as follows: Last Office Visit:09/14/2023 Next Office Visit:No future Requested Prescriptions Pending Prescriptions Disp Refills warfarin (COUMADIN) 4 mg tablet 180 tablet 1 Sig: TAKE 2 TABLETS BY MOUTH ONCE DAILY INSTRUCTED Please review and advise. Cristine Boykin LPN [facility] 08-18-2024 Miscellaneous Notes Pt called office stating that [facility] filled the wrong War[facility]in again. Pt states that he needs to have the Warfarin 2 mg filled and the pharmacy keeps filling the 5 mg tablets. Pt requesting refills as follows: Last Office Visit:09/14/2023 Next Office Visit:No future Requested Prescriptions Pending Prescriptions Disp Refills warfarin (COUMADIN) 4 mg tablet 180 tablet 1 Sig: TAKE 2 TABLETS BY MOUTH ONCE DAILY INSTRUCTED Please review and advise. Cristine Boykin LPN documented in this encounter [facility] 08-15-2024 Note HNO ID: [id number] Author: CRISTINE BOYKIN LPN Service: ? Author Type: LICENSED NURSE Type: Progress Notes Filed: 08/15/2024 09:00 Note Text: INR (POCT) Date Value Ref Range Status 08/15/2024 1.8 (H) 0.8 - 1.2 Final 08/15/24 0854 08/15/24854 BP: 140/80 138/78 Pt here for INR check as ordered by Ryan Edwards CNP. Pt's INR today is 1.8. Pt currently taking warfarin 6 mg tues, thurs and 8 mg on all other days. Last INR 08/01/2024 was 2.5. Per Ryan Edwards CNP, pt to take warfarin 6 mg Thurs and 8 mg all other days. Recheck in 2 weeks. Pt aware and verbalized an understanding. Cristine Boykin LPN [facility] 08-15-2024 History of Presen t illness Narrative INR (POCT) Date Value Ref Range Status 08/15/2024 1.8 (H) 0.8 - 1.2 Final 08/15/24 0854 08/15/24854 BP: 140/80 138/78 Pt here for INR check as ordered by Ryan Edwards CNP. Pt's INR today is 1.8. Pt currently taking warfarin 6 mg tues, thurs and 8 mg on all other days. Last INR 08/01/2024 was 2.5. Per Ryan Edwards CNP, pt to take warfarin 6 mg Thurs and 8 mg all other days. Recheck in 2 weeks. Pt aware and verbalized an understanding. Cristine Boykin LPN documented in this encounter [facility] 08-09-2024 Telephone encounter Note ----- Message from Britta Pereira sent at 08/09/2024 2:50 PM EDT ----- Regarding: Orthopedics / Hand: RFV Not Found / RFV Not Found In [employer] Orthopedics / Hand: RFV Not Found / RFV Not Found In [employer] Patient has been identified by name and Date of (Y/N): Y Patient: Ru Workman Date of : 1955 Previous Provider Seen: Alvarez (Unrelated concern) Body Part(s) Identified: left hand thumb Diagnosis/Reason For Visit: patient said his left hand thumb is not functional Reason for the call/escalation: I am unable to schedule per tool. Patient has a referral from his PCP to see if possible. If reason for call/escalation is discharge from ED/ER or Hospital, which facility was the patient seen at: na Was an appointment scheduled (Y/N): n Person calling if other than patient: n Return call to if other than patient: n Best contact number: [phone] Thank you, Britta Chisholm August 09, 2024 2:50 PM [facility] 08-09-2024 Miscellaneous Notes ----- Message from Britta Pereira sent at 08/09/2024 2:50 PM EDT ----- Regarding: Orthopedics / Hand: RFV Not Found / RFV Not Found In [employer] Orthopedics / Hand: RFV Not Found / RFV Not Found In [employer] Patient has been identified by name and Date of (Y/N): Y Patient: Ru Workman Date of : 1955 Previous Provider Seen: Alvarez (Unrelated concern) Body Part(s) Identified: left hand thumb Diagnosis/Reason For Visit: patient said his left hand thumb is not functional Reason for the call/escalation: I am unable to schedule per tool. Patient has a referral from his PCP to see if possible. If reason for call/escalation is discharge from ED/ER or Hospital, which facility was the patient seen at: na Was an appointment scheduled (Y/N): n Person calling if other than patient: n Return call to if other than patient: n Best contact number: [phone] Thank you, Britta Chisholm August 09, 2024 2:50 PM documented in this encounter [facility] 08-08-2024 Telephone encounter Note co [facility] 08-08-2024 Miscellaneous Notes co documented in this encounter [facility] 08-01-2024 Note HNO ID: [id number] Author: DANA DAVIS MA Service: ? Author Type: Associate Director Of Biostatistics Type: Progress Notes Filed: 08/01/2024 10:10 Note Text: Patient here for INR check. Last INR was 3.8 on 07/25/24, at that time Ryan Edwards CNP had patient hold his coumadin then take 6 mg Thursday, and 8 mg all other days. Patient's INR today was 2.5. Per conversation with Rayn Edwards CNP patient informed to take coumadin 6 mg Franchesca, Th, 8 mg all other days and recheck in 2 weeks. Dana Davis MA [facility] 08-01-2024 History of Presen t illness Narrative Patient here for INR check. Last INR was 3.8 on 07/25/24, at that time Ryan Edwards CNP had patient hold his coumadin then take 6 mg Thursday, and 8 mg all other days. Patient's INR today was 2.5. Per conversation with Ryan Edwards CNP patient informed to take coumadin 6 mg Franchesca, Th, 8 mg all other days and recheck in 2 weeks. Dana Davis MA documented in this encounter [facility] 07-25-2024 Note HNO ID: [id number] Author: DANA DAVIS MA Service: ? Author Type: Associate Director Of Biostatistics Type: Progress Notes Filed: 07/25/2024 08:46 Note Text: Patient here for INR check. Last INR was 2.2 on 06/27. Patient is currently taking coumadin 6 mg and 8 mg all other days, states he has missed a dose in the last month he thinks but not recently. Patient's INR was 3.8. Per conversation with Ryan Edwards CNP patient informed to hold coumadin today then take 6 mg Thursday, , 8 mg all other days and recheck in 1 week. Dana Davis MA [facility] 07-25-2024 History of Presen t illness Narrative Patient here for INR check. Last INR was 2.2 on 06/27. Patient is currently taking coumadin 6 mg and 8 mg all other days, states he has missed a dose in the last month he thinks but not recently. Patient's INR was 3.8. Per conversation with Ryan Edwards CNP patient informed to hold coumadin today then take 6 mg Thursday, , 8 mg all other days and recheck in 1 week. Dana Davis MA documented in this encounter [facility] 06-27-2024 Note HNO ID: [id number] Author: CRISTINE BOYKIN LPN Service: ? Author Type: LICENSED NURSE Type: Progress Notes Filed: 06/27/2024 11:15 Note Text: INR (POCT) Date Value Ref Range Status 06/27/2024 2.2 (H) 0.8 - 1.2 Final 06/27/24 1050 BP: 128/60 Pt here for INR check as ordered by Ryan Edwards CNP. INR 2.2 Pt currently taking 6 mg on and 8 mg all other days. Last INR 2.7 on 05/25/2024 Per Ryan Edwards CNP continue current dosage. Recheck in 1 month. Pt aware and verbalized an understanding. Cristine Boykin LPN [facility] 06-27-2024 History of Presen t illness Narrative INR (POCT) Date Value Ref Range Status 06/27/2024 2.2 (H) 0.8 - 1.2 Final 06/27/24 1050 BP: 128/60 Pt here for INR check as ordered by Ryan Edwards CNP. INR 2.2 Pt currently taking 6 mg on and 8 mg all other days. Last INR 2.7 on 05/25/2024 Per Ryan Edwards CNP continue current dosage. Recheck in 1 month. Pt aware and verbalized an understanding. Cristine Boykin LPN documented in this encounter [facility] 05-31-2024 Telephone encounter Note Pharmacy comment: REQUEST FOR 90 DAYS PRESCRIPTION. [facility] 05-31-2024 Miscellaneous Notes Pharmacy comment: REQUEST FOR 90 DAYS PRESCRIPTION. documented in this encounter [facility] 05-25-2024 Note HNO ID: [id number] Author: DANA DAVIS MA Service: ? Author Type: Associate Director Of Biostatistics Type: Progress Notes Filed: 05/25/2024 11:37 Note Text: Patient informed and scheduled for 1 month. Dana Davis MA [facility] 05-25-2024 History of Presen t illness Narrative Patient informed and scheduled for 1 month. Dana Davis MA No change follow up one month INR (POCT) Date Value Ref Range Status 05/25/2024 2.7 (H) 0.8 - 1.2 Final Pt in office for INR today. INR result 2.7. Last INR was 1.9 on 04/25/2024. Pt currently taking warfarin 6 mg on and 8 mg all other days. Please advise Cristine Boykin LPN documented in this encounter [facility] 05-25-2024 Note HNO ID: [id number] Author: RYAN EDWARDS APRN.WAFFLE MACHINE OPERATOR Service: ? Author Type: Nurse Practitioner Type: Progress Notes Filed: 05/25/2024 10:41 Note Text: No change follow up one month [facility] 05-25-2024 Note HNO ID: [id number] Author: CRISTINE BOYKIN LPN Service: ? Author Type: LICENSED NURSE Type: Progress Notes Filed: 05/25/2024 10:39 Note Text: INR (POCT) Date Value Ref Range Status 05/25/2024 2.7 (H) 0.8 - 1.2 Final Pt in office for INR today. INR result 2.7. Last INR was 1.9 on 04/25/2024. Pt currently taking warfarin 6 mg on and 8 mg all other days. Please advise Cristine Boykin LPN [facility] 05-05-2024 Telephone encounter Note Patient requesting refills as follows: Last Office Visit 09/14/23 NOV none. Last Refill 03/03/23 Viagra and 05/01/23 for Cardizem. Requested Prescriptions Pending Prescriptions Disp Refills dilTIAZem CD (CARDIZEM CD, CARTIA XT) 240 mg 24 hr capsule 30 capsule 0 Sig: Take 1 capsule by mouth once daily. sildenafil (VIAGRA) 50 mg tablet 15 tablet 2 Please review and advise. Edel Johns MA [facility] 05-05-2024 Miscellaneous Notes Patient requesting refills as follows: Last Office Visit 09/14/23 NOV none. Last Refill 03/03/23 Viagra and 05/01/23 for Cardizem. Requested Prescriptions Pending Prescriptions Disp Refills dilTIAZem CD (CARDIZEM CD, CARTIA XT) 240 mg 24 hr capsule 30 capsule 0 Sig: Take 1 capsule by mouth once daily. sildenafil (VIAGRA) 50 mg tablet 15 tablet 2 Please review and advise. Edel Johns MA documented in this encounter [facility] 04-25-2024 Nurse Note Since he missed a dose. Well continue him on current dose and recheck in 4 wks [facility] 04-25-2024 Nurse Note Since he missed a dose. Well continue him on current dose and recheck in 4 wks INR (POCT) Date Value Ref Range Status 04/25/2024 1.9 (H) 0.8 - 1.2 Final INR today 1.9 Last INR 1.7 Pt current dosage is warfarin 6 on Thurs and 8 mg all other days. Per pt he missed one dosage on 04/16/2024 Please advise Cristine Boykin LPN documented in this encounter [facility] 04-25-2024 Nurse Note INR (POCT) Date Value Ref Range Status 04/25/2024 1.9 (H) 0.8 - 1.2 Final INR today 1.9 Last INR 1.7 Pt current dosage is warfarin 6 on Thurs and 8 mg all other days. Per pt he missed one dosage on 04/16/2024 Please advise Cristine Boykin LPN [facility] 04-11-2024 Note HNO ID: [id number] Author: CRISTINE BOYKIN LPN Service: ? Author Type: LICENSED NURSE Type: Progress Notes Filed: 04/11/2024 14:00 Note Text: Left message for pt with this information. Advised pt to call office if he has any questions. Apt made for 04/25/2024 for INR. Cristine Boykin LPN [facility] 04-11-2024 Note HNO ID: [id number] Author: RYAN EDWARDS APRN.WAFFLE MACHINE OPERATOR Service: ? Author Type: Nurse Practitioner Type: Progress Notes Filed: 04/11/2024 12:24 Note Text: New dose 8 mg daily except 6 mg on . Recheck in 2 wks [facility] 04-11-2024 History of Presen t illness Narrative New dose 8 mg daily except 6 mg on . Recheck in 2 wks INR 1.7 today 04/11/2024 Last INR 2.2 on 03/14/2024 Per pt he is currently taking warfarin 8 mg mon, wed, fri and 6 mg all other days. Per pt he has been taking his warfarin. No changes in anything. 1st bp 152/80 2nd bp 138/72 Please advise. Cristine Boykin LPN documented in this encounter [facility] 04-11-2024 Note HNO ID: [id number] Author: CRISTINE BOYKIN LPN Service: ? Author Type: LICENSED NURSE Type: Progress Notes Filed: 04/11/2024 09:20 Note Text: INR 1.7 today 04/11/2024 Last INR 2.2 on 03/14/2024 Per pt he is currently taking warfarin 8 mg mon, wed, fri and 6 mg all other days. Per pt he has been taking his warfarin. No changes in anything. 1st bp 152/80 2nd bp 138/72 Please advise. Cristine Boykin LPN [facility] 04-01-2024 Telephone encounter Note Images from the original note were not included. From: Jaya Hernandez Sent: Monday, April 01, 2024 10:25 AM To: Chantale Gómez ; Emili Good ; Ileana Quiroz ; Elder Nguyen Subject: Re: Ru Workman Ok, will do. Thanks! From: Chantale Gómez Sent: Monday, April 01, 2024 10:22 AM To: Emili Good ; Ileana Quiroz ; Elder Nguyen ; Jaya Hernandez Subject: Re: Ru Workman We can see him in [place] on , can you call to see if he can come in? If any worsening or increase in floaters, flashes of light, or shadow in vision he should be seen sooner than . Thank you [facility] Work Phone: 04-01-2024 Miscellaneous Notes Images from the original note were not included. From: Jaya Hernandez < > Sent: Monday, April 01, 2024 10:25 AM To: Chantale Gómez < >; Emili Good < >; Ileana Quiroz < >; Elder Nguyen < > Subject: Re: Ru Workman Ok, will do. Thanks! From: Chantale Gómez < > Sent: Monday, April 01, 2024 10:22 AM To: Emili Good < >; Ileana Quiroz < >; Elder Nguyen < >; Jaya Hernandez < > Subject: Re: Ru Workman We can see him in [place] on , can you call to see if he can come in? If any worsening or increase in floaters, flashes of light, or shadow in vision he should be seen sooner than . Thank you Ru Workman [facility]# [id number] Patient calling, yesterday had a floater, size of a fly, zipping past in OD, it is intermittent but still there every now and then. No decrease in vision, no other symptoms. He said you told him to call if this happens Should he schedule a sooner appt w/you or what do you advise [facility] 12/01/24 Ileana Quiroz MD, PhD filed at 12/03/2023 10:35 AM Status: Signed Here for annual exam He thinks he needs a new MRX 1. 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 Posterior chamber intraocular lens (PCIOL) both eyes -s/p YAG right eye Plan: Return annually See Dr Monet for mrx documented in this encounter [facility] 04-01-2024 Telephone encounter Note Ru Workman [facility]# [id number] Patient calling, yesterday had a floater, size of a fly, zipping past in OD, it is intermittent but still there every now and then. No decrease in vision, no other symptoms. He said you told him to call if this happens Should he schedule a sooner appt w/you or what do you advise [facility] 12/01/24 Ileana Quiroz MD, PhD filed at 12/03/2023 10:35 AM Status: Signed Here for annual exam He thinks he needs a new MRX 1. 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 Posterior chamber intraocular lens (PCIOL) both eyes -s/p YAG right eye Plan: Return annually See Dr Monet for mrx [facility] 03-14-2024 Note HNO ID: [id number] Author: DANA DAVIS MA Service: ? Author Type: Associate Director Of Biostatistics Type: Progress Notes Filed: 03/14/2024 09:25 Note Text: Patient here for INR check. Last INR was 2.6 pm 02/29/24. Patient is currently taking coumadin 8 mg Thursday, Thursday, Thursday, 6 mg all other days and denies missing any doses. Patient's INR today was 2.2. Per conversation with Ryan Edwards CNP patient informed to continue current dose and recheck in 1 month. Dana Davis MA [facility] 03-14-2024 History of Presen t illness Narrative Patient here for INR check. Last INR was 2.6 pm 02/29/24. Patient is currently taking coumadin 8 mg Thursday, Thursday, Thursday, 6 mg all other days and denies missing any doses. Patient's INR today was 2.2. Per conversation with Ryan Edwards CNP patient informed to continue current dose and recheck in 1 month. Dana Davis MA documented in this encounter [facility] 03-02-2024 Telephone encounter Note pharmacy electronically requesting refills as follows: Last seen 09/14/23 . Last refill 01/27/23 . Requested Prescriptions Pending Prescriptions Disp Refills warfarin (COUMADIN) 4 mg tablet [Pharmacy Med Name: WARFARIN SODIUM 4 MG TABLET] 180 tablet 1 Sig: TAKE 2 TABLETS BY MOUTH ONCE DAILY INSTRUCTED Please review and advise. Dana Davis MA [facility] 03-02-2024 Miscellaneous Notes pharmacy electronically requesting refills as follows: Last seen 09/14/23 . Last refill 01/27/23 . Requested Prescriptions Pending Prescriptions Disp Refills warfarin (COUMADIN) 4 mg tablet [Pharmacy Med Name: WARFARIN SODIUM 4 MG TABLET] 180 tablet 1 Sig: TAKE 2 TABLETS BY MOUTH ONCE DAILY INSTRUCTED Please review and advise. Dana Davis MA documented in this encounter [facility] 03-01-2024 Miscellaneous Notes pharm requesting refills: Last office visit 09/14/2023. Last refill 07/16/2023. Requested Prescriptions Pending Prescriptions Disp Refills warfarin (COUMADIN) 5 mg tablet [Pharmacy Med Name: WARFARIN SODIUM 5 MG TABLET] 30 tablet 0 Sig: take 1 tablet by mouth every day Please review and advise. Elder Cordova MA documented in this encounter [facility] 03-01-2024 Telephone encounter Note pharm requesting refills: Last office visit 09/14/2023. Last refill 07/16/2023. Requested Prescriptions Pending Prescriptions Disp Refills warfarin (COUMADIN) 5 mg tablet [Pharmacy Med Name: WARFARIN SODIUM 5 MG TABLET] 30 tablet 0 Sig: take 1 tablet by mouth every day Please review and advise. Elder Cordova MA [facility] 02-29-2024 Note HNO ID: [id number] Author: CRISTINE BOYKIN LPN Service: ? Author Type: LICENSED NURSE Type: Progress Notes Filed: 02/29/2024 16:54 Note Text: Per Ryan Edwards CNP pt to take 8 mg mon, wed, fri and 6 mg all other days. Recheck INR in 2 weeks (03/14/2024). Left detailed message for pt with the information. Advised to call office with question and to schedule INR. [facility] 02-29-2024 Note HNO ID: [id number] Author: CRISTINE BOYKIN LPN Service: ? Author Type: LICENSED NURSE Type: Progress Notes Filed: 02/29/2024 10:35 Note Text: Pt in office for INR check. Pt INR today 02/29/2024 2.6. Last INR 3.8 on 02/22/2024. Last instructions was Hold on 02/22/2024, take warfarin 8 mg Wed, Fri and 6 mg all other days. Please advise Cristine Boykin LPN [facility] 02-29-2024 History of Presen t illness Narrative Pt in office for INR check. Pt INR today 02/29/2024 2.6. Last INR 3.8 on 02/22/2024. Last instructions was Hold on 02/22/2024, take warfarin 8 mg Wed, Fri and 6 mg all other days. Please advise Cristine Boykin LPN documented in this encounter [facility] 02-22-2024 Note HNO ID: [id number] Author: CRISTINE BOYKIN LPN Service: ? Author Type: LICENSED NURSE Type: Progress Notes Filed: 02/22/2024 09:55 Note Text: Pt's INR today 02/22/2024 was 3.8. Pt has been taking warfarin 8 mg mon, wed, thurs, sat and 6 mg Tues, Fri, Sun Pt last INR 2.2 on 01/26/2024 BP today was 128/70 Per Ryan Jerry WAFFLE MACHINE OPERATOR pt to hold warfarin today. Then take warfarin 6 mg Tues, Thurs, Sat, Sun and 8 mg on Wed, Fri. Recheck INR on 02/29/2024 Pt aware and verbalized an understanding. [facility] 02-22-2024 History of Presen t illness Narrative Pt's INR today 02/22/2024 was 3.8. Pt has been taking warfarin 8 mg mon, wed, thurs, sat and 6 mg Tues, Fri, Sun Pt last INR 2.2 on 01/26/2024 BP today was 128/70 Per Ryan Jerry WAFFLE MACHINE OPERATOR pt to hold warfarin today. Then take warfarin 6 mg Tues, Thurs, Sat, Sun and 8 mg on Wed, Fri. Recheck INR on 02/29/2024 Pt aware and verbalized an understanding. documented in this encounter [facility] 01-26-2024 Note HNO ID: [id number] Author: CRISTINE BOYKIN LPN Service: ? Author Type: LICENSED NURSE Type: Progress Notes Filed: 01/26/2024 13:26 Note Text: Left message for pt with the information in this note. Advised to contact office to recheck in 1 month. Also advised if any questions to call office. Cristine Boykin LPN [facility] 01-26-2024 History of Presen t illness Narrative Left message for pt with the information in this note. Advised to contact office to recheck in 1 month. Also advised if any questions to call office. Cristine Boykin LPN Continue current dose recheck one month Pt in office for INR check. INR 2.2 today. Pt is taking 8 mg mon, wed, th, sat and 6 mg thu, , thu. Last INR on 01/11/2024 was 1.9. Bp today 120/78 Please advise Cristine Boykin LPN documented in this encounter [facility] 01-26-2024 Note HNO ID: [id number] Author: RYAN EDWARDS APRN.WAFFLE MACHINE OPERATOR Service: ? Author Type: Nurse Practitioner Type: Progress Notes Filed: 01/26/2024 12:29 Note Text: Continue current dose recheck one month [facility] 01-26-2024 Note HNO ID: [id number] Author: CRISTINE BOYKIN LPN Service: ? Author Type: LICENSED NURSE Type: Progress Notes Filed: 01/26/2024 11:05 Note Text: Pt in office for INR check. INR 2.2 today. Pt is taking 8 mg mon, wed, th, sat and 6 mg sun, tues, fri. Last INR on 01/11/2024 was 1.9. Bp today 120/78 Please advise Cristine Boykin LPN [facility] 01-11-2024 Note HNO ID: [id number] Author: EDEL JOHNS MA Service: ? Author Type: Associate Director Of Biostatistics Type: Progress Notes Filed: 01/11/2024 15:40 Note Text: Patients is informed Edel Johns MA [facility] 01-11-2024 History of Presen t illness Narrative Patients is informed Edel Johns MA Continue current dose and recheck 2 wks. Encourage to try and not miss doses Patient is here to check their INR Last INR: 2.0 Current Dose: 6 Sun, Tues, Fri and 8 all other days When confirming his dose he siad he takes one 3x a week and the other 4 but he wasn't sure which dose he takes 3x. He also admitted to missing 2 doses since last check INR: 1.9 documented in this encounter [facility] 01-11-2024 Note HNO ID: [id number] Author: RYAN EDWARDS APRN.BARBIE Service: ? Author Type: Nurse Practitioner Type: Progress Notes Filed: 01/11/2024 12:06 Note Text: Continue current dose and recheck 2 wks. Encourage to try and not miss doses [facility] 01-11-2024 Note HNO ID: [id number] Author: EDEL JOHNS MA Service: ? Author Type: Associate Director Of Biostatistics Type: Progress Notes Filed: 01/11/2024 12:06 Note Text: Patient is here to check their INR Last INR: 2.0 Current Dose: 6 Sun, Tues, Fri and 8 all other days When confirming his dose he siad he takes one 3x a week and the other 4 but he wasn't sure which dose he takes 3x. He also admitted to missing 2 doses since last check INR: 1.9 [facility] 01-06-2024 Telephone encounter Note Images from the original note were not included. Stan Tai Jr., MD [facility] [employer] Clinical Pool Psa is 10.8 Called patient and left message that their test results are viewable on [employer], if they have any questions to call the office. Betty Hightower MA [facility] 01-06-2024 Miscellaneous Notes Images from the original note were not included. Stan Tai Jr., MD P [facility] [employer] Clinical Pool Psa is 10.8 Called patient and left message that their test results are viewable on [employer], if they have any questions to call the office. Betty Hightower MA documented in this encounter [facility] 01-05-2024 Note HNO ID: [id number] Author: STAN TAI JR, MD Service: ? Author Type: Physician Type: Progress Notes Filed: 01/05/2024 09:30 Note Text: ESTABLISHED PATIENT OFFICE VISIT HPI Ru Workman is a 68 year old male who presents recently moved from [place]. Ho elevated psa. Bx in 2013 neg [...] uti. Discussed finasteride. Interested. No recent psa. 01/05/24 - doing well since last seen. Currently on no prostate meds. Luts ok. Discussed next steps including cysto/trus. Briefly discussed procedures. Will think about it. Viagra not working that well anymore for ED. Interested in cialis trial. Psa one year ago was 8.8. LAB: Creatinine Date Value Ref Range Status 04/30/2023 1.12 0.73 - 1.22 mg/dL Final PSA (ng/mL) Date Value 12/30/2022 8.81 Glucose, Urine (no units) Date Value 04/24/2023 Negative Bilirubin, Urine (no units) Date Value 04/24/2023 Negative Ketones, Urine (no units) Date Value 04/24/2023 Negative Specific [place], Ur (no units) Date Value 04/24/2023 1.021 Hemoglobin/Blood,Ur (no units) Date Value 04/24/2023 1+ pH, Urine (no units) Date Value 04/24/2023 5.5 Protein, Urine (no units) Date Value 04/24/2023 Trace Nitrites (no units) Date Value 04/24/2023 Negative WBC, Urine (no units) Date Value 04/24/2023 0-5 /HPF MEDICATIONS: warfarin (COUMADIN) 2 mg tablet Take 1 tablet by mouth daily as directed. sildenafil (VIAGRA) 50 mg tablet TAKE 1 TABLET BY MOUTH NEEDED 30 - 60 MINUTES BEFORE SEXUAL INTERCOURSE warfarin (COUMADIN) 4 mg tablet TAKE 2 TABLETS 1 TIME DAILY INSTRUCTED VIT B COMPLEX 100 COMBO NO.2 ORAL Take by mouth. vitamin D3-vit K1-vit MK4-MK7 50-500-1,500 mcg cap Take by mouth. Tadalafil (CIALIS) 20 mg tablet Take 1 tablet by mouth once daily as needed. Take 1-2 hours before sexual activity. warfarin (COUMADIN) 5 mg tablet Take 1 tablet by mouth once daily. ondansetron (ZOFRAN) 8 mg tablet Take 1 tablet by mouth every 8 hours as needed for nausea/vomiting. (Patient not taking: Reported on 10/30/2023) dilTIAZem CD (CARDIZEM CD, CARTIA XT) 240 mg 24 hr capsule Take 1 capsule by mouth once daily. lactobacillus rhamnosus (CULTURELLE) 10 billion cell capsule Take 2 capsules by mouth two times a day for 14 days. loperamide (IMODIUM) 2 mg cap(s) Take 1 capsule by mouth three times a day as needed for diarrhea for up to 7 days. (Patient not taking: Reported on 10/30/2023) metoprolol succinate ER (TOPROL XL) 50 mg 24 hr tablet Take 1 tablet by mouth two times a day. (Patient not taking: Reported on 10/30/2023) omega 9-xst-fsp-fish oil (FISH OIL) 100-160-1,000 mg cap Take by mouth. (Patient not taking: Reported on 10/30/2023) REVIEW OF SYSTEMS Review of Systems Constitutional: Negative. Respiratory: Negative. Cardiovascular: Negative. Gastrointestinal: Negative. Genitourinary: Negative. Skin: Negative. Neurological: Negative. Psychiatric/Behavioral: Negative. HISTORIES PAST MEDICAL HISTORY No date: A-fib (HCC) No date: BPH with obstruction/lower urinary tract symptoms No date: SHANNON (obstructive sleep apnea) No date: Personal history of malignant melanoma of skin No date: Rupture of right Achilles tendon No date: Septic bursitis of elbow FAMILY HISTORY Problem Relation Age of Onset Diabetes Father Heart disease Father Accidental Mother fire Hypertension Sister No Ocular Disease Other SOCIAL HISTORY Social History Tobacco Use Smoking status: Never Passive exposure: Never Smokeless tobacco: Never Vaping Use Vaping status: Never Used Substance Use Topics Alcohol use: Yes Comment: couple times a week Drug use: Never PHYSICAL EXAMINATION General appearance: Well appearing, alert, in no acute distress, and well-hydrated, well nourished Skin: Skin color, texture, turgor normal, no suspicious rashes or lesions Respiratory:+ effort Cardiovascular: Not examined GI: Normal abdominal exam, Abdomen soft, non-tender. No masses, organomegaly Musculoskeletal: Negative Neuro: Negative Genitourinary: not examined Impression: (N40.1, N13.8) BPH with obstruction/lower urinary tract symptoms (primary encounter diagnosis) (R97.20) Elevated prostate specific antigen (PSA) (N52.9) Erectile dysfunction of organic origin Plan: Will call if would like to proceed with cysto/trus Psa now Trial chanda Set for one year Stan Tai Jr, MD 01/05/2024 [facility] 01-05-2024 History of Presen t illness Narrative ESTABLISHED PATIENT OFFICE VISIT HPI Ru Workman is a 68 year old male who presents recently moved from [place]. Ho elevated psa. Bx in 2013 neg [...] uti. Discussed finasteride. Interested. No recent psa. 01/05/24 - doing well since last seen. Currently on no prostate meds. Luts ok. Discussed next steps including cysto/trus. Briefly discussed procedures. Will think about it. Viagra not working that well anymore for ED. Interested in cialis trial. Psa one year ago was 8.8. LAB: Creatinine Date Value Ref Range Status 04/30/2023 1.12 0.73 - 1.22 mg/dL Final PSA (ng/mL) Date Value 12/30/2022 8.81 Glucose, Urine (no units) Date Value 04/24/2023 Negative Bilirubin, Urine (no units) Date Value 04/24/2023 Negative Ketones, Urine (no units) Date Value 04/24/2023 Negative Specific [place], Ur (no units) Date Value 04/24/2023 1.021 Hemoglobin/Blood,Ur (no units) Date Value 04/24/2023 1+ pH, Urine (no units) Date Value 04/24/2023 5.5 Protein, Urine (no units) Date Value 04/24/2023 Trace Nitrites (no units) Date Value 04/24/2023 Negative WBC, Urine (no units) Date Value 04/24/2023 0-5 /HPF MEDICATIONS: warfarin (COUMADIN) 2 mg tablet Take 1 tablet by mouth daily as directed. sildenafil (VIAGRA) 50 mg tablet TAKE 1 TABLET BY MOUTH NEEDED 30 - 60 MINUTES BEFORE SEXUAL INTERCOURSE warfarin (COUMADIN) 4 mg tablet TAKE 2 TABLETS 1 TIME DAILY INSTRUCTED VIT B COMPLEX 100 COMBO NO.2 ORAL Take by mouth. vitamin D3-vit K1-vit MK4-MK7 50-500-1,500 mcg cap Take by mouth. Tadalafil (CIALIS) 20 mg tablet Take 1 tablet by mouth once daily as needed. Take 1-2 hours before sexual activity. warfarin (COUMADIN) 5 mg tablet Take 1 tablet by mouth once daily. ondansetron (ZOFRAN) 8 mg tablet Take 1 tablet by mouth every 8 hours as needed for nausea/vomiting. (Patient not taking: Reported on 10/30/2023) dilTIAZem CD (CARDIZEM CD, CARTIA XT) 240 mg 24 hr capsule Take 1 capsule by mouth once daily. lactobacillus rhamnosus (CULTURELLE) 10 billion cell capsule Take 2 capsules by mouth two times a day for 14 days. loperamide (IMODIUM) 2 mg cap(s) Take 1 capsule by mouth three times a day as needed for diarrhea for up to 7 days. (Patient not taking: Reported on 10/30/2023) metoprolol succinate ER (TOPROL XL) 50 mg 24 hr tablet Take 1 tablet by mouth two times a day. (Patient not taking: Reported on 10/30/2023) omega 7-mau-ooq-fish oil (FISH OIL) 100-160-1,000 mg cap Take by mouth. (Patient not taking: Reported on 10/30/2023) REVIEW OF SYSTEMS Review of Systems Constitutional: Negative. Respiratory: Negative. Cardiovascular: Negative. Gastrointestinal: Negative. Genitourinary: Negative. Skin: Negative. Neurological: Negative. Psychiatric/Behavioral: Negative. HISTORIES PAST MEDICAL HISTORY No date: A-fib (HCC) No date: BPH with obstruction/lower urinary tract symptoms No date: SHANNON (obstructive sleep apnea) No date: Personal history of malignant melanoma of skin No date: Rupture of right Achilles tendon No date: Septic bursitis of elbow FAMILY HISTORY Problem Relation Age of Onset Diabetes Father Heart disease Father Accidental Mother fire Hypertension Sister No Ocular Disease Other SOCIAL HISTORY Social History Tobacco Use Smoking status: Never Passive exposure: Never Smokeless tobacco: Never Vaping Use Vaping status: Never Used Substance Use Topics Alcohol use: Yes Comment: couple times a week Drug use: Never PHYSICAL EXAMINATION General appearance: Well appearing, alert, in no acute distress, and well-hydrated, well nourished Skin: Skin color, texture, turgor normal, no suspicious rashes or lesions Respiratory:+ effort Cardiovascular: Not examined GI: Normal abdominal exam, Abdomen soft, non-tender. No masses, organomegaly Musculoskeletal: Negative Neuro: Negative Genitourinary: not examined Impression: (N40.1, N13.8) BPH with obstruction/lower urinary tract symptoms (primary encounter diagnosis) (R97.20) Elevated prostate specific antigen (PSA) (N52.9) Erectile dysfunction of organic origin Plan: Will call if would like to proceed with cysto/trus Psa now Trial cialis Set for one year Stan Tai Jr, MD 01/05/2024 documented in this encounter [facility] 12-14-2023 Instructions Marcin Monet OD - 12/14/2023 10:51 AM EDT ASSESSMENT/PLAN: 1. Myopia, bilateral - ICD9: 367.1, ICD10: H52.13 (primary diagnosis) 2. Regular astigmatism of left eye - ICD9: 367.21, ICD10: H52.222 Suggested updating his glasses as desired. 3. Pseudophakia - ICD9: V43.1, ICD10: Z96.1 Posterior chamber intraocular lenses are well positioned and clear. Return as directed documented in this encounter [facility] 12-14-2023 Note HNO ID: [id number] Author: MARCIN MONET OD Service: ? Author Type: DIGITAL MARKETING PROGRAM MANAGER Type: Progress Notes Filed: 12/14/2023 10:52 Note Text: ASSESSMENT/PLAN: 1. Myopia, bilateral - ICD9: 367.1, ICD10: H52.13 (primary diagnosis) 2. Regular astigmatism of left eye - ICD9: 367.21, ICD10: H52.222 Suggested updating his glasses as desired. 3. Pseudophakia - ICD9: V43.1, ICD10: Z96.1 Posterior chamber intraocular lenses are well positioned and clear. Return as directed Marcin Monet OD I have confirmed and edited as necessary the relevant ophthalmic history, ROS, and the neuro exam findings as obtained by others. [facility] 12-14-2023 History of Presen t illness Narrative ASSESSMENT/PLAN: 1. Myopia, bilateral - ICD9: 367.1, ICD10: H52.13 (primary diagnosis) 2. Regular astigmatism of left eye - ICD9: 367.21, ICD10: H52.222 Suggested updating his glasses as desired. 3. Pseudophakia - ICD9: V43.1, ICD10: Z96.1 Posterior chamber intraocular lenses are well positioned and clear. Return as directed Marcin Monet, OD I have confirmed and edited as necessary the relevant ophthalmic history, ROS, and the neuro exam findings as obtained by others. documented in this encounter [facility] 12-09-2023 Note HNO ID: [id number] Author: LIBBY BARKLEY MA Service: ? Author Type: Associate Director Of Biostatistics Type: Progress Notes Filed: 12/09/2023 08:43 Note Text: Pt here for his INR pts Previous INR 1.9 Pts current dose 6 mg Sun,Tues,Fri 8 mg the rest of the week Pts INR today 2.0 Instructed pt to continue current dose and recheck in 1 month Libby Barkley MA [facility] 12-09-2023 History of Presen t illness Narrative Pt here for his INR pts Previous INR 1.9 Pts current dose 6 mg Sun,Tues,Fri 8 mg the rest of the week Pts INR today 2.0 Instructed pt to continue current dose and recheck in 1 month Libby Barkley MA documented in this encounter [facility] 12-03-2023 Note HNO ID: [id number] Author: ILEANA QUIROZ MD, PhD Service: ? Author Type: Physician Type: Progress Notes Filed: 12/03/2023 10:35 Note Text: Here for annual exam He thinks he needs a new MRX 1. 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 Posterior chamber intraocular lens (PCIOL) both eyes -s/p YAG right eye Plan: Return annually See Dr Monet for mrx I have confirmed and edited as necessary [...] with all of its relevant components. Ileana Quiroz MD [facility] 12-03-2023 History of Presen t illness Narrative Here for annual exam He thinks he needs a new MRX 1. 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 Posterior chamber intraocular lens (PCIOL) both eyes -s/p YAG right eye Plan: Return annually See Dr Monet for mrx I have confirmed and edited as necessary [...] with all of its relevant components. Ileana Quiroz MD documented in this encounter [facility] 11-18-2023 Note HNO ID: [id number] Author: LIBBY BARKLEY MA Service: ? Author Type: Associate Director Of Biostatistics Type: Progress Notes Filed: 11/18/2023 10:47 Note Text: Pt here for his INR pts Previous INR 2.0 Pts current dose 8 mg Mon,Thur,Sat 6 mg the rest of the week Pts INR today 1.9 Per CN pt to take 6 mg Sun,Tues,Fri 8 mg the rest of the week Libby Barkley MA [facility] 11-18-2023 History of Presen t illness Narrative Pt here for his INR pts Previous INR 2.0 Pts current dose 8 mg Mon,Th,Sat 6 mg the rest of the week Pts INR today 1.9 Per CN pt to take 6 mg Thu,,Thu 8 mg the rest of the week Libby Barkley MA documented in this encounter [facility] 11-05-2023 History of Presen t illness Narrative Pt here for his INR pts Previous INR 1.8 Pts current dose 8 mg Mon,Thus,Sat 6 mg the rest of the week Pts INR today 2.0 Instructed pt to continue current dose recheck in 2 weeks Libby Barkley MA documented in this encounter [facility] 10-30-2023 History of Presen t illness Narrative Patient presents with: Right Wrist - Established Patient HISTORY OF PRESENT ILLNESS Ru Workman presents to the office for follow up of right wrist arthritis. The patient reports excellent relief from the previous injection 5 weeks ago. He is happy with the results and states that he has not had any recurrence of the pain with activity. No other new complaints on today's visit. Location: Right wrist Severity: 1 on a scale of 0-10 Duration of symptoms: Years Treatments tried include injection x 1 Symptoms have Improved REVIEW OF SYSTEMS Cardiovascular ROS:No history of chest pain, palpitation, orthopnea, cyanosis, pedal edema Neurologic ROS: Numbness and Tingling: No PAST MEDICAL HISTORY Past medical, surgical, family, and social histories have been reviewed and updated with the patient today and are located elsewhere in the medical record. Diabetes:No ALLERGIES ALLERGIES No Known Allergies PHYSICAL EXAMINATION Ht 182.9 cm (6') Wt 97.1 kg (214 lb) BMI 29.02 kg/m Body mass index is 29.02 kg/m . General Appearance Well appearing, alert, in no acute distress, well-hydrated, well nourished. Alert and oriented times: 3 Normal affect times: 3 Appears stated age and well nourished Gait and station:normal Right Upper Extremity Exam: Inspection shows an overall decrease in swelling No atrophy or depigmentation at the site of prior injection Extensive ecchymosis is present from the patient's Coumadin therapy, unrelated to the prior injection Tenderness to palpation: Not significantly tender along the radiocarpal, intercarpal articulations ROM: Full composite fist Tolerates his normal arc of wrist motion without pain Sensation intact median, radial, ulnar nerve distribution Rashid radial pulse REVIEW OF STUDIES X-rays 09/24/23 3 views of the right wrist: Abnormal widening of the intercarpal joint between the navicular and lunate bone. On the lateral view, suggestion of malalignment between the radius and lunate bone without dislocation. No fractures, bone destruction or dislocations are seen. Arterial calcifications. Degenerative changes first MCP joint ASSESSMENT AND PLAN ASSESSMENT/PLAN: 1. Primary osteoarthritis of right wrist - ICD9: 715.13, ICD10: M19.031 (primary diagnosis) 2. Ganglion cyst of wrist, right - ICD9: 727.41, ICD10: M67.431 The patient has achieved an excellent response to the prior injection. We reviewed his imaging and discussed options moving forward if he again become symptomatic including repeating the injection versus surgery. He has a good understanding of his options and would like to follow-up with me on an as-needed basis. I am happy to see him back at any time. All of his questions were answered to his satisfaction. Pancho Pino MD Patient educated on treatment options for wrist arthritis. Patient instructed to call the office with questions or concerns. documented in this encounter [facility] 10-22-2023 History of Presen t illness Narrative Called pt let him know the instructions Libby Barkley MA Increase an additional 8 mg on Thursday. New dose 8 mg , , and Thursday 6 mg rest of weeks Pt here for his INR pts Previous INR 2.3 Pts current dose 8 mg Mon,Thurs 6 mg the rest of the week Pts INR today 1.8 Please advise of further instructions Libby Barkley MA documented in this encounter [facility] 10-08-2023 History of Presen t illness Narrative Pt here for his INR pts Previous INR 2.8 Pts current dose 8 mg Mon Wed Fri 6 mg the rest of the week Pts INR today 2.3 Per Cn pt to take 8 mg Mon thurs 6 mg the rest of the week recheck in 2 weeks Libby Barkley MA documented in this encounter [facility] 09-27-2023 History of Presen t illness Narrative Was called by LARRY Laguerre and orders given Pt here for his INR pts Previous INR 1.8 Pts current dose 6 mg SUn,Tues,Thurs,Sat 5 mg the rest of the week Pts INR today 2.8 Pt to continue current dose recheck in 2 weeks Libby Barkley MA documented in this encounter [facility] 09-25-2023 History of Presen t illness Narrative Associated Order(s): Medium Joint Arthro/Inj: R radiocarpal Post-Procedure Diagnose(s): Primary osteoarthritis of right wrist Patient presents with: Right Wrist - New HISTORY OF PRESENT ILLNESS Ru Workman is a 68 year old male right hand dominant who presents for evaluation of right wrist pain and an associated ganglion. He has noted symptoms for several months. No recent trauma. He does note issues with his left wrist dating back many years when he lived out of state in [place]. He describes surgical management of this which sounds as though he had a partial wrist fusion. In regard to the right wrist he has noticed a pronounced ganglion along the ulnar side of the wrist as well as worsening pain with any weightbearing or motion. Location: Right wrist Severity: 5 on a scale of 0-10 Duration of symptoms: Several months Date of injury unknown Symptoms have Worsened Previous treatment: Observation, activity modification Context worse with Activity/Motion Occupation: Retired Smoking status: Tobacco Use: Never REVIEW OF SYSTEMS Cardiovascular ROS:No history of chest pain, palpitation, orthopnea, cyanosis, pedal edema Neurologic ROS: Numbness and Tingling:No PAST MEDICAL HISTORY Past medical, surgical, family, and social histories have been reviewed and updated with the patient today and are located elsewhere in the medical record. Diabetes:No ALLERGIES ALLERGIES No Known Allergies PHYSICAL EXAMINATION Ht 182.9 cm (6') Wt 96.2 kg (212 lb) BMI 28.75 kg/m Body mass index is 28.75 kg/m . General Appearance Well appearing, alert, in no acute distress, well-hydrated, well nourished. Alert and oriented times: 3 Normal affect times: 3 Appears stated age and well nourished Gait and station:normal Right Upper Extremity Exam: Inspection of the right wrist shows some deformity, joint effusion and an ulnar-sided ganglion No wounds or lacerations Skin: WNL Tenderness to palpation: Tender along the radiocarpal articulation, less tender along the ulnar wrist ROM: Wrist flexion and extension approximately 45 degrees respectively. Full composite fist, all digits tip to palm Instability: none Sensation:Normal sensation Atrophy: None Brisk capillary refill REVIEW OF STUDIES X-rays 09/24/23 3 views of the right wrist: Abnormal widening of the intercarpal joint between the navicular and lunate bone. On the lateral view, suggestion of malalignment between the radius and lunate bone without dislocation. No fractures, bone destruction or dislocations are seen. Arterial calcifications. Degenerative changes first MCP joint ASSESSMENT AND PLAN ASSESSMENT/PLAN: 1. Ganglion cyst of wrist, right - ICD9: 727.41, ICD10: M67.431 (primary diagnosis) - XR WRIST GENERAL 3V PA/LAT/OBL RIGHT 2. Primary osteoarthritis of right wrist - ICD9: 715.13, ICD10: M19.031 I reviewed the imaging and discussed the diagnosis with the patient. He has end-stage arthritis at the wrist. I counseled him that this process has likely been ongoing for many years but has recently become symptomatic. I counseled him that the ganglion cyst itself is not the cause of the pain but rather a secondary to the advanced degenerative change. We reviewed treatment options for this including surgery, but my recommendation is to begin with a more conservative approach and I suggested an injection. Risks and benefits of the injection were reviewed. He consider these and wished to proceed. Please see procedure note. Will plan on following up in 1 month to assess his response. All of his questions were answered to his satisfaction. Medium Joint Arthro/Inj: R radiocarpal Informed Consent Consent Obtained: Verbal Murray Protocol A moment to CARE was completed. SIGN IN Personnel directly involved with the procedure wore the appropriate PPE. Patient/Surrogate Stated/Verified: Patient name, Date of , Relevant allergies and Intended procedure TIME OUT Intended patient and procedure match the source document(s). Relevant labs, photos, and/or imaging studies have been reviewed. Correct side/site marked and visible. Medications required for procedure verified. 09/25/2023 9:21 AM The procedure site was prepped in the usual sterile fashion. Medications: 12 mg betamethasone acetate-betamethasone sodium phosphate 6 mg/mL Anesthetics: 1 mL lidocaine (PF) 10 mg/mL (1 %) Outcome: tolerated well, no immediate complications Post-injection instructions were reviewed with the patient and the patient voiced understanding of these instructions. SIGN OUT All instruments, equipment, possible retained foreign bodies accounted for. Post-procedure follow-up management communicated and Plan of Care Visit completed when applicable Pancho Pino MD Patient educated on treatment options for end-stage wrist arthritis. Patient instructed to call the office with questions or concerns. documented in this encounter [facility] 09-24-2023 History of Presen t illness Narrative Radiology Service Progress Note PATIENT NAME: Ru Workman DATE OF SERVICE: September 24, 2023 TIME: 2:06 PM PATIENT IDENTITY VERIFICATION COMPLETED USING TWO (2) IDENTIFIERS: Name and Date of confirmed by patient verbally. FALL SCREENING: Has the patient had 2 falls in the last year or 1 fall with injury or currently using an Ambulatory Assistive Device (Walker, Cane, Wheelchair, Crutches, etc.)? No PATIENT GENDER DATA: Male PATIENT RELEVANT IMPLANT DATA REVIEWED: Not Applicable PATIENT PRESENTS WITH AN IMPLANTABLE OR ATTACHED CONSTRUCTION CONSULTANT: No RADIOLOGY DEPARTMENT: General X-ray: Exam(s) Completed: Upper Extremity X-Ray(s): Wrist, right PERIPHERAL IV DATA: Not applicable SIGNED BY: RT Rosie(R) September 24, 2023 2:06 PM documented in this encounter [facility] 09-18-2023 History of Presen t illness Narrative Images from the original note were not included. Episode Visit Count: 4 Therapist That Will Accept/Oversee The Plan Of Care: Mike Peacock Start of Care Date: 08/17/23 Onset Date: 03/28/23 Plan of Care Certification Date: 08/17/23 Next Certification Due Date: 10/16/23 [facility] PHYSICAL THERAPY DISCONTINUANCE OF CARE PLAN OF CARE UPDATE: Assessment: Ru Workman is discontinued from Physical Therapy services due to goal achievement.. Patient was seen for 4 visits from Start of Care Date: 08/17/23 to 09/18/2023 and treatment included: Therapeutic exercise, Manual therapy, and Therapeutic activities. Goals for Episode of Care: created on 08/17/23 through 10/16/23 Pt will have 5/5 R hip strength MET Increase ROM of R ankle for improved gait MET Increased strength of ankle to 4+/5 for walking MET Normal gait.MET Reciprocal stair negotiation.MET Ability to single leg stand for 15 seconds RLE. NOT MET (4 seconds on R, 3 L) Patient Goals: gain strength and function SUBJECTIVE: Pt continues to do well. He saw the referring ortho and he released him to anything as long as it isn't running, jumping.. He is walking a mile a day and working out on his own at home. Pain: Pain Pain Level: 0 PROMIS Scales 08/25/2023 04/01/2023 Higher is Better Phys Func - Score 49 (within normal limits) 28 (severe dysfunction) Phys Func - Percentile 46 1 Self-Eff Symptom - Score 48 (Average) Self-Eff Symptom - Percentile 42 T-scores: mean of general population = 50. 5 points is clinically meaningfully difference Percentiles provide an indication of how the patient's score ranks in relation to the general population. Higher percentile rankings indicate better function/quality of life. 50th percentile is the average of the general population and indicates half of respondents had a worse score. OBJECTIVE MEASURES WITH LEVEL OF FUNCTION: LE AROM L Ankle Dorsiflexion: 15 Degrees L Ankle Plantar Flexion: 50 Degrees L Ankle Inversion: 55 L Ankle Eversion: 20 LE Strength R Hip Extension: 5/5 R Hip Flexion (L2): 5/5 R Hip ABduction: 5/5 R Ankle Dorsiflexion (L4): 5/5 R Ankle Plantar Flexion: 4+/5 R Ankle Inversion: 5/5 R Ankle Eversion: 5/5 R Great Toes Extension (L5, S1): 5/5 TREATMENT: Therapeutic Exercise: 1: re-checked ankle motion Skilled Intervention: Patient was educated in proper exercise technique and purpose for exercises. Skilled judgment was used in selection of appropriate interventions. Therapeutic Activity: 1: Pt gait was off due to a short RLE. PLaced a lift in RLE and pt gait improved as well as pt said it felt better with lift in place. Pt walked clinic length x 10 total with lift in place then reassed gait adn it was improved with less of a noticeable limp Skilled Intervention: see above Billing Therapeutic Exercise Treatment Minutes: 14 Therapeutic Activity Treatment Minutes: 10 Total Session Time (minutes): 25 Session Start Time : 1120 Session Stop Time : 1145 Mike Peacock PT documented in this encounter [facility] 09-17-2023 History of Presen t illness Narrative CC: follow upon Achilles tendon injury (DOI: 03/28/23) HPI: This 68 year old male with PMH indicated below presents for follow up of achilles tendon rupture. He is 6 months out from injury. He denies any current pain to the achilles area. He has completed therapy and does not admit to any weakness to the area. Overall he is happy with his progress at this point in his treatment. PAST MEDICAL HISTORY Diagnosis Date A-fib (HCC) BPH with obstruction/lower urinary tract symptoms SHANNON (obstructive sleep apnea) Personal history of malignant melanoma of skin Rupture of right Achilles tendon Septic bursitis of elbow Current Outpatient Medications Medication Sig Dispense Refill warfarin (COUMADIN) 5 mg tablet Take 1 tablet by mouth once daily. 30 tablet 0 dilTIAZem CD (CARDIZEM CD, CARTIA XT) 240 mg 24 hr capsule Take 1 capsule by mouth once daily. 30 capsule 0 lactobacillus rhamnosus (CULTURELLE) 10 billion cell capsule Take 2 capsules by mouth two times a day for 14 days. 56 capsule 0 loperamide (IMODIUM) 2 mg cap(s) Take 1 capsule by mouth three times a day as needed for diarrhea for up to 7 days. 21 capsule 0 warfarin (COUMADIN) 2 mg tablet Take 1 tablet by mouth daily as directed. 90 tablet 3 sildenafil (VIAGRA) 50 mg tablet TAKE 1 TABLET BY MOUTH NEEDED 30 - 60 MINUTES BEFORE SEXUAL INTERCOURSE 15 tablet 2 warfarin (COUMADIN) 4 mg tablet TAKE 2 TABLETS 1 TIME DAILY INSTRUCTED 180 tablet 1 VIT B COMPLEX 100 COMBO NO.2 ORAL Take by mouth. vitamin D3-vit K1-vit MK4-MK7 50-500-1,500 mcg cap Take by mouth. ondansetron (ZOFRAN) 8 mg tablet Take 1 tablet by mouth every 8 hours as needed for nausea/vomiting. (Patient not taking: Reported on 09/17/2023) 12 tablet 1 metoprolol succinate ER (TOPROL XL) 50 mg 24 hr tablet Take 1 tablet by mouth two times a day. 60 tablet 0 omega 7-jzk-zno-fish oil (FISH OIL) 100-160-1,000 mg cap Take by mouth. (Patient not taking: Reported on 09/17/2023) No current facility-administered medications for this visit. [...] couple times a week Drug use: Never REVIEW OF SYSTEMS See [...] lymphangitis, no SSI. No hyperkeratotic tissue. Musculoskeletal/Orthopaedic: No edema is noted to posterior ankle and calf right foot. There is good plantarflexory strength of the foot against resistance. Pt was able to perform plantarflexion and dorsiflexion of ankle joint. No palpable dell noted. There is no local swelling or erythema noted. MRI: IMPRESSION: 1. Full-thickness disruption of the [...] MRI confirmed rupture of achilles at myotendinous junction, treated conservatively Plan: - A comprehensive history and physical examination were preformed. The patient was educated on clinical and radiographic findings, diagnosis and treatment plans. Patient state that he understands all that has been explained and all questions were answered to his apparent satisfaction. - Continue with activities as symptoms dictate. - Able to progress to high impact activities as desired. - RTC prn Angus Hagen DPM PGY-3 I personally saw and evaluated the patient. I reviewed the resident's note. I agree with the resident's assessment and plan unless otherwise noted. Rickey Woodruff DPM, FACFAS REVIEW OF SYSTEMS: GENERAL: Well developed, well nourished. No acute distress PAIN: Negative for pain, history of chronic pain or current treatment for chronic pain conditions CARDIOVASCULAR: A-fib MSK: Negative for joint swelling SKIN: Negative for lesions, rash, itching, metal sensitivity NEURO: Negative for seizure, trauma, numbness/tingling of extremities. ENDOCRINE: Negative for diabetic associated symptoms HEMATOLOGY: Warfarin Jenny Torres MA documented in this encounter [facility] 09-14-2023 History of Presen t illness Narrative SUBJECTIVE: Ru Workman is a 68 year old male who presents in follow up of HTN. PMH Afib, elevated PSA, melanoma, SHANNON. Patient denies changes in health since last office visit. Reports feeling well. Denies concerns or complaints today. He went to ER on 09/07/23 for left knee pain. I reviewed patients past medical, surgical, social, and family histories today and updated chart. Allergies, chronic medications, and supplements were also reviewed and list is now up to date. 09/07/23 09/07/2023 3:46 PM - Radiology, Oru In Impression IMPRESSION: Negative study for proximal DVT in the left lower extremity. Negative study for calf DVT in the left lower extremity. Negative study for superficial thrombophlebitis in the imaged segments of the left lower extremity. There is a 7 x 3.8 x 2.2 cm popliteal fossa/Wynn's cyst He reports pain and swelling have resolved. States his right ankle pain is improving. He is currently in PT for this. He has 4 wks left. HTN: Mr. Workman indicates that he is feeling well and denies any symptoms referable to elevated blood pressure. Specifically denies headache, chest pain, palpitations, dyspnea, claudication symptoms, orthopnea, fatigue, and PND. Patient denies any side effects of his medication(s) and is compliant with their regimen. He does not check BP's generally. Ru has limited mobility and can not participate in aerobic exercise. He watches his diet for sodium, low fat and low cholesterol some of the time. He is taking metoprolol 50 mg twice daily and cardizem 240 mg daily. Last 3 Encounter BP Readings: Date: BP: 09/14/2023 138/80 09/07/2023 121/79 07/30/2023 124/76 Afib: Dx 2020. He is taking coumadin 8 mg on , , and 6 mg rest of days. He had colonoscopy last week and held coumadin and he missed his dose Thursday. Denies any symptoms related to afib, denies unusual bleeding. He does notice easy bruising. Reports mainly on forearm. He is also taking cardizem daily for management. This was started on this in [place] when he was diagnosed. Elevated PSA: since at least 2013. Had prostate biopsy in 01/25/2014 for elevated PSA of 5.7 in [place]. 12/20/21 PSA 10.5. most recent PSA 01/07 of 8.81. He is seeing Dr Tai. He was last seen 12/30/22. He had MRI fusion bx on 06/26/22 path benign. Luts okay. Was on flomax with no noted change in Luts. He did stop this. Reported muscle wasting when taking. He was started on finsteride 5 mg daily for this in december. he has follow up on 01/05/[address] Tai. Reports home BPs 120-130s/70s. Melanoma: Dx 1991, lower back. It was removed x 3. He goes yearly for check up. He is seeing DR Montalvo in [place] yearly for skin checks. He reports he has an appt coming up. SHANNON: [id number] in [place]. He wears CPAP nightly. He reports it has worked well for him. States he is no longer tired and no longer takes naps. Preventative: he is not interested in flu, COVID, or RSV vaccines. He has had 2 COVID vaccine. Last colonoscopy 2016 in [place], reports one polyp. He does not smoke or chew tobacco. He reports cutting back on alcohol. States stop drinking during the week. Reports drinking 8 cocktails on the weekends. Reports he cut back about a month ago. States he was drinking nightly Some elements of above documentation were copied from my progress note of 03/11/23 and have been reexamined and updated where appropriate. All elements reflect the current assessment and medical decision making today . PAST MEDICAL HISTORY Diagnosis Date A-fib (HCC) BPH with obstruction/lower urinary tract symptoms SHANNON (obstructive sleep apnea) Personal history of malignant melanoma of skin Rupture of right Achilles tendon Septic bursitis of elbow PAST SURGICAL HISTORY Procedure Laterality Date PAST [...] times a week Drug use: Never Family history reviewed. ALLERGIES No Known Allergies Current Outpatient Medications Medication Sig warfarin (COUMADIN) 5 mg tablet Take 1 tablet by mouth once daily. ondansetron (ZOFRAN) 8 mg tablet Take 1 tablet by mouth every 8 hours as needed for nausea/vomiting. dilTIAZem CD (CARDIZEM CD, CARTIA XT) 240 mg 24 hr capsule Take 1 capsule by mouth once daily. lactobacillus rhamnosus (CULTURELLE) 10 billion cell capsule Take 2 capsules by mouth two times a day for 14 days. loperamide (IMODIUM) 2 mg cap(s) Take 1 capsule by mouth three times a day as needed for diarrhea for up to 7 days. metoprolol succinate ER (TOPROL XL) 50 mg 24 hr tablet Take 1 tablet by mouth two times a day. warfarin (COUMADIN) 2 mg tablet Take 1 tablet by mouth daily as directed. sildenafil (VIAGRA) 50 mg tablet TAKE 1 TABLET BY MOUTH NEEDED 30 - 60 MINUTES BEFORE SEXUAL INTERCOURSE warfarin (COUMADIN) 4 mg tablet TAKE 2 TABLETS 1 TIME DAILY INSTRUCTED omega 8-rgg-zjw-fish oil (FISH OIL) 100-160-1,000 mg cap Take by mouth. VIT B COMPLEX 100 COMBO NO.2 ORAL Take by mouth. vitamin D3-vit K1-vit MK4-MK7 50-500-1,500 mcg cap Take by mouth. No current facility-administered medications for this visit. Review of Systems Constitutional: Negative for chills, diaphoresis, fever, malaise/fatigue and weight loss. HENT: Negative for congestion, ear pain, sore throat and tinnitus. Eyes: Negative for blurred vision, double vision, photophobia and pain. Respiratory: Negative for cough, sputum production, shortness of breath and wheezing. Cardiovascular: Positive for leg swelling. Negative for chest pain, palpitations and orthopnea. Chronic swelling in legs wears compression socks and controls this. Gastrointestinal: Negative for abdominal pain, blood in stool, constipation, diarrhea, heartburn, melena, nausea and vomiting. Genitourinary: Negative for dysuria, frequency, hematuria and urgency. Musculoskeletal: Negative for back pain, falls, joint pain, myalgias and neck pain. Cyst right lateral wrist. Causing increase pain. Skin: Negative for itching and rash. Neurological: Negative for dizziness, tingling, tremors, sensory change, speech change, focal weakness, weakness and headaches. Endo/Heme/Allergies: Negative for environmental allergies and polydipsia. Does not bruise/bleed easily. Psychiatric/Behavioral: Negative for depression and substance abuse. The patient is not nervous/anxious and does not have insomnia. 09/14/23 0742 09/14/23 0751 BP: 142/80 138/80 BP Site: Left Arm BP Position: Sitting BP Cuff Size: Large Adult Pulse: 66 Resp: 18 Temp: 36.4 C (97.6 F) TempSrc: Oral SpO2: 97% Weight: 96.2 kg (212 lb) Height: 182.9 cm (6') Physical Exam Vitals and nursing note reviewed. Constitutional: General: He is not in acute distress. Appearance: Normal appearance. He is not diaphoretic. HENT: Head: Normocephalic and atraumatic. Right Ear: External ear normal. Left Ear: External ear normal. Nose: Nose normal. Mouth/Throat: Pharynx: No oropharyngeal exudate. Eyes: General: [...] No tenderness. Normal range of motion. Right wrist: Swelling present. No deformity, effusion or tenderness. Normal range of motion. Left wrist: Normal. Cervical back: Normal range of motion and neck supple. Comments: Lateral right wrist cyst Skin: General: Skin is warm and dry. Coloration: Skin is not pale. Findings: No erythema or rash. Nails: There is no clubbing. Neurological: Mental Status: He is alert and oriented to person, place, and time. Sensory: Sensation is intact. Motor: Motor function is intact. No abnormal muscle tone. Coordination: Coordination normal. Gait: Gait is intact. Deep Tendon Reflexes: Reflexes are normal and symmetric. Psychiatric: Mood and Affect: Mood and affect normal. Behavior: Behavior normal. Thought Content: Thought content normal. Cognition and Memory: Memory normal. Judgment: Judgment normal. Latest Ref Rng 09/18/2022 12/30/2022 02/10/2023 04/28/2023 04/30/2023 09/14/2023 WBC 3.70 - 11.00 k/uL 10.57 RBC [...] Abs Lymph 1.00 - 4.00 k/uL 1.06 [place]oc[place]ontas% % 2.0 Abs [place]as <0.87 k/uL 0.21 Eosin% % 1.0 Abs Eosin <0.46 k/uL 0.11 Baso% % 0.0 Abs Baso <0.11 k/uL 0.00 Flora% % 2.0 Platelet Estimate Adequate Red Cell Morph Reviewed: unremarkable DTYPE Manual Glucose 74 - 99 mg/dL 120 (H) BUN 9 - 24 mg/dL 23 Creatinine 0.73 - 1.22 mg/dL 1.12 Sodium 136 - 144 mmol/L 141 Potassium 3.7 - 5.1 mmol/L 4.0 Chloride 97 - 105 mmol/L 109 (H) CO2 22 - 30 mmol/L 21 (L) Anion Gap 9 - 18 mmol/L 11 Calcium 8.5 - 10.2 mg/dL 9.3 eGFR >=60 mL/min/1.73m 72 Cholesterol, Total <200 mg/dL 253 (H) Triglyceride <150 mg/dL 79 HDL Cholesterol >39 mg/dL 72 Non HDL Cholesterol <130 mg/dL 181 (H) Fasting Time hrs 12 VLDL Cholesterol <30 mg/dL 16 TC:HDL Ratio <5.10 3.51 LDL Cholesterol <100 mg/dL 165 (H) LDL:HDL Ratio <2.54 2.29 INR (POCT) 0.8 - 1.2 1.8 (H) Internal Quality Check Acceptable TSH 0.270 - 4.200 mIU/L 2.820 Vitamin D 25 Hydroxy >=30.0 ng/mL 45.6 PSA <2.60 ng/mL 8.81 (H) Uric Acid 4.0 - 8.1 mg/dL 5.1 Legend: (H) High (L) Low ASSESSMENT/PLAN: 1. Primary hypertension - ICD9: 401.9, ICD10: I10 (primary diagnosis) - Improving control, improved on recheck - Continue current medications - Recommend home blood pressure monitoring, to bring results to next visit - Encouraged sodium restriction, DASH or Mediterranean diet - Recommend regular aerobic exercise - Reviewed risks of hypertension and principles of treatment 2. Atrial fibrillation, unspecified type (HCC) - ICD9: 427.31, ICD10: I48.91 - INR 1.8, he held coumadin last week due to colonoscopy and missed dose 2 days ago. - continue current dose of coumadin. Recheck in 2 wks. - INR FINGERSTICK B/O 3. Malignant melanoma of torso excluding breast (HCC) - ICD9: 172.5, ICD10: C43.59 - continue yearly skin checks with Dr Cruz. 4. SHANNON (obstructive sleep apnea) - ICD9: 327.23, ICD10: G47.33 - Chronic controlled. - continue CPAP nightly. 5. Elevated prostate specific antigen (PSA) - ICD9: 790.93, ICD10: R97.20 - follow up with DR Tai for management. 6. Ganglion cyst of wrist, right - ICD9: 727.41, ICD10: M67.431 - referral to ortho - CONSULT TO ORTHOPAEDICS Ryan Edwards APRN.WAFFLE MACHINE OPERATOR documented in this encounter [facility] 09-09-2023 History of Presen t illness Narrative ED Follow Up: Patient discharged from [facility] ED on 09/07/23. 1. How are you feeling since your ED visit? Better Have your symptoms improved or resolved? Yes 2. Were you prescribed any medications while in the ED or advised to stop any medication? Yes - If yes, were you able to fill your prescriptions? Yes -if stopped medication, what was the medication? N/A 3. Were you advised to schedule a follow up appointment with your provider? Yes - If no, Do you feel like you need an appointment scheduled? Yes - If yes, Do you need this scheduled now or has this already been scheduled? Yes 4. Were you able to contact the office or investigation officer provider prior to your ED visit? No 5. Is there anything else I can do for you today? No Edel Johns MA documented in this encounter [facility] 08-31-2023 History of Presen t illness Narrative Episode Visit Count: 3 Therapist That Will Accept/Oversee The Plan Of Care: Mike Peacock Start of Care Date: 08/17/23 Onset Date: 03/28/23 Plan of Care Certification Date: 08/17/23 Next Certification Due Date: 10/16/23 Patient Identified by Name and Date of : Yes REHABILITATION AND SPORTS THERAPY PHYSICAL THERAPY TREATMENT NOTE ASSESSMENT: Ru Nataliia Jacinta tolerated the session with expected muscle soreness. He demonstrated difficulty with lacking strength in calf muscles to progress to standing heel lifts and improvements in standing static balance. The patient will continue to benefit from ongoing skilled physical therapy to progress toward set goals. PLAN FOR NEXT VISIT: assess increased band resistance with right ankle plantar flexion in long sitting progress to shuttle single leg calf raise , continue to stabilize abdominals and hips for cor strength and balance SUBJECTIVE: patient reports low back gets stiff about 1/2 mile into 1 mile walk, no complaints with right achilles tendon Pain: Pain Pain Level: 0 Post Treatment Pain Post Treatment Pain Level: No Change OBJECTIVE MEASURES WITH LEVEL OF FUNCTION: TREATMENT: Therapeutic Exercise: 1: long sitting manual calf stretch right /left 30 second hold x 2 each 2: long sitting manual resistance vs toe extension and ankle dorsi flexion 5 second hold x 5 x 2 right /left 3: long sitting ankle plantar flexion purple tb 10 x , erwin tb , increased to erwin tb for HEP10 x 2 with erwin 4: standing bilateral calf raise 10 x , decreaed ROM 5: standing pallof press erwin tb 10 x right /left Skilled Intervention: Patient was educated in proper exercise technique and purpose for exercises. Skilled judgment was used in selection of appropriate interventions. Neuromuscular Re-Education: 1: *standing tandem stance 15 second hold x 3 right /left 2: *standing forward retro leans 10 x each Skilled Intervention: Patient education as noted with additions to HEP Billing Therapeutic Exercise Treatment Minutes: 30 Neuromuscular Re-Education Treatment Minutes: 10 Skilled Treatment Time Minutes (timed and untimed codes): 40 Total Session Time (minutes): 40 Session Start Time : 839 Session Stop Time : 919 Kyrie Gr PTA documented in this encounter [facility] 08-25-2023 History of Presen t illness Narrative Episode Visit Count: 2 Therapist That Will Accept/Oversee The Plan Of Care: Mike Peacock Start of Care Date: 08/17/23 Onset Date: 03/28/23 Plan of Care Certification Date: 08/17/23 Next Certification Due Date: 10/16/23 Patient Identified by Name and Date of : Yes REHABILITATION AND SPORTS THERAPY PHYSICAL THERAPY TREATMENT NOTE ASSESSMENT: Ru Olivaspapito tolerated the session with expected muscle soreness. He demonstrated improvements in static standing balance . The patient will continue to benefit from ongoing skilled physical therapy to progress toward set goals. PLAN FOR NEXT VISIT: continue to address standing balance right le and strength in right calf , if no icnreased pain in right foot or back add tandtem stance and forward retro leans to HEP HEP , SUBJECTIVE: patient no complaints right achilles tendon, patient walking about a mile every day for last 3 weeks Pain: Pain Pain Level: 0 Pain Location: Calf - Right Post Treatment Pain Post Treatment Pain Level: No Change OBJECTIVE MEASURES WITH LEVEL OF FUNCTION: TREATMENT: Therapeutic Exercise: 1: nu step seat 11 level 3 ue/le 7 min 2: long sitting 4 way right ankle PRE purple tb 10 x each 3: sidelying slr 10 x 2 right /left 4: *seated and staanding pallof press erwin tb 10 x 2 resisting pull from right , standing version given for HEP Skilled Intervention: Patient was educated in proper exercise technique and purpose for exercises. Skilled judgment was used in selection of appropriate interventions. Neuromuscular Re-Education: 1: standing with left toe on groung increasing right le wieghtbearing 30 second hold , 27 second hold 2: standing tandem stance with modified wider base of support 15 second x 2 , with right toe behind left heel 15 seocnd hold x 2 3: standing in corner forward /rietro leans 10 x each Skilled Intervention: progress static standing balance Billing Therapeutic Exercise Treatment Minutes: 15 Neuromuscular Re-Education Treatment Minutes: 25 Skilled Treatment Time Minutes (timed and untimed codes): 40 Total Session Time (minutes): 44 Session Start Time : 0751 Session Stop Time : 08 Kyrie Gr PTA documented in this encounter [facility] 08-25-2023 History of Presen t illness Narrative Pt here for his INR pts Previous INR 2.1 Pts current dose 6 mg Sun,Tues,Thurs,Sat 8 mg the rest of the week Pts INR today 2.1 Pt is scheduled for Colonoscopy on 09/07/23 pt is planing on stopping his coumadin 5 days prior to his colonoscopy instructed by Gastro. Libby Barkley MA documented in this encounter [facility] 08-17-2023 History of Presen t illness Narrative Images from the original note were not included. Episode Visit Count: 1 Therapist That Will Accept/Oversee The Plan Of Care: Mike Peacock Start of Care Date: 08/17/23 Onset Date: 03/28/23 Plan of Care Certification Date: 08/17/23 Next Certification Due Date: 10/16/23 Patient Identified by Name and Date of : Yes REHABILITATION AND SPORTS THERAPY PHYSICAL THERAPY EVALUATION PLAN OF CARE: Assessment: Ru Workman presents with diagnosis of achilles rupture that interferes with walking, walking in the community, stair negotiation . He presents with impairments in flexibility, gait, overall function, and strength. PROMIS (Patient-Reported Outcomes Measurement Information System) scores were reviewed and identified as within normal limits. Prognosis for therapy is Good due to: current objective clinical presentation . He will benefit from skilled therapy services to meet the goals established for this plan of care as noted below. Goals for Episode of Care: created on 08/17/23 through 10/16/23 Pt will have 5/5 R hip strength Increase ROM of R ankle for improved gait Increased strength of ankle to 4+/5 for walking Normal gait. Reciprocal stair negotiation. Ability to single leg stand for 15 seconds RLE. Patient Goals: gain strength and function Planned Interventions, Frequency, and Duration: Current Frequency: 1x/week Duration: 8 weeks Total Number of Visits Planned: 9 Planned Treatment Interventions: Therapeutic exercise (95726), Neuromuscular re-education (60679), Manual therapy (49754), Therapeutic activities (97076), Gait Training (80211) PLAN FOR NEXT VISIT: See pt to progress balance, hip and foot strength. Patient demonstrates good understanding of plan of care and treatment. The above goals and plan of care were discussed and agreed upon by patient/family. SUBJECTIVE: Pt had tightness in R achilles then he had a fall and resulting rupture. He ruptured the L several years ago. Pt has been in a splint, cast, boot. He was on crutches for 3 months non weight bearing. He has been walking in a boot for the last month. Patient Goals: gain strength and function Functional Limitations: walking, walking in the community, stair negotiation Prior Level of Function: Independent without limitations Relevant History Past Relevant Medical Conditions: Cancer Past Relevant Surgical Conditions: Total Knee Replacement-Right Intake Information: Prescription present Pain: Pain Pain Level: 0 Post Treatment Pain Post Treatment Pain Level: 0 PROMIS Scales 04/01/2023 Higher is Better Phys Func - Score 28 (severe dysfunction) Phys Func - Percentile 1 T-scores: mean of general population = 50. 5 points is clinically meaningfully difference Percentiles provide an indication of how the patient's score ranks in relation to the general population. Higher percentile rankings indicate better function/quality of life. 50th percentile is the average of the general population and indicates half of respondents had a worse score. OBJECTIVE MEASURES WITH LEVEL OF FUNCTION: LE AROM R Ankle Dorsiflexion: 10 Degrees R Ankle Plantar Flexion: 30 Degrees R Ankle Inversion: 30 R Ankle Eversion: 20 L Ankle Dorsiflexion: 8 Degrees L Ankle Plantar Flexion: 40 Degrees L Ankle Inversion: 55 L Ankle Eversion: 15 LE Strength R Hip Extension: 4-/5 R Hip Flexion (L2): 4-/5 R Hip ABduction: 4-/5 R Ankle Dorsiflexion (L4): 4+/5 R Ankle Plantar Flexion: 4-/5 R Ankle Inversion: 4-/5 R Ankle Eversion: 4-/5 R Great Toes Extension (L5, S1): 4+/5 L Hip Extension: 5/5 L Hip Flexion (L2): 5/5 L Knee Flexion: 5/5 L Ankle Dorsiflexion (L4): 5/5 L Ankle Plantar Flexion: 5/5 L Ankle Inversion: 5/5 L Ankle Eversion: 5/5 Functional Performance Test Results 10 Meter Walk Test Trial 1 (seconds): 5.46 10 Meter Walk Test Trial 2 (seconds): 5.75 10 Meter Walk Test Average (m/sec): 1.07 Timed Up and Go (sec): 10 sec Education: TREATMENT: PT Treatment Interventions: Therapeutic Exercise Evaluation Therapeutic Exercise: 1: * standing in doorway with opp foot toe touch only 30sec 2: *4 way theraband purple band 3: *ankle inv stretch Skilled Intervention: Patient was educated in proper exercise technique and purpose for exercises. Skilled judgment was used in selection of appropriate interventions. Billing * Evaluation Low Complexity: 1 Unit Therapeutic Exercise Treatment Minutes: 10 Total Session Time (minutes): 39 Session Start Time : 1333 Session Stop Time : 1412 Mike Peacock PT documented in this encounter [facility] 08-10-2023 History of Presen t illness Narrative Continue current dose and recheck in 2 wks to ensure he stays where he is at Pt here for his INR pts Previous INR 2.0 Pts current dose 8 mg Thu and 6 mg the rest of the week Pts INR today 2.1 Please advise of further instruction Libby Barkley MA documented in this encounter [facility] 08-06-2023 History of Presen t illness Narrative CC: follow upon Achilles tendon injury (DOI: 03/28/23) HPI: This 68 year old male with PMH indicated below presents for follow up of achilles tendon rupture concern. He states he is doing well. Has Been WBAT with CAM Boot with no heel lifts. Has been WBAT with no CAM Boot around the house. He denies any pain at this time and denies any calf pain, SOB. Denies any other pedal complaints. PAST MEDICAL HISTORY Diagnosis Date A-fib (HCC) BPH with obstruction/lower urinary tract symptoms SHANNON (obstructive sleep apnea) Personal history of malignant melanoma of skin Rupture of right Achilles tendon Septic bursitis of elbow Current Outpatient Medications Medication Sig Dispense Refill warfarin (COUMADIN) 5 mg tablet Take 1 tablet by mouth once daily. 30 tablet 0 ondansetron (ZOFRAN) 8 mg tablet Take 1 tablet by mouth every 8 hours as needed for nausea/vomiting. 12 tablet 1 warfarin (COUMADIN) 2 mg tablet Take 1 tablet by mouth daily as directed. 90 tablet 3 sildenafil (VIAGRA) 50 mg tablet TAKE 1 TABLET BY MOUTH NEEDED 30 - 60 MINUTES BEFORE SEXUAL INTERCOURSE 15 tablet 2 warfarin (COUMADIN) 4 mg tablet TAKE 2 TABLETS 1 TIME DAILY INSTRUCTED 180 tablet 1 omega 5-zfz-njh-fish oil (FISH OIL) 100-160-1,000 mg cap Take by mouth. VIT B COMPLEX 100 COMBO NO.2 ORAL Take by mouth. vitamin D3-vit K1-vit MK4-MK7 50-500-1,500 mcg cap Take by mouth. dilTIAZem CD (CARDIZEM CD, CARTIA XT) 240 mg 24 hr capsule Take 1 capsule by mouth once daily. 30 capsule 0 lactobacillus rhamnosus (CULTURELLE) 10 billion cell [...] two times a day. 60 tablet 0 No current facility-administered medications for this visit. [...] couple times a week Drug use: Never REVIEW OF SYSTEMS See [...] lymphangitis, no SSI. No hyperkeratotic tissue. Musculoskeletal/Orthopaedic: No edema is noted to posterior ankle and calf right foot. There is good plantarflexory strength of the foot against resistance. Pt was able to perform plantarflexion and dorsiflexion of ankle joint. No palpable dell noted. There is no local swelling or erythema noted. MRI: IMPRESSION: 1. Full-thickness disruption of the [...] MRI confirmed rupture of achilles at myotendinous junction, treated conservatively Plan: - A comprehensive history and physical examination were preformed. The patient was educated on clinical and radiographic findings, diagnosis and treatment plans. Patient state that he understands all that has been explained and all questions were answered to his apparent satisfaction. - Prescription for Physical Therapy. Start Physical Therapy 2 weeks. - Continue WBAT with CAM Boot for 2 more weeks - Transition to regular shoes in 2 weeks - Continue with Theraband - Could walk but stay away from hills - Follow up 6 weeks Dillan Lafleur DPM PGY- 3 I personally saw and evaluated the patient. I reviewed the resident's note. I agree with the resident's assessment and plan unless otherwise noted. Rickey Woodruff DPM, FACFAS REVIEW OF SYSTEMS: GENERAL: Well developed, well nourished. No acute distress PAIN: Negative for pain, history of chronic pain or current treatment for chronic pain conditions CARDIOVASCULAR: A-fib MSK: Negative for joint swelling SKIN: Negative for lesions, rash, itching, metal sensitivity NEURO: Negative for seizure, trauma, numbness/tingling of extremities. ENDOCRINE: Negative for diabetic associated symptoms HEMATOLOGY: Warfarin Jenny Torres MA documented in this encounter [facility] 08-03-2023 History of Presen t illness Narrative Pt here for his INR pts Previous INR 1.5 Pts current dose 10 mg 7.5 mg Thu,Sat 5 mg Sun Pts INR today 2.0 Per CN pt to take 8 mg Thu,Thu,Thu 6 mg the rest of the week and recheck in 1 week Libby Barkley MA documented in this encounter [facility] 07-30-2023 History of Presen t illness Narrative Called pt let pts know the results pt can't make it in on Thursday due to being out of town he will come in on Thursday morning instructed pt to take 5 mg on Thursday Libby Barkley MA 10 mg today, 7.5 mg Thursday and 5 mg on Thursday. Recheck on Thursday to make sure he is coming up. Patient is here to check their INR Last INR: 1.5 Current Dose: 5 mg on , Thursday, and Thursday. 7.5 mg all other days INR: 1.5 Edel Johns MA documented in this encounter [facility] 07-23-2023 History of Presen t illness Narrative Patient is here to check their INR Last INR: 1.8 Current Dose: 7.5 mg on and Thursday 5 mg all other days INR: 1.[address] Fournier take 5 mg , Thursday 7.5 all other days Edel Johns MA documented in this encounter [facility] 07-20-2023 Miscellaneous Notes Paperwork done Thu Fournier DO CN patient. Received fax from [facility] requesting signature for endoscopy clearance. Placed in dr. Fournier green folder to fill out. Elder Cordova MA documented in this encounter [facility] 07-16-2023 Miscellaneous Notes Patient requesting refills as follows: Requested Prescriptions Pending Prescriptions Disp Refills warfarin (COUMADIN) 5 mg tablet 30 tablet 0 Sig: Take 1 tablet by mouth once daily. Please review and advise. Edel Johns MA documented in this encounter [facility] 07-16-2023 History of Presen t illness Narrative Patient here for INR check. Last INR was 1.5 on 07/13/23, patient took coumadin 7.5 mg that day then 5 mg daily after that, denies missing any doses. Patient's INR today was 1.8. Per conversation with Dr. Fournier as Rayn Edwards CNP is out of the office patient informed to take 7.5 mg Thursday, , 5 mg all other days and recheck in 1 week. Patient verbalized understanding. Dana Davis MA documented in this encounter [facility] 07-09-2023 History of Presen t illness Narrative CC: follow upon Achilles tendon injury (DOI: 03/28/23) HPI: This 68 year old male with PMH indicated below presents for follow up of achilles tendon rupture concern. Patient is approximately 15 weeks out from injury. He has been WBAT in the CAM boot with 3 heel lifts. He denies any current pain. He is on Coumadin normally for AFIB. He denies any pain at this time and denies any calf pain, SOB. Denies any other pedal complaints. PAST MEDICAL HISTORY Diagnosis Date A-fib (HCC) BPH with obstruction/lower urinary tract symptoms SHANNON (obstructive sleep apnea) Personal history of malignant melanoma of skin Rupture of right Achilles tendon Septic bursitis of elbow Current Outpatient Medications Medication Sig Dispense Refill ondansetron (ZOFRAN) 8 mg tablet Take 1 tablet by mouth every 8 hours as needed for nausea/vomiting. 12 tablet 1 warfarin (COUMADIN) 2 mg tablet Take 1 tablet by mouth daily as directed. 90 tablet 3 sildenafil (VIAGRA) 50 mg tablet TAKE 1 TABLET BY MOUTH NEEDED 30 - 60 MINUTES BEFORE SEXUAL INTERCOURSE 15 tablet 2 warfarin (COUMADIN) 4 mg tablet TAKE 2 TABLETS 1 TIME DAILY INSTRUCTED 180 tablet 1 omega 7-nvf-arr-fish oil (FISH OIL) 100-160-1,000 mg cap Take by mouth. VIT B COMPLEX 100 COMBO NO.2 ORAL Take by mouth. vitamin D3-vit K1-vit MK4-MK7 50-500-1,500 mcg cap Take by mouth. apixaban (ELIQUIS) 5 mg tab(s) Take 1 tablet by mouth two times a day. 60 tablet 2 dilTIAZem CD (CARDIZEM CD, CARTIA XT) 240 mg 24 hr capsule Take 1 capsule by mouth once daily. 30 capsule 0 lactobacillus rhamnosus (CULTURELLE) 10 billion cell [...] two times a day. 60 tablet 0 No current facility-administered medications for this visit. [...] couple times a week Drug use: Never REVIEW OF SYSTEMS See [...] lymphangitis, no SSI. No hyperkeratotic tissue. Musculoskeletal/Orthopaedic: No edema and ecchymosis is noted to posterior ankle and calf right foot. There is good plantarflexory strength of the foot against resistance. Pt was able to perform plantarflexion and dorsiflexion of ankle joint. No palpable dell noted at this time. There is no local swelling or erythema noted. Radiographs: 3 views of the right ankle [...] MRI confirmed rupture of achilles at myotendinous junction, treated conservatively ( ~12 weeks out ) Plan: - A comprehensive history and physical examination were preformed. The patient was educated on clinical and radiographic findings, diagnosis and treatment plans. Patient state that he understands all that has been explained and all questions were answered to his apparent satisfaction. - Patient able to transition to 2 heel lifts. Can take each heel lift after one week each. Will get to neutral position after two weeks. - Theraband dispensed today for exercises. Discussed not going past 90 degrees. . - Start range of motion exercises with up and down and no stretching at the ankle joint. - Follow up in 4 weeks Angus Hagen DPM PGY-3 I personally saw and evaluated the patient. I reviewed the resident's note. I agree with the resident's assessment and plan unless otherwise noted. Rickey Woodruff DPM, FACFAS REVIEW OF SYSTEMS: GENERAL: Well developed, well nourished. No acute distress PAIN: Negative for pain, history of chronic pain or current treatment for chronic pain conditions CARDIOVASCULAR: A-fib MSK: Negative for joint swelling SKIN: Negative for lesions, rash, itching, metal sensitivity NEURO: Negative for seizure, trauma, numbness/tingling of extremities. ENDOCRINE: Negative for diabetic associated symptoms HEMATOLOGY: Warfarin Jenny Torres MA documented in this encounter [facility] 07-09-2023 Instructions Angus Hagen DPM - 07/09/2023 11:29 AM EST You will have two heel lifts in today. Wear the boot with both heel lifts for one week In one week, take one heel lift out. Walk for one week with one heel lift. Then, able to take the last heel lift out to get to neutral position after the 2 week period. Use the theraband to do achilles exercises. Still do not go past 90 degrees. documented in this encounter [facility] 07-08-2023 Miscellaneous Notes Pt is requesting a temporary handicap parking permit documented in this encounter [facility] 07-06-2023 History of Presen t illness Narrative Pt here for his INR pts Previous INR 2.9 Pts current dose alternating 4 mg with 5 mg Pts INR today 2.1 Per Cn instructions pt to take 5 mg daily and recheck in 1 week Libby aBrkley MA documented in this encounter [facility] 07-01-2023 History of Presen t illness Narrative Pt here for his INR pts Previous INR 3.8 Pts currently held coumadin Pts INR today 2.9 Per CN instructions pt to take 4 mgWe,Fri 5 mg the rest of the week recheck on Thursday Libby Barkley MA documented in this encounter [facility] 06-29-2023 History of Presen t illness Narrative Pt here for his INR pts Previous INR 2.9 Pts current dose 5 mg Thu,Thu,Thu 6 mg the rest of the week Pts INR today 3.8 Per Cn pt to hold dose and recheck on Thu Called pt let him know the instructions Libby Barkley MA documented in this encounter [facility] 06-25-2023 Instructions Shaista Dan DPM - 06/25/2023 1:56 PM EST Weight bearing as tolerated in Cam boot with heel lifts. Start range of motion exercises with up and down and no stretching at the ankle joint. Follow up in 2 weeks documented in this encounter [facility] 06-25-2023 History of Presen t illness Narrative CC: follow upon Achilles tendon injury (DOI: 03/28/23) HPI: This 68 year old male with PMH indicated below presents for follow up of achilles tendon rupture concern. Patient states the injury occurred on 03/28/23 when he slipped and felt a pop in the back of his leg with immediate pain. He had felt prodromal symptoms for approximately 1 month prior to injury. He has been NWB in tall cam boot with heel lifts. Patient was schedule for surgery over last few times but was unable to undergo surgery with couple episodes of c. Diff that lead to sepsis. He is on Coumadin normally for AFIB. He denies any pain at this time and denies any calf pain, SOB. Denies any other pedal complaints. PAST MEDICAL HISTORY Diagnosis Date A-fib (HCC) BPH with obstruction/lower urinary tract symptoms SHANNON (obstructive sleep apnea) Personal history of malignant melanoma of skin Rupture of right Achilles tendon Septic bursitis of elbow Current Outpatient Medications Medication Sig Dispense Refill vancomycin (VANCOCIN) 125 mg capsule Take 1 capsule by mouth four times daily for 10 days. 40 capsule 0 ondansetron (ZOFRAN) 8 mg tablet Take 1 tablet by mouth every 8 hours as needed for nausea/vomiting. 12 tablet 1 warfarin (COUMADIN) 2 mg tablet Take 1 tablet by mouth daily as directed. 90 tablet 3 sildenafil (VIAGRA) 50 mg tablet TAKE 1 TABLET BY MOUTH NEEDED 30 - 60 MINUTES BEFORE SEXUAL INTERCOURSE 15 tablet 2 warfarin (COUMADIN) 4 mg tablet TAKE 2 TABLETS 1 TIME DAILY INSTRUCTED 180 tablet 1 omega 7-tks-ofi-fish oil (FISH OIL) 100-160-1,000 mg cap Take by mouth. VIT B COMPLEX 100 COMBO NO.2 ORAL Take by mouth. vitamin D3-vit K1-vit MK4-MK7 50-500-1,500 mcg cap Take by mouth. apixaban (ELIQUIS) 5 mg tab(s) Take 1 tablet by mouth two times a day. 60 tablet 2 dilTIAZem CD (CARDIZEM CD, CARTIA XT) 240 mg 24 hr capsule Take 1 capsule by mouth once daily. 30 capsule 0 lactobacillus rhamnosus (CULTURELLE) 10 billion cell [...] two times a day. 60 tablet 0 No current facility-administered medications for this visit. [...] couple times a week Drug use: Never REVIEW OF SYSTEMS See [...] lymphangitis, no SSI. No hyperkeratotic tissue. Musculoskeletal/Orthopaedic: No edema and ecchymosis is noted to posterior ankle and calf right foot. There is decreased plantarflexory strength of the foot against resistance. Pt was able to perform plantarflexion and dorsiflexion of ankle joint. No palpable dell noted at this time. There is no local swelling or erythema noted. Radiographs: 3 views of the right ankle [...] MRI confirmed rupture of achilles at myotendinous junction, treated conservatively ( ~12 weeks out ) Plan: A comprehensive history and physical examination were preformed. The patient was educated on clinical and radiographic findings, diagnosis and treatment plans. Patient state that he understands all that has been explained and all questions were answered to his apparent satisfaction. - Dicussed that his injury is about 3 months out and has been in cast and now in tall Cam boot with satisfactory achilles strength with active ROM. We recommend that patient would benefit form conservative treatment at this time. Pt agrees with it. - Weight bearing as tolerated in Cam boot with heel lifts. - Start range of motion exercises with up and down and no stretching at the ankle joint. - Follow up in 2 weeks Total patient care time w/ pt was at least 45 minutes w/ at least 50% of the time spent reviewing the results of the recent imaging including (MRI,CT,EMG/NCV) counseling the pt on treatment options and coordinating their care. Shaista Dan DPM PGY-3 I personally saw and evaluated the patient. I reviewed the resident's note. I agree with the resident's assessment and plan unless otherwise noted. Rickey Woodruff DPM, FACFAS REVIEW OF SYSTEMS: GENERAL: Well developed, well nourished. No acute distress PAIN: Negative for pain, history of chronic pain or current treatment for chronic pain conditions CARDIOVASCULAR: A-fib MSK: Negative for joint swelling SKIN: Negative for lesions, rash, itching, metal sensitivity NEURO: Negative for seizure, trauma, numbness/tingling of extremities. ENDOCRINE: Negative for diabetic associated symptoms HEMATOLOGY: Warfarin Jenny Torres MA documented in this encounter [facility] 06-22-2023 History of Presen t illness Narrative Pt here for his INR pts Previous INR 2.2 Pts current dose 6 mg daily Pts INR today 2.9 Per Cn instructions pt to take 5 mg Mon,Wed,Fri 6 mg the rest of the week recheck in 1 week Libby Barkley MA documented in this encounter [facility] 05-07-2023 History of Presen t illness Narrative Transitional Care Management TCM Eligibility Documentation Program: Transitional Care Management Status: Enrolled Effective Dates: 05/01/2023 - present Responsible Staff: Katya Ortiz RN Discharge date: 04/30/2023 (Program start) Date of initial contact: 05/01/2023 Initial contact Target status: Successful; Contact made within 2 business days post-discharge Summary Discharged from: [facility] Admit Date: 04/22/23 D/C 04/30/23 Admitted for: Cellulitis of left Upper extremity Libby Barkley MA Provider Documentation Ru Workman is a [...] RVR (know dx follows with [facility] in [place]) that was difficult to control. He required multiple IV pushes and titration of his PO meds without success. ECHO ordered and was assessed by training executive who found that revealed normal left ventricular [...] TIME DAILY INSTRUCTED 180 tablet 1 omega 9-fsm-bql-fish oil (FISH OIL) 100-160-1,000 mg cap Take [...] Abs Lymph 1.00 - 4.00 k/uL 1.06 [place]as% % 2.0 Abs [place]as <0.87 k/uL 0.21 Eosin% % 1.0 Abs Eosin <0.46 k/uL 0.11 Baso% % 0.0 Abs Baso <0.11 k/uL 0.00 Flora% % 2.0 Platelet Estimate Adequate Red Cell [...] and surgical clearance - continue current medications. Ryna Edwards APRN.CNP May 06, 2023 1:38 PM I spent a total of 65 minutes on the date of the service which included preparing to see the patient, [id number] patient care, completing clinical documentation, obtaining and/or reviewing separately obtained history, performing a medically appropriate examination, counseling and educating the patient/family/caregiver, and ordering medications, tests, or procedures. documented in this encounter [facility] 05-05-2023 History of Presen t illness Narrative AG TRANSITIONAL CARE MANAGEMENT (TCM) FOLLOW-UP NOTE Provider Action/FYI: [facility] hospital f/u 05/07 at [facility] at 8:20am Patient states right leg is much less swollen and red. He is wrapping daily and keeping elevated. [facility] continues to see patient. Patient identified [...] leads screening tool questions performed? N/A N/A Supervisor Dental [facility] plan for next outreach: Will follow-up in one week Signature: Katya Ortiz RN May 05, 2023 documented in this encounter [facility] 05-04-2023 Miscellaneous Notes Cardiology is requesting we evaluate this patient for venous insuffiencey. Can be seen by any of us in the vein center. Thanks! documented in this encounter [facility] 05-01-2023 History of Presen t illness Narrative TRANSITIONAL CARE MANAGEMENT (TCM) COMMUNITY MONITORING PROGRAM - [place] Provider Action/FYI: [facility] d/c 04/30 Cellulitis left elbow [facility] f/u 05/07 at 8:20am w/Ryan Edwards New Medications: [...] is significant. Instructed to keep elevated. states [facility] nurse is currently present and starting care. SUMMARY: Pt discharged from [facility] on 04/30/23. Admitted for: Cellulitis left elbow Patient seen Inpatient CAM Visit? No. Patient seen ICARE Program? N/A. Contact made with patient: Yes Hi my name is Katya Ortiz RN and I am calling from the [facility] on behalf of your PCP, Ryan Edwards APRN.WAFFLE MACHINE OPERATOR I understand you were recently in the [...] like to speak with a social work produce team lead to help give you support for any [...] telephone visit with your PCP. ACTION TAKEN: [facility] Primary Care Provider Visit Scheduled: Yes [...] (or call on the way if possible). TCM Home Visit Referral Source of Stratification: TCM [facility] Admission Status: Discharged Readmission Risk Score: 18 ANTHONY Score: 2 Patient meets program referral criteria: No Patient does not qualify for High Risk TCM Home Visit program due to: Discharged home, does not meet program criteria Katya Ortiz RN May 01, 2023 1:34 PM documented in this encounter [facility] 04-28-2023 Miscellaneous Notes Pt is in hospital. We can remind him once he is discharged. This can wait to be completed ----- Message from Libby Barkley MA sent at 01/26/2023 11:48 AM EDT ----- Recheck Lipid panel documented in this encounter [facility] 04-16-2023 History of Presen t illness Narrative This note was created using Netsketriter. Subjective Ru Workman is a 68 year old male here today for follow up after [place] ER visit for right lower leg pain [...] several years ago, which was repaired in [place]. He states that this feels similar. No [...] related to afib. He did go to [facility] for surgical clearance for secondary to afib. We will fax clearance to them. He reports he has stress test and ECG scheduled on Thursday. HPI: Type of Surgery: Open repair achilles tendon Date of Surgery: 04/24/23 Surgeon: Dr Woodruff Place of Surgery: [facility] Functional Status of patient: Able to [...] mouth once daily. 90 tablet 1 omega 1-ntp-rzv-fish oil (FISH OIL) 100-160-1,000 mg cap Take [...] ortho. - CONSULT TO ORTHOPAEDICS Ryan Edwards APRN.WAFFLE MACHINE OPERATOR documented in this encounter [facility] 04-15-2023 History of Presen t illness Narrative [...] mouth once daily. 90 tablet 1 omega 1-uwa-pho-fish oil (FISH OIL) 100-160-1,000 mg cap Take [...] Woodruff DPM, FACFAS documented in this encounter [facility] 04-02-2023 History of Presen t illness Narrative [...] 2023 11:58 AM documented in this encounter [facility] 04-02-2023 History of Presen t illness Narrative [...] mouth once daily. 90 tablet 1 omega 3-ily-fxt-fish oil (FISH OIL) 100-160-1,000 mg cap Take [...] HEMATOLOGY: on coumadin documented in this encounter [facility] 03-31-2023 History of Presen t illness Narrative ED Follow Up: Patient discharged from [facility] ED on 03/28/23. 1. How are you feeling since your ED visit? Left VM for pt to call the office with questions or concerns Have your symptoms improved or resolved? Left VM for pt to call the office with questions or concerns 2. Were you prescribed any medications while in the ED or advised to stop any medication? Left VM for pt to call the office with questions or concerns - If yes, were you able to fill your prescriptions? Left VM for pt to call the office with questions or concerns -if stopped medication, what was the medication? Left VM for pt to call the office with questions or concerns 3. Were you advised to schedule a follow up appointment with your provider? Left VM for pt to call the [...] you able to contact the office or investigation officer provider prior to your ED visit? Left VM for pt to call the office with questions or concerns 5. Is there anything else I can do for you today? Left VM for pt to call the office with questions or concerns documented in this encounter [facility] 03-25-2023 History of Presen t illness Narrative ED Follow Up: Patient discharged from [facility] ED on 03/23/23. 1. How are you [...] you able to contact the office or investigation officer provider prior to your ED visit? Yes 5. Is there anything else I can do for you today? No documented in this encounter [facility] 03-11-2023 History of Presen t illness Narrative This note was created using Netsketriter. Subjective Ru Workman is a 68 year [...] management. This was started on this in [place] when he was diagnosed. Elevated PSA: since at least 2013. Had prostate biopsy in 01/25/2014 for elevated PSA of 5.7 in [place]. 12/20/21 PSA 10.5. most recent PSA 01/07 [...] 2 COVID vaccine. Last colonoscopy 2017 in [place], reports one polyp. He does not smoke [...] mouth once daily. 90 tablet 1 omega 5-isi-kyn-fish oil (FISH OIL) 100-160-1,000 mg cap Take [...] Tai - continue finasteride daily. Ryan Edwards APRN.WAFFLE MACHINE OPERATOR documented in this encounter [facility] 2023 Miscellaneous Notes Last OV 02/10/23 Apt 03/11/23 Pharmacy calls in requesting the following refill(s): Requested Prescriptions Pending Prescriptions Disp Refills sildenafil (VIAGRA) 50 mg tablet [Pharmacy Med Name: SILDENAFIL 50 MG TABLET] 15 tablet 2 Sig: TAKE 1 TABLET BY MOUTH NEEDED 30 - 60 MINUTES BEFORE SEXUAL INTERCOURSE Libby Barkley MA documented in this encounter [facility] 03-02-2023 History of Presen t illness Narrative Pt here for his INR pts Previous INR 3.1 Pts current dose Pts INR today 2.2 Please advise of instructions Per CN instructions pt to take 6 mg daily except 8 mg on Thursday Libby Barkley MA documented in this encounter [facility] 02-10-2023 Instructions Ryan Edwards APRN.BARBIE - 02/10/2023 8:26 AM EDT ASSESSMENT/PLAN: 1. Atrial fibrillation, unspecified type (HCC) - ICD9: 427.31, ICD10: I48.91 (primary diagnosis) - INR (POC) 2. Acute right ankle pain - ICD9: 719.47, 338.19, ICD10: M25.571 - URIC ACID BLOOD - CONSULT TO PODIATRY - XR ANKLE 2V AP/LAT RIGHT - CBC Ryan Edwards APRN.WAFFLE MACHINE OPERATOR documented in this encounter [facility] 02-10-2023 History of Presen t illness Narrative Images from the original note were not included. This note was created using Netsketriter. Subjective Ru Workman is a 67 year [...] possible achilles rupture. States he had left [place] rupture 8 yrs ago. Denies family hx [...] mouth once daily. 90 tablet 1 omega 2-bvk-nbs-fish oil (FISH OIL) 100-160-1,000 mg cap Take [...] recheck one month. - continue management with [facility]. - INR (POC) Ryan Edwards APRN.CNP I spent a total of 45 minutes on the date of the service which included preparing to see the patient, clvi-ah-zabk patient care, completing clinical documentation, obtaining and/or reviewing separately obtained history, performing a medically appropriate examination, counseling and educating the patient/family/caregiver, and ordering medications, tests, or procedures. documented in this encounter [facility] 02-04-2023 History of Presen t illness Narrative ED Follow Up: Patient discharged from [facility] ED on 02/01/2023. 1. How are you [...] you able to contact the office or investigation officer provider prior to your ED visit? Not applicable 5. Is there anything else I can do for you today? No Patient states steroid is helping at this time. Declined apt. Elder Cordova MA documented in this encounter [facility] 01-27-2023 Miscellaneous Notes Last OV 09/16/22 Labs 01/26/23 Pharmacy calls in requesting the following refill(s): Requested Prescriptions Pending Prescriptions Disp Refills warfarin (COUMADIN) 4 mg tablet [Pharmacy Med Name: WARFARIN SODIUM 4 MG TABLET] 180 tablet 1 Sig: TAKE 2 TABLETS 1 TIME DAILY INSTRUCTED Libby Barkley MA documented in this encounter [facility] 01-26-2023 Miscellaneous Notes Called pt let him know the results pt is not ready to start medication at this time. He just bought a bicycle and is going to start working on his diet Libby Barkley MA ----- Message from Ryan Edwards APRN.WAFFLE MACHINE OPERATOR sent at 01/26/2023 9:52 AM EDT ----- [...] reduce his risk. documented in this encounter [facility] 01-26-2023 History of Presen t illness Narrative Pt here for his INR pts Previous INR 2.1 Pts current dose Mon,Thu,Fri 8 mg the rest of the week 6 mg Pts INR today 2.5 Instructed pt to continue current dose recheck 1 month Libby Barkley MA documented in this encounter [facility] 01-06-2023 Miscellaneous Notes Patient informed of fasting lab order. Dana Davis MA ----- Message from Libby Barkley MA sent at 10/02/2022 2:31 PM EDT ----- Recheck lipid in 3 months Libby Barkley MA documented in this encounter [facility] 12-29-2022 History of Presen t illness Narrative Pt here for his INR pts Previous INR 1.9 Pts current dose 8 mg Mon,Wed,Fri 6 mg the rest of the week Pts INR today 2.1 Per CN instructions pt to continue current dose recheck in 1 month Libby Barkley MA documented in this encounter [facility] 12-15-2022 History of Presen t illness Narrative Called pt let him know the results Libby Barkley MA He is coming up. Continue current dose and recheck in 2 wks Pt here for his INR pts Previous INR 1.8 Pts current dose 8 mg Thu,Thu,Fri 6 mg the rest of the week Pts INR today 1.9 Please advise of further instructions Libby Barkley MA documented in this encounter [facility] 12-08-2022 History of Presen t illness Narrative Pt here for his INR pts Previous INR 2.3 Pts current dose 8 mg Tu,Thurs 6 mg the rest of the week Pts INR today 1.8 Per CN instructions pt to take 8 mg Thu,Thu,Thu 6 mg the rest of the week recheck 1 week Libby Barkley MA documented in this encounter [facility] 12-04-2022 Miscellaneous Notes Last OV 09/16/22 Labs 09/18/22 Pharmacy calls in requesting the following refill(s): Requested Prescriptions Pending Prescriptions Disp Refills dilTIAZem (CARDIZEM) 120 mg tablet 90 tablet 1 Sig: Take 1 tablet by mouth once daily. Libby Barkley MA documented in this encounter [facility] 12-04-2022 Instructions Ileana Quiroz MD, PhD - 12/04/2022 9:39 AM EDT Flashes and Floaters OFFICE NUMBER [phone] (Regular business hours) If you notice increased floaters and/or flashing lights or a dark curtain/shadow coming over the vision from any direction, please call Dr. Quiroz's office to come in to be seen. WHEELCHAIR VAN DRIVER DOCTOR [phone] (Evenings, weekends, holidays) Evenings, weekends and holidays If you are calling after regular business hours please call and ask to speak to the on-call exercise teacher. documented in this encounter [facility] 12-04-2022 History of Presen t illness Narrative Patient just moved to area and needs to establish retina care No history of diabetes 1. 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 Ileana Quiroz MD documented in this encounter [facility] 11-24-2022 History of Presen t illness Narrative Pt here for his INR pts Previous INR 3.9 Pts INR today 2.3 Pt to take 8 mg 6 mg the rest of the week and recheck in 2 weeks Libby Barkley MA documented in this encounter [facility] 11-20-2022 History of Presen t illness Narrative Pt here for his INR pts Previous INR 2.5 Pts current dose 6 mg Thu, ,Sat 8 mg the rest of the week Pts INR today 3.9 Per CN instructions pt to hold his Coumadin today resume 6 mg Fri,Sat Sun recheck on Thu11/24/22 Libby Barkley MA documented in this encounter [facility] 11-05-2022 History of Presen t illness Narrative Called pt with instructions he is to take 6 mg Sat 8 mg the rest of the week Recheck on November 20 Libby Barkley MA documented in this encounter [facility] 10-22-2022 History of Presen t illness Narrative Pt here for his INR pts Previous INR 2.1 Pt held his dose for 5 days he had surgery on 10/14/22 resumed 8 mg daily on 10/15/22 Pts INR today 2.1 Per CN instructions pt to continue his current dose and recheck on Thursday10/27/22 Libby Barkley MA documented in this encounter [facility] 10-15-2022 Miscellaneous Notes Called pt let him know the information Libby Barkley MA Yes resume previous dose recheck in [...] will be covered. Pt also was in [place] prior to his surgery and was in the [facility]. During Surgery the doctor found a tick on pt and was removed pt was instructed to watch the area. Pt doesn't have any red or raised area in the location of where the tick was. Libby Barkley MA documented in this encounter [facility] 10-14-2022 Miscellaneous Notes Last O 09/16/22 INR 10/03/22 Pharmacy calls in requesting the following refill(s): Requested Prescriptions Pending Prescriptions Disp Refills warfarin (COUMADIN) 4 mg tablet [Pharmacy Med Name: WARFARIN SODIUM 4 MG TABLET] 90 tablet 1 Sig: TAKE 1 TABLET BY MOUTH EVERY DAY DIRECTED Libby Barkley MA documented in this encounter [facility] 09-23-2022 Miscellaneous Notes Called pt left VM with results and for him to call the office back if he is interested in starting a statin Libby Barkley MA ----- Message from Ryan Edwards APRN.WAFFLE MACHINE OPERATOR sent at 09/18/2022 9:38 AM EDT ----- Cmp okay but needs to increase water intake Lipids TC and LDL bad chol both elevated. I would recommend a statin Tsh wnl CBC wnl ----- Message from Ryan Edwards APRN.WAFFLE MACHINE OPERATOR sent at 09/21/2022 8:34 PM EDT ----- Vit d wnl documented in this encounter [facility] 09-23-2022 History of Presen t illness Narrative Called pt Kevin VM with instructions on his coumadin Libby Barkley MA 8 mg daily except 5 mg on fridays. Recheck in 2 wks Pt here for his INR pts Previous INR 2.5 Pts current dose 8 mg Th Sat Sun Mon 5 mg Fri Pts INR today 2.1 Please advise of further instructions Libby Barkley MA documented in this encounter [facility] 09-18-2022 History of Presen t illness Narrative Called pt let him know the instructions Libby Barkley MA 8 mg today, 5 mg tomorrow, 8 mg Sat, thu, Thu and recheck on Pt here for his INR pts Previous INR 3.9 Pts currently held his dose for 2 days pt normally takes 8 mg daily Pts INR today 2.5 Please advise of further instructions Libby Barkley MA documented in this encounter [facility] 09-16-2022 History of Presen t illness Narrative This note was created using Netsketriter. Subjective Ru Workman is a 67 year [...] related to afib. He did go to [facility] for surgical clearance for secondary to afib. We will fax clearance to them. He reports he has stress test and ECG scheduled on Thursday. HPI: Type of Surgery: umbilical hernia Date of Surgery: 10/14/22 Surgeon: Dr Arnold Place of Surgery: [place] Functional Status of patient: Able to perform [...] 1 tablet by mouth once daily. omega 4-wsx-ccp-fish oil (FISH OIL) 100-160-1,000 mg cap Take [...] ICD10: Z13.29 - TSH BLD Ryan Edwards APRN.WAFFLE MACHINE OPERATOR Pt here for his INR pts Previous INR 3.1 Pts current Pt took 4 mg on 09/03/22 8 mg the rest of the week Pts INR today 3.9 Libby Barkley MA documented in this encounter [facility] 08-04-2022 Instructions Shan Soto MD - 08/04/2022 [...] procedure and expected outcomes. References: Keith LAWLER. [place] of Abdominal Wall Reconstruction. [place], [place]: Else[employer] Torres, 2012. Casandra PATINO, Keith LALWER. Open Ventral Hernia Repair with Component Separation. Surg Clin N Am 2013;93:111-1133. Agustin CE, Josee DP, Maricarmen THORNTON, Keith LAWLER. Abdominal Wall Reconstruction. Curr Probl Surg 2013;50:553-584. [employer]. Ventral Hernia Repair Accessed 12/05/2015. Copyright 6042-[address] [facility]. All rights reserved. documented in this encounter [facility] 08-04-2022 History of Presen t illness [...] atrial fibrillation. He recently moved here from [place] and is not established with a training executive yet. He denies any tobacco use. However [...] 1 tablet by mouth once daily. omega 3-het-csp-fish oil (FISH OIL) 100-160-1,000 mg cap Take [...] Soto M.D., F.A.C.S. documented in this encounter [facility] 08-04-2022 History of Presen t illness Narrative Pt here for his INR pts Previous INR 2.4 Pts current dose 8 mg daily Pts INR today 2.5 Instructed pt to continue current dose recheck in 1 month Libby Barkley MA documented in this encounter [facility] 07-28-2022 History of Presen t illness Narrative Patient here for INR check. Last INR 3.1 on 07/21/22. Patient took 4 mg that day then 8 mg daily. Patient denies missing any doses. Patient's INR today was 2.4. Per conversation with Ryan Edwards CNP patient informed to continue coumadin 8 mg daily and recheck in 1 week. Patient verbalized understanding. Dana Davis MA documented in this encounter [facility] 07-21-2022 History of Presen t illness Narrative Patient here for INR check. Last INR was 1.63 on 07/15/22, at that time patient was instructed to take coumadin 9 mg daily. Patient's INR today was 3.1. Per conversation with Ryan Edwards CNP patient informed to take coumadin 4 mg today then 8 mg daily and recheck in 1 week. Dana Davis MA documented in this encounter [facility] 07-16-2022 Miscellaneous Notes Patient informed and scheduled for recheck on Thursday. Dana Davis MA 9 daily and recheck on Thursday when he is back in town Received fax stating patient's INR was 1.63 on 07/15/22. Please advise. Dana Davis MA documented in this encounter [facility] 07-11-2022 History of Presen t illness Narrative [...] recheck on Thursday while he is in [place]. Written directions given to patient. Dana Davis MA documented in this encounter [facility] 07-10-2022 History of Presen t illness Narrative Pt here for his INR pts Previous INR 2.4 Pts current dose 9 mg daily Pts INR today 3.9 Per CN instruction pt to hold his coumadin today and recheck tomorrow called pt let him know the instructions Libby Barkley MA documented in this encounter [facility] 06-26-2022 History of Presen t illness Narrative ESTABLISHED PATIENT OFFICE VISIT HPI Ru Workman is a 67 year old male who presents recently moved from [place]. Ho elevated psa. Bx in 2013 neg [...] 1 tablet by mouth once daily. omega 1-hnc-yan-fish oil (FISH OIL) 100-160-1,000 mg cap Take [...] Jr, MD 06/26/2022 documented in this encounter [facility] 06-23-2022 History of Presen t illness Narrative [...] out calender with directions and voiced understanding. Elder Cordova MA documented in this encounter [facility] 06-11-2022 Miscellaneous Notes Called pt let him know the results iLbby Barkley MA ----- Message from Ryan Edwards APRN.WAFFLE MACHINE OPERATOR sent at 06/11/2022 1:01 PM EST ----- BMP and CBC unremarkable pt was non fasting documented in this encounter [facility] 06-11-2022 Instructions Ryan Edwards APRN.CNP - 06/11/2022 8:58 AM EST ASSESSMENT/PLAN: 1. [...] R97.20 - biopsy scheduled 06/18/22. Ryan Edwards APRN.WAFFLE MACHINE OPERATOR documented in this encounter [facility] 06-11-2022 History of Presen t illness Narrative This note was created using Netsketriter. Subjective Ru Workman is a 67 year [...] biopsy Date of Surgery: 06/18/22 Surgeon: Dr Llanes Place of Surgery: [place] outpatient Functional Status of patient: Able to [...] 1 tablet by mouth once daily. omega 0-zol-ovo-fish oil (FISH OIL) 100-160-1,000 mg cap Take [...] R97.20 - biopsy scheduled 06/18/22. Ryan Edwards APRN.WAFFLE MACHINE OPERATOR documented in this encounter [facility] 06-10-2022 Miscellaneous Notes Pt has apt 06/11/21 for surgical clearance Libby Barkley MA He will need to follow up with me within 30 days for presurgical evaluation if they are requiring me to sign off on him for his surgery Pt will be having a Prostate biopsy done on 06/18/22 does he need surgical clearance. He takes coumadin they did instructed him to stop his coumadin 6 days prior and then resume 2 days after. Libby Barkley MA documented in this encounter [facility] 06-09-2022 Miscellaneous Notes Last OV 02/26/22 Labs with previous PCP 12/20/21 listed in your last OV note 02/26/22 Patient phones requesting refills as follows: Requested Prescriptions Pending Prescriptions Disp Refills dilTIAZem (CARDIZEM) 120 mg tablet 90 tablet 1 Sig: Take 1 tablet by mouth once daily. Please review and advise. Libby Barkley MA documented in this encounter [facility] 06-06-2022 Miscellaneous Notes Pt is scheduled for MRI Fusion Bx MAC with Dr Llanes at [facility] on 06/18/22 @ 12:45 (10:45 arrival). Follow up with Dr Tai on 06/26/22 @ 11:00. Pt takes Coumadin- needs to stop 7 days prior, resume 2 days after biopsy. Medical clearance form faxed to pcp Ryan Edwards, f. [phone] on 06/03/22. Edel LOZA documented in this encounter [facility] 06-03-2022 Instructions Mehrdad Llanes MD - 06/03/2022 11:03 AM EST PATIENT [...] Anti-Inflammatory Drugs) Aleve (Naproxen) Fish Oil Pepto-Bismol [place] Gingko [place] Persantine (Dipyridamole) Anacin Glucosamine Chondroitin [...] obtain these medications) documented in this encounter [facility] 06-03-2022 History of Presen t illness Narrative ESTABLISHED PATIENT OFFICE VISIT PATIENT INFO: Ru Workman 67 year old HPI 06/03/2022 CC: bx Patient saw Dr. Tai as below and had MRI at [facility] showing a couple of PI-RADS 3 lesions with 99 cc prostate Did okay under local anesthetic with original biopsy but for the fusion biopsy he would like twilight New primary physician is in [place] and that is who prescribes his Coumadin for A. fib Will need clearance to be off the Coumadin pre and post procedure Denies chest pain or shortness of breath Past Urology Hx: March 27, 2022-seen by Dr. Tai- 67 year old male recently moved from [place]. Ho elevated psa. Bx in 2013 neg [...] drinks daily Drug use: Never MEDICATIONS: omega 3-kby-vbq-fish oil (FISH OIL) 100-160-1,000 mg cap Take [...] urinary obstruction - ICD9: 600.00, ICD10: N40.0 Mehrdad Llanes Please note: This note has been produced using speech recognition software and may contain errors related to that system including grammar, punctuation, spelling, gender and words and phrases that may be inappropriate. documented in this encounter [facility] 06-02-2022 Instructions Lorraine Rosa APRN.WAFFLE MACHINE OPERATOR - 06/02/2022 11:31 AM EST Shan Soto MD General Surgery [facility] [address] [place] [id number] Appointment:[phone] documented in this encounter [facility] 06-02-2022 History of Presen t illness [...] history is provided by the patient. No speech language pathology assistant was used. Abdominal Pain This is [...] Outpatient Medications Medication Sig Dispense Refill omega 5-mlw-zcr-fish oil (FISH OIL) 100-160-1,000 mg cap Take [...] management requirements were given to patient. Lorraine Roas APRN.BARBIE documented in this encounter [facility] 05-30-2022 Miscellaneous Notes Images from the original note were not included. Stan Tai Jr., MD P [facility] Exchange Clinical Pool Let pt know that mri prostate shows a couple lesions Please set up with dr. Llanes for mri fusion bx conference Patient informed and transferred to scheduling to set up appointment. Betty Hightower Ma documented in this encounter [facility] 05-28-2022 History of Presen t illness Narrative Pt here for his INR pts Previous INR 2.4 Pts current dose 9 mg daily Pts INR today 2.5 Per CN pt to continue his current dose and recheck in 1 month Libby Barkley MA documented in this encounter [facility] 05-27-2022 History of Presen t illness [...] a Angio cath: 22 gauge. RADIOLOGY DEPARTMENT: MR; Exam(s) Completed: Body: Prostate SIGNATURE: RT Estefani(R) PATIENT NAME: Ru Workman DATE: May 27, 2022 TIME: 8:55 AM documented in this encounter [facility] 05-22-2022 History of Presen t illness Narrative Images from the original note were not included. Kyrie Pardo MD Orthopedic Sports Medicine Surgery [address] [place] [address] [facility] [address] [place] [address] [place] [address] , [facility] [address], [place] [address] Orthopedic Surgery Sports Medicine Note NAME: Ru Workman : 1955 DATE: 05/22/2022 CHIEF COMPLAINT: Right elbow pain HPI: Ru Workman is a 67 year old male who presents from consultation from Ryan Edwards [facility] for a right elbow injury. 5 days [...] MEDICATIONS: Current Outpatient Medications Medication Sig omega 6-ays-jbb-fish oil (FISH OIL) 100-160-1,000 mg cap Take [...] his right elbow as his injury heals. Oyve-ibn-emkiukf Tylenol or ibuprofen as needed for pain control. He can follow-up with me on an as-needed basis if his symptoms worsen or do not improve. All of his questions were answered at today's visit. Kyrie Pardo MD 05/22/2022 3:25 PM This note was partially generated using Silk Direct system, and there may be some incorrect words, spellings, and punctuation that were not noted in checking the note before saving. documented in this encounter [facility] 05-21-2022 Miscellaneous Notes Appointment scheduled for [...] other than patient: no Best contact number: [phone] Thank you, Tabitha Sharma May 21, 2022 1:36 PM documented in this encounter [facility] 05-20-2022 Instructions Lorraine Rosa APRN.CNP - 05/20/2022 2:[address] Feng Miller Orthopaedic Surgery [facility] [address] [place] [address] D[address] Directions Appointment:[phone] documented in this encounter [facility] 05-20-2022 History of Presen t illness [...] history is provided by the patient. No speech language pathology assistant was used. PAST MEDICAL HISTORY Diagnosis [...] Outpatient Medications Medication Sig Dispense Refill omega 8-mmy-nnn-fish oil (FISH OIL) 100-160-1,000 mg cap Take [...] Lorraine Rosa APRN.CNP documented in this encounter [facility] 05-14-2022 History of Presen t illness Narrative Called pt let him know the instructions and to recheck in 2 weeks per CN Libby Barkley MA Continue 9 mg daily Patient here for INR check. Last INR was 3.9 on 05/09/22, at that time patient was instructed to hold coumadin that day then take 9 mg daily. Patient's INR today was 2.4. Patient is scheduled for recheck in 1 week. Please advise on dosing. Dana Davis MA documented in this encounter [facility] 05-09-2022 History of Presen t illness Narrative Agree with MA documentation. April Ortiz APRN.CNP Patient here for INR check. Last INR was 7.4 on 05/07 at that time patient was told to hold coumadin until today. Patient's INR today was 3.9. Per conversation with April Ortiz CNP patient informed to hold coumadin today and then take 9 mg daily and recheck next Thursday or . Patient verbalized understanding. Dana Davis MA documented in this encounter [facility] 05-07-2022 History of Presen t illness Narrative Pt here for his INR pts Previous INR 2.4 Pts current dose 10 mg daily except Thu and Thursday 9 mg Pts INR today 7.4 Per CN pt to hold his Coumadin today and tomorrow recheck on Thursday Libby Barkley MA Hold coumadin today and tomorrow. Recheck Thursday. documented in this encounter [facility] 04-07-2022 History of Presen t illness Narrative Pt here for his INR pts Previous INR 2.0 Pts current dose 9 mg Wed Sun 10 mg the rest of the week Pts INR today 2.4 Instructed pt to continue current dose recheck in 1 month Libby Barkley MA documented in this encounter [facility] 03-28-2022 History of Presen t illness Narrative Patient is here to check their INR Last INR: 2.2 Current Dose: 10 mg on Thursday, Thursday, , Thursday, and Thursday. 9 mg on Thursday and Thursday INR: 2.0 Per April Ortiz continue current dose and recheck in 2 weeks Edel Johns MA documented in this encounter [facility] 03-27-2022 History of Presen t illness Narrative NEW PATIENT HISTORY AND PHYSICAL EXAM PATIENT INFO: Ru Workman 67 year old REFERRING PROVIDER: SHARON MCKEON PCP: Ryan Edwards APRN.WAFFLE MACHINE OPERATOR HPI Ru Workman is a 67 year old male recently moved from [place]. Ho elevated psa. Bx in 2013 neg [...] UPROT, UROBIL, NITRITES, UWBC, UCOLAP MEDICATIONS: omega 8-tvw-thj-fish oil (FISH OIL) 100-160-1,000 mg cap Take [...] Tai Jr, MD documented in this encounter [facility] 03-17-2022 History of Presen t illness Narrative Patient here for INR check. Last INR was 1.9 on 03/10/22. Patient takes coumadin 9 mg on Thursday, Thursday and 10 mg all other days. Patient denies missing any doses. Patient's INR today was 2.2. Per conversation with Ryan Edwards CNP patient informed to continue current dose and recheck in 2 weeks. Dana Davis MA documented in this encounter [facility] 03-10-2022 History of Presen t illness Narrative Pt here for his INR pts Previous INR 1.8 Pts current dose 11.25 mg Thu,Thu,,Thu 7.5 the rest of the wee Pts INR today 1.9 Per Cn instructions pt to 9 mg We Sat 10 mg the rest of the week Libby Barkley MA documented in this encounter [facility] 03-06-2022 History of Presen t illness Narrative Pt notified of new orders pt to take 1.5 tab (11.25mg) today and tomorrow, 1 tab Thursday and 1.5 tab on Thursday. Recheck on Thursday. documented in this encounter [facility] 02-26-2022 History of Presen t illness Narrative This note was created using NoteWriter. Subjective Ru Workman is a 66 year [...] 01/25/2014 for elevated PSA of 5.7 in [place]. 12/20/21 PSA 10.5. Reports home BPs 120-130s/70s. He had labs completed in [place] with previous PCP on 12/20/21. CMP and CBC unremarkable. Sugar was mildly elevated at 112 HGB A1C 5.7%, Vit D normal, PSA elevated at 10.5, LIpids TC 214, LDL 139 others wnl Preventative: he is not interested in flu. He has had 2 COVID vaccine. Last colonoscopy 2016 in [place], reports one polyp. ALLERGIES Not on File [...] given to take to pharmacy Ryan Edwards APRN.WAFFLE MACHINE OPERATOR documented in this encounter [facility] Evaluation note Diagnosis Encounter for medical examination to establish care- Primary Atrial fibrillation, unspecified type (HCC) Erectile dysfunction, unspecified erectile dysfunction type Elevated PSA Elevated prostate specific antigen (PSA) Need for shingles vaccine Need for prophylactic vaccination and inoculation against other viral diseases [facility] Atrial fibrillation, unspecified type (HCC)- Primary [facility] Diagnosis Atrial fibrillation, unspecified type (HCC)- Primary [facility] Diagnosis Encounter for observation for other suspected diseases and conditions ruled out- Primary Elevated PSA Elevated prostate specific antigen (PSA) [facility] Diagnosis Atrial fibrillation, unspecified type (HCC)- Primary [facility] Diagnosis Atrial fibrillation, unspecified type (HCC)- Primary documented in this encounter [facility] note* Diagnosis Atrial fibrillation, unspecified type (HCC)- Primary documented in this encounter [facility] note* Diagnosis Atrial fibrillation, unspecified type (HCC)- Primary documented in this encounter [facility] note* Diagnosis Atrial fibrillation, unspecified type (HCC)- Primary documented in this encounter [facility] note* Diagnosis Right arm pain- Primary Pain in limb Biceps muscle tear, right, initial encounter documented in this encounter [facility] note* Diagnosis Biceps muscle strain, right, initial encounter- Primary documented in this encounter [facility] note* Diagnosis Encounter for observation for other suspected diseases and conditions ruled out documented in this encounter [facility] note* Diagnosis Atrial fibrillation, unspecified type (HCC)- Primary documented in this encounter [facility] note* Diagnosis Diastasis of rectus abdominis- Primary Umbilical hernia without obstruction or gangrene Umbilical hernia without mention of obstruction or gangrene documented in this encounter [facility] note* Diagnosis Elevated PSA- Primary Elevated prostate specific antigen (PSA) BPH without urinary obstruction Hypertrophy of prostate without urinary obstruction and other lower urinary tract symptoms (LUTS) documented in this encounter [facility] note* Diagnosis Atrial fibrillation, unspecified type (HCC) Elevated prostate specific antigen (PSA) documented in this encounter [facility] note* Diagnosis Preoperative cardiovascular examination- Primary Pre-operative cardiovascular examination Atrial fibrillation, unspecified type (HCC) Elevated PSA Elevated prostate specific antigen (PSA) Elevated prostate specific antigen (PSA) documented in this encounter [facility] note* Diagnosis Elevated prostate specific antigen (PSA)- Primary BPH with obstruction/lower urinary tract symptoms Hypertrophy of prostate with urinary obstruction and other lower urinary tract symptoms (LUTS) documented in this encounter [facility] note* Diagnosis Atrial fibrillation, unspecified type (HCC)- Primary documented in this encounter [facility] note* Diagnosis Umbilical hernia without obstruction and without gangrene- Primary Atrial fibrillation, unspecified type (HCC) documented in this encounter [facility] note* Diagnosis Umbilical hernia without obstruction or gangrene- Primary Umbilical hernia without mention of obstruction or gangrene documented in this encounter [facility] note* Diagnosis Preoperative general physical examination- Primary [...] obstruction or gangrene documented in this encounter [facility] note* Diagnosis Atrial fibrillation, unspecified type (HCC)- Primary Umbilical hernia without obstruction or gangrene Umbilical hernia without mention of obstruction or gangrene documented in this encounter [facility] note* Diagnosis Atrial fibrillation, unspecified type (HCC)- Primary Umbilical hernia without obstruction or gangrene Umbilical hernia without mention of obstruction or gangrene documented in this encounter [facility] note* Diagnosis Onset Date Resolution Status Preoperative cardiovascular examination acute Essential hypertension chron ic Paroxysmal atrial fibrillation chronic [facility] Work Phone: Evaluation note* Diagnosis Atrial fibrillation, unspecified type (HCC)- Primary documented in this encounter [facility] note* Diagnosis Atrial fibrillation, unspecified type (HCC)- Primary documented in this encounter [facility] note* Diagnosis Atrial fibrillation, unspecified type (HCC)- Primary documented in this encounter [facility] note* Diagnosis Hx of retinal detachment- Primary Personal history of other disorders of nervous system and sense organs documented in this encounter [facility] note* Diagnosis Atrial fibrillation, unspecified type (HCC) documented in this encounter [facility] note* Diagnosis Atrial fibrillation, unspecified type (HCC)- Primary documented in this encounter [facility] note* Diagnosis Atrial fibrillation, unspecified type (HCC)- Primary documented in this encounter [facility] note* Diagnosis Atrial fibrillation, unspecified type (HCC)- Primary [facility] Diagnosis Elevated cholesterol- Primary Pure hypercholesterolemia documented in this encounter [facility] note* Diagnosis Atrial fibrillation, unspecified type (HCC)- Primary documented in this encounter [facility] note* Diagnosis Acute right ankle pain- Primary Atrial fibrillation, unspecified type (HCC) documented in this encounter [facility] note* Diagnosis Erectile dysfunction, unspecified erectile dysfunction type documented in this encounter [facility] note* Diagnosis Atrial fibrillation, unspecified type (HCC)- Primary Erectile dysfunction, unspecified erectile dysfunction type Elevated prostate specific antigen (PSA) [facility] Diagnosis Injury of right Achilles tendon, initial encounter [facility] Diagnosis Injury of right Achilles tendon, initial encounter- Primary Injury of right Achilles tendon, initial encounter [facility]* Diagnosis Preoperative general physical examination- Primary Other specified pre-operative examination Acute right ankle pain Injury of right Achilles tendon, subsequent encounter Olecranon bursitis, left elbow Injury of right Achilles tendon, initial encounter [facility] Diagnosis Injury of right Achilles tendon, initial encounter- Primary Acute right ankle pain Injury of right Achilles tendon, initial encounter [facility] Diagnosis Injury of right Achilles tendon, subsequent encounter- Primary Acute right ankle pain Injury of right Achilles tendon, initial encounter [facility]* Diagnosis Elevated cholesterol- Primary Pure hypercholesterolemia documented [facility]* Diagnosis Cellulitis of left upper extremity- Primary Cellulitis and abscess of upper arm and forearm Septic bursitis of elbow, left Atrial fibrillation, unspecified type (HCC) Rupture of right Achilles tendon, initial encounter [facility]* Diagnosis Onset Date Resolution Status Fatigue acute Preoperative cardiovascular examination acute Essential hypertension chron ic Paroxysmal atrial fibrillation chronic [facility] Work Phone: Evaluation note* Diagnosis Atrial fibrillation, unspecified type (HCC)- Primary [facility]* Diagnosis Atrial fibrillation, unspecified type (HCC)- Primary [facility]* Diagnosis Rupture of right Achilles tendon, subsequent encounter- Primary [facility] Diagnosis Injury of right Achilles tendon, subsequent encounter- Primary Acute right ankle pain [facility] Diagnosis Atrial fibrillation, unspecified type (HCC)- Primary [facility]* Diagnosis Atrial fibrillation, unspecified type (HCC)- Primary [facility] Diagnosis Injury of right Achilles tendon, subsequent encounter- Primary [facility] Diagnosis Atrial fibrillation, unspecified type (HCC)- Primary [facility] Diagnosis Atrial fibrillation, unspecified type (HCC)- Primary [facility] Diagnosis Atrial fibrillation, unspecified type (HCC)- Primary [facility]* Diagnosis Injury of right Achilles tendon, subsequent encounter- Primary Difficulty walking Difficulty in walking documented [facility]* Diagnosis Injury of right Achilles tendon, subsequent encounter- Primary [facility]* Diagnosis Injury of right Achilles tendon, subsequent encounter- Primary [facility] Diagnosis Primary hypertension- Primary Unspecified essential hypertension Atrial fibrillation, unspecified type (HCC) Malignant melanoma of torso excluding breast (HCC) SHANNON (obstructive sleep apnea) Obstructive sleep apnea (adult) (pediatric) Elevated prostate specific antigen (PSA) Ganglion cyst of wrist, right [facility] Diagnosis Injury of right Achilles tendon, subsequent encounter- Primary Difficulty walking Difficulty in walking [facility] Diagnosis Injury of right Achilles tendon, subsequent encounter- Primary [facility] Diagnosis Ganglion cyst of wrist, right Ganglion cyst of wrist, right- Primary [facility] Diagnosis Ganglion cyst of wrist, right Ganglion cyst of wrist, right- Primary Primary osteoarthritis of right wrist Primary localized osteoarthrosis, forearm [facility] Diagnosis Atrial fibrillation, unspecified type (HCC)- Primary [facility] Diagnosis Primary osteoarthritis of right wrist- Primary Primary localized osteoarthrosis, forearm Ganglion cyst of wrist, right [facility]* Diagnosis Hx of retinal detachment Personal history of other disorders of nervous system and sense organs [facility] Diagnosis Myopia, bilateral- Primary Myopia Regular astigmatism of left eye Regular astigmatism Pseudophakia Lens replaced by other means [facility] Diagnosis Atrial fibrillation, unspecified type (HCC)- Primary Preop examination Preoperative examination, unspecified SHANNON (obstructive sleep apnea) Obstructive sleep apnea (adult) (pediatric) Elevated BP without diagnosis of hypertension Injury of right Achilles tendon, initial encounter [S86.001A] Atrial fibrillation, unspecified type (HCC)- Primary SHANNON (obstructive sleep apnea) Obstructive sleep apnea (adult) (pediatric) Preop examination Preoperative examination, unspecified Sepsis, due to unspecified organism, unspecified whether acute organ dysfunction present (HCC) 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 Hypertrophy of prostate with urinary obstruction and other lower urinary tract symptoms (LUTS) Elevated prostate specific antigen (PSA) 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 documented in this encounter [facility] note* Diagnosis Atrial fibrillation, unspecified type (HCC)- Primary Preop examination Preoperative examination, unspecified SHANNON (obstructive sleep apnea) Obstructive sleep apnea (adult) (pediatric) Elevated BP without diagnosis of hypertension Injury of right Achilles tendon, initial encounter [S86.001A] Atrial fibrillation, unspecified type (HCC)- Primary SHANNON (obstructive sleep apnea) Obstructive sleep apnea (adult) (pediatric) Preop examination Preoperative examination, unspecified Sepsis, due to unspecified organism, unspecified whether acute organ dysfunction present (HCC) 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] Atrial fibrillation, unspecified type (HCC)- Primary documented in this encounter [facility] note* Diagnosis Atrial fibrillation, unspecified type (HCC)- Primary Preop examination Preoperative examination, unspecified SHANNON (obstructive sleep apnea) Obstructive sleep apnea (adult) (pediatric) Elevated BP without diagnosis of hypertension Injury of right Achilles tendon, initial encounter [S86.001A] Atrial fibrillation, unspecified type (HCC)- Primary SHANNON (obstructive sleep apnea) Obstructive sleep apnea (adult) (pediatric) Preop examination Preoperative examination, unspecified Sepsis, due to unspecified organism, unspecified whether acute organ dysfunction present (HCC) 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] Atrial fibrillation, unspecified type (HCC)- Primary documented in this encounter [facility] note* Diagnosis Atrial fibrillation, unspecified type (HCC)- Primary Preop examination Preoperative examination, unspecified SHANNON (obstructive sleep apnea) Obstructive sleep apnea (adult) (pediatric) Elevated BP without diagnosis of hypertension Injury of right Achilles tendon, initial encounter [S86.001A] Atrial fibrillation, unspecified type (HCC)- Primary SHANNON (obstructive sleep apnea) Obstructive sleep apnea (adult) (pediatric) Preop examination Preoperative examination, unspecified Sepsis, due to unspecified organism, unspecified whether acute organ dysfunction present (HCC) 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] Atrial fibrillation, unspecified type (HCC)- Primary [facility]* Diagnosis Atrial fibrillation, unspecified type (HCC)- Primary Preop examination Preoperative examination, unspecified SHANNON (obstructive sleep apnea) Obstructive sleep apnea (adult) (pediatric) Elevated BP without diagnosis of hypertension Injury of right Achilles tendon, initial encounter [S86.001A] Atrial fibrillation, unspecified type (HCC)- Primary SHANNON (obstructive sleep apnea) Obstructive sleep apnea (adult) (pediatric) Preop examination Preoperative examination, unspecified Sepsis, due to unspecified organism, unspecified whether acute organ dysfunction present (HCC) 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] Erectile dysfunction, unspecified erectile dysfunction type documented in this encounter [facility] note* Diagnosis Atrial fibrillation, unspecified type (HCC)- Primary Preop examination Preoperative examination, unspecified SHANNON (obstructive sleep apnea) Obstructive sleep apnea (adult) (pediatric) Elevated BP without diagnosis of hypertension Injury of right Achilles tendon, initial encounter [S86.001A] Atrial fibrillation, unspecified type (HCC)- Primary SHANNON (obstructive sleep apnea) Obstructive sleep apnea (adult) (pediatric) Preop examination Preoperative examination, unspecified Sepsis, due to unspecified organism, unspecified whether acute organ dysfunction present (HCC) 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] Atrial fibrillation, unspecified type (HCC)- Primary [facility]* Diagnosis Atrial fibrillation, unspecified type (HCC)- Primary Preop examination Preoperative examination, unspecified SHANNON (obstructive sleep apnea) Obstructive sleep apnea (adult) (pediatric) Elevated BP without diagnosis of hypertension Injury of right Achilles tendon, initial encounter [S86.001A] Atrial fibrillation, unspecified type (HCC)- Primary SHANNON (obstructive sleep apnea) Obstructive sleep apnea (adult) (pediatric) Preop examination Preoperative examination, unspecified Sepsis, due to unspecified organism, unspecified whether acute organ dysfunction present (HCC) 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] Atrial fibrillation, unspecified type (HCC)- Primary documented in this encounter [facility] note* Diagnosis Atrial fibrillation, unspecified type (HCC)- Primary Preop examination Preoperative examination, unspecified SHANNON (obstructive sleep apnea) Obstructive sleep apnea (adult) (pediatric) Elevated BP without diagnosis of hypertension Injury of right Achilles tendon, initial encounter [S86.001A] Atrial fibrillation, unspecified type (HCC)- Primary SHANNON (obstructive sleep apnea) Obstructive sleep apnea (adult) (pediatric) Preop examination Preoperative examination, unspecified Sepsis, due to unspecified organism, unspecified whether acute organ dysfunction present (HCC) 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] Hemorrhoids, unspecified hemorrhoid type- Primary [facility]* Diagnosis Atrial fibrillation, unspecified type (HCC)- Primary Preop examination Preoperative examination, unspecified SHANNON (obstructive sleep apnea) Obstructive sleep apnea (adult) (pediatric) Elevated BP without diagnosis of hypertension Injury of right Achilles tendon, initial encounter [S86.001A] Atrial fibrillation, unspecified type (HCC)- Primary SHANNON (obstructive sleep apnea) Obstructive sleep apnea (adult) (pediatric) Preop examination Preoperative examination, unspecified Sepsis, due to unspecified organism, unspecified whether acute organ dysfunction present (HCC) 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] Atrial fibrillation, unspecified type (HCC)- Primary [facility] Diagnosis Atrial fibrillation, unspecified type (HCC)- Primary Preop examination Preoperative examination, unspecified SHANNON (obstructive sleep apnea) Obstructive sleep apnea (adult) (pediatric) Elevated BP without diagnosis of hypertension Injury of right Achilles tendon, initial encounter [S86.001A] Atrial fibrillation, unspecified type (HCC)- Primary SHANNON (obstructive sleep apnea) Obstructive sleep apnea (adult) (pediatric) Preop examination Preoperative examination, unspecified Sepsis, due to unspecified organism, unspecified whether acute organ dysfunction present (HCC) 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] Pain of left thumb- Primary Pain in limb documented in this encounter [facility] note* Diagnosis Atrial fibrillation, unspecified type (HCC)- Primary Preop examination Preoperative examination, unspecified SHANNON (obstructive sleep apnea) Obstructive sleep apnea (adult) (pediatric) Elevated BP without diagnosis of hypertension Injury of right Achilles tendon, initial encounter [S86.001A] Atrial fibrillation, unspecified type (HCC)- Primary SHANNON (obstructive sleep apnea) Obstructive sleep apnea (adult) (pediatric) Preop examination Preoperative examination, unspecified Sepsis, due to unspecified organism, unspecified whether acute organ dysfunction present (HCC) 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] Atrial fibrillation, unspecified type (HCC)- Primary Elevated prostate specific antigen (PSA) Primary hypertension Unspecified essential hypertension Screening for deficiency anemia Screening for other and unspecified deficiency anemia Encounter for screening for diabetes mellitus Screening for diabetes mellitus Screening for lipid disorders Screening for thyroid disorder Screening for malignant neoplasm of prostate documented in this encounter [facility] note* Diagnosis Atrial fibrillation, unspecified type (HCC)- Primary Preop examination Preoperative examination, unspecified SHANNON (obstructive sleep apnea) Obstructive sleep apnea (adult) (pediatric) Elevated BP without diagnosis of hypertension Injury of right Achilles tendon, initial encounter [S86.001A] Atrial fibrillation, unspecified type (HCC)- Primary SHANNON (obstructive sleep apnea) Obstructive sleep apnea (adult) (pediatric) Preop examination Preoperative examination, unspecified Sepsis, due to unspecified organism, unspecified whether acute organ dysfunction present (HCC) 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] Left hand pain- Primary Pain in limb Pain of left thumb Pain in limb Rupture of extensor tendon of finger Crepitant synovitis of wrist, left documented in this encounter [facility] note* Diagnosis Atrial fibrillation, unspecified type (HCC)- Primary Preop examination Preoperative examination, unspecified SHANNON (obstructive sleep apnea) Obstructive sleep apnea (adult) (pediatric) Elevated BP without diagnosis of hypertension Injury of right Achilles tendon, initial encounter [S86.001A] Atrial fibrillation, unspecified type (HCC)- Primary SHANNON (obstructive sleep apnea) Obstructive sleep apnea (adult) (pediatric) Preop examination Preoperative examination, unspecified Sepsis, due to unspecified organism, unspecified whether acute organ dysfunction present (HCC) 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] Left hand pain Pain in limb documented in this encounter [facility] note* Diagnosis Atrial fibrillation, unspecified type (HCC)- Primary Preop examination Preoperative examination, unspecified SHANNON (obstructive sleep apnea) Obstructive sleep apnea (adult) (pediatric) Elevated BP without diagnosis of hypertension Injury of right Achilles tendon, initial encounter [S86.001A] Atrial fibrillation, unspecified type (HCC)- Primary SHANNON (obstructive sleep apnea) Obstructive sleep apnea (adult) (pediatric) Preop examination Preoperative examination, unspecified Sepsis, due to unspecified organism, unspecified whether acute organ dysfunction present (HCC) 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] Atrial fibrillation, unspecified type (HCC)- Primary [facility] Atrial fibrillation, unspecified type (HCC)- Primary Preop examination Preoperative examination, unspecified SHANNON (obstructive sleep apnea) Obstructive sleep apnea (adult) (pediatric) Elevated BP without diagnosis of hypertension Injury of right Achilles tendon, initial encounter [S86.001A] Atrial fibrillation, unspecified type (HCC)- Primary SHANNON (obstructive sleep apnea) Obstructive sleep apnea (adult) (pediatric) Preop examination Preoperative examination, unspecified Sepsis, due to unspecified organism, unspecified whether acute organ dysfunction present (HCC) 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] Left hand pain- Primary Pain in limb Left hand pain Pain in limb [facility] Diagnosis Atrial fibrillation, unspecified type (HCC)- Primary Preop examination Preoperative examination, unspecified SHANNON (obstructive sleep apnea) Obstructive sleep apnea (adult) (pediatric) Elevated BP without diagnosis of hypertension Injury of right Achilles tendon, initial encounter [S86.001A] Atrial fibrillation, unspecified type (HCC)- Primary SHANNON (obstructive sleep apnea) Obstructive sleep apnea (adult) (pediatric) Preop examination Preoperative examination, unspecified Sepsis, due to unspecified organism, unspecified whether acute organ dysfunction present (HCC) 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] Left hand pain Pain in limb Rupture of extensor tendon of finger [facility] Diagnosis Atrial fibrillation, unspecified type (HCC)- Primary Preop examination Preoperative examination, unspecified SHANNON (obstructive sleep apnea) Obstructive sleep apnea (adult) (pediatric) Elevated BP without diagnosis of hypertension Injury of right Achilles tendon, initial encounter [S86.001A] Atrial fibrillation, unspecified type (HCC)- Primary SHANNON (obstructive sleep apnea) Obstructive sleep apnea (adult) (pediatric) Preop examination Preoperative examination, unspecified Sepsis, due to unspecified organism, unspecified whether acute organ dysfunction present (HCC) 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] Hearing loss, unspecified hearing loss type, unspecified laterality- Primary Impacted cerumen of both ears Impacted cerumen [facility] Diagnosis Atrial fibrillation, unspecified type (HCC)- Primary Preop examination Preoperative examination, unspecified SHANNON (obstructive sleep apnea) Obstructive sleep apnea (adult) (pediatric) Elevated BP without diagnosis of hypertension Injury of right Achilles tendon, initial encounter [S86.001A] Atrial fibrillation, unspecified type (HCC)- Primary SHANNON (obstructive sleep apnea) Obstructive sleep apnea (adult) (pediatric) Preop examination Preoperative examination, unspecified Sepsis, due to unspecified organism, unspecified whether acute organ dysfunction present (HCC) 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] Postoperative state- Primary Other postprocedural status Rupture of extensor tendon of finger [facility] Diagnosis Atrial fibrillation, unspecified type (HCC)- Primary Preop examination Preoperative examination, unspecified SHANNON (obstructive sleep apnea) Obstructive sleep apnea (adult) (pediatric) Elevated BP without diagnosis of hypertension Injury of right Achilles tendon, initial encounter [S86.001A] Atrial fibrillation, unspecified type (HCC)- Primary SHANNON (obstructive sleep apnea) Obstructive sleep apnea (adult) (pediatric) Preop examination Preoperative examination, unspecified Sepsis, due to unspecified organism, unspecified whether acute organ dysfunction present (HCC) 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] Rupture of extensor tendon of finger- Primary Left hand pain Pain in limb [facility] Diagnosis Atrial fibrillation, unspecified type (HCC)- Primary Preop examination Preoperative examination, unspecified SHANNON (obstructive sleep apnea) Obstructive sleep apnea (adult) (pediatric) Elevated BP without diagnosis of hypertension Injury of right Achilles tendon, initial encounter [S86.001A] Atrial fibrillation, unspecified type (HCC)- Primary SHANNON (obstructive sleep apnea) Obstructive sleep apnea (adult) (pediatric) Preop examination Preoperative examination, unspecified Sepsis, due to unspecified organism, unspecified whether acute organ dysfunction present (HCC) 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] Tinnitus of both ears- Primary Unspecified tinnitus Hearing loss of both ears due to cerumen impaction [facility] Diagnosis Atrial fibrillation, unspecified type (HCC)- Primary Preop examination Preoperative examination, unspecified SHANNON (obstructive sleep apnea) Obstructive sleep apnea (adult) (pediatric) Elevated BP without diagnosis of hypertension Injury of right Achilles tendon, initial encounter [S86.001A] Atrial fibrillation, unspecified type (HCC)- Primary SHANNON (obstructive sleep apnea) Obstructive sleep apnea (adult) (pediatric) Preop examination Preoperative examination, unspecified Sepsis, due to unspecified organism, unspecified whether acute organ dysfunction present (HCC) 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] Tinnitus of both ears- Primary Unspecified tinnitus Sensorineural hearing loss, asymmetrical documented in this encounter [facility] note* Diagnosis Atrial fibrillation, unspecified type (HCC)- Primary Preop examination Preoperative examination, unspecified SHANNON (obstructive sleep apnea) Obstructive sleep apnea (adult) (pediatric) Elevated BP without diagnosis of hypertension Injury of right Achilles tendon, initial encounter [S86.001A] Atrial fibrillation, unspecified type (HCC)- Primary SHANNON (obstructive sleep apnea) Obstructive sleep apnea (adult) (pediatric) Preop examination Preoperative examination, unspecified Sepsis, due to unspecified organism, unspecified whether acute organ dysfunction present (HCC) 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] Atrial fibrillation, unspecified type (HCC)- Primary documented in this encounter [facility] note* Diagnosis Atrial fibrillation, unspecified type (HCC)- Primary Preop examination Preoperative examination, unspecified SHANNON (obstructive sleep apnea) Obstructive sleep apnea (adult) (pediatric) Elevated BP without diagnosis of hypertension Injury of right Achilles tendon, initial encounter [S86.001A] Atrial fibrillation, unspecified type (HCC)- Primary SHANNON (obstructive sleep apnea) Obstructive sleep apnea (adult) (pediatric) Preop examination Preoperative examination, unspecified Sepsis, due to unspecified organism, unspecified whether acute organ dysfunction present (HCC) 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] Postoperative state- Primary Other postprocedural status Rupture of extensor tendon of finger documented in this encounter [facility] note* Diagnosis Atrial fibrillation, unspecified type (HCC)- Primary Preop examination Preoperative examination, unspecified SHANNON (obstructive sleep apnea) Obstructive sleep apnea (adult) (pediatric) Elevated BP without diagnosis of hypertension Injury of right Achilles tendon, initial encounter [S86.001A] Atrial fibrillation, unspecified type (HCC)- Primary SHANNON (obstructive sleep apnea) Obstructive sleep apnea (adult) (pediatric) Preop examination Preoperative examination, unspecified Sepsis, due to unspecified organism, unspecified whether acute organ dysfunction present (HCC) 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] Atrial fibrillation, unspecified type (HCC)- Primary documented in this encounter [facility] note* Diagnosis Atrial fibrillation, unspecified type (HCC)- Primary Preop examination Preoperative examination, unspecified SHANNON (obstructive sleep apnea) Obstructive sleep apnea (adult) (pediatric) Elevated BP without diagnosis of hypertension Injury of right Achilles tendon, initial encounter [S86.001A] Atrial fibrillation, unspecified type (HCC)- Primary SHANNON (obstructive sleep apnea) Obstructive sleep apnea (adult) (pediatric) Preop examination Preoperative examination, unspecified Sepsis, due to unspecified organism, unspecified whether acute organ dysfunction present (HCC) 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] Rupture of extensor tendon of finger- Primary Left hand pain Pain in limb [facility] Diagnosis Atrial fibrillation, unspecified type (HCC)- Primary Preop examination Preoperative examination, unspecified SHANNON (obstructive sleep apnea) Obstructive sleep apnea (adult) (pediatric) Elevated BP without diagnosis of hypertension Injury of right Achilles tendon, initial encounter [S86.001A] Atrial fibrillation, unspecified type (HCC)- Primary SHANNON (obstructive sleep apnea) Obstructive sleep apnea (adult) (pediatric) Preop examination Preoperative examination, unspecified Sepsis, due to unspecified organism, unspecified whether acute organ dysfunction present (HCC) 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] Rupture of extensor tendon of finger- Primary Decreased range of motion of left thumb [facility] this [facility] Diagnosis Atrial fibrillation, unspecified type (HCC)- Primary Preop examination Preoperative examination, unspecified SHANNON (obstructive sleep apnea) Obstructive sleep apnea (adult) (pediatric) Elevated BP without diagnosis of hypertension Injury of right Achilles tendon, initial encounter [S86.001A] Atrial fibrillation, unspecified type (HCC)- Primary SHANNON (obstructive sleep apnea) Obstructive sleep apnea (adult) (pediatric) Preop examination Preoperative examination, unspecified Sepsis, due to unspecified organism, unspecified whether acute organ dysfunction present (HCC) 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] Atrial fibrillation, unspecified type (HCC)- Primary [facility]* Diagnosis Onset Date Resolution Status Admit Date Fatigue acute November 11 10:30am SVT (supraventricular tachycardia) acute November 11, 2024 10:30am Essential hypertension chronic Ju ne 2024 10:30am Paroxysmal atrial fibrillation chron ic November 11, 2024 10:30am [facility] Work Phone: Reason for referral (narrative)* Diagnostic Procedure Only (Routine) - Pending Review Specialty Diagnoses / Procedures Referred By Contac t Referred To Contact XR IMAGING Diagnoses Biceps muscle strain, right, initial encounter Procedures XR ELBOW GENERAL 2V AP/LAT RIGHT RADEX ELBOW 2 VIEWS Kyrie Pardo MD [address] [address] Xr Imaging Referral ID Status Reason Start Date Expiration Date Visits Requested Visits Authorized [id number] Pending Review Auto-Generat ed Referral 05/22/2022 06/21/2023 1 1 [facility] for referral (narrative)* Diagnostic Procedure Only (Routine) - Closed Specialty Diagnoses / Procedures Referred By Contac t Referred To Contact XR IMAGING Diagnoses Acute right ankle pain Procedures XR ANKLE 2V AP/LAT RIGHT RADIOLOGIC EXAMINATION ANKLE 2 VIEWS Ryan Edwards APRN.WAFFLE MACHINE OPERATOR [address] [place] [address] [place] [address] Referral ID Status Reason Start Date Expiration Date V isits Requested Visits Authorized [id number] Closed Auto-Generate d Referral 02/10/2023 03/11/2024 1 1 * Transition of Care (Routine) - Ref Not Required Specialty Diagnoses / Procedures Referred By Contac t Referred To Contact Podiatry Diagnoses Acute right ankle pain Procedures CONSULT TO PODIATRY Ryan Edwards APRN.WAFFLE MACHINE OPERATOR [address] [place] [address] Stan Elizabeth [address] [place] [address] Referral ID Status Reason Start Date Expiration Date Visits Requested Visits Authorized [id number] Ref Not Required PCP Requested Referral 02/10/2023 05/11/2023 3 3 [facility] for referral (narrative)* Diagnostic Procedure Only (Routine) - Closed Specialty Diagnoses / Procedures Referred By Contac t Referred To Contact XR IMAGING Diagnoses Ganglion cyst of wrist, right Procedures XR WRIST GENERAL 3V PA/LAT/OBL RIGHT RADEX WRIST COMPLETE MINIMUM 3 VIEWS Pancho Pino MD [address] [place] [address] [place] [address] Referral ID Status Reason Start Date Expiration Date V isits Requested Visits Authorized [id number] Closed Auto-Generate d Referral 09/24/2023 10/23/2024 1 1 [facility] for referral (narrative)* Diagnostic Procedure Only (Routine) - Closed Specialty Diagnoses / Procedures Referred By Nai t Referred To Contact XR IMAGING Diagnoses Ganglion cyst of wrist, right Procedures XR WRIST GENERAL 3V PA/LAT/OBL RIGHT RADEX WRIST COMPLETE MINIMUM 3 VIEWS Pancho Pino MD [address] [place] [address] [place] [address] Referral ID Status Reason Start Date Expiration Date V isits Requested Visits Authorized [id number] Closed Auto-Generate d Referral 09/24/2023 10/23/2024 1 1 [facility] for referral (narrative)* Consult, Test, Treat (Routine) - New Request Specialty Diagnoses / Procedures Referred By Contac t Referred To Contact Procedures HEARING TEST/AUDIOGRAM COMPRE AUDIOMETRY THRESHOLD EVAL SP RECOGNIJ Ezio Richardson, AUD [address] [place] [address] Phone: tel: fax: [facility] [address] [place], [place] [id number] Referral ID Status Reason Start Date Expiration Date Visits Requested Visits Authorized [id number] New Request Auto-Generat ed Referral 09/19/2024 09/20/2025 1 1 [facility]No [facility] for [facility] Work Phone: Reason for visit Narrative* Diagnostic Procedure Only (Routine) - Closed Specialty Diagnoses / Procedures Referred By Nai t Referred To Contact XR IMAGING Diagnoses Ganglion cyst of wrist, right Procedures XR WRIST GENERAL 3V PA/LAT/OBL RIGHT RADEX WRIST COMPLETE MINIMUM 3 VIEWS Pancho Pino MD [address] [place] [address] [place] [address] Referral ID Status Reason Start Date Expiration Date V isits Requested Visits Authorized [id number] Closed Auto-Generate d Referral 09/24/2023 10/23/2024 1 1 [facility] Diagnostic Procedure Only (Routine) - Closed Specialty Diagnoses / Procedures Referred By Nai castro Referred To Contact XR IMAGING Diagnoses Left hand pain Procedures XR HAND GENERAL 3V PA/LAT/OBL LEFT RADEX HAND MINIMUM 3 VIEWS Pancho Pino MD [address] [place] [address] Phone: tel: fax: [place] [address] Referral ID Status Reason Start Date Expiration Date V isits Requested Visits Authorized [id number] Closed Auto-Generate d Referral 08/26/2024 09/24/2025 1 1 [facility] Summary Purpose Family History Relationship Condition Age at Onset Recorded Date/T behzad father Cardiac disease Unknown Malignant neoplasm Unknown Diabetes mellitus Unknown sister Hypertension Unknown Advance Directives Documents on File Type Date Recorded 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 Advance Directive(s) 10/22/2022 11:02 AM Date Activated Date Inactivated Comments 11/05/2024 6:53 PM 11/06/2024 3:25 PM Question Answer Comments DNR Order Discussed With: Patient Advance Directive Response Recorded Date/ Time Living Will No January 17 11:13am Power of Manager Sales No January 17, 2021 11:13am Documents on File Type Date Recorded 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 Advance Directive(s) 10/22/2022 11:02 AM Advance Directive Response Recorded Date/ Time Living Will No January 17 10:13am Power of Manager Sales No January 17, 2021 10:13am Reason for Referral Specialty Diagnoses / Procedures Referred By Contac t Referred To Contact Diagnoses Atrial fibrillation, unspecified type (HCC) Procedures CONSULT TO CARDIOLOGY OFFICE/OUTPATIENT [facility] 60-74 MINUTES Ryan Edwards, NON DESTRUCTIVE TESTING ENGINEER.WAFFLE MACHINE OPERATOR [address] [place] [address] Group, [facility] [address] [place] [address] Referral ID Status Reason Start Date Expiration Date Visits Requested Visits Authorized [id number] Authorized PCP Requested Referral 2 02/26/2023 1 1 Specialty Diagnoses / Procedures Referred By Contac t Referred To Contact Urology / [facility] Department Diagnoses Elevated PSA Procedures CONSULT TO UROLOGY OFFICE/OUTPATIENT [facility] 60-74 MINUTES Ryan Edwards, NON DESTRUCTIVE TESTING ENGINEER.WAFFLE MACHINE OPERATOR [address] [place] [address] Stan Tai Jr., MD [address] [place] [address] Referral ID Status Reason Start Date Expiration Date Visits Requested Visits Authorized [id number] Authorized PCP Requested Referral 2 02/26/2023 1 1 Specialty Diagnoses / Procedures Referred By Contac t Referred To Contact MR IMAGING Diagnoses Encounter for observation for other suspected diseases and conditions ruled out Procedures MRI PROSTATE WO/W IVCON MRI PELVIS W/O & W/CONTRAST MATERIAL Stan Tai Jr., MD [address] [place] [address] Mr Imaging Referral ID Status Reason Start Date Expiration Date Visits Requested Visits Authorized [id number] Authorized Auto-Generat ed Referral 2 04/26/2023 1 1 Specialty Diagnoses / Procedures Referred By Contac t Referred To Contact [facility] Diagnoses Biceps muscle tear, right, initial encounter Right arm pain Procedures CONSULT TO PHYSICAL THERAPY PHYSICAL THERAPY EVALUATION HIGH COMPLEX 45 MINS Lorraine Rosa, NON DESTRUCTIVE TESTING ENGINEER.WAFFLE MACHINE OPERATOR [address] [place] [address] [facility] [address] [place] [address] Referral ID Status Reason Start Date Expiration Date Visits Requested Visits Authorized [id number] Authorized PCP Requested Referral Auto-Generate d Referral 05/20/2022 05/20/2023 99 99 Specialty Diagnoses / Procedures Referred By Contac t Referred To Contact Orthopedics / [facility] Department Diagnoses Biceps muscle tear, right, initial encounter Right arm pain Procedures CONSULT TO ORTHOPAEDIC SURGERY OFFICE/OUTPATIENT [facility] 60-74 MINUTES Lorraine Rosa, NON DESTRUCTIVE TESTING ENGINEER.WAFFLE MACHINE OPERATOR [address] [place] [address] Feng Miller MD [address] [place] [address] Referral ID Status Reason Start Date Expiration Date Visits Requested Visits Authorized [id number] Authorized PCP Requested Referral 05/20/2022 05/20/2023 1 1 Referral ID Status Reason Start Date Expiration Date V isits Requested Visits Authorized [id number] Closed Auto-Generate d Referral 03/27/2022 04/26/2023 1 1 Specialty Diagnoses / Procedures Referred By Contac t Referred To Contact General Surgery Diagnoses Diastasis of rectus abdominis Umbilical hernia without obstruction or gangrene Procedures CONSULT TO GENERAL SURGERY OFFICE/OUTPATIENT [facility] 60-74 MINUTES Lorraine Rosa, NON DESTRUCTIVE TESTING ENGINEER.WAFFLE MACHINE OPERATOR [address] [place] [address] Shan Soto MD [address] [place] [address] Referral ID Status Reason Start Date Expiration Date Visits Requested Visits Authorized [id number] Authorized PCP Requested Referral 06/02/2022 06/02/2023 1 1 Specialty Diagnoses / Procedures Referred By Contac t Referred To Contact Cardiology Diagnoses Atrial fibrillation, unspecified type (HCC) Procedures CONSULT TO CARDIOLOGY OFFICE/OUTPATIENT [facility] 60-74 MINUTES Shan Soto MD [address] [place] [address] rTung Rey MD [address] [place] [address] Referral ID Status Reason Start Date Expiration Date Visits Requested Visits Authorized [id number] Authorized PCP Requested Referral 08/04/2022 11/02/2022 1 1 Specialty Diagnoses / Procedures Referred By Contac t Referred To Contact MR IMAGING Diagnoses Injury of right Achilles tendon, initial encounter Procedures MRI ANKLE WO IVCON RIGHT MRI ANY JT LOWER EXTREM W/O CONTRAST MATRL Rickey Woodruff DPM [address] [place] [address] [place] [address] Referral ID Status Reason Start Date Expiration Date V isits Requested Visits Authorized [id number] Closed Auto-Generate d Referral 04/02/2023 05/01/2024 1 1 Specialty Diagnoses / Procedures Referred By Contac t Referred To Contact Orthopedics / [facility] DEPARTMENT Diagnoses Olecranon bursitis, left elbow Procedures CONSULT TO ORTHOPAEDICS OFFICE/OUTPATIENT [facility] MDM 60-74 MINUTES Ryan Edwards, NON DESTRUCTIVE TESTING ENGINEER.WAFFLE MACHINE OPERATOR [address] [place] [address] Kyrie Peterson MD [address] [address] Referral ID Status Reason Start Date Expiration Date Visits Requested Visits Authorized [id number] Authorized PCP Requested Referral 04/15/2024 1 1 Specialty Diagnoses / Procedures Referred By Contac t Referred To Contact PHYSICAL THERAPY Diagnoses Injury of right Achilles tendon, subsequent encounter Procedures CONSULT TO PHYSICAL THERAPY PHYSICAL THERAPY EVALUATION HIGH COMPLEX 45 MINS Rickey Woodruff DPM [address] [address] Mike Peacock, PT [address] [place] [address] Referral ID Status Reason Start Date Expiration Date Visits Requested Visits Authorized [id number] Authorized PCP Requested Referral Auto-Generate d Referral 08/06/2023 05/17/2024 99 99 Specialty Diagnoses / Procedures Referred By Contadia t Referred To Contact Orthopedics / [facility] DEPARTMENT Diagnoses Ganglion cyst of wrist, right Procedures CONSULT TO ORTHOPAEDICS OFFICE/OUTPATIENT [facility] 60 MINUTES Ryan Edwards, NON DESTRUCTIVE TESTING ENGINEER.WAFFLE MACHINE OPERATOR [address] [place] [address] Pancho Pino MD [address] [address] Referral ID Status Reason Start Date Expiration Date Visits Requested Visits Authorized [id number] Authorized PCP Requested Referral 09/14/2023 09/13/2024 1 1 Chief Complaint and Reason for Visit Chief Complaint Amb Documentation HX AFIB, HERNIA CLEAR. A-FIB/FLUTTER A-FIB/FLUTTER Reason for Visit Preoperative cardiov ascular examination Essential hypertension Paroxysmal atrial fibrillation Chief Complaint Amb Documentation SURGICAL CLEARANCE Reason for Visit Fatigue Preoperative cardiovascular examination Essential hypertension Paroxysmal atrial fibrillation Chief Complaint Admit Date S/P ([facility] 11/06) November 11, 2024 10:3 0am Reason for Visit Admit Date Fatigue November 11, 2024 10:3 0am SVT (supraventricular tachycardia) November 11, 2024 10:30am Essential hypertension November 11, 2024 1 0:30am Paroxysmal atrial fibrillation October 10:30am Health Concerns Infection Onset Date Last Indicated Resolved Time C. difficile 05/19/2023 06/11/2023 Infection Onset Date Last Indicated Resolved Time C. difficile 05/19/2023 06/11/2023 07/11/2023 8:52 PM EST Additional Source Comments (unrecognized sect ion and content) No Status Records FoundNo Status Records FoundNo Status Records FoundNo Status Records FoundNo Status Records Found INFORMATION SOURCE (unrecogn ized section and content) DATE CREATED AUTHOR 02/18/2022 [facility] DATE CREATED AUTHOR AUTHOR'S ORGANIZ ATION 09/26/2022 [facility] DATE CREATED AUTHOR AUTHOR'S ORGANIZ ATION 09/22/2024 [facility] DATE CREATED AUTHOR AUTHOR'S ORGANIZ ATION 11/07/2024 [facility] DATE CREATED AUTHOR AUTHOR'S ORGANIZ ATION 11/09/2024 [facility] Source Comments (unrecognize d section and content) In the event this informatio n is protected by the Federal Confidentiality of Alcohol and Drug Abuse Patient Records regulations: The Federal rules restrict any use of the information to criminally investigate or prosecute any alcohol or drug abuse patient.[facility] the event this information is protected by the Federal Confidentiality of Alcohol and Drug Abuse Patient Records regulations: The Federal rules restrict any use of the information to criminally investigate or prosecute any alcohol or drug abuse patient.[facility]In the event this information is protected by the Federal Confidentiality of Alcohol and Drug Abuse Patient Records regulations: The Federal rules restrict any use of the information to criminally investigate or prosecute any alcohol or drug abuse patient.[facility]In the event this information is protected by the Federal Confidentiality of Alcohol and Drug Abuse Patient Records regulations: The Federal rules restrict any use of the information to criminally investigate or prosecute any alcohol or drug abuse patient.[facility]In the event this information is protected by the Federal Confidentiality of Alcohol and Drug Abuse Patient Records regulations: The Federal rules restrict any use of the information to criminally investigate or prosecute any alcohol or drug abuse patient.[facility]In the event this information is protected by the Federal Confidentiality of Alcohol and Drug Abuse Patient Records regulations: The Federal rules restrict any use of the information to criminally investigate or prosecute any alcohol or drug abuse patient.[facility]In the event this information is protected by the Federal Confidentiality of Alcohol and Drug Abuse Patient Records regulations: The Federal rules restrict any use of the information to criminally investigate or prosecute any alcohol or drug abuse patient.[facility]In the event this information is protected by the Federal Confidentiality of Alcohol and Drug Abuse Patient Records regulations: The Federal rules restrict any use of the information to criminally investigate or prosecute any alcohol or drug abuse patient.[facility]In the event this information is protected by the Federal Confidentiality of Alcohol and Drug Abuse Patient Records regulations: The Federal rules restrict any use of the information to criminally investigate or prosecute any alcohol or drug abuse patient.[facility]In the event this information is protected by the Federal Confidentiality of Alcohol and Drug Abuse Patient Records regulations: The Federal rules restrict any use of the information to criminally investigate or prosecute any alcohol or drug abuse patient.[facility]In the event this information is protected by the Federal Confidentiality of Alcohol and Drug Abuse Patient Records regulations: The Federal rules restrict any use of the information to criminally investigate or prosecute any alcohol or drug abuse patient.[facility]In the event this information is protected by the Federal Confidentiality of Alcohol and Drug Abuse Patient Records regulations: The Federal rules restrict any use of the information to criminally investigate or prosecute any alcohol or drug abuse patient.[facility]In the event this information is protected by the Federal Confidentiality of Alcohol and Drug Abuse Patient Records regulations: The Federal rules restrict any use of the information to criminally investigate or prosecute any alcohol or drug abuse patient.[facility]In the event this information is protected by the Federal Confidentiality of Alcohol and Drug Abuse Patient Records regulations: The Federal rules restrict any use of the information to criminally investigate or prosecute any alcohol or drug abuse patient.[facility]In the event this information is protected by the Federal Confidentiality of Alcohol and Drug Abuse Patient Records regulations: The Federal rules restrict any use of the information to criminally investigate or prosecute any alcohol or drug abuse patient.[facility] HospitalIn the event this information is protected by the Federal Confidentiality of Alcohol and Drug Abuse Patient Records regulations: The Federal rules restrict any use of the information to criminally investigate or prosecute any alcohol or drug abuse patient.[facility]In the event this information is protected by the Federal Confidentiality of Alcohol and Drug Abuse Patient Records regulations: The Federal rules restrict any use of the information to criminally investigate or prosecute any alcohol or drug abuse patient.[facility]In the event this information is protected by the Federal Confidentiality of Alcohol and Drug Abuse Patient Records regulations: The Federal rules restrict any use of the information to criminally investigate or prosecute any alcohol or drug abuse patient.[facility]In the event this information is protected by the Federal Confidentiality of Alcohol and Drug Abuse Patient Records regulations: The Federal rules restrict any use of the information to criminally investigate or prosecute any alcohol or drug abuse patient.[facility]In the event this information is protected by the Federal Confidentiality of Alcohol and Drug Abuse Patient Records regulations: The Federal rules restrict any use of the information to criminally investigate or prosecute any alcohol or drug abuse patient.[facility] HospitalIn the event this information is protected by the Federal Confidentiality of Alcohol and Drug Abuse Patient Records regulations: The Federal rules restrict any use of the information to criminally investigate or prosecute any alcohol or drug abuse patient.[facility]In the event this information is protected by the Federal Confidentiality of Alcohol and Drug Abuse Patient Records regulations: The Federal rules restrict any use of the information to criminally investigate or prosecute any alcohol or drug abuse patient.[facility] HospitalIn the event this information is protected by the Federal Confidentiality of Alcohol and Drug Abuse Patient Records regulations: The Federal rules restrict any use of the information to criminally investigate or prosecute any alcohol or drug abuse patient.[facility]In the event this information is protected by the Federal Confidentiality of Alcohol and Drug Abuse Patient Records regulations: The Federal rules restrict any use of the information to criminally investigate or prosecute any alcohol or drug abuse patient.[facility]In the event this information is protected by the Federal Confidentiality of Alcohol and Drug Abuse Patient Records regulations: The Federal rules restrict any use of the information to criminally investigate or prosecute any alcohol or drug abuse patient.[facility]In the event this information is protected by the Federal Confidentiality of Alcohol and Drug Abuse Patient Records regulations: The Federal rules restrict any use of the information to criminally investigate or prosecute any alcohol or drug abuse patient.[facility]In the event this information is protected by the Federal Confidentiality of Alcohol and Drug Abuse Patient Records regulations: The Federal rules restrict any use of the information to criminally investigate or prosecute any alcohol or drug abuse patient.[facility]In the event this information is protected by the Federal Confidentiality of Alcohol and Drug Abuse Patient Records regulations: The Federal rules restrict any use of the information to criminally investigate or prosecute any alcohol or drug abuse patient.[facility]In the event this information is protected by the Federal Confidentiality of Alcohol and Drug Abuse Patient Records regulations: The Federal rules restrict any use of the information to criminally investigate or prosecute any alcohol or drug abuse patient.[facility]In the event this information is protected by the Federal Confidentiality of Alcohol and Drug Abuse Patient Records regulations: The Federal rules restrict any use of the information to criminally investigate or prosecute any alcohol or drug abuse patient.[facility]In the event this information is protected by the Federal Confidentiality of Alcohol and Drug Abuse Patient Records regulations: The Federal rules restrict any use of the information to criminally investigate or prosecute any alcohol or drug abuse patient.[facility]In the event this information is protected by the Federal Confidentiality of Alcohol and Drug Abuse Patient Records regulations: The Federal rules restrict any use of the information to criminally investigate or prosecute any alcohol or drug abuse patient.[facility]In the event this information is protected by the Federal Confidentiality of Alcohol and Drug Abuse Patient Records regulations: The Federal rules restrict any use of the information to criminally investigate or prosecute any alcohol or drug abuse patient.[facility]In the event this information is protected by the Federal Confidentiality of Alcohol and Drug Abuse Patient Records regulations: The Federal rules restrict any use of the information to criminally investigate or prosecute any alcohol or drug abuse patient.[facility]In the event this information is protected by the Federal Confidentiality of Alcohol and Drug Abuse Patient Records regulations: The Federal rules restrict any use of the information to criminally investigate or prosecute any alcohol or drug abuse patient.[facility]In the event this information is protected by the Federal Confidentiality of Alcohol and Drug Abuse Patient Records regulations: The Federal rules restrict any use of the information to criminally investigate or prosecute any alcohol or drug abuse patient.[facility]In the event this information is protected by the Federal Confidentiality of Alcohol and Drug Abuse Patient Records regulations: The Federal rules restrict any use of the information to criminally investigate or prosecute any alcohol or drug abuse patient.[facility]In the event this information is protected by the Federal Confidentiality of Alcohol and Drug Abuse Patient Records regulations: The Federal rules restrict any use of the information to criminally investigate or prosecute any alcohol or drug abuse patient.[facility]In the event this information is protected by the Federal Confidentiality of Alcohol and Drug Abuse Patient Records regulations: The Federal rules restrict any use of the information to criminally investigate or prosecute any alcohol or drug abuse patient.[facility]In the event this information is protected by the Federal Confidentiality of Alcohol and Drug Abuse Patient Records regulations: The Federal rules restrict any use of the information to criminally investigate or prosecute any alcohol or drug abuse patient.[facility]In the event this information is protected by the Federal Confidentiality of Alcohol and Drug Abuse Patient Records regulations: The Federal rules restrict any use of the information to criminally investigate or prosecute any alcohol or drug abuse patient.[facility]In the event this information is protected by the Federal Confidentiality of Alcohol and Drug Abuse Patient Records regulations: The Federal rules restrict any use of the information to criminally investigate or prosecute any alcohol or drug abuse patient.[facility]In the event this information is protected by the Federal Confidentiality of Alcohol and Drug Abuse Patient Records regulations: The Federal rules restrict any use of the information to criminally investigate or prosecute any alcohol or drug abuse patient.[facility]In the event this information is protected by the Federal Confidentiality of Alcohol and Drug Abuse Patient Records regulations: The Federal rules restrict any use of the information to criminally investigate or prosecute any alcohol or drug abuse patient.[facility]In the event this information is protected by the Federal Confidentiality of Alcohol and Drug Abuse Patient Records regulations: The Federal rules restrict any use of the information to criminally investigate or prosecute any alcohol or drug abuse patient.[facility]In the event this information is protected by the Federal Confidentiality of Alcohol and Drug Abuse Patient Records regulations: The Federal rules restrict any use of the information to criminally investigate or prosecute any alcohol or drug abuse patient.[facility]In the event this information is protected by the Federal Confidentiality of Alcohol and Drug Abuse Patient Records regulations: The Federal rules restrict any use of the information to criminally investigate or prosecute any alcohol or drug abuse patient.[facility] HospitalIn the event this information is protected by the Federal Confidentiality of Alcohol and Drug Abuse Patient Records regulations: The Federal rules restrict any use of the information to criminally investigate or prosecute any alcohol or drug abuse patient.[facility]In the event this information is protected by the Federal Confidentiality of Alcohol and Drug Abuse Patient Records regulations: The Federal rules restrict any use of the information to criminally investigate or prosecute any alcohol or drug abuse patient.[facility]In the event this information is protected by the Federal Confidentiality of Alcohol and Drug Abuse Patient Records regulations: The Federal rules restrict any use of the information to criminally investigate or prosecute any alcohol or drug abuse patient.[facility]In the event this information is protected by the Federal Confidentiality of Alcohol and Drug Abuse Patient Records regulations: The Federal rules restrict any use of the information to criminally investigate or prosecute any alcohol or drug abuse patient.[facility]In the event this information is protected by the Federal Confidentiality of Alcohol and Drug Abuse Patient Records regulations: The Federal rules restrict any use of the information to criminally investigate or prosecute any alcohol or drug abuse patient.[facility]In the event this information is protected by the Federal Confidentiality of Alcohol and Drug Abuse Patient Records regulations: The Federal rules restrict any use of the information to criminally investigate or prosecute any alcohol or drug abuse patient.[facility]In the event this information is protected by the Federal Confidentiality of Alcohol and Drug Abuse Patient Records regulations: The Federal rules restrict any use of the information to criminally investigate or prosecute any alcohol or drug abuse patient.[facility]In the event this information is protected by the Federal Confidentiality of Alcohol and Drug Abuse Patient Records regulations: The Federal rules restrict any use of the information to criminally investigate or prosecute any alcohol or drug abuse patient.[facility]In the event this information is protected by the Federal Confidentiality of Alcohol and Drug Abuse Patient Records regulations: The Federal rules restrict any use of the information to criminally investigate or prosecute any alcohol or drug abuse patient.[facility]In the event this information is protected by the Federal Confidentiality of Alcohol and Drug Abuse Patient Records regulations: The Federal rules restrict any use of the information to criminally investigate or prosecute any alcohol or drug abuse patient.[facility]In the event this information is protected by the Federal Confidentiality of Alcohol and Drug Abuse Patient Records regulations: The Federal rules restrict any use of the information to criminally investigate or prosecute any alcohol or drug abuse patient.[facility]In the event this information is protected by the Federal Confidentiality of Alcohol and Drug Abuse Patient Records regulations: The Federal rules restrict any use of the information to criminally investigate or prosecute any alcohol or drug abuse patient.[facility]In the event this information is protected by the Federal Confidentiality of Alcohol and Drug Abuse Patient Records regulations: The Federal rules restrict any use of the information to criminally investigate or prosecute any alcohol or drug abuse patient.[facility]In the event this information is protected by the Federal Confidentiality of Alcohol and Drug Abuse Patient Records regulations: The Federal rules restrict any use of the information to criminally investigate or prosecute any alcohol or drug abuse patient.[facility]In the event this information is protected by the Federal Confidentiality of Alcohol and Drug Abuse Patient Records regulations: The Federal rules restrict any use of the information to criminally investigate or prosecute any alcohol or drug abuse patient.[facility]In the event this information is protected by the Federal Confidentiality of Alcohol and Drug Abuse Patient Records regulations: The Federal rules restrict any use of the information to criminally investigate or prosecute any alcohol or drug abuse patient.[facility]In the event this information is protected by the Federal Confidentiality of Alcohol and Drug Abuse Patient Records regulations: The Federal rules restrict any use of the information to criminally investigate or prosecute any alcohol or drug abuse patient.[facility]In the event this information is protected by the Federal Confidentiality of Alcohol and Drug Abuse Patient Records regulations: The Federal rules restrict any use of the information to criminally investigate or prosecute any alcohol or drug abuse patient.[facility]In the event this information is protected by the Federal Confidentiality of Alcohol and Drug Abuse Patient Records regulations: The Federal rules restrict any use of the information to criminally investigate or prosecute any alcohol or drug abuse patient.[facility]In the event this information is protected by the Federal Confidentiality of Alcohol and Drug Abuse Patient Records regulations: The Federal rules restrict any use of the information to criminally investigate or prosecute any alcohol or drug abuse patient.[facility]In the event this information is protected by the Federal Confidentiality of Alcohol and Drug Abuse Patient Records regulations: The Federal rules restrict any use of the information to criminally investigate or prosecute any alcohol or drug abuse patient.[facility]In the event this information is protected by the Federal Confidentiality of Alcohol and Drug Abuse Patient Records regulations: The Federal rules restrict any use of the information to criminally investigate or prosecute any alcohol or drug abuse patient.[facility]In the event this information is protected by the Federal Confidentiality of Alcohol and Drug Abuse Patient Records regulations: The Federal rules restrict any use of the information to criminally investigate or prosecute any alcohol or drug abuse patient.[facility] HospitalIn the event this information is protected by the Federal Confidentiality of Alcohol and Drug Abuse Patient Records regulations: The Federal rules restrict any use of the information to criminally investigate or prosecute any alcohol or drug abuse patient.[facility]In the event this information is protected by the Federal Confidentiality of Alcohol and Drug Abuse Patient Records regulations: The Federal rules restrict any use of the information to criminally investigate or prosecute any alcohol or drug abuse patient.[facility]In the event this information is protected by the Federal Confidentiality of Alcohol and Drug Abuse Patient Records regulations: The Federal rules restrict any use of the information to criminally investigate or prosecute any alcohol or drug abuse patient.[facility]In the event this information is protected by the Federal Confidentiality of Alcohol and Drug Abuse Patient Records regulations: The Federal rules restrict any use of the information to criminally investigate or prosecute any alcohol or drug abuse patient.[facility]In the event this information is protected by the Federal Confidentiality of Alcohol and Drug Abuse Patient Records regulations: The Federal rules restrict any use of the information to criminally investigate or prosecute any alcohol or drug abuse patient.[facility]In the event this information is protected by the Federal Confidentiality of Alcohol and Drug Abuse Patient Records regulations: The Federal rules restrict any use of the information to criminally investigate or prosecute any alcohol or drug abuse patient.[facility]In the event this information is protected by the Federal Confidentiality of Alcohol and Drug Abuse Patient Records regulations: The Federal rules restrict any use of the information to criminally investigate or prosecute any alcohol or drug abuse patient.[facility]In the event this information is protected by the Federal Confidentiality of Alcohol and Drug Abuse Patient Records regulations: The Federal rules restrict any use of the information to criminally investigate or prosecute any alcohol or drug abuse patient.[facility]In the event this information is protected by the Federal Confidentiality of Alcohol and Drug Abuse Patient Records regulations: The Federal rules restrict any use of the information to criminally investigate or prosecute any alcohol or drug abuse patient.[facility]In the event this information is protected by the Federal Confidentiality of Alcohol and Drug Abuse Patient Records regulations: The Federal rules restrict any use of the information to criminally investigate or prosecute any alcohol or drug abuse patient.[facility]In the event this information is protected by the Federal Confidentiality of Alcohol and Drug Abuse Patient Records regulations: The Federal rules restrict any use of the information to criminally investigate or prosecute any alcohol or drug abuse patient.[facility] HospitalIn the event this information is protected by the Federal Confidentiality of Alcohol and Drug Abuse Patient Records regulations: The Federal rules restrict any use of the information to criminally investigate or prosecute any alcohol or drug abuse patient.[facility] HospitalIn the event this information is protected by the Federal Confidentiality of Alcohol and Drug Abuse Patient Records regulations: The Federal rules restrict any use of the information to criminally investigate or prosecute any alcohol or drug abuse patient.[facility] HospitalIn the event this information is protected by the Federal Confidentiality of Alcohol and Drug Abuse Patient Records regulations: The Federal rules restrict any use of the information to criminally investigate or prosecute any alcohol or drug abuse patient.[facility] HospitalIn the event this information is protected by the Federal Confidentiality of Alcohol and Drug Abuse Patient Records regulations: The Federal rules restrict any use of the information to criminally investigate or prosecute any alcohol or drug abuse patient.[facility] HospitalIn the event this information is protected by the Federal Confidentiality of Alcohol and Drug Abuse Patient Records regulations: The Federal rules restrict any use of the information to criminally investigate or prosecute any alcohol or drug abuse patient.[facility] HospitalIn the event this information is protected by the Federal Confidentiality of Alcohol and Drug Abuse Patient Records regulations: The Federal rules restrict any use of the information to criminally investigate or prosecute any alcohol or drug abuse patient.[facility]In the event this information is protected by the Federal Confidentiality of Alcohol and Drug Abuse Patient Records regulations: The Federal rules restrict any use of the information to criminally investigate or prosecute any alcohol or drug abuse patient.[facility] HospitalIn the event this information is protected by the Federal Confidentiality of Alcohol and Drug Abuse Patient Records regulations: The Federal rules restrict any use of the information to criminally investigate or prosecute any alcohol or drug abuse patient.[facility] HospitalIn the event this information is protected by the Federal Confidentiality of Alcohol and Drug Abuse Patient Records regulations: The Federal rules restrict any use of the information to criminally investigate or prosecute any alcohol or drug abuse patient.[facility] HospitalIn the event this information is protected by the Federal Confidentiality of Alcohol and Drug Abuse Patient Records regulations: The Federal rules restrict any use of the information to criminally investigate or prosecute any alcohol or drug abuse patient.[facility] HospitalIn the event this information is protected by the Federal Confidentiality of Alcohol and Drug Abuse Patient Records regulations: The Federal rules restrict any use of the information to criminally investigate or prosecute any alcohol or drug abuse patient.[facility] HospitalIn the event this information is protected by the Federal Confidentiality of Alcohol and Drug Abuse Patient Records regulations: The Federal rules restrict any use of the information to criminally investigate or prosecute any alcohol or drug abuse patient.[facility] HospitalIn the event this information is protected by the Federal Confidentiality of Alcohol and Drug Abuse Patient Records regulations: The Federal rules restrict any use of the information to criminally investigate or prosecute any alcohol or drug abuse patient.[facility] HospitalIn the event this information is protected by the Federal Confidentiality of Alcohol and Drug Abuse Patient Records regulations: The Federal rules restrict any use of the information to criminally investigate or prosecute any alcohol or drug abuse patient.[facility] HospitalIn the event this information is protected by the Federal Confidentiality of Alcohol and Drug Abuse Patient Records regulations: The Federal rules restrict any use of the information to criminally investigate or prosecute any alcohol or drug abuse patient.[facility] HospitalIn the event this information is protected by the Federal Confidentiality of Alcohol and Drug Abuse Patient Records regulations: The Federal rules restrict any use of the information to criminally investigate or prosecute any alcohol or drug abuse patient.[facility] HospitalIn the event this information is protected by the Federal Confidentiality of Alcohol and Drug Abuse Patient Records regulations: The Federal rules restrict any use of the information to criminally investigate or prosecute any alcohol or drug abuse patient.[facility] HospitalIn the event this information is protected by the Federal Confidentiality of Alcohol and Drug Abuse Patient Records regulations: The Federal rules restrict any use of the information to criminally investigate or prosecute any alcohol or drug abuse patient.[facility] HospitalIn the event this information is protected by the Federal Confidentiality of Alcohol and Drug Abuse Patient Records regulations: The Federal rules restrict any use of the information to criminally investigate or prosecute any alcohol or drug abuse patient.[facility] HospitalIn the event this information is protected by the Federal Confidentiality of Alcohol and Drug Abuse Patient Records regulations: The Federal rules restrict any use of the information to criminally investigate or prosecute any alcohol or drug abuse patient.[facility] HospitalIn the event this information is protected by the Federal Confidentiality of Alcohol and Drug Abuse Patient Records regulations: The Federal rules restrict any use of the information to criminally investigate or prosecute any alcohol or drug abuse patient.[facility] HospitalIn the event this information is protected by the Federal Confidentiality of Alcohol and Drug Abuse Patient Records regulations: The Federal rules restrict any use of the information to criminally investigate or prosecute any alcohol or drug abuse patient.[facility] HospitalIn the event this information is protected by the Federal Confidentiality of Alcohol and Drug Abuse Patient Records regulations: The Federal rules restrict any use of the information to criminally investigate or prosecute any alcohol or drug abuse patient.[facility] HospitalIn the event this information is protected by the Federal Confidentiality of Alcohol and Drug Abuse Patient Records regulations: The Federal rules restrict any use of the information to criminally investigate or prosecute any alcohol or drug abuse patient.[facility] HospitalIn the event this information is protected by the Federal Confidentiality of Alcohol and Drug Abuse Patient Records regulations: The Federal rules restrict any use of the information to criminally investigate or prosecute any alcohol or drug abuse patient.[facility] HospitalIn the event this information is protected by the Federal Confidentiality of Alcohol and Drug Abuse Patient Records regulations: The Federal rules restrict any use of the information to criminally investigate or prosecute any alcohol or drug abuse patient.[facility] HospitalIn the event this information is protected by the Federal Confidentiality of Alcohol and Drug Abuse Patient Records regulations: The Federal rules restrict any use of the information to criminally investigate or prosecute any alcohol or drug abuse patient.[facility] HospitalIn the event this information is protected by the Federal Confidentiality of Alcohol and Drug Abuse Patient Records regulations: The Federal rules restrict any use of the information to criminally investigate or prosecute any alcohol or drug abuse patient.[facility] HospitalIn the event this information is protected by the Federal Confidentiality of Alcohol and Drug Abuse Patient Records regulations: The Federal rules restrict any use of the information to criminally investigate or prosecute any alcohol or drug abuse patient.[facility] HospitalIn the event this information is protected by the Federal Confidentiality of Alcohol and Drug Abuse Patient Records regulations: The Federal rules restrict any use of the information to criminally investigate or prosecute any alcohol or drug abuse patient.[facility] HospitalIn the event this information is protected by the Federal Confidentiality of Alcohol and Drug Abuse Patient Records regulations: The Federal rules restrict any use of the information to criminally investigate or prosecute any alcohol or drug abuse patient.[facility] HospitalIn the event this information is protected by the Federal Confidentiality of Alcohol and Drug Abuse Patient Records regulations: The Federal rules restrict any use of the information to criminally investigate or prosecute any alcohol or drug abuse patient.[facility] HospitalIn the event this information is protected by the Federal Confidentiality of Alcohol and Drug Abuse Patient Records regulations: The Federal rules restrict any use of the information to criminally investigate or prosecute any alcohol or drug abuse patient.[facility] HospitalIn the event this information is protected by the Federal Confidentiality of Alcohol and Drug Abuse Patient Records regulations: The Federal rules restrict any use of the information to criminally investigate or prosecute any alcohol or drug abuse patient.[facility] HospitalIn the event this information is protected by the Federal Confidentiality of Alcohol and Drug Abuse Patient Records regulations: The Federal rules restrict any use of the information to criminally investigate or prosecute any alcohol or drug abuse patient.[facility] HospitalIn the event this information is protected by the Federal Confidentiality of Alcohol and Drug Abuse Patient Records regulations: The Federal rules restrict any use of the information to criminally investigate or prosecute any alcohol or drug abuse patient.[facility] HospitalIn the event this information is protected by the Federal Confidentiality of Alcohol and Drug Abuse Patient Records regulations: The Federal rules restrict any use of the information to criminally investigate or prosecute any alcohol or drug abuse patient.[facility]In the event this information is protected by the Federal Confidentiality of Alcohol and Drug Abuse Patient Records regulations: The Federal rules restrict any use of the information to criminally investigate or prosecute any alcohol or drug abuse patient.[facility] HospitalIn the event this information is protected by the Federal Confidentiality of Alcohol and Drug Abuse Patient Records regulations: The Federal rules restrict any use of the information to criminally investigate or prosecute any alcohol or drug abuse patient.[facility] HospitalIn the event this information is protected by the Federal Confidentiality of Alcohol and Drug Abuse Patient Records regulations: The Federal rules restrict any use of the information to criminally investigate or prosecute any alcohol or drug abuse patient.[facility] HospitalIn the event this information is protected by the Federal Confidentiality of Alcohol and Drug Abuse Patient Records regulations: The Federal rules restrict any use of the information to criminally investigate or prosecute any alcohol or drug abuse patient.[facility] HospitalIn the event this information is protected by the Federal Confidentiality of Alcohol and Drug Abuse Patient Records regulations: The Federal rules restrict any use of the information to criminally investigate or prosecute any alcohol or drug abuse patient.[facility] HospitalIn the event this information is protected by the Federal Confidentiality of Alcohol and Drug Abuse Patient Records regulations: The Federal rules restrict any use of the information to criminally investigate or prosecute any alcohol or drug abuse patient.[facility] HospitalIn the event this information is protected by the Federal Confidentiality of Alcohol and Drug Abuse Patient Records regulations: The Federal rules restrict any use of the information to criminally investigate or prosecute any alcohol or drug abuse patient.[facility]In the event this information is protected by the Federal Confidentiality of Alcohol and Drug Abuse Patient Records regulations: The Federal rules restrict any use of the information to criminally investigate or prosecute any alcohol or drug abuse patient.[facility] HospitalIn the event this information is protected by the Federal Confidentiality of Alcohol and Drug Abuse Patient Records regulations: The Federal rules restrict any use of the information to criminally investigate or prosecute any alcohol or drug abuse patient.[facility]In the event this information is protected by the Federal Confidentiality of Alcohol and Drug Abuse Patient Records regulations: The Federal rules restrict any use of the information to criminally investigate or prosecute any alcohol or drug abuse patient.[facility] HospitalIn the event this information is protected by the Federal Confidentiality of Alcohol and Drug Abuse Patient Records regulations: The Federal rules restrict any use of the information to criminally investigate or prosecute any alcohol or drug abuse patient.[facility]In the event this information is protected by the Federal Confidentiality of Alcohol and Drug Abuse Patient Records regulations: The Federal rules restrict any use of the information to criminally investigate or prosecute any alcohol or drug abuse patient.[facility]In the event this information is protected by the Federal Confidentiality of Alcohol and Drug Abuse Patient Records regulations: The Federal rules restrict any use of the information to criminally investigate or prosecute any alcohol or drug abuse patient.[facility]In the event this information is protected by the Federal Confidentiality of Alcohol and Drug Abuse Patient Records regulations: The Federal rules restrict any use of the information to criminally investigate or prosecute any alcohol or drug abuse patient.[facility]In the event this information is protected by the Federal Confidentiality of Alcohol and Drug Abuse Patient Records regulations: The Federal rules restrict any use of the information to criminally investigate or prosecute any alcohol or drug abuse patient.[facility]In the event this information is protected by the Federal Confidentiality of Alcohol and Drug Abuse Patient Records regulations: The Federal rules restrict any use of the information to criminally investigate or prosecute any alcohol or drug abuse patient.[facility]In the event this information is protected by the Federal Confidentiality of Alcohol and Drug Abuse Patient Records regulations: The Federal rules restrict any use of the information to criminally investigate or prosecute any alcohol or drug abuse patient.[facility]In the event this information is protected by the Federal Confidentiality of Alcohol and Drug Abuse Patient Records regulations: The Federal rules restrict any use of the information to criminally investigate or prosecute any alcohol or drug abuse patient.[facility] HospitalIn the event this information is protected by the Federal Confidentiality of Alcohol and Drug Abuse Patient Records regulations: The Federal rules restrict any use of the information to criminally investigate or prosecute any alcohol or drug abuse patient.[facility]In the event this information is protected by the Federal Confidentiality of Alcohol and Drug Abuse Patient Records regulations: The Federal rules restrict any use of the information to criminally investigate or prosecute any alcohol or drug abuse patient.[facility]In the event this information is protected by the Federal Confidentiality of Alcohol and Drug Abuse Patient Records regulations: The Federal rules restrict any use of the information to criminally investigate or prosecute any alcohol or drug abuse patient.[facility]In the event this information is protected by the Federal Confidentiality of Alcohol and Drug Abuse Patient Records regulations: The Federal rules restrict any use of the information to criminally investigate or prosecute any alcohol or drug abuse patient.[facility]In the event this information is protected by the Federal Confidentiality of Alcohol and Drug Abuse Patient Records regulations: The Federal rules restrict any use of the information to criminally investigate or prosecute any alcohol or drug abuse patient.[facility]In the event this information is protected by the Federal Confidentiality of Alcohol and Drug Abuse Patient Records regulations: The Federal rules restrict any use of the information to criminally investigate or prosecute any alcohol or drug abuse patient.[facility]In the event this information is protected by the Federal Confidentiality of Alcohol and Drug Abuse Patient Records regulations: The Federal rules restrict any use of the information to criminally investigate or prosecute any alcohol or drug abuse patient.[facility]In the event this information is protected by the Federal Confidentiality of Alcohol and Drug Abuse Patient Records regulations: The Federal rules restrict any use of the information to criminally investigate or prosecute any alcohol or drug abuse patient.[facility]In the event this information is protected by the Federal Confidentiality of Alcohol and Drug Abuse Patient Records regulations: The Federal rules restrict any use of the information to criminally investigate or prosecute any alcohol or drug abuse patient.[facility]In the event this information is protected by the Federal Confidentiality of Alcohol and Drug Abuse Patient Records regulations: The Federal rules restrict any use of the information to criminally investigate or prosecute any alcohol or drug abuse patient.[facility]In the event this information is protected by the Federal Confidentiality of Alcohol and Drug Abuse Patient Records regulations: The Federal rules restrict any use of the information to criminally investigate or prosecute any alcohol or drug abuse patient.[facility]In the event this information is protected by the Federal Confidentiality of Alcohol and Drug Abuse Patient Records regulations: The Federal rules restrict any use of the information to criminally investigate or prosecute any alcohol or drug abuse patient.[facility]In the event this information is protected by the Federal Confidentiality of Alcohol and Drug Abuse Patient Records regulations: The Federal rules restrict any use of the information to criminally investigate or prosecute any alcohol or drug abuse patient.[facility]In the event this information is protected by the Federal Confidentiality of Alcohol and Drug Abuse Patient Records regulations: The Federal rules restrict any use of the information to criminally investigate or prosecute any alcohol or drug abuse patient.[facility]In the event this information is protected by the Federal Confidentiality of Alcohol and Drug Abuse Patient Records regulations: The Federal rules restrict any use of the information to criminally investigate or prosecute any alcohol or drug abuse patient.[facility] Care Teams (unrecognized sec tion and content) Pick [employer]vel Worker Relationship Specialty Start Date End Date Pcp, Lakeshia PCP - General 11/30/21 06/17/22 [employer] And Sho[employer] Worker Relationship Specialty Start Date End Date Ryan Edwards, NON DESTRUCTIVE TESTING ENGINEER.WAFFLE MACHINE OPERATOR [address] [place] [place] [address] PCP - General Internal Medicine 03/03/22 Pick And Shovel Worker Relationship Specialty Start Date End Date Ryan Edwards, NON DESTRUCTIVE TESTING ENGINEER.WAFFLE MACHINE OPERATOR [address] [place] [address] PCP - General Internal Medicine 03/03/22 Pick And Shovel Worker Relationship Specialty Start Date End Date Ryan Edwards, NON DESTRUCTIVE TESTING ENGINEER.WAFFLE MACHINE OPERATOR [address] [place] [address] PCP - General Internal Medicine 03/03/22 Pick And Shovel Worker Relationship Specialty Start Date End Date Ryan Edwards, NON DESTRUCTIVE TESTING ENGINEER.WAFFLE MACHINE OPERATOR [address] [place] [address] PCP - General Internal Medicine 03/03/22 Pick And Shovel Worker Relationship Specialty Start Date End Date Ryan Edwards, NON DESTRUCTIVE TESTING ENGINEER.WAFFLE MACHINE OPERATOR [address] [facility] [place] [address] PCP - General Internal Medicine 03/03/22 Pick And Shovel Worker Relationship Specialty Start Date End Date Ryan Edwards, NON DESTRUCTIVE TESTING ENGINEER.WAFFLE MACHINE OPERATOR [address] [place] [place] [address] PCP - General Internal Medicine 03/03/22 Pick And Shovel Worker Relationship Specialty Start Date End Date Ryan Edwards, NON DESTRUCTIVE TESTING ENGINEER.WAFFLE MACHINE OPERATOR [address] [place] [address] PCP - General Internal Medicine 03/03/22 Pick And Shovel Worker Relationship Specialty Start Date End Date Ryan Edwards, NON DESTRUCTIVE TESTING ENGINEER.WAFFLE MACHINE OPERATOR [address] [place] [address] PCP - General Internal Medicine 03/03/22 Pick And Shovel Worker Relationship Specialty Start Date End Date Ryan Edwards, NON DESTRUCTIVE TESTING ENGINEER.WAFFLE MACHINE OPERATOR [address] [place] [address] PCP - General Internal Medicine 03/03/22 Pick And Shovel Worker Relationship Specialty Start Date End Date Ryan Edwards, NON DESTRUCTIVE TESTING ENGINEER.WAFFLE MACHINE OPERATOR [address] [place] [address] PCP - General Internal Medicine 03/03/22 Pick And Shovel Worker Relationship Specialty Start Date End Date Ryan Edwards, NON DESTRUCTIVE TESTING ENGINEER.WAFFLE MACHINE OPERATOR [address] [place] [address] PCP - General Internal Medicine 03/03/22 Pick And Shovel Worker Relationship Specialty Start Date End Date Ryan Edwards, NON DESTRUCTIVE TESTING ENGINEER.WAFFLE MACHINE OPERATOR [address] [place] [address] PCP - General Internal Medicine 03/03/22 Pick And Shovel Worker Relationship Specialty Start Date End Date Ryan Edwards, NON DESTRUCTIVE TESTING ENGINEER.WAFFLE MACHINE OPERATOR [address] [place] [address] PCP - General Internal Medicine 03/03/22 Pick And Shovel Worker Relationship Specialty Start Date End Date Ryan Edwards, NON DESTRUCTIVE TESTING ENGINEER.WAFFLE MACHINE OPERATOR [address] [place] [address] PCP - General Internal Medicine 03/03/22 Pick And Shovel Worker Relationship Specialty Start Date End Date Ryan Edwards, NON DESTRUCTIVE TESTING ENGINEER.WAFFLE MACHINE OPERATOR [address] [facility] [place] [address] PCP - General Internal Medicine 03/03/22 Pick And Shovel Worker Relationship Specialty Start Date End Date Ryan Edwards, NON DESTRUCTIVE TESTING ENGINEER.WAFFLE MACHINE OPERATOR [address] [place] [address] PCP - General Internal Medicine 03/03/22 Pick And Shovel Worker Relationship Specialty Start Date End Date Ryan Edwards, NON DESTRUCTIVE TESTING ENGINEER.WAFFLE MACHINE OPERATOR [address] [facility] [place] [address] PCP - General Internal Medicine 03/03/22 Pick And Shovel Worker Relationship Specialty Start Date End Date Ryan Edwards, NON DESTRUCTIVE TESTING ENGINEER.WAFFLE MACHINE OPERATOR [address] [place] [address] PCP - General Internal Medicine 03/03/22 Pick And Shovel Worker Relationship Specialty Start Date End Date Ryan Edwards, NON DESTRUCTIVE TESTING ENGINEER.WAFFLE MACHINE OPERATOR [address] [place] [place] [address] PCP - General Internal Medicine 03/03/22 Pick And Shovel Worker Relationship Specialty Start Date End Date Ryan Edwards, NON DESTRUCTIVE TESTING ENGINEER.WAFFLE MACHINE OPERATOR [address] [place] [place] [address] PCP - General Internal Medicine 03/03/22 Group, [facility] [address] [place] [address] Cardiology 09/09/22 Pick And Shovel Worker Relationship Specialty Start Date End Date Ryan Edwards, NON DESTRUCTIVE TESTING ENGINEER.WAFFLE MACHINE OPERATOR [address] [facility] [place] [id number] PCP - General Internal Medicine 03/03/22 Group, [facility] [address] [place] [address] Cardiology 09/09/22 Pick And Shovel Worker Relationship Specialty Start Date End Date Ryan Edwards, NON DESTRUCTIVE TESTING ENGINEER.WAFFLE MACHINE OPERATOR [address] [place], [place] [id number] PCP - General Internal Medicine 03/03/22 Group, [facility] [address] [place] [address] Cardiology 09/09/22 Pick And Shovel Worker Relationship Specialty Start Date End Date Ryan Edwards, NON DESTRUCTIVE TESTING ENGINEER.WAFFLE MACHINE OPERATOR [address] [place] [address] PCP - General Internal Medicine 03/03/22 Group, [facility] [address] [place] [address] Cardiology 09/09/22 Team Status: Active Member Role Status Dates Ryan Edwards TESTING LEAD, TESTING LEAD-C Primary Care Provider Active Team Status: Inactive Member Role Status Dates No Primary Care Physician Primary Care Provider, Refer ring Provider Active Dr. Enid Sparrow MD Attending Provider Active Team Status: Active Member Role Status Dates No Primary Care Physician Primary Care Provider Active Courtney Mackenzie Attending Provider Active Team Status: Active Member Role Status Dates Dr. Enid Sparrow MD Attending Provider , Referring Provider, Other Provider Active Ryan Edwards TESTING LEAD, TESTING LEAD-C Primary Care Provider Active Team Status: Inactive Member Role Status Dates Dr. nEid Sparrow MD Attending Provider, Referring Pr ovider Active Ryan Edwards TESTING LEAD, TESTING LEAD-C Primary Care Provider Active Pick And Shovel Worker Relationship Specialty Start Date End Date Ryan Edwards, NON DESTRUCTIVE TESTING ENGINEER.WAFFLE MACHINE OPERATOR [address] [place], [place] [id number] PCP - General Internal Medicine 03/03/22 Group, [facility] [address] [place] [address] Cardiology 09/09/22 Pick And Shovel Worker Relationship Specialty Start Date End Date Ryan Edwards, NON DESTRUCTIVE TESTING ENGINEER.WAFFLE MACHINE OPERATOR [address] [facility] [facility] [place] [address] PCP - General Internal Medicine 03/03/22 Group, [facility] [address] [place] [address] Cardiology 09/09/22 Pick And Shovel Worker Relationship Specialty Start Date End Date Ryan Edwards, NON DESTRUCTIVE TESTING ENGINEER.WAFFLE MACHINE OPERATOR [address] [facility] [place] [address] PCP - General Internal Medicine 03/03/22 Group, [facility] [address] [place] [address] Cardiology 09/09/22 Pick And Shovel Worker Relationship Specialty Start Date End Date Ryan Edwards NON DESTRUCTIVE TESTING ENGINEER.WAFFLE MACHINE OPERATOR [address] [facility] [place] [address] PCP - General Internal Medicine 03/03/22 Group, [facility] [address] [place] [address] Cardiology 09/09/22 Pick And Shovel Worker Relationship Specialty Start Date End Date Ryan Edwards, NON DESTRUCTIVE TESTING ENGINEER.WAFFLE MACHINE OPERATOR [address] [place] [address] PCP - General Internal Medicine 03/03/22 Group, [facility] [address] [place] [address] Cardiology 09/09/22 Pick And Shovel Worker Relationship Specialty Start Date End Date Ryan Edwards, NON DESTRUCTIVE TESTING ENGINEER.WAFFLE MACHINE OPERATOR [address] [place] [address] PCP - General Internal Medicine 03/03/22 Group, [facility] [address] [place] [address] Cardiology 09/09/22 Pick And Shovel Worker Relationship Specialty Start Date End Date Ryan Edwards, NON DESTRUCTIVE TESTING ENGINEER.WAFFLE MACHINE OPERATOR [address] [place] [address] PCP - General Internal Medicine 03/03/22 Group, [facility] [address] [place] [address] Cardiology 09/09/22 Pick And Shovel Worker Relationship Specialty Start Date End Date Ryan Edwards, NON DESTRUCTIVE TESTING ENGINEER.WAFFLE MACHINE OPERATOR [address] [place] [address] PCP - General Internal Medicine 03/03/22 Group, [facility] [address] [place] [address] Cardiology 09/09/22 Pick And Shovel Worker Relationship Specialty Start Date End Date Ryan Edwards, NON DESTRUCTIVE TESTING ENGINEER.WAFFLE MACHINE OPERATOR [address] [place] [address] PCP - General Internal Medicine 03/03/22 Group, [facility] [address] [place] [address] Cardiology 09/09/22 Pick And Shovel Worker Relationship Specialty Start Date End Date Ryan Edwards, NON DESTRUCTIVE TESTING ENGINEER.WAFFLE MACHINE OPERATOR [address] [place] [address] PCP - General Internal Medicine 03/03/22 Group, [facility] [address] [place] [address] Cardiology 09/09/22 Pick And Shovel Worker Relationship Specialty Start Date End Date Ryan Edwards, NON DESTRUCTIVE TESTING ENGINEER.WAFFLE MACHINE OPERATOR [address] [place] [address] PCP - General Internal Medicine 03/03/22 Group, [facility] [address] [place] [address] Cardiology 09/09/22 Pick And Shovel Worker Relationship Specialty Start Date End Date Ryan Edwards, NON DESTRUCTIVE TESTING ENGINEER.WAFFLE MACHINE OPERATOR [address] [place] [address] PCP - General Internal Medicine 03/03/22 Group, [facility] [address] [place] [address] Cardiology 09/09/22 Pick And Shovel Worker Relationship Specialty Start Date End Date Ryan Edwards, NON DESTRUCTIVE TESTING ENGINEER.WAFFLE MACHINE OPERATOR [address] [place] [address] PCP - General Internal Medicine 03/03/22 Group, [facility] [address] [place] [address] Cardiology 09/09/22 Pick And Shovel Worker Relationship Specialty Start Date End Date Ryan Edwards, NON DESTRUCTIVE TESTING ENGINEER.WAFFLE MACHINE OPERATOR [address] [place] [address] PCP - General Internal Medicine 03/03/22 Group, [facility] [address] [place] [address] Cardiology 09/09/22 Pick And Shovel Worker Relationship Specialty Start Date End Date Ryan Edwards, NON DESTRUCTIVE TESTING ENGINEER.WAFFLE MACHINE OPERATOR [address] [place] [address] PCP - General Internal Medicine 03/03/22 Group, [facility] [address] [place] [address] Cardiology 09/09/22 Pick And Shovel Worker Relationship Specialty Start Date End Date Ryan Edwards, NON DESTRUCTIVE TESTING ENGINEER.WAFFLE MACHINE OPERATOR [address] [place] [address] PCP - General Internal Medicine 03/03/22 Group, [facility] [address] [place] [address] Cardiology 09/09/22 Pick And Shovel Worker Relationship Specialty Start Date End Date Ryan Edwards, NON DESTRUCTIVE TESTING ENGINEER.WAFFLE MACHINE OPERATOR [address] [place] [address] PCP - General Internal Medicine 03/03/22 Group, [facility] [address] [place] [address] Cardiology 09/09/22 Pick And Shovel Worker Relationship Specialty Start Date End Date Ryan Edwards, NON DESTRUCTIVE TESTING ENGINEER.WAFFLE MACHINE OPERATOR [address] [place] [address] PCP - General Internal Medicine 03/03/22 Group, [facility] [address] [place] [address] Cardiology 09/09/22 Pick And Shovel Worker Relationship Specialty Start Date End Date Ryan Edwards, NON DESTRUCTIVE TESTING ENGINEER.WAFFLE MACHINE OPERATOR [address] [place] [address] PCP - General Internal Medicine 03/03/22 Group, [facility] [address] [place] [address] Cardiology 09/09/22 Pick And Shovel Worker Relationship Specialty Start Date End Date Ryan Edwards, NON DESTRUCTIVE TESTING ENGINEER.WAFFLE MACHINE OPERATOR [address] [place] [address] PCP - General Internal Medicine 03/03/22 Group, [facility] [address] [place] [address] Cardiology 09/09/22 Katya Ortiz RN Primary Care Bowling Ball Marker 05/01/23 Pick And Shovel Worker Relationship Specialty Start Date End Date Ryan Edwards, NON DESTRUCTIVE TESTING ENGINEER.WAFFLE MACHINE OPERATOR [address] [place] [address] PCP - General Internal Medicine 03/03/22 Group, [facility] [address] [place] [address] Cardiology 09/09/22 Katya Ortiz RN Primary Care Bowling Ball Marker 05/01/23 Team Status: Inactive Member Role Status Dates Ryan Edwards TESTING LEAD, TESTING LEAD-C Primary Care Provider, Referri ng Provider Active Venus Berry TESTING LEAD, TESTING LEAD-C Attending Provider Active Team Status: Active Member Role Status Dates Ryan Edwards TESTING LEAD, TESTING LEAD-C Primary Care Provider Active Venus Martin Attending Provider Active Team Status: Inactive Member Role Status Dates Ryan Edwards TESTING LEAD, TESTING LEAD-C Primary Care Provider Active Venus Berry TESTING LEAD, TESTING LEAD-C Attending Provider, Referring P karolina Active Pick And Shovel Worker Relationship Specialty Start Date End Date Ryan Edwards, NON DESTRUCTIVE TESTING ENGINEER.WAFFLE MACHINE OPERATOR [address] [place] [address] PCP - General Internal Medicine 03/03/22 Group, [facility] [address] [place] [address] Cardiology 09/09/22 Katya Ortiz, atmospheric drier tender Bowling Ball Marker 05/01/23 06/02/23 Pick And Shovel Worker Relationship Specialty Start Date End Date Ryan Edwards, NON DESTRUCTIVE TESTING ENGINEER.WAFFLE MACHINE OPERATOR [address] [facility] [address] PCP - General Internal Medicine 03/03/22 Group, [facility] [address] [place] [address] Cardiology 09/09/22 Pick And Shovel Worker Relationship Specialty Start Date End Date Ryan Edwards, NON DESTRUCTIVE TESTING ENGINEER.WAFFLE MACHINE OPERATOR [address] [place] [address] PCP - General Internal Medicine 03/03/22 Group, [facility] [address] [place] [address] Cardiology 09/09/22 Pick And Shovel Worker Relationship Specialty Start Date End Date Ryan Edwards, NON DESTRUCTIVE TESTING ENGINEER.WAFFLE MACHINE OPERATOR [address] [place] [address] PCP - General Internal Medicine 03/03/22 Group, [facility] [address] [place] [address] Cardiology 09/09/22 Pick And Shovel Worker Relationship Specialty Start Date End Date Ryan Edwards, NON DESTRUCTIVE TESTING ENGINEER.WAFFLE MACHINE OPERATOR [address] [place] [address] PCP - General Internal Medicine 03/03/22 Group, [facility] [address] [place] [address] Cardiology 09/09/22 Pick And Shovel Worker Relationship Specialty Start Date End Date Ryan Edwards, NON DESTRUCTIVE TESTING ENGINEER.WAFFLE MACHINE OPERATOR [address] [place] [address] PCP - General Internal Medicine 03/03/22 Group, [facility] [address] [place] [address] Cardiology 09/09/22 Pick And Shovel Worker Relationship Specialty Start Date End Date Ryan Edwards, NON DESTRUCTIVE TESTING ENGINEER.WAFFLE MACHINE OPERATOR [address] [facility] [place] [place] [address] PCP - General Internal Medicine 03/03/22 Group, [facility] [address] [place] [address] Cardiology 09/09/22 Pick And Shovel Worker Relationship Specialty Start Date End Date Ryan Edwards, NON DESTRUCTIVE TESTING ENGINEER.WAFFLE MACHINE OPERATOR [address] [facility] [place] [address] PCP - General Internal Medicine 03/03/22 Group, [facility] [address] [place] [address] Cardiology 09/09/22 Pick And Shovel Worker Relationship Specialty Start Date End Date Ryan Edwards, NON DESTRUCTIVE TESTING ENGINEER.WAFFLE MACHINE OPERATOR [address] [place] [address] PCP - General Internal Medicine 03/03/22 Group, [facility] [address] [place] [address] Cardiology 09/09/22 Pick And Shovel Worker Relationship Specialty Start Date End Date Ryan Edwards, NON DESTRUCTIVE TESTING ENGINEER.WAFFLE MACHINE OPERATOR [address] [place] [address] PCP - General Internal Medicine 03/03/22 Group, [facility] [address] [place] [address] Cardiology 09/09/22 Pick And Shovel Worker Relationship Specialty Start Date End Date Ryan Edwards, NON DESTRUCTIVE TESTING ENGINEER.WAFFLE MACHINE OPERATOR [address] [place] [address] PCP - General Internal Medicine 03/03/22 Group, [facility] [address] [place] [address] Cardiology 09/09/22 Pick And Shovel Worker Relationship Specialty Start Date End Date Ryan Edwards, NON DESTRUCTIVE TESTING ENGINEER.WAFFLE MACHINE OPERATOR [address] [place] [address] PCP - General Internal Medicine 03/03/22 Group, [facility] [address] [place] [address] Cardiology 09/09/22 Pick And Shovel Worker Relationship Specialty Start Date End Date Ryan Edwards, NON DESTRUCTIVE TESTING ENGINEER.WAFFLE MACHINE OPERATOR [address] [place] [address] PCP - General Internal Medicine 03/03/22 Group, [facility] [address] [place] [address] Cardiology 09/09/22 Pick And Shovel Worker Relationship Specialty Start Date End Date Ryan Edwards, NON DESTRUCTIVE TESTING ENGINEER.WAFFLE MACHINE OPERATOR [address] [place] [address] PCP - General Internal Medicine 03/03/22 Group, [facility] [address] [place] [address] Cardiology 09/09/22 Pancho Pino MD [address] [place] [address] Orthopedics 09/25/23 Pick And Shovel Worker Relationship Specialty Start Date End Date Ryan Edwards, NON DESTRUCTIVE TESTING ENGINEER.WAFFLE MACHINE OPERATOR [address] [place] [address] PCP - General Internal Medicine 03/03/22 Group, [facility] [address] [place] [address] Cardiology 09/09/22 Pancho Pino MD [address] [place] [address] Orthopedics 09/25/23 Pick And Shovel Worker Relationship Specialty Start Date End Date Ryan Edwards, NON DESTRUCTIVE TESTING ENGINEER.WAFFLE MACHINE OPERATOR [address] [place] [address] PCP - General Internal Medicine 03/03/22 Group, [facility] [address] [place] [address] Cardiology 09/09/22 Pancho Pino MD [address] [place] [address] Orthopedics 09/25/23 Pick And Shovel Worker Relationship Specialty Start Date End Date Ryan Edwards, NON DESTRUCTIVE TESTING ENGINEER.WAFFLE MACHINE OPERATOR [address] [place] [address] PCP - General Internal Medicine 03/03/22 Group, [facility] [address] [place] [address] Cardiology 09/09/22 Pancho Pino MD [address] [place] [address] Orthopedics 09/25/23 Pick And Shovel Worker Relationship Specialty Start Date End Date Ryan Edwards, NON DESTRUCTIVE TESTING ENGINEER.WAFFLE MACHINE OPERATOR [address] [place] [address] PCP - General Internal Medicine 03/03/22 Group, [facility] [address] [place] [address] Cardiology 09/09/22 Pancho Pino MD [address] [place] [address] Orthopedics 09/25/23 Pick And Shovel Worker Relationship Specialty Start Date End Date Ryan Edwards, NON DESTRUCTIVE TESTING ENGINEER.WAFFLE MACHINE OPERATOR [address] [place] [address] PCP - General Internal Medicine 03/03/22 Group, [facility] [address] [place] [address] Cardiology 09/09/22 Pancho Pino MD [address] [place] [address] Orthopedics 09/25/23 Pick And Shovel Worker Relationship Specialty Start Date End Date Ryan Edwards, NON DESTRUCTIVE TESTING ENGINEER.WAFFLE MACHINE OPERATOR [address] [place] [address] PCP - General Internal Medicine 03/03/22 Group, [facility] [address] [place] [address] Cardiology 09/09/22 Pancho Pino MD [address] [place] [address] Orthopedics 09/25/23 Pick And Shovel Worker Relationship Specialty Start Date End Date Ryan Edwards, NON DESTRUCTIVE TESTING ENGINEER.WAFFLE MACHINE OPERATOR [address] [place] [address] PCP - General Internal Medicine 03/03/22 Group, [facility] [address] [place] [address] Cardiology 09/09/22 Pancho Pino MD [address] [place] [address] Orthopedics 09/25/23 Pick And Shovel Worker Relationship Specialty Start Date End Date Ryan Edwards, NON DESTRUCTIVE TESTING ENGINEER.WAFFLE MACHINE OPERATOR [address] [place] [address] PCP - General Internal Medicine 03/03/22 Group, [facility] [address] [place] [address] Cardiology 09/09/22 Pancho Pino MD [address] [place] [address] Orthopedics 09/25/23 Pick And Shovel Worker Relationship Specialty Start Date End Date Ryan Edwards, NON DESTRUCTIVE TESTING ENGINEER.WAFFLE MACHINE OPERATOR [address] [place] [address] PCP - General Internal Medicine 03/03/22 Group, [facility] [address] [place] [address] Cardiology 09/09/22 Pancho Pino MD [address] [place] [address] Orthopedics 09/25/23 Pick And Shovel Worker Relationship Specialty Start Date End Date Ryan Edwards, NON DESTRUCTIVE TESTING ENGINEER.WAFFLE MACHINE OPERATOR [address] [place] [address] PCP - General Internal Medicine 03/03/22 Group, [facility] [address] [place] [address] Cardiology 09/09/22 Pancho Pino MD [address] [place] [address] Orthopedics 09/25/23 Pick And Shovel Worker Relationship Specialty Start Date End Date Ryan Edwards, NON DESTRUCTIVE TESTING ENGINEER.WAFFLE MACHINE OPERATOR [address] [place] [address] PCP - General Internal Medicine 03/03/22 Group, [facility] [address] [place] [address] Cardiology 09/09/22 Pancho Pino MD [address] [place] [address] Orthopedics 09/25/23 Pick And Shovel Worker Relationship Specialty Start Date End Date Ryan Edwards, NON DESTRUCTIVE TESTING ENGINEER.WAFFLE MACHINE OPERATOR [address] [place] [address] PCP - General Internal Medicine 03/03/22 Group, [facility] [address] [place] [address] Cardiology 09/09/22 Pancho Pino MD [address] [place] [address] Orthopedics 09/25/23 Pick And Shovel Worker Relationship Specialty Start Date End Date Ryan Edwards NON DESTRUCTIVE TESTING ENGINEER.WAFFLE MACHINE OPERATOR [address] [place] [address] PCP - General Internal Medicine 03/03/22 Group, [facility] [address] [place] [address] Cardiology 09/09/22 Pancho Pino MD [address] [place] [address] Orthopedics 09/25/23 Pick And Shovel Worker Relationship Specialty Start Date End Date Ryan Edwards, NON DESTRUCTIVE TESTING ENGINEER.WAFFLE MACHINE OPERATOR [address] [place] [address] PCP - General Internal Medicine 03/03/22 Group, [facility] [address] [place] [address] Cardiology 09/09/22 Pancho Pino MD [address] [place] [address] Orthopedics 09/25/23 Pick And Shovel Worker Relationship Specialty Start Date End Date Ryan Edwards, NON DESTRUCTIVE TESTING ENGINEER.WAFFLE MACHINE OPERATOR [address] [place] [address] PCP - General Internal Medicine 03/03/22 Group, [facility] [address] [place] [address] Cardiology 09/09/22 Pancho Pino MD [address] [place] [address] Orthopedics 09/25/23 Pick And Shovel Worker Relationship Specialty Start Date End Date Ryan Edwards, NON DESTRUCTIVE TESTING ENGINEER.WAFFLE MACHINE OPERATOR [address] [place] [address] PCP - General Internal Medicine 03/03/22 Group, [facility] [address] [place] [address] Cardiology 09/09/22 Pancho Pino MD [address] [place] [address] Orthopedics 09/25/23 Pick And Shovel Worker Relationship Specialty Start Date End Date Ryan Edwards, NON DESTRUCTIVE TESTING ENGINEER.WAFFLE MACHINE OPERATOR [address] [place] [address] PCP - General Internal Medicine 03/03/22 Group, [facility] [address] [place] [address] Cardiology 09/09/22 Pancho Pino MD [address] [place] [address] Orthopedics 09/25/23 Pick And Shovel Worker Relationship Specialty Start Date End Date Ryan Edwards, NON DESTRUCTIVE TESTING ENGINEER.WAFFLE MACHINE OPERATOR [address] [place] [address] PCP - General Internal Medicine 03/03/22 Group, [facility] [address] [place] [address] Cardiology 09/09/22 Pancho Pino MD [address] [place] [address] Orthopedics 09/25/23 Pick And Shovel Worker Relationship Specialty Start Date End Date Ryan Edwards, NON DESTRUCTIVE TESTING ENGINEER.WAFFLE MACHINE OPERATOR [address] [place] [address] PCP - General Internal Medicine 03/03/22 Group, [facility] [address] [place] [address] Cardiology 09/09/22 Pancho Pino MD [address] [place] [address] Orthopedics 09/25/23 Pick And Shovel Worker Relationship Specialty Start Date End Date Ryan Edwards, NON DESTRUCTIVE TESTING ENGINEER.WAFFLE MACHINE OPERATOR [address] [place] [address] PCP - General Internal Medicine 03/03/22 Group, [facility] [address] [place] [address] Cardiology 09/09/22 Pancho Pino MD [address] [place] [address] Orthopedics 09/25/23 Pick And Shovel Worker Relationship Specialty Start Date End Date Ryan Edwards, NON DESTRUCTIVE TESTING ENGINEER.WAFFLE MACHINE OPERATOR [address] [place] [address] PCP - General Internal Medicine 03/03/22 Group, [facility] [address] [place] [address] Cardiology 09/09/22 Pancho Pino MD [address] [place] [address] Orthopedics 09/25/23 Pick And Shovel Worker Relationship Specialty Start Date End Date Ryan Edwards NON DESTRUCTIVE TESTING ENGINEER.WAFFLE MACHINE OPERATOR [address] [place] [address] PCP - General Internal Medicine 03/03/22 Group, [facility] [address] [place] [address] Cardiology 09/09/22 Pancho Pino MD [address] [place] [address] Orthopedics 09/25/23 Pick And Shovel Worker Relationship Specialty Start Date End Date Ryan Edwards, NON DESTRUCTIVE TESTING ENGINEER.WAFFLE MACHINE OPERATOR [address] [place] [address] PCP - General Internal Medicine 03/03/22 Group, [facility] [address] [place] [address] Cardiology 09/09/22 Pancho Pino MD [address] [place] [address] Orthopedics 09/25/23 Pick And Shovel Worker Relationship Specialty Start Date End Date Ryan Edwards, NON DESTRUCTIVE TESTING ENGINEER.WAFFLE MACHINE OPERATOR [address] [place] [address] PCP - General Internal Medicine 03/03/22 Group, [facility] [address] [place] [address] Cardiology 09/09/22 Pancho Pino MD [address] [place] [address] Orthopedics 09/25/23 Pick And Shovel Worker Relationship Specialty Start Date End Date Ryan Edwards, NON DESTRUCTIVE TESTING ENGINEER.WAFFLE MACHINE OPERATOR [address] [place] [address] PCP - General Internal Medicine 03/03/22 Group, [facility] [address] [place] [address] Cardiology 09/09/22 Pancho Pino MD [address] [place] [address] Orthopedics 09/25/23 Pick And Shovel Worker Relationship Specialty Start Date End Date Ryan Edwards, NON DESTRUCTIVE TESTING ENGINEER.WAFFLE MACHINE OPERATOR [address] [place] [address] PCP - General Internal Medicine 03/03/22 Group, [facility] [address] [place] [address] Cardiology 09/09/22 Pancho Pino MD [address] [address] Orthopedics 09/25/23 Ileana Quiroz MD, PhD [address] [place] [address] Ophthalmology 10/04/24 Lyssa Colón MD [address] [address] Ent - Otolaryngology 10/04/24 Pick And Shovel Worker Relationship Specialty Start Date End Date Ryan Edwards, NON DESTRUCTIVE TESTING ENGINEER.WAFFLE MACHINE OPERATOR [address] [place] [address] PCP - General Internal Medicine 03/03/22 Group, [facility] [address] [place] [address] Cardiology 09/09/22 Pancho Pino MD [address] [address] Orthopedics 09/25/23 Ileana Quiroz MD, PhD [address] [place] [address] Ophthalmology 10/04/24 Lyssa Colón MD [address] [address] Ent - Otolaryngology 10/04/24 Pick And Shovel Worker Relationship Specialty Start Date End Date Ryan Edwards, NON DESTRUCTIVE TESTING ENGINEER.WAFFLE MACHINE OPERATOR [address] [place] [address] PCP - General Internal Medicine 03/03/22 Group, [facility] [address] [place] [address] Cardiology 09/09/22 Pancho Pino MD [address] [address] Orthopedics 09/25/23 Ileana Quiroz MD, PhD [address] [place] [address] Ophthalmology 10/04/24 Lyssa Colón MD [address] [address] Ent - Otolaryngology 10/04/24 Pick And Shovel Worker Relationship Specialty Start Date End Date Ryan Edwards, NON DESTRUCTIVE TESTING ENGINEER.WAFFLE MACHINE OPERATOR [address] [place] [id number] PCP - General Internal Medicine 03/03/22 Group, [facility] [address] [place] [address] Cardiology 09/09/22 Pancho Pino MD [address] [place] [id number] Orthopedics 09/25/23 Ileana Quiroz MD, PhD [address] [place] [address] Ophthalmology 10/04/24 Lyssa Colón MD [address] [address] Ent - Otolaryngology 10/04/24 Pick And Shovel Worker Relationship Specialty Start Date End Date Ryan Edwards NON DESTRUCTIVE TESTING ENGINEER.WAFFLE MACHINE OPERATOR [address] [place] [address] PCP - General Internal Medicine 03/03/22 Group, [facility] [address] [place] [address] Cardiology 09/09/22 Pancho Pino MD [address] [place] [address] Orthopedics 09/25/23 Ileana Quiroz MD, PhD [address] [place] [address] Ophthalmology 10/04/24 Lyssa Colón MD [address] [address] Ent - Otolaryngology 10/04/24 Maty Stubbs, IBIS Primary Care Bowling Ball Marker 11/07/24 Pick And Shovel Worker Relationship Specialty Start Date End Date Ryan Edwards, NON DESTRUCTIVE TESTING ENGINEER.WAFFLE MACHINE OPERATOR [address] [place] [address] PCP - General Internal Medicine 03/03/22 Group, [facility] [address] [facility] [place] [address] Cardiology 09/09/22 Pancho Pino MD [address] [place] [address] Orthopedics 09/25/23 Ileana Quiroz MD, PhD [address] [place] [address] Ophthalmology 10/04/24 Lyssa Colón MD [address] [address] Ent - Otolaryngology 10/04/24 Maty Stubbs, IBIS Primary Care Bowling Ball Marker 11/07/24 Team Status: Active Member Role/Relationship Status Dates Ryan Edwards TESTING LEAD, TESTING LEAD-C Primary Care Provider Active Team Status: Inactive Member Role/Relationship Status Dates Ryan Edwards NP, TESTING LEAD-C Primary Care Provider Active Start: November 11, 2024 End: November 11, 2024 Ryan Edwards NP, TESTING LEAD-C Referring Provider Active Start: November 11, 2024 End: November 11, 2024 Venus Berry NP, TESTING LEAD-C Attending Provider Active Start: November 11, 2024 End: November 11, 2024 Reason for Visit (unrecogniz ed section and content) Reason Comments Occupational Therapy Specialty Diagnoses / Procedures Referred By Contac t Referred To Contact Occupational Therapy / OCCUPATIONAL THERAPY Diagnoses post op thumb Procedures NEW RS OT HAND Pancho Pino MD [address] [address] Phone: tel: fax: Andrés Ott, OTR/L [address] [place] [address] Phone: tel: Referral ID Status Reason Start Date Expiration Date V isits Requested Visits Authorized [id number] Authorized 09/15/2024 11/11/2024 6 6 Reason Comments OT Progress Note Reason Comments PT Progress Note PT Discharge Specialty Diagnoses / Procedures Referred By Contac t Referred To Contact PHYSICAL THERAPY Diagnoses Injury of right Achilles tendon, subsequent encounter Procedures CONSULT TO PHYSICAL THERAPY PHYSICAL THERAPY EVALUATION HIGH COMPLEX 45 MINS Rickey Woodruff DPM [address] [address] Mike Peacock, PT [address] [place] [address] Referral ID Status Reason Start Date Expiration Date Visits Requested Visits Authorized [id number] Authorized PCP Requested Referral Auto-Generate d Referral 08/06/2023 05/17/2024 99 99 Reason Comments Physical Therapy Reason Onset Date Comments Refill Request 03/10/2022 Reason Comments Coumadin/INR Reason Comments Elevated PSA Specialty Diagnoses / Procedures Referred By Contac t Referred To Contact Urology / [facility] Department Diagnoses Elevated PSA Procedures CONSULT TO UROLOGY OFFICE/OUTPATIENT NEW HIGH MDM 60-74 MINUTES Ryan Edwards, NON DESTRUCTIVE TESTING ENGINEER.WAFFLE MACHINE OPERATOR [address] [place] [address] Stan Tai Jr., MD [address] [place] [address] Referral ID Status Reason Start Date Expiration Date V isits Requested Visits Authorized [id number] Closed PCP Requested Referral 02/26/2022 02/26/2023 1 [...] & W/CONTRAST MATERIAL Stan Tai Jr., MD [address] [place] [address] Mr Imaging Referral ID Status Reason Start Date Expiration Date V isits Requested Visits Authorized [id number] Closed Auto-Generate d Referral 03/27/2022 04/26/2023 1 [...] Rickey Woodruff DPM [address] [address] [place] [address] Referral ID Status Reason Start Date Expiration Date V isits Requested Visits Authorized [id number] Closed Auto-Generate d Referral 04/02/2023 05/01/2024 1 1 Reason Comments ER F/U Reason Comments New Reason Comments Established Patient MRI results , denies any pain, cast intact at this time, denies falls or walking on it. Follow Up MRI results , denies any pain, cast intact at this time, denies falls or walking on it. Reason Comments Orders Reason Comments Orders Handicap parking norma card Reason Comments Follow Up Reason Comments Medication Question Reason Comments Electronic Communication Medical clearan ce form for endoscopy. Reason Comments PT Eval Reason Comments Follow Up Reason Onset Date Comments ED Follow-up 09/09/2023 [place] [facility] 09/07/23 Reason Comments Established Patient Reason Comments Retinal Detachment Follow Up Status Post Par Plana Vitrectomy Right Eye (approximately 1999)Status Post Scleral Buckle/Pars Plana Vitrectomy Left Eye (2007) Reason Comments Refraction Reason Comments Elevated PSA Reason Onset Date Comments Refill Request 05/04/2024 Reason Comments Med Change Request Reason Comments Orders Reason Comments Appointment AE, [place] Reason Onset Date Comments Refill Request 08/18/2024 Reason Comments Established Patient Pain Specialty Diagnoses / Procedures Referred By Contadia t Referred To Contact Orthopedics / [facility] DEPARTMENT Diagnoses Pain of left thumb Procedures CONSULT TO ORTHOPAEDICS OFFICE/OUTPATIENT [facility] MDM 60 MINUTES Ryan Edwards, NON DESTRUCTIVE TESTING ENGINEER.WAFFLE MACHINE OPERATOR [address] [place] [address] Phone: tel: fax: Pancho Pino MD [address] [facility] [address] [place] [address] Phone: tel: fax: Referral ID Status Reason Start Date Expiration Date V isits Requested Visits Authorized [id number] Closed PCP Requested Referral 08/08/2024 08/08/2025 1 1 Reason Onset Date Comments Results 08/29/2024 Reason Comments OT EVAL Specialty Diagnoses / Procedures Referred By Contac t Referred To Contact OCCUPATIONAL THERAPY Diagnoses Left hand pain Rupture of extensor tendon of finger Procedures CONSULT TO BOAT DESIGNER OCCUPATIONAL THERAPY EVAL HIGH COMPLEX 60 MINS Pancho Pino MD [address] [facility] [address] [place] [address] Phone: tel: fax: Gely Marrero OT/L, OTD [address] [place] [address] Phone: tel: Referral ID Status Reason Start Date Expiration Date Visits Requested Visits Authorized [id number] Authorized Auto-Generat ed Referral 08/26/2024 11/01/2024 6 6 Reason Comments Earwax Unable to have audio due to cerumen impaction. Reason Comments Post Op Left wrist palmeris longus to left thumb Reason Comments OT Re-eval Reason Comments Post Op Denies pain Reason Onset Date Comments Transition Of Care 11/07/2024 CC Cruz D/C 11/06/24 Reason Comments Medication Problem Potassium from hospi chris d/c Goals (unrecognized section and content) Goals may be documented in a n alternate sectionGoals may be documented in an alternate sectionGoals may be documented in an alternate section FOR RECORDS PERTAINING TO PATIENTS WHO ARE [...] BE BASED ON THE PRIMARY CLINICAL RECORDS. [employer] provides no warranty or guarantee of the accuracy or completeness of information in this document.
== END | disposition home or self-care (01) ==
PROVIDERS: PCP Nurse Practitioner Adult Health; Referring Provider Nurse Practitioner Gerontology; Visit Provider Nurse Practitioner Gerontology
DX: I48.0 Paroxysmal atrial fibrillation (principal); I47.10 Supraventricular tachycardia, unspecified
CPT/HCPCS: 36415; 80048; 83735; 84443

== ENCOUNTER 2024-12-06 16:44 | Observation (INO) | payer MEDICARE, SELFPAY ==
--- NOTE | 2024-11-24 11:58 | RAD_ITS ---
PROCEDURE: CHEST PA AND LATERAL 11/24/2024 REASON FOR EXAM: SHORTNESS OF BREATH/SVT ABLATION TECHNIQUE: CHEST PA AND LATERAL COMPARISON: None. FINDINGS: The heart is enlarged. The lungs are clear. No pleural effusion or pneumothorax. A device overlies the anterior mid chest. RAD/Chest PA and Lateral IMPRESSION: NO ACUTE FINDINGS. Reading Location: [place] [address]
[2024-11-24 13:26] LABS: Prothrombin Time (Protime)PT. 20.1 SECONDS (11.7-14.9)
[2024-11-24 14:16] LABS: Pro- Brain NATRIURETIC PEPTIDE 229 pg/mL (<=900)
[2024-12-01 11:19] LABS: Prothrombin Time (Protime)PT. 25.1 SECONDS (11.7-14.9)
[2024-12-05 08:28] VITALS: BMI 30.5
[2024-12-06 10:31] LABS: INR Fingerstick 3.4
[2024-12-06 10:53] LABS: Prothrombin Time (Protime)PT. 28.8 SECONDS (11.7-14.9)
--- NOTE | 2024-12-06 13:51 | ELECTROSTU_ITS ---
Electrophysiology Report Electrophysiology Report Ru Workman is a 69 year old male who has a past medical history of SVT, HTN, and pAF, who presented to the [place] [facility] lab for further evaluation regarding SVT. Procedure Summary * Patient prepped and draped in sterile fashion. * Right groin infiltrated with lidocaine. * Right femoral access obtained x3 with ultrasound guidance. * Sheaths inserted into femoral veins via Seldinger technique. * Catheters inserted through right groin. * EPS results listed below in conclusions. * Sheaths pulled in lab and hemostasis achieved per protocol. Findings: BASELINE ISUPREL (not performed) SCL: 664ms SCL: N/A AH: 110ms AH: N/A HV: 40 ms HV: N/A Maximum SNRT: 1000 ms CSNRT: 336 ms BASELINE Inducible Tachycardia: Yes Diagnosis: atypical AVNRT VA interval at Hisduring tachycardia: >70ms Ablation of: slow pathway Ablation Parameters: power titrated, irrigated Ablation Catheter Used: SF irrigated Results of Ablation Site of Ablation: slow pathway, multiple junctional beats Successful Post Ablation Testing BASELINE SCL: 660 ms AH: 96ms HV: 52ms AVBCL: 400ms AVN ERP 320ms @ 600ms VA BCL: 430ms VERP: 220ms @ 500ms Conclusions 1. Baseline rhythm is sinus rhyt. 2. Normal sinus node function 3. Normal AV node function, normal infranodal conduction (HV= 40ms). 4. No evidence of accessory pathway. 5. Evidence of dual AV node physiology with cross over 6. VA conduction present and is decremental.? 7. Easily inducible atypical AVNRT. Ablation performed in the slow pathway region with multiple junctional beats. 8. Post ablation- there was no inducible tachycardia, no cross over, and no echo beats. 9 Antegrade and retrograde conduction intact post ablation. Recommendations 1. Routine sheath management 2. Bedrest for 3 hours 3. The patient can continue to follow-up with Dr. Sparrow. 4. Stop metoprolol, continue diltiazem 5. Continue warafarin 6. Observe overnight.
[2024-12-06 17:46] VITALS: BMI 30.4
[2024-12-06 17:47] VITALS: BP 115/69; PULSE 95; RESP 18; TEMP 36.5; O2SAT 94
[2024-12-06 18:00] VITALS: BP 115/69; PULSE 95; RESP 18; TEMP 36.5; O2SAT 94
[2024-12-06 20:00] VITALS: BP 133/86; PULSE 90; RESP 16; TEMP 36.3; O2SAT 93
[2024-12-06 20:40] VITALS: BP 133/86; PULSE 90
[2024-12-07 02:00] VITALS: BP 116/77; PULSE 62; RESP 16; TEMP 36.7; O2SAT 92
[2024-12-07 03:01] VITALS: BMI 30.1
[2024-12-07 07:00] VITALS: PULSE 62
[2024-12-07 07:57] VITALS: BP 121/70; PULSE 82; RESP 12; TEMP 36.6; O2SAT 94
--- NOTE | 2024-12-07 08:15 | DS.PCM_ITS ---
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 Patient should continue his diltiazem and warfarin. He should stop the metoprolol. The patient be follow-up in the [facility] office in 7 to 14 days. (2) Paroxysmal atrial fibrillation: Status: Chronic Code(s): I48.0 - Paroxysmal atrial fibrillation Plan: Patient's telemetry shows normal sinus rhythm with no ectopy. He was instructed to reinstitute his Coumadin and his standard dosing regimen and follow-up per protocol for INR checks. Plan 1. Discharge to home today. 2. Discontinue metoprolol 3. Continue diltiazem and warfarin. 4. INR follow-up in 1 week. 5. Follow-up in the [facility] office with advanced practitioner in 7 to 14 days. Medications at Discharge Home Medications sildenafil 50 mg tablet 50 mg PO DAILY PRN erectile dysfunction 08/27/22 vitamin B complex 1 tab PO DAILY 08/27/22 warfarin 4 mg tablet 4 mg PO DAILY 08/27/22 warfarin 5 mg tablet 5 mg PO DAILY 08/27/22 cholecalciferol (vitamin D3) 125 mcg (5,000 unit) tablet 250 mcg PO DAILY 09/08/22 diltiazem HCl 240 mg capsule,extended release 24 hr 240 mg PO DAILY #90 caps 05/22/23 Hospital Course Operations None Procedures - (RF ablation of the slow pathway of the AV node-EP procedure) Summary of Care Provided Minutes Spent on Discharge: 30 Physical Exam Const alert and oriented x3 General Appearance: cooperative HEENT normocephalic Eyes EOMs intact bilaterally Chest inspection of chest normal Cardio regular rate and regular rhythm Cardio Narrative: Right groin intact no hematoma no bruit. Weight / BMI Weight Weight: 222 lb 3.615 oz Body Mass Index (BMI) 30.1 ABG / Lab / Microbiology Data Laboratory: Laboratory Results - last 24 hr 12/06/24 10:28: POC PT 35.0 H, INR 3.4 12/06/24 10:31: PT 28.8 H, INR 2.7 D/C Instructions Discharge Activity: Return to Normal Activity May resume sexual activity in: 10-14 days Lifting Restricted to (Lbs): 10 Lifting Restrictions: For 1 week Keep extremity elevated above heart level: Right Leg Remove Dressing in: 1 day DC O2, CPAP, BIPAP Needs Home O2 Discharge instructions: No Please Follow Up With: Venus Berry NP, PUBLICATIONS PRODUCTION SUPERVISOR-C When: 7 to 14 days patient needs INR in 7 days. Meaningful Use Info Meaningful Use Meaningful Use Diagnoses (Choose all that apply): None applicable Discharge Plan Admission Admit Date/Time: 12/06/24 16:44 Primary Reason for Your Visit: RF ablation for AV mikie reentrant tachycardia Attending Provider: Chris Bazan Primary Care Provider: Emma Tilley NP Consulting Providers: Chris Bazan Discharge Orders/Prescriptions Prescriptions: No Action sildenafil 50 mg tablet 50 mg PO DAILY PRN (Reason: erectile dysfunction) Rx Instructions: administer 30 minutes to 4 hours before activity vitamin B complex Tablet 1 tab PO DAILY warfarin 4 mg tablet 4 mg PO DAILY Protocol: Dose Management Condition: Thursday Dose/Route: 8 mg Instruction: 2 x 4 mg tablets Condition: Thursday Dose/Route: 10 mg Instruction: 2 x 5 mg tablets Condition: Thursday Dose/Route: 10 mg Instruction: 2 x 5 mg tablets Condition: Thursday Dose/Route: 10 mg Instruction: 2 x 5 mg tablets Condition: Dose/Route: 10 mg Instruction: 2 x 5 mg tablets Condition: Thursday Dose/Route: 10 mg Instruction: 2 x 5 mg tablets Condition: Thursday Dose/Route: 8 mg Instruction: 2 x 4 mg tablets Protocol Text: Adjustment Start Date: 12/01/24 INR Value: 2.2 INR Date: 12/01/24 Recheck Date: 12/06/24 warfarin 5 mg tablet 5 mg PO DAILY Protocol: Dose Management Condition: Thursday Dose/Route: 8 mg Instruction: 2 x 4 mg tablets Condition: Thursday Dose/Route: 10 mg Instruction: 2 x 5 mg tablets Condition: Thursday Dose/Route: 10 mg Instruction: 2 x 5 mg tablets Condition: Thursday Dose/Route: 10 mg Instruction: 2 x 5 mg tablets Condition: Dose/Route: 10 mg Instruction: 2 x 5 mg tablets Condition: Thursday Dose/Route: 10 mg Instruction: 2 x 5 mg tablets Condition: Thursday Dose/Route: 8 mg Instruction: 2 x 4 mg tablets Protocol Text: Adjustment Start Date: 12/01/24 INR Value: 2.2 INR Date: 12/01/24 Recheck Date: 12/06/24 cholecalciferol (vitamin D3) 125 mcg (5,000 unit) tablet 250 mcg PO DAILY diltiazem HCl 240 mg capsule,extended release 24hr 240 mg PO DAILY Qty: 90 3RF metoprolol tartrate 50 mg tablet 50 mg PO BID Referrals / Follow Up: Emma Tilley NP, PUBLICATIONS PRODUCTION SUPERVISOR-C [Primary Care Provider] - Courtney Ugarte PA [Med Staff - [facility] Practice [facility]] - Disposition Disposition (needs filled in before D/C Order can be placed): Home, Self Care Charges/Coding Visit Charges Inpatient E&M: 97191 Disch Hosp
--- NOTE | 2024-12-07 10:00 | NURSING ---
Pt given discharge instructions including medications, follow up appointments and all other discharge instructions. pt denies any further needs at this time. Iv removed with catheter intact, clean dry dressing applied. pt tolerated well. Telemetry removed and placed at nurses station. Pt going to get dressed and wheeled out when arrives.
--- NOTE | 2024-12-07 10:07 | PHA.DC.MR.R ---
Pharmacy [place] Med Reconciliation Pharmacy Service has performed discharge medication reconciliation for this patient. The patient's discharge medication list was reviewed for discrepancies and discrepancies were resolved. Medications at Discharge Home Medications sildenafil 50 mg tablet 50 mg PO DAILY PRN erectile dysfunction 08/27/22 vitamin B complex 1 tab PO DAILY vitamin 08/27/22 warfarin 4 mg tablet 4 mg PO DAILY blood thinner 08/27/22 warfarin 5 mg tablet 5 mg PO DAILY blood thinner 08/27/22 cholecalciferol (vitamin D3) 125 mcg (5,000 unit) tablet 250 mcg PO DAILY vitamin 09/08/22 diltiazem HCl 240 mg capsule,extended release 24 hr 240 mg PO DAILY heart rate #90 caps 05/22/23
== END 2024-12-07 10:23 | disposition home or self-care (01) ==
LOC: PCU 17:25
PROVIDERS: Nurse Practitioner Gerontology; Admitting Provider Physician Assistant Medical; PCP Nurse Practitioner Adult Health; Referring Provider Internal Medicine; Visit Provider Internal Medicine
DX: I47.10 Supraventricular tachycardia, unspecified (principal); I48.0 Paroxysmal atrial fibrillation; I10 Essential (primary) hypertension; Z79.01 Long term (current) use of anticoagulants; Z79.899 Other long term (current) drug therapy
CPT/HCPCS: 36415; 36416; 71046; 76937; 83880; 85610; 93653; 99152; 99153; 99221; C1730; C1894; C2630; G0378